=== PATIENT | female | born 1990 | race Caucasian/White ===

== ENCOUNTER 2016-04-15 06:48 | Inpatient (IN) | payer OTHER ==
[2016-03-05 14:06] VITALS: Ht 170.2 cm; Wt 65.4 kg
[~2016-04-15] VITALS: Ht 170.2 cm; Wt 65.4 kg
[2016-04-15] VITALS (16 sets, daily range): BP systolic 130–211; BP diastolic 64–142; PULSE 83–118; RESP 11–22; TEMP 97.8–98.6; O2SAT 91–100
[~2016-04-15 06:48] MED LIST: BUME1TAB4 PO; CAT1PAT TD; DOCU250C PO; ERYT500T74 PO; FURO-150 PO; HYDR-4039 PO; HYDR-4100 PO; HYDR100T25 PO; HYDR2TAB34 PO; LON10 PO; LORA-259 PO; NIFE-2 PO; NIFE10CA2 PO; OXYC10TA71 PO; SSNOVOLOG SUBCUT; TOPXL100 PO
[2016-04-15] MEDS ORDERED: hydrALAZINE HCL 20 MG/ML VIAL IVP ONE ×2 (07:30→10:15)
[2016-04-15 07:43] LABS: BASOPHILS # (AUTO) 0.1 K/uL (0.0-0.2); BASOPHILS % (AUTO) 1.1 % (0.0-2.0); EOSINOPHILS % (AUTO) 0.4 % (0.0-4.0); HEMATOCRIT 34.5 % (36-48); HEMOGLOBIN 11.5 g/dL (12.0-16.0); LYMPHOCYTES # (AUTO) 1.4 K/uL (1.0-5.5); LYMPHOCYTES % (AUTO) 11.4 % (20.5-51.5); MEAN CORPUSCULAR HEMOGLOBIN 31 pg (27-31); MEAN CORPUSCULAR HGB CONC 33 % (32-36); MEAN CORPUSCULAR VOLUME 92 fL (79.0-98.0); MONOCYTES # (AUTO) 0.4 K/uL (0.0-1.0); MONOCYTES % (AUTO) 3.3 % (1.7-9.3); NEUTROPHILS # (AUTO) 10.3 K/uL (1.8-7.7); PLATELET COUNT (AUTO) 324 K/uL (130-430); RED BLOOD CELL COUNT(AUTO) 3.75 MIL/uL (4.2-6.2); RED CELL DISTRIBUTION WIDTH 14.4 % (9.0-15.0); WHITE BLOOD COUNT (AUTO) 12.2 K/uL (4.8-10.8)
[2016-04-15] MEDS ORDERED: HYDROmorphone 1 MG INJ. 1 MG/ML AMPUL IVP ONE (07:45)
[2016-04-15] MEDS ORDERED: ONDANSETRON HCL 4 MG/2 ML VIAL IVP ONE (07:45)
[2016-04-15 07:56] LABS: CALCIUM 9.5 mg/dL (8.4-11.0); POTASSIUM 4.2 mmol/L (3.5-5.1)
[2016-04-15 07:57] LABS: CREATININE 3.62 mg/dL (0.55-1.30)
[2016-04-15] MEDS ORDERED: NACL 0.9% 500 ML IV ONE (08:00)
[2016-04-15 08:05] LABS: ALBUMIN 3.2 g/dL (3.4-4.8); TOTAL BILIRUBIN 0.9 mg/dL (0.0-1.0); TOTAL PROTEIN, SERUM 7.3 g/dL (6.4-8.3)
[2016-04-15 08:08] LABS: NEUTROPHILS % (AUTO) 83.8 % (40.0-70.0)
[2016-04-15 08:24] LABS: INR 1.1 (0.8-1.2); PROTHROMBIN TIME 11.5 SECS (9.5-12.5)
[2016-04-15] MEDS ORDERED: INSULIN REGULAR, HUMAN 10 UNITS/0.1 ML INJ IVP ONE (08:45)
[2016-04-15] MEDS ORDERED: INSULIN REGULAR, HUMAN 10 UNITS/0.1 ML INJ ONE (09:05)
[2016-04-15] MEDS ORDERED: cloNIDine HCL 0.1 MG TABLET PO PRN (09:45)
[2016-04-15] MEDS ORDERED: METOCLOPRAMIDE HCL 10 MG/2 ML VIAL IVP PRN (10:15)
[2016-04-15] MEDS ORDERED: hydrALAZINE HCL 20 MG/ML VIAL ONE (10:26)
[2016-04-15] MEDS ORDERED: cloNIDine HCL 0.1 MG/24 HR PATCH.TDWK TD ONE (11:00)
[2016-04-15] MEDS ORDERED: PANTOPRAZOLE SODIUM 40 MG/VIAL (PROTONIX) IVP ONE (11:00)
[2016-04-15] MEDS: METOPROLOL SUCCINATE 50 MG TAB.SR.24H (TOPROL XL) PO SCH (12:30)
[2016-04-15] MEDS ORDERED: NIFEDIPINE 60 MG TABLET.SA (PROCARDIA XL 60 MG) PO ONE (13:30)
[2016-04-15] MEDS: ONDANSETRON HCL 4 MG/2 ML VIAL IVP PRN ×2 (13:42→20:58)
[2016-04-15] MEDS ORDERED: HYDROmorphone 2 MG/ML VIAL ONE (13:50)
[2016-04-15] MEDS: hydrALAZINE HCL 25 MG TABLET PO SCH ×2 (13:56→21:02)
[2016-04-15] MEDS: LABETALOL 100 MG/ 20ML VIAL IVP PRN ×2 (14:57→20:48)
[2016-04-15] MEDS ORDERED: INSULIN ASPART 100 UNITS/ML, 10 ML VIAL (NovoLOG) SUBCUT PRN (16:15)
[2016-04-15] MEDS ORDERED: HEPARIN SODIUM,PORCINE 5000 UNITS/ML VIAL MC ONE (16:30)
[2016-04-15] MEDS ORDERED: HEPARIN SODIUM,PORCINE 5000 UNITS/ML VIAL ONE (16:33)
[2016-04-15] MEDS: HYDROmorphone 2 MG/ML VIAL IVP PRN (17:49)
[2016-04-15] MEDS: HYDROcodone/ACETAMIN 10-325 MG TAB PO PRN (20:59)
[2016-04-15] MEDS: DOCUSATE SODIUM 250 MG CAPSULE PO SCH (20:59)
[2016-04-15] MEDS ORDERED: NIFEdipine 10 MG CAPSULE PO SCH (21:00)
[2016-04-15] MEDS: INSULIN ASPART 100 UNITS/ML, 10 ML VIAL (NovoLOG) SUBCUT PRN (21:14)
[2016-04-16] VITALS (16 sets, daily range): BP systolic 125–176; BP diastolic 73–110; PULSE 78–95; RESP 12–18; TEMP 96–98.9; O2SAT 88–100
[2016-04-16] MEDS: HYDROmorphone 2 MG/ML VIAL IVP PRN ×6 (02:19→21:33)
[2016-04-16] MEDS: LABETALOL 100 MG/ 20ML VIAL IVP PRN ×2 (03:19→07:00)
[2016-04-16] MEDS: ONDANSETRON HCL 4 MG/2 ML VIAL IVP PRN (05:25)
[2016-04-16] MEDS: hydrALAZINE HCL 25 MG TABLET PO SCH ×3 (06:23→21:28)
[2016-04-16] MEDS: INSULIN ASPART 100 UNITS/ML, 10 ML VIAL (NovoLOG) SUBCUT PRN ×4 (06:31→21:38)
[2016-04-16 06:37] LABS: BASOPHILS % (AUTO) 0.6 % (0.0-2.0); EOSINOPHILS # (AUTO) 0.2 K/uL (0.0-0.4); HEMATOCRIT 29.8 % (36-48); HEMOGLOBIN 9.6 g/dL (12.0-16.0); LYMPHOCYTES % (AUTO) 25.9 % (20.5-51.5); MEAN CORPUSCULAR HEMOGLOBIN 30 pg (27-31); MEAN CORPUSCULAR HGB CONC 32 % (32-36); MEAN CORPUSCULAR VOLUME 93 fL (79.0-98.0); MONOCYTES # (AUTO) 0.4 K/uL (0.0-1.0); MONOCYTES % (AUTO) 5.5 % (1.7-9.3); NEUTROPHILS # (AUTO) 5.1 K/uL (1.8-7.7); PLATELET COUNT (AUTO) 242 K/uL (130-430); RED CELL DISTRIBUTION WIDTH 14.8 % (9.0-15.0); WHITE BLOOD COUNT (AUTO) 7.7 K/uL (4.8-10.8)
[2016-04-16 06:58] LABS: ALBUMIN 2.7 g/dL (3.4-4.8); CREATININE 2.91 mg/dL (0.55-1.30); POTASSIUM 3.4 mmol/L (3.5-5.1); TOTAL BILIRUBIN 0.5 mg/dL (0.0-1.0); TOTAL PROTEIN, SERUM 6.2 g/dL (6.4-8.3)
[2016-04-16] MEDS: PANTOPRAZOLE SODIUM 40 MG/VIAL (PROTONIX) IVP SCH (08:45)
[2016-04-16] MEDS: METOPROLOL SUCCINATE 50 MG TAB.SR.24H (TOPROL XL) PO SCH (08:45)
[2016-04-16] MEDS: DOCUSATE SODIUM 250 MG CAPSULE PO SCH ×2 (08:46→21:31)
[2016-04-16] MEDS: NIFEDIPINE 60 MG TABLET.SA (PROCARDIA XL 60 MG) PO SCH ×2 (08:48→21:31)
[2016-04-16] MEDS ORDERED: NIFEDIPINE 60 MG TABLET.SA (PROCARDIA XL 60 MG) PO SCH (09:00)
[2016-04-17 01:20] VITALS: BP 110/62; PULSE 75; RESP 18; TEMP 97.6; O2SAT 96
[2016-04-17] MEDS: HYDROmorphone 2 MG/ML VIAL IVP PRN ×6 (01:34→22:05)
[2016-04-17 04:00] VITALS: BP 126/77; PULSE 74; RESP 16; TEMP 98.2; O2SAT 96
[2016-04-17] MEDS: hydrALAZINE HCL 25 MG TABLET PO SCH ×3 (05:46→22:00)
[2016-04-17 08:10] VITALS: BP 152/95; PULSE 84; RESP 20; TEMP 98.8; O2SAT 98
[2016-04-17 08:14] LABS: BASOPHILS % (AUTO) 0.6 % (0.0-2.0); EOSINOPHILS # (AUTO) 0.2 K/uL (0.0-0.4); HEMATOCRIT 32.9 % (36-48); HEMOGLOBIN 10.5 g/dL (12.0-16.0); LYMPHOCYTES # (AUTO) 1.4 K/uL (1.0-5.5); LYMPHOCYTES % (AUTO) 20.6 % (20.5-51.5); MEAN CORPUSCULAR HEMOGLOBIN 30 pg (27-31); MEAN CORPUSCULAR HGB CONC 32 % (32-36); MEAN CORPUSCULAR VOLUME 93 fL (79.0-98.0); MONOCYTES # (AUTO) 0.4 K/uL (0.0-1.0); MONOCYTES % (AUTO) 5.2 % (1.7-9.3); NEUTROPHILS # (AUTO) 4.8 K/uL (1.8-7.7); NEUTROPHILS % (AUTO) 70.6 % (40.0-70.0); PLATELET COUNT (AUTO) 260 K/uL (130-430); RED BLOOD CELL COUNT(AUTO) 3.55 MIL/uL (4.2-6.2); RED CELL DISTRIBUTION WIDTH 14.7 % (9.0-15.0); WHITE BLOOD COUNT (AUTO) 6.8 K/uL (4.8-10.8)
[2016-04-17] MEDS: DOCUSATE SODIUM 250 MG CAPSULE PO SCH ×2 (08:17→22:00)
[2016-04-17] MEDS: PANTOPRAZOLE SODIUM 40 MG/VIAL (PROTONIX) IVP SCH (08:17)
[2016-04-17] MEDS: INSULIN ASPART 100 UNITS/ML, 10 ML VIAL (NovoLOG) SUBCUT PRN ×2 (08:18→17:15)
[2016-04-17 08:27] LABS: ALBUMIN 2.8 g/dL (3.4-4.8); CALCIUM 8.6 mg/dL (8.4-11.0); CREATININE 4.17 mg/dL (0.55-1.30); POTASSIUM 4.3 mmol/L (3.5-5.1); TOTAL BILIRUBIN 0.4 mg/dL (0.0-1.0); TOTAL PROTEIN, SERUM 6.7 g/dL (6.4-8.3)
[2016-04-17] MEDS: NIFEDIPINE 60 MG TABLET.SA (PROCARDIA XL 60 MG) PO SCH ×2 (09:00→22:00)
[2016-04-17] MEDS: METOPROLOL SUCCINATE 50 MG TAB.SR.24H (TOPROL XL) PO SCH (09:00)
[2016-04-17] MEDS ORDERED: busPIRone HCL 5 MG TABLET PO ONE (11:30)
[2016-04-17 12:31] VITALS: BP 136/84; PULSE 81; RESP 16; TEMP 97.6; O2SAT 91
[2016-04-17] MEDS ORDERED: HEPARIN SODIUM,PORCINE 5000 UNITS/ML VIAL ONE (13:11)
[2016-04-17 16:00] VITALS: BP_SYST 146; BP_SYST 92; BP_DIAS 57; BP_DIAS 91; PULSE 75; PULSE 83; RESP 20; RESP 21; TEMP 98.6; TEMP 99; O2SAT 98; O2SAT 99
[2016-04-17 20:00] VITALS: BP 159/109; PULSE 81; RESP 16; TEMP 98.9; O2SAT 99
[2016-04-17] MEDS: busPIRone HCL 5 MG TABLET PO SCH (22:00)
[2016-04-18 00:55] VITALS: BP 157/100; PULSE 82; RESP 18; TEMP 96.7; O2SAT 100
[2016-04-18] MEDS: HYDROmorphone 2 MG/ML VIAL IVP PRN ×4 (02:37→14:21)
[2016-04-18 03:42] VITALS: BP 159/104; PULSE 86; RESP 18; TEMP 96.7; O2SAT 99
[2016-04-18] MEDS: hydrALAZINE HCL 25 MG TABLET PO SCH ×2 (06:20→14:22)
[2016-04-18] MEDS: INSULIN ASPART 100 UNITS/ML, 10 ML VIAL (NovoLOG) SUBCUT PRN (06:42)
[2016-04-18 07:26] LABS: CALCIUM 8.7 mg/dL (8.4-11.0); CREATININE 3.3 mg/dL (0.55-1.30); POTASSIUM 4.1 mmol/L (3.5-5.1)
[2016-04-18 07:56] VITALS: BP 168/115; PULSE 95; RESP 20; TEMP 97.4; O2SAT 95
[2016-04-18] MEDS: busPIRone HCL 5 MG TABLET PO SCH (08:08)
[2016-04-18] MEDS: PANTOPRAZOLE SODIUM 40 MG/VIAL (PROTONIX) IVP SCH (08:08)
[2016-04-18] MEDS: DOCUSATE SODIUM 250 MG CAPSULE PO SCH (08:08)
[2016-04-18] MEDS: METOPROLOL SUCCINATE 50 MG TAB.SR.24H (TOPROL XL) PO SCH (08:09)
[2016-04-18] MEDS: NIFEDIPINE 60 MG TABLET.SA (PROCARDIA XL 60 MG) PO SCH (08:10)
[2016-04-18] MEDS: HYDROcodone/ACETAMIN 10-325 MG TAB PO PRN (08:10)
[2016-04-18 11:48] VITALS: BP 134/86; PULSE 82; RESP 21; TEMP 98.6; O2SAT 98
[2016-04-18 12:00] VITALS: BP 134/86; PULSE 82; RESP 21; TEMP 98.6; O2SAT 98
[2016-04-18] MEDS ORDERED: INSU100V11 SQ ×2 (12:55→12:57)
[2016-04-18] MEDS ORDERED: TOPXL100 PO (12:59)
[2016-04-18] MEDS ORDERED: NIFE60TA7 PO (13:01)
[2016-04-18] MEDS ORDERED: METO-290 PO (13:04)
[2016-04-18] MEDS ORDERED: BUSP10TA3 PO (13:05)
[2016-04-18 14:48] VITALS: BP 136/85; PULSE 93; RESP 19; TEMP 97; O2SAT 98
[2016-04-22] MEDS ORDERED: cloNIDine HCL 0.1 MG/24 HR PATCH.TDWK TD SCH (09:00)
== END 2016-04-18 14:41 | disposition home or self-care (01) | DRG 291 ==
LOC: SED 06:48 → SMU 08:36 → SIC 09:55 → STU 04-16 16:23 → SMU 04-17 17:38
PROVIDERS: ADMIT Internal Medicine; ATTEND Internal Medicine
PROC: 5A1D60Z (ICD-10-PCS; principal; 2016-04-15)
DX: I13.2 Hypertensive heart and chronic kidney disease with heart failure and with stage 5 chronic kidney disease, or end stage renal disease (principal); I50.43 Acute on chronic combined systolic (congestive) and diastolic (congestive) heart failure; N18.6 End stage renal disease; F11.20 Opioid dependence, uncomplicated; I42.9 Cardiomyopathy, unspecified; I16.0 Hypertensive urgency; E10.22 Type 1 diabetes mellitus with diabetic chronic kidney disease; E10.65 Type 1 diabetes mellitus with hyperglycemia; G89.4 Chronic pain syndrome; K31.9 Disease of stomach and duodenum, unspecified; E86.0 Dehydration; E10.319 Type 1 diabetes mellitus with unspecified diabetic retinopathy without macular edema; E10.69 Type 1 diabetes mellitus with other specified complication; E10.43 Type 1 diabetes mellitus with diabetic autonomic (poly)neuropathy; H54.7 Unspecified visual loss; K31.84 Gastroparesis; M54.9 Dorsalgia, unspecified; Z79.4 Long term (current) use of insulin; Z91.14 Patient's other noncompliance with medication regimen; Z99.2 Dependence on renal dialysis; Z87.891 Personal history of nicotine dependence; Z93.0 Tracheostomy status; Z93.1 Gastrostomy status; Z88.8 Allergy status to other drugs, medicaments and biological substances; Z88.6 Allergy status to analgesic agent; Z91.040 Latex allergy status; Z79.899 Other long term (current) drug therapy
CPT/HCPCS: 36415; 71010; 80048; 80053; 82962; 83036; 83605; 83690-TC; 83880; 84100-TC; 84484; 84703; 85025; 85610-TC; 85730-TC; 87040-TC; 87081; 90935; 90937; 93005; 96361; 96374; 96375; 99285; C9113; J0360; J1170; J1644; J1815; J2405; J2765; J3490; J7030; J7040

== ENCOUNTER 2016-05-11 11:00 | Inpatient (IN) | payer OTHER ==
[2016-03-05 14:06] VITALS: Ht 170.2 cm; Wt 68.0 kg
[~2016-05-11] VITALS: Ht 170.2 cm; Wt 68.0 kg
[~2016-05-11 11:00] MED LIST changes: +BUSP10TA3 PO; +INSU100V11 SQ; +METO-290 PO; +NIFE60TA7 PO
[2016-05-11 11:14] VITALS: BP 157/101; PULSE 79; RESP 20; TEMP 97.9; O2SAT 98
--- NOTE | 2016-05-11 11:18 | NUR ---
Pt placed to ER bed 02 and to gown. Pt report given to AMANDA Richard.
--- NOTE | 2016-05-11 11:20 | NUR ---
ER at bedside examining patient.
--- NOTE | 2016-05-11 11:25 | NUR ---
Pt presents to ED c/o elevated BP from dialysis. Pt reports receiving full dialysis. BP 177/95 upon assessment. Pt h/o HTN,ESRD,IDDM
[2016-05-11 11:53] LABS: BILIRUBIN,URINE NEGATIVE (NEGATIVE); CLARITY/URINE CLEAR (CLEAR); COLOR,URINE YELLOW (YELLOW); GLUCOSE,URINE 3+ (NEGATIVE); KETONES,URINE NEGATIVE (NEGATIVE); LEUKOCYTE ESTERASE ,URINE NEGATIVE (NEGATIVE); NITRITE, URINE NEGATIVE (NEGATIVE); PH,URINE 7.5 (5.0-8.0); PROTEIN URINE 3+ (NEGATIVE); UROBILINOGEN,URINE 0.2 (0.2-1.0)
[2016-05-11 12:12] LABS: BASOPHILS % (AUTO) 0.3 % (0.0-2.0); EOSINOPHILS # (AUTO) 0.2 K/uL (0.0-0.4); EOSINOPHILS % (AUTO) 2.7 % (0.0-4.0); HEMATOCRIT 35.6 % (36-48); LYMPHOCYTES # (AUTO) 1.6 K/uL (1.0-5.5); LYMPHOCYTES % (AUTO) 20.9 % (20.5-51.5); MEAN CORPUSCULAR HEMOGLOBIN 31 pg (27-31); MEAN CORPUSCULAR HGB CONC 34 % (32-36); MEAN CORPUSCULAR VOLUME 92 fL (79.0-98.0); MONOCYTES # (AUTO) 0.4 K/uL (0.0-1.0); MONOCYTES % (AUTO) 5.5 % (1.7-9.3); NEUTROPHILS # (AUTO) 5.4 K/uL (1.8-7.7); NEUTROPHILS % (AUTO) 70.6 % (40.0-70.0); PLATELET COUNT (AUTO) 226 K/uL (130-430); RED BLOOD CELL COUNT(AUTO) 3.85 MIL/uL (4.2-6.2); RED CELL DISTRIBUTION WIDTH 14.3 % (9.0-15.0); WHITE BLOOD COUNT (AUTO) 7.6 K/uL (4.8-10.8)
[2016-05-11 12:16] LABS: BLOOD, URINE TRACE (NEGATIVE)
[2016-05-11 12:18] LABS: RBC,URINE 0-3 /HPF (0-3)
[2016-05-11 12:19] LABS: CALCIUM 8.9 mg/dL (8.4-11.0); CREATININE 2.53 mg/dL (0.55-1.30); POTASSIUM 3.6 mmol/L (3.5-5.1)
[2016-05-11 12:19] LABS: BACTERIA,URINE FEW /HPF (None Seen); MUCUS,URINE None Seen /LPF (None Seen)
[2016-05-11 12:22] LABS: PROTHROMBIN TIME 10.8 SECS (9.5-12.5)
[2016-05-11 12:24] LABS: ALBUMIN 3.1 g/dL (3.4-4.8); TOTAL BILIRUBIN 0.7 mg/dL (0.0-1.0); TOTAL PROTEIN, SERUM 7.2 g/dL (6.4-8.3)
--- NOTE | 2016-05-11 12:30 | NUR ---
# 20 gauge angiocath placed to LH. Use of asceptic technique. Opsite placed over site. Blood return noted. Flushed with 10 cc of normal saline. No evidence of infiltration noted. Patient tolerated well.
[2016-05-11] MEDS ORDERED: INSULIN REGULAR, HUMAN 100 UNITS/ML, 10 ML VIAL (novoLIN R) SUBCUT PRN (13:30)
[2016-05-11] MEDS ORDERED: MAGNESIUM CITRATE 300 ML ORAL SOLUTION PO ONE (13:30)
[2016-05-11] MEDS ORDERED: cloNIDine HCL 0.1 MG TABLET PO ONE (13:30)
--- NOTE | 2016-05-11 13:40 | NUR ---
Pt medicated tolerated well.
[2016-05-11] MEDS ORDERED: ONDANSETRON HCL 4 MG/2 ML VIAL IVP ONE (14:00)
[2016-05-11] MEDS ORDERED: DEXTROSE 50%-WATER 50 ML DISP.SYRIN IVP PRN ×2 (14:00)
[2016-05-11] MEDS ORDERED: GLUCOSE 15 GM GEL (in 37.5 GM TUBE) PO PRN ×2 (14:00)
--- NOTE | 2016-05-11 14:10 | NUR ---
Patient will be admitted to care of . Admitted to Telemetry unit. Will go to room 110B. Summary report printed. Report given to Admission RN.
--- NOTE | 2016-05-11 14:10 | NUR ---
ADMIT NOTE Received pt from ER to the floor with a diagnosis of Hypertensive Urgency. Admission process initiated. patient oriented to pain management, safety and call light-teach back done.
[2016-05-11] MEDS ORDERED: MORPHINE 2 MG/ML INJ. SYRINGE IVP PRN (14:45)
[2016-05-11] MEDS ORDERED: POTASSIUM CHLORIDE 10 MEQ TAB.PRT.SR PO PRN (14:45)
[2016-05-11] MEDS ORDERED: ONDANSETRON HCL 4 MG/2 ML VIAL IVP PRN (14:45)
[2016-05-11] MEDS ORDERED: MAGNESIUM SULFATE 50 ML IV PRN (14:45)
[2016-05-11] MEDS ORDERED: LORazepam 2 MG/ML VIAL IVP PRN (14:45)
[2016-05-11] MEDS ORDERED: ACETAMINOPHEN 325 MG TABLET PO PRN (14:45)
[2016-05-11] MEDS ORDERED: ZOLPIDEM TARTRATE 5 MG TABLET PO PRN (14:45)
[2016-05-11] MEDS ORDERED: METOCLOPRAMIDE HCL 10 MG TABLET PO PRN (14:45)
[2016-05-11] MEDS ORDERED: HYDROcodone/ACETAMIN 10-325 MG TAB PO SCH (14:45)
[2016-05-11] MEDS ORDERED: DOCUSATE SODIUM 100 MG CAPSULE PO PRN (14:45)
--- NOTE | 2016-05-11 15:00 | NUR ---
ADMISSION ASSESSMENT 26YO FEMALE ADMITTED FOR HYPERTENSIVE URGENCY; PATIENT HAD ELEVATED BP DURING HD UNRESOLVED WITH PO MEDICATIONS AT CLINIC (200/110 [place] PATIENT). A/OX4, PATIENT HAS DIFFICULTY AMBULATING DUE TO BLE SWELLING AND WEAKNESS, USES FWW FROM HOME. LUNGS CTAB ON RA. CARDIAC RRR, NO MURMURS OR RUBS ON AUSCULTATION, NSR ON TELE. BOWEL SOUNDS ACTIVE X 4, SOFT BUT TENDER, PER PATIENT SEVERE SHARP ABDOMINAL PAIN TO EPIGASTRIC AND RIGHT UPPER QUADRANT, KUB SHOWED STOOL FILLED BOWEL. CONTINENT OF BOWEL AND BLADDER, PATIENT HAS REDUCED URINE OUTPUT DUE TO ESRD AND HD. SKIN INTACT. PATIENT STATES SHE HAS ABDOMINAL PAIN WORSE WITH EATING; WILL PAGE MD FOR PAIN MEDICATION ORDERS. BED IN LOW AND LOCKED POSITION WITH BED ALARM ON AND CALL LIGHT IN REACH, PATIENT VERBALIZED UNDERSTANDING FOR USE. WILL CONTINUE TO MONITOR.
[2016-05-11 15:22] VITALS: BP 159/103; PULSE 77; RESP 18; TEMP 98.4; O2SAT 100
[2016-05-11] MEDS ORDERED: HYDROcodone/ACETAMIN 10-325 MG TAB PO PRN (15:45)
--- NOTE | 2016-05-11 15:57 | NUR ---
Consult Order received for a consult with Dr Quevedo, spoke with Melissa at his office. Will follow up as needed.
[2016-05-11 16:00] VITALS: BP 119/69; PULSE 75; RESP 16; TEMP 99.1; O2SAT 95
--- NOTE | 2016-05-11 16:00 | NUR ---
ROUNDS PATIENT DECLINED CT ABDOMEN AND PELVIS BECAUSE SHE SAID, "THEY HAVE DONE THAT TEST BEFORE AND NEVER FOUND THE CAUSE OF HER ABDOMINAL PAIN AND DOESN'T WANT TO BE EXPOSED TO EXTRA RADIATION." PATIENT PROVIDED WITH PAIN MEDICATION AND REGLAN FOR 7/10 PAIN IN UPPER ABDOMEN. KITCHEN TO PROVIDE PATIENT WITH SANDWICH PRIOR TO DINNER; ACCU-CHECK TO BE PERFORMED WHEN MEAL ARRIVES. ALL SAFETY MEASURES REMAIN IN PLACE. WILL CONTINUE TO MONITOR.
--- NOTE | 2016-05-11 17:05 | NUR ---
AMA: Patient does not wish to proceed with medical care recommended by Dr. Girard. Patient given information related to possible complications, up to and including , which could occur as a result of leaving hospital at this time. Patient verbalizes understanding of risks involved leaving against medical advice. Patient has signed AMA form. IV catheter and telemetry box removed from patient prior to departure without incident or continued bleeding.
[2016-05-11] MEDS ORDERED: NIFEDIPINE 60 MG TABLET.SA (PROCARDIA XL 60 MG) PO SCH (21:00)
[2016-05-11] MEDS ORDERED: DOCUSATE SODIUM 250 MG CAPSULE PO SCH (21:00)
[2016-05-11] MEDS ORDERED: busPIRone HCL 5 MG TABLET PO SCH (21:00)
[2016-05-11] MEDS ORDERED: HEPARIN SODIUM,PORCINE 5000 UNITS/ML VIAL SUBCUT SCH (21:00)
[2016-05-11] MEDS ORDERED: hydrALAZINE HCL 25 MG TABLET PO SCH (22:00)
[2016-05-12] MEDS ORDERED: METOPROLOL SUCCINATE 50 MG TAB.SR.24H (TOPROL XL) PO SCH (09:00)
[2016-05-13] MEDS ORDERED: cloNIDine HCL 0.1 MG/24 HR PATCH.TDWK TD SCH (09:00)
== END 2016-05-11 17:00 | disposition left against medical advice (07) | DRG 304 ==
LOC: SED 11:00 → SMU 13:28 → STU 14:10
PROVIDERS: ADMIT General Practice; ATTEND General Practice
DX: I16.0 Hypertensive urgency (principal); N18.6 End stage renal disease; I13.2 Hypertensive heart and chronic kidney disease with heart failure and with stage 5 chronic kidney disease, or end stage renal disease; I50.9 Heart failure, unspecified; G89.29 Other chronic pain; E10.22 Type 1 diabetes mellitus with diabetic chronic kidney disease; M54.9 Dorsalgia, unspecified; Z53.21 Procedure and treatment not carried out due to patient leaving prior to being seen by health care provider; Z99.2 Dependence on renal dialysis; Z88.8 Allergy status to other drugs, medicaments and biological substances; Z88.6 Allergy status to analgesic agent; Z91.040 Latex allergy status; Z79.899 Other long term (current) drug therapy
CPT/HCPCS: 36415; 71010; 74000-TC; 80053; 81000-TC; 82962; 83880; 84484; 85025; 85610-TC; 93005; 96374; 99285; J1815; J2405; J8597

== ENCOUNTER 2016-06-29 11:45 | Inpatient (IN) | payer OTHER ==
[~2016-06-29] VITALS: Ht 170.2 cm; Wt 62.6 kg
--- NOTE | 2016-06-29 11:48 | NUR ---
Philomena as a walkin from Dr. Fragoso's office with compliant of abd pain, back pain, left lateral rib pain, vomting x 1 day. Placed in room 8 . Placed on spray mixer, blood pressure machine and pulse oximeter. To gown for exam. Side rails up. Report given to Jose Manuel PATEL.
[2016-06-29 11:50] VITALS: BP 201/132; PULSE 102; RESP 18; TEMP 98; O2SAT 98
--- NOTE | 2016-06-29 11:55 | NUR ---
ER Dr. Paz at bedside examining patient.
[2016-06-29] MEDS ORDERED: ONDANSETRON HCL 4 MG/2 ML VIAL IVP ONE (12:00)
[2016-06-29] MEDS ORDERED: METOPROLOL TARTRATE 5 MG/5 ML VIAL IVP ONE ×2 (12:00→14:45)
[2016-06-29] MEDS ORDERED: HYDROmorphone 1 MG INJ. 1 MG/ML AMPUL IVP ONE ×2 (12:00→13:45)
--- NOTE | 2016-06-29 12:00 | NUR ---
Pt sent from Dialysis after completion for c/o pain and htn. Pt AAOx4, h/o htn,ERSD w hemodialysis (,,). Pt denies being anuric, Pt will attempt to give specimen soon.
--- NOTE | 2016-06-29 12:20 | NUR ---
# 20 gauge angiocath placed to RFA. Use of asceptic technique. Opsite placed over site. Blood return noted. Flushed with 10 cc of normal saline. No evidence of infiltration noted. Patient tolerated well.
[2016-06-29 12:34] LABS: BASOPHILS % (AUTO) 0.3 % (0.0-2.0); EOSINOPHILS # (AUTO) 0.2 K/uL (0.0-0.4); EOSINOPHILS % (AUTO) 2.3 % (0.0-4.0); HEMATOCRIT 31.9 % (36-48); LYMPHOCYTES # (AUTO) 1.3 K/uL (1.0-5.5); LYMPHOCYTES % (AUTO) 16.3 % (20.5-51.5); MEAN CORPUSCULAR HEMOGLOBIN 31 pg (27-31); MEAN CORPUSCULAR HGB CONC 34 % (32-36); MEAN CORPUSCULAR VOLUME 90 fL (79.0-98.0); MONOCYTES # (AUTO) 0.5 K/uL (0.0-1.0); MONOCYTES % (AUTO) 5.7 % (1.7-9.3); NEUTROPHILS # (AUTO) 5.9 K/uL (1.8-7.7); NEUTROPHILS % (AUTO) 75.4 % (40.0-70.0); PLATELET COUNT (AUTO) 201 K/uL (130-430); RED BLOOD CELL COUNT(AUTO) 3.56 MIL/uL (4.2-6.2); RED CELL DISTRIBUTION WIDTH 12.9 % (9.0-15.0); WHITE BLOOD COUNT (AUTO) 7.9 K/uL (4.8-10.8)
[2016-06-29 12:39] LABS: CALCIUM 8.6 mg/dL (8.4-11.0); CREATININE 2.85 mg/dL (0.55-1.30)
[2016-06-29 12:43] LABS: PROTHROMBIN TIME 11.3 SECS (9.5-12.5)
[2016-06-29 12:46] LABS: ALBUMIN 3.1 g/dL (3.4-4.8); TOTAL BILIRUBIN 0.5 mg/dL (0.0-1.0); TOTAL PROTEIN, SERUM 6.9 g/dL (6.4-8.3)
--- NOTE | 2016-06-29 13:00 | NUR ---
Pt tolerated medication well.Conyinuing to monitor. BP 171/113
[2016-06-29 13:32] LABS: BILIRUBIN,URINE NEGATIVE (NEGATIVE); BLOOD, URINE 1+ (NEGATIVE); CLARITY/URINE CLEAR (CLEAR); COLOR,URINE YELLOW (YELLOW); GLUCOSE,URINE 2+ (NEGATIVE); KETONES,URINE NEGATIVE (NEGATIVE); LEUKOCYTE ESTERASE ,URINE NEGATIVE (NEGATIVE); NITRITE, URINE NEGATIVE (NEGATIVE); PH,URINE 7.5 (5.0-8.0); PROTEIN URINE 3+ (NEGATIVE); UROBILINOGEN,URINE 0.2 (0.2-1.0)
[2016-06-29 13:57] LABS: WBC,URINE 0-3 /HPF (0-3)
[2016-06-29 13:58] LABS: BACTERIA,URINE FEW /HPF (None Seen); MUCUS,URINE 1+ /LPF (None Seen)
--- NOTE | 2016-06-29 14:23 | NUR ---
Pt reports pain resolving
--- NOTE | 2016-06-29 15:15 | NUR ---
Endorsed pt from AMANDA Richard
[2016-06-29] MEDS ORDERED: hydrALAZINE HCL 20 MG/ML VIAL IVP ONE (15:30)
[2016-06-29] MEDS ORDERED: BUME1TAB4 PO (15:39)
[2016-06-29] MEDS ORDERED: PRO40 PO (15:39)
[2016-06-29] MEDS ORDERED: CYM30 PO (15:39)
[2016-06-29] MEDS ORDERED: ONDANSETRON HCL 4 MG/2 ML VIAL IVP PRN (16:00)
[2016-06-29] MEDS ORDERED: LABETALOL 100 MG/ 20ML VIAL IVP ONE (16:00)
[2016-06-29] MEDS ORDERED: DEXTROSE 50% JECT 50 ML DISP.SYRIN IVP PRN (16:00)
[2016-06-29] MEDS ORDERED: ACETAMINOPHEN 325 MG TABLET PO PRN (16:00)
--- NOTE | 2016-06-29 16:58 | NUR ---
ADMIT NOTE Received pt from ER to the floor with a diagnosis of hypertensive crisis. Admission process initiated. Patient oriented to pain management, safety and call light-teach back done.
--- NOTE | 2016-06-29 17:00 | NUR ---
Patient will be admitted to care of Dr. Irizarry. Admitted to tele unit. Will go to room 101-a. Belongings list completed. Report given to AMANDA Leong.
[2016-06-29 17:12] VITALS: BP 171/121; PULSE 90; RESP 18; TEMP 96.5; O2SAT 94
--- NOTE | 2016-06-29 17:15 | NUR ---
ADMISSION Pt A/Ox4..HL to RFA inserted by ER...Pt with willis cath to Right chest wall for dialysis access..Will review and carry out orders...Call light/phone w/inr each....Will cont to monitor
--- NOTE | 2016-06-29 17:45 | NUR ---
Dr Palmer Consult rec'd with Dr Palmer. aware that the pt has been admitted. Pt came from his office. Will follow up as needed.
--- NOTE | 2016-06-29 17:49 | NUR ---
CONSULT SURGICAL ABDOMINAL PAIN DR DIAZ [phone] S/W SHEY SUMMERS @[id number]
--- NOTE | 2016-06-29 18:00 | NUR ---
ABDOMINAL AND LOWER BACK PAIN No IV meds ordered...Dr. Edie ng
--- NOTE | 2016-06-29 18:38 | NUR ---
IV PAIN MEDICATION ORDERED BY DR HYLTON COVERING NURSE WILL MEDICATE
[2016-06-29] MEDS: INSULIN REGULAR, HUMAN 100 UNITS/ML, 10 ML VIAL (novoLIN R) SUBCUT PRN (18:48)
[2016-06-29] MEDS: HYDROmorphone 1 MG INJ. 1 MG/ML AMPUL IVP PRN ×2 (19:27→23:42)
--- NOTE | 2016-06-29 20:00 | NUR ---
Initial note Received awake, alert & oriented x 4. Stated pain level down to 4/10 after pain medication administered by prior shift RN. Denies shortness of breath. Right wrist saline lock intact & patent. Able to ambulate to bathroom without assist. Instructed to notify staff if in need of assistance. Verbalized understanding. Call light within reach, bed alarm on.
[2016-06-29 20:30] VITALS: BP 165/111; PULSE 89; RESP 18; TEMP 98.5; O2SAT 95
[2016-06-29] MEDS: BUMETANIDE 1 MG TABLET PO SCH (20:57)
[2016-06-29] MEDS: METOPROLOL SUCCINATE 50 MG TAB.SR.24H (TOPROL XL) PO SCH (20:57)
[2016-06-29] MEDS: DOCUSATE SODIUM 250 MG CAPSULE PO SCH (20:57)
--- NOTE | 2016-06-29 20:59 | NUR ---
Blood pressure BP 165/111. Due Toprol po given.
[2016-06-29] MEDS: hydrALAZINE HCL 25 MG TABLET PO SCH (22:15)
--- NOTE | 2016-06-29 22:15 | NUR ---
Blood pressure BP 186/115, hr 90. Scheduled dose of Apresoline given as ordered. Will notify
--- NOTE | 2016-06-29 22:45 | NUR ---
Blood pressure Dr. Irizarry paged and notified regarding BP 186/115 with new order given.
--- NOTE | 2016-06-29 23:42 | NUR ---
Pain c/o lower abdominal pain rated 8/10 described as aching/throbbing pain. Dilaudid IV given as ordered.
[2016-06-29] MEDS: cloNIDine HCL 0.1 MG TABLET PO PRN (23:43)
--- NOTE | 2016-06-29 23:43 | NUR ---
Blood pressure Clonidine 0.1 mg po given for blood pressure of 189/128. Will continue to monitor.
--- NOTE | 2016-06-29 23:43 | NUR ---
Blood sugar Fingerstick checked = 162 mg/dL. No s/s of hypo/hyperglycemia. Refused sliding scale coverage. Stated "I'm on a clear liquid diet, I don't want to bottom out."
[2016-06-30] VITALS (7 sets, daily range): BP systolic 144–179; BP diastolic 88–114; PULSE 76–89; RESP 12–19; TEMP 97.5–98.8; O2SAT 93–97; Ht 170.2 cm; Wt 62.6 kg
[2016-06-30] MEDS: HYDROmorphone 1 MG INJ. 1 MG/ML AMPUL IVP PRN ×4 (03:59→20:17)
--- NOTE | 2016-06-30 03:59 | NUR ---
Pain c/o abdominal pain rated 7/10 described as throbbing/aching pain. Dilaudid IV administered as ordered.
--- NOTE | 2016-06-30 04:00 | NUR ---
PATIENT RESTING: Patient resting quietly. No acute distress noted. Vital signs within normal range. Addendum: 07/01/16 at 0617 by Kati Molina RN WRONG ENTRY
--- NOTE | 2016-06-30 06:45 | NUR ---
Blood sugar Fingerstick checked = 173 mg/dL. No s/s of hypo/hyperglycemia. Refused sliding scale coverage, stated "I don't want to bottom out, I'm on a clear liquid diet."
[2016-06-30] MEDS: hydrALAZINE HCL 25 MG TABLET PO SCH ×3 (06:46→21:59)
[2016-06-30] MEDS: cloNIDine HCL 0.1 MG TABLET PO PRN (06:46)
--- NOTE | 2016-06-30 06:46 | NUR ---
Blood pressure BP 169/112, hr 79. Scheduled Apresoline and Clonidine 0.1 mg po given as ordered.
--- NOTE | 2016-06-30 07:00 | NUR ---
Closing note Resting quietly, easily aroused. No c/o pain or discomfort. All needs attended to. Call light within reach. Will give report via SBAR to LESLIE Heredia.
--- NOTE | 2016-06-30 07:15 | NUR ---
AM ROUNDS Pt A/O x4, c/o abdominal and back pain..Informed pt that pain medication not due for another 45 minutes...HL to RFA flushes well...Pt tolerating clear liquids..Ambulates w/stand by assistance or FWW...Call light/phone w/in reach...Will cont to monitor
[2016-06-30] MEDS: DULoxetine HCL 30 MG CAPSULE.DR (CYMBALTA) PO SCH (08:21)
[2016-06-30] MEDS: PANTOPRAZOLE SODIUM 40 MG TAB PO SCH (08:21)
[2016-06-30] MEDS: METOPROLOL SUCCINATE 50 MG TAB.SR.24H (TOPROL XL) PO SCH ×2 (08:22→20:18)
[2016-06-30] MEDS: NIFEDIPINE 60 MG TABLET.SA (PROCARDIA XL 60 MG) PO SCH (08:22)
[2016-06-30] MEDS: DOCUSATE SODIUM 250 MG CAPSULE PO SCH ×2 (08:23→20:18)
[2016-06-30] MEDS: BUMETANIDE 1 MG TABLET PO SCH ×2 (08:23→21:58)
--- NOTE | 2016-06-30 08:25 | NUR ---
PT WITH BAG OF [employer] FOOD ON BEDSIDE TABLE INFORMED PT THAT SHE IS ON CLEAR LIQUIDS FOR HER C/O ABDOMINAL PAIN..PT STATES THAT SHE IS WAITING FOR MD TO ASK IF SHE CAN EAT IT
--- NOTE | 2016-06-30 09:00 | NUR ---
DR HYLTON AT BEDSIDE
--- NOTE | 2016-06-30 11:43 | NUR ---
PT STABLE NO CHANGES...PT NPO FOR HIDA SCAN TODAY
--- NOTE | 2016-06-30 13:51 | NUR ---
TRANSPORTED TO [facility] VIA
--- NOTE | 2016-06-30 17:21 | NUR ---
ROUNDS PT STABLE..NO CHANGES..WILL CONT TO MONITOR
--- NOTE | 2016-06-30 17:33 | NUR ---
PT REFUSING 2 UNITS OF NOVOLIN FOR BS: 193
--- NOTE | 2016-06-30 20:00 | NUR ---
ROUNDS PATIENT RESTING COMFORTABLY IN BED, VITALS STABLE, NO PAIN AND DISCOMFORT AT THIS TIME. ASSESSMENT DONE AND DOCUMENTED. SEE FLOWSHEET.NEEDS ATTENDED TO. SAFETY AND FALL PRECAUTION MEASURES IN PLACED. BED IN LOW AND LOCKED POSITION. CALL LIGHT PLACED WITHIN REACH.
--- NOTE | 2016-06-30 21:00 | NUR ---
MEDICATION DUE MEDICATIONS GIVEN SCHEDULED, TOLERATED WELL. WILL CONTINUE TO MONITOR.
--- NOTE | 2016-07-01 00:08 | NUR ---
NOTES PATIENT REFUSING BLOOD SUGAR CHECK AT THIS TIME SAYING HER BLOOD SUGAR WAS GOOD EARLIER AT SHE ALSO DID NOT EAT MUCH. WILL CONTINUE TO MONITOR.
[2016-07-01 00:25] VITALS: BP 156/99; PULSE 75; RESP 18; TEMP 97.1; O2SAT 95
[2016-07-01] MEDS: HYDROmorphone 1 MG INJ. 1 MG/ML AMPUL IVP PRN ×6 (00:41→23:22)
--- NOTE | 2016-07-01 02:00 | NUR ---
ROUNDS PATIENT ASLEEP, NOT IN DISTRESS, WILL CONTINUE TO MONITOR.
[2016-07-01 04:00] VITALS: BP 162/115; PULSE 77; RESP 17; TEMP 97.9; O2SAT 93
--- NOTE | 2016-07-01 04:10 | NUR ---
ROUNDS PATIENT ASLEEP, NO SOB NOR PAIN AND DISCOMFORT NOTED. WILL CONTINUE TO MONITOR.
[2016-07-01] MEDS: hydrALAZINE HCL 25 MG TABLET PO SCH ×3 (05:16→21:12)
--- NOTE | 2016-07-01 06:43 | NUR ---
CLOSING NOTES PATIENT AWAKE, VITALS STABLE, NO MORE PAIN AT THIS TIME. ACCU CHECK DONE WITH BLOOD SUGAR OF 136 MG/DL, NO INSULIN COVERAGE PER SLIDING SCALE. ALL NEEDS ATTENDED TO. CALL LIGHT PLACED WITHIN REACH.
[2016-07-01 07:12] LABS: EOSINOPHILS # (AUTO) 0.3 K/uL (0.0-0.4); LYMPHOCYTES # (AUTO) 1.9 K/uL (1.0-5.5); MEAN CORPUSCULAR HEMOGLOBIN 30 pg (27-31); MEAN CORPUSCULAR HGB CONC 34 % (32-36); RED CELL DISTRIBUTION WIDTH 13.3 % (9.0-15.0)
[2016-07-01 07:18] LABS: BASOPHILS % (AUTO) 0.4 % (0.0-2.0); HEMATOCRIT 32.6 % (36-48); HEMOGLOBIN 10.9 g/dL (12.0-16.0); LYMPHOCYTES % (AUTO) 26.5 % (20.5-51.5); MEAN CORPUSCULAR VOLUME 90 fL (79.0-98.0); MONOCYTES # (AUTO) 0.4 K/uL (0.0-1.0); MONOCYTES % (AUTO) 6.1 % (1.7-9.3); NEUTROPHILS # (AUTO) 4.6 K/uL (1.8-7.7); PLATELET COUNT (AUTO) 206 K/uL (130-430); RED BLOOD CELL COUNT(AUTO) 3.65 MIL/uL (4.2-6.2); WHITE BLOOD COUNT (AUTO) 7.2 K/uL (4.8-10.8)
--- NOTE | 2016-07-01 07:30 | NUR ---
rn notes. patient is aaox 4. lungs bilaterally clear. abdomen soft and non distended. has rt willis catheter in placed on rt chest dry/intact. has iv access on the rt forearm #22. saline lock patent/dry. call lights within reach. safety measures maintained. informed patient to call for assistance. bed in low position. patient is aware of hemodialysis today.
[2016-07-01 07:37] LABS: ALBUMIN 2.8 g/dL (3.4-4.8); CALCIUM 8.9 mg/dL (8.4-11.0); CREATININE 4.14 mg/dL (0.55-1.30); PHOSPHORUS 4.8 mg/dL (2.7-4.5); POTASSIUM 4.7 mmol/L (3.5-5.1); TOTAL BILIRUBIN 0.5 mg/dL (0.0-1.0); TOTAL PROTEIN, SERUM 6.3 g/dL (6.4-8.3)
[2016-07-01 08:04] VITALS: BP 190/117; PULSE 78; RESP 18; TEMP 97.5; O2SAT 94
[2016-07-01] MEDS: DULoxetine HCL 30 MG CAPSULE.DR (CYMBALTA) PO SCH (08:35)
[2016-07-01] MEDS: NIFEDIPINE 60 MG TABLET.SA (PROCARDIA XL 60 MG) PO SCH (08:35)
[2016-07-01] MEDS: DOCUSATE SODIUM 250 MG CAPSULE PO SCH ×2 (08:35→21:10)
[2016-07-01] MEDS: PANTOPRAZOLE SODIUM 40 MG TAB PO SCH (08:35)
[2016-07-01] MEDS: METOPROLOL SUCCINATE 50 MG TAB.SR.24H (TOPROL XL) PO SCH ×2 (08:35→21:11)
--- NOTE | 2016-07-01 08:40 | NUR ---
due medication given at this time made comfortable
[2016-07-01] MEDS ORDERED: cloNIDine HCL 0.1 MG/24 HR PATCH.TDWK TD SCH (09:00)
[2016-07-01] MEDS: BUMETANIDE 1 MG TABLET PO SCH ×2 (09:48→21:12)
--- NOTE | 2016-07-01 09:51 | NUR ---
bumex 1 mg po given made comfortable.
--- NOTE | 2016-07-01 10:33 | NUR ---
Pulmo Consult: for Dr. Polanco, regarding SOB, ordered by Dr. Irizarry, spoke with Manisha.
--- NOTE | 2016-07-01 10:36 | NUR ---
GI consult: for Dr. Machado, regarding abdominal pain, ordered by Dr. Irizarry, spoke with Aurora.
--- NOTE | 2016-07-01 11:32 | NUR ---
latest bs is 160 mg/dl. assists on adls.
[2016-07-01 11:44] VITALS: BP 186/121; PULSE 74; RESP 16; TEMP 98.1; O2SAT 98
--- NOTE | 2016-07-01 11:50 | NUR ---
started dialysis at this time.
--- NOTE | 2016-07-01 12:00 | NUR ---
refused to have insulin coverage
[2016-07-01] MEDS: INSULIN REGULAR, HUMAN 100 UNITS/ML, 10 ML VIAL (novoLIN R) SUBCUT PRN ×2 (12:59→18:08)
[2016-07-01] MEDS ORDERED: HEPARIN SODIUM,PORCINE 5000 UNITS/ML VIAL IV ONE (13:00)
--- NOTE | 2016-07-01 13:03 | NUR ---
still on dialysis procedure. tolerating well.
[2016-07-01] MEDS: cloNIDine HCL 0.1 MG TABLET PO PRN (13:11)
--- NOTE | 2016-07-01 13:29 | NUR ---
dr vegas called and will see the patient in am
--- NOTE | 2016-07-01 14:55 | NUR ---
dialysis done at this time. 2.3 liters out on dialysis. bp is 135/91
--- NOTE | 2016-07-01 14:56 | NUR ---
Dr Polanco came and evaluate the patient.
--- NOTE | 2016-07-01 15:26 | NUR ---
called [facility] for Abg on room air.
[2016-07-01 15:55] LABS: ABG TOTAL HEMOGLOBIN 11.9 G/dL (12.0-18.0); BLOOD GAS BASE EXCESS 2.9 mmol/L (-3.0-3.0); BLOOD GAS HHB 7.4 % (0.0-6.0); BLOOD O2Hb% 91.6 % (94.0-97.0)
--- NOTE | 2016-07-01 16:30 | NUR ---
abg done on room air.
[2016-07-01 16:51] VITALS: BP 154/101; PULSE 74; RESP 17; TEMP 98; O2SAT 98
--- NOTE | 2016-07-01 18:09 | NUR ---
latest bs is 169mg/dl. refused to have coverage. stable.
--- NOTE | 2016-07-01 18:39 | NUR ---
DILAUDID 1 MG IV GIVEN. ASSISTS ON ADLS.
--- NOTE | 2016-07-01 19:26 | NUR ---
sbar report given to incoming nurse Selam PATEL
--- NOTE | 2016-07-01 19:50 | NUR ---
ROUNDS PATIENT RESTING COMFORTABLY IN BED, NOT IN DISTRESS, VITALS STABLE, NO PAIN AND DISCOMFORT AT THIS TIME. ASSESSMENT DONE AND DOCUMENTED. SEE FLOWSHEET. NEEDS ATTENDED TO. SAFETY AND FALL PRECAUTION MEASURES IN PLACED. BED IN LOW AND LOCKED POSITION. CALL LIGHT PLACED WITHIN REACH.
--- NOTE | 2016-07-01 21:10 | NUR ---
MEDICATION DUE MEDICATIONS GIVEN SCHEDULED, TOLERATED WELL. WILL CONTINUE TO MONITOR.
[2016-07-02] VITALS (8 sets, daily range): BP systolic 112–181; BP diastolic 70–110; PULSE 67–74; RESP 16–19; TEMP 97.4–98.8; O2SAT 94–99
--- NOTE | 2016-07-02 | NUR ---
NOTES PATIENT AWAKE, STABLE VITAL SIGNS, REFUSED BLOOD SUGAR CHECK AT THIS TIME SAYING SHE IS OK AND SHE DID NOT EAT MUCH. EDUCATED ON THE RISKS AND BENEFITS OF BLOOD SUGAR CHECK. WILL CONTINUE TO MONITOR.
--- NOTE | 2016-07-02 02:08 | NUR ---
ROUNDS PATIENT AWAKE, ASKING FOR JELLO AND HOT WATER FOR HER TEA. NEEDS ATTENDED TO. WILL CONTINUE TO MONITOR.
[2016-07-02] MEDS: HYDROmorphone 1 MG INJ. 1 MG/ML AMPUL IVP PRN ×5 (03:16→20:10)
[2016-07-02] MEDS: hydrALAZINE HCL 25 MG TABLET PO SCH ×3 (05:25→22:34)
--- NOTE | 2016-07-02 05:46 | NUR ---
CLOSING NOTES PATIENT AWAKE, NO MORE PAIN AT THIS TIME, ACCU CHECK DONE WITH BLOOD SUGAR OF 165 MG/DL. REFUSED INSULIN COVERAGE AT THIS TIME. EDUCATED ON THE RISKS AND BENEFITS OF THE MEDICATION BUT STILL PATIENT REFUSED. ALL NEEDS ATTENDED TO. CALL LIGHT PLACED WITH PATIENT.
--- NOTE | 2016-07-02 07:30 | NUR ---
rn notes: patient is aaox 4. afebrile vss stable. bp is 165/106. no distress noted. has iv access on the rt hand #22. saline lock dry/patent. lungs bilaterally clear. abdomen soft and non distended. call lights within reach. safety measures maintained. has rt chest willis catheter in placed dry/intact. bed in low position. informed patient to call for assistance.
[2016-07-02] MEDS: cloNIDine HCL 0.1 MG TABLET PO PRN ×2 (07:50→16:00)
--- NOTE | 2016-07-02 07:56 | NUR ---
dilaudid 1 mg iv given at this time. made comfortable at this time
--- NOTE | 2016-07-02 07:57 | NUR ---
dR Knight CAME and evalaute the patient.
[2016-07-02] MEDS: PANTOPRAZOLE SODIUM 40 MG TAB PO SCH (08:48)
[2016-07-02] MEDS: DOCUSATE SODIUM 250 MG CAPSULE PO SCH ×2 (08:48→20:09)
[2016-07-02] MEDS: NIFEDIPINE 60 MG TABLET.SA (PROCARDIA XL 60 MG) PO SCH (08:48)
[2016-07-02] MEDS: DULoxetine HCL 30 MG CAPSULE.DR (CYMBALTA) PO SCH (08:48)
[2016-07-02] MEDS: METOPROLOL SUCCINATE 50 MG TAB.SR.24H (TOPROL XL) PO SCH ×2 (08:49→20:09)
[2016-07-02] MEDS: BUMETANIDE 1 MG TABLET PO SCH ×2 (08:51→21:00)
--- NOTE | 2016-07-02 09:00 | NUR ---
due medication given as ordered. assists on adls.
--- NOTE | 2016-07-02 11:55 | NUR ---
dilaudid 1 mg iv given at this time. assists on adls.
[2016-07-02] MEDS: INSULIN REGULAR, HUMAN 100 UNITS/ML, 10 ML VIAL (novoLIN R) SUBCUT PRN ×3 (12:03→23:55)
--- NOTE | 2016-07-02 12:04 | NUR ---
latest bs is 202mg/dl. refused to have coverage at this time.
--- NOTE | 2016-07-02 12:22 | NUR ---
Nutrition F/U Admitting Diagnosis Hypertensive crisis Reviewed Pertinent Medical/Surgical Hx Patient Medical Record Medical History Comment: ESRD, HTN, CHF, type 1 DM, heart failure, cholelithiasis per MD notes Sx Hx: Fistulas Subjective Information Pt seen resting in bed at time of RD visit. Pt reports that she hasn't had much to eat while on clear liquid diet as pt stated that she tries to maintain 1.2 L fluid restriction/day as prescribed by her PCP. Per surgical progress note 07/02/16: HIDA was negative, gallbladder US sludge. Pt denied any recent BM; last one was couple of days ago per pt report. Pt denied any N/V/C/D. Per MD orders, pending colonoscopy tomorrow. Per EMR, PO Intakes: 50% x2 meals. I/O: 1800/0 (+1800 ml) per 12 hours. Current Diet Order/Nutrition Support Clear Liquid x1 day Patient/Significant Other Able To Verbalize Education Provided Not Indicated Pertinent Medications protonix, colace, bumex Pertinent Labs 07/01/16: BG 151 H, POC BG 169 H Height (Feet) 5 feet Height (Inches) 7.00 inches Weight (Pounds) 138 pounds (admission) BEDSCALE WT: 137.9 lb, 62.3 kg (07/02/16) --likely inaccurate d/t multiple linens on bed Weight (Calculated Kilograms) 62.349833 kilograms Patient Weight 62.596 kg Body Mass Index 21.61 kg/m2 Usual Weight 155 lbs %UBW 89 %IBW 102 [place]/Adjusted Body Weight IBW: 135 lb (61 kg) Recent Weight Change No - Per wt records from previous 4 visits from 01/2016-05/2016 Weight Status Appropriate Gastrointestinal Symptoms None Food Allergies No - Per records from previous visits from 01/2016-05/2016 Usual Diet At Home Renal diet Skin Integrity Comment: Per EMR, Davey scale: 19; no skin issues noted Current % PO Poor Estimated Energy Expenditure (kcals/day) 9605-1156 kcal/day (25-30 kcal/kg CBW for maintenance) Estimated Protein Required (g/day) 76-82 gm/day (1.2-1.3 gm/kg CBW for renal disease on HD) Estimated Fluid Required (l/day) Per MD for ESRD Problem/Etiology/Signs/Symptoms Inadequate nutritional intakes related to clear liquid diet as evidenced by 75% average PO intakes, pt report of poor appetite, and inadequate nutrient content of clear liquid diet per diet manual. Expected Outcomes/Goals 1. Monitor advancement of diet with goal of meeting at least 75% of estimated needs with acceptable tolerance 2. Labs trending within normal limits 3. Weight maintenance 4. Maintain skin integrity 5. Normal GI function Dietitian Recommendations * Recommend continuing clear liquid diet * Consider advance to CCHO, renal standard diet if/when medically appropriate Follow Up High Risk: F/U in 2-3 days
--- NOTE | 2016-07-02 16:00 | NUR ---
dilaudid 1 mg iv given. clonidine 0.1 mg po given bp is 161/103. other due meds. given
--- NOTE | 2016-07-02 16:13 | NUR ---
dulcolax tabs 10 mg po given with water
[2016-07-02] MEDS ORDERED: BISACODYL 5 MG TABLET.DR (DULCOLAX) PO ONE (17:00)
--- NOTE | 2016-07-02 17:30 | NUR ---
Golytely po given to the patient. instructed how to drink the medication for a procedure in am.
[2016-07-02] MEDS ORDERED: GOLYTELY / COLYTE SOLUTION 4 LITERS PO ONE (18:00)
--- NOTE | 2016-07-02 18:00 | NUR ---
latest bs is 106mg/dl. no coverage given. made comfortable.
--- NOTE | 2016-07-02 19:35 | NUR ---
sbar report given to Jack PATEL at the bedside.
--- NOTE | 2016-07-02 20:00 | NUR ---
Initial note A/O x 3, no SOB, no chest pain, c/o back pain 8/10, will give Dilaudid. Skin warm to touch, IV at R wrist, patent, free of infection or infiltration. HD catheter at R upper chest, dressing clean and dry. Clear lung sounds and active bowel sounds. No BM yet, continue drinking Golytely. Informed patient that she can drink and eat until midnight and will become NPO. Patient ate about 50% dinner and drank some Golytely. Also informed patient that the urine needed to be collected. BSC and hat at bedside. Call light within reach, will continue to monitor patient.
--- NOTE | 2016-07-02 20:20 | NUR ---
Dilaudid IVP given for back pain 11/11.
--- NOTE | 2016-07-02 22:00 | NUR ---
Rounds Resting/sleeping in bed. no SOB, no chest pain, no grimacing. Woke up patient and informed her to finish Golytely. She drank only one cup and stopped. Encouraged patient to drink more, she said she will drink little by little. No BM yet, no urine output. Patient is aware of NPO after midnight. BSC and hat at bedside. Call light within reach, will continue to monitor patient.
[2016-07-03] VITALS: BP 131/83; PULSE 68; RESP 17; TEMP 97.9; O2SAT 97
[2016-07-03] MEDS: HYDROmorphone 1 MG INJ. 1 MG/ML AMPUL IVP PRN ×5 (00:12→21:28)
--- NOTE | 2016-07-03 00:20 | NUR ---
Rounds Resting in bed, no SOB, no chest pain, c/o pain 11/11. Dilaudid 1 mg IVP given. Patient drank 6 cups (1440 ml) of Golytely and stated she can't drink more. No BM yet, no urine output. Patient is aware of NPO after midnight. BSC and hat at bedside. Call light within reach, will continue to monitor patient.
--- NOTE | 2016-07-03 02:15 | NUR ---
Rounds Resting/sleeping in bed, no SOB, no chest pain, c/o back pain 06/11. Instructed patient to urinate, but no urine output. Patient stated she will try again in one hour. No BM yet, patient is aware of tap water enema around 5 am. Patient is aware of NPO after midnight. BSC and hat at bedside. Call light within reach, will continue to monitor patient.
--- NOTE | 2016-07-03 06:20 | NUR ---
Paged Dr. Evans call manager (Dr. Sheppard) answered the call. SN informed Dr. Sheppard that patient did not have any urine output for test and did not finish Golytely, only drank about 6 cups. Tap water enema performed, some brown liquid BM, patient refused to repeat and stated it's so uncomfortable. Explained the importance of enema, patient still refused. Dr. Sheppard ordered to resume clear liquid diet and cancel colonoscopy. Cancel urine test and change to blood test.
[2016-07-03] MEDS ORDERED: MEPERIDINE HCL/PF 50 MG/ML AMP ONE ×2 (06:23→06:24)
[2016-07-03] MEDS ORDERED: MIDAZOLAM HCL 5 MG/5 ML VIAL ONE ×2 (06:24→06:25)
--- NOTE | 2016-07-03 06:33 | NUR ---
Informed GI group and dietary about the colonoscopy cancelled and resumed clear liquid diet.
[2016-07-03] MEDS: hydrALAZINE HCL 25 MG TABLET PO SCH ×3 (06:39→21:27)
[2016-07-03] MEDS: INSULIN REGULAR, HUMAN 100 UNITS/ML, 10 ML VIAL (novoLIN R) SUBCUT PRN ×2 (06:44→11:23)
--- NOTE | 2016-07-03 06:48 | NUR ---
Closing note A/O x 3, no SOB, no chest pain, still had mild pain at ABD. Patient is aware that colonoscopy was cancelled. Resumed all PO med and diet. Hydralazine was given for BP 168/104. Blood sugar was 134, no coverage. No s/s of hyper or hypoglycemia. Call light within reach, will give report to incoming nurse.
[2016-07-03] MEDS ORDERED: GOLYTELY / COLYTE SOLUTION 4 LITERS PO ONE (07:15)
[2016-07-03] MEDS ORDERED: SORBITOL 70% SOLUTION, 30 ML UDBTL PO ONE (07:15)
--- NOTE | 2016-07-03 07:48 | NUR ---
AM Rounds: Received pt sitting semi-fowlers in bed and tolerating CLD. Pt denies nausea at this time. IV intact to RUE. Call light in reach. Bed alarm on. Pt verbalizes understanding of need to call prior to ambulating. Continue to monitor.
[2016-07-03] MEDS: DULoxetine HCL 30 MG CAPSULE.DR (CYMBALTA) PO SCH (08:18)
[2016-07-03] MEDS: PANTOPRAZOLE SODIUM 40 MG TAB PO SCH (08:18)
[2016-07-03] MEDS: DOCUSATE SODIUM 250 MG CAPSULE PO SCH ×2 (08:18→21:26)
[2016-07-03 08:40] VITALS: BP 137/79; PULSE 74; RESP 16; TEMP 97.2; O2SAT 99
[2016-07-03] MEDS: NIFEDIPINE 60 MG TABLET.SA (PROCARDIA XL 60 MG) PO SCH (09:00)
[2016-07-03] MEDS: METOPROLOL SUCCINATE 50 MG TAB.SR.24H (TOPROL XL) PO SCH ×2 (09:00→21:26)
[2016-07-03] MEDS: BUMETANIDE 1 MG TABLET PO SCH ×2 (09:00→21:27)
--- NOTE | 2016-07-03 09:34 | NUR ---
RN Rounds: AM meds given per MD order. Pt also medicated for c/o pain. Pt is sleeping in bed at this time. No acute signs of distress noted at this time. IV intact to RUE with no redness or swelling noted to site. Call light in reach. Continue to monitor. Addendum: 07/03/16 at 0938 by Dang Edwards RN BP meds held pending dialysis today
--- NOTE | 2016-07-03 11:34 | NUR ---
Rounds: Blood sugar checked and no coverage given. Pt refuses sliding scale insulin coverage at this time. No acute signs of distress noted. Pt verbalizes understanding of need to finish bowel prep by 1600 this evening. Continue to monitor.
[2016-07-03 12:17] VITALS: BP 149/90; PULSE 72; RESP 17; TEMP 97.8; O2SAT 99
--- NOTE | 2016-07-03 13:39 | NUR ---
Rounds: Pt sitting semi-fowlers in bed. Pt c/o abdominal pain, medicated per MD order. Reinforced to patient the need to finish golytely by 1600. Pt verbalizes understanding and states "not right now, my stomach hurts". Will continue to monitor pt closely.
--- NOTE | 2016-07-03 15:18 | NUR ---
Rounds: Pt sitting semi-fowlers in bed with dialysis in progress. Dialysis nurse at bedside. Call light in reach. Continue to monitor.
[2016-07-03 15:59] VITALS: BP 183/99; PULSE 71; RESP 16; TEMP 97.9; O2SAT 98
[2016-07-03] MEDS ORDERED: HEPARIN SODIUM,PORCINE 5000 UNITS/ML VIAL IVP ONE ×2 (16:45)
[2016-07-03] MEDS: BISACODYL 5 MG TABLET.DR (DULCOLAX) PO ONE ×2 (16:50→16:53)
--- NOTE | 2016-07-03 16:54 | NUR ---
Page Dr. Iasacs: Page Dr. Isaacs to inform him that patient is refusing colonoscopy tomorrow. Awaiting page back at this time.
--- NOTE | 2016-07-03 16:55 | NUR ---
CALLED GI MD DR EPSTEIN, RE: TO INFORM HIM THAT PT REFUSES TO HAVE COLONOSCOPY TOMORROW. SPOKE TO SHEY
--- NOTE | 2016-07-03 17:52 | NUR ---
PUT ANOTHER F/U CALL TO DR EPSTEIN. SPOKE TO SHAYNA, 2ND CALL
--- NOTE | 2016-07-03 18:06 | NUR ---
Dr. Isaacs Page Back: Dr. Isaacs paged back, he is aware that patient is refusing colonoscopy for tomorrow, continue clear liquid diet. [employer] Heidi also made aware that colonoscopy will be cancelled tomorrow.
--- NOTE | 2016-07-03 18:23 | NUR ---
Closing Note: Pt sitting semi-fowlers in bed. No acute signs of distress noted. IV intact to RUE with no redness or swelling noted to site. Call light in reach. Pt is able to make needs known. No other needs noted. Endorse plan of care to NOC RN.
[2016-07-03] MEDS: cloNIDine HCL 0.1 MG TABLET PO PRN (18:58)
[2016-07-03 20:25] VITALS: BP 188/118; PULSE 94; RESP 18; TEMP 98.9
--- NOTE | 2016-07-03 21:33 | NUR ---
Pain c/o abdominal pain rated 7/10 describded as aching/throbbing pain. Dilaudid IV given as ordered.
--- NOTE | 2016-07-03 21:33 | NUR ---
Medications Due medications given as ordered. BP 188/118. Due bp meds given as ordered.
--- NOTE | 2016-07-04 | NUR ---
blood sugar fingerstick checked = 201 mg/dL. no s/s of hypo/hyperglycemia. refused insulin coverage citing clear liquid diet.
--- NOTE | 2016-07-04 | NUR ---
blood pressure bp 175/107, hr 72. denies headache. clonidine 0.1 mg po administered.
[2016-07-04] MEDS: cloNIDine HCL 0.1 MG TABLET PO PRN ×2 (00:01→06:11)
[2016-07-04 00:39] VITALS: BP 175/107; PULSE 72; RESP 18; TEMP 99.2; O2SAT 99
[2016-07-04] MEDS: HYDROmorphone 1 MG INJ. 1 MG/ML AMPUL IVP PRN ×4 (01:55→14:12)
--- NOTE | 2016-07-04 02:00 | NUR ---
Blood pressure BP rechecked = 165/102, hr 72. No c/o headache. exhibit designer aware.
--- NOTE | 2016-07-04 02:00 | NUR ---
Pain c/o abdominal pain rated 8/10 described as aching/throbbing pain. Dilaudid IV given as ordered.
--- NOTE | 2016-07-04 03:11 | NUR ---
Rounds Sleeping quietly, no apparent distress. No c/o pain or discomfort. Call light within reach. Bed alarm on.
[2016-07-04 05:45] VITALS: BP 104/71; PULSE 60; RESP 20; TEMP 98.6; O2SAT 93
--- NOTE | 2016-07-04 06:07 | NUR ---
pain c/o abdominal pain rated 8/10 described as aching/throbbing pain. Dilaudid iv given as ordered.
[2016-07-04] MEDS: hydrALAZINE HCL 25 MG TABLET PO SCH ×2 (06:09→14:08)
--- NOTE | 2016-07-04 06:10 | NUR ---
blood sugar fingerstick checked = 169 mg/dL. No s/s of hypo/hyperglycemia. Refused coverage citing clear liquid diet.
--- NOTE | 2016-07-04 06:10 | NUR ---
blood pressure bp ucbfzkk=905/116, hr 74. no c/o headache. scheduled apresoline po and clonidine 0.1 mg po prn administered.
[2016-07-04 07:07] LABS: BASOPHILS % (AUTO) 0.4 % (0.0-2.0); EOSINOPHILS # (AUTO) 0.2 K/uL (0.0-0.4); EOSINOPHILS % (AUTO) 3.9 % (0.0-4.0); HEMATOCRIT 32.3 % (36-48); HEMOGLOBIN 11.2 g/dL (12.0-16.0); LYMPHOCYTES # (AUTO) 1.9 K/uL (1.0-5.5); LYMPHOCYTES % (AUTO) 34.4 % (20.5-51.5); MEAN CORPUSCULAR HEMOGLOBIN 30 pg (27-31); MEAN CORPUSCULAR HGB CONC 35 % (32-36); MEAN CORPUSCULAR VOLUME 85 fL (79.0-98.0); MONOCYTES # (AUTO) 0.4 K/uL (0.0-1.0); MONOCYTES % (AUTO) 7.3 % (1.7-9.3); PLATELET COUNT (AUTO) 208 K/uL (130-430); RED BLOOD CELL COUNT(AUTO) 3.79 MIL/uL (4.2-6.2); RED CELL DISTRIBUTION WIDTH 13.2 % (9.0-15.0); WHITE BLOOD COUNT (AUTO) 5.5 K/uL (4.8-10.8)
--- NOTE | 2016-07-04 07:15 | NUR ---
Closing note Resting in bed, no c/o pain or discomfort. BP rechecked = 163/104, hr 70. No c/o headache. Endorsed care to AMANDA Zurita via SBAR method.
[2016-07-04 07:21] LABS: CALCIUM 8.6 mg/dL (8.4-11.0); CREATININE 2.91 mg/dL (0.55-1.30); POTASSIUM 3.8 mmol/L (3.5-5.1)
[2016-07-04 07:51] VITALS: BP 163/104; PULSE 70; RESP 20; TEMP 97.4; O2SAT 97
--- NOTE | 2016-07-04 08:00 | NUR ---
NOTE PT RESTING IN BED. NO SOB/RESP DISTRESS OR PAIN/DISCOMFORT WAS NOTED. IV IN RIGHT HAND INTACT AND PATENT AT THIS TIME. CALL LIGHT WITHIN REACH.
[2016-07-04] MEDS: BUMETANIDE 1 MG TABLET PO SCH (08:37)
[2016-07-04] MEDS: DULoxetine HCL 30 MG CAPSULE.DR (CYMBALTA) PO SCH (08:38)
[2016-07-04] MEDS: PANTOPRAZOLE SODIUM 40 MG TAB PO SCH (08:38)
[2016-07-04] MEDS: DOCUSATE SODIUM 250 MG CAPSULE PO SCH (08:38)
[2016-07-04] MEDS: METOPROLOL SUCCINATE 50 MG TAB.SR.24H (TOPROL XL) PO SCH (08:38)
[2016-07-04] MEDS: NIFEDIPINE 60 MG TABLET.SA (PROCARDIA XL 60 MG) PO SCH (08:39)
--- NOTE | 2016-07-04 11:00 | NUR ---
NOTE DR LOWE ON THE FLOOR AND ASSESSMENT WAS COMPLETED AT THIS TIME. QUESTIONS/CONCERNS WERE ANSWERED AT THIS TIME. PT GIVEN VERBAL DISCHARGE INSTRUCTIONS BY DR LOWE. NO NEEDS NOTED. PAIN TOLERABLE AT THIS TIME. CALL LIGHT WITHIN REACH.
[2016-07-04] MEDS: INSULIN REGULAR, HUMAN 100 UNITS/ML, 10 ML VIAL (novoLIN R) SUBCUT PRN (11:51)
[2016-07-04 12:09] VITALS: BP 187/113; PULSE 70; RESP 16; TEMP 98.4; O2SAT 98
[2016-07-04 12:37] VITALS: O2SAT 97
--- NOTE | 2016-07-04 15:00 | NUR ---
NOTE PT'S RIGHT HAND IV WAS DC'D, CATH INTACT. NO SWELLING/REDNESS/BLEEDING/DRAINAGE OR TENDERNESS NOTED AT THIS TIME. PT WAS GIVEN DISCHARGE INSTRUCTIONS, QUESTIONS/CONCERNS WERE ANSWERED AT THIS TIME. PT DRESSED IN STREET CLOTHES AND PT PACKED ALL HER BELONGINGS. PT CHECKED SIDE TABLE AND DRAWERS FOR BELONGINGS. PT OFF THE FLOOR VIA WHEELCHAIR TO CAR. PT STABLE. NO SOB/RESP DISTRESS OR PAIN/DISCOMFORT NOTED AT THIS TIME.
== END 2016-07-04 15:00 | disposition home or self-care (01) | DRG 391 ==
LOC: SED 11:45 → STU 15:40 → SMU 06-30 13:16
PROVIDERS: ADMIT Internal Medicine Hospice and Palliative Medicine; ATTEND Internal Medicine Hospice and Palliative Medicine
PROC: 5A1D60Z (ICD-10-PCS; principal; 2016-07-01)
DX: K52.89 Other specified noninfective gastroenteritis and colitis (principal); N18.6 End stage renal disease; I13.2 Hypertensive heart and chronic kidney disease with heart failure and with stage 5 chronic kidney disease, or end stage renal disease; E44.1 Mild protein-calorie malnutrition; I16.9 Hypertensive crisis, unspecified; K80.20 Calculus of gallbladder without cholecystitis without obstruction; I50.9 Heart failure, unspecified; N25.0 Renal osteodystrophy; K59.00 Constipation, unspecified; D63.1 Anemia in chronic kidney disease; G89.29 Other chronic pain; E10.22 Type 1 diabetes mellitus with diabetic chronic kidney disease; E10.319 Type 1 diabetes mellitus with unspecified diabetic retinopathy without macular edema; Z99.2 Dependence on renal dialysis; Z79.4 Long term (current) use of insulin; Z93.0 Tracheostomy status; Z93.1 Gastrostomy status; Z88.8 Allergy status to other drugs, medicaments and biological substances; Z88.6 Allergy status to analgesic agent; Z91.040 Latex allergy status; Z68.21 Body mass index [BMI] 21.0-21.9, adult; Z79.899 Other long term (current) drug therapy
CPT/HCPCS: 36415; 36600; 71010; 76700-TC; 78226; 80048; 80053; 81000-TC; 82803-TC; 82962; 83690-TC; 83880; 84100-TC; 84484; 84703; 85025; 85610-TC; 85730-TC; 87081; 90935; 90937; 93005; 96374; 96375; 96376; 99285; A9537; J0360; J1170; J1644; J1815; J2175; J2250; J2405; J3490; J7030

== ENCOUNTER 2016-07-29 06:40 | Inpatient (IN) | payer OTHER ==
[~2016-07-29] VITALS: Ht 170.2 cm; Wt 59.9 kg
--- NOTE | 2016-07-29 05:17 | NUR ---
initial nursing notes: Patient awake in bed. Patient has a left hand IV access. Patient has a right chest wall Charli cath for dialysis. Patient denies of having pain. Addendum: 07/30/16 at 520 by Marvel Rey RN Wrong time. Should be for: 1914 on 07/30/16 Addendum: 07/30/16 at 521 by Marvel Rey RN Wrong time. Should be for: 1914 on 07/29/16
[~2016-07-29 06:40] MED LIST changes: +CYM30 PO; +PRO40 PO
[2016-07-29 06:56] VITALS: BP 213/137; PULSE 107; PULSE 117; RESP 24; TEMP 99.4; O2SAT 100
--- NOTE | 2016-07-29 06:56 | NUR ---
Patient to ER bed 6 for evaluation. Side rails up.
--- NOTE | 2016-07-29 07:00 | NUR ---
ER at bedside examining patient.
[2016-07-29] MEDS ORDERED: ONDANSETRON HCL 4 MG/2 ML VIAL IVP ONE (07:15)
[2016-07-29] MEDS ORDERED: HYDROmorphone 1 MG INJ. 1 MG/ML AMPUL IVP ONE ×2 (07:15→08:45)
[2016-07-29] MEDS ORDERED: DIPHENHYDRAMINE INJ 50 MG/ML VIAL IVP ONE (07:15)
[2016-07-29] MEDS ORDERED: hydrALAZINE HCL 20 MG/ML VIAL IVP ONE ×2 (07:30→08:45)
--- NOTE | 2016-07-29 07:35 | NUR ---
C/O RLQ RADIATES TO RIGHT FLANK SHARP 10/10 WITH PAIN WITH URINATION/N/V SINCE LAST NIGHT AT 9PM. PT HYPERTENSIVE ON ARRIVAL STATING SHE IS SUPPOSE TO BE AT DIALYSIS THIS AM BUT DUE TO PAIN/N/V SHE WAS UNABLE TO GO. MELIZA CATH TO CHEST LAST DIALYSIS TUESDAY. STATES DIAGNOSED WITH DM AT AGE 8 AND WENT ON DIALYSIS SHORTLY AFTER HER 5 YEARS AGO. PT LIVES WITH /DAUGHTER/AUNT. STATES SHE IS UNABLE TO GET A HOLD OF PMD WHO IS NOT RETURNING HER CALLS SO SHE HAS HAD NO F/U SINCE LAST ADMISSION IN JUNE.
[2016-07-29 07:53] LABS: BASOPHILS # (AUTO) 0.1 K/uL (0.0-0.2); BASOPHILS % (AUTO) 0.8 % (0.0-2.0); EOSINOPHILS # (AUTO) 0.1 K/uL (0.0-0.4); EOSINOPHILS % (AUTO) 1.2 % (0.0-4.0); HEMATOCRIT 30.1 % (36-48); LYMPHOCYTES # (AUTO) 1.5 K/uL (1.0-5.5); LYMPHOCYTES % (AUTO) 13.2 % (20.5-51.5); MEAN CORPUSCULAR HEMOGLOBIN 30 pg (27-31); MEAN CORPUSCULAR HGB CONC 33 % (32-36); MEAN CORPUSCULAR VOLUME 92 fL (79.0-98.0); MONOCYTES # (AUTO) 0.4 K/uL (0.0-1.0); MONOCYTES % (AUTO) 3.9 % (1.7-9.3); NEUTROPHILS % (AUTO) 80.9 % (40.0-70.0); PLATELET COUNT (AUTO) 222 K/uL (130-430); RED CELL DISTRIBUTION WIDTH 15.4 % (9.0-15.0); WHITE BLOOD COUNT (AUTO) 11.1 K/uL (4.8-10.8)
[2016-07-29 08:04] LABS: CREATININE 4.51 mg/dL (0.55-1.30); POTASSIUM 4.7 mmol/L (3.5-5.1)
[2016-07-29 08:09] LABS: ALBUMIN 3.3 g/dL (3.4-4.8); TOTAL BILIRUBIN 0.5 mg/dL (0.0-1.0); TOTAL PROTEIN, SERUM 6.9 g/dL (6.4-8.3)
[2016-07-29 08:10] LABS: BILIRUBIN,URINE NEGATIVE (NEGATIVE); BLOOD, URINE 2+ (NEGATIVE); CLARITY/URINE CLOUDY (CLEAR); COLOR,URINE YELLOW (YELLOW); GLUCOSE,URINE 2+ (NEGATIVE); KETONES,URINE NEGATIVE (NEGATIVE); LEUKOCYTE ESTERASE ,URINE 1+ (NEGATIVE); NITRITE, URINE NEGATIVE (NEGATIVE); PROTEIN URINE 3+ (NEGATIVE); UROBILINOGEN,URINE 0.2 (0.2-1.0)
[2016-07-29 08:22] LABS: BACTERIA,URINE FEW /HPF (None Seen); WBC,URINE >100 /HPF (0-3)
--- NOTE | 2016-07-29 08:25 | NUR ---
Ultrasound at bedside
--- NOTE | 2016-07-29 08:38 | NUR ---
VS updated Dr. Paz informed of BP and pain 08/11 and request for additional pain management.
[2016-07-29] MEDS: cloNIDine HCL 0.1 MG/24 HR PATCH.TDWK TD SCH (09:00)
[2016-07-29] MEDS: cefTRIAXone 1 GM in D5W 50 ML IV SCH (09:00)
[2016-07-29] MEDS ORDERED: CIPROFLOXACIN LACT 400 MG/D5W 200 ML IV SCH (09:00)
--- NOTE | 2016-07-29 09:14 | NUR ---
Patient will be admitted to care of Dr. Alejandro. Admitted to Tele unit. Will go to room 120A. Belongings list completed. Summary report printed.
--- NOTE | 2016-07-29 09:18 | NUR ---
DR. CHAMORRO AT BEDSIDE
[2016-07-29] MEDS ORDERED: MORPHINE 2 MG/ML INJ. SYRINGE IVP PRN (09:30)
[2016-07-29] MEDS ORDERED: ACETAMINOPHEN 325 MG TABLET PO PRN (09:30)
[2016-07-29] MEDS ORDERED: POTASSIUM CHLORIDE 10 MEQ TAB.PRT.SR PO PRN (09:30)
[2016-07-29] MEDS ORDERED: ZOLPIDEM TARTRATE 5 MG TABLET PO PRN (09:30)
[2016-07-29] MEDS ORDERED: MAGNESIUM SULFATE 50 ML IV PRN (09:30)
[2016-07-29] MEDS ORDERED: DOCUSATE SODIUM 100 MG CAPSULE PO PRN (09:30)
[2016-07-29] MEDS ORDERED: DEXTROSE 50% JECT 50 ML DISP.SYRIN IVP PRN (09:30)
--- NOTE | 2016-07-29 09:45 | NUR ---
Transfer to 120A via ACLS protocol. Licensed nurse present. IV present no signs or symptoms of infiltration. walker and all belonings taken to room 102A and patient verbilized understanding and agreed all belonging were accounted for. Delay in transport to 102A due to patient throwing up and Dr. Girard at bedside
--- NOTE | 2016-07-29 09:57 | NUR ---
ADMISSION NOTE Received patient from ER via gurney. Patient admitted with diagnosis of Right Pyelonephritis. Patient is awake, alert, oriented X 3. Patient oriented to hospital room, call light, toileting, pain management and safety-teach back done. Patient informed that Eleazar will be her nurse and that their room number is 120 A. Personal belongings checked and Belongings List documented. Call light within reach.
[2016-07-29 09:59] VITALS: BP 170/105; PULSE 118; RESP 18; TEMP 98.4; O2SAT 96
--- NOTE | 2016-07-29 10:23 | NUR ---
CONSULT NEPHROLOGY RIGHT PYELONEPHRITIS DR JACKELINE GUERRERO [phone] DR FULLER PURCHASING ADMINISTRATOR S/W [facility] OFFICE @ [id number]
[2016-07-29 11:57] VITALS: BP 176/110; PULSE 102; RESP 17; TEMP 97.9; O2SAT 97
[2016-07-29] MEDS: INSULIN ASPART 100 UNITS/ML, 10 ML VIAL (NovoLOG) SUBCUT PRN (12:41)
--- NOTE | 2016-07-29 12:45 | NUR ---
RN INITIAL ASSESSMENT PATIENT WAS ASSESSED, SHE IS ALERT ORIENTED X 4. PATIENT COMPLAINED OF PAIN IN THE RIGHT FLANK OF 8 ON 0/10 SCALE, PATIENT WAS GIVEN HER PAIN MED I.M AND THE PAIN WAS RELIEVED. WILL CONTINUE TO FOLLOW UP . HER BLOOD SUGAR WAS 240 AND WAS COVERED FOR THAT WITH THE PRESCRIBED INSULIN. WILL CONTINUE TO FOLLOW UP
[2016-07-29] MEDS: HYDROmorphone 1 MG INJ. 1 MG/ML AMPUL IM PRN ×2 (12:52→18:02)
[2016-07-29] MEDS: METOCLOPRAMIDE HCL 10 MG/2 ML VIAL IVP PRN (12:53)
[2016-07-29 14:18] VITALS: BP 145/104; PULSE 102
[2016-07-29] MEDS: hydrALAZINE HCL 25 MG TABLET PO SCH ×3 (14:22→23:17)
[2016-07-29 14:35] LABS: BARBITURATE, URINE NEGATIVE (NEG <=200); BENZODIAZEPINE, URINE NEGATIVE (NEG <=150); CANNABINOID, URINE NEGATIVE (NEG <=50); COCAINE, URINE NEGATIVE (NEG <=150); METHAMPHETAMINES SCREEN,URINE NEGATIVE (NEG <=500); OPIATE, URINE POSITIVE (NEG <=100); PHENCYCLIDINE SCREEN,URINE NEGATIVE (NEG <=25); UR TRICYCLIC ANTIDEPRESSANTS NEGATIVE (NEG <=300); URINE AMPHETAMINE NEGATIVE (NEG <=500); URINE METHADONE NEGATIVE (NEG <=200); URINE OXYCODONE SCREEN NEGATIVE (NEG <=100); URINE PROPOXYPHENE SCREEN NEGATIVE (NEG <=300)
--- NOTE | 2016-07-29 15:00 | NUR ---
RN ROUNDS PATIENT LYING ON BED, HAS NO APPETITE. HER NAUSEA IS GONE AWAY AFTER GIVEN REGLAN IV., BUT SHE STILL DOESN'T LIKE TO EAT HER MEAL. . NO FEVER, AND HER BLOOD PRESSURE IS NORMALIZING WILL CONTINUE TO FOLLOW UP
[2016-07-29 16:45] VITALS: BP 169/99; PULSE 109; RESP 17; TEMP 98; O2SAT 97
--- NOTE | 2016-07-29 18:00 | NUR ---
RN ROUNDS PATIENT HAS A RIGHT FLANK PAIN, OF 8/10 MAGNITUDE ON 0/10 SCALE, PATIENT WAS GIVEN HER DILAUDID I.M AND WHEN WAS ASSESSED, SHE IS PAIN FREE. SHE ALSO DIDN'T FEEL APPETITE TO EAT HER DINNER, HER BLOOD SUGAR WAS 104, SHE WAS NOT COVERED WITH INSULIN, BUT SHE IS ALERT, HAS NO COMPLAINTS AT THIS TIME WILL FOLLOW UP
--- NOTE | 2016-07-29 19:15 | NUR ---
initial nursing notes: Patient awake in bed. Patient has a left hand IV access. Patient has a right chest wall Charli cath for dialysis. Patient denies of having pain.
[2016-07-29 19:55] VITALS: BP 153/109; PULSE 98; RESP 18; TEMP 98.9; O2SAT 93
[2016-07-29] MEDS: BUMETANIDE 1 MG TABLET PO SCH (21:00)
[2016-07-29] MEDS: METOPROLOL SUCCINATE 50 MG TAB.SR.24H (TOPROL XL) PO SCH ×2 (21:00→23:18)
[2016-07-29] MEDS: HEPARIN SODIUM,PORCINE 5000 UNITS/ML VIAL SUBCUT SCH (21:00)
[2016-07-29] MEDS: DOCUSATE SODIUM 250 MG CAPSULE PO SCH (21:00)
--- NOTE | 2016-07-29 21:15 | NUR ---
nursing rounds: Patient is currently having dialysis. Medications are being held. Will check patient's blood sugar.
[2016-07-29] MEDS ORDERED: HEPARIN SODIUM, PORCINE 10,000 UNITS/ 10 ML VIAL ONE (21:33)
--- NOTE | 2016-07-29 23:15 | NUR ---
nursing rounds: Patient will be receiving medications for elevated blood pressure, as well as medication for abdominal pain.
[2016-07-29] MEDS: cloNIDine HCL 0.1 MG TABLET PO PRN (23:18)
[2016-07-29] MEDS: HYDROmorphone 1 MG INJ. 1 MG/ML AMPUL IVP PRN (23:22)
[2016-07-30 00:32] VITALS: BP 189/118; PULSE 89; RESP 20; TEMP 98.9; O2SAT 97
--- NOTE | 2016-07-30 01:15 | NUR ---
nursing rounds: Patient's blood pressure is slowly stabilizing BP= 149/86 mmHg. Patient also stated that the pain medication was effective.
--- NOTE | 2016-07-30 03:15 | NUR ---
nursing rounds: Patient asleep in bed. Patient has no shortness of breath.
[2016-07-30] MEDS: HYDROmorphone 1 MG INJ. 1 MG/ML AMPUL IVP PRN ×6 (03:56→21:18)
[2016-07-30 04:00] VITALS: BP 121/78; PULSE 83; RESP 18; TEMP 98.5; O2SAT 95
--- NOTE | 2016-07-30 05:15 | NUR ---
nursing rounds: Patient calmly resting in bed. Call light within patient's reach. Patient's vital signs are stable. BP= 121/78 mmHg, P= 83 bpm.
[2016-07-30] MEDS: INSULIN ASPART 100 UNITS/ML, 10 ML VIAL (NovoLOG) SUBCUT PRN ×3 (06:22→21:34)
[2016-07-30 07:08] LABS: BASOPHILS % (AUTO) 0.4 % (0.0-2.0); EOSINOPHILS # (AUTO) 0.2 K/uL (0.0-0.4); EOSINOPHILS % (AUTO) 1.9 % (0.0-4.0); HEMATOCRIT 28.9 % (36-48); HEMOGLOBIN 9.5 g/dL (12.0-16.0); LYMPHOCYTES # (AUTO) 1.6 K/uL (1.0-5.5); LYMPHOCYTES % (AUTO) 17.6 % (20.5-51.5); MEAN CORPUSCULAR HEMOGLOBIN 31 pg (27-31); MEAN CORPUSCULAR HGB CONC 33 % (32-36); MEAN CORPUSCULAR VOLUME 92 fL (79.0-98.0); MONOCYTES # (AUTO) 0.6 K/uL (0.0-1.0); MONOCYTES % (AUTO) 6.2 % (1.7-9.3); NEUTROPHILS # (AUTO) 6.7 K/uL (1.8-7.7); NEUTROPHILS % (AUTO) 73.9 % (40.0-70.0); PLATELET COUNT (AUTO) 237 K/uL (130-430); RED BLOOD CELL COUNT(AUTO) 3.12 MIL/uL (4.2-6.2); RED CELL DISTRIBUTION WIDTH 15.4 % (9.0-15.0); WHITE BLOOD COUNT (AUTO) 9.1 K/uL (4.8-10.8)
--- NOTE | 2016-07-30 07:29 | NUR ---
ROUNDS TO PATIENT WITH NOC NURSE. PATIENT REQUEST FOR PAIN MED. DIALYSIS EARLY AM, 1.3 L OUTPUT.
--- NOTE | 2016-07-30 07:35 | NUR ---
closing nursing notes: Patient is awake, alert and oriented X 4. Patient is in no acute respiratory distress. No episodes of fall and no injuries throughout the assistant casino shift manager. Provided nursing report to incoming morning shift nurse, AMANDA Lynch, at patient's bedside.
[2016-07-30 07:38] LABS: CALCIUM 8.6 mg/dL (8.4-11.0); CREATININE 3.08 mg/dL (0.55-1.30); POTASSIUM 4.3 mmol/L (3.5-5.1)
[2016-07-30 07:40] VITALS: BP 136/78; PULSE 78; RESP 22; TEMP 98.4; O2SAT 96
[2016-07-30] MEDS: BUMETANIDE 1 MG TABLET PO SCH (09:00)
[2016-07-30] MEDS: HEPARIN SODIUM,PORCINE 5000 UNITS/ML VIAL SUBCUT SCH ×3 (09:00→21:19)
[2016-07-30] MEDS: DOCUSATE SODIUM 250 MG CAPSULE PO SCH ×2 (09:27→21:17)
[2016-07-30] MEDS: NIFEDIPINE 60 MG TABLET.SA (PROCARDIA XL 60 MG) PO SCH (09:27)
[2016-07-30] MEDS: cefTRIAXone 1 GM in D5W 50 ML IV SCH (09:27)
--- NOTE | 2016-07-30 10:45 | NUR ---
Rounds to patient. Frequent reposition noted. Pain 5/10. IV antibiotic check. Insfusion in progress.
[2016-07-30 11:22] VITALS: BP 136/85; PULSE 117; RESP 16; TEMP 99.4; O2SAT 96
--- NOTE | 2016-07-30 12:25 | NUR ---
PAIN IN RIGHT LOWER ABDOMEN AT THIS TIME. SAYS 10/11. GIVEN PRN PAIN MED REQUESTED.
--- NOTE | 2016-07-30 14:43 | NUR ---
Rounds to patient. Sleeping at this time.
[2016-07-30] MEDS: hydrALAZINE HCL 25 MG TABLET PO SCH ×2 (15:32→21:17)
--- NOTE | 2016-07-30 15:40 | NUR ---
Call for sandwich. Given student instruction to get sandwich for patient. Admin of apresoline and bp 115/75.
[2016-07-30 16:12] VITALS: BP 115/75; PULSE 75; RESP 20; TEMP 98.1; O2SAT 95
--- NOTE | 2016-07-30 16:48 | NUR ---
Patient refusal of accucheck at 11 am and also heparin 9 am. Will attempt accucheck this pm.
--- NOTE | 2016-07-30 17:20 | NUR ---
Accucheck 285mg/dL. Given novolog 6 units subcutaneous. Patient pain 7/10 in abdomen and given prn dilauded as requested. Will pass dinner tray this pm.
--- NOTE | 2016-07-30 18:26 | NUR ---
ROUNDS TO PLACE RED LEAD FOR DIETETICS TEACHER REQUESTED BY MONITOR LOAN DOCUMENTS CLOSER.
[2016-07-30 20:04] VITALS: BP 117/74; PULSE 74; RESP 20; TEMP 98.2; O2SAT 96
[2016-07-30] MEDS: METOPROLOL SUCCINATE 50 MG TAB.SR.24H (TOPROL XL) PO SCH (21:17)
--- NOTE | 2016-07-30 21:25 | NUR ---
DILAUDID 1 MG IVP administer for General pain 7/10 comfort measures helpful .
--- NOTE | 2016-07-30 22:05 | NUR ---
New orders , spoke with DR RAPP ORDERS for HDX this AM 07/31/16 , telemarketing supervisor updated .
[2016-07-31] VITALS: BP 101/63; PULSE 81; RESP 18; TEMP 97.8; O2SAT 95
--- NOTE | 2016-07-31 | NUR ---
Phoned paged DR CHAMORRO regarding aches & Pains patient wanting to increase medication dose .
--- NOTE | 2016-07-31 00:20 | NUR ---
PAGED: PT STATED THAT DILAUDID 1 MG IS NOT HELPING HER AND SHE IS IN SEVERE PAIN , PAGED AND TALKED WITH HIM , MD ORDERED TO GIVE DILAUDID 2 MG IVP Q4 HRS PRN FOR SEVERE PAIN .RECEIVED REPORT FROM AMANDA .
--- NOTE | 2016-07-31 00:26 | NUR ---
Patient awake this hour assist with ADL , encourage position change patient is ambulatory call alexander with patient .
[2016-07-31] MEDS ORDERED: HYDROmorphone 1 MG INJ. 1 MG/ML AMPUL IVP PRN (00:30)
[2016-07-31] MEDS: BUMETANIDE 1 MG TABLET PO SCH ×3 (00:38→21:09)
[2016-07-31] MEDS: HYDROmorphone 2 MG/ML VIAL IVP PRN ×6 (01:05→21:09)
--- NOTE | 2016-07-31 01:05 | NUR ---
PAIN: PT C/O 9/10 PAIN ON HER R LOWER ABDOMEN AND RADIATING TO HER BACK . MEDICATED WITH DILAUDID 2 MG PER ORDER .
--- NOTE | 2016-07-31 01:57 | NUR ---
RN NOTES: PT IS SLEEPING , NOT IN ANY ACUTE DISTRESS;WILL CONTINUE TO MONITOR.
--- NOTE | 2016-07-31 03:59 | NUR ---
RN ROUNDS: PT IS SLEEPING , NOT IN ANY ACUTE DISTRESS; WILL CONTINUE TO MONITOR
[2016-07-31 04:00] VITALS: BP 108/66; PULSE 77; RESP 18; TEMP 97.8; O2SAT 95
[2016-07-31] MEDS: hydrALAZINE HCL 25 MG TABLET PO SCH ×3 (05:13→21:02)
--- NOTE | 2016-07-31 05:15 | NUR ---
PAIN: PT C/O 12/12 PAIN ON HER R LOWER ABDOMEN AND RADIATING TO HER BACK . MEDICATED WITH DILAUDID 2 MG PER ORDER . Addendum: 07/31/16 at 0640 by Michelle Estevez RN PAIN LEVEL IS 8/ 10
[2016-07-31] MEDS: INSULIN ASPART 100 UNITS/ML, 10 ML VIAL (NovoLOG) SUBCUT PRN ×3 (06:08→21:55)
[2016-07-31 06:30] LABS: BASOPHILS % (AUTO) 0.2 % (0.0-2.0); EOSINOPHILS # (AUTO) 0.2 K/uL (0.0-0.4); EOSINOPHILS % (AUTO) 3.1 % (0.0-4.0); HEMATOCRIT 30.6 % (36-48); HEMOGLOBIN 9.9 g/dL (12.0-16.0); LYMPHOCYTES # (AUTO) 1.8 K/uL (1.0-5.5); LYMPHOCYTES % (AUTO) 22.2 % (20.5-51.5); MEAN CORPUSCULAR HEMOGLOBIN 30 pg (27-31); MEAN CORPUSCULAR HGB CONC 32 % (32-36); MEAN CORPUSCULAR VOLUME 93 fL (79.0-98.0); MONOCYTES # (AUTO) 0.5 K/uL (0.0-1.0); MONOCYTES % (AUTO) 6.8 % (1.7-9.3); NEUTROPHILS # (AUTO) 5.5 K/uL (1.8-7.7); NEUTROPHILS % (AUTO) 67.7 % (40.0-70.0); PLATELET COUNT (AUTO) 239 K/uL (130-430); RED BLOOD CELL COUNT(AUTO) 3.29 MIL/uL (4.2-6.2); RED CELL DISTRIBUTION WIDTH 15.2 % (9.0-15.0)
[2016-07-31 06:41] LABS: CALCIUM 8.4 mg/dL (8.4-11.0); CREATININE 4.88 mg/dL (0.55-1.30); POTASSIUM 4.9 mmol/L (3.5-5.1)
--- NOTE | 2016-07-31 06:46 | NUR ---
CLOSING NOTES: PT IS SLEEPING , NOT IN ANY ACUTE DISTRESS ; VITALS ARE STABLE ;PAIN IS TOLERABLE PER PT ; NO SIGNIFICANT CHANGES IN THE CONDITION .BS 265 , 6 UNITS OF NOVOLOG GIVEN PER ORDER . WILL CONTINUE TO MONITOR AND WILL ENDORSE TO NEXT SHIFT NURSE .
[2016-07-31 07:55] VITALS: BP 143/86; PULSE 79; RESP 16; TEMP 97.2; O2SAT 100
--- NOTE | 2016-07-31 07:55 | NUR ---
INITIAL ROUNDS Received pt AAOx4, no s/s resp distress, c/o right flank pain 08/11-will check on pain medications. Pt sitting up in bed feeding herself breakfast. Plan of care for the day reviewed with pt-pt verbalized her understanding. Noted Perma-cath to right upper chest with dressing clean, dry & intact. Pain management, disease process, skin and safety discussed-teach back done. Contact phone number explained, call light within reach.
[2016-07-31] MEDS: NIFEDIPINE 60 MG TABLET.SA (PROCARDIA XL 60 MG) PO SCH (09:00)
[2016-07-31] MEDS: HEPARIN SODIUM,PORCINE 5000 UNITS/ML VIAL SUBCUT SCH ×2 (09:00→21:00)
[2016-07-31] MEDS: METOPROLOL SUCCINATE 50 MG TAB.SR.24H (TOPROL XL) PO SCH ×2 (09:00→21:03)
[2016-07-31] MEDS: cefTRIAXone 1 GM in D5W 50 ML IV SCH (09:35)
[2016-07-31] MEDS: DOCUSATE SODIUM 250 MG CAPSULE PO SCH ×2 (09:35→21:00)
--- NOTE | 2016-07-31 10:25 | NUR ---
ROUNDS Pt sitting up in bed receiving dialysis. No c/o pain or discomfort. Needs met, call light within reach.
[2016-07-31 12:00] VITALS: BP 133/83; PULSE 77; RESP 17; TEMP 97.8; O2SAT 98
--- NOTE | 2016-07-31 12:08 | NUR ---
ROUNDS Pt resting quietly in bed with no s/s resp distress, no s/s pain or discomfort. Pt receiving dialysis. No changes. Call light within reach.
--- NOTE | 2016-07-31 13:30 | NUR ---
HD COMPLETED Received report from HD nurse, pt had 3L out. Pt c/o right flank pain-given pain medication as ordered. Pt made comfortable. Call light within reach.
[2016-07-31 14:08] LABS: HEPATITIS A AB, IgM Negative (Negative); HEPATITIS B CORE AB, IgM Negative (Negative); HEPATITIS B SURFACE AG Negative (Negative)
--- NOTE | 2016-07-31 15:29 | NUR ---
BP Pt just woke up from a nap-BP checked Elevated 143/102-pt given Apresoline as ordered. Pt made comfortable. Call light within reach.
[2016-07-31 15:45] VITALS: BP 146/102; PULSE 76; RESP 18; TEMP 99; O2SAT 97
--- NOTE | 2016-07-31 18:31 | NUR ---
CLOSING NOTE Pt resting quietly in bed with no s/s resp distress, no further c/o pain or discomfort. Needs met, call light within reach.
--- NOTE | 2016-07-31 19:55 | NUR ---
Initial Notes Patient alert and oriented, able to make needs known. Patient denies pain at this time. No SOB noted, on room air. No s/s of nausea/vomiting at this time. IV site patent, flushes well. No s/s of hypo/hyperglycemia. Goal of pain management, /GI stability and safety this shift. Call light within reach. Will continue to monitor.
[2016-07-31 21:25] VITALS: BP 141/93; PULSE 79; RESP 18; TEMP 98.5; O2SAT 96
--- NOTE | 2016-07-31 22:00 | NUR ---
Notes Patient resting in bed, recently medicated with pain medicine. NO SOB noted. IV site patent, flushes well. Call light within reach. Will continue to monitor.
--- NOTE | 2016-08-01 00:15 | NUR ---
Notes Patient sleeping at this time. No s/s of pain or discomfort noted. IV site patent, flushes well. Afebrile. Call light within reach. Will continue to monitor.
[2016-08-01 00:57] VITALS: BP 142/92; PULSE 80; RESP 13; TEMP 98.8; O2SAT 99
[2016-08-01] MEDS: HYDROmorphone 2 MG/ML VIAL IVP PRN ×6 (01:00→21:14)
--- NOTE | 2016-08-01 02:00 | NUR ---
Notes Patient resting in bed, recently medicated with pain medicine. NO SOB noted. IV site patent, flushes well. Call light within reach. Will continue to monitor.
[2016-08-01 04:26] VITALS: BP 149/101; PULSE 87; RESP 16; TEMP 99; O2SAT 95
[2016-08-01] MEDS: hydrALAZINE HCL 25 MG TABLET PO SCH ×3 (06:06→21:14)
[2016-08-01] MEDS: INSULIN ASPART 100 UNITS/ML, 10 ML VIAL (NovoLOG) SUBCUT PRN ×3 (06:10→21:19)
[2016-08-01 06:32] LABS: BASOPHILS # (AUTO) 0.1 K/uL (0.0-0.2); BASOPHILS % (AUTO) 0.6 % (0.0-2.0); EOSINOPHILS # (AUTO) 0.2 K/uL (0.0-0.4); EOSINOPHILS % (AUTO) 2.8 % (0.0-4.0); HEMATOCRIT 33.1 % (36-48); HEMOGLOBIN 10.6 g/dL (12.0-16.0); LYMPHOCYTES # (AUTO) 1.8 K/uL (1.0-5.5); LYMPHOCYTES % (AUTO) 20.2 % (20.5-51.5); MEAN CORPUSCULAR HEMOGLOBIN 30 pg (27-31); MEAN CORPUSCULAR HGB CONC 32 % (32-36); MEAN CORPUSCULAR VOLUME 93 fL (79.0-98.0); MONOCYTES # (AUTO) 0.6 K/uL (0.0-1.0); MONOCYTES % (AUTO) 6.7 % (1.7-9.3); NEUTROPHILS % (AUTO) 69.7 % (40.0-70.0); PLATELET COUNT (AUTO) 277 K/uL (130-430); RED BLOOD CELL COUNT(AUTO) 3.56 MIL/uL (4.2-6.2); RED CELL DISTRIBUTION WIDTH 14.9 % (9.0-15.0); WHITE BLOOD COUNT (AUTO) 8.7 K/uL (4.8-10.8)
--- NOTE | 2016-08-01 06:40 | NUR ---
Closing Notes Patient denies pain at this time. No SOB noted, on room air. No s/s of nausea/vomiting at this time. IV site patent, flushes well. No s/s of hypo/hyperglycemia. Goal of pain management, /GI stability and safety met. Call light within reach. Will continue to monitor.
[2016-08-01 06:47] LABS: CALCIUM 8.9 mg/dL (8.4-11.0); CREATININE 3.73 mg/dL (0.55-1.30); POTASSIUM 4.1 mmol/L (3.5-5.1)
[2016-08-01 07:35] VITALS: BP 155/103; PULSE 79; RESP 20; TEMP 99; O2SAT 95
--- NOTE | 2016-08-01 07:35 | NUR ---
INITIAL ROUNDS Received pt AAOx4, no s/s resp distress, c/o right flank pain 08/11-will check on pain medications. Pt sitting up in bed feeding herself breakfast. Plan of care for the day reviewed with pt-pt verbalized her understanding. Noted Perma-cath to right upper chest with dressing clean, dry & intact. Pain management, disease process, skin and safety discussed-teach back done. Contact phone number explained, call light within reach. Addendum: 08/01/16 at 0903 by Ashley Richardson RN NOTE PT C/O PAIN 10/11-DOCUMENTED THE WRONG NUMBER.
[2016-08-01] MEDS: ONDANSETRON HCL 4 MG/2 ML VIAL IVP PRN (08:01)
[2016-08-01] MEDS: METOCLOPRAMIDE HCL 10 MG/2 ML VIAL IVP PRN ×2 (08:36→10:25)
[2016-08-01] MEDS: HEPARIN SODIUM,PORCINE 5000 UNITS/ML VIAL SUBCUT SCH ×2 (09:00→21:00)
[2016-08-01] MEDS: DOCUSATE SODIUM 250 MG CAPSULE PO SCH ×2 (10:27→21:13)
[2016-08-01] MEDS: cefTRIAXone 1 GM in D5W 50 ML IV SCH (10:27)
[2016-08-01] MEDS: NIFEDIPINE 60 MG TABLET.SA (PROCARDIA XL 60 MG) PO SCH (10:27)
[2016-08-01] MEDS: METOPROLOL SUCCINATE 50 MG TAB.SR.24H (TOPROL XL) PO SCH ×2 (10:27→21:13)
[2016-08-01] MEDS: BUMETANIDE 1 MG TABLET PO SCH ×2 (10:28→21:12)
--- NOTE | 2016-08-01 10:30 | NUR ---
NAUSEA & VOMITING Pt continue to have N/V, Dr. Girard informed and stated okay to give 1 time dose of 5mg Reglan and that he will order a GI consult. Pt given Reglan as ordered. Light turned down low and curtain pulled to promote rest. Call light within reach.
--- NOTE | 2016-08-01 11:29 | NUR ---
CALLED GI CONSULT TO DR FERNANDEZ, DR HAMPTON CANDY ROLLING MACHINE OPERATOR, RE; INTRACTABLE N/V. SPOKE TO ADDISON
[2016-08-01 12:38] VITALS: BP 142/90; PULSE 82; RESP 17; TEMP 98.4; O2SAT 98
--- NOTE | 2016-08-01 14:00 | NUR ---
ROUNDS Pt sleeping soundly, rise and fall of chest even & unlabored, no s/s pain or discomfort. Call light within reach.
[2016-08-01 16:12] VITALS: BP 133/94; PULSE 89; RESP 17; TEMP 97.9; O2SAT 98
--- NOTE | 2016-08-01 16:15 | NUR ---
ROUNDS Pt resting quietly in bed with no s/s resp distress, no c/o pain or discomfort. No further c/o GI distress. Needs met, call light within reach.
--- NOTE | 2016-08-01 18:20 | NUR ---
CLOSING NOTE Pt resting quietly in bed with no c/o pain or discomfort, no c/o nausea or vomiting. Pt informed earlier that Dr. Girard ordered a consult with Dr. Machado the GI specialist. Needs met, call light within reach.
[2016-08-01 20:28] VITALS: BP 135/89; PULSE 85; RESP 18; TEMP 97.8; O2SAT 95
--- NOTE | 2016-08-01 21:15 | NUR ---
Patient awake verbally responsive , assist out of bed to rest room on room air 02 sat 96 % skin dry warm .
--- NOTE | 2016-08-02 | NUR ---
DILAUDID 2 MG IVP ADMINISTER as ordered general pain 10/11 comfort measures helpful .
[2016-08-02 00:09] VITALS: BP 143/91; PULSE 76; RESP 18; TEMP 98.3; O2SAT 98
[2016-08-02] MEDS: HYDROmorphone 2 MG/ML VIAL IVP PRN ×6 (01:32→22:59)
[2016-08-02 03:47] VITALS: BP 134/74; PULSE 78; RESP 18; TEMP 98.1; O2SAT 94
--- NOTE | 2016-08-02 04:18 | NUR ---
Hourly Rounding patient awake assist for position change call alexander with patient .
--- NOTE | 2016-08-02 04:21 | NUR ---
Pain control comfort measures implemented off loading with pillows helpful , no complaints made .
--- NOTE | 2016-08-02 04:23 | NUR ---
DILAUDID 2 MG IVP administer again for general pain 10/11 & helpful .
[2016-08-02] MEDS: hydrALAZINE HCL 25 MG TABLET PO SCH ×3 (05:49→23:06)
--- NOTE | 2016-08-02 06:40 | NUR ---
Patient awake alert medicated for pain 10/11 comfort measures implemented & helpful .
[2016-08-02 07:06] LABS: BASOPHILS % (AUTO) 0.3 % (0.0-2.0); EOSINOPHILS # (AUTO) 0.2 K/uL (0.0-0.4); EOSINOPHILS % (AUTO) 2.4 % (0.0-4.0); HEMATOCRIT 34.2 % (36-48); HEMOGLOBIN 11.2 g/dL (12.0-16.0); LYMPHOCYTES # (AUTO) 1.7 K/uL (1.0-5.5); LYMPHOCYTES % (AUTO) 21.2 % (20.5-51.5); MEAN CORPUSCULAR HEMOGLOBIN 30 pg (27-31); MEAN CORPUSCULAR HGB CONC 33 % (32-36); MEAN CORPUSCULAR VOLUME 93 fL (79.0-98.0); MONOCYTES # (AUTO) 0.6 K/uL (0.0-1.0); MONOCYTES % (AUTO) 6.8 % (1.7-9.3); NEUTROPHILS # (AUTO) 5.7 K/uL (1.8-7.7); NEUTROPHILS % (AUTO) 69.3 % (40.0-70.0); PLATELET COUNT (AUTO) 267 K/uL (130-430); RED BLOOD CELL COUNT(AUTO) 3.69 MIL/uL (4.2-6.2); WHITE BLOOD COUNT (AUTO) 8.2 K/uL (4.8-10.8)
[2016-08-02 07:19] LABS: CALCIUM 9.1 mg/dL (8.4-11.0); CREATININE 5.51 mg/dL (0.55-1.30); POTASSIUM 4.6 mmol/L (3.5-5.1)
--- NOTE | 2016-08-02 07:20 | NUR ---
AM ROUNDS Pt sleeping. Easily wakes with verbal stimuli...Denies pain at this time. IV pain medication just given by night nurse...HL to LH flushes well...Charli to right chest wall...Awaiting GI consult...Denies N/V/D...Call light/phone w/in reach...Will cont to monitor
--- NOTE | 2016-08-02 07:51 | NUR ---
DR BOWEN AT BEDSIDE Dr. Bowen recommends surgical consult for gallbladder sludge...Will inform Dr. Girard
[2016-08-02] MEDS: HEPARIN SODIUM,PORCINE 5000 UNITS/ML VIAL SUBCUT SCH ×3 (09:00→21:00)
[2016-08-02 09:12] VITALS: BP 144/94; PULSE 82; RESP 20; TEMP 98.2; O2SAT 97
[2016-08-02] MEDS: NIFEDIPINE 60 MG TABLET.SA (PROCARDIA XL 60 MG) PO SCH (09:14)
[2016-08-02] MEDS: DOCUSATE SODIUM 250 MG CAPSULE PO SCH ×2 (09:14→23:05)
[2016-08-02] MEDS: METOPROLOL SUCCINATE 50 MG TAB.SR.24H (TOPROL XL) PO SCH ×2 (09:14→23:07)
[2016-08-02] MEDS: BUMETANIDE 1 MG TABLET PO SCH ×2 (09:14→23:08)
--- NOTE | 2016-08-02 09:17 | NUR ---
Surgery Consult: for Dr. Wilhelm. He is aware of consult. He spoke on phone with nurse, Giovanna.
[2016-08-02] MEDS: cefTRIAXone 1 GM in D5W 50 ML IV SCH (09:20)
--- NOTE | 2016-08-02 09:55 | NUR ---
PAIN PAIN MEDICATION ADMINISTERED FOR PAIN 11/11. PATIENT EDUCATED ON MED. SIDE EFFECTS AND TO USE CALL LIGHT FOR ASSISTANCE WITH NEEDS AND GETTING UP. PATIENT VERBALIZED UNDERSTANDING.
--- NOTE | 2016-08-02 10:33 | NUR ---
DR JOHNSON AT BEDSIDE
[2016-08-02 11:34] VITALS: BP 149/81; PULSE 70; RESP 19; TEMP 97; O2SAT 96
[2016-08-02] MEDS: INSULIN ASPART 100 UNITS/ML, 10 ML VIAL (NovoLOG) SUBCUT PRN (12:28)
--- NOTE | 2016-08-02 14:14 | NUR ---
ROUNDS PT APPEARS COMFORTABLE...SITTING UP WATCHING TV...WILL CONT TO MONITOR
--- NOTE | 2016-08-02 14:32 | NUR ---
DR DIAZ AT BEDSIDE
[2016-08-02 15:37] VITALS: BP 127/79; PULSE 78; RESP 19; TEMP 98; O2SAT 97
--- NOTE | 2016-08-02 17:02 | NUR ---
ROUNDS PT STABLE..NO CHANGES...LYING IN BED..WILL CONT TO MONITOR
--- NOTE | 2016-08-02 19:08 | NUR ---
ROUNDS PT STABLE...NO CHANGES..ALL NEEDS MET...WILL CONT TO MONITOR
--- NOTE | 2016-08-02 19:43 | NUR ---
Initial PM Note Pt is fully AAO x4 and resting comfortably in bed. Speech is clear and pt is able to make her needs known. No c/o pain or discomfort at this time. No acute distress noted. Skin is warm and dry to touch. No signs or symptoms of hypoglycemia or hyperglycemia noted. Saline lock is patent in Lt Hand. Rt chest Charli Cath for Hemodialysis is intact with the dressing clean, dry and intact. Fall precautions are in place. Call light is with pt. Pt was instructed to call for assistance as needed and pt verbalized understanding. Bed is in the lowest and locked positions. Pt was instructed on nothing by mouth after midnight for HIDA scan in AM and pt verbalized understanding. Will continue to monitor pt.
[2016-08-02 19:45] VITALS: BP 155/89; PULSE 76; RESP 18; TEMP 97.3; O2SAT 99
--- NOTE | 2016-08-02 22:59 | NUR ---
Pain Medication Dilaudid 2mg was given IV for c/o Rt flank pain with relief.
--- NOTE | 2016-08-02 23:05 | NUR ---
Blood Sugar Accucheck 227 and pt refused sliding scale Insulin coverage. Pt stated she does not want to be "poked with a needle for just 4 units." Skin remains warm and dry to touch. Pt also stated her blood sugar may drop in the middle of the night. HS snacks of 1/2 [place] and 1 cup cranberry juice given to pt per her request and pt consumed 100%. Will continue to monitor pt.
[2016-08-03 00:29] VITALS: BP 147/97; PULSE 78; RESP 19; TEMP 97.6; O2SAT 97
--- NOTE | 2016-08-03 02:00 | NUR ---
Rounds Pt is sleeping quietly in bed. No acute distress noted. Call light is with pt.
[2016-08-03] MEDS: HYDROmorphone 2 MG/ML VIAL IVP PRN ×4 (03:30→19:21)
--- NOTE | 2016-08-03 03:30 | NUR ---
Pain Medication Dilaudid 2mg was given IV for c/o Rt flank pain with relief.
[2016-08-03 04:05] VITALS: BP 142/89; PULSE 80; RESP 20; TEMP 98; O2SAT 97
--- NOTE | 2016-08-03 05:00 | NUR ---
Rounds Pt is sleeping without any distress noted.
[2016-08-03] MEDS: hydrALAZINE HCL 25 MG TABLET PO SCH ×3 (06:00→22:21)
--- NOTE | 2016-08-03 06:29 | NUR ---
Closing Note Pt is resting comfortably in bed at this time. All pt's needs were attended to. No fall or injury noted this shift. Accucheck 163 this AM and sliding scale Insulin held due to NPO status. 0600 Apresoline also held because pt is scheduled for hemodialysis today. Will endorse to day shift nurse.
[2016-08-03 06:41] LABS: CREATININE 6.45 mg/dL (0.55-1.30); POTASSIUM 4.6 mmol/L (3.5-5.1)
[2016-08-03 07:00] LABS: BASOPHILS % (AUTO) 0.3 % (0.0-2.0); EOSINOPHILS # (AUTO) 0.2 K/uL (0.0-0.4); EOSINOPHILS % (AUTO) 2.4 % (0.0-4.0); HEMATOCRIT 31.6 % (36-48); HEMOGLOBIN 10.3 g/dL (12.0-16.0); LYMPHOCYTES # (AUTO) 1.6 K/uL (1.0-5.5); LYMPHOCYTES % (AUTO) 19.6 % (20.5-51.5); MEAN CORPUSCULAR HEMOGLOBIN 30 pg (27-31); MEAN CORPUSCULAR HGB CONC 33 % (32-36); MEAN CORPUSCULAR VOLUME 91 fL (79.0-98.0); MONOCYTES # (AUTO) 0.6 K/uL (0.0-1.0); MONOCYTES % (AUTO) 6.8 % (1.7-9.3); NEUTROPHILS # (AUTO) 5.8 K/uL (1.8-7.7); NEUTROPHILS % (AUTO) 70.9 % (40.0-70.0); PLATELET COUNT (AUTO) 269 K/uL (130-430); RED BLOOD CELL COUNT(AUTO) 3.47 MIL/uL (4.2-6.2); RED CELL DISTRIBUTION WIDTH 14.5 % (9.0-15.0); WHITE BLOOD COUNT (AUTO) 8.2 K/uL (4.8-10.8)
--- NOTE | 2016-08-03 07:20 | NUR ---
Report/HIDA Scan Refusal While giving bedside report to Nurses Shilpa and Rozina, pt stated she does not want HIDA scan done anymore. Pt stated it should be cancelled because she had one done a month ago and it showed sludge. Pt stated she wants her pain medication that is due at 0730. Ruchi in Radiology Dept was informed pt has refused HIDA scan. Dr. Wilhelm was paged.
--- NOTE | 2016-08-03 07:22 | NUR ---
NOTE DR. DIAZ WAS PAGED BY RETAIL MERCHANDISING COORDINATOR NURSE. SPOKE WITH HIM REGARDING REFUSAL OF HIDA SCAN, BECAUSE SHE WOULD LIKE PAIN MEDICATION. I WAS TOLD TO CHECK WITH RADIOLOGY REGARDING WHAT PAIN MEDICATION SHE COULD BE GIVEN AND GIVEN AN ORDER FOR 4MG ATIVAN IV.
--- NOTE | 2016-08-03 07:32 | NUR ---
NOTE SPOKE WITH MENDOZA FROM RADIOLOGY REGARDING PAIN MEDICATION. SHE SAID NO OPIOIDS CAN BE GIVEN BECAUSE IT AFFECTS THE SCAN. DR. DIAZ WAS REPAGED REGARDING THE MEDICATION ORDER. ATIVAN ORDER CHANGED TO 2MG IV. NO NEW PAIN MEDICATION ORDERS WERE GIVEN.
--- NOTE | 2016-08-03 07:41 | NUR ---
NOTE SPOKE WITH MENDOZA IN RADIOLOGY. PATIENT AGREES TO HAVE HIDA SCAN, ATIVAN TO BE GIVEN PRIOR TO. PATIENT SIGNED CONSENT FOR HEMODIALYSIS.
[2016-08-03] MEDS: LORazepam 2 MG/ML VIAL IVP PRN (07:50)
[2016-08-03 08:01] VITALS: BP 149/98; PULSE 77; RESP 12; TEMP 98.1; O2SAT 99
--- NOTE | 2016-08-03 08:30 | NUR ---
OPENING NOTE PATIENT RESTING COMFORTABLY, NO NOTABLE SIGNS OF DISTRESS AT THIS TIME. PATIENT IS HAVING PAIN AT 8/10 LEVEL AT THIS TIME. NO PAIN MEDICATIONS GIVEN RELATED TO PATIENT HAVING HIDA SCAN. PATIENTS BED IN LOWEST POSITION, CALL LIGHT WITHIN REACH, AND SIDE RAILS ARE UP FOR SAFETY. WILL CONTINUE TO MONITOR FOR CHANGES IN STATUS. Addendum: 08/03/16 at 1542 by Shilpa Pringle RN medication reassessment patient no longer feels anxious but in pain due to no pain medications administered due to HIDA scan, pt stated she will tolerate until she comes back from test.
[2016-08-03] MEDS: METOPROLOL SUCCINATE 50 MG TAB.SR.24H (TOPROL XL) PO SCH ×2 (09:00→22:23)
[2016-08-03] MEDS: NIFEDIPINE 60 MG TABLET.SA (PROCARDIA XL 60 MG) PO SCH (09:00)
[2016-08-03] MEDS: HEPARIN SODIUM,PORCINE 5000 UNITS/ML VIAL SUBCUT SCH ×2 (09:00→21:00)
[2016-08-03] MEDS: cefTRIAXone 1 GM in D5W 50 ML IV SCH (10:17)
[2016-08-03] MEDS: BUMETANIDE 1 MG TABLET PO SCH ×2 (10:17→22:22)
[2016-08-03] MEDS: DOCUSATE SODIUM 250 MG CAPSULE PO SCH ×2 (10:18→22:21)
--- NOTE | 2016-08-03 11:05 | NUR ---
1000 NOTE PATIENT RESTING COMFORTABLY AT THIS TIME. COMPLAINTS OF PAIN AT 2/10 AFTER PAIN MEDICATION ADMINISTRATION. NO NOTABLE SIGNS OF DISTRESS AT THIS TIME. PATIENTS BED IN LOWEST POSITION, CALL LIGHT WITHIN REACH, AND 2 SIDE RAILS ARE UP FOR SAFETY. PATIENT IS ENCOURAGED TO CALL WHEN GETTING OUT OF BED DUE TO INCREASED RISK OF FALL AFTER PAIN MEDICATION. WILL CONTINUE TO MONITOR PATIENT FOR CHANGES IN STATUS.
--- NOTE | 2016-08-03 11:33 | NUR ---
NOTE PATIENTS BLOOD SUGAR WAS 153, PATIENT REFUSED COVERAGE OF 2 UNITS OF INSULIN.
[2016-08-03 11:45] VITALS: BP 131/84; PULSE 84; RESP 19; TEMP 98; O2SAT 98
--- NOTE | 2016-08-03 12:49 | NUR ---
1200 NOTE PATIENT RESTING COMFORTABLY AT THIS TIME. COMPLAINTS OF PAIN AT 3/10, TOLERABLE PER PATIENT AT THIS TIME. NO NOTABLE SIGNS OF DISTRESS AT THIS TIME. PATIENTS BED IN LOWEST POSITION, CALL LIGHT WITHIN REACH, AND 2 SIDE RAILS ARE UP FOR SAFETY. PATIENT IS ENCOURAGED TO CALL WHEN GETTING OUT OF BED DUE TO INCREASED RISK OF FALL AFTER PAIN MEDICATION. WILL CONTINUE TO MONITOR PATIENT FOR CHANGES IN STATUS.
[2016-08-03 13:52] VITALS: Ht 170.2 cm; Wt 59.9 kg
--- NOTE | 2016-08-03 16:05 | NUR ---
Social Service Note: CLAMPER has consult to see pt due to "pain management". CLAMPER spoke with pt's nurse; pt's nurse states that the doctor ordered the consult due to pt asking for pain medication often. CLAMPER attempted to speak with pt 3 times throughout the day; pt sleeping in bed and does not answer when name called. CLAMPER will follow up with pt when she is awake to complete social service assessment.
[2016-08-03 16:23] VITALS: BP 175/108; PULSE 74; RESP 19; TEMP 98.8; O2SAT 98
--- NOTE | 2016-08-03 16:59 | NUR ---
1600 NOTE PATIENT RESTING COMFORTABLY AT THIS TIME. COMPLAINTS OF PAIN AT 2/10, TOLERABLE PER PATIENT AT THIS TIME. NO NOTABLE SIGNS OF DISTRESS AT THIS TIME. PATIENTS BED IN LOWEST POSITION, CALL LIGHT WITHIN REACH, AND 2 SIDE RAILS ARE UP FOR SAFETY. PATIENT IS ENCOURAGED TO CALL WHEN GETTING OUT OF BED DUE TO INCREASED RISK OF FALL AFTER PAIN MEDICATION. WILL CONTINUE TO MONITOR PATIENT FOR CHANGES IN STATUS.
--- NOTE | 2016-08-03 17:49 | NUR ---
NOTE PATIENT BLOOD SUGAR WAS 169, 2 UNITS OF INSULIN REFUSED BY PATIENT.
[2016-08-03] MEDS: cloNIDine HCL 0.1 MG TABLET PO PRN (18:01)
--- NOTE | 2016-08-03 18:05 | NUR ---
NOTE PATIENT BLOOD PRESSURE 192/119, CATAPRES GIVEN. WILL MONITOR FOR CHANGES IN STATUS.
--- NOTE | 2016-08-03 18:26 | NUR ---
CLOSING NOTE WAITING TO GIVE REPORT TO ROOMING HOUSE KEEPER NURSE. PATIENT RESTING COMFORTABLY AT THIS TIME. COMPLAINTS OF PAIN AT 5/10, TOLERABLE PER PATIENT AT THIS TIME, WILL WAIT FOR DILAUDID. PATIENT IS FINISHING DIALYSIS. BLOOD PRESSURE HAS WENT TO 160/104, AFTER MEDICATION GIVEN. NO NOTABLE SIGNS OF DISTRESS AT THIS TIME. PATIENTS BED IN LOWEST POSITION, CALL LIGHT WITHIN REACH, AND 2 SIDE RAILS ARE UP FOR SAFETY. PATIENT IS ENCOURAGED TO CALL WHEN GETTING OUT OF BED DUE TO INCREASED RISK OF FALL AFTER PAIN MEDICATION. WILL CONTINUE TO MONITOR PATIENT FOR CHANGES IN STATUS.
[2016-08-03 20:00] VITALS: BP 151/110; PULSE 75; RESP 18; TEMP 97.1; O2SAT 96
--- NOTE | 2016-08-03 20:00 | NUR ---
Initial PM Note Pt was received lying in bed fully AAO x4. Speech is clear and pt is able to make her needs known. No c/o pain or discomfort at this time. No acute distress noted. Skin is warm and dry to touch. No signs or symptoms of hypoglycemia or hyperglycemia noted. Saline lock is patent in Lt Hand. Rt chest Charli Cath for Hemodialysis is intact with the dressing clean, dry and intact. Fall precautions are in place. Call light is with pt. Pt was instructed to call for assistance as needed and pt verbalized understanding. Bed is in the lowest and locked positions. Will continue to monitor pt.
--- NOTE | 2016-08-03 21:30 | NUR ---
Emesis Pt vomited moderate amount of partially digested food. Pt was offered medication for nausea and vomiting, but pt declined.
[2016-08-04] VITALS (7 sets, daily range): BP systolic 148–165; BP diastolic 91–105; PULSE 72–77; RESP 15–19; TEMP 97.3–98.9; O2SAT 95–98
[2016-08-04] MEDS: HYDROmorphone 2 MG/ML VIAL IVP PRN ×5 (00:07→20:01)
--- NOTE | 2016-08-04 00:07 | NUR ---
Pain Medication Dilaudid 2mg was given IV for c/o Rt flank pain with relief.
--- NOTE | 2016-08-04 03:00 | NUR ---
Rounds Pt is resting comfortably n bed.
--- NOTE | 2016-08-04 04:18 | NUR ---
Pain Medication Dilaudid 2mg was given IV for c/o Rt flank pain with relief.
[2016-08-04] MEDS: cloNIDine HCL 0.1 MG TABLET PO PRN (04:25)
--- NOTE | 2016-08-04 04:25 | NUR ---
Elevated Blood Pressure Clonidine 0.1mg given po for BP of 170/110. Pt is moving all her extremities freely and speech is clear.
[2016-08-04] MEDS: hydrALAZINE HCL 25 MG TABLET PO SCH ×3 (05:58→21:46)
--- NOTE | 2016-08-04 05:58 | NUR ---
Blood Pressure Recheck BP 150/97 and scheduled Apresoline 50mg given po. Pt is moving all her extremities freely and speech is clear.
--- NOTE | 2016-08-04 06:44 | NUR ---
Closing Note Pt is resting comfortably in bed at this time. All pt's needs were attended to. No fall or injury noted this shift. Accucheck 127 this AM and no sliding scale Insulin coverage needed. Will endorse to day shift nurse.
--- NOTE | 2016-08-04 07:00 | NUR ---
OPENING NOTE RECEIVED REPORT FROM NET SORTER NURSE. PATIENT RESTING COMFORTABLY AT THIS TIME. COMPLAINTS OF PAIN AT 6/10, TOLERABLE PER PATIENT AT THIS TIME, BUT WOULD LIKE TO HAVE PAIN MEDICATIONS SOON THEY WERE AVAILABLE. PATIENT HAS MILD NAUSEA AND SAYS SHE HAD EPISODES OF VOMITING DURING THE NIGHT. NO NOTABLE SIGNS OF DISTRESS AT THIS TIME. PATIENTS BED IN LOWEST POSITION, CALL LIGHT WITHIN REACH, AND 2 SIDE RAILS ARE UP FOR SAFETY. PATIENT IS ENCOURAGED TO CALL WHEN GETTING OUT OF BED DUE TO INCREASED RISK OF FALL AFTER PAIN MEDICATION. WILL CONTINUE TO MONITOR PATIENT FOR CHANGES IN STATUS.
[2016-08-04 07:13] LABS: BASOPHILS % (AUTO) 0.3 % (0.0-2.0); EOSINOPHILS # (AUTO) 0.2 K/uL (0.0-0.4); EOSINOPHILS % (AUTO) 2.3 % (0.0-4.0); HEMATOCRIT 32.5 % (36-48); HEMOGLOBIN 10.9 g/dL (12.0-16.0); LYMPHOCYTES # (AUTO) 1.3 K/uL (1.0-5.5); LYMPHOCYTES % (AUTO) 19.1 % (20.5-51.5); MEAN CORPUSCULAR HEMOGLOBIN 30 pg (27-31); MEAN CORPUSCULAR HGB CONC 34 % (32-36); MEAN CORPUSCULAR VOLUME 91 fL (79.0-98.0); MONOCYTES # (AUTO) 0.5 K/uL (0.0-1.0); MONOCYTES % (AUTO) 7.7 % (1.7-9.3); NEUTROPHILS # (AUTO) 4.8 K/uL (1.8-7.7); NEUTROPHILS % (AUTO) 70.6 % (40.0-70.0); PLATELET COUNT (AUTO) 242 K/uL (130-430); RED BLOOD CELL COUNT(AUTO) 3.59 MIL/uL (4.2-6.2); RED CELL DISTRIBUTION WIDTH 14.6 % (9.0-15.0); WHITE BLOOD COUNT (AUTO) 6.8 K/uL (4.8-10.8)
[2016-08-04 07:25] LABS: ALBUMIN 3.3 g/dL (3.4-4.8); CREATININE 4.74 mg/dL (0.55-1.30); POTASSIUM 4.4 mmol/L (3.5-5.1); TOTAL BILIRUBIN 0.5 mg/dL (0.0-1.0); TOTAL PROTEIN, SERUM 6.7 g/dL (6.4-8.3)
[2016-08-04] MEDS: DOCUSATE SODIUM 250 MG CAPSULE PO SCH ×2 (08:57→21:46)
[2016-08-04] MEDS: NIFEDIPINE 60 MG TABLET.SA (PROCARDIA XL 60 MG) PO SCH (08:57)
[2016-08-04] MEDS: METOPROLOL SUCCINATE 50 MG TAB.SR.24H (TOPROL XL) PO SCH ×2 (09:00→21:46)
[2016-08-04] MEDS: HEPARIN SODIUM,PORCINE 5000 UNITS/ML VIAL SUBCUT SCH ×2 (09:00→20:55)
[2016-08-04] MEDS: cefTRIAXone 1 GM in D5W 50 ML IV SCH (09:01)
[2016-08-04] MEDS: BUMETANIDE 1 MG TABLET PO SCH ×2 (09:01→21:45)
--- NOTE | 2016-08-04 09:25 | NUR ---
CONS FOR DR STEW DIMAS FROM OFFICE FOR OPIOD DEP
--- NOTE | 2016-08-04 09:54 | NUR ---
Social Service Note: POTTERY DECORATOR met with pt at bedside; pt tearful. Pt states that she spoke to her on the phone to alert him she would be having surgery; pt states that her does not want her to have surgery because he is missing work to take care of their 4 year old daughter. Pt states that she takes care of their 4 year old daughter. Pt, pt's , and their daughter live with pt's aunt and uncle who work multimedia specialist. Pt states that her daughter goes to preschool on Tuesday and when pt has dialysis. Pt states that she wants the surgery to have her gallbladder removed because it is causing pain. Pt states that she has chronic pain and has a pain management doctor she sees outpatient. POTTERY DECORATOR was unable to continue assessment due to pt being prepped for surgery. POTTERY DECORATOR will remain available for support and will continue to follow up with pt to conduct full assessment.
--- NOTE | 2016-08-04 09:58 | NUR ---
NOTE DR ROBERT WAS IN AND ORDERED A STAT EKG AND UA HCG, WHICH WAS NOTED AND CARRIED OUT. DR ROBERT STATED THAT IF THE PATIENT CANNOT URINATE TO STRAIGHT CATH HER, ORDER WAS NOTED AND CARDIO WAS CALLED FOR THE STAT EKG. PATIENT IS AWARE.
--- NOTE | 2016-08-04 10:00 | NUR ---
1000 NOTE PATIENT RESTING COMFORTABLY AT THIS TIME. COMPLAINTS OF PAIN AT 4/10, TOLERABLE PER PATIENT AT THIS TIME, PATIENT STATES THE PAIN MEDICATION HAS WORKED. PATIENT HAS MILD NAUSEA AND HAS HAD 2 EPISODES OF VOMITING THIS MORNING. DR. DIAZ SPOKE WITH THE PATIENT. PATIENT AGREES TO HAVING CHOLECYSTECTOMY LAPAROSCOPY VS. OPEN. CONSENT SIGNED FOR BLOOD, SURGERY, AND ANESTHESIA. PATIENT STATES SHE IS FEELING MORE ANXIOUS AT THIS TIME. NO NOTABLE SIGNS OF DISTRESS AT THIS TIME. PATIENTS BED IN LOWEST POSITION, CALL LIGHT WITHIN REACH, AND 2 SIDE RAILS ARE UP FOR SAFETY. PATIENT IS ENCOURAGED TO CALL WHEN GETTING OUT OF BED DUE TO INCREASED RISK OF FALL AFTER PAIN MEDICATION. WILL CONTINUE TO MONITOR PATIENT FOR CHANGES IN STATUS.
[2016-08-04 10:40] LABS: HCG,QUAL RESULT NEGATIVE (NEGATIVE)
--- NOTE | 2016-08-04 12:15 | NUR ---
1200 NOTE PATIENT RESTING COMFORTABLY AT THIS TIME. COMPLAINTS OF PAIN AT 4/10, TOLERABLE PER PATIENT AT THIS TIME, PATIENT STATES THE PAIN MEDICATION IS STILL WORKING. PATIENT HAS MILD NAUSEA AND HAS HAD 2 EPISODES OF VOMITING THIS MORNING. DR. DIAZ SPOKE WITH THE PATIENT, AND HAS POSTPONED SURGERY UNTIL 1500 TODAY. PATIENT IS STILL NPO AT THIS TIME. NO NOTABLE SIGNS OF DISTRESS AT THIS TIME. PATIENTS BED IN LOWEST POSITION, CALL LIGHT WITHIN REACH, AND 2 SIDE RAILS ARE UP FOR SAFETY. PATIENT IS ENCOURAGED TO CALL WHEN GETTING OUT OF BED DUE TO INCREASED RISK OF FALL AFTER PAIN MEDICATION. WILL CONTINUE TO MONITOR PATIENT FOR CHANGES IN STATUS.
--- NOTE | 2016-08-04 15:07 | NUR ---
1400 NOTE PATIENT RESTING COMFORTABLY AT THIS TIME. COMPLAINTS OF PAIN AT 4/10, TOLERABLE PER PATIENT AT THIS TIME, PATIENT STATES THE PAIN MEDICATION IS STILL WORKING. PATIENT IS STILL NPO AT THIS TIME. WAITING FOR SURGERY AT 1500. PATIENT HAS HAD HCG BATH BY SENIOR DIRECTOR INSIGHT NO NOTABLE SIGNS OF DISTRESS AT THIS TIME. PATIENTS BED IN LOWEST POSITION, CALL LIGHT WITHIN REACH, AND 2 SIDE RAILS ARE UP FOR SAFETY. PATIENT IS ENCOURAGED TO CALL WHEN GETTING OUT OF BED DUE TO INCREASED RISK OF FALL AFTER PAIN MEDICATION. WILL CONTINUE TO MONITOR PATIENT FOR CHANGES IN STATUS.
[2016-08-04] MEDS ORDERED: MIDAZOLAM HCL 5 MG/5 ML VIAL IVP ONE (15:46)
[2016-08-04] MEDS ORDERED: KETOROLAC TROMETHAMINE 30 MG VIAL IVP ONE (15:46)
[2016-08-04] MEDS ORDERED: CEFAZOLIN 1 GM IVPB PREMIX 50 ML IV ONE (15:46)
[2016-08-04] MEDS ORDERED: BUPIVACAINE /EPINEPHRINE/PF 0.25% 30 ML VIAL INJ ONE (15:46)
[2016-08-04] MEDS ORDERED: ONDANSETRON HCL 4 MG/2 ML VIAL IVP ONE (15:46)
[2016-08-04] MEDS ORDERED: SEVOFLURANE 15 MIN GAS INH ONE (15:46)
[2016-08-04] MEDS ORDERED: fentaNYL CITRATE/PF 100 MCG/2 ML AMP IVP ONE (15:46)
[2016-08-04] MEDS ORDERED: PROPOFOL 200MG/ 20ML VIAL (DIPRIVAN) IV ONE (15:46)
[2016-08-04] MEDS ORDERED: ATRACURIUM BESYLATE 100 MG/10 ML VIAL (ATRACURIUM) IV ONE (15:46)
[2016-08-04] MEDS ORDERED: NS 1000 ML BAG IV ONE (15:46)
[2016-08-04] MEDS ORDERED: NS IRRIG SOLN 1000 ML IR ONE (15:46)
--- NOTE | 2016-08-04 16:00 | NUR ---
1600 NOTE PATIENT IN OR.
[2016-08-04] MEDS ORDERED: NACL 0.9% 1,000 ML IV SCH (16:26)
[2016-08-04] MEDS ORDERED: ONDANSETRON HCL 4 MG/2 ML VIAL IVP PRN (16:30)
[2016-08-04] MEDS ORDERED: LABETALOL 100 MG/ 20ML VIAL IVP PRN (17:30)
[2016-08-04] MEDS ORDERED: MIDAZOLAM HCL 2 MG/2 ML VIAL (VERSED) IVP ONE (17:45)
[2016-08-04] MEDS ORDERED: MIDAZOLAM HCL 2 MG/2 ML VIAL (VERSED) ONE (17:47)
[2016-08-04] MEDS: KETOROLAC TROMETHAMINE 30 MG VIAL IVP ONE ×2 (18:01→18:05)
[2016-08-04] MEDS ORDERED: KETOROLAC TROMETHAMINE 30 MG VIAL ONE (18:12)
--- NOTE | 2016-08-04 18:55 | NUR ---
NOTE PATIENT CAME FROM O.R. REPORT GIVEN FROM OR NURSE. PATIENT IS IN PAIN, REFUSING VITAL SIGNS. WE EXPLAINED THAT MEDICATIONS FOR PAIN CANNOT BE GIVEN WITHOUT VITAL SIGNS. PATIENT STILL REFUSED. WILL GIVE REPORT TO GRAVEL WHEELER NURSE. PATIENT BED IN LOWEST POSITION, CALL LIGHT WITHIN REACH, AND ENCOURAGED TO CALL IF NEEDING UP OUT OF BED.
--- NOTE | 2016-08-04 19:50 | NUR ---
Initial PM Note Pt was received lying in bed fully AAO x4. Speech is clear and pt is able to make her needs known. Two mid abdominal Lap sites dressings are dry and intact. Rt abdominal GIANCARLO dressing noted to be moderately saturated with pinkish fluid. GIANCARLO bulb to suction has small amount of bloody drainage. Pt c/o abdominal incisional pain. Will medicate pt per her request. VSS. Skin is warm and dry to touch. No signs or symptoms of hypoglycemia or hyperglycemia noted. IVF of NS is infusing well at TKO rate in LFA without any signs of infiltration. Rt chest Charli Cath for Hemodialysis is intact with the dressing clean, dry and intact. Fall precautions are in place. Call light is with pt and bed alarm is on. Pt was instructed to call for assistance as needed and pt verbalized understanding. Bed is in the lowest and locked positions. Will continue to monitor pt.
--- NOTE | 2016-08-04 20:01 | NUR ---
Pain Medication Dilaudid 2mg given IV for c/o abdominal incisional pain with relief.
--- NOTE | 2016-08-04 20:55 | NUR ---
Blood Sugar Accucheck 174 and pt refused sliding scale Insulin coverage. Skin remains warm and dry to touch.
[2016-08-05] VITALS (8 sets, daily range): BP systolic 90–135; BP diastolic 51–80; PULSE 75–91; RESP 16–23; TEMP 97.8–99.5; O2SAT 95–98
[2016-08-05] MEDS: HYDROmorphone 2 MG/ML VIAL IVP PRN ×6 (00:04→23:39)
--- NOTE | 2016-08-05 00:04 | NUR ---
Pain Medication Dilaudid 2mg given IV for c/o abdominal incisional pain with relief.
[2016-08-05] MEDS: LORazepam 2 MG/ML VIAL IVP PRN ×3 (01:46→17:46)
--- NOTE | 2016-08-05 01:46 | NUR ---
Anxiety Medication Ativan 1mg was given IV for c/o anxiety with relief.
--- NOTE | 2016-08-05 03:15 | NUR ---
Rounds Pt is sleeping comfortably in bed.
--- NOTE | 2016-08-05 05:00 | NUR ---
Rounds Pt is sleeping without any distress noted. Fall and safety precautions are in place.
--- NOTE | 2016-08-05 05:29 | NUR ---
Pain Medication Dilaudid 2mg given IV for c/o abdominal incisional pain with relief.
[2016-08-05] MEDS: hydrALAZINE HCL 25 MG TABLET PO SCH ×3 (05:30→22:00)
[2016-08-05 06:30] LABS: BASOPHILS % (AUTO) 0.1 % (0.0-2.0); EOSINOPHILS % (AUTO) 0.1 % (0.0-4.0); HEMOGLOBIN 9.4 g/dL (12.0-16.0); LYMPHOCYTES # (AUTO) 0.7 K/uL (1.0-5.5); LYMPHOCYTES % (AUTO) 5.4 % (20.5-51.5); MEAN CORPUSCULAR HEMOGLOBIN 29 pg (27-31); MEAN CORPUSCULAR HGB CONC 32 % (32-36); MEAN CORPUSCULAR VOLUME 91 fL (79.0-98.0); MONOCYTES # (AUTO) 0.6 K/uL (0.0-1.0); MONOCYTES % (AUTO) 4.9 % (1.7-9.3); NEUTROPHILS # (AUTO) 11.3 K/uL (1.8-7.7); NEUTROPHILS % (AUTO) 89.5 % (40.0-70.0); PLATELET COUNT (AUTO) 255 K/uL (130-430); RED BLOOD CELL COUNT(AUTO) 3.19 MIL/uL (4.2-6.2); RED CELL DISTRIBUTION WIDTH 14.7 % (9.0-15.0); WHITE BLOOD COUNT (AUTO) 12.6 K/uL (4.8-10.8)
[2016-08-05 06:57] LABS: ALBUMIN 2.9 g/dL (3.4-4.8); CREATININE 6.28 mg/dL (0.55-1.30); TOTAL BILIRUBIN 0.6 mg/dL (0.0-1.0); TOTAL PROTEIN, SERUM 6.4 g/dL (6.4-8.3)
--- NOTE | 2016-08-05 07:00 | NUR ---
Closing Note Pt is resting comfortably in bed at this time. All pt's needs were attended to. No fall or injury noted this shift. Will endorse to day shift nurse.
[2016-08-05 07:22] LABS: POTASSIUM 5.8 mmol/L (3.5-5.1)
--- NOTE | 2016-08-05 08:07 | NUR ---
OPENING NOTE RECEIVED REPORT FROM SHORT GOODS DRIER RITA. PATIENT RESTING COMFORTABLY AT THIS TIME. COMPLAINTS OF PAIN AT 8/10, PATIENT WOULD LIKE MEDICATION SOON DILAUDID IS AVAILABLE. PATIENT HAD SURGERY YESTERDAY, AND DRESSING IS CHANGED BY DR. DIAZ. 4X4 WITH OP SITE DRESSING. GIANCARLO DRAIN IN PLACE TOTAL OUTPUT OF 150 DURING PM SHIFT, 10ML DRAINED AT 0630. NO NOTABLE SIGNS OF DISTRESS AT THIS TIME. PATIENTS BED IN LOWEST POSITION, CALL LIGHT WITHIN REACH, AND 2 SIDE RAILS ARE UP FOR SAFETY. PATIENT IS ENCOURAGED TO CALL WHEN GETTING OUT OF BED DUE TO INCREASED RISK OF FALL AFTER PAIN MEDICATION. WILL CONTINUE TO MONITOR PATIENT FOR CHANGES IN STATUS.
[2016-08-05] MEDS: METOPROLOL SUCCINATE 50 MG TAB.SR.24H (TOPROL XL) PO SCH ×2 (09:00→21:00)
[2016-08-05] MEDS: HEPARIN SODIUM,PORCINE 5000 UNITS/ML VIAL SUBCUT SCH ×2 (09:00→21:00)
[2016-08-05] MEDS: NIFEDIPINE 60 MG TABLET.SA (PROCARDIA XL 60 MG) PO SCH (09:00)
[2016-08-05] MEDS: BUMETANIDE 1 MG TABLET PO SCH ×2 (09:31→22:00)
[2016-08-05] MEDS: DOCUSATE SODIUM 250 MG CAPSULE PO SCH ×2 (09:31→22:00)
[2016-08-05] MEDS: cefTRIAXone 1 GM in D5W 50 ML IV SCH (09:31)
[2016-08-05] MEDS: cloNIDine HCL 0.1 MG/24 HR PATCH.TDWK TD SCH (09:32)
--- NOTE | 2016-08-05 10:35 | NUR ---
1000 NOTE PATIENT RESTING COMFORTABLY AT THIS TIME. COMPLAINTS OF PAIN AT 06/11,PATIENT HAD DILAUDID ADMINISTERED TO CONTROL PAIN. PATIENT REFUSED HEPARIN INJECTION WITH MORNING MEDICATIONS. PATIENT HAD SURGERY YESTERDAY. GIANCARLO DRAIN IN PLACE. NO NOTABLE SIGNS OF DISTRESS AT THIS TIME. PATIENTS BED IN LOWEST POSITION, CALL LIGHT WITHIN REACH, AND 2 SIDE RAILS ARE UP FOR SAFETY. PATIENT IS ENCOURAGED TO CALL WHEN GETTING OUT OF BED DUE TO INCREASED RISK OF FALL AFTER PAIN MEDICATION. WILL CONTINUE TO MONITOR PATIENT FOR CHANGES IN STATUS.
--- NOTE | 2016-08-05 14:59 | NUR ---
Nutrition F/U Nutritional Screening High Risk Screening Admitting Diagnosis Right-sided pyelonephritis, moderate malnutrition, diabetic nephropathy Reviewed Pertinent Medical/Surgical Hx Patient Medical Record Medical History Comment: ESRD, HTN, type 1 DM, possible CHF Sx Hx: Fistula placement, , laparoscopic cholecystectomy for calculous cholecystitis (08/04/16) per MD notes Subjective Information Physical: Pt seen resting in bed, lethargic, at time of visit. Pt was receiving HD treatment with 2 dialysis RNs at bedside. Pt continues to appear adequately nourished for height with no physical signs of malnutrition. GI Integrity: Per petroleum supply specialist, abdomen is soft and non-distended with active bowel sounds. No BMs recorded. Last BM per pt was yesterday. PO Intakes: Pt reports she continues to have a poor appetite with very low PO intakes. Pt was NPO 08/03/16 prior to surgical procedure and states she hardly ate in the past few days. Plans/Procedures: Pt is s/p 2 days laparoscopic cholecystectomy for calculous cholecystitis. TIMERS INSPECTOR met with pt yesterday, but was unable to conduct full assessment; will follow up. Per MD notes, continue insulin, abx, HD, and pain control. Current diet is adequate and appropriate, but pt is not receiving optimum nutrition d/t poor appetite. Pt declined nutrition education at this time. Current Diet Order/Nutrition Support Renal standard (x2 days) (pt was NPO on 08/03) Patient/Significant Other Unable To Verbalize Education Provided Not Indicated Pertinent Medications Reglan, colace, ativan, dilaudid, zofran, insulin aspart, MgSO4, K-dur, ceftriaxone IV Pertinent Labs 08/05/16: WBC 12.6 H, Hgb 9.4 L, Hct 29 L, K 5.8 H, CRE 6.28 H, BG 213 H, ALB 2.9 L Height (Feet) 5 feet Height (Inches) 7.00 inches Weight (Pounds) 129 pounds Weight (Calculated Kilograms) 58.473396 kilograms Patient Weight 58.513 kg Body Mass Index 20.20 kg/m2 %IBW 96 [place]/Adjusted Body Weight IBW: 135 lb/61 kg Recent Weight Change Unknown Weight Status Appropriate Gastrointestinal Symptoms Nausea Food Allergies No - Per past admission records Usual Diet At Home Unknown Skin Integrity Comment: Per skin assessment 08/05/16 - Davey scale: 21; medial abdomen incision and right abdominal GIANCARLO drain. Current % PO Negligible (<25%) Estimated Energy Expenditure (kcals/day) 3352-2096 kcal/day (BEE x 1-1.2 for maintenance) Estimated Protein Required (g/day) 73-79 gm/day (1.2-1.3 gm/kg IBW for ESRD on HD) Estimated Fluid Required (l/day) Per MD for ESRD Problem/Etiology/Signs/Symptoms Inadequate PO intakes related to recent decline in appetite, abdominal pain, and intractable nausea and vomiting as evidenced by PO records average 63% x12 meals, x1 meal refusal, and recent NPO status. *ongoing Increased protein needs related to maintenance hemodialysis as evidenced by increased estimated protein needs for ESRD on hemodialysis. *ongoing Expected Outcomes/Goals 1. Monitor advancement of diet with goal of meeting at least 50% of estimated needs with acceptable tolerance 2. Labs trending within normal limits 3. Maintain weight status 4. Maintain skin integrity 5. Maintain normal GI function 6. Controlled abdominal pain and nausea Dietitian Recommendations * Continue renal standard diet per MD order * Encourage PO intakes during meal times Monitor/Evaluation Comment RD reviewed/approved internet marketing specialist's note. MYLENE PETERSON. Follow Up High Risk: F/U in 2-3 days Follow Up By August 08, 2016 Alert Not Indicated Addendum: 08/05/16 at [address] MYLENE reviewed/approved internet marketing specialist's note. MYLENE PETERSON
--- NOTE | 2016-08-05 17:30 | NUR ---
NOTE PATIENT REFUSED INSULIN AND HYDRALAZINE, EDUCATED THE PATIENT THAT THESE MEDICATIONS ARE IMPORTANT FOR THE PATIENT AND SHE STILL REFUSED.
--- NOTE | 2016-08-05 18:48 | NUR ---
1200 NOTE PATIENT RESTING COMFORTABLY AT THIS TIME. COMPLAINTS OF PAIN AT 8, PATIENT HAD DILAUDID ADMINISTERED TO CONTROL PAIN. PATIENT HAD SURGERY YESTERDAY. GIANCARLO DRAIN IN PLACE. NO NOTABLE SIGNS OF DISTRESS AT THIS TIME. PATIENTS BED IN LOWEST POSITION, CALL LIGHT WITHIN REACH, AND 2 SIDE RAILS ARE UP FOR SAFETY. PATIENT IS ENCOURAGED TO CALL WHEN GETTING OUT OF BED DUE TO INCREASED RISK OF FALL AFTER PAIN MEDICATION. WILL CONTINUE TO MONITOR PATIENT FOR CHANGES IN STATUS.
--- NOTE | 2016-08-05 18:49 | NUR ---
1400 NOTE PATIENT RESTING COMFORTABLY AT THIS TIME. COMPLAINTS OF PAIN AT 8/10, PATIENT CANNOT HAVE DILAUDID ADMINISTERED TO CONTROL PAIN, PATIENTS BLOOD PRESSURE LOW, AND PATIENT IS HAVING DIALYSIS. PATIENT HAD SURGERY YESTERDAY. GIANCARLO DRAIN IN PLACE. NO NOTABLE SIGNS OF DISTRESS AT THIS TIME. PATIENTS BED IN LOWEST POSITION, CALL LIGHT WITHIN REACH, AND 2 SIDE RAILS ARE UP FOR SAFETY. PATIENT IS ENCOURAGED TO CALL WHEN GETTING OUT OF BED DUE TO INCREASED RISK OF FALL AFTER PAIN MEDICATION. WILL CONTINUE TO MONITOR PATIENT FOR CHANGES IN STATUS.
--- NOTE | 2016-08-05 18:52 | NUR ---
1600 NOTE PATIENT RESTING COMFORTABLY AT THIS TIME. COMPLAINTS OF PAIN AT 8/10. PATIENT HAD SURGERY YESTERDAY. GIANCARLO DRAIN IN PLACE. NO NOTABLE SIGNS OF DISTRESS AT THIS TIME. PATIENTS BED IN LOWEST POSITION, CALL LIGHT WITHIN REACH, AND 2 SIDE RAILS ARE UP FOR SAFETY. PATIENT IS ENCOURAGED TO CALL WHEN GETTING OUT OF BED DUE TO INCREASED RISK OF FALL AFTER PAIN MEDICATION. WILL CONTINUE TO MONITOR PATIENT FOR CHANGES IN STATUS.
--- NOTE | 2016-08-05 18:53 | NUR ---
1800/CLOSING NOTE WAITING TO GIVE REPORT TO ERGONOMICS TECHNICIAN NURSE. PATIENT RESTING COMFORTABLY AT THIS TIME. COMPLAINTS OF PAIN AT 8/10, PATIENT WOULD LIKE MEDICATION SOON DILAUDID IS AVAILABLE. PATIENT HAD SURGERY YESTERDAY, AND DRESSING IS CHANGED BY DR. DIAZ. 4X4 WITH OP SITE DRESSING. NO NOTABLE SIGNS OF DISTRESS AT THIS TIME. PATIENTS BED IN LOWEST POSITION, CALL LIGHT WITHIN REACH, AND 2 SIDE RAILS ARE UP FOR SAFETY. PATIENT IS ENCOURAGED TO CALL WHEN GETTING OUT OF BED DUE TO INCREASED RISK OF FALL AFTER PAIN MEDICATION. WILL CONTINUE TO MONITOR PATIENT FOR CHANGES IN STATUS.
--- NOTE | 2016-08-05 19:55 | NUR ---
PAIN: PATIENT WOKE UP ,CALLED FOR DILAUDID IV. 2MG IV GIVEN BY AMANDA GREGG . BP STABLE.
--- NOTE | 2016-08-05 21:45 | NUR ---
PAIN/COMFORT: PATIENT CALLED FOR PAIN MEDS. TOLD PATIENT ITS DUE AT 2355HR. TOLD HER CAN HAVE AT LEAST 1/2HR EARLY. OFFERED NORCO 10MG PO BUT SAID IT DOES NOT WORK WHEN USING AT HOME. EXPLAIN IT WORKS HERE SINCE TAKING IN BETWEEN DILAUDID. INSIST SAYING IN A ANGRY WORD IT DOES NOT WORK.ASKED FOR OPERATING ROOM ORDERLY ,HALLIE RN SPOKE TO PATIENT.RE EXPLAIN TO HER ITS TOO EARLY FOR IV DILAUDID ,OFFERED NORCO WELL. PATIENT SAID IT DOES NOT WORK. TOLD HER HAS TO WAIT FOR IV DUE.NO RESPONSE FROM PATIENT.
--- NOTE | 2016-08-05 22:00 | NUR ---
REFUSE HEPARIN SUBCUT,TOPROL,HYDRALAZINE THIS TIME.
[2016-08-05] MEDS: HYDROcodone/ACETAMIN 10-325 MG TAB PO PRN ×2 (22:05→22:09)
[2016-08-05] MEDS: INSULIN ASPART 100 UNITS/ML, 10 ML VIAL (NovoLOG) SUBCUT PRN (22:17)
--- NOTE | 2016-08-05 23:00 | NUR ---
BP 128/81 TEMP 99.4 PULSE 98 SAT 97%.
--- NOTE | 2016-08-05 23:38 | NUR ---
PAIN: PATIENT CRYING DUE TO POST OP PAIN ,LEVEL 8/10. HYDROMORPHONE 2MG IV GIVEN SLOWLY. IV SITE CLEAR. REINSTRUCTED IMPORTANCE OF TAKING PO PAIN MEDS IN BETWEEN IV MED.
--- NOTE | 2016-08-06 01:40 | NUR ---
BOWEL/PAIN: PATIENT CALLED HAS LOOSE MODERATE FOWL SMELL STOOL. HYGIENE DONE BY RN AND BLOWER AND COMPRESSOR ASSEMBLER. PATIENT ASKED FOR DILAUDID IV. TOLD HER ITS 2 HRS EARLY .AGREED TO TAKE NORCO 10MG PO.AT 0144HR.PATIENT REQUESTING TO CALL MD FOR MORE DILAUDID, INFORMED SENIOR EXAMINER.
[2016-08-06] MEDS: HYDROcodone/ACETAMIN 10-325 MG TAB PO PRN ×2 (01:44→06:09)
[2016-08-06] MEDS: LORazepam 2 MG/ML VIAL IVP PRN ×3 (02:16→16:57)
--- NOTE | 2016-08-06 02:16 | NUR ---
ANXIETY: PATIENT TEARFUL. ATIVAN 2MH IV GIVEN BY AMANDA GREGG.
[2016-08-06] MEDS: HYDROmorphone 2 MG/ML VIAL IVP PRN ×5 (03:39→22:40)
--- NOTE | 2016-08-06 03:40 | NUR ---
PAIN: PATIENT CALLED ASKING FOR HER DILAUDID IV. 2MG IV GIVEN SLOWLY BY RN CRISTINO. BP STABLE.
[2016-08-06 04:19] VITALS: BP 104/53; PULSE 100; RESP 16; TEMP 99; O2SAT 90
[2016-08-06] MEDS: hydrALAZINE HCL 25 MG TABLET PO SCH ×3 (06:00→22:39)
--- NOTE | 2016-08-06 06:10 | NUR ---
PAIN: KEEP CALLING FOR IV DILAUDID, DROWSY. TOLD HER IV DILAUDID IS DUE IN 2 HRS. TOLD HER 3 TIMES. HYDROMORPHONE 10MG PO GIVEN. AFTER MULTIPLE EXPLANATION.
--- NOTE | 2016-08-06 06:40 | NUR ---
closing: patient sleeping this time after norco 10mg po.discussed need use of incentive spirometer and scd,had been refusing it. had been asking for iv dilaudid 2 hrs early. did explain time frame needed, has anxiety ,sleepy and forgets informations being told. call light within reach,bed in low position bed alarm on. all needs were attended. no acute distress. bp meds refused ,said does not want bp to go down then unable to have pain med iv.
[2016-08-06 07:38] LABS: BASOPHILS # (AUTO) 0.1 K/uL (0.0-0.2); BASOPHILS % (AUTO) 0.4 % (0.0-2.0); EOSINOPHILS # (AUTO) 0.1 K/uL (0.0-0.4); HEMOGLOBIN 8.4 g/dL (12.0-16.0); LYMPHOCYTES # (AUTO) 1.5 K/uL (1.0-5.5); LYMPHOCYTES % (AUTO) 11.3 % (20.5-51.5); MEAN CORPUSCULAR HEMOGLOBIN 30 pg (27-31); MEAN CORPUSCULAR HGB CONC 32 % (32-36); MEAN CORPUSCULAR VOLUME 93 fL (79.0-98.0); MONOCYTES # (AUTO) 1.2 K/uL (0.0-1.0); MONOCYTES % (AUTO) 9.2 % (1.7-9.3); NEUTROPHILS # (AUTO) 10.7 K/uL (1.8-7.7); NEUTROPHILS % (AUTO) 78.1 % (40.0-70.0); PLATELET COUNT (AUTO) 204 K/uL (130-430); RED CELL DISTRIBUTION WIDTH 14.6 % (9.0-15.0); WHITE BLOOD COUNT (AUTO) 13.6 K/uL (4.8-10.8)
[2016-08-06 07:52] LABS: ALBUMIN 2.6 g/dL (3.4-4.8); POTASSIUM 4.3 mmol/L (3.5-5.1); TOTAL BILIRUBIN 0.9 mg/dL (0.0-1.0)
[2016-08-06 08:00] VITALS: BP 127/52; PULSE 95; RESP 18; TEMP 99.7; O2SAT 95
--- NOTE | 2016-08-06 08:11 | NUR ---
INSTRUCTION ON USE OF INCENTIVE SPIROMETER. REFUSED. PATIENT THOUGHT SHE WAS IN [facility] AND COULD NOT RECALL DAY. DID NOT WANT MOTOR POOL CLERK TO VIEW SURGICAL SITES. SITES APPEAR DRY AND INTACT. NOTED CONFUSION LIKELY TO DILAUDED MEDICATION. PATIENT DENIES.
[2016-08-06 08:44] LABS: CALCIUM 7.9 mg/dL (8.4-11.0)
[2016-08-06 08:54] LABS: CREATININE 7.73 mg/dL (0.55-1.30)
[2016-08-06] MEDS: BUMETANIDE 1 MG TABLET PO SCH ×2 (09:00→22:39)
[2016-08-06] MEDS: cefTRIAXone 1 GM in D5W 50 ML IV SCH (09:29)
[2016-08-06 09:30] LABS: TOTAL PROTEIN, SERUM 5.6 g/dL (6.4-8.3)
[2016-08-06] MEDS: HEPARIN SODIUM,PORCINE 5000 UNITS/ML VIAL SUBCUT SCH ×2 (09:33→09:44)
[2016-08-06] MEDS: NIFEDIPINE 60 MG TABLET.SA (PROCARDIA XL 60 MG) PO SCH (09:34)
[2016-08-06] MEDS: METOPROLOL SUCCINATE 50 MG TAB.SR.24H (TOPROL XL) PO SCH ×2 (09:34→22:38)
[2016-08-06] MEDS: DOCUSATE SODIUM 250 MG CAPSULE PO SCH ×2 (09:35→22:39)
--- NOTE | 2016-08-06 09:50 | NUR ---
ROUNDS TO PATIENT BY SURGEON. ASKS UPKEEP MECHANIC TO CHANGE DRESSING. PATIENT REFUSES AT THIS TIME. GIVEN INSTRUCTION ON HEPARIN FOR BLOOD CLOTS. REFUSES. ASKING FOR PAIN MEDICATION. NOTIFIED OF NEXT TIME PATIENT MAY HAVE PAIN MED. OFFERED ATIVAN FOR ANXIETY. REFUSED BY PATIENT. WILL CONTINUE TO MONITOR.
--- NOTE | 2016-08-06 11:18 | NUR ---
Patient request for pain meds again. Patient education about anxiety, offered ativan. Patient agrees with med.
--- NOTE | 2016-08-06 11:30 | NUR ---
CONSULTATION WAS CALLED FOR DR valentin [phone]
--- NOTE | 2016-08-06 11:33 | NUR ---
and spoke to Claude [phone]
[2016-08-06 11:36] VITALS: BP 101/59; PULSE 96; RESP 19; TEMP 99; O2SAT 96
--- NOTE | 2016-08-06 13:21 | NUR ---
ASSIST OF PATIENT BACK TO BED. PATIENT SAYS SHE WAS CALLING FOR A LONG TIME. THIS WAS FIRST CALL AUTOMATION QA LEAD RECEIVED AFTER CALL AT 1027 FOR PAIN MED EARLY ADMINISTRATION. AT THIS TIME ATIVAN WAS AGREED UPON AND DURING LAST ROUND PATIENT WAS SIDE LYING IN BED. STILL SAYS "LATER" FOR DRESSING CHANGE. EDUCATION THAT DRAINAGE COMING FROM SITE OF DSG. PATIENT STATES SHE IS IN PAIN AND CANNOT FEEL MEDICINE. RESTING IN BACK IN BED AFTER AUTOMATION QA LEAD ASSIST WITH BUSINESS CONTINUITY DIRECTOR TO CHANGE LINENS OF BED AND UNDERPAD. NO DRAINAGE OTHER THAN A FEW SPOTS ON GOWN AND SATURATION OF 50% OF DRESSING. WILL CONTINUE TO MONITOR. PATIENT ASKING FOR MORE ATIVAN AT THIS TIME. EDUCATION ON MEDICATION ALREADY GIVEN AND TOO EARLY TO TAKE NEXT DOSE.
--- NOTE | 2016-08-06 14:01 | NUR ---
DAVEY SCALE EVALUATION: Patient evaluated for a low Davey score of 16. Patient was awake, alert, confused, and received in a [place] bed with an Atmos-Air 9000 mattress. Patient is able to turn in bed independently. Skin is Good (-); Incision present form open Cholecystectomy. Recommend encourage and assist patient as needed with repositioning every 2 hours with pillow support, and off-load pressure areas with pillows for pressure re-distribution. Perform skin care and monitor skin integrity Q shift.
--- NOTE | 2016-08-06 15:06 | NUR ---
Patient sleeping. Not rousable to light touch and voice. Will continue to monitor for pain.
[2016-08-06 15:30] VITALS: BP 120/71; PULSE 97; RESP 19; TEMP 98.7; O2SAT 93
--- NOTE | 2016-08-06 16:59 | NUR ---
Rounds to patient. Allows personal lines underwriter to give ativan for anxiety. Wants pain medication at this time. Allowed personal lines underwriter to change dressing on abdomen. GIANCARLO drain output 22ml. Needs met at this time.
[2016-08-06] MEDS ORDERED: GENTAMICIN 120 MG/ ISO-OSM 100 ML PREMIX IV ONE (18:00)
--- NOTE | 2016-08-06 18:26 | NUR ---
Patient notes pain 11/11. Patient aunt called at this time. Doctor Maribell rounds last hour. Request admin of dilauded for severe pain. Medication given.
[2016-08-06 20:13] VITALS: BP 132/68; PULSE 96; RESP 18; TEMP 97.8; O2SAT 94
--- NOTE | 2016-08-06 20:48 | NUR ---
Patient awake assist out of bed to rest room c/o general pain fall measures implemented , GIANCARLO drain intact to right lower abdomen Right chest HDX catheter intact .
--- NOTE | 2016-08-06 20:50 | NUR ---
HEMODIALYSIS orders given to road gang supervisor , HDX for this AM .
[2016-08-07] VITALS (7 sets, daily range): BP systolic 119–148; BP diastolic 70–87; PULSE 91–99; RESP 18–21; TEMP 97.5–100.4; O2SAT 93–97
[2016-08-07] MEDS: HYDROmorphone 2 MG/ML VIAL IVP PRN ×6 (02:36→22:07)
[2016-08-07] MEDS: ONDANSETRON HCL 4 MG/2 ML VIAL IVP PRN (02:36)
--- NOTE | 2016-08-07 02:43 | NUR ---
ZOFRAN 4 MG IVP GIVEN FOR GI UP SET CONTINUE TO MONITOR .
--- NOTE | 2016-08-07 02:44 | NUR ---
DILAUDID 2 MG IVP given for general pain 10/11 & helpful .
--- NOTE | 2016-08-07 05:21 | NUR ---
Hourly Rounding patient resting HOB elevated respirations regular also unlabored fall measures implemented & effective / .
[2016-08-07] MEDS: hydrALAZINE HCL 25 MG TABLET PO SCH ×4 (06:07→21:53)
[2016-08-07 06:57] LABS: BASOPHILS % (AUTO) 0.2 % (0.0-2.0); EOSINOPHILS # (AUTO) 0.1 K/uL (0.0-0.4); EOSINOPHILS % (AUTO) 0.7 % (0.0-4.0); HEMATOCRIT 25.3 % (36-48); HEMOGLOBIN 8.5 g/dL (12.0-16.0); LYMPHOCYTES # (AUTO) 1.4 K/uL (1.0-5.5); LYMPHOCYTES % (AUTO) 9.2 % (20.5-51.5); MEAN CORPUSCULAR HEMOGLOBIN 31 pg (27-31); MEAN CORPUSCULAR HGB CONC 34 % (32-36); MEAN CORPUSCULAR VOLUME 93 fL (79.0-98.0); MONOCYTES % (AUTO) 6.5 % (1.7-9.3); NEUTROPHILS # (AUTO) 13.2 K/uL (1.8-7.7); NEUTROPHILS % (AUTO) 83.4 % (40.0-70.0); PLATELET COUNT (AUTO) 208 K/uL (130-430); RED BLOOD CELL COUNT(AUTO) 2.71 MIL/uL (4.2-6.2); RED CELL DISTRIBUTION WIDTH 14.4 % (9.0-15.0); WHITE BLOOD COUNT (AUTO) 15.7 K/uL (4.8-10.8)
[2016-08-07 07:19] LABS: CALCIUM 8.9 mg/dL (8.4-11.0); CREATININE 6.07 mg/dL (0.55-1.30); POTASSIUM 4.2 mmol/L (3.5-5.1)
--- NOTE | 2016-08-07 08:05 | NUR ---
Nutrition Update Davey Scale 18 noted.(08/06/162055) Pt admitted for: Right sided Pylonephritis Diet: Renal Standard 2gm Na 3 gm K 1 gm Phosphorus BMI: 20.7 kg/m2 RD to follow per nutrition care standards.
[2016-08-07] MEDS: HEPARIN SODIUM,PORCINE 5000 UNITS/ML VIAL SUBCUT SCH ×3 (09:00→21:00)
[2016-08-07] MEDS: NIFEDIPINE 60 MG TABLET.SA (PROCARDIA XL 60 MG) PO SCH (10:39)
[2016-08-07] MEDS: METOPROLOL SUCCINATE 50 MG TAB.SR.24H (TOPROL XL) PO SCH ×2 (10:39→21:53)
[2016-08-07] MEDS: cefTRIAXone 1 GM in D5W 50 ML IV SCH (10:42)
[2016-08-07] MEDS: DOCUSATE SODIUM 250 MG CAPSULE PO SCH ×2 (10:43→21:52)
[2016-08-07] MEDS: BUMETANIDE 1 MG TABLET PO SCH ×2 (10:43→21:52)
--- NOTE | 2016-08-07 11:07 | NUR ---
Patient request for pain medication 15 minutes early. Requests to talk to charge nurse. V Belt Skiver notified pt charge nurse will be notified but likely the interval of time between pain med administation will not change. Participated in incentive spirometer today. Call from patient family re: going to see pain specialist and getting on an outpatient dialysis schedule. Patient aware of plan for dialysis today. Alert and oriented to person, place, time (thought it was 5/5) and event.
[2016-08-07] MEDS: LORazepam 2 MG/ML VIAL IVP PRN ×2 (12:44→17:16)
--- NOTE | 2016-08-07 14:00 | NUR ---
Patient up to commode with assist at this time. Says she wants more pain meds. Also notes she wants to d/c tommorow. Dialysis nurse call to arrive in pm, 1630.
--- NOTE | 2016-08-07 14:58 | NUR ---
Rounds to patient. Needs met at this time. Given prn as requested. Patient resting on side. Used incentive spirometer as directed. Refused to change underpad and bed linens which were soiled. Agreed to gown change.
--- NOTE | 2016-08-07 15:25 | NUR ---
Rounds to patient. Given juice for complaint of thirst. Offered to feed the patient. She refused. Says she feels nausea.
--- NOTE | 2016-08-07 16:09 | NUR ---
Rounds to patient. Refused incentive spirometry use at this time. Drowsy during teaching.
--- NOTE | 2016-08-07 17:24 | NUR ---
Admin of ativan at request of patient for anxiety. Says she wants more pain medication. Offered norco. Refused. Patient dialysis nurse directs administration of apresoline, 50mg. Given.
[2016-08-07] MEDS: INSULIN ASPART 100 UNITS/ML, 10 ML VIAL (NovoLOG) SUBCUT PRN ×2 (18:04→22:11)
--- NOTE | 2016-08-07 18:08 | NUR ---
Paged Dr Funez, [facility]
[2016-08-07] MEDS ORDERED: HEPARIN SODIUM, PORCINE 10,000 UNITS/ 10 ML VIAL IV ONE (18:30)
--- NOTE | 2016-08-07 19:23 | NUR ---
HANDOFF REPORT TO NIGHT NURSE. INFORMATION ABOUT LAST DOSE OF DILAUDED AND NEXT DOSE AVAILABLE ANYTIME. ALSO UPDATED ABOUT FAMILY MEMBER PHONE CALL RE: [facility] MANAGEMENT AND PATIENT ADMISSION TO [place]. ON DIALYSIS AT THIS TIME.
--- NOTE | 2016-08-07 20:12 | NUR ---
HEMODIALYSIS @ the bedside complete , patient resting this hour skin dry warm chest movement symmetrical assist as needed .
--- NOTE | 2016-08-08 | NUR ---
DILAUDID 2 MG IVP administer for general pain 10/11 and helpful .
[2016-08-08 00:09] VITALS: BP 126/78; PULSE 93; RESP 21; TEMP 98.7; O2SAT 94
--- NOTE | 2016-08-08 01:19 | NUR ---
GIANCARLO drain out via MD CDI dressing lower right abdomen area no active bleeding noted .
--- NOTE | 2016-08-08 01:22 | NUR ---
HOURLY Rounding patient resting this hour assist encourage position change skin dry warm tolerated / .
[2016-08-08] MEDS: HYDROmorphone 2 MG/ML VIAL IVP PRN ×3 (01:58→09:57)
[2016-08-08 04:03] VITALS: BP 116/64; PULSE 92; RESP 19; TEMP 98.6; O2SAT 90
--- NOTE | 2016-08-08 04:28 | NUR ---
New IV 22 Gauge left F/A re start procedure tolerated .
--- NOTE | 2016-08-08 05:53 | NUR ---
DILAUDID 2 MG IVP given for pain 10/11 & helpful .
[2016-08-08] MEDS: hydrALAZINE HCL 25 MG TABLET PO SCH (06:36)
[2016-08-08] MEDS: INSULIN ASPART 100 UNITS/ML, 10 ML VIAL (NovoLOG) SUBCUT PRN (06:39)
[2016-08-08 07:36] VITALS: BP 153/82; PULSE 92; RESP 18; TEMP 98.2; O2SAT 97
--- NOTE | 2016-08-08 07:43 | NUR ---
Rounds to patient. appliance service technician present for blood draw. Patient notes pain on left leg during blood pressure cuff inflation. Given prn for pain prior to change of shift and new IV last shift.
[2016-08-08 08:12] LABS: BASOPHILS % (AUTO) 0.1 % (0.0-2.0); EOSINOPHILS # (AUTO) 0.4 K/uL (0.0-0.4); EOSINOPHILS % (AUTO) 2.8 % (0.0-4.0); HEMATOCRIT 23.8 % (36-48); HEMOGLOBIN 7.9 g/dL (12.0-16.0); LYMPHOCYTES # (AUTO) 1.1 K/uL (1.0-5.5); LYMPHOCYTES % (AUTO) 8.5 % (20.5-51.5); MEAN CORPUSCULAR HEMOGLOBIN 31 pg (27-31); MEAN CORPUSCULAR HGB CONC 33 % (32-36); MEAN CORPUSCULAR VOLUME 93 fL (79.0-98.0); MONOCYTES # (AUTO) 0.9 K/uL (0.0-1.0); MONOCYTES % (AUTO) 6.5 % (1.7-9.3); NEUTROPHILS # (AUTO) 10.9 K/uL (1.8-7.7); NEUTROPHILS % (AUTO) 82.1 % (40.0-70.0); PLATELET COUNT (AUTO) 213 K/uL (130-430); RED BLOOD CELL COUNT(AUTO) 2.57 MIL/uL (4.2-6.2); RED CELL DISTRIBUTION WIDTH 14.3 % (9.0-15.0); WHITE BLOOD COUNT (AUTO) 13.3 K/uL (4.8-10.8)
[2016-08-08 08:13] LABS: CALCIUM 8.7 mg/dL (8.4-11.0); CREATININE 3.74 mg/dL (0.55-1.30); POTASSIUM 3.9 mmol/L (3.5-5.1)
[2016-08-08 08:29] LABS: IRON (SERUM) 22 mcg/dL (37-145); TOTAL IRON BIND. CAPACITY 127 ug/dL (250-450)
[2016-08-08] MEDS: HEPARIN SODIUM,PORCINE 5000 UNITS/ML VIAL SUBCUT SCH (09:00)
[2016-08-08] MEDS: DOCUSATE SODIUM 250 MG CAPSULE PO SCH (09:57)
[2016-08-08] MEDS: METOPROLOL SUCCINATE 50 MG TAB.SR.24H (TOPROL XL) PO SCH (09:57)
[2016-08-08] MEDS: cefTRIAXone 1 GM in D5W 50 ML IV SCH (09:58)
[2016-08-08] MEDS: NIFEDIPINE 60 MG TABLET.SA (PROCARDIA XL 60 MG) PO SCH (09:58)
[2016-08-08] MEDS: BUMETANIDE 1 MG TABLET PO SCH (09:58)
[2016-08-08] MEDS ORDERED: DOCU250C PO (10:21)
[2016-08-08] MEDS ORDERED: ONDA4TAB22 PO (10:21)
[2016-08-08] MEDS ORDERED: TRAM50TA92 PO (10:27)
--- NOTE | 2016-08-08 10:30 | NUR ---
Rounds from surgeon. Discussion for keeping dialysis catheter vs. permanent placement for dialysis. Says she will go and follow up with surgeon. Also notes she is going to keep site of surgery clean and dry. May shower. Place clean bandaids when finished.
--- NOTE | 2016-08-08 11:00 | NUR ---
Rounds with Doctor Christ Yusuf DO. Discussed seeing pain management and transition of care instruction. Also notified patient to follow up with surgeon. Patient verbalized understanding.
[2016-08-08 11:34] VITALS: BP 133/77; PULSE 90; RESP 20; TEMP 99.3; O2SAT 94
[2016-08-08 11:47] VITALS: BP 117/75; PULSE 91; RESP 18; TEMP 99.5; O2SAT 97
--- NOTE | 2016-08-08 12:10 | NUR ---
D/C Patient Patient given medication reconciliation form and D/C instructions. Exit Care provided. Patient verbalized understanding. MD discussed with patient the results and treatment provided. Ambulatory with steady gait for discharge to home. Patient in stable condition, ID band removed. IV catheter removed, intact and dressing applied, no active bleeding. Rx given. Patient educated on pain management. All belongings sent with patient. Given phone number for Doctor Atil follow up. Already knows to call her pain management physician for follow up.
[2016-08-08] MEDS ORDERED: EPOETIN ALFA 3,000 UNITS/ML VIAL SUBCUT SCH (17:00)
--- NOTE | 2016-08-16 13:29 | NUR ---
Discharge Follow Up Phone Call: Quality Control Engineering Technician called and spoke with pt ([phone]) on 08/10/16, but pt requested for Quality Control Engineering Technician to call back at a later time. Quality Control Engineering Technician called and left a voice mail for pt and pt's ([phone]) on 08/13/16. FLIGHT TEST MECHANIC called and spoke with pt today. Pt states that she is doing well; pt's prescriptions have been filled; there are no questions regarding discharge or medication instructions; pt followed up with her PCP on 08/10/16 and her pain management Doctor on 08/12/16; pt is going to contact Dr. Wilhelm regarding scheduling a follow up appointment with him. FLIGHT TEST MECHANIC offered to assist pt with scheduling a follow up appointment with Dr. Wilhelm, but pt states that she will schedule the follow up appointment. Pt did not express any other needs or concerns and denied the need for additional follow up at this time. No further follow up phone calls required at this time.
== END 2016-08-08 12:10 | disposition home or self-care (01) | DRG 853 ==
LOC: SED 06:40 → STU 09:05 → SMU 07-31 18:32
PROVIDERS: ADMIT General Practice; ATTEND General Practice
PROC: 5A1D60Z (ICD-10-PCS; 2016-07-29)
PROC: 0FT44ZZ Resection of Gallbladder, Percutaneous Endoscopic Approach (ICD-10-PCS; principal; 2016-08-04 15:00)
DX: A41.9 Sepsis, unspecified organism (principal); N17.0 Acute kidney failure with tubular necrosis; N18.6 End stage renal disease; E43 Unspecified severe protein-calorie malnutrition; K80.10 Calculus of gallbladder with chronic cholecystitis without obstruction; I13.2 Hypertensive heart and chronic kidney disease with heart failure and with stage 5 chronic kidney disease, or end stage renal disease; E87.1 Hypo-osmolality and hyponatremia; N12 Tubulo-interstitial nephritis, not specified as acute or chronic; M54.5 Low back pain; I50.9 Heart failure, unspecified; E10.65 Type 1 diabetes mellitus with hyperglycemia; E10.22 Type 1 diabetes mellitus with diabetic chronic kidney disease; E10.21 Type 1 diabetes mellitus with diabetic nephropathy; D63.1 Anemia in chronic kidney disease; B96.20 Unspecified Escherichia coli [E. coli] as the cause of diseases classified elsewhere; F32.9 Major depressive disorder, single episode, unspecified; G89.4 Chronic pain syndrome; K29.70 Gastritis, unspecified, without bleeding; K59.00 Constipation, unspecified; Z99.2 Dependence on renal dialysis; Z87.442 Personal history of urinary calculi; Z87.440 Personal history of urinary (tract) infections; Z79.4 Long term (current) use of insulin; Z88.8 Allergy status to other drugs, medicaments and biological substances; Z88.6 Allergy status to analgesic agent; Z91.040 Latex allergy status; Z68.20 Body mass index [BMI] 20.0-20.9, adult
CPT/HCPCS: 36415; 71010; 76700-TC; 78226; 80048; 80053; 80074; 80307; 81000-TC; 81025; 82150-TC; 82962; 83540-TC; 83550-TC; 83605; 83690-TC; 83735-TC; 84703; 85025; 87040-TC; 87081; 87086; 87186-TC; 88304; 90935; 90937; 93005; 96365; 96375; 96376; 99285; A9537; C1727; J0360; J0690; J0696; J0744; J0885; J1170; J1200; J1580; J1644; J1815; J1885; J2060; J2250; J2405; J2704; J2765; J3010; J3465; J3490; J7030; J7050; J7060

== ENCOUNTER 2016-10-09 08:47 | Emergency (ER) | payer OTHER ==
[~2016-10-09] VITALS: Ht 170.2 cm; Wt 61.2 kg
[~2016-10-09 08:47] MED LIST changes: -BUSP10TA3 PO; -CYM30 PO; -ERYT500T74 PO; -FURO-150 PO; -HYDR-4039 PO; -HYDR2TAB34 PO; -INSU100V11 SQ; -LON10 PO; -LORA-259 PO; -METO-290 PO; -NIFE-2 PO; -NIFE10CA2 PO; +ONDA4TAB22 PO; -OXYC10TA71 PO; -PRO40 PO; +TRAM50TA92 PO
[2016-10-09 08:53] VITALS: BP_SYST 211
[2016-10-09] MEDS ORDERED: NITROGLYCERIN 0.4 MG TAB.SUBL SL ONE (09:15)
[2016-10-09] MEDS ORDERED: NIFEdipine 10 MG CAPSULE PO ONE (09:15)
[2016-10-09 09:27] LABS: BASOPHILS % (AUTO) 0.1 % (0.0-2.0); EOSINOPHILS # (AUTO) 0.1 K/uL (0.0-0.4); EOSINOPHILS % (AUTO) 0.8 % (0.0-4.0); HEMATOCRIT 34.9 % (36-48); HEMOGLOBIN 11.2 g/dL (12.0-16.0); LYMPHOCYTES # (AUTO) 1.3 K/uL (1.0-5.5); LYMPHOCYTES % (AUTO) 18.3 % (20.5-51.5); MEAN CORPUSCULAR HEMOGLOBIN 30 pg (27-31); MEAN CORPUSCULAR HGB CONC 32 % (32-36); MEAN CORPUSCULAR VOLUME 95 fL (79.0-98.0); MONOCYTES # (AUTO) 0.3 K/uL (0.0-1.0); NEUTROPHILS # (AUTO) 5.5 K/uL (1.8-7.7); NEUTROPHILS % (AUTO) 76.8 % (40.0-70.0); PLATELET COUNT (AUTO) 206 K/uL (130-430); RED BLOOD CELL COUNT(AUTO) 3.69 MIL/uL (4.2-6.2); RED CELL DISTRIBUTION WIDTH 13.6 % (9.0-15.0); WHITE BLOOD COUNT (AUTO) 7.2 K/uL (4.8-10.8)
[2016-10-09 09:37] LABS: CALCIUM 8.9 mg/dL (8.4-11.0); CREATININE 4.88 mg/dL (0.55-1.30); POTASSIUM 3.8 mmol/L (3.5-5.1)
[2016-10-09 09:42] LABS: ALBUMIN 3.5 g/dL (3.4-4.8); INR 1.1 (0.8-1.2); PROTHROMBIN TIME 12.2 SECS (9.5-12.5); TOTAL BILIRUBIN 0.9 mg/dL (0.0-1.0); TOTAL PROTEIN, SERUM 7.1 g/dL (6.4-8.3)
[2016-10-09] MEDS ORDERED: HYDROcodone/ACETAMIN 10-325 MG TAB PO ONE (10:00)
[2016-10-09] MEDS ORDERED: ONDANSETRON 4 MG ODT TAB PO ONE (10:00)
[2016-10-09 15:52] VITALS: BP_SYST 130
== END 2016-10-09 15:52 | disposition home or self-care (01) ==
LOC: SED 08:48
DX: I16.0 Hypertensive urgency (principal); R10.9 Unspecified abdominal pain; R11.2 Nausea with vomiting, unspecified; I13.2 Hypertensive heart and chronic kidney disease with heart failure and with stage 5 chronic kidney disease, or end stage renal disease; E10.22 Type 1 diabetes mellitus with diabetic chronic kidney disease; N18.6 End stage renal disease; I50.9 Heart failure, unspecified; Z99.2 Dependence on renal dialysis; Z91.040 Latex allergy status; Z88.5 Allergy status to narcotic agent; Z88.8 Allergy status to other drugs, medicaments and biological substances; Z79.4 Long term (current) use of insulin; Z79.899 Other long term (current) drug therapy
CPT/HCPCS: 36415; 71010; 74176; 80053; 82150; 82550; 82962; 83690; 83880; 84484; 84703; 85025; 85610; 85730; 93005; 99285; Q0162

== ENCOUNTER 2016-10-26 06:48 | Emergency (ER) | payer OTHER ==
[~2016-10-26] VITALS: Ht 170.2 cm; Wt 24.9 kg
[2016-10-26 06:53] VITALS: BP_SYST 194
[2016-10-26 07:55] LABS: BASOPHILS % (AUTO) 0.5 % (0.0-2.0); EOSINOPHILS # (AUTO) 0.1 K/uL (0.0-0.4); EOSINOPHILS % (AUTO) 2.4 % (0.0-4.0); HEMATOCRIT 35.8 % (36-48); HEMOGLOBIN 11.7 g/dL (12.0-16.0); LYMPHOCYTES # (AUTO) 1.2 K/uL (1.0-5.5); LYMPHOCYTES % (AUTO) 21.1 % (20.5-51.5); MEAN CORPUSCULAR HEMOGLOBIN 31 pg (27-31); MEAN CORPUSCULAR HGB CONC 33 % (32-36); MEAN CORPUSCULAR VOLUME 94 fL (79.0-98.0); MONOCYTES # (AUTO) 0.4 K/uL (0.0-1.0); MONOCYTES % (AUTO) 6.3 % (1.7-9.3); NEUTROPHILS % (AUTO) 69.7 % (40.0-70.0); PLATELET COUNT (AUTO) 177 K/uL (130-430); RED BLOOD CELL COUNT(AUTO) 3.84 MIL/uL (4.2-6.2); RED CELL DISTRIBUTION WIDTH 13.6 % (9.0-15.0); WHITE BLOOD COUNT (AUTO) 5.7 K/uL (4.8-10.8)
[2016-10-26] MEDS ORDERED: ONDANSETRON HCL 4 MG/2 ML VIAL IVP ONE (08:15)
[2016-10-26] MEDS ORDERED: HYDROmorphone 1 MG INJ. 1 MG/ML AMPUL IVP ONE ×2 (08:15→09:15)
[2016-10-26 08:27] LABS: CALCIUM 9.1 mg/dL (8.4-11.0); CREATININE 6.04 mg/dL (0.55-1.30); POTASSIUM 5.1 mmol/L (3.5-5.1)
[2016-10-26] MEDS ORDERED: METOCLOPRAMIDE HCL 10 MG/2 ML VIAL IVP ONE (08:30)
[2016-10-26 08:32] LABS: ALBUMIN 3.4 g/dL (3.4-4.8); TOTAL BILIRUBIN 0.6 mg/dL (0.0-1.0)
[2016-10-26 12:05] VITALS: BP_SYST 179
== END 2016-10-26 12:05 | disposition home or self-care (01) ==
LOC: SED 06:48
DX: E87.79 Other fluid overload (principal); I13.2 Hypertensive heart and chronic kidney disease with heart failure and with stage 5 chronic kidney disease, or end stage renal disease; E10.22 Type 1 diabetes mellitus with diabetic chronic kidney disease; N18.6 End stage renal disease; I50.9 Heart failure, unspecified; Z99.2 Dependence on renal dialysis; Z79.4 Long term (current) use of insulin; Z88.5 Allergy status to narcotic agent; Z88.8 Allergy status to other drugs, medicaments and biological substances; Z91.040 Latex allergy status
CPT/HCPCS: 36415; 71020; 74176; 80053; 82962; 83690; 83880; 85025; 96374; 96375; 96376; 99285; J1170; J2405; J2765

== ENCOUNTER 2017-01-12 19:06 | Emergency (ER) | payer OTHER ==
[~2017-01-12] VITALS: Ht 170.2 cm; Wt 59.0 kg
[2017-01-12 19:21] VITALS: BP_SYST 184
[2017-01-12] MEDS ORDERED: KETOROLAC TROMETHAMINE 30 MG VIAL IVP ONE (20:00)
[2017-01-12] MEDS ORDERED: ONDANSETRON HCL 4 MG/2 ML VIAL IVP ONE (20:00)
[2017-01-12 20:19] LABS: EOSINOPHILS # (AUTO) 0.2 K/uL (0.0-0.4); MEAN CORPUSCULAR HEMOGLOBIN 30 pg (27-31); MEAN CORPUSCULAR HGB CONC 33 % (32-36); NEUTROPHILS # (AUTO) 7.8 K/uL (1.8-7.7)
[2017-01-12 20:21] LABS: BASOPHILS # (AUTO) 0.1 K/uL (0.0-0.2); BASOPHILS % (AUTO) 1.3 % (0.0-2.0); EOSINOPHILS % (AUTO) 1.8 % (0.0-4.0); HEMATOCRIT 39.1 % (36-48); HEMOGLOBIN 12.8 g/dL (12.0-16.0); LYMPHOCYTES # (AUTO) 1.4 K/uL (1.0-5.5); LYMPHOCYTES % (AUTO) 14.3 % (20.5-51.5); MEAN CORPUSCULAR VOLUME 91 fL (79.0-98.0); MONOCYTES # (AUTO) 0.4 K/uL (0.0-1.0); MONOCYTES % (AUTO) 4.1 % (1.7-9.3); NEUTROPHILS % (AUTO) 78.5 % (40.0-70.0); PLATELET COUNT (AUTO) 240 K/uL (130-430); RED BLOOD CELL COUNT(AUTO) 4.28 MIL/uL (4.2-6.2); RED CELL DISTRIBUTION WIDTH 15.9 % (9.0-15.0); WHITE BLOOD COUNT (AUTO) 9.9 K/uL (4.8-10.8)
[2017-01-12] MEDS ORDERED: HYDROmorphone 1 MG INJ. 1 MG/ML AMPUL IVP ONE ×2 (21:15→22:45)
[2017-01-12 21:37] LABS: CREATININE 5.38 mg/dL (0.55-1.30)
[2017-01-12 21:42] LABS: POTASSIUM 5.8 mmol/L (3.5-5.1)
[2017-01-12 21:48] LABS: ALBUMIN 3.5 g/dL (3.4-4.8); TOTAL BILIRUBIN 0.8 mg/dL (0.0-1.0)
[2017-01-12] MEDS ORDERED: INSULIN REGULAR, HUMAN 10 UNITS/0.1 ML INJ IVP ONE (22:00)
[2017-01-12] MEDS ORDERED: DEXTROSE 50% JECT 50 ML DISP.SYRIN IVP ONE (22:00)
[2017-01-12] MEDS ORDERED: ALBUTEROL SULFATE 0.083% 2.5 MG/3 ML VIAL.NEB INH ONE (22:00)
[2017-01-12] MEDS ORDERED: CALCIUM CHLORIDE 1 GM in NS 100 ML IV ONE (22:00)
[2017-01-12] MEDS ORDERED: SODIUM POLYSTYRENE SULFONATE 15 GM/60 ML UDBTL PO ONE (22:15)
[2017-01-12] MEDS ORDERED: CALCIUM CHLORIDE 1 GM/10 ML DISP.SYRIN (14 mEq Ca++/SYR) ONE (22:48)
[2017-01-12] MEDS ORDERED: hydrALAZINE HCL 20 MG/ML VIAL IVP ONE (23:15)
[2017-01-12 23:58] LABS: CREATININE 5.35 mg/dL (0.55-1.30); POTASSIUM 5.2 mmol/L (3.5-5.1)
[2017-01-13 00:06] LABS: CALCIUM 13.7 mg/dL (8.4-11.0)
[2017-01-13 01:00] VITALS: BP_SYST 156
== END 2017-01-13 01:00 | disposition home or self-care (01) ==
LOC: SED 19:06
DX: K59.00 Constipation, unspecified (principal); I13.11 Hypertensive heart and chronic kidney disease without heart failure, with stage 5 chronic kidney disease, or end stage renal disease; E10.22 Type 1 diabetes mellitus with diabetic chronic kidney disease; N18.6 End stage renal disease; I50.9 Heart failure, unspecified; E87.5 Hyperkalemia; Z99.2 Dependence on renal dialysis; Z79.4 Long term (current) use of insulin; Z90.49 Acquired absence of other specified parts of digestive tract; Z88.5 Allergy status to narcotic agent; Z91.040 Latex allergy status
CPT/HCPCS: 36415; 74176; 80048; 80053; 82962; 83690; 84702; 85025; 93005; 94640; 96365; 96374; 96375; 99285; J0360; J1170; J1815; J1885; J2405

== ENCOUNTER 2017-01-28 06:11 | Inpatient (IN) | payer OTHER ==
[~2017-01-28] VITALS: Ht 170.2 cm; Wt 54.0 kg
[2017-01-28] VITALS (8 sets, daily range): BP systolic 159–210
[2017-01-28] MEDS ORDERED: ONDANSETRON HCL 4 MG/2 ML VIAL IVP ONE ×2 (06:30→08:30)
[2017-01-28] MEDS ORDERED: NACL 0.9% 1,000 ML IV ONE (06:30)
[2017-01-28] MEDS ORDERED: fentaNYL CITRATE/PF 100 MCG/2 ML AMP IVP ONE (06:45)
[2017-01-28] MEDS ORDERED: hydrALAZINE HCL 20 MG/ML VIAL IVP ONE ×2 (07:00→11:00)
[2017-01-28 07:25] LABS: BASOPHILS # (AUTO) 0.1 K/uL (0.0-0.2); BASOPHILS % (AUTO) 0.9 % (0.0-2.0); EOSINOPHILS # (AUTO) 0.1 K/uL (0.0-0.4); EOSINOPHILS % (AUTO) 0.6 % (0.0-4.0); HEMATOCRIT 41.6 % (36-48); HEMOGLOBIN 13.4 g/dL (12.0-16.0); LYMPHOCYTES # (AUTO) 1.4 K/uL (1.0-5.5); LYMPHOCYTES % (AUTO) 11.9 % (20.5-51.5); MEAN CORPUSCULAR HEMOGLOBIN 30 pg (27-31); MEAN CORPUSCULAR HGB CONC 32 % (32-36); MEAN CORPUSCULAR VOLUME 94 fL (79.0-98.0); MONOCYTES # (AUTO) 0.4 K/uL (0.0-1.0); MONOCYTES % (AUTO) 3.3 % (1.7-9.3); NEUTROPHILS # (AUTO) 9.4 K/uL (1.8-7.7); NEUTROPHILS % (AUTO) 83.3 % (40.0-70.0); PLATELET COUNT (AUTO) 189 K/uL (130-430); RED BLOOD CELL COUNT(AUTO) 4.44 MIL/uL (4.2-6.2); WHITE BLOOD COUNT (AUTO) 11.4 K/uL (4.8-10.8)
[2017-01-28 07:37] LABS: INR 1.2 (0.8-1.2); PROTHROMBIN TIME 12.3 SECS (9.5-12.5)
[2017-01-28 07:42] LABS: ACETONE, SERUM NEGATIVE (NEGATIVE)
[2017-01-28 07:48] LABS: ANION GAP 18 (5-15); CALCIUM 11.3 mg/dL (8.4-11.0); CHLORIDE 92 mmol/L (98-107); CREATININE 5.75 mg/dL (0.55-1.30); GLUCOSE 248 mg/dL (70-99); SODIUM SERUM 134 mmol/L (136-145); UREA NITROGEN, BLOOD 37 mg/dL (8-21)
[2017-01-28 07:53] LABS: ALANINE AMINOTRANSFERASE 83 U/L (12-78); ALBUMIN 4.8 g/dL (3.4-4.8); ASPARTATE AMINOTRANSFERASE 62 U/L (10-37); LIPASE 75 U/L (73-393); POTASSIUM 5.3 mmol/L (3.5-5.1); TOTAL BILIRUBIN 1.4 mg/dL (0.0-1.0)
[2017-01-28] MEDS ORDERED: HYDROmorphone 1 MG INJ. 1 MG/ML AMPUL IVP ONE (08:15)
[2017-01-28] MEDS ORDERED: PROMETHAZINE HCL 50 MG/ML AMP IM ONE (08:30)
[2017-01-28] MEDS ORDERED: MORPHINE 2 MG/ML INJ. SYRINGE IVP PRN (11:45)
[2017-01-28] MEDS ORDERED: ONDANSETRON HCL 4 MG/2 ML VIAL IVP PRN (11:45)
[2017-01-28] MEDS ORDERED: ACETAMINOPHEN 325 MG TABLET PO PRN (11:45)
[2017-01-28] MEDS ORDERED: ONDANSETRON 4 MG ODT TAB PO PRN (12:00)
[2017-01-28] MEDS ORDERED: ENALAPRILAT DIHYDRATE 1.25 MG/ML VIAL IVP ONE (12:00)
[2017-01-28] MEDS ORDERED: DOCUSATE SODIUM 250 MG CAPSULE PO PRN (12:00)
[2017-01-28] MEDS ORDERED: cloNIDine HCL 0.1 MG/24 HR PATCH.TDWK TD ONE (12:30)
[2017-01-28] MEDS: HYDROmorphone 1 MG INJ. 1 MG/ML AMPUL IVP PRN ×3 (12:33→22:28)
[2017-01-28] MEDS ORDERED: PROMETHAZINE HCL 25 MG/ML AMP IVP PRN (12:45)
[2017-01-28] MEDS: NACL 0.9% 1,000 ML IV SCH (12:50)
[2017-01-28 13:20] LABS: FREE T4 (FREE THYROXINE) 1.4 ng/dl (0.8-1.5); PHOSPHORUS 4.8 mg/dL (2.7-4.5); THYROID STIMULATING HORMONE 2.04 uIu/mL (0.36-3.74)
[2017-01-28] MEDS: hydrALAZINE HCL 25 MG TABLET PO SCH ×2 (15:00→21:45)
[2017-01-28] MEDS: INSULIN REGULAR, HUMAN 100 UNITS/ML, 10 ML VIAL (novoLIN R) SUBCUT PRN (17:24)
[2017-01-28] MEDS: BUMETANIDE 1 MG TABLET PO SCH (21:43)
[2017-01-28] MEDS: DOCUSATE SODIUM 100 MG CAPSULE PO SCH (21:44)
[2017-01-29 00:39] VITALS: BP_SYST 155
[2017-01-29] MEDS: HYDROmorphone 1 MG INJ. 1 MG/ML AMPUL IVP PRN ×6 (03:20→21:38)
[2017-01-29 04:34] VITALS: BP_SYST 167
[2017-01-29] MEDS: NACL 0.9% 1,000 ML IV SCH (05:40)
[2017-01-29] MEDS: hydrALAZINE HCL 25 MG TABLET PO SCH ×3 (06:56→21:56)
[2017-01-29 07:58] VITALS: BP_SYST 165
[2017-01-29 08:03] LABS: CHOLESTEROL 96 mg/dL (<200); HDL CHOLESTEROL 25 mg/dL (>55); LDL CHOLESTEROL 56 mg/dL (<100); TRIGLYCERIDES 92 mg/dL (30-150)
[2017-01-29 08:28] LABS: HEMOGLOBIN A1C 8.3 % (4.8-5.6)
[2017-01-29] MEDS: DOCUSATE SODIUM 100 MG CAPSULE PO SCH ×2 (08:55→21:55)
[2017-01-29] MEDS: NIFEDIPINE 60 MG TABLET.SA (PROCARDIA XL 60 MG) PO SCH (08:56)
[2017-01-29] MEDS: BUMETANIDE 1 MG TABLET PO SCH ×2 (08:57→21:56)
[2017-01-29 09:20] LABS: T4 (THYROXINE) 9.8 ug/dL (4.5-12.0)
[2017-01-29] MEDS: INSULIN REGULAR, HUMAN 100 UNITS/ML, 10 ML VIAL (novoLIN R) SUBCUT PRN ×2 (11:51→17:27)
[2017-01-29 12:00] VITALS: BP_SYST 162
[2017-01-29] MEDS ORDERED: PANTOPRAZOLE SODIUM 40 MG/VIAL (PROTONIX) IVP ONE (14:30)
[2017-01-29 16:35] VITALS: BP_SYST 165
[2017-01-29 19:45] VITALS: BP_SYST 161
[2017-01-29 20:13] LABS: CREATININE 3.75 mg/dL (0.55-1.30); POTASSIUM 3.7 mmol/L (3.5-5.1)
[2017-01-29] MEDS ORDERED: hydrALAZINE HCL 20 MG/ML VIAL IVP PRN (21:00)
[2017-01-29] MEDS ORDERED: HYDROcodone/ACETAMIN 10-325 MG TAB PO PRN (21:15)
[2017-01-29] MEDS: LACTULOSE 20 GM/30 ML UDC PO SCH (21:56)
[2017-01-30] MEDS: HYDROmorphone 1 MG INJ. 1 MG/ML AMPUL IVP PRN ×5 (01:56→20:47)
[2017-01-30] MEDS: hydrALAZINE HCL 25 MG TABLET PO SCH ×2 (06:28→14:53)
[2017-01-30 06:47] VITALS: BP_SYST 169
[2017-01-30 06:48] LABS: BASOPHILS % (AUTO) 0.3 % (0.0-2.0); EOSINOPHILS # (AUTO) 0.2 K/uL (0.0-0.4); EOSINOPHILS % (AUTO) 2.4 % (0.0-4.0); HEMATOCRIT 32.4 % (36-48); HEMOGLOBIN 10.6 g/dL (12.0-16.0); LYMPHOCYTES # (AUTO) 1.6 K/uL (1.0-5.5); LYMPHOCYTES % (AUTO) 20.8 % (20.5-51.5); MEAN CORPUSCULAR HEMOGLOBIN 31 pg (27-31); MEAN CORPUSCULAR HGB CONC 33 % (32-36); MEAN CORPUSCULAR VOLUME 95 fL (79.0-98.0); MONOCYTES # (AUTO) 0.4 K/uL (0.0-1.0); MONOCYTES % (AUTO) 4.7 % (1.7-9.3); NEUTROPHILS # (AUTO) 5.3 K/uL (1.8-7.7); NEUTROPHILS % (AUTO) 71.8 % (40.0-70.0); PLATELET COUNT (AUTO) 152 K/uL (130-430); RED BLOOD CELL COUNT(AUTO) 3.42 MIL/uL (4.2-6.2); RED CELL DISTRIBUTION WIDTH 15.3 % (9.0-15.0); WHITE BLOOD COUNT (AUTO) 7.5 K/uL (4.8-10.8)
[2017-01-30 06:49] LABS: CALCIUM 8.1 mg/dL (8.4-11.0); CREATININE 4.63 mg/dL (0.55-1.30); POTASSIUM 4.8 mmol/L (3.5-5.1)
[2017-01-30 08:00] VITALS: BP_SYST 156
[2017-01-30] MEDS: PANTOPRAZOLE SODIUM 40 MG/VIAL (PROTONIX) IVP SCH (09:25)
[2017-01-30] MEDS: NIFEDIPINE 60 MG TABLET.SA (PROCARDIA XL 60 MG) PO SCH (09:26)
[2017-01-30] MEDS: BUMETANIDE 1 MG TABLET PO SCH (09:26)
[2017-01-30] MEDS: LACTULOSE 20 GM/30 ML UDC PO SCH (09:26)
[2017-01-30] MEDS: DOCUSATE SODIUM 100 MG CAPSULE PO SCH (09:27)
[2017-01-30] MEDS ORDERED: NA PHOS,M-B/NA PHOS,DI-BA 118 ML (FLEET ENEMA) RC ONE (10:15)
[2017-01-30] MEDS ORDERED: BISACODYL 10 MG/SUPPOSITORY RC ONE (10:15)
[2017-01-30] MEDS: INSULIN REGULAR, HUMAN 100 UNITS/ML, 10 ML VIAL (novoLIN R) SUBCUT PRN (11:36)
[2017-01-30 12:30] VITALS: BP_SYST 138
[2017-01-30] MEDS: METOCLOPRAMIDE HCL 10 MG/2 ML VIAL IVP SCH ×2 (12:32→14:00)
[2017-01-30 16:32] VITALS: BP_SYST 139
[2017-01-30 20:00] VITALS: BP_SYST 138
[2017-01-31] MEDS: BUMETANIDE 1 MG TABLET PO SCH ×2 (00:43→08:44)
[2017-01-31] MEDS: METOCLOPRAMIDE HCL 10 MG/2 ML VIAL IVP SCH ×2 (00:44→05:03)
[2017-01-31] MEDS: DOCUSATE SODIUM 100 MG CAPSULE PO SCH ×2 (00:44→08:38)
[2017-01-31] MEDS: LACTULOSE 20 GM/30 ML UDC PO SCH ×2 (00:44→08:41)
[2017-01-31] MEDS: hydrALAZINE HCL 25 MG TABLET PO SCH ×2 (00:45→05:04)
[2017-01-31] MEDS: HYDROmorphone 1 MG INJ. 1 MG/ML AMPUL IVP PRN ×4 (00:46→11:45)
[2017-01-31 00:55] VITALS: BP_SYST 149
[2017-01-31 04:16] VITALS: BP_SYST 128
[2017-01-31] MEDS: INSULIN REGULAR, HUMAN 100 UNITS/ML, 10 ML VIAL (novoLIN R) SUBCUT PRN (06:30)
[2017-01-31] MEDS: NIFEDIPINE 60 MG TABLET.SA (PROCARDIA XL 60 MG) PO SCH (08:37)
[2017-01-31] MEDS: PANTOPRAZOLE SODIUM 40 MG/VIAL (PROTONIX) IVP SCH (08:37)
[2017-01-31 09:06] VITALS: BP_SYST 160
[2017-01-31] MEDS ORDERED: METO-290 PO (10:20)
[2017-01-31] MEDS ORDERED: LACT10SO66 PO (10:20)
[2017-01-31] MEDS ORDERED: IBUP-1480 PO (10:21)
[2017-01-31] MEDS ORDERED: ONDA4TAB5 PO (10:22)
[2017-01-31 11:29] VITALS: BP_SYST 150
[2017-01-31 12:44] VITALS: BP_SYST 147
[2017-02-03] MEDS ORDERED: cloNIDine HCL 0.1 MG/24 HR PATCH.TDWK TD SCH (09:00)
== END 2017-01-31 13:13 | disposition home or self-care (01) | DRG 388 ==
LOC: SED 06:11 → STU 08:37 → SMU 01-29 17:40
PROVIDERS: ADMIT Family Medicine; ATTEND Family Medicine
PROC: 5A1D70Z Performance of Urinary Filtration, Intermittent, Less than 6 Hours Per Day (ICD-10-PCS; principal; 2017-01-30)
DX: K56.41 Fecal impaction (principal); N18.6 End stage renal disease; E11.22 Type 2 diabetes mellitus with diabetic chronic kidney disease; K31.84 Gastroparesis; E11.43 Type 2 diabetes mellitus with diabetic autonomic (poly)neuropathy; I12.0 Hypertensive chronic kidney disease with stage 5 chronic kidney disease or end stage renal disease; E87.1 Hypo-osmolality and hyponatremia; E11.65 Type 2 diabetes mellitus with hyperglycemia; E87.5 Hyperkalemia; D63.1 Anemia in chronic kidney disease; K21.9 Gastro-esophageal reflux disease without esophagitis; Z79.4 Long term (current) use of insulin; Z79.1 Long term (current) use of non-steroidal anti-inflammatories (NSAID); Z79.899 Other long term (current) drug therapy; Z88.5 Allergy status to narcotic agent; Z88.8 Allergy status to other drugs, medicaments and biological substances; Z91.040 Latex allergy status
CPT/HCPCS: 36415; 74000-TC; 80048; 80053; 80061; 82009-TC; 82150-TC; 82962; 83036; 83605; 83690-TC; 83735-TC; 83880; 84100-TC; 84436; 84439; 84443-TC; 84479; 84484; 85025; 85610-TC; 85730-TC; 87040-TC; 87081; 90935; 93005; 96374; 96375; 96376; 99285; C9113; J0360; J1170; J1815; J2405; J2550; J2765; J3010; J7030

== ENCOUNTER 2017-04-19 00:16 | Emergency (ER) | payer OTHER ==
[~2017-04-19] VITALS: Ht 170.2 cm; Wt 68.0 kg
[2017-04-19 00:16] VITALS: BP_SYST 187
[~2017-04-19 00:16] MED LIST changes: +IBUP-1480 PO; +LACT10SO66 PO; +METO-290 PO; -ONDA4TAB22 PO; +ONDA4TAB5 PO
--- NOTE | 2017-04-19 01:51 | NUR ---
Patient to ER bed 4 to gown for evaluation. Side rails up. Report given to AMANDA CURRY.
--- NOTE | 2017-04-19 01:51 | NUR ---
Pt eloped at [facility] for a syncopal episode. Since 1000, Pt has been reporting body aches with SOB. Pt is in no distress, but states she is 10/10 pain. Will continue to monitor via classroom monitor. AAOx4.
--- NOTE | 2017-04-19 01:51 | NUR ---
Note alex in EDM - 04/19/17 at 0621 by ARPIT Pt eloped at [facility] for a syncopal episode. Since 1000, Pt has been reporting body aches with SOB. Pt is in no distress, but states she is 10/10 pain. WIll continue to monitor via bus monitor. AAOx4.
--- NOTE | 2017-04-19 02:12 | NUR ---
ER Dr. Daniel at bedside examining patient.
[2017-04-19] MEDS: HYDROmorphone 1 MG INJ. 1 MG/ML AMPUL IM ONE (02:56)
--- NOTE | 2017-04-19 07:20 | NUR ---
Pt sleeping easily arouseable.Pt awaiting spouse for transport home.
[2017-04-19 08:10] VITALS: BP_SYST 148
--- NOTE | 2017-04-19 08:10 | NUR ---
Patient given written and verbal discharge instructions and verbalizes understanding. ER MD discussed with patient the results and treatment provided. Patient in stable condition. ID arm band removed. no Rx given. Patient educated on pain management and to follow up with PMD. Pain Scale 2. Opportunity for questions provided and answered.
== END 2017-04-19 08:10 | disposition home or self-care (01) ==
LOC: SED 00:16
DX: R07.89 Other chest pain (principal); R06.02 Shortness of breath; I13.2 Hypertensive heart and chronic kidney disease with heart failure and with stage 5 chronic kidney disease, or end stage renal disease; E10.22 Type 1 diabetes mellitus with diabetic chronic kidney disease; N18.6 End stage renal disease; I50.9 Heart failure, unspecified; Z99.2 Dependence on renal dialysis; Z79.4 Long term (current) use of insulin; Z79.899 Other long term (current) drug therapy; Z91.040 Latex allergy status; Z88.5 Allergy status to narcotic agent; Z53.20 Procedure and treatment not carried out because of patient's decision for unspecified reasons
CPT/HCPCS: 93005; 96372; 99283; J1170

== ENCOUNTER 2017-04-26 08:49 | Inpatient (IN) | payer OTHER ==
[~2017-04-26] VITALS: Ht 170.2 cm; Wt 61.4 kg
[~2017-04-26 08:49] MED LIST changes: -BUME1TAB4 PO; -IBUP-1480 PO; -LACT10SO66 PO; -METO-290 PO; -NIFE60TA7 PO; -TRAM50TA92 PO
[2017-04-26 08:57] VITALS: BP_SYST 190
[2017-04-26] MEDS ORDERED: ONDANSETRON HCL 4 MG/2 ML VIAL IVP ONE (09:30)
[2017-04-26] MEDS ORDERED: DIPHENHYDRAMINE INJ 50 MG/ML VIAL IVP ONE (09:30)
[2017-04-26] MEDS ORDERED: HYDROmorphone 1 MG INJ. 1 MG/ML AMPUL IVP ONE (09:30)
[2017-04-26 09:47] LABS: BASOPHILS # (AUTO) 0.2 K/uL (0.0-0.2); BASOPHILS % (AUTO) 2.4 % (0.0-2.0); EOSINOPHILS # (AUTO) 0.2 K/uL (0.0-0.4); EOSINOPHILS % (AUTO) 3.4 % (0.0-4.0); HEMATOCRIT 36.2 % (36-48); HEMOGLOBIN 11.6 g/dL (12.0-16.0); LYMPHOCYTES # (AUTO) 1.4 K/uL (1.0-5.5); MEAN CORPUSCULAR HEMOGLOBIN 31 pg (27-31); MEAN CORPUSCULAR HGB CONC 32 % (32-36); MEAN CORPUSCULAR VOLUME 97 fL (79.0-98.0); MONOCYTES # (AUTO) 0.3 K/uL (0.0-1.0); MONOCYTES % (AUTO) 4.2 % (1.7-9.3); NEUTROPHILS # (AUTO) 5.1 K/uL (1.8-7.7); PLATELET COUNT (AUTO) 200 K/uL (130-430); RED BLOOD CELL COUNT(AUTO) 3.75 MIL/uL (4.2-6.2); RED CELL DISTRIBUTION WIDTH 16.3 % (9.0-15.0); WHITE BLOOD COUNT (AUTO) 7.2 K/uL (4.8-10.8)
[2017-04-26 10:35] LABS: ANION GAP 15 (5-15); CALCIUM 9.1 mg/dL (8.4-11.0); CHLORIDE 94 mmol/L (98-107); GLUCOSE 393 mg/dL (70-99); SODIUM SERUM 132 mmol/L (136-145); UREA NITROGEN, BLOOD 82 mg/dL (8-21)
[2017-04-26 10:38] LABS: GFR AFRICAN AMERICAN 8 mL/min (>90); INR 1.2 (0.8-1.2); PROTHROMBIN TIME 12.1 SECS (9.5-12.5)
[2017-04-26 10:40] LABS: CREATININE 7.93 mg/dL (0.55-1.30); POTASSIUM 6.5 mmol/L (3.5-5.1)
[2017-04-26 10:43] LABS: ALANINE AMINOTRANSFERASE 30 U/L (12-78); ALBUMIN 3.3 g/dL (3.4-4.8); ASPARTATE AMINOTRANSFERASE 19 U/L (10-37); TOTAL BILIRUBIN 0.6 mg/dL (0.0-1.0)
[2017-04-26] MEDS ORDERED: SODIUM POLYSTYRENE SULFONATE 15 GM/60 ML UDBTL PO ONE (11:00)
[2017-04-26] MEDS ORDERED: SODIUM BICARBONATE 8.4% JECT 50 MEQ/50 ML SYRINGE IVP ONE (11:00)
[2017-04-26] MEDS ORDERED: DEXTROSE 50% JECT 50 ML DISP.SYRIN IVP ONE (11:00)
[2017-04-26] MEDS ORDERED: LABETALOL 100 MG/ 20ML VIAL IVP ONE (11:00)
[2017-04-26] MEDS ORDERED: CALCIUM CHLORIDE 1 GM/10ML VIAL (13.6 mEq Ca++/VIAL) IVP ONE (11:00)
[2017-04-26] MEDS: ALBUTEROL SULFATE 0.083% 2.5 MG/3 ML VIAL.NEB INH SCH ×4 (11:00→23:00)
[2017-04-26] MEDS ORDERED: INSULIN REGULAR, HUMAN 10 UNITS/0.1 ML INJ IVP ONE (11:00)
[2017-04-26] MEDS: HYDROcodone/ACETAMIN 5-325 MG TAB (NORCO/ VICODIN) PO PRN ×2 (11:09→15:43)
[2017-04-26] MEDS ORDERED: hydrALAZINE HCL 20 MG/ML VIAL ONE (11:52)
[2017-04-26 12:55] VITALS: BP_SYST 143
[2017-04-26 15:39] VITALS: BP_SYST 143
[2017-04-26] MEDS: NORMAL SALINE 5 ML DISP.SYRIN IVF SCH ×2 (15:54→22:35)
[2017-04-26] MEDS: HYDROmorphone 2 MG/ML VIAL IVP PRN ×2 (17:24→21:52)
[2017-04-26 20:00] VITALS: BP_SYST 141
[2017-04-26] MEDS: INSULIN REGULAR, HUMAN 100 UNITS/ML, 10 ML VIAL (novoLIN R) SUBCUT PRN (22:23)
[2017-04-26] MEDS: hydrALAZINE HCL 20 MG/ML VIAL IVP PRN (22:35)
[2017-04-27 00:46] VITALS: BP_SYST 130
[2017-04-27] MEDS: HYDROmorphone 2 MG/ML VIAL IVP PRN ×6 (01:53→22:38)
[2017-04-27] MEDS: ALBUTEROL SULFATE 0.083% 2.5 MG/3 ML VIAL.NEB INH SCH ×6 (03:30→23:30)
[2017-04-27] MEDS: NORMAL SALINE 5 ML DISP.SYRIN IVF SCH ×3 (05:59→22:39)
[2017-04-27 07:44] LABS: ALBUMIN 3.2 g/dL (3.4-4.8); CALCIUM 9.2 mg/dL (8.4-11.0); CREATININE 5.6 mg/dL (0.55-1.30); POTASSIUM 4.6 mmol/L (3.5-5.1); TOTAL BILIRUBIN 0.7 mg/dL (0.0-1.0)
[2017-04-27 07:48] LABS: BASOPHILS % (AUTO) 0.4 % (0.0-2.0); EOSINOPHILS # (AUTO) 0.2 K/uL (0.0-0.4); EOSINOPHILS % (AUTO) 3.6 % (0.0-4.0); HEMOGLOBIN 11.1 g/dL (12.0-16.0); LYMPHOCYTES # (AUTO) 1.5 K/uL (1.0-5.5); MEAN CORPUSCULAR HEMOGLOBIN 31 pg (27-31); MEAN CORPUSCULAR HGB CONC 32 % (32-36); MEAN CORPUSCULAR VOLUME 98 fL (79.0-98.0); MONOCYTES # (AUTO) 0.4 K/uL (0.0-1.0); NEUTROPHILS # (AUTO) 3.8 K/uL (1.8-7.7); PLATELET COUNT (AUTO) 193 K/uL (130-430); RED BLOOD CELL COUNT(AUTO) 3.59 MIL/uL (4.2-6.2); RED CELL DISTRIBUTION WIDTH 16.2 % (9.0-15.0); WHITE BLOOD COUNT (AUTO) 5.9 K/uL (4.8-10.8)
[2017-04-27 08:00] VITALS: BP_SYST 148
[2017-04-27] MEDS: INSULIN REGULAR, HUMAN 100 UNITS/ML, 10 ML VIAL (novoLIN R) SUBCUT PRN (11:52)
[2017-04-27 12:00] VITALS: BP_SYST 145
[2017-04-27 15:16] VITALS: BP_SYST 117
[2017-04-27 20:00] VITALS: BP_SYST 175
[2017-04-27] MEDS: DOCUSATE SODIUM 100 MG CAPSULE PO SCH (20:02)
[2017-04-27] MEDS: hydrALAZINE HCL 20 MG/ML VIAL IVP PRN (20:03)
[2017-04-27] MEDS: hydrALAZINE HCL 25 MG TABLET PO SCH (22:37)
[2017-04-28] VITALS (7 sets, daily range): BP systolic 147–185
[2017-04-28] MEDS: HYDROmorphone 2 MG/ML VIAL IVP PRN ×5 (03:03→18:53)
[2017-04-28] MEDS: ALBUTEROL SULFATE 0.083% 2.5 MG/3 ML VIAL.NEB INH SCH (03:30)
[2017-04-28] MEDS: NORMAL SALINE 5 ML DISP.SYRIN IVF SCH ×2 (05:35→14:35)
[2017-04-28] MEDS: hydrALAZINE HCL 25 MG TABLET PO SCH ×2 (05:35→13:48)
[2017-04-28] MEDS: INSULIN REGULAR, HUMAN 100 UNITS/ML, 10 ML VIAL (novoLIN R) SUBCUT PRN ×2 (06:22→11:51)
[2017-04-28] MEDS: DOCUSATE SODIUM 100 MG CAPSULE PO SCH ×2 (08:34→20:26)
[2017-04-28] MEDS ORDERED: METOPROLOL SUCCINATE 50 MG TAB.SR.24H (TOPROL XL) PO SCH (09:00)
[2017-04-28] MEDS ORDERED: HYDR-1189 PO (17:04)
[2017-04-28] MEDS ORDERED: BUME2TAB3 PO (17:05)
[2017-04-28] MEDS ORDERED: cloNIDine HCL 0.1 MG TABLET PO ONE (19:45)
== END 2017-04-28 20:37 | disposition left against medical advice (07) | DRG 640 ==
LOC: SED 08:49 → STU 10:56
PROVIDERS: ADMIT Internal Medicine Nephrology; ATTEND Internal Medicine Nephrology
PROC: 5A1D70Z Performance of Urinary Filtration, Intermittent, Less than 6 Hours Per Day (ICD-10-PCS; principal; 2017-04-26)
PROC: 5A1D70Z Performance of Urinary Filtration, Intermittent, Less than 6 Hours Per Day (ICD-10-PCS; 2017-04-28)
DX: E87.5 Hyperkalemia (principal); N18.6 End stage renal disease; I13.2 Hypertensive heart and chronic kidney disease with heart failure and with stage 5 chronic kidney disease, or end stage renal disease; E10.22 Type 1 diabetes mellitus with diabetic chronic kidney disease; I12.0 Hypertensive chronic kidney disease with stage 5 chronic kidney disease or end stage renal disease; I42.8 Other cardiomyopathies; I50.9 Heart failure, unspecified; M25.572 Pain in left ankle and joints of left foot; G89.29 Other chronic pain; M54.9 Dorsalgia, unspecified; E87.70 Fluid overload, unspecified; Z53.21 Procedure and treatment not carried out due to patient leaving prior to being seen by health care provider; Z88.8 Allergy status to other drugs, medicaments and biological substances; Z88.6 Allergy status to analgesic agent; Z91.040 Latex allergy status; Z79.899 Other long term (current) drug therapy
CPT/HCPCS: 36415; 71045; 72192-TC; 80048; 80053; 82962; 83880; 84484; 85025; 85610-TC; 85730-TC; 87081; 90935; 90937; 93005; 96374; 96375; 99285; J0360; J1170; J1200; J1815; J2405; J3490; J7030

== ENCOUNTER 2017-05-24 01:34 | Inpatient (IN) | payer OTHER ==
[~2017-05-24] VITALS: Ht 170.2 cm; Wt 66.8 kg
[~2017-05-24 01:34] MED LIST changes: +BUME2TAB3 PO; +HYDR-1189 PO; -HYDR-4100 PO
[2017-05-24 01:37] VITALS: BP_SYST 80
[2017-05-24] MEDS ORDERED: ONDANSETRON HCL 4 MG/2 ML VIAL IVP ONE (04:00)
[2017-05-24] MEDS ORDERED: PANTOPRAZOLE SODIUM 40 MG/VIAL (PROTONIX) IVP ONE (04:00)
[2017-05-24] MEDS ORDERED: KETOROLAC TROMETHAMINE 30 MG VIAL IVP ONE ×2 (04:00→06:00)
[2017-05-24 04:37] LABS: BASOPHILS # (AUTO) 0.2 K/uL (0.0-0.2); BASOPHILS % (AUTO) 2.9 % (0.0-2.0); EOSINOPHILS # (AUTO) 0.2 K/uL (0.0-0.4); EOSINOPHILS % (AUTO) 1.9 % (0.0-4.0); HEMATOCRIT 32.7 % (36-48); LYMPHOCYTES # (AUTO) 1.2 K/uL (1.0-5.5); LYMPHOCYTES % (AUTO) 13.8 % (20.5-51.5); MEAN CORPUSCULAR HEMOGLOBIN 33 pg (27-31); MEAN CORPUSCULAR HGB CONC 34 % (32-36); MEAN CORPUSCULAR VOLUME 97 fL (79.0-98.0); MONOCYTES # (AUTO) 0.6 K/uL (0.0-1.0); MONOCYTES % (AUTO) 6.5 % (1.7-9.3); NEUTROPHILS # (AUTO) 6.3 K/uL (1.8-7.7); NEUTROPHILS % (AUTO) 74.9 % (40.0-70.0); PLATELET COUNT (AUTO) 172 K/uL (130-430); RED BLOOD CELL COUNT(AUTO) 3.37 MIL/uL (4.2-6.2); RED CELL DISTRIBUTION WIDTH 15.2 % (9.0-15.0); WHITE BLOOD COUNT (AUTO) 8.5 K/uL (4.8-10.8)
[2017-05-24 04:48] LABS: CALCIUM 8.8 mg/dL (8.4-11.0); CREATININE 7.56 mg/dL (0.55-1.30)
[2017-05-24 05:15] LABS: POTASSIUM 7.7 mmol/L (3.5-5.1); TOTAL BILIRUBIN 0.7 mg/dL (0.0-1.0)
[2017-05-24] MEDS ORDERED: DEXTROSE 50% JECT 50 ML DISP.SYRIN IVP ONE (05:30)
[2017-05-24] MEDS ORDERED: CALCIUM GLUCONATE 1 GM/10 ML VIAL IVP ONE (05:30)
[2017-05-24] MEDS ORDERED: INSULIN NPH/REGULAR 70-30, 100 UNITS/ML, 10 ML VIAL SUBCUT ONE (05:30)
[2017-05-24] MEDS ORDERED: METOCLOPRAMIDE HCL 10 MG/2 ML VIAL IVP ONE (05:45)
[2017-05-24] MEDS ORDERED: HYDROcodone/ACETAMIN 5-325 MG TAB (NORCO/ VICODIN) PO ONE ×2 (05:45→10:30)
[2017-05-24] MEDS ORDERED: INSULIN REGULAR, HUMAN 10 UNITS/0.1 ML INJ IVP ONE (05:45)
[2017-05-24 06:50] VITALS: BP_SYST 98
[2017-05-24 08:56] VITALS: BP_SYST 104
[2017-05-24] MEDS ORDERED: INSULIN REGULAR, HUMAN 100 UNITS/ML, 10 ML VIAL (novoLIN R) SUBCUT PRN (09:30)
[2017-05-24] MEDS ORDERED: DEXTROSE 50% JECT 50 ML DISP.SYRIN IVP PRN (09:30)
[2017-05-24] MEDS ORDERED: ONDANSETRON 4 MG ODT TAB PO PRN (09:30)
[2017-05-24] MEDS ORDERED: DOCUSATE SODIUM 250 MG CAPSULE PO PRN (09:30)
[2017-05-24] MEDS: BUMETANIDE 1 MG TABLET PO SCH (09:30)
[2017-05-24] MEDS ORDERED: METOPROLOL SUCCINATE 50 MG TAB.SR.24H (TOPROL XL) PO ONE (10:00)
[2017-05-24] MEDS ORDERED: BUMETANIDE 1 MG TABLET PO ONE (10:00)
[2017-05-24] MEDS ORDERED: hydrALAZINE HCL 25 MG TABLET PO ONE (10:00)
[2017-05-24] MEDS: HYDROcodone/ACETAMIN 5-325 MG TAB (NORCO/ VICODIN) PO PRN ×3 (10:18→19:43)
[2017-05-24] MEDS ORDERED: ONDANSETRON HCL 4 MG/2 ML VIAL IM PRN (10:30)
[2017-05-24 15:26] VITALS: BP_SYST 157
[2017-05-24] MEDS: hydrALAZINE HCL 25 MG TABLET PO SCH ×2 (15:31→21:36)
[2017-05-24 18:56] VITALS: BP_SYST 178
[2017-05-24] MEDS ORDERED: DIPHENHYDRAMINE INJ 50 MG/ML VIAL IVP PRN (19:15)
[2017-05-24] MEDS: cloNIDine HCL 0.2 MG TABLET PO PRN (19:43)
[2017-05-24 20:00] VITALS: BP_SYST 152
[2017-05-24] MEDS: PANTOPRAZOLE SODIUM 40 MG/VIAL (PROTONIX) IVP SCH (21:37)
[2017-05-24] MEDS: METOPROLOL SUCCINATE 50 MG TAB.SR.24H (TOPROL XL) PO SCH (21:37)
[2017-05-25 00:01] VITALS: BP_SYST 159
[2017-05-25] MEDS: HYDROcodone/ACETAMIN 5-325 MG TAB (NORCO/ VICODIN) PO PRN ×3 (03:18→16:01)
[2017-05-25] MEDS: METOCLOPRAMIDE HCL 10 MG/2 ML VIAL IVP SCH ×3 (06:08→16:52)
[2017-05-25] MEDS: hydrALAZINE HCL 25 MG TABLET PO SCH ×2 (06:12→14:19)
[2017-05-25 07:08] LABS: BASOPHILS % (AUTO) 0.2 % (0.0-2.0); EOSINOPHILS # (AUTO) 0.1 K/uL (0.0-0.4); HEMOGLOBIN 10.1 g/dL (12.0-16.0); LYMPHOCYTES # (AUTO) 1.5 K/uL (1.0-5.5); LYMPHOCYTES % (AUTO) 24.7 % (20.5-51.5); MEAN CORPUSCULAR HEMOGLOBIN 32 pg (27-31); MEAN CORPUSCULAR HGB CONC 32 % (32-36); MEAN CORPUSCULAR VOLUME 98 fL (79.0-98.0); MONOCYTES # (AUTO) 0.4 K/uL (0.0-1.0); MONOCYTES % (AUTO) 6.3 % (1.7-9.3); NEUTROPHILS % (AUTO) 66.8 % (40.0-70.0); PLATELET COUNT (AUTO) 137 K/uL (130-430); RED BLOOD CELL COUNT(AUTO) 3.18 MIL/uL (4.2-6.2); RED CELL DISTRIBUTION WIDTH 14.9 % (9.0-15.0)
[2017-05-25 07:31] LABS: CALCIUM 8.7 mg/dL (8.4-11.0); CREATININE 5.34 mg/dL (0.55-1.30); FREE T4 (FREE THYROXINE) 0.8 ng/dL (0.6-1.6); POTASSIUM 5.2 mmol/L (3.5-5.1); THYROID STIMULATING HORMONE 0.83 uIu/mL (0.34-4.82)
[2017-05-25 08:06] VITALS: BP_SYST 151
[2017-05-25] MEDS: BUMETANIDE 1 MG TABLET PO SCH (08:56)
[2017-05-25] MEDS: PANTOPRAZOLE SODIUM 40 MG/VIAL (PROTONIX) IVP SCH (08:56)
[2017-05-25] MEDS: METOPROLOL SUCCINATE 50 MG TAB.SR.24H (TOPROL XL) PO SCH (08:57)
[2017-05-25] MEDS ORDERED: SODIUM POLYSTYRENE SULFONATE 15 GM/60 ML UDBTL PO ONE (10:45)
[2017-05-25 12:34] VITALS: BP_SYST 173
[2017-05-25] MEDS: cloNIDine HCL 0.2 MG TABLET PO PRN ×2 (12:37→16:51)
[2017-05-25 13:45] VITALS: BP_SYST 153
[2017-05-25 16:38] VITALS: BP_SYST 163
[2017-05-25 17:29] VITALS: BP_SYST 158
[2017-05-25] MEDS ORDERED: CAT.2 PO ×2 (18:15→18:19)
[2017-05-26] MEDS ORDERED: cloNIDine HCL 0.1 MG/24 HR PATCH.TDWK TD SCH (09:00)
== END 2017-05-25 18:38 | disposition home or self-care (01) | DRG 73 ==
LOC: SED 01:34 → STU 06:31
PROVIDERS: ADMIT Internal Medicine; ATTEND Internal Medicine
PROC: 5A1D70Z Performance of Urinary Filtration, Intermittent, Less than 6 Hours Per Day (ICD-10-PCS; principal; 2017-05-24)
DX: E10.43 Type 1 diabetes mellitus with diabetic autonomic (poly)neuropathy (principal); N18.6 End stage renal disease; I13.2 Hypertensive heart and chronic kidney disease with heart failure and with stage 5 chronic kidney disease, or end stage renal disease; E10.22 Type 1 diabetes mellitus with diabetic chronic kidney disease; I42.0 Dilated cardiomyopathy; E87.5 Hyperkalemia; K21.9 Gastro-esophageal reflux disease without esophagitis; K31.84 Gastroparesis; E10.319 Type 1 diabetes mellitus with unspecified diabetic retinopathy without macular edema; G89.4 Chronic pain syndrome; E87.70 Fluid overload, unspecified; I50.9 Heart failure, unspecified; D63.8 Anemia in other chronic diseases classified elsewhere; F32.9 Major depressive disorder, single episode, unspecified; H54.7 Unspecified visual loss; F19.10 Other psychoactive substance abuse, uncomplicated; K29.70 Gastritis, unspecified, without bleeding; K27.9 Peptic ulcer, site unspecified, unspecified as acute or chronic, without hemorrhage or perforation; Z79.4 Long term (current) use of insulin; Z99.2 Dependence on renal dialysis; Z87.891 Personal history of nicotine dependence; Z88.5 Allergy status to narcotic agent; Z88.8 Allergy status to other drugs, medicaments and biological substances; Z91.040 Latex allergy status
CPT/HCPCS: 36415; 71045; 80048; 80053; 80061; 82150-TC; 82962; 83036; 83605; 83690-TC; 83880; 84439; 84443-TC; 84484; 85025; 87040-TC; 87081; 90935; 93005; 93306; 96374; 96375; 96376; 99285; C9113; J0610; J1200; J1815; J1885; J2405; J2765; J7030

== ENCOUNTER 2017-06-03 21:28 | Emergency (ER) | payer OTHER ==
[~2017-06-03] VITALS: Ht 170.2 cm; Wt 63.5 kg
[~2017-06-03 21:28] MED LIST changes: +CAT.2 PO
[2017-06-03 21:34] VITALS: BP_SYST 185
[2017-06-03] MEDS ORDERED: ONDANSETRON HCL 4 MG/2 ML VIAL IVP ONE ×2 (21:45→23:00)
[2017-06-03] MEDS ORDERED: KETOROLAC TROMETHAMINE 30 MG VIAL IVP ONE (21:45)
[2017-06-03 22:05] LABS: BASOPHILS % (AUTO) 0.2 % (0.0-2.0); EOSINOPHILS % (AUTO) 1.2 % (0.0-4.0); HEMATOCRIT 34.7 % (36-48); HEMOGLOBIN 11.2 g/dL (12.0-16.0); LYMPHOCYTES # (AUTO) 1.7 K/uL (1.0-5.5); LYMPHOCYTES % (AUTO) 43.4 % (20.5-51.5); MEAN CORPUSCULAR HEMOGLOBIN 31 pg (27-31); MEAN CORPUSCULAR HGB CONC 32 % (32-36); MEAN CORPUSCULAR VOLUME 97 fL (79.0-98.0); MONOCYTES # (AUTO) 0.3 K/uL (0.0-1.0); MONOCYTES % (AUTO) 7.5 % (1.7-9.3); NEUTROPHILS # (AUTO) 1.9 K/uL (1.8-7.7); NEUTROPHILS % (AUTO) 47.7 % (40.0-70.0); PLATELET COUNT (AUTO) 114 K/uL (130-430); RED BLOOD CELL COUNT(AUTO) 3.58 MIL/uL (4.2-6.2); WHITE BLOOD COUNT (AUTO) 3.9 K/uL (4.8-10.8)
[2017-06-03 22:16] LABS: CALCIUM 9.2 mg/dL (8.4-11.0); CREATININE 5.86 mg/dL (0.55-1.30); POTASSIUM 4.6 mmol/L (3.5-5.1)
[2017-06-03 22:22] LABS: ALBUMIN 3.7 g/dL (3.4-4.8); TOTAL BILIRUBIN 0.7 mg/dL (0.0-1.0)
[2017-06-03] MEDS ORDERED: fentaNYL CITRATE/PF 100 MCG/2 ML AMP IVP ONE (23:00)
[2017-06-04] MEDS ORDERED: PROMETHAZINE HCL 25 MG/ML AMP IVP ONE
[2017-06-04] MEDS ORDERED: fentaNYL CITRATE/PF 100 MCG/2 ML AMP IVP ONE (00:45)
[2017-06-04] MEDS ORDERED: DIPHENHYDRAMINE INJ 50 MG/ML VIAL IVP ONE (00:45)
[2017-06-04] MEDS ORDERED: METOCLOPRAMIDE HCL 10 MG/2 ML VIAL IVP ONE (00:45)
[2017-06-04] MEDS ORDERED: CARV3.1246 PO (00:55)
[2017-06-04] MEDS ORDERED: NIFE10CA19 PO (00:55)
[2017-06-04 01:10] VITALS: BP_SYST 175
== END 2017-06-04 01:10 | disposition home or self-care (01) ==
LOC: SED 21:28
DX: E10.43 Type 1 diabetes mellitus with diabetic autonomic (poly)neuropathy (principal); K31.84 Gastroparesis; I13.2 Hypertensive heart and chronic kidney disease with heart failure and with stage 5 chronic kidney disease, or end stage renal disease; E10.22 Type 1 diabetes mellitus with diabetic chronic kidney disease; N18.6 End stage renal disease; I50.9 Heart failure, unspecified; Z99.2 Dependence on renal dialysis; Z79.4 Long term (current) use of insulin; Z91.040 Latex allergy status; Z88.5 Allergy status to narcotic agent; Z88.8 Allergy status to other drugs, medicaments and biological substances; Z79.899 Other long term (current) drug therapy; Z90.49 Acquired absence of other specified parts of digestive tract
CPT/HCPCS: 36415; 80053; 83690; 85025; 96374; 96375; 96376; 99284; J1200; J1885; J2405; J2550; J2765; J3010 ×2

== ENCOUNTER 2017-06-05 15:27 | Emergency (ER) | payer OTHER ==
[~2017-06-05] VITALS: Ht 170.2 cm; Wt 63.5 kg
[~2017-06-05 15:27] MED LIST changes: -BUME2TAB3 PO; +CARV3.1246 PO; -CAT1PAT TD; -DOCU250C PO; +NIFE10CA19 PO; -TOPXL100 PO
[2017-06-05 15:30] VITALS: BP_SYST 166
[2017-06-05] MEDS ORDERED: IPRATROPIUM BROM 0.5 MG/2.5 ML VIAL.NEB (ATROVENT) IH ONE (16:00)
[2017-06-05] MEDS ORDERED: ALBUTEROL SULFATE 0.083% 2.5 MG/3 ML VIAL.NEB IH ONE (16:00)
[2017-06-05] MEDS ORDERED: ASPIRIN 325 MG TABLET PO ONE (16:00)
[2017-06-05] MEDS ORDERED: methylPREDNISolone SOD SUCC/PF 62.5 MG/ML VIAL IVP ONE (16:00)
[2017-06-05 16:16] LABS: BASOPHILS % (AUTO) 0.1 % (0.0-2.0); EOSINOPHILS # (AUTO) 0.1 K/uL (0.0-0.4); EOSINOPHILS % (AUTO) 1.2 % (0.0-4.0); HEMOGLOBIN 12.7 g/dL (12.0-16.0); LYMPHOCYTES # (AUTO) 1.8 K/uL (1.0-5.5); LYMPHOCYTES % (AUTO) 19.5 % (20.5-51.5); MEAN CORPUSCULAR HEMOGLOBIN 32 pg (27-31); MEAN CORPUSCULAR HGB CONC 34 % (32-36); MEAN CORPUSCULAR VOLUME 96 fL (79.0-98.0); MONOCYTES # (AUTO) 0.4 K/uL (0.0-1.0); MONOCYTES % (AUTO) 4.8 % (1.7-9.3); NEUTROPHILS % (AUTO) 74.4 % (40.0-70.0); PLATELET COUNT (AUTO) 163 K/uL (130-430); RED BLOOD CELL COUNT(AUTO) 3.97 MIL/uL (4.2-6.2); RED CELL DISTRIBUTION WIDTH 14.2 % (9.0-15.0); WHITE BLOOD COUNT (AUTO) 9.3 K/uL (4.8-10.8)
[2017-06-05 16:21] LABS: CALCIUM 9.4 mg/dL (8.4-11.0); CREATININE 5.64 mg/dL (0.55-1.30); POTASSIUM 5.1 mmol/L (3.5-5.1)
[2017-06-05 16:26] LABS: ALBUMIN 3.9 g/dL (3.4-4.8); TOTAL BILIRUBIN 0.9 mg/dL (0.0-1.0)
[2017-06-05 16:33] LABS: INR 1.1 (0.8-1.2); PROTHROMBIN TIME 11.1 SECS (9.5-12.5)
[2017-06-05] MEDS ORDERED: MEPERIDINE HCL/PF 25 MG/ML DISP.SYRIN IVP ONE (17:45)
[2017-06-05] MEDS ORDERED: ONDANSETRON HCL 4 MG/2 ML VIAL IVP ONE (17:45)
[2017-06-05] MEDS ORDERED: DIPHENHYDRAMINE INJ 50 MG/ML VIAL IVP ONE (17:45)
[2017-06-05] MEDS ORDERED: D5/0.45 NS 1,000 ML IV SCH (19:00)
[2017-06-05] MEDS ORDERED: cloNIDine HCL 0.1 MG TABLET PO PRN (19:00)
[2017-06-05] MEDS ORDERED: ONDANSETRON 4 MG ODT TAB PO PRN (19:00)
[2017-06-05] MEDS ORDERED: HYDROcodone/ACETAMIN 5-325 MG TAB (NORCO/ VICODIN) PO PRN (19:00)
[2017-06-05] MEDS ORDERED: INSULIN ASPART 100 UNITS/ML, 10 ML VIAL (NovoLOG) SUBCUT PRN (19:00)
[2017-06-05] MEDS ORDERED: NIFEDIPINE 30 MG TAB.ER.24 PO SCH (21:00)
[2017-06-05] MEDS ORDERED: hydrALAZINE HCL 25 MG TABLET PO SCH (22:00)
== END 2017-06-05 19:40 | disposition left against medical advice (07) ==
LOC: SED 15:27 → UNDOADMIN 18:56 → SMU 18:56 → UNDODISIN 19:40 → SMU 19:40
DX: R10.13 Epigastric pain (principal); R06.02 Shortness of breath; I13.2 Hypertensive heart and chronic kidney disease with heart failure and with stage 5 chronic kidney disease, or end stage renal disease; E10.22 Type 1 diabetes mellitus with diabetic chronic kidney disease; N18.6 End stage renal disease; I50.9 Heart failure, unspecified; Z99.2 Dependence on renal dialysis; Z79.4 Long term (current) use of insulin; Z76.5 Malingerer [conscious simulation]; Z88.5 Allergy status to narcotic agent; Z88.8 Allergy status to other drugs, medicaments and biological substances; Z91.040 Latex allergy status; Z79.899 Other long term (current) drug therapy
CPT/HCPCS: 36415; 71045; 80053; 82550; 83880; 84484; 85025; 85379; 85610; 85730; 87081; 93005; 94640; 96374; 96375; 99285; J1200; J2175; J2405; J2930

== ENCOUNTER 2017-07-02 06:20 | Inpatient (IN) | payer OTHER ==
[~2017-07-02] VITALS: Ht 170.2 cm; Wt 65.8 kg
[2017-07-02 06:32] VITALS: BP_SYST 199
[2017-07-02] MEDS ORDERED: PANTOPRAZOLE SODIUM 40 MG/VIAL (PROTONIX) IVP ONE (06:45)
[2017-07-02] MEDS ORDERED: MILK OF MAGNESIA 30 ML UDC PO ONE (06:45)
[2017-07-02] MEDS ORDERED: INSULIN REGULAR, HUMAN 10 UNITS/0.1 ML INJ IVP ONE (06:45)
[2017-07-02] MEDS ORDERED: LIDOCAINE VISCOUS 2%, 15 ML UDC MM ONE (06:45)
[2017-07-02 07:19] LABS: BASOPHILS # (AUTO) 0.1 K/uL (0.0-0.2); BASOPHILS % (AUTO) 0.7 % (0.0-2.0); EOSINOPHILS # (AUTO) 0.3 K/uL (0.0-0.4); EOSINOPHILS % (AUTO) 2.9 % (0.0-4.0); HEMATOCRIT 38.8 % (36-48); HEMOGLOBIN 12.7 g/dL (12.0-16.0); LYMPHOCYTES # (AUTO) 2.1 K/uL (1.0-5.5); LYMPHOCYTES % (AUTO) 23.4 % (20.5-51.5); MEAN CORPUSCULAR HEMOGLOBIN 33 pg (27-31); MEAN CORPUSCULAR HGB CONC 33 % (32-36); MEAN CORPUSCULAR VOLUME 101 fL (79.0-98.0); MONOCYTES # (AUTO) 0.6 K/uL (0.0-1.0); MONOCYTES % (AUTO) 6.6 % (1.7-9.3); NEUTROPHILS # (AUTO) 5.8 K/uL (1.8-7.7); NEUTROPHILS % (AUTO) 66.4 % (40.0-70.0); PLATELET COUNT (AUTO) 207 K/uL (130-430); RED BLOOD CELL COUNT(AUTO) 3.86 MIL/uL (4.2-6.2); WHITE BLOOD COUNT (AUTO) 8.9 K/uL (4.8-10.8)
[2017-07-02] MEDS ORDERED: MORPHINE 4 MG/ML INJ. SYRINGE IVP ONE (08:00)
[2017-07-02 08:28] LABS: CALCIUM 9.9 mg/dL (8.4-11.0); CREATININE 6.37 mg/dL (0.55-1.30); POTASSIUM 4.8 mmol/L (3.5-5.1)
[2017-07-02 08:34] LABS: ALBUMIN 3.9 g/dL (3.4-4.8)
[2017-07-02] MEDS ORDERED: MAG-AL HYDROX/SIMETH 30 ML UDC PO ONE (09:15)
[2017-07-02] MEDS ORDERED: ONDANSETRON 4 MG ODT TAB PO ONE (09:15)
[2017-07-02 09:58] VITALS: BP_SYST 161
[2017-07-02] MEDS: MORPHINE 4 MG/ML INJ. SYRINGE IVP PRN ×5 (10:24→22:00)
[2017-07-02 12:10] VITALS: BP_SYST 176
[2017-07-02] MEDS ORDERED: cloNIDine HCL 0.2 MG TABLET PO SCH (12:30)
[2017-07-02] MEDS: hydrALAZINE HCL 25 MG TABLET PO SCH ×2 (13:06→21:56)
[2017-07-02] MEDS: LACTULOSE 20 GM/30 ML UDC PO SCH ×3 (15:00→21:56)
[2017-07-02 18:14] VITALS: BP_SYST 148
[2017-07-02] MEDS ORDERED: METOCLOPRAMIDE HCL 10 MG/2 ML VIAL IVP PRN (18:30)
[2017-07-02 20:39] VITALS: BP_SYST 145
[2017-07-02] MEDS: INSULIN REGULAR, HUMAN 100 UNITS/ML, 10 ML VIAL (novoLIN R) SUBCUT PRN (21:59)
[2017-07-03 00:06] VITALS: BP_SYST 182
[2017-07-03] MEDS: MORPHINE 4 MG/ML INJ. SYRINGE IVP PRN ×9 (00:28→22:19)
[2017-07-03] MEDS: hydrALAZINE HCL 25 MG TABLET PO SCH ×3 (06:19→22:09)
[2017-07-03] MEDS ORDERED: MINERAL OIL 133 ML ENEMA RC ONE (07:45)
[2017-07-03] MEDS: LACTULOSE 20 GM/30 ML UDC PO SCH ×3 (08:44→20:11)
[2017-07-03] MEDS: POLYETHYLENE GLYCOL 3350, 17 GM/ POWD.PACK PO SCH (08:44)
[2017-07-03 09:44] VITALS: BP_SYST 166
[2017-07-03] MEDS: INSULIN REGULAR, HUMAN 100 UNITS/ML, 10 ML VIAL (novoLIN R) SUBCUT PRN ×2 (11:08→17:19)
[2017-07-03 11:58] VITALS: BP_SYST 183
[2017-07-03] MEDS: METOCLOPRAMIDE HCL 10 MG TABLET PO SCH ×2 (13:21→22:10)
[2017-07-03 16:00] VITALS: BP_SYST 183
[2017-07-03] MEDS: CIPROFLOXACIN HCL 0.3% EYE DRP 2.5 ML DROPS OP SCH ×2 (18:49→22:13)
[2017-07-03] MEDS ORDERED: CIPROFLOXACIN HCL 0.3% EYE DRP 2.5 ML DROPS OP SCH (19:00)
[2017-07-03 19:43] VITALS: BP_SYST 170
[2017-07-03] MEDS: ERYTHROMYCIN LACTOBIONATE 500 MG in NS 50 ML IV SCH (22:10)
[2017-07-04] VITALS: BP_SYST 166
[2017-07-04] MEDS: MORPHINE 4 MG/ML INJ. SYRINGE IVP PRN ×8 (00:26→23:39)
[2017-07-04] MEDS: CIPROFLOXACIN HCL 0.3% EYE DRP 2.5 ML DROPS OP SCH ×6 (03:46→22:52)
[2017-07-04] MEDS: hydrALAZINE HCL 20 MG/ML VIAL IVP PRN ×3 (05:10→21:07)
[2017-07-04] MEDS: ERYTHROMYCIN LACTOBIONATE 500 MG in NS 50 ML IV SCH ×3 (05:35→22:52)
[2017-07-04] MEDS: hydrALAZINE HCL 25 MG TABLET PO SCH ×3 (05:35→22:52)
[2017-07-04] MEDS: METOCLOPRAMIDE HCL 10 MG TABLET PO SCH ×3 (06:00→22:00)
[2017-07-04 08:00] VITALS: BP_SYST 172
[2017-07-04] MEDS: POLYETHYLENE GLYCOL 3350, 17 GM/ POWD.PACK PO SCH (09:00)
[2017-07-04] MEDS: LACTULOSE 20 GM/30 ML UDC PO SCH ×3 (09:22→20:56)
[2017-07-04] MEDS: INSULIN REGULAR, HUMAN 100 UNITS/ML, 10 ML VIAL (novoLIN R) SUBCUT PRN ×2 (11:34→17:23)
[2017-07-04 12:33] VITALS: BP_SYST 199
[2017-07-04 16:36] VITALS: BP_SYST 178
[2017-07-04 20:55] VITALS: BP_SYST 171
[2017-07-05 00:35] VITALS: BP_SYST 186
[2017-07-05] MEDS: MORPHINE 4 MG/ML INJ. SYRINGE IVP PRN ×8 (01:51→23:11)
[2017-07-05] MEDS: CIPROFLOXACIN HCL 0.3% EYE DRP 2.5 ML DROPS OP SCH ×6 (02:31→23:18)
[2017-07-05] MEDS: ERYTHROMYCIN LACTOBIONATE 500 MG in NS 50 ML IV SCH ×3 (05:21→23:18)
[2017-07-05] MEDS: hydrALAZINE HCL 25 MG TABLET PO SCH ×3 (05:26→23:11)
[2017-07-05] MEDS: METOCLOPRAMIDE HCL 10 MG TABLET PO SCH ×3 (05:26→23:11)
[2017-07-05] MEDS: INSULIN REGULAR, HUMAN 100 UNITS/ML, 10 ML VIAL (novoLIN R) SUBCUT PRN ×3 (06:07→21:00)
[2017-07-05 06:28] LABS: EOSINOPHILS # (AUTO) 0.4 K/uL (0.0-0.4); HEMOGLOBIN 11.9 g/dL (12.0-16.0); MONOCYTES # (AUTO) 0.5 K/uL (0.0-1.0); NEUTROPHILS # (AUTO) 4.6 K/uL (1.8-7.7)
[2017-07-05 06:52] LABS: BASOPHILS % (AUTO) 0.1 % (0.0-2.0); EOSINOPHILS % (AUTO) 5.8 % (0.0-4.0); HEMATOCRIT 36.1 % (36-48); LYMPHOCYTES # (AUTO) 1.2 K/uL (1.0-5.5); LYMPHOCYTES % (AUTO) 17.8 % (20.5-51.5); MEAN CORPUSCULAR HEMOGLOBIN 34 pg (27-31); MEAN CORPUSCULAR HGB CONC 33 % (32-36); MEAN CORPUSCULAR VOLUME 102 fL (79.0-98.0); NEUTROPHILS % (AUTO) 68.3 % (40.0-70.0); PLATELET COUNT (AUTO) 171 K/uL (130-430); RED BLOOD CELL COUNT(AUTO) 3.54 MIL/uL (4.2-6.2); RED CELL DISTRIBUTION WIDTH 17.7 % (9.0-15.0); WHITE BLOOD COUNT (AUTO) 6.7 K/uL (4.8-10.8)
[2017-07-05 06:58] LABS: ALBUMIN 3.6 g/dL (3.4-4.8); CALCIUM 9.2 mg/dL (8.4-11.0); CREATININE 7.13 mg/dL (0.55-1.30); PHOSPHORUS 5.8 mg/dL (2.7-4.5); POTASSIUM 5.3 mmol/L (3.5-5.1)
[2017-07-05 08:00] VITALS: BP_SYST 179
[2017-07-05] MEDS: hydrALAZINE HCL 20 MG/ML VIAL IVP PRN ×2 (08:22→10:56)
[2017-07-05] MEDS: LACTULOSE 20 GM/30 ML UDC PO SCH ×3 (08:23→20:51)
[2017-07-05] MEDS: POLYETHYLENE GLYCOL 3350, 17 GM/ POWD.PACK PO SCH (08:23)
[2017-07-05 13:16] VITALS: BP_SYST 188
[2017-07-05] MEDS: DIPHENHYDRAMINE HCL 25 MG CAPSULE PO PRN (14:23)
[2017-07-05] MEDS ORDERED: ENALAPRILAT DIHYDRATE 1.25 MG/ML VIAL IVP PRN (15:00)
[2017-07-05 16:25] VITALS: BP_SYST 154
[2017-07-05 19:45] VITALS: BP_SYST 163
[2017-07-05] MEDS: CARVEDILOL 3.125 MG TABLET (COREG) PO SCH (20:51)
[2017-07-05 23:56] VITALS: BP_SYST 170
[2017-07-06] MEDS: CIPROFLOXACIN HCL 0.3% EYE DRP 2.5 ML DROPS OP SCH ×4 (03:57→15:08)
[2017-07-06] MEDS: MORPHINE 4 MG/ML INJ. SYRINGE IVP PRN ×3 (04:02→12:03)
[2017-07-06] MEDS: DIPHENHYDRAMINE HCL 25 MG CAPSULE PO PRN ×2 (04:05→07:49)
[2017-07-06] MEDS: METOCLOPRAMIDE HCL 10 MG TABLET PO SCH ×2 (06:47→15:12)
[2017-07-06] MEDS: hydrALAZINE HCL 25 MG TABLET PO SCH ×2 (06:48→15:12)
[2017-07-06] MEDS: ERYTHROMYCIN LACTOBIONATE 500 MG in NS 50 ML IV SCH ×2 (06:50→14:00)
[2017-07-06] MEDS: INSULIN REGULAR, HUMAN 100 UNITS/ML, 10 ML VIAL (novoLIN R) SUBCUT PRN (08:12)
[2017-07-06 08:34] VITALS: BP_SYST 141
[2017-07-06] MEDS: LACTULOSE 20 GM/30 ML UDC PO SCH ×2 (09:00→15:00)
[2017-07-06] MEDS: POLYETHYLENE GLYCOL 3350, 17 GM/ POWD.PACK PO SCH (09:00)
[2017-07-06] MEDS ORDERED: NIFEDIPINE 30 MG TAB.ER.24 PO SCH (09:00)
[2017-07-06] MEDS: CARVEDILOL 3.125 MG TABLET (COREG) PO SCH (10:02)
[2017-07-06 12:00] VITALS: BP_SYST 154
[2017-07-06] MEDS ORDERED: METO-290 PO (14:51)
[2017-07-06 15:26] VITALS: BP_SYST 143
[2017-07-06 16:24] VITALS: BP_SYST 175
== END 2017-07-06 16:10 | disposition home or self-care (01) | DRG 73 ==
LOC: SED 06:20 → SMU 09:41
PROVIDERS: ADMIT Internal Medicine; ATTEND Internal Medicine
PROC: 5A1D70Z Performance of Urinary Filtration, Intermittent, Less than 6 Hours Per Day (ICD-10-PCS; principal; 2017-07-02)
PROC: 5A1D70Z Performance of Urinary Filtration, Intermittent, Less than 6 Hours Per Day (ICD-10-PCS; 2017-07-05)
DX: E10.43 Type 1 diabetes mellitus with diabetic autonomic (poly)neuropathy (principal); N18.6 End stage renal disease; I13.2 Hypertensive heart and chronic kidney disease with heart failure and with stage 5 chronic kidney disease, or end stage renal disease; E10.22 Type 1 diabetes mellitus with diabetic chronic kidney disease; R18.8 Other ascites; I42.9 Cardiomyopathy, unspecified; E87.70 Fluid overload, unspecified; M54.9 Dorsalgia, unspecified; G89.4 Chronic pain syndrome; I50.9 Heart failure, unspecified; K59.00 Constipation, unspecified; K31.84 Gastroparesis; Z99.2 Dependence on renal dialysis; Z88.8 Allergy status to other drugs, medicaments and biological substances; Z91.040 Latex allergy status
CPT/HCPCS: 36415; 71045; 80053; 82962; 83690-TC; 84100-TC; 84703; 85025; 87040-TC; 87081; 90935; 90937; 96374; 96375; 99285; C9113; J0360; J1364; J1815; J2001; J2270; J7030; J8597; Q0162; Q0163

== ENCOUNTER 2017-11-01 08:54 | Inpatient (IN) | payer OTHER ==
[~2017-11-01] VITALS: Ht 170.2 cm; Wt 67.1 kg
[~2017-11-01 08:54] MED LIST changes: +LEVO250T2 PO; +METO-290 PO; +NIFE10CA PO; -NIFE10CA19 PO; +VIS25 PO
[2017-11-01 09:00] VITALS: BP_SYST 163
[2017-11-01] MEDS ORDERED: ACETAMINOPHEN 325 MG TABLET PO ONE (09:15)
[2017-11-01] MEDS ORDERED: MORPHINE 4 MG/ML INJ. SYRINGE IVP ONE (09:15)
[2017-11-01] MEDS ORDERED: PIPERACILLIN/TAZO 3.38 GM in NS 50 ML IV ONE (09:15)
[2017-11-01] MEDS ORDERED: DIPHENHYDRAMINE INJ 50 MG/ML VIAL IVP ONE (09:15)
[2017-11-01 09:49] LABS: BASOPHILS # (AUTO) 0.1 K/uL (0.0-0.2); BASOPHILS % (AUTO) 0.6 % (0.0-2.0); EOSINOPHILS # (AUTO) 0.2 K/uL (0.0-0.4); EOSINOPHILS % (AUTO) 1.2 % (0.0-4.0); HEMOGLOBIN 10.9 g/dL (12.0-16.0); LYMPHOCYTES # (AUTO) 1.8 K/uL (1.0-5.5); LYMPHOCYTES % (AUTO) 12.3 % (20.5-51.5); MEAN CORPUSCULAR HEMOGLOBIN 29 pg (27-31); MEAN CORPUSCULAR HGB CONC 31 % (32-36); MEAN CORPUSCULAR VOLUME 92 fL (79.0-98.0); MONOCYTES # (AUTO) 0.8 K/uL (0.0-1.0); MONOCYTES % (AUTO) 5.1 % (1.7-9.3); NEUTROPHILS % (AUTO) 80.8 % (40.0-70.0); PLATELET COUNT (AUTO) 346 K/uL (130-430); RED BLOOD CELL COUNT(AUTO) 3.79 MIL/uL (4.2-6.2); RED CELL DISTRIBUTION WIDTH 16.3 % (9.0-15.0); WHITE BLOOD COUNT (AUTO) 14.9 K/uL (4.8-10.8)
[2017-11-01] MEDS ORDERED: PIPERACILLIN/TAZOBACTAM 3.375 GM/VIAL (ZOSYN) IV ONE (09:52)
[2017-11-01 10:06] LABS: INR 1.3 (0.8-1.2); PROTHROMBIN TIME 13.4 SECS (9.5-12.5)
[2017-11-01 11:36] LABS: ACETONE, SERUM NEGATIVE (NEGATIVE)
[2017-11-01] MEDS ORDERED: VANCOMYCIN HCL 1,000 MG in NS 250 ML IV ONE (11:45)
[2017-11-01 11:50] LABS: SODIUM SERUM 138 mmol/L (136-145)
[2017-11-01 11:54] LABS: ANION GAP 10 (5-15); CHLORIDE 103 mmol/L (98-107); CREATININE 4.82 mg/dL (0.55-1.30); GFR AFRICAN AMERICAN 14 mL/min (>90); GLUCOSE 181 mg/dL (70-99); POTASSIUM 6.2 mmol/L (3.5-5.1); UREA NITROGEN, BLOOD 24 mg/dL (8-21)
[2017-11-01 11:55] LABS: TOTAL BILIRUBIN 0.8 mg/dL (0.0-1.0)
[2017-11-01 11:56] LABS: ALANINE AMINOTRANSFERASE 13 U/L (12-78); ALBUMIN 2.3 g/dL (3.4-4.8); ASPARTATE AMINOTRANSFERASE 15 U/L (10-37); LIPASE 32 U/L (73-393)
[2017-11-01] MEDS ORDERED: VANCOMYCIN HCL 1000 MG/VIAL IV ONE (12:30)
[2017-11-01 12:39] VITALS: BP_SYST 157
[2017-11-01 12:44] VITALS: BP_SYST 157
[2017-11-01] MEDS ORDERED: DEXTROSE 50% JECT 50 ML DISP.SYRIN IVP PRN (12:45)
[2017-11-01] MEDS ORDERED: cloNIDine HCL 0.2 MG TABLET PO SCH (13:00)
[2017-11-01] MEDS ORDERED: HYDROcodone/ACETAMIN 5-325 MG TAB (NORCO/ VICODIN) PO PRN (13:00)
[2017-11-01] MEDS ORDERED: CARVEDILOL 3.125 MG TABLET (COREG) PO ONE (13:30)
[2017-11-01] MEDS ORDERED: NIFEDIPINE 90 MG TABLET.SA (PROCARDIA XL 90 MG) PO ONE (14:30)
[2017-11-01 15:08] VITALS: BP_SYST 135
[2017-11-01] MEDS: hydrALAZINE HCL 25 MG TABLET PO SCH ×2 (15:26→21:58)
[2017-11-01] MEDS: METOCLOPRAMIDE HCL 10 MG TABLET PO SCH ×2 (15:26→21:58)
[2017-11-01] MEDS ORDERED: ACETAMINOPHEN 325 MG TABLET PO PRN (16:45)
[2017-11-01] MEDS ORDERED: ONDANSETRON HCL 4 MG/2 ML VIAL IVP PRN (16:45)
[2017-11-01] MEDS ORDERED: cefTRIAXone 1 GM in D5W 50 ML IV SCH (17:00)
[2017-11-01] MEDS: SODIUM POLYSTYRENE SULFONATE 15 GM/60 ML UDBTL PO ONE ×2 (17:28→17:35)
[2017-11-01] MEDS: MORPHINE 4 MG/ML INJ. SYRINGE IVP PRN ×2 (17:29→22:03)
[2017-11-01 20:00] VITALS: BP_SYST 111
[2017-11-01] MEDS ORDERED: CARVEDILOL 3.125 MG TABLET (COREG) PO SCH (21:00)
[2017-11-01] MEDS: cefTRIAXone 1 GM in D5W 50 ML IV SCH (21:55)
[2017-11-02] VITALS (11 sets, daily range): BP systolic 63–140
[2017-11-02] MEDS: MORPHINE 4 MG/ML INJ. SYRINGE IVP PRN ×4 (02:01→12:48)
[2017-11-02] MEDS: METOCLOPRAMIDE HCL 10 MG TABLET PO SCH ×4 (06:27→22:50)
[2017-11-02] MEDS: hydrALAZINE HCL 25 MG TABLET PO SCH ×2 (06:27→14:00)
[2017-11-02 06:49] LABS: BASOPHILS % (AUTO) 0.4 % (0.0-2.0); EOSINOPHILS # (AUTO) 0.1 K/uL (0.0-0.4); EOSINOPHILS % (AUTO) 1.1 % (0.0-4.0); HEMATOCRIT 33.8 % (36-48); HEMOGLOBIN 10.6 g/dL (12.0-16.0); LYMPHOCYTES # (AUTO) 0.8 K/uL (1.0-5.5); LYMPHOCYTES % (AUTO) 8.7 % (20.5-51.5); MEAN CORPUSCULAR HEMOGLOBIN 29 pg (27-31); MEAN CORPUSCULAR HGB CONC 31 % (32-36); MEAN CORPUSCULAR VOLUME 92 fL (79.0-98.0); MONOCYTES # (AUTO) 0.7 K/uL (0.0-1.0); MONOCYTES % (AUTO) 6.9 % (1.7-9.3); NEUTROPHILS % (AUTO) 82.9 % (40.0-70.0); PLATELET COUNT (AUTO) 254 K/uL (130-430); RED BLOOD CELL COUNT(AUTO) 3.68 MIL/uL (4.2-6.2); RED CELL DISTRIBUTION WIDTH 16.1 % (9.0-15.0); WHITE BLOOD COUNT (AUTO) 9.6 K/uL (4.8-10.8)
[2017-11-02 07:24] LABS: CALCIUM 8.6 mg/dL (8.4-11.0); CREATININE 5.44 mg/dL (0.55-1.30); PHOSPHORUS 3.4 mg/dL (2.7-4.5)
[2017-11-02 07:39] LABS: POTASSIUM 6.7 mmol/L (3.5-5.1)
[2017-11-02] MEDS ORDERED: NIFEDIPINE 90 MG TABLET.SA (PROCARDIA XL 90 MG) PO SCH (09:00)
[2017-11-02] MEDS ORDERED: CARVEDILOL 25 MG TABLET (COREG) PO SCH ×2 (09:54→21:00)
[2017-11-02] MEDS ORDERED: SODIUM POLYSTYRENE SULFONATE 15 GM/60 ML UDBTL PO ONE (10:15)
[2017-11-02] MEDS: INSULIN REGULAR, HUMAN 100 UNITS/ML, 10 ML VIAL (novoLIN R) SUBCUT PRN (17:22)
[2017-11-02] MEDS: cefTRIAXone 1 GM in D5W 50 ML IV SCH (18:24)
[2017-11-02] MEDS ORDERED: PIPERACILLIN/TAZO 3.375/DEX-IS 50 ML IV SCH (19:00)
[2017-11-02 19:17] LABS: INR 1.8 (0.8-1.2); PROTHROMBIN TIME 18.4 SECS (9.5-12.5)
[2017-11-02] MEDS ORDERED: VANCOMYCIN HCL 1 GM/NS PREMIX 250 ML IV ONE (20:00)
[2017-11-02] MEDS ORDERED: ALPRAZolam 0.25 MG TABLET ONE (20:08)
[2017-11-02] MEDS: NOREPINEPHRINE BITARTRATE 4 MG in NS 246 ML IV PRN (20:44)
[2017-11-02] MEDS ORDERED: VANCOMYCIN HCL 1000 MG/VIAL IV ONE (23:27)
[2017-11-03] VITALS (24 sets, daily range): BP systolic 84–137
[2017-11-03] MEDS: NOREPINEPHRINE BITARTRATE 4 MG in NS 246 ML IV PRN ×5 (01:04→20:06)
[2017-11-03] MEDS: MORPHINE 2 MG/ML INJ. SYRINGE IVP PRN ×6 (01:21→22:18)
[2017-11-03 06:01] LABS: CALCIUM 8.7 mg/dL (8.4-11.0); CREATININE 4.12 mg/dL (0.55-1.30)
[2017-11-03] MEDS: METOCLOPRAMIDE HCL 10 MG TABLET PO SCH ×5 (06:13→22:14)
[2017-11-03 06:25] LABS: EOSINOPHILS # (AUTO) 0.2 K/uL (0.0-0.4)
[2017-11-03 06:28] LABS: BASOPHILS # (AUTO) 0.1 K/uL (0.0-0.2); EOSINOPHILS % (AUTO) 1.9 % (0.0-4.0); HEMATOCRIT 40.5 % (36-48); LYMPHOCYTES # (AUTO) 2.6 K/uL (1.0-5.5); LYMPHOCYTES % (AUTO) 20.4 % (20.5-51.5); MEAN CORPUSCULAR HEMOGLOBIN 30 pg (27-31); MEAN CORPUSCULAR HGB CONC 32 % (32-36); MEAN CORPUSCULAR VOLUME 93 fL (79.0-98.0); MONOCYTES # (AUTO) 0.9 K/uL (0.0-1.0); MONOCYTES % (AUTO) 6.8 % (1.7-9.3); NEUTROPHILS # (AUTO) 8.7 K/uL (1.8-7.7); NEUTROPHILS % (AUTO) 69.9 % (40.0-70.0); PLATELET COUNT (AUTO) 275 K/uL (130-430); RED BLOOD CELL COUNT(AUTO) 4.37 MIL/uL (4.2-6.2); WHITE BLOOD COUNT (AUTO) 12.5 K/uL (4.8-10.8)
[2017-11-03] MEDS: INSULIN REGULAR, HUMAN 100 UNITS/ML, 10 ML VIAL (novoLIN R) SUBCUT PRN ×2 (06:28→20:37)
[2017-11-03] MEDS: DIPHENHYDRAMINE INJ 50 MG/ML VIAL IVP PRN ×2 (10:18→16:45)
[2017-11-03] MEDS ORDERED: NS 500 ML IV ONE (11:00)
[2017-11-03] MEDS ORDERED: HYDROCORTISONE SOD SUCC 100 MG/2 ML VIAL IVP ONE (13:15)
[2017-11-03] MEDS: cefTRIAXone 1 GM in D5W 50 ML IV SCH (17:48)
[2017-11-03] MEDS ORDERED: ALBUMIN HUMAN 5% 500 ML IV ONE (18:15)
[2017-11-04] VITALS (20 sets, daily range): BP systolic 102–129
[2017-11-04] MEDS: DIPHENHYDRAMINE INJ 50 MG/ML VIAL IVP PRN ×2 (02:08→07:25)
[2017-11-04] MEDS: MORPHINE 2 MG/ML INJ. SYRINGE IVP PRN ×5 (03:07→23:31)
[2017-11-04] MEDS: ALPRAZolam 0.25 MG TABLET PO PRN (03:42)
[2017-11-04] MEDS: METOCLOPRAMIDE HCL 10 MG TABLET PO SCH ×5 (06:00→22:00)
[2017-11-04] MEDS: INSULIN REGULAR, HUMAN 100 UNITS/ML, 10 ML VIAL (novoLIN R) SUBCUT PRN ×3 (06:49→16:33)
[2017-11-04 08:59] LABS: BASOPHILS % (AUTO) 0.3 % (0.0-2.0); EOSINOPHILS % (AUTO) 0.1 % (0.0-4.0); HEMATOCRIT 36.2 % (36-48); HEMOGLOBIN 11.4 g/dL (12.0-16.0); LYMPHOCYTES # (AUTO) 1.1 K/uL (1.0-5.5); LYMPHOCYTES % (AUTO) 7.6 % (20.5-51.5); MEAN CORPUSCULAR HEMOGLOBIN 29 pg (27-31); MEAN CORPUSCULAR HGB CONC 32 % (32-36); MEAN CORPUSCULAR VOLUME 91 fL (79.0-98.0); MONOCYTES # (AUTO) 0.4 K/uL (0.0-1.0); MONOCYTES % (AUTO) 2.7 % (1.7-9.3); NEUTROPHILS # (AUTO) 13.2 K/uL (1.8-7.7); NEUTROPHILS % (AUTO) 89.3 % (40.0-70.0); PLATELET COUNT (AUTO) 252 K/uL (130-430); RED CELL DISTRIBUTION WIDTH 17.2 % (9.0-15.0); WHITE BLOOD COUNT (AUTO) 14.7 K/uL (4.8-10.8)
[2017-11-04 09:15] LABS: POTASSIUM 4.9 mmol/L (3.5-5.1)
[2017-11-04 09:16] LABS: CALCIUM 8.7 mg/dL (8.4-11.0)
[2017-11-04 09:17] LABS: CREATININE 4.89 mg/dL (0.55-1.30)
[2017-11-04] MEDS ORDERED: HYDROCORTISONE 0.5%, 28.35 GM TOPICAL CREAM TP PRN (10:15)
[2017-11-04] MEDS ORDERED: HYDROcodone/ACETAMIN 5-325 MG TAB (NORCO/ VICODIN) PO PRN (14:30)
[2017-11-04] MEDS ORDERED: PREDNISONE 5 MG TABLET PO ONE (16:00)
[2017-11-04] MEDS ORDERED: DEXTROSE 50% JECT 50 ML DISP.SYRIN IVP PRN (17:14)
[2017-11-04] MEDS: cefTRIAXone 1 GM in D5W 50 ML IV SCH (18:01)
[2017-11-04] MEDS: MORPHINE 4 MG/ML INJ. SYRINGE IVP PRN (19:49)
[2017-11-04 21:45] LABS: VANCOMYCIN,RANDOM 25.3 ug/mL
[2017-11-04] MEDS: INSULIN ASPART 100 UNITS/ML, 10 ML VIAL (NovoLOG) SUBCUT PRN (22:03)
[2017-11-05] MEDS: ALPRAZolam 0.25 MG TABLET PO PRN ×4 (00:30→22:33)
[2017-11-05] MEDS: DIPHENHYDRAMINE INJ 50 MG/ML VIAL IVP PRN ×2 (00:30→16:41)
[2017-11-05 01:00] VITALS: BP_SYST 139
[2017-11-05] MEDS: MORPHINE 2 MG/ML INJ. SYRINGE IVP PRN ×2 (03:25→12:34)
[2017-11-05] MEDS: METOCLOPRAMIDE HCL 10 MG TABLET PO SCH ×3 (06:00→20:30)
[2017-11-05] MEDS: INSULIN ASPART 100 UNITS/ML, 10 ML VIAL (NovoLOG) SUBCUT PRN ×4 (06:10→20:30)
[2017-11-05 06:28] LABS: BASOPHILS % (AUTO) 0.2 % (0.0-2.0); EOSINOPHILS # (AUTO) 0.1 K/uL (0.0-0.4); EOSINOPHILS % (AUTO) 0.6 % (0.0-4.0); HEMATOCRIT 30.5 % (36-48); HEMOGLOBIN 9.8 g/dL (12.0-16.0); LYMPHOCYTES # (AUTO) 1.4 K/uL (1.0-5.5); LYMPHOCYTES % (AUTO) 14.1 % (20.5-51.5); MEAN CORPUSCULAR HEMOGLOBIN 30 pg (27-31); MEAN CORPUSCULAR HGB CONC 32 % (32-36); MEAN CORPUSCULAR VOLUME 91 fL (79.0-98.0); MONOCYTES # (AUTO) 0.5 K/uL (0.0-1.0); MONOCYTES % (AUTO) 4.8 % (1.7-9.3); NEUTROPHILS # (AUTO) 7.9 K/uL (1.8-7.7); NEUTROPHILS % (AUTO) 80.3 % (40.0-70.0); PLATELET COUNT (AUTO) 181 K/uL (130-430); RED BLOOD CELL COUNT(AUTO) 3.34 MIL/uL (4.2-6.2); RED CELL DISTRIBUTION WIDTH 16.9 % (9.0-15.0); WHITE BLOOD COUNT (AUTO) 9.9 K/uL (4.8-10.8)
[2017-11-05 06:41] LABS: CALCIUM 8.3 mg/dL (8.4-11.0); CREATININE 3.43 mg/dL (0.55-1.30); POTASSIUM 3.9 mmol/L (3.5-5.1); THYROID STIMULATING HORMONE 1.56 uIu/mL (0.34-4.82)
[2017-11-05 08:00] VITALS: BP_SYST 145
[2017-11-05] MEDS: MORPHINE 4 MG/ML INJ. SYRINGE IVP PRN ×3 (08:21→20:24)
[2017-11-05] MEDS ORDERED: PREDNISONE 5 MG TABLET PO SCH (09:00)
[2017-11-05 11:08] VITALS: BP_SYST 147
[2017-11-05] MEDS ORDERED: CARVEDILOL 3.125 MG TABLET (COREG) PO ONE (13:15)
[2017-11-05 15:58] VITALS: BP_SYST 146
[2017-11-05] MEDS: cefTRIAXone 1 GM in D5W 50 ML IV SCH (17:15)
[2017-11-05 20:00] VITALS: BP_SYST 152
[2017-11-05] MEDS: CARVEDILOL 3.125 MG TABLET (COREG) PO SCH (20:25)
[2017-11-05] MEDS ORDERED: CARVEDILOL 3.125 MG TABLET (COREG) PO SCH (21:00)
[2017-11-05 23:36] VITALS: BP_SYST 148
[2017-11-06] MEDS: DIPHENHYDRAMINE INJ 50 MG/ML VIAL IVP PRN ×2 (00:30→08:34)
[2017-11-06] MEDS: MORPHINE 4 MG/ML INJ. SYRINGE IVP PRN ×3 (00:31→08:35)
[2017-11-06] MEDS: METOCLOPRAMIDE HCL 10 MG TABLET PO SCH (06:00)
[2017-11-06] MEDS: INSULIN ASPART 100 UNITS/ML, 10 ML VIAL (NovoLOG) SUBCUT PRN (06:06)
[2017-11-06 06:09] LABS: CALCIUM 8.6 mg/dL (8.4-11.0); CREATININE 4.29 mg/dL (0.55-1.30); POTASSIUM 4.9 mmol/L (3.5-5.1)
[2017-11-06 07:15] LABS: VANCOMYCIN,RANDOM 20.3 ug/mL
[2017-11-06 07:44] VITALS: BP_SYST 171
[2017-11-06 08:34] VITALS: BP_SYST 171
[2017-11-06] MEDS: CARVEDILOL 3.125 MG TABLET (COREG) PO SCH (08:36)
[2017-11-06 09:41] VITALS: BP_SYST 166
== END 2017-11-06 11:00 | disposition left against medical advice (07) | DRG 871 ==
LOC: SED 08:54 → STU 11:35 → SIC 11-02 16:05 → STU 11-04 17:00
PROVIDERS: ADMIT Internal Medicine; ATTEND Internal Medicine
PROC: 5A1D70Z Performance of Urinary Filtration, Intermittent, Less than 6 Hours Per Day (ICD-10-PCS; principal; 2017-11-02)
PROC: 5A1D70Z Performance of Urinary Filtration, Intermittent, Less than 6 Hours Per Day (ICD-10-PCS; 2017-11-04)
DX: A41.9 Sepsis, unspecified organism (principal); N18.6 End stage renal disease; R65.21 Severe sepsis with septic shock; I13.2 Hypertensive heart and chronic kidney disease with heart failure and with stage 5 chronic kidney disease, or end stage renal disease; E10.43 Type 1 diabetes mellitus with diabetic autonomic (poly)neuropathy; E10.22 Type 1 diabetes mellitus with diabetic chronic kidney disease; D63.8 Anemia in other chronic diseases classified elsewhere; G89.4 Chronic pain syndrome; Z53.21 Procedure and treatment not carried out due to patient leaving prior to being seen by health care provider; E87.5 Hyperkalemia; F32.9 Major depressive disorder, single episode, unspecified; H54.8 Legal blindness, as defined in USA; I50.9 Heart failure, unspecified; I87.2 Venous insufficiency (chronic) (peripheral); K31.84 Gastroparesis; L29.9 Pruritus, unspecified; Z76.5 Malingerer [conscious simulation]; Z79.4 Long term (current) use of insulin; Z99.2 Dependence on renal dialysis; Z91.19 Patient's noncompliance with other medical treatment and regimen; Z79.899 Other long term (current) drug therapy; Z88.8 Allergy status to other drugs, medicaments and biological substances; Z91.040 Latex allergy status
CPT/HCPCS: 36415; 71045; 80048; 80053; 80202-TC; 82009-TC; 82533; 82962; 83036; 83605; 83690-TC; 84100-TC; 84443-TC; 84703; 85025; 85610-TC; 85730-TC; 87040-TC; 87081; 90935; 90937; 93005; 96365; 96367; 96375; 99285; J0696; J1200; J1720; J1815; J2270; J2543; J3370; J7030; J7040; J7050; J7060; J7512; J8597; P9041

== ENCOUNTER 2017-11-08 07:35 | Inpatient (IN) | payer OTHER ==
[~2017-11-08] VITALS: Ht 162.6 cm; Wt 68.3 kg
[2017-11-08 07:35] VITALS: BP_SYST 209
[~2017-11-08 07:35] MED LIST changes: -LEVO250T2 PO
[2017-11-08] MEDS ORDERED: KETAMINE HCL 50 MG/ML SYR IVP ONE ×2 (08:15)
[2017-11-08] MEDS ORDERED: hydrALAZINE HCL 20 MG/ML VIAL IVP ONE (08:15)
[2017-11-08] MEDS ORDERED: fentaNYL CITRATE/PF 100 MCG/2 ML AMP IVP ONE ×2 (08:15→10:30)
[2017-11-08] MEDS ORDERED: COMMUNICATION ORDER XX ONE ×2 (08:30→18:30)
[2017-11-08 08:38] LABS: BASOPHILS # (AUTO) 0.1 K/uL (0.0-0.2); BASOPHILS % (AUTO) 1.1 % (0.0-2.0); EOSINOPHILS # (AUTO) 0.3 K/uL (0.0-0.4); EOSINOPHILS % (AUTO) 2.6 % (0.0-4.0); HEMATOCRIT 33.8 % (36-48); HEMOGLOBIN 10.8 g/dL (12.0-16.0); LYMPHOCYTES # (AUTO) 2.1 K/uL (1.0-5.5); LYMPHOCYTES % (AUTO) 18.1 % (20.5-51.5); MEAN CORPUSCULAR HEMOGLOBIN 30 pg (27-31); MEAN CORPUSCULAR HGB CONC 32 % (32-36); MEAN CORPUSCULAR VOLUME 93 fL (79.0-98.0); MONOCYTES # (AUTO) 0.7 K/uL (0.0-1.0); MONOCYTES % (AUTO) 6.3 % (1.7-9.3); NEUTROPHILS # (AUTO) 8.2 K/uL (1.8-7.7); NEUTROPHILS % (AUTO) 71.9 % (40.0-70.0); PLATELET COUNT (AUTO) 215 K/uL (130-430); RED BLOOD CELL COUNT(AUTO) 3.65 MIL/uL (4.2-6.2); WHITE BLOOD COUNT (AUTO) 11.4 K/uL (4.8-10.8)
[2017-11-08] MEDS ORDERED: ENALAPRILAT DIHYDRATE 1.25 MG/ML VIAL IVP ONE ×2 (08:45→11:15)
[2017-11-08 08:50] LABS: CALCIUM 9.7 mg/dL (8.4-11.0); CREATININE 5.75 mg/dL (0.55-1.30)
[2017-11-08 08:56] LABS: TOTAL BILIRUBIN 0.8 mg/dL (0.0-1.0)
[2017-11-08 09:01] LABS: POTASSIUM 6.8 mmol/L (3.5-5.1)
[2017-11-08 09:06] LABS: PROTHROMBIN TIME 12.9 SECS (9.5-12.5)
[2017-11-08 09:07] LABS: INR 1.3 (0.8-1.2)
[2017-11-08] MEDS ORDERED: INSULIN REGULAR, HUMAN 10 UNITS/0.1 ML INJ IVP ONE (10:00)
[2017-11-08] MEDS ORDERED: cloNIDine HCL 0.1 MG TABLET PO ONE ×2 (10:00→12:15)
[2017-11-08] MEDS ORDERED: SODIUM BICARBONATE 8.4% JECT 50 MEQ/50 ML SYRINGE IVP ONE (10:00)
[2017-11-08] MEDS ORDERED: DEXTROSE 50% JECT 50 ML DISP.SYRIN IVP ONE (10:00)
[2017-11-08] MEDS ORDERED: PROCHLORPERAZINE EDISYLATE 10 MG/2 ML VIAL IVP ONE (10:30)
[2017-11-08] MEDS ORDERED: CALCIUM GLUCONATE 1 GM/10 ML VIAL IVP ONE (11:15)
[2017-11-08 13:10] VITALS: BP_SYST 189
[2017-11-08 16:08] VITALS: BP_SYST 141
[2017-11-08] MEDS ORDERED: cloNIDine HCL 0.2 MG TABLET PO PRN (18:00)
[2017-11-08] MEDS ORDERED: ONDANSETRON 4 MG ODT TAB PO PRN (18:00)
[2017-11-08] MEDS ORDERED: INSULIN ASPART 100 UNITS/ML, 10 ML VIAL (NovoLOG) SUBCUT PRN (18:00)
[2017-11-08 19:46] VITALS: BP_SYST 190
[2017-11-08] MEDS: CARVEDILOL 3.125 MG TABLET (COREG) PO SCH (20:47)
[2017-11-08] MEDS ORDERED: SIMETHICONE 80 MG TAB.CHEW PO PRN (23:15)
[2017-11-08] MEDS ORDERED: traMADol HCL HCL 50 MG TABLET (ULTRAM) PO PRN (23:15)
[2017-11-08] MEDS: hydrALAZINE HCL 25 MG TABLET PO SCH (23:38)
[2017-11-08] MEDS: traMADol HCL HCL 50 MG TABLET (ULTRAM) PO PRN (23:40)
[2017-11-09 01:07] VITALS: BP_SYST 161
[2017-11-09] MEDS: hydrALAZINE HCL 25 MG TABLET PO SCH ×3 (06:16→23:29)
[2017-11-09] MEDS: INSULIN ASPART 100 UNITS/ML, 10 ML VIAL (NovoLOG) SUBCUT PRN (06:20)
[2017-11-09 07:08] LABS: BASOPHILS % (AUTO) 0.4 % (0.0-2.0); EOSINOPHILS # (AUTO) 0.2 K/uL (0.0-0.4); EOSINOPHILS % (AUTO) 2.9 % (0.0-4.0); HEMATOCRIT 31.7 % (36-48); HEMOGLOBIN 9.9 g/dL (12.0-16.0); LYMPHOCYTES # (AUTO) 1.7 K/uL (1.0-5.5); MEAN CORPUSCULAR HEMOGLOBIN 29 pg (27-31); MEAN CORPUSCULAR HGB CONC 31 % (32-36); MEAN CORPUSCULAR VOLUME 92 fL (79.0-98.0); MONOCYTES # (AUTO) 0.7 K/uL (0.0-1.0); NEUTROPHILS # (AUTO) 5.4 K/uL (1.8-7.7); NEUTROPHILS % (AUTO) 66.7 % (40.0-70.0); PLATELET COUNT (AUTO) 176 K/uL (130-430); RED BLOOD CELL COUNT(AUTO) 3.42 MIL/uL (4.2-6.2); RED CELL DISTRIBUTION WIDTH 18.1 % (9.0-15.0); WHITE BLOOD COUNT (AUTO) 8.1 K/uL (4.8-10.8)
[2017-11-09 08:00] VITALS: BP_SYST 147
[2017-11-09] MEDS ORDERED: DIATR MEGLU/DIATRIZ SOD 30 ML SOLUTION PO ONE (08:08)
[2017-11-09] MEDS: traMADol HCL HCL 50 MG TABLET (ULTRAM) PO PRN (08:52)
[2017-11-09] MEDS: CARVEDILOL 3.125 MG TABLET (COREG) PO SCH ×2 (09:00→21:35)
[2017-11-09] MEDS ORDERED: IOHEXOL 100 ML IV ONE (12:30)
[2017-11-09 12:36] VITALS: BP_SYST 153
[2017-11-09 16:19] VITALS: BP_SYST 169
[2017-11-09 16:36] LABS: CALCIUM 8.7 mg/dL (8.4-11.0); CREATININE 4.86 mg/dL (0.55-1.30)
[2017-11-09 16:41] LABS: POTASSIUM 6.1 mmol/L (3.5-5.1)
[2017-11-09] MEDS: HYDROmorphone 1 MG INJ. 1 MG/ML AMPUL IVP PRN ×2 (17:18→21:24)
[2017-11-09 17:54] LABS: INR 1.3 (0.8-1.2); PROTHROMBIN TIME 13.7 SECS (9.5-12.5)
[2017-11-09 23:00] VITALS: BP_SYST 148
[2017-11-10 00:10] VITALS: BP_SYST 148
[2017-11-10] MEDS: HYDROmorphone 1 MG INJ. 1 MG/ML AMPUL IVP PRN ×4 (03:28→20:35)
[2017-11-10] MEDS ORDERED: HYDROmorphone 1 MG INJ. 1 MG/ML AMPUL IM PRN (05:45)
[2017-11-10] MEDS: INSULIN ASPART 100 UNITS/ML, 10 ML VIAL (NovoLOG) SUBCUT PRN ×3 (06:12→21:17)
[2017-11-10] MEDS: hydrALAZINE HCL 25 MG TABLET PO SCH ×3 (06:15→21:12)
[2017-11-10 07:17] VITALS: BP_SYST 141
[2017-11-10 08:08] VITALS: BP_SYST 164
[2017-11-10] MEDS: CARVEDILOL 3.125 MG TABLET (COREG) PO SCH ×2 (09:00→21:13)
[2017-11-10] MEDS ORDERED: LORazepam 2 MG/ML VIAL IVP ONE (09:30)
[2017-11-10] MEDS ORDERED: LORazepam 2 MG/ML VIAL ONE (09:40)
[2017-11-10] MEDS: traMADol HCL HCL 50 MG TABLET (ULTRAM) PO PRN ×2 (09:40→17:42)
[2017-11-10 09:57] LABS: CALCIUM 8.3 mg/dL (8.4-11.0); CREATININE 3.96 mg/dL (0.55-1.30); POTASSIUM 5.2 mmol/L (3.5-5.1)
[2017-11-10 12:52] VITALS: BP_SYST 194
[2017-11-10] MEDS: ALPRAZolam 0.25 MG TABLET PO PRN ×2 (15:41→22:18)
[2017-11-10 16:40] VITALS: BP_SYST 156
[2017-11-10 20:30] VITALS: BP_SYST 149
[2017-11-11 00:35] VITALS: BP_SYST 145
[2017-11-11] MEDS: traMADol HCL HCL 50 MG TABLET (ULTRAM) PO PRN ×2 (01:33→15:48)
[2017-11-11] MEDS: HYDROmorphone 1 MG INJ. 1 MG/ML AMPUL IVP PRN ×3 (02:33→13:43)
[2017-11-11] MEDS: ALPRAZolam 0.25 MG TABLET PO PRN ×3 (06:32→21:03)
[2017-11-11] MEDS: hydrALAZINE HCL 25 MG TABLET PO SCH ×3 (06:32→21:04)
[2017-11-11] MEDS: INSULIN ASPART 100 UNITS/ML, 10 ML VIAL (NovoLOG) SUBCUT PRN ×3 (06:35→17:42)
[2017-11-11 07:17] VITALS: BP_SYST 157
[2017-11-11] MEDS: CARVEDILOL 3.125 MG TABLET (COREG) PO SCH ×2 (08:12→20:21)
[2017-11-11 08:19] VITALS: BP_SYST 185
[2017-11-11 08:29] LABS: AFP, TUMOR MARKER 1.6 ng/mL (0.0-8.3); HEPATITIS A AB, IgM Negative (Negative); HEPATITIS B CORE AB, IgM Negative (Negative); HEPATITIS B SURFACE AG Negative (Negative)
[2017-11-11 12:30] VITALS: BP_SYST 145
[2017-11-11] MEDS: SODIUM POLYSTYRENE SULFONATE 15 GM/60 ML UDBTL PO ONE ×2 (13:30→13:45)
[2017-11-11 16:25] VITALS: BP_SYST 143
[2017-11-11] MEDS ORDERED: traMADol HCL HCL 50 MG TABLET (ULTRAM) PO PRN (17:30)
[2017-11-11] MEDS ORDERED: HYDROmorphone 1 MG INJ. 1 MG/ML AMPUL IVP ONE (20:15)
[2017-11-11 20:44] VITALS: BP_SYST 165
== END 2017-11-11 23:45 | DRG 871 ==
LOC: SED 07:35 → STU 12:31
PROVIDERS: ADMIT Specialist; ATTEND Specialist
PROC: 5A1D70Z Performance of Urinary Filtration, Intermittent, Less than 6 Hours Per Day (ICD-10-PCS; principal; 2017-11-08)
PROC: 5A1D70Z Performance of Urinary Filtration, Intermittent, Less than 6 Hours Per Day (ICD-10-PCS; 2017-11-09)
PROC: 5A1D70Z Performance of Urinary Filtration, Intermittent, Less than 6 Hours Per Day (ICD-10-PCS; 2017-11-10)
DX: A41.9 Sepsis, unspecified organism (principal); N18.6 End stage renal disease; I16.9 Hypertensive crisis, unspecified; R18.8 Other ascites; I13.2 Hypertensive heart and chronic kidney disease with heart failure and with stage 5 chronic kidney disease, or end stage renal disease; K74.60 Unspecified cirrhosis of liver; E10.43 Type 1 diabetes mellitus with diabetic autonomic (poly)neuropathy; E10.22 Type 1 diabetes mellitus with diabetic chronic kidney disease; K31.84 Gastroparesis; I50.9 Heart failure, unspecified; D63.8 Anemia in other chronic diseases classified elsewhere; Z53.29 Procedure and treatment not carried out because of patient's decision for other reasons; D50.9 Iron deficiency anemia, unspecified; K76.89 Other specified diseases of liver; E10.319 Type 1 diabetes mellitus with unspecified diabetic retinopathy without macular edema; E10.69 Type 1 diabetes mellitus with other specified complication; G89.29 Other chronic pain; E87.5 Hyperkalemia; M54.9 Dorsalgia, unspecified; K75.9 Inflammatory liver disease, unspecified; Z99.2 Dependence on renal dialysis; Z88.8 Allergy status to other drugs, medicaments and biological substances; Z91.040 Latex allergy status; Z91.19 Patient's noncompliance with other medical treatment and regimen
CPT/HCPCS: 36415; 71045; 76700-TC; 80048; 80053; 80074; 82105; 82140-TC; 82550-TC; 82962; 83880; 84484; 85025; 85610-TC; 85730-TC; 87081; 90935; 90937; 93005; 96374; 96375; 96376; 99285; J0610; J0780; J1170; J1815; J2060; J3010; J7030; Q9964; Q9967

== ENCOUNTER 2017-12-07 01:29 | Inpatient (IN) | payer OTHER ==
[~2017-12-07] VITALS: Ht 170.2 cm; Wt 66.4 kg
[~2017-12-07 01:29] MED LIST changes: -HYDR-1189 PO; -METO-290 PO; -NIFE10CA PO; -VIS25 PO
[2017-12-07 01:44] VITALS: BP_SYST 170
[2017-12-07] MEDS ORDERED: ONDANSETRON HCL 4 MG/2 ML VIAL IVP ONE (03:30)
[2017-12-07] MEDS ORDERED: ASPIRIN 81 MG TAB.CHEW PO ONE (03:30)
[2017-12-07 04:04] LABS: BASOPHILS % (AUTO) 0.4 % (0.0-2.0); EOSINOPHILS # (AUTO) 0.1 K/uL (0.0-0.4); EOSINOPHILS % (AUTO) 1.3 % (0.0-4.0); HEMATOCRIT 30.4 % (36-48); HEMOGLOBIN 9.8 g/dL (12.0-16.0); LYMPHOCYTES # (AUTO) 1.2 K/uL (1.0-5.5); LYMPHOCYTES % (AUTO) 11.8 % (20.5-51.5); MEAN CORPUSCULAR HEMOGLOBIN 30 pg (27-31); MEAN CORPUSCULAR HGB CONC 32 % (32-36); MEAN CORPUSCULAR VOLUME 91 fL (79.0-98.0); MONOCYTES # (AUTO) 0.9 K/uL (0.0-1.0); NEUTROPHILS # (AUTO) 8.3 K/uL (1.8-7.7); NEUTROPHILS % (AUTO) 77.5 % (40.0-70.0); PLATELET COUNT (AUTO) 233 K/uL (130-430); RED BLOOD CELL COUNT(AUTO) 3.32 MIL/uL (4.2-6.2); WHITE BLOOD COUNT (AUTO) 10.5 K/uL (4.8-10.8)
[2017-12-07] MEDS ORDERED: HYDROmorphone 1 MG INJ. 1 MG/ML AMPUL IVP ONE (04:15)
[2017-12-07 04:26] LABS: ALBUMIN 3.2 g/dL (3.4-4.8); CALCIUM 8.9 mg/dL (8.4-11.0); POTASSIUM 5.5 mmol/L (3.5-5.1); TOTAL BILIRUBIN 0.9 mg/dL (0.0-1.0)
[2017-12-07 04:27] LABS: INR 1.2 (0.8-1.2); PROTHROMBIN TIME 12.2 SECS (9.5-12.5)
[2017-12-07] MEDS ORDERED: INSULIN REGULAR, HUMAN 10 UNITS/0.1 ML INJ IVP ONE (04:45)
[2017-12-07 04:47] LABS: CREATININE 4.42 mg/dL (0.55-1.30)
[2017-12-07] MEDS ORDERED: ONDANSETRON 4 MG ODT TAB PO PRN (06:00)
[2017-12-07] MEDS: hydrALAZINE HCL 25 MG TABLET PO SCH ×4 (06:00→21:17)
[2017-12-07] MEDS ORDERED: INSULIN ASPART 100 UNITS/ML, 10 ML VIAL (NovoLOG) SUBCUT PRN (06:00)
[2017-12-07 06:35] VITALS: BP_SYST 147
[2017-12-07] MEDS ORDERED: cloNIDine HCL 0.2 MG TABLET ONE (06:54)
[2017-12-07] MEDS ORDERED: hydrALAZINE HCL 25 MG TABLET ONE (06:54)
[2017-12-07 07:51] LABS: CALCIUM 8.7 mg/dL (8.4-11.0); CREATININE 4.48 mg/dL (0.55-1.30); POTASSIUM 5.7 mmol/L (3.5-5.1)
[2017-12-07 07:54] LABS: BASOPHILS % (AUTO) 0.4 % (0.0-2.0); EOSINOPHILS # (AUTO) 0.2 K/uL (0.0-0.4); EOSINOPHILS % (AUTO) 1.9 % (0.0-4.0); HEMATOCRIT 27.2 % (36-48); HEMOGLOBIN 8.4 g/dL (12.0-16.0); LYMPHOCYTES # (AUTO) 1.5 K/uL (1.0-5.5); MEAN CORPUSCULAR HEMOGLOBIN 28 pg (27-31); MEAN CORPUSCULAR HGB CONC 31 % (32-36); MEAN CORPUSCULAR VOLUME 91 fL (79.0-98.0); MONOCYTES # (AUTO) 1.1 K/uL (0.0-1.0); MONOCYTES % (AUTO) 10.9 % (1.7-9.3); NEUTROPHILS # (AUTO) 7.1 K/uL (1.8-7.7); NEUTROPHILS % (AUTO) 71.8 % (40.0-70.0); PLATELET COUNT (AUTO) 192 K/uL (130-430); RED BLOOD CELL COUNT(AUTO) 2.98 MIL/uL (4.2-6.2); RED CELL DISTRIBUTION WIDTH 17.3 % (9.0-15.0); WHITE BLOOD COUNT (AUTO) 9.9 K/uL (4.8-10.8)
[2017-12-07 07:57] LABS: ALBUMIN 2.8 g/dL (3.4-4.8); TOTAL BILIRUBIN 0.8 mg/dL (0.0-1.0)
[2017-12-07 08:21] VITALS: BP_SYST 148
[2017-12-07] MEDS: HYDROmorphone 2 MG/ML VIAL IVP PRN ×4 (08:25→20:17)
[2017-12-07] MEDS: CARVEDILOL 25 MG TABLET (COREG) PO SCH ×2 (08:27→20:23)
[2017-12-07] MEDS: INSULIN ASPART 100 UNITS/ML, 10 ML VIAL (NovoLOG) SUBCUT PRN (11:31)
[2017-12-07 12:30] VITALS: BP_SYST 144
[2017-12-07 16:42] VITALS: BP_SYST 143
[2017-12-07] MEDS ORDERED: DIPHENHYDRAMINE INJ 50 MG/ML VIAL IVP PRN (16:45)
[2017-12-07 18:56] LABS: BASOPHILS # (AUTO) 0.1 K/uL (0.0-0.2); BASOPHILS % (AUTO) 0.9 % (0.0-2.0); EOSINOPHILS # (AUTO) 0.2 K/uL (0.0-0.4); EOSINOPHILS % (AUTO) 3.2 % (0.0-4.0); LYMPHOCYTES # (AUTO) 1.3 K/uL (1.0-5.5); LYMPHOCYTES % (AUTO) 21.6 % (20.5-51.5); MEAN CORPUSCULAR HEMOGLOBIN 28 pg (27-31); MEAN CORPUSCULAR HGB CONC 31 % (32-36); MEAN CORPUSCULAR VOLUME 90 fL (79.0-98.0); MONOCYTES # (AUTO) 0.5 K/uL (0.0-1.0); MONOCYTES % (AUTO) 9.1 % (1.7-9.3); NEUTROPHILS # (AUTO) 3.7 K/uL (1.8-7.7); NEUTROPHILS % (AUTO) 65.2 % (40.0-70.0); PLATELET COUNT (AUTO) 195 K/uL (130-430); RED BLOOD CELL COUNT(AUTO) 3.56 MIL/uL (4.2-6.2); RED CELL DISTRIBUTION WIDTH 16.8 % (9.0-15.0); WHITE BLOOD COUNT (AUTO) 5.8 K/uL (4.8-10.8)
[2017-12-07 19:14] LABS: CALCIUM 8.9 mg/dL (8.4-11.0); CREATININE 2.86 mg/dL (0.55-1.30); POTASSIUM 4.1 mmol/L (3.5-5.1)
[2017-12-07 20:00] VITALS: BP_SYST 165
[2017-12-07] MEDS: cloNIDine HCL 0.2 MG TABLET PO PRN (20:22)
[2017-12-07] MEDS: LORazepam 2 MG/ML VIAL IVP PRN (21:23)
[2017-12-08 00:10] VITALS: BP_SYST 129
[2017-12-08] MEDS: HYDROmorphone 2 MG/ML VIAL IVP PRN ×7 (02:21→20:52)
[2017-12-08] MEDS: hydrALAZINE HCL 25 MG TABLET PO SCH ×3 (06:20→20:59)
[2017-12-08] MEDS: INSULIN ASPART 100 UNITS/ML, 10 ML VIAL (NovoLOG) SUBCUT PRN ×3 (06:23→20:55)
[2017-12-08] MEDS: LORazepam 2 MG/ML VIAL IVP PRN ×2 (06:43→22:40)
[2017-12-08 08:14] VITALS: BP_SYST 150
[2017-12-08] MEDS: CARVEDILOL 25 MG TABLET (COREG) PO SCH ×2 (08:43→20:53)
[2017-12-08] MEDS ORDERED: EPOETIN ALFA 3,000 UNITS/ML VIAL SUBCUT SCH (09:00)
[2017-12-08 12:23] VITALS: BP_SYST 144
[2017-12-08 16:34] VITALS: BP_SYST 140
[2017-12-08] MEDS: EPOETIN ALFA 3,000 UNITS/ML VIAL SUBCUT SCH (17:48)
[2017-12-08 20:00] VITALS: BP_SYST 149
[2017-12-09 00:21] VITALS: BP_SYST 146
[2017-12-09] MEDS: HYDROmorphone 2 MG/ML VIAL IVP PRN ×6 (01:54→19:45)
[2017-12-09] MEDS: LORazepam 2 MG/ML VIAL IVP PRN ×3 (03:13→21:26)
[2017-12-09] MEDS: hydrALAZINE HCL 25 MG TABLET PO SCH ×3 (06:15→21:24)
[2017-12-09] MEDS: INSULIN ASPART 100 UNITS/ML, 10 ML VIAL (NovoLOG) SUBCUT PRN ×3 (06:18→21:31)
[2017-12-09 08:00] VITALS: BP_SYST 140
[2017-12-09] MEDS: CARVEDILOL 25 MG TABLET (COREG) PO SCH ×2 (09:57→21:24)
[2017-12-09 12:09] VITALS: BP_SYST 130
[2017-12-09] MEDS: cloNIDine HCL 0.2 MG TABLET PO PRN (16:05)
[2017-12-09 16:30] VITALS: BP_SYST 168
[2017-12-09 20:52] VITALS: BP_SYST 153
[2017-12-10 00:09] VITALS: BP_SYST 155
[2017-12-10] MEDS: HYDROmorphone 2 MG/ML VIAL IVP PRN ×7 (00:45→19:56)
[2017-12-10] MEDS: LORazepam 2 MG/ML VIAL IVP PRN ×4 (01:31→21:03)
[2017-12-10] MEDS: hydrALAZINE HCL 25 MG TABLET PO SCH ×3 (06:14→21:07)
[2017-12-10] MEDS: INSULIN ASPART 100 UNITS/ML, 10 ML VIAL (NovoLOG) SUBCUT PRN ×2 (06:17→17:01)
[2017-12-10] MEDS: cloNIDine HCL 0.2 MG TABLET PO PRN (06:27)
[2017-12-10 06:56] LABS: BASOPHILS % (AUTO) 0.4 % (0.0-2.0); EOSINOPHILS # (AUTO) 0.2 K/uL (0.0-0.4); EOSINOPHILS % (AUTO) 3.7 % (0.0-4.0); HEMOGLOBIN 9.9 g/dL (12.0-16.0); LYMPHOCYTES # (AUTO) 1.6 K/uL (1.0-5.5); LYMPHOCYTES % (AUTO) 23.3 % (20.5-51.5); MEAN CORPUSCULAR HEMOGLOBIN 30 pg (27-31); MEAN CORPUSCULAR HGB CONC 32 % (32-36); MEAN CORPUSCULAR VOLUME 92 fL (79.0-98.0); MONOCYTES # (AUTO) 0.5 K/uL (0.0-1.0); MONOCYTES % (AUTO) 8.1 % (1.7-9.3); NEUTROPHILS # (AUTO) 4.4 K/uL (1.8-7.7); NEUTROPHILS % (AUTO) 64.5 % (40.0-70.0); PLATELET COUNT (AUTO) 212 K/uL (130-430); RED BLOOD CELL COUNT(AUTO) 3.35 MIL/uL (4.2-6.2); RED CELL DISTRIBUTION WIDTH 17.3 % (9.0-15.0); WHITE BLOOD COUNT (AUTO) 6.7 K/uL (4.8-10.8)
[2017-12-10 07:11] VITALS: BP_SYST 155
[2017-12-10 07:33] LABS: CALCIUM 8.7 mg/dL (8.4-11.0); CREATININE 3.99 mg/dL (0.55-1.30); POTASSIUM 5.6 mmol/L (3.5-5.1)
[2017-12-10] MEDS: CARVEDILOL 25 MG TABLET (COREG) PO SCH ×2 (09:57→21:02)
[2017-12-10 10:05] VITALS: BP_SYST 157
[2017-12-10 12:43] VITALS: BP_SYST 144
[2017-12-10] MEDS: EPOETIN ALFA 3,000 UNITS/ML VIAL SUBCUT SCH (16:52)
[2017-12-11] VITALS: BP_SYST 128
[2017-12-11] MEDS: HYDROmorphone 2 MG/ML VIAL IVP PRN ×7 (01:06→21:00)
[2017-12-11] MEDS: LORazepam 2 MG/ML VIAL IVP PRN ×3 (02:52→16:35)
[2017-12-11] MEDS: hydrALAZINE HCL 25 MG TABLET PO SCH ×3 (05:18→21:02)
[2017-12-11] MEDS: INSULIN ASPART 100 UNITS/ML, 10 ML VIAL (NovoLOG) SUBCUT PRN ×3 (06:05→18:00)
[2017-12-11 08:33] VITALS: BP_SYST 147
[2017-12-11] MEDS: CARVEDILOL 25 MG TABLET (COREG) PO SCH ×2 (11:28→21:01)
[2017-12-11] MEDS: cloNIDine HCL 0.2 MG TABLET PO PRN (12:29)
[2017-12-11 12:40] VITALS: BP_SYST 175
[2017-12-11 16:25] VITALS: BP_SYST 154
[2017-12-11] MEDS: DOCUSATE SODIUM 100 MG CAPSULE PO SCH (21:01)
[2017-12-12] MEDS: HYDROmorphone 2 MG/ML VIAL IVP PRN ×8 (00:20→21:22)
[2017-12-12] MEDS: LORazepam 2 MG/ML VIAL IVP PRN (01:20)
[2017-12-12 02:56] VITALS: BP_SYST 122
[2017-12-12] MEDS: hydrALAZINE HCL 25 MG TABLET PO SCH ×3 (06:19→21:21)
[2017-12-12] MEDS: INSULIN ASPART 100 UNITS/ML, 10 ML VIAL (NovoLOG) SUBCUT PRN ×3 (06:22→17:30)
[2017-12-12 08:50] VITALS: BP_SYST 133
[2017-12-12] MEDS ORDERED: EPOETIN ALFA 4,000 UNITS/ML VIAL SUBCUT SCH (09:00)
[2017-12-12] MEDS: DOCUSATE SODIUM 100 MG CAPSULE PO SCH ×2 (09:16→20:12)
[2017-12-12] MEDS: CARVEDILOL 25 MG TABLET (COREG) PO SCH ×2 (09:16→20:12)
[2017-12-12 12:02] VITALS: BP_SYST 152
[2017-12-12] MEDS: cloNIDine HCL 0.2 MG TABLET PO PRN (15:52)
[2017-12-12 16:14] VITALS: BP_SYST 172
[2017-12-12] MEDS ORDERED: METOCLOPRAMIDE HCL 10 MG/2 ML VIAL IVP PRN (17:45)
[2017-12-12 20:00] VITALS: BP_SYST 154
[2017-12-13] MEDS: HYDROmorphone 2 MG/ML VIAL IVP PRN ×7 (00:23→22:16)
[2017-12-13 00:48] VITALS: BP_SYST 149
[2017-12-13] MEDS: hydrALAZINE HCL 25 MG TABLET PO SCH ×3 (05:06→22:15)
[2017-12-13] MEDS: LORazepam 2 MG/ML VIAL IVP PRN ×3 (05:07→17:35)
[2017-12-13 07:19] LABS: CALCIUM 9.1 mg/dL (8.4-11.0); CREATININE 5.98 mg/dL (0.55-1.30)
[2017-12-13 07:29] LABS: POTASSIUM 7.2 mmol/L (3.5-5.1)
[2017-12-13 08:00] VITALS: BP_SYST 117
[2017-12-13] MEDS: DOCUSATE SODIUM 100 MG CAPSULE PO SCH ×2 (08:49→22:16)
[2017-12-13] MEDS: CARVEDILOL 25 MG TABLET (COREG) PO SCH ×2 (08:50→22:15)
[2017-12-13 13:00] VITALS: BP_SYST 190
[2017-12-13] MEDS: cloNIDine HCL 0.2 MG TABLET PO PRN (15:28)
[2017-12-13 17:03] VITALS: BP_SYST 172
[2017-12-13] MEDS: EPOETIN ALFA 3,000 UNITS/ML VIAL SUBCUT SCH (17:24)
[2017-12-13] MEDS: INSULIN ASPART 100 UNITS/ML, 10 ML VIAL (NovoLOG) SUBCUT PRN ×2 (17:38→22:21)
[2017-12-13 20:30] VITALS: BP_SYST 137
[2017-12-14 00:47] VITALS: BP_SYST 135
[2017-12-14] MEDS: HYDROmorphone 2 MG/ML VIAL IVP PRN ×5 (01:36→16:55)
[2017-12-14] MEDS: LORazepam 2 MG/ML VIAL IVP PRN ×2 (02:31→14:42)
[2017-12-14] MEDS: hydrALAZINE HCL 25 MG TABLET PO SCH ×2 (05:45→14:09)
[2017-12-14] MEDS: INSULIN ASPART 100 UNITS/ML, 10 ML VIAL (NovoLOG) SUBCUT PRN ×2 (06:15→17:02)
[2017-12-14 06:57] LABS: CALCIUM 9.3 mg/dL (8.4-11.0); CREATININE 5.07 mg/dL (0.55-1.30); POTASSIUM 5.1 mmol/L (3.5-5.1)
[2017-12-14 07:19] LABS: BASOPHILS % (AUTO) 0.5 % (0.0-2.0); EOSINOPHILS # (AUTO) 0.3 K/uL (0.0-0.4); EOSINOPHILS % (AUTO) 3.8 % (0.0-4.0); LYMPHOCYTES # (AUTO) 1.3 K/uL (1.0-5.5); LYMPHOCYTES % (AUTO) 20.1 % (20.5-51.5); MEAN CORPUSCULAR HEMOGLOBIN 30 pg (27-31); MEAN CORPUSCULAR HGB CONC 32 % (32-36); MEAN CORPUSCULAR VOLUME 92 fL (79.0-98.0); MONOCYTES # (AUTO) 0.5 K/uL (0.0-1.0); MONOCYTES % (AUTO) 6.9 % (1.7-9.3); NEUTROPHILS # (AUTO) 4.5 K/uL (1.8-7.7); NEUTROPHILS % (AUTO) 68.7 % (40.0-70.0); PLATELET COUNT (AUTO) 186 K/uL (130-430); RED BLOOD CELL COUNT(AUTO) 3.38 MIL/uL (4.2-6.2); RED CELL DISTRIBUTION WIDTH 18.2 % (9.0-15.0); WHITE BLOOD COUNT (AUTO) 6.6 K/uL (4.8-10.8)
[2017-12-14 07:48] VITALS: BP_SYST 114
[2017-12-14 08:00] VITALS: BP_SYST 140
[2017-12-14] MEDS: DOCUSATE SODIUM 100 MG CAPSULE PO SCH (09:14)
[2017-12-14] MEDS: CARVEDILOL 25 MG TABLET (COREG) PO SCH (09:15)
[2017-12-14 12:00] VITALS: BP_SYST 144
[2017-12-14 16:56] VITALS: BP_SYST 163
[2017-12-14 17:53] VITALS: BP_SYST 120
== END 2017-12-14 18:15 | disposition home or self-care (01) | DRG 291 ==
LOC: SED 01:29 → STU 05:55
PROVIDERS: ADMIT Internal Medicine; ATTEND Internal Medicine
PROC: 5A1D70Z Performance of Urinary Filtration, Intermittent, Less than 6 Hours Per Day (ICD-10-PCS; principal; 2017-12-07)
PROC: 5A1D70Z Performance of Urinary Filtration, Intermittent, Less than 6 Hours Per Day (ICD-10-PCS; 2017-12-09)
PROC: 5A1D70Z Performance of Urinary Filtration, Intermittent, Less than 6 Hours Per Day (ICD-10-PCS; 2017-12-11)
PROC: 5A1D70Z Performance of Urinary Filtration, Intermittent, Less than 6 Hours Per Day (ICD-10-PCS; 2017-12-13)
DX: I13.2 Hypertensive heart and chronic kidney disease with heart failure and with stage 5 chronic kidney disease, or end stage renal disease (principal); N18.6 End stage renal disease; I50.43 Acute on chronic combined systolic (congestive) and diastolic (congestive) heart failure; R18.8 Other ascites; F11.20 Opioid dependence, uncomplicated; I50.82 Biventricular heart failure; E87.5 Hyperkalemia; L29.9 Pruritus, unspecified; R10.9 Unspecified abdominal pain; F41.9 Anxiety disorder, unspecified; M25.551 Pain in right hip; M54.9 Dorsalgia, unspecified; G89.29 Other chronic pain; E10.22 Type 1 diabetes mellitus with diabetic chronic kidney disease; E10.21 Type 1 diabetes mellitus with diabetic nephropathy; R16.2 Hepatomegaly with splenomegaly, not elsewhere classified; D63.1 Anemia in chronic kidney disease; E10.42 Type 1 diabetes mellitus with diabetic polyneuropathy; S89.91XA Unspecified injury of right lower leg, initial encounter; W18.39XA Other fall on same level, initial encounter; Y93.89 Activity, other specified; Y92.89 Other specified places as the place of occurrence of the external cause; Y99.8 Other external cause status; Z83.3 Family history of diabetes mellitus; Z99.2 Dependence on renal dialysis; Z88.5 Allergy status to narcotic agent; Z88.8 Allergy status to other drugs, medicaments and biological substances; Z91.040 Latex allergy status; Z82.49 Family history of ischemic heart disease and other diseases of the circulatory system; Z84.1 Family history of disorders of kidney and ureter; Z90.49 Acquired absence of other specified parts of digestive tract; Z91.15 Patient's noncompliance with renal dialysis
CPT/HCPCS: 36415; 71045; 73502; 73560-TC; 80048; 80053; 82150-TC; 82550-TC; 82962; 83690-TC; 83880; 84100-TC; 84484; 85025; 85610-TC; 85730-TC; 87081; 90935; 90937; 93005; 93306; 96361; 96365; 96375; 96376; 97110-GP; 97116-GP; 97530-GP; 99285; J0885; J1170; J1200; J1815; J2060; J2405; J7030

== ENCOUNTER 2017-12-25 13:06 | Inpatient (IN) | payer OTHER ==
[~2017-12-25] VITALS: Ht 170.2 cm; Wt 65.3 kg
[2017-12-25] VITALS (9 sets, daily range): BP systolic 151–208
[2017-12-25] MEDS ORDERED: ONDANSETRON HCL 4 MG/2 ML VIAL IVP ONE (14:30)
[2017-12-25] MEDS ORDERED: fentaNYL CITRATE/PF 100 MCG/2 ML AMP IVP ONE ×2 (14:30→15:45)
[2017-12-25 14:43] LABS: BASOPHILS # (AUTO) 0.1 K/uL (0.0-0.2); BASOPHILS % (AUTO) 0.7 % (0.0-2.0); EOSINOPHILS # (AUTO) 0.2 K/uL (0.0-0.4); EOSINOPHILS % (AUTO) 2.5 % (0.0-4.0); HEMATOCRIT 36.4 % (36-48); HEMOGLOBIN 11.3 g/dL (12.0-16.0); LYMPHOCYTES # (AUTO) 1.4 K/uL (1.0-5.5); LYMPHOCYTES % (AUTO) 18.2 % (20.5-51.5); MEAN CORPUSCULAR HEMOGLOBIN 29 pg (27-31); MEAN CORPUSCULAR HGB CONC 31 % (32-36); MEAN CORPUSCULAR VOLUME 95 fL (79.0-98.0); MONOCYTES # (AUTO) 0.5 K/uL (0.0-1.0); MONOCYTES % (AUTO) 6.5 % (1.7-9.3); NEUTROPHILS # (AUTO) 5.7 K/uL (1.8-7.7); NEUTROPHILS % (AUTO) 72.1 % (40.0-70.0); PLATELET COUNT (AUTO) 186 K/uL (130-430); RED BLOOD CELL COUNT(AUTO) 3.84 MIL/uL (4.2-6.2); RED CELL DISTRIBUTION WIDTH 18.8 % (9.0-15.0); WHITE BLOOD COUNT (AUTO) 7.9 K/uL (4.8-10.8)
[2017-12-25 14:50] LABS: INR 1.3 (0.8-1.2); PROTHROMBIN TIME 12.7 SECS (9.5-12.5)
[2017-12-25 14:57] LABS: CALCIUM 9.5 mg/dL (8.4-11.0); CREATININE 7.44 mg/dL (0.55-1.30)
[2017-12-25 15:02] LABS: ALBUMIN 3.4 g/dL (3.4-4.8); TOTAL BILIRUBIN 0.8 mg/dL (0.0-1.0)
[2017-12-25 15:08] LABS: POTASSIUM 7.1 mmol/L (3.5-5.1)
[2017-12-25] MEDS ORDERED: INSULIN REGULAR, HUMAN 10 UNITS/0.1 ML INJ IVP ONE (15:15)
[2017-12-25] MEDS ORDERED: SODIUM BICARBONATE 8.4% JECT 50 MEQ/50 ML SYRINGE IVP ONE (15:15)
[2017-12-25] MEDS ORDERED: DEXTROSE 50% JECT 50 ML DISP.SYRIN IVP ONE (15:15)
[2017-12-25] MEDS ORDERED: CLINDAMYCIN 900 mg/50mL D5W 50 ML IV ONE (15:30)
[2017-12-25] MEDS ORDERED: PROCHLORPERAZINE EDISYLATE 10 MG/2 ML VIAL IVP PRN (15:45)
[2017-12-25] MEDS ORDERED: METOCLOPRAMIDE HCL 10 MG/2 ML VIAL IVP ONE (15:45)
[2017-12-25] MEDS ORDERED: HEPARIN SODIUM,PORCINE 5000 UNITS/ML VIAL ONE (17:27)
[2017-12-25] MEDS: HYDROmorphone 1 MG INJ. 1 MG/ML AMPUL IVP PRN ×2 (18:25→22:38)
[2017-12-25] MEDS: NORMAL SALINE 5 ML DISP.SYRIN IVF SCH (22:39)
[2017-12-25] MEDS ORDERED: LABETALOL 100 MG/ 20ML VIAL ONE (22:40)
[2017-12-25] MEDS ORDERED: cloNIDine HCL 0.2 MG TABLET PO SCH (22:45)
[2017-12-25] MEDS ORDERED: hydrALAZINE HCL 25 MG TABLET ONE (23:19)
[2017-12-25] MEDS ORDERED: CARVEDILOL 3.125 MG TABLET (COREG) ONE (23:19)
[2017-12-25] MEDS: CARVEDILOL 3.125 MG TABLET (COREG) PO SCH (23:21)
[2017-12-25] MEDS: hydrALAZINE HCL 25 MG TABLET PO SCH (23:22)
[2017-12-25] MEDS ORDERED: LABETALOL 100 MG/ 20ML VIAL IVP PRN (23:45)
[2017-12-26] VITALS (21 sets, daily range): BP systolic 124–208
[2017-12-26] MEDS: HYDROmorphone 1 MG INJ. 1 MG/ML AMPUL IVP PRN ×5 (02:37→19:51)
[2017-12-26] MEDS: NORMAL SALINE 5 ML DISP.SYRIN IVF SCH ×3 (05:07→22:30)
[2017-12-26] MEDS: HYDROcodone/ACETAMIN 5-325 MG TAB (NORCO/ VICODIN) PO PRN ×3 (05:24→14:11)
[2017-12-26] MEDS: hydrALAZINE HCL 25 MG TABLET PO SCH ×3 (06:46→22:29)
[2017-12-26 06:47] LABS: ALBUMIN 2.9 g/dL (3.4-4.8); CALCIUM 9.1 mg/dL (8.4-11.0); CREATININE 5.28 mg/dL (0.55-1.30); POTASSIUM 4.4 mmol/L (3.5-5.1); TOTAL BILIRUBIN 0.8 mg/dL (0.0-1.0)
[2017-12-26] MEDS: INSULIN ASPART 100 UNITS/ML, 10 ML VIAL (NovoLOG) SUBCUT PRN ×3 (06:48→22:34)
[2017-12-26 06:57] LABS: BASOPHILS % (AUTO) 0.7 % (0.0-2.0); EOSINOPHILS # (AUTO) 0.2 K/uL (0.0-0.4); HEMATOCRIT 34.5 % (36-48); HEMOGLOBIN 10.9 g/dL (12.0-16.0); LYMPHOCYTES # (AUTO) 1.4 K/uL (1.0-5.5); LYMPHOCYTES % (AUTO) 22.7 % (20.5-51.5); MEAN CORPUSCULAR HEMOGLOBIN 30 pg (27-31); MEAN CORPUSCULAR HGB CONC 32 % (32-36); MEAN CORPUSCULAR VOLUME 94 fL (79.0-98.0); MONOCYTES # (AUTO) 0.5 K/uL (0.0-1.0); MONOCYTES % (AUTO) 7.9 % (1.7-9.3); NEUTROPHILS # (AUTO) 3.9 K/uL (1.8-7.7); NEUTROPHILS % (AUTO) 65.7 % (40.0-70.0); PLATELET COUNT (AUTO) 169 K/uL (130-430); RED BLOOD CELL COUNT(AUTO) 3.66 MIL/uL (4.2-6.2); RED CELL DISTRIBUTION WIDTH 17.8 % (9.0-15.0)
[2017-12-26] MEDS: CARVEDILOL 3.125 MG TABLET (COREG) PO SCH ×2 (08:14→21:19)
[2017-12-26] MEDS: LABETALOL 100 MG/ 20ML VIAL IVP PRN ×2 (10:50→14:59)
[2017-12-26] MEDS: ceFAZolin SODIUM 1 GM in D5W 50 ML IV SCH ×2 (12:00→21:20)
[2017-12-26] MEDS: cloNIDine HCL 0.2 MG TABLET PO PRN (16:31)
[2017-12-26] MEDS: HYDROmorphone 2 MG/ML VIAL IVP PRN ×2 (17:21→21:19)
[2017-12-27] MEDS: HYDROmorphone 1 MG INJ. 1 MG/ML AMPUL IVP PRN ×3 (00:14→08:47)
[2017-12-27] MEDS: HYDROmorphone 2 MG/ML VIAL IVP PRN ×5 (01:36→20:52)
[2017-12-27] MEDS: NORMAL SALINE 5 ML DISP.SYRIN IVF SCH ×2 (05:36→22:02)
[2017-12-27] MEDS: cloNIDine HCL 0.2 MG TABLET PO PRN ×2 (05:37→20:58)
[2017-12-27] MEDS: hydrALAZINE HCL 25 MG TABLET PO SCH ×3 (05:37→22:00)
[2017-12-27 06:43] LABS: CALCIUM 9.1 mg/dL (8.4-11.0); CREATININE 6.24 mg/dL (0.55-1.30)
[2017-12-27 06:46] LABS: BASOPHILS % (AUTO) 0.3 % (0.0-2.0); EOSINOPHILS # (AUTO) 0.2 K/uL (0.0-0.4); EOSINOPHILS % (AUTO) 2.9 % (0.0-4.0); HEMATOCRIT 35.2 % (36-48); HEMOGLOBIN 10.8 g/dL (12.0-16.0); LYMPHOCYTES # (AUTO) 1.2 K/uL (1.0-5.5); MEAN CORPUSCULAR HEMOGLOBIN 29 pg (27-31); MEAN CORPUSCULAR HGB CONC 31 % (32-36); MEAN CORPUSCULAR VOLUME 96 fL (79.0-98.0); MONOCYTES # (AUTO) 0.5 K/uL (0.0-1.0); MONOCYTES % (AUTO) 7.6 % (1.7-9.3); NEUTROPHILS # (AUTO) 4.6 K/uL (1.8-7.7); NEUTROPHILS % (AUTO) 70.2 % (40.0-70.0); PLATELET COUNT (AUTO) 180 K/uL (130-430); RED BLOOD CELL COUNT(AUTO) 3.68 MIL/uL (4.2-6.2); RED CELL DISTRIBUTION WIDTH 18.9 % (9.0-15.0); WHITE BLOOD COUNT (AUTO) 6.5 K/uL (4.8-10.8)
[2017-12-27 06:50] LABS: TOTAL BILIRUBIN 0.6 mg/dL (0.0-1.0)
[2017-12-27 06:51] LABS: ALBUMIN 3.2 g/dL (3.4-4.8)
[2017-12-27 08:00] VITALS: BP_SYST 179
[2017-12-27] MEDS: ceFAZolin SODIUM 1 GM in D5W 50 ML IV SCH ×2 (08:51→21:03)
[2017-12-27] MEDS: CARVEDILOL 3.125 MG TABLET (COREG) PO SCH ×2 (08:51→20:57)
[2017-12-27] MEDS: HYDROcodone/ACETAMIN 5-325 MG TAB (NORCO/ VICODIN) PO PRN (10:31)
[2017-12-27 12:00] VITALS: BP_SYST 189
[2017-12-27] MEDS: INSULIN ASPART 100 UNITS/ML, 10 ML VIAL (NovoLOG) SUBCUT PRN ×2 (12:10→17:45)
[2017-12-27 16:05] VITALS: BP_SYST 153
[2017-12-27 20:30] VITALS: BP_SYST 169
[2017-12-28] VITALS (7 sets, daily range): BP systolic 149–180
[2017-12-28] MEDS: HYDROmorphone 2 MG/ML VIAL IVP PRN ×7 (00:58→23:17)
[2017-12-28] MEDS: hydrALAZINE HCL 25 MG TABLET PO SCH ×3 (05:05→21:17)
[2017-12-28] MEDS: NORMAL SALINE 5 ML DISP.SYRIN IVF SCH ×3 (05:06→21:16)
[2017-12-28] MEDS: INSULIN ASPART 100 UNITS/ML, 10 ML VIAL (NovoLOG) SUBCUT PRN ×3 (06:14→20:19)
[2017-12-28] MEDS: cloNIDine HCL 0.2 MG TABLET PO PRN (09:00)
[2017-12-28] MEDS: CARVEDILOL 3.125 MG TABLET (COREG) PO SCH ×2 (09:00→20:17)
[2017-12-28] MEDS: ceFAZolin SODIUM 1 GM in D5W 50 ML IV SCH ×2 (09:09→20:13)
[2017-12-28] MEDS ORDERED: LACTULOSE 20 GM/30 ML UDC PO PRN (19:15)
[2017-12-29] MEDS: HYDROmorphone 2 MG/ML VIAL IVP PRN ×7 (02:17→21:26)
[2017-12-29] MEDS: cloNIDine HCL 0.2 MG TABLET PO PRN ×3 (04:06→22:15)
[2017-12-29 04:15] VITALS: BP_SYST 172
[2017-12-29] MEDS: hydrALAZINE HCL 25 MG TABLET PO SCH ×3 (05:21→20:56)
[2017-12-29] MEDS: NORMAL SALINE 5 ML DISP.SYRIN IVF SCH ×3 (05:22→20:58)
[2017-12-29 05:28] VITALS: BP_SYST 148
[2017-12-29] MEDS: ceFAZolin SODIUM 1 GM in D5W 50 ML IV SCH ×2 (08:42→21:00)
[2017-12-29] MEDS: CARVEDILOL 3.125 MG TABLET (COREG) PO SCH ×2 (08:56→20:55)
[2017-12-29 11:46] VITALS: BP_SYST 185
[2017-12-29 16:58] VITALS: BP_SYST 178
[2017-12-29] MEDS: INSULIN ASPART 100 UNITS/ML, 10 ML VIAL (NovoLOG) SUBCUT PRN (18:25)
[2017-12-29 19:00] VITALS: BP_SYST 188
[2017-12-29 20:00] VITALS: BP_SYST 188
[2017-12-30] VITALS (8 sets, daily range): BP systolic 132–190
[2017-12-30] MEDS: HYDROmorphone 2 MG/ML VIAL IVP PRN ×8 (00:36→21:52)
[2017-12-30] MEDS: LABETALOL 100 MG/ 20ML VIAL IVP PRN (00:44)
[2017-12-30] MEDS: cloNIDine HCL 0.2 MG TABLET PO PRN (03:43)
[2017-12-30 06:12] LABS: BASOPHILS % (AUTO) 0.4 % (0.0-2.0); EOSINOPHILS # (AUTO) 0.1 K/uL (0.0-0.4); EOSINOPHILS % (AUTO) 2.5 % (0.0-4.0); HEMATOCRIT 36.8 % (36-48); HEMOGLOBIN 11.7 g/dL (12.0-16.0); LYMPHOCYTES # (AUTO) 1.1 K/uL (1.0-5.5); LYMPHOCYTES % (AUTO) 18.5 % (20.5-51.5); MEAN CORPUSCULAR HEMOGLOBIN 30 pg (27-31); MEAN CORPUSCULAR HGB CONC 32 % (32-36); MEAN CORPUSCULAR VOLUME 95 fL (79.0-98.0); MONOCYTES # (AUTO) 0.5 K/uL (0.0-1.0); MONOCYTES % (AUTO) 7.7 % (1.7-9.3); NEUTROPHILS # (AUTO) 4.2 K/uL (1.8-7.7); NEUTROPHILS % (AUTO) 70.9 % (40.0-70.0); PLATELET COUNT (AUTO) 139 K/uL (130-430); RED BLOOD CELL COUNT(AUTO) 3.86 MIL/uL (4.2-6.2); RED CELL DISTRIBUTION WIDTH 17.8 % (9.0-15.0); WHITE BLOOD COUNT (AUTO) 5.9 K/uL (4.8-10.8)
[2017-12-30] MEDS: hydrALAZINE HCL 25 MG TABLET PO SCH ×3 (06:28→20:26)
[2017-12-30] MEDS: NORMAL SALINE 5 ML DISP.SYRIN IVF SCH ×3 (06:30→20:28)
[2017-12-30] MEDS: INSULIN ASPART 100 UNITS/ML, 10 ML VIAL (NovoLOG) SUBCUT PRN ×2 (06:35→17:00)
[2017-12-30 06:53] LABS: ALBUMIN 3.4 g/dL (3.4-4.8); CALCIUM 9.3 mg/dL (8.4-11.0); CREATININE 5.17 mg/dL (0.55-1.30); TOTAL BILIRUBIN 0.7 mg/dL (0.0-1.0)
[2017-12-30 07:12] LABS: POTASSIUM 6.2 mmol/L (3.5-5.1)
[2017-12-30] MEDS ORDERED: LIDOCAINE 1%, 20 ML MDV 0 ML ONE (08:42)
[2017-12-30] MEDS: POLYETHYLENE GLYCOL 3350, 17 GM/ POWD.PACK PO SCH ×2 (09:00→20:28)
[2017-12-30] MEDS: BISACODYL 5 MG TABLET.DR (DULCOLAX) PO SCH (09:00)
[2017-12-30] MEDS: CARVEDILOL 3.125 MG TABLET (COREG) PO SCH ×2 (09:04→20:25)
[2017-12-30] MEDS: ceFAZolin SODIUM 1 GM in D5W 50 ML IV SCH ×2 (09:05→20:25)
[2017-12-31 00:30] VITALS: BP_SYST 189
[2017-12-31] MEDS: HYDROmorphone 2 MG/ML VIAL IVP PRN ×8 (01:17→22:31)
[2017-12-31] MEDS: cloNIDine HCL 0.2 MG TABLET PO PRN (01:47)
[2017-12-31 06:00] VITALS: BP_SYST 177
[2017-12-31] MEDS: hydrALAZINE HCL 25 MG TABLET PO SCH ×3 (06:10→21:49)
[2017-12-31] MEDS: NORMAL SALINE 5 ML DISP.SYRIN IVF SCH ×3 (06:15→21:50)
[2017-12-31] MEDS: INSULIN ASPART 100 UNITS/ML, 10 ML VIAL (NovoLOG) SUBCUT PRN ×2 (06:21→16:38)
[2017-12-31 07:47] VITALS: BP_SYST 162
[2017-12-31 08:03] LABS: CALCIUM 9.5 mg/dL (8.4-11.0); CREATININE 4.95 mg/dL (0.55-1.30); PHOSPHORUS 5.9 mg/dL (2.7-4.5)
[2017-12-31 08:06] LABS: BASOPHILS % (AUTO) 0.5 % (0.0-2.0); EOSINOPHILS # (AUTO) 0.2 K/uL (0.0-0.4); EOSINOPHILS % (AUTO) 3.3 % (0.0-4.0); HEMATOCRIT 36.5 % (36-48); HEMOGLOBIN 11.6 g/dL (12.0-16.0); LYMPHOCYTES # (AUTO) 1.2 K/uL (1.0-5.5); MEAN CORPUSCULAR HEMOGLOBIN 30 pg (27-31); MEAN CORPUSCULAR HGB CONC 32 % (32-36); MEAN CORPUSCULAR VOLUME 95 fL (79.0-98.0); MONOCYTES # (AUTO) 0.5 K/uL (0.0-1.0); MONOCYTES % (AUTO) 8.2 % (1.7-9.3); PLATELET COUNT (AUTO) 122 K/uL (130-430); RED BLOOD CELL COUNT(AUTO) 3.86 MIL/uL (4.2-6.2); RED CELL DISTRIBUTION WIDTH 17.7 % (9.0-15.0); WHITE BLOOD COUNT (AUTO) 5.9 K/uL (4.8-10.8)
[2017-12-31] MEDS: CARVEDILOL 3.125 MG TABLET (COREG) PO SCH ×2 (08:10→21:49)
[2017-12-31] MEDS: BISACODYL 5 MG TABLET.DR (DULCOLAX) PO SCH (08:10)
[2017-12-31] MEDS: ceFAZolin SODIUM 1 GM in D5W 50 ML IV SCH ×2 (08:11→21:48)
[2017-12-31 08:16] LABS: POTASSIUM 6.2 mmol/L (3.5-5.1)
[2017-12-31] MEDS: POLYETHYLENE GLYCOL 3350, 17 GM/ POWD.PACK PO SCH ×2 (09:00→21:00)
[2017-12-31 12:00] VITALS: BP_SYST 152
[2017-12-31 16:00] VITALS: BP_SYST 147; BP_SYST 174
[2017-12-31 20:00] VITALS: BP_SYST 142
[2018-01-01] MEDS: HYDROmorphone 2 MG/ML VIAL IVP PRN ×8 (01:31→23:33)
[2018-01-01] MEDS: NORMAL SALINE 5 ML DISP.SYRIN IVF SCH ×3 (06:31→21:09)
[2018-01-01] MEDS: INSULIN ASPART 100 UNITS/ML, 10 ML VIAL (NovoLOG) SUBCUT PRN ×3 (06:33→21:15)
[2018-01-01] MEDS: hydrALAZINE HCL 25 MG TABLET PO SCH ×3 (06:38→21:09)
[2018-01-01 08:01] VITALS: BP_SYST 169
[2018-01-01] MEDS: ceFAZolin SODIUM 1 GM in D5W 50 ML IV SCH ×2 (08:06→21:08)
[2018-01-01] MEDS: BISACODYL 5 MG TABLET.DR (DULCOLAX) PO SCH (08:06)
[2018-01-01] MEDS: CARVEDILOL 3.125 MG TABLET (COREG) PO SCH ×2 (08:07→21:08)
[2018-01-01] MEDS: POLYETHYLENE GLYCOL 3350, 17 GM/ POWD.PACK PO SCH ×2 (08:07→21:00)
[2018-01-01 09:43] LABS: CALCIUM 9.7 mg/dL (8.4-11.0); CREATININE 4.52 mg/dL (0.55-1.30)
[2018-01-01 13:11] VITALS: BP_SYST 179
[2018-01-01 17:13] VITALS: BP_SYST 174
[2018-01-01] MEDS: LABETALOL 100 MG/ 20ML VIAL IVP PRN (17:19)
[2018-01-01 20:00] VITALS: BP_SYST 166
[2018-01-02 00:10] VITALS: BP_SYST 161
[2018-01-02] MEDS: HYDROmorphone 2 MG/ML VIAL IVP PRN ×6 (02:31→18:30)
[2018-01-02] MEDS: hydrALAZINE HCL 25 MG TABLET PO SCH ×2 (06:17→14:22)
[2018-01-02] MEDS: NORMAL SALINE 5 ML DISP.SYRIN IVF SCH ×2 (06:18→13:14)
[2018-01-02 08:30] VITALS: BP_SYST 166
[2018-01-02] MEDS: INSULIN ASPART 100 UNITS/ML, 10 ML VIAL (NovoLOG) SUBCUT PRN ×2 (11:20→16:37)
[2018-01-02] MEDS: BISACODYL 5 MG TABLET.DR (DULCOLAX) PO SCH (11:23)
[2018-01-02] MEDS: CARVEDILOL 3.125 MG TABLET (COREG) PO SCH (11:23)
[2018-01-02] MEDS: POLYETHYLENE GLYCOL 3350, 17 GM/ POWD.PACK PO SCH (11:30)
[2018-01-02 11:37] VITALS: BP_SYST 162
[2018-01-02] MEDS: cloNIDine HCL 0.2 MG TABLET PO PRN (13:12)
[2018-01-02 15:04] VITALS: BP_SYST 151
[2018-01-02 18:51] VITALS: BP_SYST 170
[2018-01-02 19:43] VITALS: BP_SYST 158
== END 2018-01-02 20:40 | disposition home or self-care (01) | DRG 314 ==
LOC: SED 13:06 → SMU 15:30 → SIC 17:04 → STU 12-26 18:14
PROVIDERS: ADMIT Internal Medicine Nephrology; ATTEND Internal Medicine Nephrology
PROC: 5A1D70Z Performance of Urinary Filtration, Intermittent, Less than 6 Hours Per Day (ICD-10-PCS; principal; 2017-12-25)
PROC: 5A1D70Z Performance of Urinary Filtration, Intermittent, Less than 6 Hours Per Day (ICD-10-PCS; 2017-12-27)
PROC: 5A1D70Z Performance of Urinary Filtration, Intermittent, Less than 6 Hours Per Day (ICD-10-PCS; 2017-12-29)
PROC: 5A1D70Z Performance of Urinary Filtration, Intermittent, Less than 6 Hours Per Day (ICD-10-PCS; 2017-12-30)
PROC: 5A1D70Z Performance of Urinary Filtration, Intermittent, Less than 6 Hours Per Day (ICD-10-PCS; 2017-12-31)
PROC: 5A1D70Z Performance of Urinary Filtration, Intermittent, Less than 6 Hours Per Day (ICD-10-PCS; 2018-01-01)
PROC: 5A1D70Z Performance of Urinary Filtration, Intermittent, Less than 6 Hours Per Day (ICD-10-PCS; 2018-01-02)
DX: T82.7XXA Infection and inflammatory reaction due to other cardiac and vascular devices, implants and grafts, initial encounter (principal); A41.9 Sepsis, unspecified organism; N18.6 End stage renal disease; R65.21 Severe sepsis with septic shock; N39.0 Urinary tract infection, site not specified; L03.113 Cellulitis of right upper limb; I13.2 Hypertensive heart and chronic kidney disease with heart failure and with stage 5 chronic kidney disease, or end stage renal disease; R18.8 Other ascites; T82.898A Other specified complication of vascular prosthetic devices, implants and grafts, initial encounter; E10.22 Type 1 diabetes mellitus with diabetic chronic kidney disease; I50.9 Heart failure, unspecified; E87.5 Hyperkalemia; K31.84 Gastroparesis; Z53.29 Procedure and treatment not carried out because of patient's decision for other reasons; K76.1 Chronic passive congestion of liver; R21 Rash and other nonspecific skin eruption; M54.9 Dorsalgia, unspecified; G89.29 Other chronic pain; K52.9 Noninfective gastroenteritis and colitis, unspecified; R10.13 Epigastric pain; K59.00 Constipation, unspecified; E10.43 Type 1 diabetes mellitus with diabetic autonomic (poly)neuropathy; D63.1 Anemia in chronic kidney disease; Y83.2 Surgical operation with anastomosis, bypass or graft as the cause of abnormal reaction of the patient, or of later complication, without mention of misadventure at the time of the procedure; Z86.74 Personal history of sudden cardiac arrest; Y92.89 Other specified places as the place of occurrence of the external cause; Z99.2 Dependence on renal dialysis; Z88.5 Allergy status to narcotic agent; Z88.8 Allergy status to other drugs, medicaments and biological substances; Z91.040 Latex allergy status
CPT/HCPCS: 36415; 71045; 76700-TC; 80048; 80053; 82962; 83605; 83880; 84100-TC; 84484; 85025; 85610-TC; 85730-TC; 87040-TC; 87081; 90935; 90937; 93005; 96365; 96375; 99291; J0690; J0780; J1170; J1644; J1815; J2001; J2405; J2765; J3010; J3490; J7030; J7060

== ENCOUNTER 2018-01-05 21:30 | Inpatient (IN) | payer OTHER ==
[~2018-01-05] VITALS: Ht 170.2 cm; Wt 71.9 kg
[2018-01-05 22:00] VITALS: BP_SYST 186
--- NOTE | 2018-01-05 22:15 | NUR ---
# 20 gauge angiocath placed to LAC. Use of asceptic technique. Opsite placed over site. Blood return noted. Flushed with 10 cc of normal saline. No evidence of infiltration noted. Patient tolerated well.
--- NOTE | 2018-01-05 22:34 | NUR ---
Pt c/o Abdominal pain sharp & pressure 10/10, and nauseated with SOB @ rest. Abdomin firm, BM's are normal and frequency is normal. Last BM was today.
[2018-01-05 23:34] LABS: CALCIUM 9.4 mg/dL (8.4-11.0); CREATININE 7.09 mg/dL (0.55-1.30)
[2018-01-05 23:39] LABS: BASOPHILS % (AUTO) 0.6 % (0.0-2.0); EOSINOPHILS # (AUTO) 0.2 K/uL (0.0-0.4); EOSINOPHILS % (AUTO) 3.1 % (0.0-4.0); HEMATOCRIT 37.8 % (36-48); HEMOGLOBIN 11.9 g/dL (12.0-16.0); LYMPHOCYTES # (AUTO) 0.9 K/uL (1.0-5.5); LYMPHOCYTES % (AUTO) 11.9 % (20.5-51.5); MEAN CORPUSCULAR HEMOGLOBIN 30 pg (27-31); MEAN CORPUSCULAR HGB CONC 31 % (32-36); MEAN CORPUSCULAR VOLUME 95 fL (79.0-98.0); MONOCYTES # (AUTO) 0.6 K/uL (0.0-1.0); MONOCYTES % (AUTO) 8.2 % (1.7-9.3); NEUTROPHILS # (AUTO) 5.9 K/uL (1.8-7.7); NEUTROPHILS % (AUTO) 76.2 % (40.0-70.0); PLATELET COUNT (AUTO) 169 K/uL (130-430); RED CELL DISTRIBUTION WIDTH 17.1 % (9.0-15.0); WHITE BLOOD COUNT (AUTO) 7.6 K/uL (4.8-10.8)
[2018-01-05 23:40] LABS: ALBUMIN 3.6 g/dL (3.4-4.8); TOTAL BILIRUBIN 0.8 mg/dL (0.0-1.0)
[2018-01-05 23:45] LABS: POTASSIUM 6.8 mmol/L (3.5-5.1)
[2018-01-06] VITALS (8 sets, daily range): BP systolic 160–200
[2018-01-06] MEDS ORDERED: DEXTROSE 50% JECT 50 ML DISP.SYRIN IVP ONE
[2018-01-06] MEDS ORDERED: ALBUTEROL SULFATE 0.083% 2.5 MG/3 ML VIAL.NEB INH ONE
[2018-01-06] MEDS ORDERED: INSULIN REGULAR, HUMAN 10 UNITS/0.1 ML INJ IVP ONE
[2018-01-06] MEDS ORDERED: CALCIUM GLUCONATE 1 GM/10 ML VIAL IVP ONE
[2018-01-06] MEDS ORDERED: SODIUM BICARBONATE 8.4% JECT 150 MEQ in 0.45% NACL 1,000 ML IV SCH ×2
[2018-01-06] MEDS ORDERED: NACL 0.9% 1,000 ML IV ONE
--- NOTE | 2018-01-06 00:15 | NUR ---
ER at bedside examining patient.
[2018-01-06] MEDS ORDERED: SODIUM BICARBONATE 8.4% JECT 50 MEQ/50 ML SYRINGE ONE (00:36)
[2018-01-06] MEDS ORDERED: CALCIUM CHLORIDE 1 GM/10 ML DISP.SYRIN (14 mEq Ca++/SYR) ONE (00:42)
[2018-01-06] MEDS ORDERED: SODIUM BICARBONATE 8.4% JECT 50 MEQ/50 ML SYRINGE IVP ONE ×2 (01:00)
--- NOTE | 2018-01-06 01:00 | NUR ---
Pt refused abdominal Xray, and HHN tx. Pt's attending MD ordered pain medication to be given once she arrives to telemetry unit. Pt is restless, and is not cooperating until she is in Telemetry.
--- NOTE | 2018-01-06 01:20 | NUR ---
Patient will be admitted to care of Dr Isrrael Funez. Admitted to Telemetry unit. Will go to room 100A. Belongings list completed. Summary report printed. Report will be given at bedside to Norma PATEL.
--- NOTE | 2018-01-06 01:37 | NUR ---
ADMISSION NOTE Received patient from ER via jana, received report from AMANDA HERNANDEZ. Patient admitted with diagnosis of HYPERKALEMIA. Patient oriented to hospital routine, call light, toileting and safety-patient verbalized understanding.
[2018-01-06] MEDS ORDERED: HYDROmorphone 1 MG INJ. 1 MG/ML AMPUL IVP ONE (01:45)
[2018-01-06] MEDS: DIPHENHYDRAMINE INJ 50 MG/ML VIAL IVP PRN ×2 (01:48→20:47)
--- NOTE | 2018-01-06 02:13 | NUR ---
Spoke to Dr. Funez regarding patient's pain level and refusing to start dialysis until she has pain medication. Md ordered one time dose of Dilaudid 1mg IVP. Will carry out.
--- NOTE | 2018-01-06 02:15 | NUR ---
ADMISSION PHYSICAL ASSESSMENT NOTES; pt. sleeping when received, but arousable, was just given pain medication. Hemodialysis in progress, dialysis nurse at bedside, right AV shunt access. IV lock on left antecubital. awake, alert and oriented, pt. was just discharge this tuesday with the same problem, c/o abdominal pain. cardiac pattern on sinus rhythm. On room air, no shortness of breath noted. call light within reach. communication board updated. moves all extremities. Addendum: 01/06/18 at 0225 by Tatyana Dudley RN report given by nurse Green
--- NOTE | 2018-01-06 03:14 | NUR ---
NOTES: hemodialysis still in progress. pt. asleep. in no acute distress.
--- NOTE | 2018-01-06 04:39 | NUR ---
NOTES: hemodialysis almost done, pt. remain asleep and resting. continue to monitor.
--- NOTE | 2018-01-06 05:19 | NUR ---
NOTES: pt. still sleeping, hemodialysis nurse took 3 liters out. remains sinus rhythm. BP 169/74 HR 80.
--- NOTE | 2018-01-06 05:45 | NUR ---
NOTES: pt. still pretty drowsy but c/o abdominal pain and wants her Morphine,but she said she had reaction to the medication before as endorsed to me by nurse Green but it was cleared to give by Dr. Funez instead of Dilaudid IV, offered pain pill but does not want it. Nurse Norma talked to her but she said this time she is ok to have it, informed Benadryl IV is not due till 0800 and if she starts to get itchy, she has to wait and she agreed. noted skin very dry on her lower extremities and some discoloration and slightly swollen. some scratches noted also on upper extremities. call light within reach, bed alarm on, side rails up. pt. noted weakness and said she could barely walk, BSC at bedside.
[2018-01-06] MEDS: MORPHINE 2 MG/ML INJ. SYRINGE IVP PRN ×3 (06:03→17:31)
--- NOTE | 2018-01-06 06:05 | NUR ---
NOTES: pt. moaning, medicated with Morphine IV as ordered via left antecubital, IV site patent and flushing good.
--- NOTE | 2018-01-06 06:35 | NUR ---
CLOSING NOTES; pt. called and wants something for pain. went to her room and told her that she just had her pain shot. pt. seems to forget and reminded it is every 6 hours,dozing on and off. for further care and assistance.
--- NOTE | 2018-01-06 07:16 | NUR ---
endorsed pt. to incoming shift with nurse Rebecca, pt. sleeping when checked.
[2018-01-06] MEDS: HYDROcodone/ACETAMIN 5-325 MG TAB (NORCO/ VICODIN) PO PRN ×2 (07:45→13:36)
--- NOTE | 2018-01-06 08:17 | NUR ---
OPENING NOTE: RECEIVED REPORT FROM NIGHT NURSE. PATIENT IS UNCOMFORTABLE IN BED. PAIN COMPLAINING OF PAIN. PAIN MEDICATION GIVEN. BLOOD PRESSURE ELEVATED. OTHER VITAL SIGNS WNL. DR. GUERRERO PAGED TO INFORM OF BP AND ASK FOR MEDICATION RECONCILIATION. PATIENT EDUCATED ON PAIN MEDICATION AND SIDE EFFECTS AND INSTRUCTED TO CALL FOR ASSISTANCE. PATIENT VERBALIZED UNDERSTANDING. CALL LIGHT IN REACH, BED IN LOWEST POSITION, AND WILL CONTINUE TO MONITOR.
[2018-01-06] MEDS ORDERED: ONDANSETRON 4 MG ODT TAB PO PRN (08:45)
--- NOTE | 2018-01-06 10:07 | NUR ---
RN ROUNDS PATIENT IS RESTING IN BED. NO S/S OF DISTRESS OR SOB. PATIENT AWAKE AND ALERT. NO NEEDS AT THIS TIME. CALL LIGHT IN REACH, BED IN LOWEST POSITION, AND WILL CONTINUE TO MONITOR.
--- NOTE | 2018-01-06 10:25 | NUR ---
Nutrition Update Davey Scale 16 noted. Pt admitted for hyperkalemia and abd pain. Diet: renal standard BMI: 22.6 kg/m2 RD to follow per nutrition care standards.
[2018-01-06] MEDS ORDERED: DEXTROSE 50%-WATER 50 ML DISP.SYRIN IVP PRN ×2 (11:30)
[2018-01-06] MEDS ORDERED: GLUCOSE 15 GM GEL (in 37.5 GM TUBE) PO PRN ×2 (11:30)
[2018-01-06] MEDS: cloNIDine HCL 0.2 MG TABLET PO PRN ×2 (11:48→20:44)
[2018-01-06] MEDS: CARVEDILOL 3.125 MG TABLET (COREG) PO SCH ×2 (11:49→20:45)
--- NOTE | 2018-01-06 12:00 | NUR ---
RN ROUNDS PATIENT IS RESTING IN BED. PATIENT COMPLAINING OF PAIN AND WANTING DILAUDID INSTEAD OF MORPHINE. EXPLAINED THAT DR. JOYNER DID NOT AGREE. PATIENT EXPRESSED FEELING SHORT OF BREATH, SO 2 LITERS OXYGEN VIA NASAL CANULA PLACED. PATIENT STATED RELIEF. PAIN MEDICATION TO BE GIVEN WHEN TIME IS AVAILABLE. COMFORT MEASURES BEING APPLIED. CALL LIGHT IN REACH, BED IN LOWEST POSITION, AND WILL CONTINUE TO MONITOR.
[2018-01-06 13:35] LABS: CREATININE 4.88 mg/dL (0.55-1.30)
--- NOTE | 2018-01-06 14:27 | NUR ---
RN ROUNDS PATIENT IS RESTING IN BED. NO S/S OF DISTRESS OR SOB. PATIENT IS WAKE AND ALERT. DR. GUERRERO SAW THE PATIENT, NO CHANGES TO PAIN MEDICATION. CALL LIGHT IN REACH, BED IN LOWEST POSITION, AND WILL CONTINUE TO MONITOR.
[2018-01-06] MEDS: hydrALAZINE HCL 25 MG TABLET PO SCH ×2 (14:55→20:46)
--- NOTE | 2018-01-06 16:16 | NUR ---
RN ROUNDS PATIENT IS SLEEPING IN BED. NO S/S OF DISTRESS OR SOB. PATIENT ASKING FOR PAIN MEDICATION BUT MADE AWARE THAT THEY ARE NOT DUE JUST YET. WILL CONTINUE TO MONITOR. CALL LIGHT IN REACH, BED IN LOWEST POSITION, SAFETY PRECAUTIONS IN PLACE.
[2018-01-06] MEDS: INSULIN ASPART 100 UNITS/ML, 10 ML VIAL (NovoLOG) SUBCUT PRN (17:31)
--- NOTE | 2018-01-06 18:12 | NUR ---
CLOSING NOTE: PATIENT IS SLEEPING IN BED. NO S/S OF DISTRESS OR SOB. PATIENT IS ALERT AND ORIENTED. ALL NEEDS MET DURING SHIFT. CALL LIGHT IN REACH, BED IN LOWEST POSITION, AND WILL GIVE REPORT TO NIGHT NURSE.
--- NOTE | 2018-01-06 19:10 | NUR ---
change of shift.pt.presents quiescent affect;calm,somnolent.pt.submitted to hemo -dialysis:01/06/18. general status stable.respiratory status stable.call light/telephone w/in the pt's reach. Addendum: 01/07/18 at 0819 by Ford Boyd RN i was apprised the pt.was to submit to 2nd hemo-dialysis session post the initial hemo-dialysis: the hemo-dialysis msg conveyed to the tobacco conditioner the 2nd hemo dialysis was to close in succession in time frame;period.the pt.is to be submit to hemo dialysis:in am:01/07/18.is apprised.
--- NOTE | 2018-01-06 20:05 | NUR ---
pt.assessed.v/s assessed;b/p values elevated.pt.had requested medication pain;;linda was paged . returned the page.i apprised of the pt.requests for a change in pain medication frequency:from 6hrs. ordered:morphine:4mg q-4hrs/ prn;severs pain.pt.presents no c./o nausea.general status stable.respiratory status stable.call light/telephone w/in the pt's reach.
[2018-01-06] MEDS: MORPHINE 4 MG/ML INJ. SYRINGE IVP PRN (20:30)
--- NOTE | 2018-01-06 20:30 | NUR ---
i have administered the initial dose:morphine;4mg ivp q-4hrs.f/u re;pain medication efficacy and pain mgx per pain mgx protocol. Addendum: 01/06/18 at 2244 by Ford Boyd RN pt.capable to reposition self.
--- NOTE | 2018-01-06 20:45 | NUR ---
i have administered the 2100p medications.coreg,apresoline,catapres/prn for b/p elevation. f/u b/p assessment.pt requested a cup of coffee i have provide the coffee.no additional requests@this hour.
--- NOTE | 2018-01-06 21:55 | NUR ---
pt.assessed.pt.presents quiescent affect;calm,somnolent.general status stable.respiratory status stable. pt.capable to reposition self.call light/telephone w/i the pt's reach.
--- NOTE | 2018-01-07 00:15 | NUR ---
pt.assessed.v/s assessed;b/p values elevated;f/u;re;b/p medications.pt.requested medication;pain.i have administered morphine;4mg ivp.no c/o nausea.no additional requests;snacks blankets.general status stable.respiratory status stable.o2sat%=98% o2 therapy administered @2l/min via nasal cannulae.pt.capable to reposition self.call light/telephone placed w/in the pt's reach.
[2018-01-07] MEDS: MORPHINE 4 MG/ML INJ. SYRINGE IVP PRN ×6 (00:17→21:31)
[2018-01-07] MEDS: DIPHENHYDRAMINE INJ 50 MG/ML VIAL IVP PRN ×4 (02:15→21:30)
[2018-01-07] MEDS: cloNIDine HCL 0.2 MG TABLET PO PRN ×2 (02:20→11:12)
--- NOTE | 2018-01-07 02:23 | NUR ---
pt.assessed.pt.presents quiescent affect;calm.pt.had requested benadryl.i have administered the benadryl:25mg ivp. io have asses the b/p;elevated.i have administered clonidine;0.1mg po.pt.has requested coffee.i have provided the coffee.no additional requests.pt.capable to reposition self.general; status stable./respiratory status stable.call light/ telephone w/in the pt's reach.
--- NOTE | 2018-01-07 04:30 | NUR ---
pt.assessed.pt.had requested medication;pain.i have administered morphine;4mg ivp.pt.requested assessment of the b/p;i have assessed the b/p;values elevated.no c/o nausea.general status stable.respiratory status stable.pt.capable to reposition self.no additional requests@this hour.call light/telephone w/in the pt's reach.
[2018-01-07] MEDS: hydrALAZINE HCL 25 MG TABLET PO SCH ×3 (06:00→21:36)
--- NOTE | 2018-01-07 06:15 | NUR ---
pt.assessed.b/p assessed.values;elevated.i have held the apresoline:0600a pt.to submit to hemo dialysis this am. i have weighed the pt.:2/t chf,hemo-dialysis hx.no requests@this hour.blood glucose value;148mg/dl.call light/ telephone w/in the pt's reach.
--- NOTE | 2018-01-07 07:25 | NUR ---
PATIENT IS SLEEPING BUT AROUSABLE, A/OX4. SR ON MONITOR. IV SITE AT LEFT AC, #20, SL. PATIENT VERBALIZED UNDERSTANDING. CALL LIGHT WITH REACH, BED LOCKED AT THE LOWEST POSITION, AND WILL CONTINUE TO MONITOR.
[2018-01-07 07:30] LABS: ALBUMIN 3.1 g/dL (3.4-4.8); CALCIUM 9.1 mg/dL (8.4-11.0); CREATININE 5.66 mg/dL (0.55-1.30); TOTAL BILIRUBIN 0.8 mg/dL (0.0-1.0)
[2018-01-07 07:40] LABS: POTASSIUM 5.9 mmol/L (3.5-5.1)
[2018-01-07 08:00] VITALS: BP_SYST 163
[2018-01-07] MEDS: CARVEDILOL 3.125 MG TABLET (COREG) PO SCH ×2 (08:07→20:16)
--- NOTE | 2018-01-07 08:30 | NUR ---
HD started. V/S stable. No signs of acute distress noted.
[2018-01-07] MEDS: INSULIN ASPART 100 UNITS/ML, 10 ML VIAL (NovoLOG) SUBCUT PRN ×2 (11:10→18:20)
[2018-01-07] MEDS: HYDROcodone/ACETAMIN 5-325 MG TAB (NORCO/ VICODIN) PO PRN (11:11)
--- NOTE | 2018-01-07 11:22 | NUR ---
HD COMPLETED. 4LITER IS REMOVED.
[2018-01-07 11:27] VITALS: BP_SYST 186
--- NOTE | 2018-01-07 11:30 | NUR ---
BLOOD SUGAR 178. PATIENT REFUSED COVERAGE DESPITE EXPLANATION OF BENEFITS.
--- NOTE | 2018-01-07 13:52 | NUR ---
PATIENT IS C/O ITCHINESS; BENADRYL IVP WILL BE GIVEN.
[2018-01-07 15:07] VITALS: BP_SYST 177
--- NOTE | 2018-01-07 15:56 | NUR ---
PATIENT IS RESTING, NO SIGNS OF DISTRESS NOTED
--- NOTE | 2018-01-07 18:05 | NUR ---
PATIENT'S BLOOD SUGAR AT 200. RI IS GIVEN PER SLIDING SCALE.
[2018-01-07 19:05] VITALS: BP_SYST 142
--- NOTE | 2018-01-07 19:05 | NUR ---
Initial Notes Received patient in bed awake alert oriented x4. Mild weakness noted to LE needs assistance to ambulate. IV noted R hand G 22 no infiltrate and with good blood return. R AV shunt noted as dialysis access bruit and thrill present. Discuss plan of care with patient and verbalize understanding, will cont to monitor.
--- NOTE | 2018-01-07 20:20 | NUR ---
Refused Insulin Patient refused insulin. Blood Glucose @ 178. Explain risk and benefits but still refuse. Respected patient's decision. Will monitor.
--- NOTE | 2018-01-07 21:05 | NUR ---
Rounds Patient is resting at this time. No c/o pain and no s/s of any distress noted. Call light in reach, will cont to monitor.
--- NOTE | 2018-01-07 23:05 | NUR ---
Rounds Patient is resting comfortably at this time. No s/s of any distress and no c/o pain noted. Call light in reach, will cont to monitor.
[2018-01-08 00:07] VITALS: BP_SYST 161
[2018-01-08] MEDS: MORPHINE 4 MG/ML INJ. SYRINGE IVP PRN ×6 (01:02→21:46)
--- NOTE | 2018-01-08 01:05 | NUR ---
Rounds Patient is resting comfortably at this time. Refuse any assistance at this time. No c/o pain and no s/s of any distress noted. Call light in reach, will cont to monitor.
--- NOTE | 2018-01-08 03:05 | NUR ---
Rounds Snacks provided as requested by patient. No c/o pain and no s/s of any distress noted. Call light in reach, will cont to monitor.
[2018-01-08] MEDS: DIPHENHYDRAMINE INJ 50 MG/ML VIAL IVP PRN ×3 (05:05→19:53)
[2018-01-08] MEDS: hydrALAZINE HCL 25 MG TABLET PO SCH ×3 (05:13→21:45)
--- NOTE | 2018-01-08 06:35 | NUR ---
End of shift notes Patient is resting in bed at this time. No s/s of any distress noted. All needs met and anticipated by noc nurse. Bed alarm on, side rails up x2 and bed in low position. Will endorse to AM shift.
[2018-01-08 06:56] LABS: ALBUMIN 3.3 g/dL (3.4-4.8); CALCIUM 9.4 mg/dL (8.4-11.0); CREATININE 5.11 mg/dL (0.55-1.30); TOTAL BILIRUBIN 0.9 mg/dL (0.0-1.0)
--- NOTE | 2018-01-08 07:44 | NUR ---
Opening Note received report from night filler RN, pt resting in bed, A&Ox4, respirations even and unlabored on room air, denies any SOB, pain is controlled at this time, no acute distress noted, IV site clean, dry, and intact, pt educated on use of call light and asked to call for assistance, pt verbalized understanding, call light in reach, bed in low position, bed alarm on, fall and aspiration precautions in place.
[2018-01-08 08:00] VITALS: BP_SYST 173
[2018-01-08] MEDS: CARVEDILOL 3.125 MG TABLET (COREG) PO SCH ×2 (08:02→21:45)
--- NOTE | 2018-01-08 08:03 | NUR ---
Medication/Refuse bed alarm pt educated on use and side effects of medication, pt verbalized understanding, tolerated medication administration well, pt educated on use of bed alarm for pt safety, pt refusing bed alarm, pt up in bed eating breakfast, fall and aspiration precautions in place.
--- NOTE | 2018-01-08 09:15 | NUR ---
Pain Management/Medication pt complaint of pain 11/11 to upper abdomen, pt educated on use and side effects of PRN pain medication, pt verbalized understanding, pt tolerated medication administration well, no acute distress noted, fall and aspiration precautions in place. Addendum: 01/08/18 at 1647 by Marilin Mortensen RN add: verified pts medications allergies with pt before administration, pt denies allergies to morphine
--- NOTE | 2018-01-08 09:35 | NUR ---
Spoke with Spoke with Dr. Wright, informed MD that pt does not want US paracentesis today, she would like it tomorrow, okay per MD to have US paracentesis tomorrow.
[2018-01-08] MEDS: HYDROcodone/ACETAMIN 5-325 MG TAB (NORCO/ VICODIN) PO PRN ×2 (10:42→19:53)
--- NOTE | 2018-01-08 10:42 | NUR ---
Pain Management/Medication pt complaint of pain 6/10 to upper abdomen, pt educated on use and side effects of PRN pain medications, pt verbalized understanding, tolerated medication administration well, no acute distress noted, fall and aspiration precautions in place.
[2018-01-08] MEDS: cloNIDine HCL 0.2 MG TABLET PO PRN ×2 (10:49→23:29)
--- NOTE | 2018-01-08 10:50 | NUR ---
Blood Pressure/Medication pt BP 173/101, PRN catapres indicated per orders, pt educated on use and side effects of medication, pt verbalized understanding, tolerated medication administration well, no acute distress noted, fall and aspiration precautions in place.
[2018-01-08] MEDS: INSULIN ASPART 100 UNITS/ML, 10 ML VIAL (NovoLOG) SUBCUT PRN ×2 (11:14→21:47)
--- NOTE | 2018-01-08 11:15 | NUR ---
Blood glucose pt blood glucose 255, pt educated on use and side effects of insulin per sliding scale, pt verbalized understanding, tolerated medication administration well, no acute distress noted, fall and aspiration precautions in place.
[2018-01-08 12:00] VITALS: BP_SYST 150
--- NOTE | 2018-01-08 13:30 | NUR ---
Pain Management/Itching/Medication pt complaint of pain 8/10 to upper abdomen, pt complaint of itching, PRN pain medication and PRN benadryl indicated per orders, pt educated on use and side effects of medications, pt verbalized understanding, pt tolerated medication administration well, no acute distress noted, fall and aspiration precautions in place.
--- NOTE | 2018-01-08 14:55 | NUR ---
Medication pt educated on medication use and side effects, pt verbalized understanding, tolerated medication administration well, no acute distress noted, fall and aspiration precautions in place.
[2018-01-08 16:00] VITALS: BP_SYST 152
--- NOTE | 2018-01-08 17:13 | NUR ---
Blood Glucose blood glucose 129, no insulin indicated per sliding scale, no acute distress noted, fall and aspiration precautions in place.
--- NOTE | 2018-01-08 17:36 | NUR ---
Pain Management/Medication pt complaint of pain 11/11 to upper abdomen, pt educated on use and side effects of PRN pain medication, pt verbalized understanding, tolerated medication administration well, no acute distress noted, fall and aspiration precautions in place. Addendum: 01/08/18 at 1842 by Marilin Mortensen RN add: BP 143/95, HR 69.
--- NOTE | 2018-01-08 18:40 | NUR ---
Closing Note/Refuse bed alarm pt resting in bed, A&Ox4, respirations even and unlabored, pt reports pain controlled at this time, denies any SOB, no acute distress noted, IV site clean, dry, and intact, pt educated on use of call light and asked to call for assistance, pt verbalized understanding, pt educated on use of bed alarm for pt safety, pt refusing bed alarm, bed in low position, fall and aspiration precautions in place, will endorse care to mini shifter RN.
--- NOTE | 2018-01-08 19:10 | NUR ---
OPENING NOTES Late entry due to patient care. Bedside report received from day shift nurse. Patient received AOx4, resting in bed, patient denies any pain or discomfort at this time. Breathing is even and unlabored. Call light is with patient, instructed to call for any assistance if needed, patient verbalized understanding. Skin is warm and dry to touch, no signs of hypoglycemia. Offered snacks to patient but she refused. Patient refuses to have bed alarm on despite being educated on its purpose and benefits, will continue to encourage throughout shift. Bed is locked and at lowest position. Will continue to monitor.
[2018-01-08 20:00] VITALS: BP_SYST 148
--- NOTE | 2018-01-08 21:46 | NUR ---
PAIN Patient complains of 8/10 abdominal pain at this time. Morphine administered per PRN order. Call light with patient. Will continue to monitor and reassess.
[2018-01-08 23:22] VITALS: BP_SYST 164
--- NOTE | 2018-01-08 23:29 | NUR ---
HIGH BP Patient's blood pressure is 162/96. Will administer Catapres per PRN orders. Patient is resting in bed, no s/s of acute distress noted. Patient denies pain at this time. Breathing even and unlabored. Call light with patient. Will continue to monitor and reassess.
--- NOTE | 2018-01-09 00:30 | NUR ---
BP REASSESSED BP at 150/91 at this time. Patient resting in bed. No signs of discomfort noted. Chest rise and fall even bilaterally. Call light with patient. Will continue to monitor.
[2018-01-09] MEDS: MORPHINE 4 MG/ML INJ. SYRINGE IVP PRN ×6 (01:43→22:40)
[2018-01-09] MEDS: DIPHENHYDRAMINE INJ 50 MG/ML VIAL IVP PRN ×3 (01:43→18:39)
--- NOTE | 2018-01-09 01:43 | NUR ---
PAIN Patient complained of 8/10 abdominal pain at this time. Morphine administered per PRN order. Will continue to monitor and reassess. Call light with patient.
--- NOTE | 2018-01-09 03:30 | NUR ---
ROUNDS Patient in bed sleeping comfortably. No signs of discomfort noted. Chest rise and fall even bilaterally. Call light with patient. Will continue to monitor.
--- NOTE | 2018-01-09 05:30 | NUR ---
PAIN Patient complained of 8/10 abdominal pain. Will administer Morphine per PRN order. Call light with patient. Will continue to monitor and reassess.
[2018-01-09] MEDS: hydrALAZINE HCL 25 MG TABLET PO SCH ×3 (05:50→22:07)
[2018-01-09] MEDS: INSULIN ASPART 100 UNITS/ML, 10 ML VIAL (NovoLOG) SUBCUT PRN ×3 (06:08→17:43)
--- NOTE | 2018-01-09 06:33 | NUR ---
CLOSING NOTES Patient in bed resting, eyes closed, appears to be sleeping. No s/s of acute distress noted. Breathing is even and unlabored. HOB raised. IV site is patent, no signs of infiltration or infection noted. All of patient's needs met throughout shift. Fall and safety precautions maintained throughout shift. Skin is warm and dry, no signs of hypoglycemia noted. Will continue to monitor until patient care is endorsed to oncoming day shift nurse.
--- NOTE | 2018-01-09 07:20 | NUR ---
Opening Note patient resting in bed, alert and oriented x 4, assessment complete, educated the patient on plan of care and call light system and to call for any assistance, patient verbalized understanding, bed in lowest position, two side rails up, call light within reach, fall and aspiration precautions in place.
--- NOTE | 2018-01-09 07:45 | NUR ---
Called radiology inquired about time for paracentesis and if patient needs to be NPO; patient does not need to be NPO, radiologist available between 0900 - 1000 today, patient informed.
[2018-01-09 08:01] VITALS: BP_SYST 150
[2018-01-09] MEDS: CARVEDILOL 3.125 MG TABLET (COREG) PO SCH ×2 (08:20→20:54)
--- NOTE | 2018-01-09 08:20 | NUR ---
Medication patient resting in bed, educated on morning medication uses and potential side effects, patient verbalized understanding and tolerated well, patient requesting anti anxiety medication prior to paracentesis today, will follow up with MD, patient bed in lowest position, two side rails up, call light within reach, fall and aspiration cautions in place.
--- NOTE | 2018-01-09 08:45 | NUR ---
MD FUNG CALLED [facility] AT [phone]YUE LORD ANDREW CERTIFIED DRUG COUNSELOR.
[2018-01-09] MEDS ORDERED: LIDOCAINE 1%, 20 ML MDV 20 ML ONE (09:34)
--- NOTE | 2018-01-09 09:36 | NUR ---
2ND PAGE OUT TO MD CALLED [place] [facility] AT [phone] SPOKE WITH EXCHANGE, FATOU ALLEN FORMWORK CARPENTER.
--- NOTE | 2018-01-09 09:50 | NUR ---
MD call back spoke with Dr. Funez, explained to her that patient is agreeable to undergo paracentesis however is requesting anti-anxiety medication, orders received, will follow up and also informed the patient that orders were received, patient verbalized understanding.
[2018-01-09] MEDS ORDERED: LORazepam 2 MG/ML VIAL IVP ONE (10:00)
--- NOTE | 2018-01-09 10:15 | NUR ---
Pain Medication patient resting in bed, patient stated pain is an 8/10, educated patient on medication usage and side effects, patient verbalized understanding well, patient tolerated well, IV line patent and infusing well, and no other complaints at the moment, bed in lowest position, call light within reach, fall and aspiration precautions in place.
--- NOTE | 2018-01-09 10:45 | NUR ---
US Paracentesis patient resting in bed, US tech and Radiologist at bedside, determined that there is not enough fluid to remove from abdomen and patient is to undergo hemodialysis today, Dr. Funez at nursing station, also informed. Ativanx1 IVP not given and returned. Addendum: 01/09/18 at 1121 by Felix Koenig RN Dr. Funez spoke with Dr. Britton and requesting US paracentesis to be done today, Ativan IVP x1 given per orders and patient tolerating US Paracentesis well at this time. Blood glucose checked and patient refusing insulin at this time, will try again later.
--- NOTE | 2018-01-09 11:30 | NUR ---
Patient refused patient refused insulin coverage per MD orders, patient states, " I'm not hungry and I'm not going to eat lunch."
[2018-01-09 11:33] VITALS: BP_SYST 158
--- NOTE | 2018-01-09 14:25 | NUR ---
Pain Medication patient resting in bed, patient stated pain is an 9/10, educated patient on medication usage and side effects, patient verbalized understanding well, patient tolerated well, IV line patent and infusing well, and no other complaints at the moment, bed in lowest position, call light within reach, fall and aspiration precautions in place.
[2018-01-09 15:09] VITALS: BP_SYST 154
--- NOTE | 2018-01-09 15:30 | NUR ---
Hemodialysis at this time, patient tolerating well, in stable condition. Addendum: 01/09/18 at 1900 by Felix Koenig RN 4L out.
--- NOTE | 2018-01-09 17:15 | NUR ---
RN rounds/Blood glucose check patient resting in bed, undergoing HD at this time, tolerating well, blood glucose checked and insulin coverage provided per MD orders, no other needs at this time, bed in lowest position, two side rails up, call light within reach, fall and aspiration precautions in place.
--- NOTE | 2018-01-09 18:30 | NUR ---
Pain Medication patient resting in bed, patient stated pain is an 8/10, also requesting Benadryl, educated patient on medication usage and side effects, patient verbalized understanding well, patient tolerated well, IV line patent and infusing well, and no other complaints at the moment, bed in lowest position, call light within reach, fall and aspiration precautions in place.
[2018-01-09] MEDS: cloNIDine HCL 0.2 MG TABLET PO PRN (18:49)
--- NOTE | 2018-01-09 18:50 | NUR ---
High blood pressure post Hemodialysis, 190/88, clonidine PRN administered per MD orders.
--- NOTE | 2018-01-09 19:02 | NUR ---
Closing note patient resting in bed, post Hemodialysis, stable condition, bed in lowest position, two side rails up, call light within reach, fall and aspiration precautions in place, will endorse report to NOC shift nurse.
--- NOTE | 2018-01-09 19:36 | NUR ---
Initial note: Received handoff report from dayshift RN. Patient is awake in bed, no signs or symptoms of acute distress noted. Denies pain or shortness of breath. Alert and oriented x4. 2L NC in place. IV noted to patient's left hand, site is patent, benign, and saline locked. Right AV shunt for hemodialysis noted. Safety and fall precautions in place. Call light is with patient, encouraged patient to use call light for any needs. Will continue with plan of care.
[2018-01-09 20:37] VITALS: BP_SYST 165
--- NOTE | 2018-01-09 22:16 | NUR ---
Rounds: Patient is in bed awake, no signs or symptoms of acute distress noted. 2L NC in place. Call light is with patient, safety and fall precautions in place. Will continue monitoring.
[2018-01-09 22:58] LABS: BODY FLUID GLUCOSE 158 mg/dL
[2018-01-09 22:59] LABS: BODY FLUID TOTAL PROTEIN 3.7 g/dL
--- NOTE | 2018-01-10 00:12 | NUR ---
Rounds: Patient is sleeping, no acute distress exhibited. Respirations unlabored with even chest rise and fall while on 2L NC. Call light is with patient. Will continue monitoring.
[2018-01-10] MEDS: HYDROcodone/ACETAMIN 5-325 MG TAB (NORCO/ VICODIN) PO PRN ×3 (01:47→21:21)
[2018-01-10 02:01] VITALS: BP_SYST 167
[2018-01-10] MEDS: cloNIDine HCL 0.2 MG TABLET PO PRN (02:27)
[2018-01-10] MEDS: DIPHENHYDRAMINE INJ 50 MG/ML VIAL IVP PRN ×3 (02:42→17:06)
[2018-01-10] MEDS: MORPHINE 4 MG/ML INJ. SYRINGE IVP PRN ×6 (02:43→22:27)
--- NOTE | 2018-01-10 02:43 | NUR ---
Pain management: Patient complained of severe abdominal pain, PRN Morphine indicated. Education provided regarding side effects and use, patient verbalized understanding. Administered medication per MD order. Call light is with patient. Safety and fall precautions in place. Will continue monitoring.
[2018-01-10 02:48] LABS: BODY FLUID SOURCE/ TYPE ASCITES; SOURCE/TYPE ,BODY FLUID ASCITES
[2018-01-10 02:49] LABS: APPEARANCE,SPUN,BODY FLUID CLEAR (CLEAR); BF APPEARANCE UNSPUN CLOUDY (CLEAR); BODY FLUID COLOR RED (LT YELLOW); BODY FLUID TOTAL VOLUME 975 mL; RBC, BODY FLUID 12883 /uL
[2018-01-10 02:50] LABS: EOSINOPHIL, BODY FLUID 3 %; LYMPHOCYTES, BODY FLUID 30 %; MONOCYTES,BODY FLUID 52 %; NEUTROPHIL, BODY FLUID 15 %
--- NOTE | 2018-01-10 04:05 | NUR ---
Rounds: Patient is asleep, no signs or symptoms of acute distress noted. 2L NC remains in place, patient's breathing is even and unlabored. Safety and fall precautions in place, will continue to monitor.
[2018-01-10] MEDS: hydrALAZINE HCL 25 MG TABLET PO SCH ×3 (06:07→21:14)
[2018-01-10] MEDS: INSULIN ASPART 100 UNITS/ML, 10 ML VIAL (NovoLOG) SUBCUT PRN ×3 (06:11→21:25)
[2018-01-10 06:51] LABS: BASOPHILS % (AUTO) 0.5 % (0.0-2.0); EOSINOPHILS # (AUTO) 0.2 K/uL (0.0-0.4); EOSINOPHILS % (AUTO) 3.8 % (0.0-4.0); HEMATOCRIT 36.8 % (36-48); LYMPHOCYTES # (AUTO) 1.1 K/uL (1.0-5.5); LYMPHOCYTES % (AUTO) 21.8 % (20.5-51.5); MEAN CORPUSCULAR HEMOGLOBIN 31 pg (27-31); MEAN CORPUSCULAR HGB CONC 33 % (32-36); MEAN CORPUSCULAR VOLUME 96 fL (79.0-98.0); MONOCYTES # (AUTO) 0.4 K/uL (0.0-1.0); MONOCYTES % (AUTO) 7.4 % (1.7-9.3); NEUTROPHILS # (AUTO) 3.4 K/uL (1.8-7.7); NEUTROPHILS % (AUTO) 66.5 % (40.0-70.0); PLATELET COUNT (AUTO) 171 K/uL (130-430); RED BLOOD CELL COUNT(AUTO) 3.86 MIL/uL (4.2-6.2); RED CELL DISTRIBUTION WIDTH 16.4 % (9.0-15.0); WHITE BLOOD COUNT (AUTO) 5.1 K/uL (4.8-10.8)
[2018-01-10 06:53] LABS: CALCIUM 8.8 mg/dL (8.4-11.0); CREATININE 5.5 mg/dL (0.55-1.30)
--- NOTE | 2018-01-10 06:57 | NUR ---
Closing note: Patient is awake, no acute distress noted. 2L NC remains in place. Complained of abdominal pain 8/, administered indicated PRN morphine per MD order. Education regarding medication indications and side effects provided prior to administration, patient verbalized understanding. All needs met and attended to. Will endorse care to dayshift RN.
--- NOTE | 2018-01-10 07:20 | NUR ---
Opening Note patient resting in bed, on her phone, no signs of distress, no complaints of pain at this time, breathing unlabored on room air, educated patient on use of call light for assistance, verbalized understanding, call light and bedside table left within reach, will be back to check on patient
[2018-01-10] MEDS: CARVEDILOL 3.125 MG TABLET (COREG) PO SCH ×2 (08:22→21:13)
--- NOTE | 2018-01-10 08:28 | NUR ---
Medication Administration patient educated on medication, verbalized understanding, tolerated well by mouth, abdomen notably distended, breathing unlabored on room air, no other needs at this time, educated patient on use of call light for assistance, verbalized understanding, call light and bedside table left within reach, will continue to monitor and reassess pain
[2018-01-10 08:31] VITALS: BP_SYST 149
--- NOTE | 2018-01-10 11:05 | NUR ---
Pain meds administered at this time along with benedryl, educated patient about meds, verbalized understanding, IV site remains patent, no other needs at this time, educated patient on use of call light for assistance, verbalized understanding, call light and bedside table left within reach, will continue to monitor
[2018-01-10 11:21] VITALS: BP_SYST 149
--- NOTE | 2018-01-10 11:39 | NUR ---
Blood Sugar Assessed was 153, patient refused insulin coverage, educated her on importance of blood sugar management, verbalized understanding, still does not want insulin, patient stated pain has decreased but still present, no other needs at this time, educated patient on use of call light for assistance, verbalized understanding, call light and bedside table left within reach, will continue to monitor
[2018-01-10 11:44] LABS: WBC, BODY FLUID 10 /uL
--- NOTE | 2018-01-10 12:15 | NUR ---
Spoke with Dr. Funez over phone, asked about patient's condition and results from paracentesis, stated patient may be discharged today when she makes rounds and to inform patient, also requested stool softener for patient because she is complaining of constipation x5 days
[2018-01-10] MEDS ORDERED: BISACODYL 10 MG/SUPPOSITORY RC ONE (12:30)
--- NOTE | 2018-01-10 14:36 | NUR ---
BP Med/Morphine/Pt Refused Suppository BP assessed and med was administered as scheduled, educated her regarding med, verbalized understanding, also requested morphine for pain, educated her regarding med, verbalized understanding, IV site remains patent, patient refused suppository because she just had a large bowel movement, breathing remains unlabored on room air, she is sitting on side of bed with legs dangling, educated patient on use of call light for assistance, verbalized understanding, call light and bedside table left within reach, will continue to monitor
--- NOTE | 2018-01-10 16:55 | NUR ---
Dr. Funez Rounds at this time, stated patient is feeling nauseous and stated will order PRN Zofran IV instead and reglan, also stated will probably schedule dialysis for tomorrow AM and try to discharge patient after that, will implement orders
[2018-01-10] MEDS ORDERED: ONDANSETRON HCL 4 MG/2 ML VIAL IM PRN (17:00)
[2018-01-10] MEDS ORDERED: METOCLOPRAMIDE HCL 10 MG/2 ML VIAL IVP ONE (17:00)
--- NOTE | 2018-01-10 17:10 | NUR ---
Blood Sugar/Benedryl blood sugar assessed and insulin administered per protocol, patient educated regarding med, verbalized understanding, tolerated well on left upper arm, also requested benedryl for itchiness, educated her regarding med, verbalized understanding, IV remains patent, educated patient on use of call light for assistance, verbalized understanding, call light and bedside table left within reach, will continue to monitor
--- NOTE | 2018-01-10 18:40 | NUR ---
Closing Note patient resting in bed, awake and alert, no signs of distress, breathing unlabored on room air, IV site saline locked, safety precautions in place, bedside table and call light left within reach, will endorse to rn document improvement nurse
--- NOTE | 2018-01-10 19:42 | NUR ---
PM assessment pt. a/ox4, vital signs stable, no distress noted, denies pain, updated pt. with plan of care, encouraged pt. to use call light for assistance, pt. verbalized understanding, bed in lowest position, bed alarm on.
[2018-01-10 20:00] VITALS: BP_SYST 152
--- NOTE | 2018-01-10 22:00 | NUR ---
RN ROUNDS PT. SITTING UP IN BED EATING DINNER, NO DISTRESS NOTED, DENIES PAIN AT THIS TIME, CALL LIGHT WITHIN REACH, BED IN LOWEST POSITION.
--- NOTE | 2018-01-11 | NUR ---
RN ROUNDS PT. RESTING QUIETLY, VITAL SIGNS STABLE, NO DISTRESS NOTED, DENIES PAIN, CALL LIGHT WITHIN REACH, BED IN LOWEST POSITION.
--- NOTE | 2018-01-11 01:07 | NUR ---
ENDORSED CARE ENDORSED CARE TO LEON RN.
--- NOTE | 2018-01-11 01:15 | NUR ---
Endorsement of care received from offgoing nurse. Patient is sleeping, resting comfortably in bed. No SOB, no acute distress, no signs of pain or discomfort at this time. Bed is locked, in the lowest position, 2x side rails up, bed alarm is on. Call light is within reach. Will continue with plan of care.
[2018-01-11] MEDS: MORPHINE 4 MG/ML INJ. SYRINGE IVP PRN ×3 (02:29→12:08)
--- NOTE | 2018-01-11 02:30 | NUR ---
Patient is complaining of severe pain in her abdomen. Provided morphine pain medication PRN per MD order, see eMAR for details.
--- NOTE | 2018-01-11 03:58 | NUR ---
Patient is sleeping, resting comfortably in bed. No SOB, no acute distress, no sgins of pain or discomfort at this time. Call light is within reach.
[2018-01-11] MEDS: hydrALAZINE HCL 25 MG TABLET PO SCH (05:51)
--- NOTE | 2018-01-11 05:59 | NUR ---
Patient's bedside blood glucose is 151. Patient refuses 2 units insulin coverage at this time.
[2018-01-11 06:47] LABS: CALCIUM 9.3 mg/dL (8.4-11.0); CREATININE 6.92 mg/dL (0.55-1.30); POTASSIUM 5.6 mmol/L (3.5-5.1)
--- NOTE | 2018-01-11 07:25 | NUR ---
CLOSING NOTES Handoff report given to oncoming dayshift nurse at the bedside. Patient is awake and alert, resting comfortably in bed talking on the phone. Patient is complaining of severe pain at this time. Dayshift nurse aware and will medicate. Bed is locked, in the lowest position, 2x side rails up. Call light is within reach. Fall and safety precautions maintained. All needs have been met during this shift.
[2018-01-11] MEDS: DIPHENHYDRAMINE INJ 50 MG/ML VIAL IVP PRN (07:46)
--- NOTE | 2018-01-11 08:00 | NUR ---
OPENING NOTE: RECEIVED REPORT FROM NIGHT NURSE AT BEDSIDE. PATIENT IS AWAKE AND ALERT, ABLE TO EXPRESS NEEDS, AND ASK FOR ASSISTANCE. VITAL SIGNS WNL, ASSESSMENT COMPLETE. PATIENT COMPLAINED OF PAIN 8/. PAIN MEDICATION WAS ADMINISTERED. PATIENT EDUCATED ON PAIN MEDICATION SIDE EFFECTS AND INSTRUCTED TO CALL FOR ASSISTANCE BEFORE GETTING UP. PATIENT VERBALIZED UNDERSTANDING. CALL LIGHT IN REACH, BED IN LOWEST POSITION, AND WILL CONTINUE TO MONITOR.
[2018-01-11 08:24] VITALS: BP_SYST 144
[2018-01-11] MEDS ORDERED: METOCLOPRAMIDE HCL 10 MG/2 ML VIAL IVP SCH (09:00)
[2018-01-11] MEDS: CARVEDILOL 3.125 MG TABLET (COREG) PO SCH (09:00)
--- NOTE | 2018-01-11 10:00 | NUR ---
RN ROUNDS PATIENT CURRENTLY IN DIALYSIS
[2018-01-11] MEDS ORDERED: METO-290 PO (10:29)
[2018-01-11] MEDS: cloNIDine HCL 0.2 MG TABLET PO PRN (11:38)
[2018-01-11] MEDS: INSULIN ASPART 100 UNITS/ML, 10 ML VIAL (NovoLOG) SUBCUT PRN (12:10)
[2018-01-11 12:22] VITALS: BP_SYST 192
--- NOTE | 2018-01-11 12:33 | NUR ---
RN ROUNDS PATIENT IS STILL WITH DIALYSIS. NO S/S OF DISTRESS OR SOB. PATIENT PAIN MEDICATION WAS GIVEN. EDUCATED ON SIDE EFFECTS AND ASKING FOR HELP. PATIENT EATING LUNCH. NO OTHER NEEDS AT THIS TIME. CALL LIGHT IN REACH, BED IN LOWEST POSITION, AND WILL CONTINUE TO MONITOR.
[2018-01-11 13:13] VITALS: BP_SYST 176
--- NOTE | 2018-01-11 14:50 | NUR ---
D/C Patient Patient given medication reconciliation form and D/C instructions. Exit Care provided. Patient verbalized understanding. MD discussed with patient the results and treatment provided. Ambulatory with steady gait for discharge to home. Patient in stable condition, ID band removed. IV catheter removed, intact and dressing applied, no active bleeding. Rx of Reglan waiting at pharmacy. Patient educated on pain management. All belongings sent with patient.
== END 2018-01-11 14:50 | disposition home or self-care (01) | DRG 432 ==
LOC: SED 21:30 → STU 01-06 00:57 → SMU 01-08 08:59
PROVIDERS: ADMIT Internal Medicine Nephrology; ATTEND Internal Medicine Nephrology
PROC: 5A1D70Z Performance of Urinary Filtration, Intermittent, Less than 6 Hours Per Day (ICD-10-PCS; 2018-01-06)
PROC: 5A1D70Z Performance of Urinary Filtration, Intermittent, Less than 6 Hours Per Day (ICD-10-PCS; 2018-01-07)
PROC: 0W9G3ZZ Drainage of Peritoneal Cavity, Percutaneous Approach (ICD-10-PCS; principal; 2018-01-09)
PROC: 5A1D70Z Performance of Urinary Filtration, Intermittent, Less than 6 Hours Per Day (ICD-10-PCS; 2018-01-09)
PROC: 5A1D70Z Performance of Urinary Filtration, Intermittent, Less than 6 Hours Per Day (ICD-10-PCS; 2018-01-11)
DX: K74.60 Unspecified cirrhosis of liver (principal); N18.6 End stage renal disease; I13.2 Hypertensive heart and chronic kidney disease with heart failure and with stage 5 chronic kidney disease, or end stage renal disease; R18.8 Other ascites; E87.1 Hypo-osmolality and hyponatremia; Q87.81 Alport syndrome; E87.5 Hyperkalemia; M54.9 Dorsalgia, unspecified; G89.29 Other chronic pain; I50.9 Heart failure, unspecified; E10.49 Type 1 diabetes mellitus with other diabetic neurological complication; E10.39 Type 1 diabetes mellitus with other diabetic ophthalmic complication; E10.43 Type 1 diabetes mellitus with diabetic autonomic (poly)neuropathy; D63.1 Anemia in chronic kidney disease; E10.22 Type 1 diabetes mellitus with diabetic chronic kidney disease; K31.84 Gastroparesis; Z88.5 Allergy status to narcotic agent; Z88.8 Allergy status to other drugs, medicaments and biological substances; Z90.49 Acquired absence of other specified parts of digestive tract; Z91.040 Latex allergy status; Z99.2 Dependence on renal dialysis
CPT/HCPCS: 36415; 49083; 71045; 80048; 80053; 82947-TC; 82962; 83690-TC; 83880; 84157-TC; 84484; 84703; 85025; 87081; 89051-TC; 89060-TC; 90935; 90937; 93005; 96374; 96375; 99291; J0610; J1170; J1200; J1815; J2001; J2060; J2270; J2765; J7030

== ENCOUNTER 2018-02-04 07:23 | Inpatient (IN) | payer OTHER ==
[~2018-02-04] VITALS: Ht 170.2 cm; Wt 71.7 kg
[2018-02-04 07:23] VITALS: BP_SYST 193
[~2018-02-04 07:23] MED LIST changes: +METO-290 PO
[2018-02-04] MEDS ORDERED: methylPREDNISolone SOD SUCC/PF 62.5 MG/ML VIAL IVP ONE (07:45)
[2018-02-04] MEDS ORDERED: ALBUTEROL SULFATE 0.083% 2.5 MG/3 ML VIAL.NEB IH ONE (07:45)
[2018-02-04] MEDS ORDERED: MORPHINE 4 MG/ML INJ. SYRINGE IVP ONE ×2 (07:45→08:30)
[2018-02-04] MEDS ORDERED: IPRATROPIUM BROM 0.5 MG/2.5 ML VIAL.NEB (ATROVENT) IH ONE (07:45)
[2018-02-04] MEDS ORDERED: ONDANSETRON HCL 4 MG/2 ML VIAL IVP ONE (07:45)
[2018-02-04 08:21] LABS: BASOPHILS % (AUTO) 0.3 % (0.0-2.0); EOSINOPHILS # (AUTO) 0.2 K/uL (0.0-0.4); EOSINOPHILS % (AUTO) 2.9 % (0.0-4.0); HEMATOCRIT 37.1 % (36-48); HEMOGLOBIN 11.6 g/dL (12.0-16.0); LYMPHOCYTES # (AUTO) 1.2 K/uL (1.0-5.5); LYMPHOCYTES % (AUTO) 14.6 % (20.5-51.5); MEAN CORPUSCULAR HEMOGLOBIN 31 pg (27-31); MEAN CORPUSCULAR HGB CONC 31 % (32-36); MEAN CORPUSCULAR VOLUME 98 fL (79.0-98.0); MONOCYTES # (AUTO) 0.5 K/uL (0.0-1.0); MONOCYTES % (AUTO) 5.9 % (1.7-9.3); NEUTROPHILS # (AUTO) 6.3 K/uL (1.8-7.7); NEUTROPHILS % (AUTO) 76.3 % (40.0-70.0); PLATELET COUNT (AUTO) 184 K/uL (130-430); RED BLOOD CELL COUNT(AUTO) 3.79 MIL/uL (4.2-6.2); RED CELL DISTRIBUTION WIDTH 18.5 % (9.0-15.0); WHITE BLOOD COUNT (AUTO) 8.2 K/uL (4.8-10.8)
[2018-02-04 08:22] LABS: CALCIUM 9.1 mg/dL (8.4-11.0); CREATININE 4.57 mg/dL (0.55-1.30); POTASSIUM 5.1 mmol/L (3.5-5.1)
[2018-02-04 08:24] LABS: INR 1.2 (0.8-1.2); PROTHROMBIN TIME 12.3 SECS (9.5-12.5)
[2018-02-04 08:27] LABS: ALBUMIN 3.7 g/dL (3.4-4.8); TOTAL BILIRUBIN 0.8 mg/dL (0.0-1.0)
[2018-02-04] MEDS ORDERED: DIPHENHYDRAMINE INJ 50 MG/ML VIAL IVP ONE (08:30)
[2018-02-04] MEDS ORDERED: PHE25 PO (09:00)
[2018-02-04] MEDS ORDERED: ONDANSETRON HCL 4 MG/2 ML VIAL IVP PRN (10:00)
[2018-02-04] MEDS ORDERED: INSULIN REGULAR, HUMAN 10 UNITS/0.1 ML INJ IVP ONE (10:00)
[2018-02-04 10:29] VITALS: BP_SYST 170
[2018-02-04] MEDS ORDERED: hydrALAZINE HCL 20 MG/ML VIAL IVP PRN (10:45)
[2018-02-04] MEDS ORDERED: NIFEDIPINE 60 MG TABLET.SA (PROCARDIA XL 60 MG) PO ONE (11:00)
[2018-02-04] MEDS: HYDROmorphone 1 MG INJ. 1 MG/ML AMPUL IVP PRN ×3 (11:25→20:20)
[2018-02-04] MEDS: INSULIN REGULAR, HUMAN 100 UNITS/ML, 10 ML VIAL (novoLIN R) SUBCUT PRN ×3 (11:35→20:25)
[2018-02-04] MEDS: NORMAL SALINE 5 ML DISP.SYRIN IVF SCH ×2 (13:29→22:30)
[2018-02-04 15:17] VITALS: BP_SYST 134; BP_SYST 146
[2018-02-04 16:10] VITALS: BP_SYST 126
[2018-02-04 19:48] VITALS: BP_SYST 130
[2018-02-04] MEDS ORDERED: INSULIN REGULAR, HUMAN 100 UNITS/ML, 10 ML VIAL SUBCUT ONE (21:00)
[2018-02-04] MEDS: DIPHENHYDRAMINE INJ 50 MG/ML VIAL IVP PRN (22:30)
[2018-02-05] VITALS: BP_SYST 133
[2018-02-05] MEDS: HYDROmorphone 1 MG INJ. 1 MG/ML AMPUL IVP PRN ×6 (00:23→21:27)
[2018-02-05] MEDS: LORazepam 2 MG/ML VIAL IVP PRN ×3 (02:44→23:13)
[2018-02-05] MEDS: DIPHENHYDRAMINE INJ 50 MG/ML VIAL IVP PRN ×4 (04:57→17:08)
[2018-02-05 06:18] LABS: BASOPHILS # (AUTO) 0.1 K/uL (0.0-0.2); BASOPHILS % (AUTO) 0.5 % (0.0-2.0); HEMATOCRIT 38.4 % (36-48); HEMOGLOBIN 12.2 g/dL (12.0-16.0); LYMPHOCYTES # (AUTO) 0.6 K/uL (1.0-5.5); LYMPHOCYTES % (AUTO) 5.3 % (20.5-51.5); MEAN CORPUSCULAR HEMOGLOBIN 31 pg (27-31); MEAN CORPUSCULAR HGB CONC 32 % (32-36); MEAN CORPUSCULAR VOLUME 98 fL (79.0-98.0); MONOCYTES # (AUTO) 0.3 K/uL (0.0-1.0); MONOCYTES % (AUTO) 3.1 % (1.7-9.3); NEUTROPHILS # (AUTO) 9.5 K/uL (1.8-7.7); NEUTROPHILS % (AUTO) 91.1 % (40.0-70.0); PLATELET COUNT (AUTO) 169 K/uL (130-430); RED BLOOD CELL COUNT(AUTO) 3.91 MIL/uL (4.2-6.2); RED CELL DISTRIBUTION WIDTH 18.4 % (9.0-15.0); WHITE BLOOD COUNT (AUTO) 10.5 K/uL (4.8-10.8)
[2018-02-05 06:28] LABS: ALBUMIN 3.4 g/dL (3.4-4.8); TOTAL BILIRUBIN 0.7 mg/dL (0.0-1.0)
[2018-02-05] MEDS: NORMAL SALINE 5 ML DISP.SYRIN IVF SCH ×3 (06:32→21:33)
[2018-02-05] MEDS: INSULIN REGULAR, HUMAN 100 UNITS/ML, 10 ML VIAL (novoLIN R) SUBCUT PRN ×3 (06:39→21:39)
[2018-02-05 06:47] LABS: CALCIUM 9.7 mg/dL (8.4-11.0); CREATININE 4.53 mg/dL (0.55-1.30)
[2018-02-05 07:07] LABS: POTASSIUM 6.2 mmol/L (3.5-5.1)
[2018-02-05 08:00] VITALS: BP_SYST 147
[2018-02-05] MEDS: NIFEDIPINE 60 MG TABLET.SA (PROCARDIA XL 60 MG) PO SCH (09:08)
[2018-02-05 11:21] VITALS: BP_SYST 126
[2018-02-05 17:05] VITALS: BP_SYST 96
[2018-02-05 21:25] VITALS: BP_SYST 111
[2018-02-05 23:56] VITALS: BP_SYST 120
[2018-02-06] MEDS: HYDROmorphone 1 MG INJ. 1 MG/ML AMPUL IVP PRN ×6 (01:54→23:28)
[2018-02-06] MEDS: LORazepam 2 MG/ML VIAL IVP PRN ×2 (04:18→20:34)
[2018-02-06] MEDS: INSULIN REGULAR, HUMAN 100 UNITS/ML, 10 ML VIAL (novoLIN R) SUBCUT PRN ×4 (06:08→20:42)
[2018-02-06] MEDS: NORMAL SALINE 5 ML DISP.SYRIN IVF SCH ×3 (06:17→21:00)
[2018-02-06 08:00] VITALS: BP_SYST 131
[2018-02-06] MEDS ORDERED: COMMUNICATION ORDER XX ONE (08:00)
[2018-02-06] MEDS: NIFEDIPINE 60 MG TABLET.SA (PROCARDIA XL 60 MG) PO SCH (11:15)
[2018-02-06 12:02] VITALS: BP_SYST 131
[2018-02-06 16:02] VITALS: BP_SYST 137
[2018-02-06 19:15] VITALS: BP_SYST 132
[2018-02-06 23:02] VITALS: BP_SYST 139
[2018-02-06] MEDS: DIPHENHYDRAMINE INJ 50 MG/ML VIAL IVP PRN (23:27)
[2018-02-07] MEDS: LORazepam 2 MG/ML VIAL IVP PRN ×3 (01:10→14:51)
[2018-02-07] MEDS: DIPHENHYDRAMINE INJ 50 MG/ML VIAL IVP PRN ×4 (05:06→17:09)
[2018-02-07] MEDS: HYDROmorphone 1 MG INJ. 1 MG/ML AMPUL IVP PRN ×5 (05:12→21:42)
[2018-02-07] MEDS: NORMAL SALINE 5 ML DISP.SYRIN IVF SCH ×3 (05:16→21:41)
[2018-02-07 08:00] VITALS: BP_SYST 147
[2018-02-07] MEDS: NIFEDIPINE 60 MG TABLET.SA (PROCARDIA XL 60 MG) PO SCH (09:00)
[2018-02-07] MEDS: INSULIN REGULAR, HUMAN 100 UNITS/ML, 10 ML VIAL (novoLIN R) SUBCUT PRN (12:08)
[2018-02-07 12:54] VITALS: BP_SYST 152
[2018-02-07] MEDS ORDERED: ALBUMIN HUMAN 25% 50 ML IV ONE (13:45)
[2018-02-07 16:53] VITALS: BP_SYST 145
[2018-02-07 21:46] VITALS: BP_SYST 170
[2018-02-08] MEDS: HYDROmorphone 1 MG INJ. 1 MG/ML AMPUL IVP PRN ×6 (05:26→22:19)
[2018-02-08] MEDS: DIPHENHYDRAMINE INJ 50 MG/ML VIAL IVP PRN ×5 (06:22→22:15)
[2018-02-08] MEDS: NORMAL SALINE 5 ML DISP.SYRIN IVF SCH ×3 (06:23→22:22)
[2018-02-08 07:12] LABS: BASOPHILS % (AUTO) 0.5 % (0.0-2.0); EOSINOPHILS # (AUTO) 0.2 K/uL (0.0-0.4); EOSINOPHILS % (AUTO) 3.3 % (0.0-4.0); HEMATOCRIT 39.1 % (36-48); HEMOGLOBIN 12.7 g/dL (12.0-16.0); LYMPHOCYTES # (AUTO) 1.5 K/uL (1.0-5.5); LYMPHOCYTES % (AUTO) 21.6 % (20.5-51.5); MEAN CORPUSCULAR HEMOGLOBIN 31 pg (27-31); MEAN CORPUSCULAR HGB CONC 32 % (32-36); MEAN CORPUSCULAR VOLUME 96 fL (79.0-98.0); MONOCYTES # (AUTO) 0.6 K/uL (0.0-1.0); MONOCYTES % (AUTO) 8.1 % (1.7-9.3); NEUTROPHILS # (AUTO) 4.8 K/uL (1.8-7.7); NEUTROPHILS % (AUTO) 66.5 % (40.0-70.0); PLATELET COUNT (AUTO) 176 K/uL (130-430); RED BLOOD CELL COUNT(AUTO) 4.06 MIL/uL (4.2-6.2); RED CELL DISTRIBUTION WIDTH 18.4 % (9.0-15.0); WHITE BLOOD COUNT (AUTO) 7.1 K/uL (4.8-10.8)
[2018-02-08 07:13] LABS: ALBUMIN 3.2 g/dL (3.4-4.8); CALCIUM 9.2 mg/dL (8.4-11.0); CREATININE 4.71 mg/dL (0.55-1.30); POTASSIUM 5.1 mmol/L (3.5-5.1); TOTAL BILIRUBIN 0.7 mg/dL (0.0-1.0)
[2018-02-08] MEDS: NIFEDIPINE 60 MG TABLET.SA (PROCARDIA XL 60 MG) PO SCH (08:51)
[2018-02-08] MEDS: LORazepam 2 MG/ML VIAL IVP PRN ×2 (09:15→17:28)
[2018-02-08 09:18] VITALS: BP_SYST 183
[2018-02-08 10:42] VITALS: BP_SYST 164
[2018-02-08] MEDS: INSULIN REGULAR, HUMAN 100 UNITS/ML, 10 ML VIAL (novoLIN R) SUBCUT PRN ×3 (11:21→20:50)
[2018-02-08 12:22] VITALS: BP_SYST 154
[2018-02-08 16:00] VITALS: BP_SYST 182
[2018-02-08 18:43] VITALS: BP_SYST 115
[2018-02-08 20:00] VITALS: BP_SYST 128
[2018-02-09 00:52] VITALS: BP_SYST 137
[2018-02-09] MEDS: HYDROmorphone 1 MG INJ. 1 MG/ML AMPUL IVP PRN ×6 (02:44→23:53)
[2018-02-09] MEDS: LORazepam 2 MG/ML VIAL IVP PRN ×3 (04:24→21:30)
[2018-02-09] MEDS: DIPHENHYDRAMINE INJ 50 MG/ML VIAL IVP PRN ×5 (06:36→23:51)
[2018-02-09] MEDS: INSULIN REGULAR, HUMAN 100 UNITS/ML, 10 ML VIAL (novoLIN R) SUBCUT PRN ×3 (06:42→21:22)
[2018-02-09] MEDS: NORMAL SALINE 5 ML DISP.SYRIN IVF SCH ×3 (06:42→21:34)
[2018-02-09 08:00] VITALS: BP_SYST 150
[2018-02-09] MEDS: NIFEDIPINE 60 MG TABLET.SA (PROCARDIA XL 60 MG) PO SCH (11:21)
[2018-02-09 11:28] VITALS: BP_SYST 154
[2018-02-09 12:34] VITALS: BP_SYST 153
[2018-02-09 16:40] VITALS: BP_SYST 134
[2018-02-09 20:00] VITALS: BP_SYST 133
[2018-02-10 00:17] VITALS: BP_SYST 143
[2018-02-10] MEDS: LORazepam 2 MG/ML VIAL IVP PRN (02:38)
[2018-02-10] MEDS: DIPHENHYDRAMINE INJ 50 MG/ML VIAL IVP PRN (04:09)
[2018-02-10] MEDS: HYDROmorphone 1 MG INJ. 1 MG/ML AMPUL IVP PRN ×5 (04:10→17:42)
[2018-02-10] MEDS: NORMAL SALINE 5 ML DISP.SYRIN IVF SCH ×2 (06:45→14:46)
[2018-02-10] MEDS: INSULIN REGULAR, HUMAN 100 UNITS/ML, 10 ML VIAL (novoLIN R) SUBCUT PRN ×2 (06:46→11:36)
[2018-02-10 08:07] VITALS: BP_SYST 133
[2018-02-10] MEDS: NIFEDIPINE 60 MG TABLET.SA (PROCARDIA XL 60 MG) PO SCH (08:15)
[2018-02-10 12:14] VITALS: BP_SYST 149
[2018-02-10 16:13] VITALS: BP_SYST 132
[2018-02-10 18:06] VITALS: BP_SYST 128
[2018-02-13] MEDS ORDERED: NIFE20CA PO (01:14)
[2018-02-13] MEDS ORDERED: CARV12.548 PO (01:14)
[2018-02-13] MEDS ORDERED: HYDR100T25 PO (01:14)
[2018-02-13] MEDS ORDERED: PATI8.4P PO (01:14)
[2018-02-13] MEDS ORDERED: INSU100V11 SQ (01:14)
== END 2018-02-10 18:44 | disposition home health service (06) | DRG 291 ==
LOC: SED 07:23 → SMU 09:55
PROVIDERS: ADMIT Internal Medicine Nephrology; ATTEND Internal Medicine Nephrology
PROC: 5A1D70Z Performance of Urinary Filtration, Intermittent, Less than 6 Hours Per Day (ICD-10-PCS; principal; 2018-02-04)
PROC: 5A1D70Z Performance of Urinary Filtration, Intermittent, Less than 6 Hours Per Day (ICD-10-PCS; 2018-02-05)
PROC: 5A1D70Z Performance of Urinary Filtration, Intermittent, Less than 6 Hours Per Day (ICD-10-PCS; 2018-02-07)
PROC: 0W9G3ZZ Drainage of Peritoneal Cavity, Percutaneous Approach (ICD-10-PCS; 2018-02-07)
PROC: 5A1D70Z Performance of Urinary Filtration, Intermittent, Less than 6 Hours Per Day (ICD-10-PCS; 2018-02-09)
DX: I13.2 Hypertensive heart and chronic kidney disease with heart failure and with stage 5 chronic kidney disease, or end stage renal disease (principal); N18.6 End stage renal disease; Q87.81 Alport syndrome; R18.8 Other ascites; E10.22 Type 1 diabetes mellitus with diabetic chronic kidney disease; D63.1 Anemia in chronic kidney disease; K74.60 Unspecified cirrhosis of liver; L29.9 Pruritus, unspecified; G89.4 Chronic pain syndrome; I50.9 Heart failure, unspecified; Z88.8 Allergy status to other drugs, medicaments and biological substances; Z99.2 Dependence on renal dialysis; Z79.4 Long term (current) use of insulin; Z90.49 Acquired absence of other specified parts of digestive tract; Z91.040 Latex allergy status; Z79.899 Other long term (current) drug therapy
CPT/HCPCS: 36415; 49083; 71045; 76700-TC; 80053; 82042; 82150-TC; 82550-TC; 82962; 83605; 83690-TC; 83880; 84157-TC; 84484; 85025; 85610-TC; 85730-TC; 87040-TC; 87081; 90935; 90937; 93005; 94640; 96374; 96375; 99285; C1729; J0360; J1170; J1200; J1815; J2060; J2270; J2405; J2930; J7030; J7613; P9046

== ENCOUNTER 2018-02-19 13:21 | Inpatient (IN) | payer OTHER ==
[~2018-02-19] VITALS: Ht 170.2 cm; Wt 72.1 kg
[~2018-02-19 13:21] MED LIST changes: +CARV12.548 PO; -CARV3.1246 PO; -CAT.2 PO; +INSU100V11 SQ; -METO-290 PO; +NIFE20CA PO; -ONDA4TAB5 PO; +PATI8.4P PO
[2018-02-19 13:31] VITALS: BP_SYST 201
--- NOTE | 2018-02-19 13:50 | NUR ---
placed in bed 2, dr gary at bedside to see patient
[2018-02-19] MEDS ORDERED: FUROSEMIDE 40 MG/4 ML VIAL IVP ONE (14:00)
[2018-02-19] MEDS ORDERED: ALBUTEROL SULFATE 0.083% 2.5 MG/3 ML VIAL.NEB IH ONE (14:00)
[2018-02-19] MEDS ORDERED: IPRATROPIUM BROM 0.5 MG/2.5 ML VIAL.NEB (ATROVENT) IH ONE (14:00)
[2018-02-19] MEDS ORDERED: cloNIDine HCL 0.1 MG TABLET PO ONE (14:00)
[2018-02-19] MEDS ORDERED: methylPREDNISolone SOD SUCC/PF 62.5 MG/ML VIAL IVP ONE (14:00)
--- NOTE | 2018-02-19 14:05 | NUR ---
Arcadio johnson in EDM - 02/19/18 at 1417 by [email or web address] placed in hallway 1. pt states he is here for finger suture removals. giuliano florez, at bedside to see patient.
--- NOTE | 2018-02-19 14:17 | NUR ---
chio presents to ed stating home health rn had her come in for hypertension instead of taking her home clonidine.
--- NOTE | 2018-02-19 14:20 | NUR ---
bedside portable xray performed
[2018-02-19] MEDS ORDERED: MORPHINE 4 MG/ML INJ. SYRINGE IVP ONE ×2 (14:45→18:15)
--- NOTE | 2018-02-19 14:50 | NUR ---
iv placed to left ac, 20 g. patient tolerated well.
[2018-02-19 15:51] LABS: BASOPHILS # (AUTO) 0.1 K/uL (0.0-0.2); BASOPHILS % (AUTO) 0.6 % (0.0-2.0); EOSINOPHILS # (AUTO) 0.2 K/uL (0.0-0.4); EOSINOPHILS % (AUTO) 2.3 % (0.0-4.0); HEMATOCRIT 36.2 % (36-48); HEMOGLOBIN 11.6 g/dL (12.0-16.0); LYMPHOCYTES % (AUTO) 10.5 % (20.5-51.5); MEAN CORPUSCULAR HEMOGLOBIN 31 pg (27-31); MEAN CORPUSCULAR HGB CONC 32 % (32-36); MEAN CORPUSCULAR VOLUME 97 fL (79.0-98.0); MONOCYTES # (AUTO) 0.4 K/uL (0.0-1.0); MONOCYTES % (AUTO) 4.5 % (1.7-9.3); NEUTROPHILS # (AUTO) 7.4 K/uL (1.8-7.7); NEUTROPHILS % (AUTO) 82.1 % (40.0-70.0); PLATELET COUNT (AUTO) 167 K/uL (130-430); RED BLOOD CELL COUNT(AUTO) 3.72 MIL/uL (4.2-6.2); RED CELL DISTRIBUTION WIDTH 17.2 % (9.0-15.0); WHITE BLOOD COUNT (AUTO) 9.1 K/uL (4.8-10.8)
[2018-02-19 15:56] LABS: CALCIUM 9.2 mg/dL (8.4-11.0); CREATININE 6.19 mg/dL (0.55-1.30)
[2018-02-19 15:59] LABS: POTASSIUM 6.3 mmol/L (3.5-5.1)
[2018-02-19 16:02] LABS: ALBUMIN 3.3 g/dL (3.4-4.8); INR 1.3 (0.8-1.2); PROTHROMBIN TIME 12.6 SECS (9.5-12.5); TOTAL BILIRUBIN 0.8 mg/dL (0.0-1.0)
[2018-02-19] MEDS ORDERED: CALCIUM GLUCONATE 1 GM/10 ML VIAL IVP ONE (16:30)
[2018-02-19] MEDS ORDERED: SODIUM POLYSTYRENE SULFONATE 15 GM/60 ML UDBTL PO ONE (16:30)
[2018-02-19] MEDS ORDERED: SODIUM BICARBONATE 8.4% JECT 50 MEQ/50 ML SYRINGE IVP ONE (16:30)
[2018-02-19] MEDS ORDERED: INSULIN REGULAR, HUMAN 10 UNITS/0.1 ML INJ IVP ONE (16:30)
[2018-02-19] MEDS ORDERED: DEXTROSE 50% JECT 50 ML DISP.SYRIN IVP ONE (16:30)
[2018-02-19] MEDS ORDERED: SODIUM POLYSTYRENE SULFONATE 15 GM/60 ML UDBTL RC ONE (16:30)
--- NOTE | 2018-02-19 16:50 | NUR ---
hyperkalemia IV protocol administered. tolerated well.
--- NOTE | 2018-02-19 17:15 | NUR ---
Medication reconciliation completed with information provided by patient. Any prior medication reconciliation on file was reviewed and corrected.
[2018-02-19] MEDS ORDERED: ONDANSETRON HCL 4 MG/2 ML VIAL IVP ONE (17:30)
--- NOTE | 2018-02-19 17:38 | NUR ---
requesting more pain medication
[2018-02-19] MEDS ORDERED: hydrALAZINE HCL 20 MG/ML VIAL IVP PRN (17:45)
[2018-02-19] MEDS ORDERED: ONDANSETRON HCL 4 MG/2 ML VIAL IVP PRN ×2 (17:45→18:30)
[2018-02-19] MEDS ORDERED: HYDROcodone/ACETAMIN 5-325 MG TAB (NORCO/ VICODIN) PO PRN (17:45)
[2018-02-19] MEDS ORDERED: INSULIN ASPART 100 UNITS/ML, 10 ML VIAL (NovoLOG) SUBCUT PRN (17:45)
--- NOTE | 2018-02-19 18:02 | NUR ---
Patient will be admitted to care of Dr Meaghan Funez. Admitted to tele unit, to room 119. Belongings list completed. Summary report printed. Report given at bedside.
--- NOTE | 2018-02-19 18:38 | NUR ---
ADMIT NOTE Received pt from ER to the floor with a diagnosis of HYPERTENSION. Admission process initiated. patient oriented to pain management, safety and call light-teach back done.
[2018-02-19 18:44] VITALS: BP_SYST 175
[2018-02-19 19:00] VITALS: BP_SYST 185
[2018-02-19 20:00] VITALS: BP_SYST 185
[2018-02-19] MEDS: HYDROcodone/ACETAMIN 5-325 MG TAB (NORCO/ VICODIN) PO PRN (20:19)
[2018-02-19] MEDS: HEPARIN SODIUM,PORCINE 5000 UNITS/ML VIAL SUBCUT SCH ×2 (20:28→20:35)
[2018-02-19] MEDS: INSULIN ASPART 100 UNITS/ML, 10 ML VIAL (NovoLOG) SUBCUT PRN (20:30)
[2018-02-19] MEDS ORDERED: HEPARIN SODIUM,PORCINE 5000 UNITS/ML VIAL SUBCUT SCH (21:00)
[2018-02-20] MEDS: HYDROcodone/ACETAMIN 5-325 MG TAB (NORCO/ VICODIN) PO PRN ×3 (00:09→08:37)
[2018-02-20] MEDS: hydrALAZINE HCL 20 MG/ML VIAL IVP PRN ×2 (00:39→08:39)
[2018-02-20 01:22] VITALS: BP_SYST 140
[2018-02-20] MEDS: INSULIN ASPART 100 UNITS/ML, 10 ML VIAL (NovoLOG) SUBCUT PRN (05:53)
--- NOTE | 2018-02-20 06:27 | NUR ---
PAGING PREPARED FOODS ASSOCIATE Paging Dr. Meaghan Funez (commercial pest control representative for Dr. Palmer) for orders as requested by primary nurse, AMANDA Youngblood. Spoke to Lynne from exchange. Will wait for MD to call back.
--- NOTE | 2018-02-20 06:55 | NUR ---
pt.wqs received via the er-dept.pt.presented elevated b/p:htn crisis.pt.presents k+6.3.pt.was ordered to receive the adminstration of kayexalate:50-60 gms;2 orders:pt.consumed 15gms;pt.refuse to drink additional doses.pt.was ordered dialysis:pt.submitted to dialysis session:4litres removed.b/p was elevated upon admission to unit.b/p remained elevated w/in the hemo dialysis session. hemo dialysis consent printed;i witnessed the pt.sign the hemo dialysis consent.i collected the mrsa;nares sample.pt.had c/o pain upon admission.;emerald was paged. apprised of the pt's requests for pain medication:in addtion to norco:5/325mg po 1tab ordered di not provided additional order:pain medication.i apprised the pt.the pt.reacted in an aggressive;dramatic manner. pt.began to scrtch self;cutting skin. was paged additional time;later w/in the shift. did not provide an additional order:pain medication: stated the pt.is to receive norco:5/325mg po 1 tab solely.w/in the shift.i have administered norco;x2:upo assessment:pt.stated the norco:is somewhat effective.w/in the shift.pt,.was very emotional;crying re;pain: has stated earlir not to call her again re;pain medciation.i had apprised the pt.of the dr's order.i apprised efrain;chg/nsg.efrain spoke w/the pt.re;nsg options.i apprised leonard;night housekeeping laundry worker of the pt's status.the pt.presents diabetic hx;i have aassesd the blood glucose;upon admission:205mg/dl;i administered 4-units novolog.this am the blood glucose:glucometer:>600mg/dl. paged;i administered 12-units novolog insulin per sliding scale protocol. has not returned the page.pt.had requested to take a shower.i conferred w/efrain;natasha/burt.efrain stated the pt is a telemetry pt.and cannot shower unless provided the order.pt.was absent from room and was located in the shower room shower;nsg was alerted to pt's absence from the room:pt.had removed the telemetry unit.
--- NOTE | 2018-02-20 07:20 | NUR ---
Opening Note patient ambulating around unit at this time, stated legs hurt but it helps her to walk, educated her on safety precautions, verbalized understanding, safety precautions remain in place, will continue to monitor
--- NOTE | 2018-02-20 07:30 | NUR ---
returned the page.i apprised of the elevated blood glucose value:>600mg/dl. ordered 10 units levemir sq x1. and levemir;25-units sq qhs.
[2018-02-20] MEDS: HEPARIN SODIUM,PORCINE 5000 UNITS/ML VIAL SUBCUT SCH (08:38)
--- NOTE | 2018-02-20 08:39 | NUR ---
Medication Administration patient educated regarding meds, verbalized understanding, refused heparin because she stated she ambulates, educated her on potential side effects of not taking meds, verbalized understanding, still refused, also administered apresoline per protocol, IV site remains patent, educated her on pain management and administered meds per protocol, safety precautions remain in place, bedside table and call light left within reach, will continue to monitor
[2018-02-20 08:45] VITALS: BP_SYST 172
--- NOTE | 2018-02-20 09:10 | NUR ---
Called Dr. Palmer's Office Per Patient Request office stated Dr. Funez is on the case today, informed patient, patient stated she does not want Dr. Funez to be her MD and stated may leave AMA
--- NOTE | 2018-02-20 10:40 | NUR ---
AMA: Patient does not wish to proceed with medical care recommended by Dr. Funez who is covering for Dr. Palmer. Patient given information related to possible complications, up to and including , which could occur as a result of leaving hospital at this time. Patient verbalizes understanding of risks involved leaving against medical advice. Patient has signed AMA form.
--- NOTE | 2018-02-20 10:51 | NUR ---
Dr. Funez Made aware of NICKI [place] at station and verbalized understanding
== END 2018-02-20 10:40 | disposition left against medical advice (07) | DRG 640 ==
LOC: SED 13:21 → STU 18:00
PROVIDERS: ADMIT Internal Medicine; ATTEND Internal Medicine
PROC: 5A1D70Z Performance of Urinary Filtration, Intermittent, Less than 6 Hours Per Day (ICD-10-PCS; principal; 2018-02-19)
DX: E87.5 Hyperkalemia (principal); N18.6 End stage renal disease; I13.2 Hypertensive heart and chronic kidney disease with heart failure and with stage 5 chronic kidney disease, or end stage renal disease; R18.8 Other ascites; E10.22 Type 1 diabetes mellitus with diabetic chronic kidney disease; Z53.21 Procedure and treatment not carried out due to patient leaving prior to being seen by health care provider; G89.4 Chronic pain syndrome; E10.40 Type 1 diabetes mellitus with diabetic neuropathy, unspecified; I50.9 Heart failure, unspecified; M54.9 Dorsalgia, unspecified; R10.9 Unspecified abdominal pain; Z88.8 Allergy status to other drugs, medicaments and biological substances; Z91.040 Latex allergy status; Z79.899 Other long term (current) drug therapy; Z91.19 Patient's noncompliance with other medical treatment and regimen; Z90.49 Acquired absence of other specified parts of digestive tract; D63.1 Anemia in chronic kidney disease
CPT/HCPCS: 36415; 71045; 80053; 82150-TC; 82550-TC; 82962; 83690-TC; 84484; 85025; 85610-TC; 85730-TC; 87081; 90935; 93005; 94640; 96374; 96375; 99285; G0378; J0360; J0610; J1644; J1815; J1940; J2270; J2405; J2930; J7030; J7613

== ENCOUNTER 2018-03-05 21:03 | Emergency (ER) | payer OTHER ==
[~2018-03-05] VITALS: Ht 170.2 cm; Wt 65.8 kg
[2018-03-05 21:16] VITALS: BP_SYST 169
[2018-03-05] MEDS ORDERED: ONDANSETRON HCL 4 MG/2 ML VIAL IVP ONE (21:45)
[2018-03-05] MEDS ORDERED: ACETAMINOPHEN 500 MG TABLET PO ONE (21:45)
[2018-03-05] MEDS ORDERED: MORPHINE 4 MG/ML INJ. SYRINGE IVP ONE (21:45)
[2018-03-05 22:06] LABS: BASOPHILS % (AUTO) 0.3 % (0.0-2.0); EOSINOPHILS # (AUTO) 0.2 K/uL (0.0-0.4); EOSINOPHILS % (AUTO) 2.5 % (0.0-4.0); HEMOGLOBIN 12.4 g/dL (12.0-16.0); LYMPHOCYTES # (AUTO) 1.2 K/uL (1.0-5.5); LYMPHOCYTES % (AUTO) 13.6 % (20.5-51.5); MEAN CORPUSCULAR HEMOGLOBIN 31 pg (27-31); MEAN CORPUSCULAR HGB CONC 32 % (32-36); MEAN CORPUSCULAR VOLUME 98 fL (79.0-98.0); MONOCYTES # (AUTO) 0.7 K/uL (0.0-1.0); MONOCYTES % (AUTO) 8.5 % (1.7-9.3); NEUTROPHILS # (AUTO) 6.6 K/uL (1.8-7.7); NEUTROPHILS % (AUTO) 75.1 % (40.0-70.0); PLATELET COUNT (AUTO) 116 K/uL (130-430); RED BLOOD CELL COUNT(AUTO) 3.97 MIL/uL (4.2-6.2); RED CELL DISTRIBUTION WIDTH 18.8 % (9.0-15.0); WHITE BLOOD COUNT (AUTO) 8.7 K/uL (4.8-10.8)
[2018-03-05 22:17] LABS: CALCIUM 10.2 mg/dL (8.4-11.0); CREATININE 4.78 mg/dL (0.55-1.30)
[2018-03-05 22:19] LABS: POTASSIUM 5.9 mmol/L (3.5-5.1)
[2018-03-05 22:22] LABS: ALBUMIN 3.9 g/dL (3.4-4.8); TOTAL BILIRUBIN 1.1 mg/dL (0.0-1.0)
[2018-03-05] MEDS ORDERED: ALBUTEROL SULFATE 0.083% 2.5 MG/3 ML VIAL.NEB INH ONE (22:30)
[2018-03-05] MEDS ORDERED: SODIUM POLYSTYRENE SULFONATE 15 GM/60 ML UDBTL PO ONE (22:30)
[2018-03-05] MEDS ORDERED: DEXTROSE 50% JECT 50 ML DISP.SYRIN IVP ONE (22:30)
[2018-03-05] MEDS ORDERED: INSULIN REGULAR, HUMAN 10 UNITS/0.1 ML INJ IVP ONE (22:30)
[2018-03-05] MEDS ORDERED: hydrALAZINE HCL 20 MG/ML VIAL ONE (23:11)
[2018-03-05] MEDS ORDERED: hydrALAZINE HCL 20 MG/ML VIAL IVP ONE (23:15)
[2018-03-05 23:28] LABS: CALCIUM 9.7 mg/dL (8.4-11.0); CREATININE 5.03 mg/dL (0.55-1.30); POTASSIUM 5.1 mmol/L (3.5-5.1)
[2018-03-05 23:51] LABS: INR 1.2 (0.8-1.2); PROTHROMBIN TIME 11.9 SECS (9.5-12.5)
[2018-03-06 01:50] VITALS: BP_SYST 165
== END 2018-03-06 01:50 | disposition home or self-care (01) ==
LOC: SED 21:03
DX: E11.43 Type 2 diabetes mellitus with diabetic autonomic (poly)neuropathy (principal); K31.84 Gastroparesis; R11.2 Nausea with vomiting, unspecified; E87.5 Hyperkalemia; E11.22 Type 2 diabetes mellitus with diabetic chronic kidney disease; I13.2 Hypertensive heart and chronic kidney disease with heart failure and with stage 5 chronic kidney disease, or end stage renal disease; I50.20 Unspecified systolic (congestive) heart failure; N18.6 End stage renal disease; Z99.2 Dependence on renal dialysis; Z86.2 Personal history of diseases of the blood and blood-forming organs and certain disorders involving the immune mechanism; Z90.49 Acquired absence of other specified parts of digestive tract; Z91.040 Latex allergy status; Z88.8 Allergy status to other drugs, medicaments and biological substances; Z79.899 Other long term (current) drug therapy
CPT/HCPCS: 36415; 71045; 80048; 80053; 83605; 84484; 85025; 85610; 85730; 86710; 87040; 93005; 94640; 96374; 96375; 99284; J0360; J1815; J2270; J2405; J7613

== ENCOUNTER 2018-03-16 07:10 | Emergency (ER) | payer OTHER ==
[~2018-03-16] VITALS: Ht 170.2 cm; Wt 63.5 kg
[2018-03-16 07:19] VITALS: BP_SYST 191
[2018-03-16] MEDS ORDERED: fentaNYL CITRATE/PF 100 MCG/2 ML AMP IVP ONE (08:00)
[2018-03-16] MEDS ORDERED: PROCHLORPERAZINE EDISYLATE 10 MG/2 ML VIAL IVP ONE (08:00)
[2018-03-16 08:13] LABS: BASOPHILS % (AUTO) 0.4 % (0.0-2.0); EOSINOPHILS # (AUTO) 0.4 K/uL (0.0-0.4); EOSINOPHILS % (AUTO) 5.1 % (0.0-4.0); HEMATOCRIT 39.2 % (36-48); HEMOGLOBIN 12.6 g/dL (12.0-16.0); LYMPHOCYTES # (AUTO) 1.5 K/uL (1.0-5.5); LYMPHOCYTES % (AUTO) 19.2 % (20.5-51.5); MEAN CORPUSCULAR HEMOGLOBIN 32 pg (27-31); MEAN CORPUSCULAR HGB CONC 32 % (32-36); MEAN CORPUSCULAR VOLUME 98 fL (79.0-98.0); MONOCYTES # (AUTO) 0.5 K/uL (0.0-1.0); MONOCYTES % (AUTO) 6.7 % (1.7-9.3); NEUTROPHILS # (AUTO) 5.5 K/uL (1.8-7.7); NEUTROPHILS % (AUTO) 68.6 % (40.0-70.0); PLATELET COUNT (AUTO) 229 K/uL (130-430); RED BLOOD CELL COUNT(AUTO) 4.02 MIL/uL (4.2-6.2); RED CELL DISTRIBUTION WIDTH 18.7 % (9.0-15.0); WHITE BLOOD COUNT (AUTO) 7.9 K/uL (4.8-10.8)
[2018-03-16] MEDS ORDERED: hydrALAZINE HCL 20 MG/ML VIAL IVP ONE (08:15)
[2018-03-16 08:27] LABS: CALCIUM 9.6 mg/dL (8.4-11.0); CREATININE 5.62 mg/dL (0.55-1.30); POTASSIUM 4.1 mmol/L (3.5-5.1)
[2018-03-16 08:31] LABS: TOTAL BILIRUBIN 0.8 mg/dL (0.0-1.0)
[2018-03-16 09:33] VITALS: BP_SYST 144
== END 2018-03-16 09:29 | disposition home or self-care (01) ==
LOC: SED 07:10
DX: J06.9 Acute upper respiratory infection, unspecified (principal); B97.89 Other viral agents as the cause of diseases classified elsewhere; G89.29 Other chronic pain; I13.0 Hypertensive heart and chronic kidney disease with heart failure and stage 1 through stage 4 chronic kidney disease, or unspecified chronic kidney disease; E11.22 Type 2 diabetes mellitus with diabetic chronic kidney disease; N18.9 Chronic kidney disease, unspecified; I50.9 Heart failure, unspecified; Z86.2 Personal history of diseases of the blood and blood-forming organs and certain disorders involving the immune mechanism; Z91.040 Latex allergy status; Z88.8 Allergy status to other drugs, medicaments and biological substances; Z79.899 Other long term (current) drug therapy
CPT/HCPCS: 36415; 71045; 80053; 83605; 84484; 85025; 93005; 96374; 96375; 99284; J0360; J0780; J3010

== ENCOUNTER 2018-04-04 04:17 | Emergency (ER) | payer OTHER ==
[~2018-04-04] VITALS: Ht 170.2 cm; Wt 63.5 kg
[2018-04-04 04:30] VITALS: BP_SYST 167
[2018-04-04] MEDS ORDERED: KETOROLAC TROMETHAMINE 60 MG/2 ML VIAL IM ONE (04:30)
[2018-04-04] MEDS ORDERED: ONDANSETRON 4 MG ODT TAB PO ONE (04:30)
--- NOTE | 2018-04-04 04:30 | NUR ---
Patient to ER bed 7 to gown for evaluation. Side rails up.
--- NOTE | 2018-04-04 04:32 | NUR ---
Patient A/O x 4, presented to ED c/o epigastric ABD pain 10/, x 2 days. Pt also c/o nausea and had no relied after taking Reglan. Pt VSS. Pt denies fever. Pt denies chest pain. No SOB or distress noted. Will continue to monitor.
--- NOTE | 2018-04-04 04:50 | NUR ---
ER Dr. Verduzco at bedside examining patient.
--- NOTE | 2018-04-04 04:52 | NUR ---
#20 gauge angiocath placed to LAC. Use of asceptic technique. Opsite placed over site. Blood return noted. Flushed with 10 cc of normal saline. No evidence of infiltration noted. Patient tolerated well.
[2018-04-04] MEDS ORDERED: METOCLOPRAMIDE HCL 10 MG/2 ML VIAL IVP ONE (05:00)
[2018-04-04] MEDS ORDERED: DIPHENHYDRAMINE INJ 50 MG/ML VIAL IVP ONE (05:00)
[2018-04-04] MEDS ORDERED: MORPHINE 4 MG/ML INJ. SYRINGE IVP ONE ×2 (05:00→06:30)
[2018-04-04] MEDS ORDERED: NACL 0.9% 1,000 ML IV ONE (05:15)
--- NOTE | 2018-04-04 05:20 | NUR ---
Patient resting quietly in bed, pt VSS. IVF infusing well. No SOB or distress noted. Will continue to monitor.
[2018-04-04 05:54] LABS: BASOPHILS % (AUTO) 0.4 % (0.0-2.0); EOSINOPHILS # (AUTO) 0.3 K/uL (0.0-0.4); EOSINOPHILS % (AUTO) 4.2 % (0.0-4.0); HEMATOCRIT 34.8 % (36-48); HEMOGLOBIN 11.6 g/dL (12.0-16.0); LYMPHOCYTES # (AUTO) 1.1 K/uL (1.0-5.5); LYMPHOCYTES % (AUTO) 18.2 % (20.5-51.5); MEAN CORPUSCULAR HEMOGLOBIN 32 pg (27-31); MEAN CORPUSCULAR HGB CONC 33 % (32-36); MEAN CORPUSCULAR VOLUME 97 fL (79.0-98.0); MONOCYTES # (AUTO) 0.5 K/uL (0.0-1.0); NEUTROPHILS # (AUTO) 4.1 K/uL (1.8-7.7); NEUTROPHILS % (AUTO) 69.2 % (40.0-70.0); PLATELET COUNT (AUTO) 146 K/uL (130-430); RED BLOOD CELL COUNT(AUTO) 3.59 MIL/uL (4.2-6.2); RED CELL DISTRIBUTION WIDTH 17.6 % (9.0-15.0)
[2018-04-04 06:09] LABS: CALCIUM 8.9 mg/dL (8.4-11.0); CREATININE 5.04 mg/dL (0.55-1.30); POTASSIUM 4.3 mmol/L (3.5-5.1)
[2018-04-04 06:13] LABS: ALBUMIN 3.5 g/dL (3.4-4.8); TOTAL BILIRUBIN 0.7 mg/dL (0.0-1.0)
[2018-04-04 06:57] VITALS: BP_SYST 130
--- NOTE | 2018-04-04 06:57 | NUR ---
Patient given written and verbal discharge instructions and verbalizes understanding. ER MD discussed with patient the results and treatment provided. Patient in stable condition. ID arm band removed. IV catheter removed intact and dressing applied, no active bleeding. Patient educated on pain management and to follow up with PMD. Pain Scale 2/10. Opportunity for questions provided and answered. Medication side effect fact sheet provided.
== END 2018-04-04 06:57 | disposition home or self-care (01) ==
LOC: SED 04:17
DX: R10.13 Epigastric pain (principal); R11.10 Vomiting, unspecified; I13.0 Hypertensive heart and chronic kidney disease with heart failure and stage 1 through stage 4 chronic kidney disease, or unspecified chronic kidney disease; E11.22 Type 2 diabetes mellitus with diabetic chronic kidney disease; N18.9 Chronic kidney disease, unspecified; I50.9 Heart failure, unspecified; Z99.2 Dependence on renal dialysis; Z86.2 Personal history of diseases of the blood and blood-forming organs and certain disorders involving the immune mechanism; Z90.49 Acquired absence of other specified parts of digestive tract; Z91.040 Latex allergy status; Z88.8 Allergy status to other drugs, medicaments and biological substances; Z79.899 Other long term (current) drug therapy
CPT/HCPCS: 36415; 80053; 83690; 85025; 96361; 96374; 96375; 96376; 99283; J1200; J2270; J2765; J7030; Q0162; J1885

== ENCOUNTER 2018-04-09 22:09 | Inpatient (IN) | payer OTHER ==
[~2018-04-09] VITALS: Ht 170.2 cm; Wt 69.9 kg
[2018-04-09 22:18] VITALS: BP_SYST 194
[2018-04-09] MEDS ORDERED: NACL 0.9% 1,000 ML IV ONE (22:54)
[2018-04-09] MEDS ORDERED: ONDANSETRON HCL 4 MG/2 ML VIAL IVP ONE (23:00)
[2018-04-09] MEDS ORDERED: KETOROLAC TROMETHAMINE 30 MG VIAL IVP ONE (23:00)
[2018-04-09 23:56] LABS: HEMATOCRIT 37.4 % (36-48); HEMOGLOBIN 11.9 g/dL (12.0-16.0); MEAN CORPUSCULAR HEMOGLOBIN 32 pg (27-31); MEAN CORPUSCULAR HGB CONC 32 % (32-36); MEAN CORPUSCULAR VOLUME 100 fL (79.0-98.0); PLATELET COUNT (AUTO) 178 K/uL (130-430); RED BLOOD CELL COUNT(AUTO) 3.75 MIL/uL (4.2-6.2); RED CELL DISTRIBUTION WIDTH 17.4 % (9.0-15.0); WHITE BLOOD COUNT (AUTO) 7.6 K/uL (4.8-10.8)
[2018-04-09 23:57] LABS: BASOPHILS % (AUTO) 0.4 % (0.0-2.0); EOSINOPHILS # (AUTO) 0.3 K/uL (0.0-0.4); EOSINOPHILS % (AUTO) 4.3 % (0.0-4.0); LYMPHOCYTES # (AUTO) 1.3 K/uL (1.0-5.5); LYMPHOCYTES % (AUTO) 16.7 % (20.5-51.5); MONOCYTES # (AUTO) 0.4 K/uL (0.0-1.0); MONOCYTES % (AUTO) 5.6 % (1.7-9.3); NEUTROPHILS # (AUTO) 5.6 K/uL (1.8-7.7)
[2018-04-10 00:27] LABS: ALBUMIN 3.5 g/dL (3.4-4.8); CALCIUM 9.2 mg/dL (8.4-11.0); CREATININE 5.58 mg/dL (0.55-1.30); TOTAL BILIRUBIN 0.8 mg/dL (0.0-1.0)
[2018-04-10 00:30] LABS: POTASSIUM 6.4 mmol/L (3.5-5.1)
[2018-04-10 00:42] LABS: INR 1.1 (0.8-1.2); PROTHROMBIN TIME 11.4 SECS (9.5-12.5)
[2018-04-10] MEDS ORDERED: SODIUM POLYSTYRENE SULFONATE 15 GM/60 ML UDBTL PO ONE (00:45)
[2018-04-10] MEDS ORDERED: METHOCARBAMOL 1000 MG/10 ML VIAL IVP ONE (01:00)
[2018-04-10] MEDS ORDERED: INSULIN REGULAR, HUMAN 10 UNITS/0.1 ML INJ IVP ONE (01:00)
[2018-04-10] MEDS ORDERED: METOCLOPRAMIDE HCL 10 MG TABLET PO ONE ×2 (01:00→16:15)
[2018-04-10] MEDS ORDERED: ONDANSETRON HCL 4 MG/2 ML VIAL IVP PRN (02:00)
[2018-04-10 02:29] VITALS: BP_SYST 151
[2018-04-10] MEDS ORDERED: METOCLOPRAMIDE HCL 10 MG/2 ML VIAL IVP ONE (02:45)
[2018-04-10 07:55] VITALS: BP_SYST 135
[2018-04-10] MEDS: METOCLOPRAMIDE HCL 10 MG/2 ML VIAL IVP SCH ×2 (10:27→14:46)
[2018-04-10] MEDS: PANTOPRAZOLE SODIUM 40 MG/VIAL (PROTONIX) IVP SCH ×2 (10:27→20:10)
[2018-04-10] MEDS ORDERED: HYDROcodone/ACETAMIN 5-325 MG TAB (NORCO/ VICODIN) PO PRN (12:00)
[2018-04-10] MEDS ORDERED: BISACODYL 5 MG TABLET.DR (DULCOLAX) PO PRN (12:00)
[2018-04-10] MEDS ORDERED: DEXTROSE 50% JECT 50 ML DISP.SYRIN IVP PRN (12:45)
[2018-04-10] MEDS ORDERED: INSULIN REGULAR, HUMAN 100 UNITS/ML, 10 ML VIAL (novoLIN R) SUBCUT PRN (12:45)
[2018-04-10] MEDS ORDERED: PANTOPRAZOLE SODIUM 40 MG/VIAL (PROTONIX) IVP ONE (14:00)
[2018-04-10] MEDS: MORPHINE 4 MG/ML INJ. SYRINGE IVP PRN ×2 (14:51→20:11)
[2018-04-10 17:00] VITALS: BP_SYST 150
[2018-04-10] MEDS: hydrALAZINE HCL 25 MG TABLET PO SCH ×2 (17:00→21:28)
[2018-04-10 20:00] VITALS: BP_SYST 136
[2018-04-10] MEDS: METOCLOPRAMIDE HCL 10 MG TABLET PO SCH (20:10)
[2018-04-10] MEDS: DOCUSATE SODIUM 250 MG CAPSULE PO SCH (20:10)
[2018-04-10] MEDS ORDERED: NON-FORMULARY MEDICATION (Insulin Detemir (Levemir) 25 UNIT) SQ SCH (21:00)
[2018-04-10] MEDS ORDERED: PANTOPRAZOLE SODIUM 40 MG/VIAL (PROTONIX) IVP SCH (21:00)
[2018-04-11] MEDS: MORPHINE 4 MG/ML INJ. SYRINGE IVP PRN ×6 (02:12→21:13)
[2018-04-11 02:44] VITALS: BP_SYST 125
[2018-04-11] MEDS: hydrALAZINE HCL 25 MG TABLET PO SCH ×3 (06:20→21:30)
[2018-04-11 07:28] LABS: POTASSIUM 5.6 mmol/L (3.5-5.1)
[2018-04-11 07:29] LABS: CREATININE 5.34 mg/dL (0.55-1.30)
[2018-04-11 08:00] VITALS: BP_SYST 124
[2018-04-11] MEDS ORDERED: PATIROMER CALCIUM SORBITEX 8.4 GM PO SCH (09:00)
[2018-04-11] MEDS: PANTOPRAZOLE SODIUM 40 MG/VIAL (PROTONIX) IVP SCH ×2 (09:09→21:12)
[2018-04-11] MEDS: DOCUSATE SODIUM 250 MG CAPSULE PO SCH ×2 (09:10→21:00)
[2018-04-11] MEDS: METOCLOPRAMIDE HCL 10 MG TABLET PO SCH ×2 (09:10→21:12)
[2018-04-11] MEDS: CARVEDILOL 12.5 MG TABLET (COREG) PO SCH (09:10)
[2018-04-11 09:45] LABS: WHITE BLOOD COUNT (AUTO) 5.9 K/uL (4.8-10.8)
[2018-04-11 09:46] LABS: HEMATOCRIT 36.8 % (36-48); MEAN CORPUSCULAR HEMOGLOBIN 32 pg (27-31); MEAN CORPUSCULAR HGB CONC 33 % (32-36); MEAN CORPUSCULAR VOLUME 97 fL (79.0-98.0); RED BLOOD CELL COUNT(AUTO) 3.79 MIL/uL (4.2-6.2)
[2018-04-11 09:47] LABS: BASOPHILS % (AUTO) 0.7 % (0.0-2.0); LYMPHOCYTES % (AUTO) 26.9 % (20.5-51.5); MONOCYTES % (AUTO) 7.6 % (1.7-9.3); NEUTROPHILS % (AUTO) 59.8 % (40.0-70.0); PLATELET COUNT (AUTO) 214 K/uL (130-430); RED CELL DISTRIBUTION WIDTH 17.2 % (9.0-15.0)
[2018-04-11 09:48] LABS: EOSINOPHILS # (AUTO) 0.3 K/uL (0.0-0.4); LYMPHOCYTES # (AUTO) 1.6 K/uL (1.0-5.5); MONOCYTES # (AUTO) 0.4 K/uL (0.0-1.0); NEUTROPHILS # (AUTO) 3.6 K/uL (1.8-7.7)
[2018-04-11 11:30] VITALS: BP_SYST 123
[2018-04-11] MEDS ORDERED: SODIUM POLYSTYRENE SULFONATE 15 GM/60 ML UDBTL PO ONE (13:30)
[2018-04-11 20:00] VITALS: BP_SYST 125
[2018-04-11 23:22] VITALS: BP_SYST 126
[2018-04-12] MEDS: MORPHINE 4 MG/ML INJ. SYRINGE IVP PRN ×7 (00:31→20:21)
[2018-04-12] MEDS: hydrALAZINE HCL 25 MG TABLET PO SCH ×3 (06:00→21:17)
[2018-04-12 07:30] VITALS: BP_SYST 182
[2018-04-12 07:48] LABS: CALCIUM 8.7 mg/dL (8.4-11.0); CREATININE 6.26 mg/dL (0.55-1.30)
[2018-04-12 07:49] LABS: POTASSIUM 5.9 mmol/L (3.5-5.1)
[2018-04-12] MEDS: DOCUSATE SODIUM 250 MG CAPSULE PO SCH ×3 (08:04→20:32)
[2018-04-12] MEDS: PANTOPRAZOLE SODIUM 40 MG/VIAL (PROTONIX) IVP SCH ×2 (08:04→20:12)
[2018-04-12] MEDS: METOCLOPRAMIDE HCL 10 MG TABLET PO SCH ×2 (08:04→20:12)
[2018-04-12 11:32] VITALS: BP_SYST 155
[2018-04-12] MEDS ORDERED: HEPARIN SODIUM,PORCINE 5000 UNITS/ML VIAL MC ONE (12:15)
[2018-04-12] MEDS ORDERED: SODIUM POLYSTYRENE SULFONATE 15 GM/60 ML UDBTL PO ONE (13:45)
[2018-04-12 15:41] VITALS: BP_SYST 177
[2018-04-12] MEDS: CARVEDILOL 12.5 MG TABLET (COREG) PO SCH (16:26)
[2018-04-12] MEDS: DIPHENHYDRAMINE INJ 50 MG/ML VIAL IVP PRN ×2 (16:27→20:22)
[2018-04-12 20:15] VITALS: BP_SYST 148
[2018-04-13 00:30] VITALS: BP_SYST 163
[2018-04-13] MEDS: DIPHENHYDRAMINE INJ 50 MG/ML VIAL IVP PRN ×6 (00:32→21:37)
[2018-04-13] MEDS: MORPHINE 4 MG/ML INJ. SYRINGE IVP PRN ×6 (00:33→21:43)
[2018-04-13] MEDS: hydrALAZINE HCL 25 MG TABLET PO SCH ×3 (06:40→21:44)
[2018-04-13 07:28] LABS: HEMATOCRIT 35.2 % (36-48); HEMOGLOBIN 11.5 g/dL (12.0-16.0); MEAN CORPUSCULAR HEMOGLOBIN 32 pg (27-31); MEAN CORPUSCULAR HGB CONC 33 % (32-36); MEAN CORPUSCULAR VOLUME 99 fL (79.0-98.0); RED BLOOD CELL COUNT(AUTO) 3.57 MIL/uL (4.2-6.2); RED CELL DISTRIBUTION WIDTH 17.3 % (9.0-15.0); WHITE BLOOD COUNT (AUTO) 5.5 K/uL (4.8-10.8)
[2018-04-13 07:29] LABS: BASOPHILS % (AUTO) 0.2 % (0.0-2.0); EOSINOPHILS # (AUTO) 0.1 K/uL (0.0-0.4); EOSINOPHILS % (AUTO) 2.1 % (0.0-4.0); LYMPHOCYTES # (AUTO) 0.9 K/uL (1.0-5.5); LYMPHOCYTES % (AUTO) 17.2 % (20.5-51.5); MONOCYTES # (AUTO) 0.5 K/uL (0.0-1.0); MONOCYTES % (AUTO) 9.6 % (1.7-9.3); NEUTROPHILS % (AUTO) 70.9 % (40.0-70.0); PLATELET COUNT (AUTO) 170 K/uL (130-430)
[2018-04-13 07:30] VITALS: BP_SYST 152
[2018-04-13 08:00] LABS: POTASSIUM 5.1 mmol/L (3.5-5.1)
[2018-04-13 08:01] LABS: CALCIUM 9.1 mg/dL (8.4-11.0); CREATININE 5.35 mg/dL (0.55-1.30)
[2018-04-13] MEDS: METOCLOPRAMIDE HCL 10 MG TABLET PO SCH ×2 (08:40→21:28)
[2018-04-13] MEDS: PANTOPRAZOLE SODIUM 40 MG/VIAL (PROTONIX) IVP SCH ×2 (08:40→21:28)
[2018-04-13] MEDS: CARVEDILOL 12.5 MG TABLET (COREG) PO SCH (08:40)
[2018-04-13] MEDS: DOCUSATE SODIUM 250 MG CAPSULE PO SCH ×3 (08:41→21:28)
[2018-04-13] MEDS ORDERED: SODIUM POLYSTYRENE SULFONATE 15 GM/60 ML UDBTL PO ONE (10:45)
[2018-04-13 10:51] VITALS: BP_SYST 147
[2018-04-13] MEDS ORDERED: DOXYCYCLINE HYCLATE 100 MG CAPSULE PO ONE (11:15)
[2018-04-13 12:06] VITALS: BP_SYST 151
[2018-04-13] MEDS ORDERED: DOXY100T2 PO (15:17)
[2018-04-13 16:23] VITALS: BP_SYST 165
[2018-04-13] MEDS ORDERED: PROMETHAZINE-DM 6.25 MG-15 MG/5 ML UDC PO PRN (17:30)
[2018-04-13] MEDS ORDERED: IPRATROPIUM/ALBUTEROL SULFATE 3 ML AMPUL.NEB (DUONEB) INH PRN (17:30)
[2018-04-13] MEDS: cefTRIAXone 1 GM in D5W 50 ML IV SCH (17:56)
[2018-04-13 21:15] VITALS: BP_SYST 195
[2018-04-13] MEDS: DOXYCYCLINE HYCLATE 100 MG CAPSULE PO SCH (21:28)
[2018-04-14 00:38] VITALS: BP_SYST 197
[2018-04-14] MEDS: DIPHENHYDRAMINE INJ 50 MG/ML VIAL IVP PRN ×4 (03:27→23:10)
[2018-04-14] MEDS: MORPHINE 4 MG/ML INJ. SYRINGE IVP PRN ×4 (03:30→20:10)
[2018-04-14] MEDS: hydrALAZINE HCL 25 MG TABLET PO SCH ×3 (06:04→22:00)
[2018-04-14 08:20] VITALS: BP_SYST 176
[2018-04-14] MEDS: DOXYCYCLINE HYCLATE 100 MG CAPSULE PO SCH (08:32)
[2018-04-14] MEDS: METOCLOPRAMIDE HCL 10 MG TABLET PO SCH ×2 (08:32→20:11)
[2018-04-14] MEDS: DOCUSATE SODIUM 250 MG CAPSULE PO SCH ×2 (08:32→20:12)
[2018-04-14] MEDS: PANTOPRAZOLE SODIUM 40 MG/VIAL (PROTONIX) IVP SCH ×3 (08:33→20:16)
[2018-04-14] MEDS: CARVEDILOL 12.5 MG TABLET (COREG) PO SCH (08:45)
[2018-04-14] MEDS ORDERED: CARVEDILOL 25 MG TABLET (COREG) PO ONE (09:45)
[2018-04-14] MEDS ORDERED: CARVEDILOL 12.5 MG TABLET (COREG) PO ONE (09:45)
[2018-04-14 11:23] VITALS: BP_SYST 142
[2018-04-14 15:42] VITALS: BP_SYST 141
[2018-04-14] MEDS ORDERED: DIPHENHYDRAMINE INJ 50 MG/ML VIAL IVP ONE (16:30)
[2018-04-14] MEDS ORDERED: PROMETHAZINE HCL 25 MG/SUPP.RECT RC ONE (16:30)
[2018-04-14] MEDS ORDERED: TRIMETHOBENZAMIDE HCL 200 MG/2 ML VIAL IM PRN (16:30)
[2018-04-14] MEDS ORDERED: METOCLOPRAMIDE HCL 10 MG/2 ML VIAL IVP PRN (17:00)
[2018-04-14] MEDS ORDERED: METOCLOPRAMIDE HCL 10 MG/2 ML VIAL IVP ONE (17:00)
[2018-04-14] MEDS: cefTRIAXone 1 GM in D5W 50 ML IV SCH (17:07)
[2018-04-14 20:00] VITALS: BP_SYST 150
[2018-04-14] MEDS: CARVEDILOL 25 MG TABLET (COREG) PO SCH (20:11)
[2018-04-14] MEDS ORDERED: AZITHROMYCIN 500 MG/VIAL (ZITHROMAX) IV ONE (20:50)
[2018-04-14] MEDS: AZITHROMYCIN 500 MG in NS 250 ML IV SCH (21:12)
[2018-04-14 22:16] VITALS: BP_SYST 111
[2018-04-15] VITALS (9 sets, daily range): BP systolic 88–133
[2018-04-15] MEDS: MORPHINE 4 MG/ML INJ. SYRINGE IVP PRN ×4 (00:20→14:29)
[2018-04-15] MEDS: DIPHENHYDRAMINE INJ 50 MG/ML VIAL IVP PRN ×3 (03:42→14:29)
[2018-04-15] MEDS: hydrALAZINE HCL 25 MG TABLET PO SCH ×2 (06:00→12:49)
[2018-04-15] MEDS: PANTOPRAZOLE SODIUM 40 MG/VIAL (PROTONIX) IVP SCH (08:15)
[2018-04-15] MEDS: CARVEDILOL 25 MG TABLET (COREG) PO SCH (08:16)
[2018-04-15] MEDS: METOCLOPRAMIDE HCL 10 MG TABLET PO SCH (08:16)
[2018-04-15] MEDS: DOCUSATE SODIUM 250 MG CAPSULE PO SCH (09:00)
[2018-04-15] MEDS: AZITHROMYCIN 500 MG in NS 250 ML IV SCH (15:04)
[2018-04-15] MEDS: cefTRIAXone 1 GM in D5W 50 ML IV SCH (16:50)
== END 2018-04-15 18:00 | disposition home or self-care (01) | DRG 291 ==
LOC: SED 22:09 → STU 04-10 01:50
PROVIDERS: ADMIT Internal Medicine; ATTEND Internal Medicine
PROC: 5A1D70Z Performance of Urinary Filtration, Intermittent, Less than 6 Hours Per Day (ICD-10-PCS; principal; 2018-04-10)
PROC: 5A1D70Z Performance of Urinary Filtration, Intermittent, Less than 6 Hours Per Day (ICD-10-PCS; 2018-04-12)
PROC: 5A1D70Z Performance of Urinary Filtration, Intermittent, Less than 6 Hours Per Day (ICD-10-PCS; 2018-04-14)
DX: I13.2 Hypertensive heart and chronic kidney disease with heart failure and with stage 5 chronic kidney disease, or end stage renal disease (principal); N18.6 End stage renal disease; I50.43 Acute on chronic combined systolic (congestive) and diastolic (congestive) heart failure; R18.8 Other ascites; E87.5 Hyperkalemia; I42.9 Cardiomyopathy, unspecified; K31.84 Gastroparesis; D63.8 Anemia in other chronic diseases classified elsewhere; E10.21 Type 1 diabetes mellitus with diabetic nephropathy; E10.22 Type 1 diabetes mellitus with diabetic chronic kidney disease; E10.40 Type 1 diabetes mellitus with diabetic neuropathy, unspecified; E10.69 Type 1 diabetes mellitus with other specified complication; G89.4 Chronic pain syndrome; K31.9 Disease of stomach and duodenum, unspecified; E10.43 Type 1 diabetes mellitus with diabetic autonomic (poly)neuropathy; F41.9 Anxiety disorder, unspecified; L30.9 Dermatitis, unspecified; J20.9 Acute bronchitis, unspecified; Z53.29 Procedure and treatment not carried out because of patient's decision for other reasons; Z79.4 Long term (current) use of insulin; Z83.3 Family history of diabetes mellitus; Z93.1 Gastrostomy status; Z99.2 Dependence on renal dialysis; Z88.8 Allergy status to other drugs, medicaments and biological substances; Z91.040 Latex allergy status; Z91.15 Patient's noncompliance with renal dialysis
CPT/HCPCS: 36415; 71045; 76705; 80048; 80053; 82140-TC; 82962; 83690-TC; 85025; 85610-TC; 87081; 90935; 90937; 93306; 96374; 96375; 99285; C9113; G0378; J0456; J0696; J1200; J1644; J1815; J1885; J2270; J2405; J2765; J2800; J7030; J7050; J7060; J8597

== ENCOUNTER 2018-05-09 09:53 | Inpatient (IN) | payer OTHER ==
[~2018-05-09] VITALS: Ht 170.2 cm; Wt 59.2 kg
[~2018-05-09 09:53] MED LIST changes: +DOXY100T2 PO
[2018-05-09 10:01] VITALS: BP_SYST 165
[2018-05-09] MEDS ORDERED: ONDANSETRON HCL 4 MG/2 ML VIAL IVP ONE (10:15)
[2018-05-09] MEDS ORDERED: MORPHINE 2 MG/ML INJ. SYRINGE IVP ONE (10:15)
[2018-05-09 10:31] LABS: BASOPHILS % (AUTO) 0.6 % (0.0-2.0); EOSINOPHILS # (AUTO) 0.2 K/uL (0.0-0.4); EOSINOPHILS % (AUTO) 2.6 % (0.0-4.0); HEMATOCRIT 36.8 % (36-48); HEMOGLOBIN 11.7 g/dL (12.0-16.0); LYMPHOCYTES # (AUTO) 1.1 K/uL (1.0-5.5); LYMPHOCYTES % (AUTO) 18.1 % (20.5-51.5); MEAN CORPUSCULAR HEMOGLOBIN 31 pg (27-31); MEAN CORPUSCULAR HGB CONC 32 % (32-36); MEAN CORPUSCULAR VOLUME 99 fL (79.0-98.0); MONOCYTES # (AUTO) 0.5 K/uL (0.0-1.0); MONOCYTES % (AUTO) 8.6 % (1.7-9.3); NEUTROPHILS # (AUTO) 4.4 K/uL (1.8-7.7); NEUTROPHILS % (AUTO) 70.1 % (40.0-70.0); PLATELET COUNT (AUTO) 151 K/uL (130-430); RED BLOOD CELL COUNT(AUTO) 3.71 MIL/uL (4.2-6.2); RED CELL DISTRIBUTION WIDTH 17.3 % (9.0-15.0); WHITE BLOOD COUNT (AUTO) 6.2 K/uL (4.8-10.8)
[2018-05-09] MEDS ORDERED: MORPHINE 4 MG/ML INJ. SYRINGE ONE (10:40)
[2018-05-09] MEDS ORDERED: DIPHENHYDRAMINE INJ 50 MG/ML VIAL IVP ONE (10:45)
[2018-05-09 11:05] LABS: CALCIUM 9.3 mg/dL (8.4-11.0); CREATININE 7.44 mg/dL (0.55-1.30)
[2018-05-09 11:14] LABS: ALBUMIN 3.3 g/dL (3.4-4.8); TOTAL BILIRUBIN 0.9 mg/dL (0.0-1.0)
[2018-05-09] MEDS ORDERED: INSULIN REGULAR, HUMAN 10 UNITS/0.1 ML INJ IVP ONE (11:15)
[2018-05-09] MEDS ORDERED: SODIUM BICARBONATE 8.4% JECT 50 MEQ/50 ML SYRINGE IVP ONE (11:15)
[2018-05-09] MEDS ORDERED: DEXTROSE 50% JECT 50 ML DISP.SYRIN IVP ONE (11:15)
[2018-05-09 11:16] LABS: POTASSIUM 6.4 mmol/L (3.5-5.1)
[2018-05-09] MEDS ORDERED: ONDANSETRON HCL 4 MG/2 ML VIAL IVP PRN (14:00)
[2018-05-09 15:16] VITALS: BP_SYST 164
[2018-05-09] MEDS: HYDROmorphone 2 MG/ML VIAL IVP PRN ×3 (16:00→23:57)
[2018-05-09 16:30] VITALS: BP_SYST 146
[2018-05-09 19:44] VITALS: BP_SYST 175
[2018-05-09] MEDS ORDERED: hydrALAZINE HCL 20 MG/ML VIAL IVP PRN (22:45)
[2018-05-10 00:10] VITALS: BP_SYST 114
[2018-05-10] MEDS: HYDROmorphone 2 MG/ML VIAL IVP PRN ×5 (03:54→21:40)
[2018-05-10 03:59] VITALS: BP_SYST 165
[2018-05-10 07:41] LABS: BASOPHILS % (AUTO) 0.4 % (0.0-2.0); EOSINOPHILS # (AUTO) 0.1 K/uL (0.0-0.4); EOSINOPHILS % (AUTO) 2.1 % (0.0-4.0); HEMATOCRIT 32.5 % (36-48); HEMOGLOBIN 10.7 g/dL (12.0-16.0); LYMPHOCYTES # (AUTO) 1.3 K/uL (1.0-5.5); MEAN CORPUSCULAR HEMOGLOBIN 33 pg (27-31); MEAN CORPUSCULAR HGB CONC 33 % (32-36); MEAN CORPUSCULAR VOLUME 99 fL (79.0-98.0); MONOCYTES # (AUTO) 0.8 K/uL (0.0-1.0); MONOCYTES % (AUTO) 11.9 % (1.7-9.3); NEUTROPHILS # (AUTO) 4.1 K/uL (1.8-7.7); NEUTROPHILS % (AUTO) 64.6 % (40.0-70.0); PLATELET COUNT (AUTO) 167 K/uL (130-430); RED BLOOD CELL COUNT(AUTO) 3.27 MIL/uL (4.2-6.2); WHITE BLOOD COUNT (AUTO) 6.3 K/uL (4.8-10.8)
[2018-05-10 07:51] VITALS: BP_SYST 153
[2018-05-10 08:04] LABS: ALBUMIN 3.1 g/dL (3.4-4.8); CALCIUM 8.7 mg/dL (8.4-11.0); CREATININE 5.97 mg/dL (0.55-1.30); PHOSPHORUS 4.8 mg/dL (2.7-4.5); POTASSIUM 5.7 mmol/L (3.5-5.1); TOTAL BILIRUBIN 0.9 mg/dL (0.0-1.0)
[2018-05-10] MEDS ORDERED: BISACODYL 10 MG/SUPPOSITORY RC ONE (08:15)
[2018-05-10 08:45] LABS: RED CELL DISTRIBUTION WIDTH 16.9 % (9.0-15.0)
[2018-05-10] MEDS: PANTOPRAZOLE SODIUM 40 MG/VIAL (PROTONIX) IVP SCH (09:17)
[2018-05-10] MEDS: POLYETHYLENE GLYCOL 3350, 17 GM/ POWD.PACK PO SCH ×2 (09:18→21:32)
[2018-05-10 11:34] VITALS: BP_SYST 123
[2018-05-10 15:31] VITALS: BP_SYST 159
[2018-05-10] MEDS: METOCLOPRAMIDE HCL 10 MG/2 ML VIAL IVP SCH ×2 (16:17→21:32)
[2018-05-10] MEDS: LORazepam 2 MG/ML VIAL IVP PRN (18:09)
[2018-05-10 19:10] VITALS: BP_SYST 163
[2018-05-10] MEDS: INSULIN REGULAR, HUMAN 100 UNITS/ML, 10 ML VIAL (novoLIN R) SUBCUT PRN (21:44)
[2018-05-11] MEDS: HYDROmorphone 2 MG/ML VIAL IVP PRN ×7 (00:58→22:16)
[2018-05-11 01:19] VITALS: BP_SYST 135
[2018-05-11] MEDS: METOCLOPRAMIDE HCL 10 MG/2 ML VIAL IVP SCH ×3 (05:59→21:14)
[2018-05-11] MEDS: DIPHENHYDRAMINE INJ 50 MG/ML VIAL IVP PRN ×2 (06:19→23:21)
[2018-05-11 08:09] VITALS: BP_SYST 162
[2018-05-11] MEDS: PANTOPRAZOLE SODIUM 40 MG/VIAL (PROTONIX) IVP SCH (10:12)
[2018-05-11] MEDS: POLYETHYLENE GLYCOL 3350, 17 GM/ POWD.PACK PO SCH ×2 (10:12→21:14)
[2018-05-11] MEDS: LORazepam 2 MG/ML VIAL IVP PRN ×2 (10:13→17:45)
[2018-05-11 12:02] VITALS: BP_SYST 137
[2018-05-11 16:02] VITALS: BP_SYST 135
[2018-05-11] MEDS: INSULIN REGULAR, HUMAN 100 UNITS/ML, 10 ML VIAL (novoLIN R) SUBCUT PRN (17:48)
[2018-05-11 19:10] VITALS: BP_SYST 135
[2018-05-12 01:09] VITALS: BP_SYST 143
[2018-05-12] MEDS: HYDROmorphone 2 MG/ML VIAL IVP PRN ×5 (02:14→22:08)
[2018-05-12] MEDS: LORazepam 2 MG/ML VIAL IVP PRN ×4 (02:52→21:00)
[2018-05-12] MEDS: METOCLOPRAMIDE HCL 10 MG/2 ML VIAL IVP SCH ×3 (05:54→23:00)
[2018-05-12] MEDS: PANTOPRAZOLE SODIUM 40 MG/VIAL (PROTONIX) IVP SCH (08:57)
[2018-05-12] MEDS: POLYETHYLENE GLYCOL 3350, 17 GM/ POWD.PACK PO SCH ×2 (08:57→21:00)
[2018-05-12 15:35] VITALS: BP_SYST 152
[2018-05-12 15:36] LABS: APPEARANCE,SPUN,BODY FLUID CLEAR (CLEAR); BF APPEARANCE UNSPUN BLOODY (CLEAR); BODY FLUID COLOR YELLOW (LT YELLOW); BODY FLUID TOTAL VOLUME 3300 mL; NEUTROPHIL, BODY FLUID 18 %; RBC, BODY FLUID 2948 /uL; SOURCE/TYPE ,BODY FLUID ASCITES; WBC, BODY FLUID 86 /uL
[2018-05-12 15:37] LABS: LYMPHOCYTES, BODY FLUID 82 %
[2018-05-12] MEDS: INSULIN REGULAR, HUMAN 100 UNITS/ML, 10 ML VIAL (novoLIN R) SUBCUT PRN ×2 (17:32→21:08)
[2018-05-12 20:30] LABS: BODY FLUID GLUCOSE 163 mg/dL
[2018-05-12 20:31] LABS: BODY FLUID TOTAL PROTEIN 4.5 g/dL
[2018-05-12 20:49] VITALS: BP_SYST 156
[2018-05-13] MEDS: HYDROmorphone 2 MG/ML VIAL IVP PRN ×7 (01:09→19:53)
[2018-05-13 01:15] VITALS: BP_SYST 132
[2018-05-13] MEDS: DIPHENHYDRAMINE INJ 50 MG/ML VIAL IVP PRN (02:09)
[2018-05-13] MEDS: LORazepam 2 MG/ML VIAL IVP PRN ×2 (03:14→09:01)
[2018-05-13] MEDS: METOCLOPRAMIDE HCL 10 MG/2 ML VIAL IVP SCH ×2 (06:00→14:00)
[2018-05-13] MEDS: INSULIN REGULAR, HUMAN 100 UNITS/ML, 10 ML VIAL (novoLIN R) SUBCUT PRN (06:46)
[2018-05-13 07:30] VITALS: BP_SYST 146
[2018-05-13] MEDS: PANTOPRAZOLE SODIUM 40 MG/VIAL (PROTONIX) IVP SCH (08:00)
[2018-05-13] MEDS: POLYETHYLENE GLYCOL 3350, 17 GM/ POWD.PACK PO SCH (08:00)
[2018-05-13 11:34] VITALS: BP_SYST 136
[2018-05-13 15:35] VITALS: BP_SYST 130
[2018-05-13 19:37] VITALS: BP_SYST 144
[2018-05-13 20:00] VITALS: BP_SYST 144
[2018-05-22] MEDS ORDERED: NEU400 PO (16:24)
[2018-07-28] MEDS ORDERED: LORA-259 PO (18:59)
== END 2018-05-13 21:30 | disposition home health service (06) | DRG 73 ==
LOC: SED 09:53 → STU 13:50
PROVIDERS: ADMIT Internal Medicine; ATTEND Internal Medicine
PROC: 5A1D70Z Performance of Urinary Filtration, Intermittent, Less than 6 Hours Per Day (ICD-10-PCS; principal; 2018-05-09)
PROC: 5A1D70Z Performance of Urinary Filtration, Intermittent, Less than 6 Hours Per Day (ICD-10-PCS; 2018-05-10)
PROC: 5A1D70Z Performance of Urinary Filtration, Intermittent, Less than 6 Hours Per Day (ICD-10-PCS; 2018-05-12)
PROC: 0W9G3ZZ Drainage of Peritoneal Cavity, Percutaneous Approach (ICD-10-PCS; 2018-05-12)
DX: E10.43 Type 1 diabetes mellitus with diabetic autonomic (poly)neuropathy (principal); N18.6 End stage renal disease; I13.2 Hypertensive heart and chronic kidney disease with heart failure and with stage 5 chronic kidney disease, or end stage renal disease; N25.81 Secondary hyperparathyroidism of renal origin; R18.8 Other ascites; F11.20 Opioid dependence, uncomplicated; E87.5 Hyperkalemia; E10.22 Type 1 diabetes mellitus with diabetic chronic kidney disease; D63.1 Anemia in chronic kidney disease; G89.29 Other chronic pain; I50.9 Heart failure, unspecified; K31.84 Gastroparesis; E10.65 Type 1 diabetes mellitus with hyperglycemia; K59.9 Functional intestinal disorder, unspecified; K59.00 Constipation, unspecified; K76.1 Chronic passive congestion of liver; L29.9 Pruritus, unspecified; N26.9 Renal sclerosis, unspecified; T40.605A Adverse effect of unspecified narcotics, initial encounter; Z99.2 Dependence on renal dialysis
CPT/HCPCS: 36415; 49083; 71045; 74021; 76700-TC; 80053; 82042; 82947-TC; 82962; 83036; 83690-TC; 83735-TC; 83880; 84100-TC; 84157-TC; 84484; 85025; 87070-TC; 87081; 88108; 89051-TC; 89060-TC; 90935; 90937; 93005; 96374; 96375; 99285; C1729; C9113; G0378; J0360; J1170; J1200; J1815; J2060; J2270; J2405; J2765; J7030

== ENCOUNTER 2018-05-23 07:37 | Emergency (ER) | payer OTHER ==
[~2018-05-23] VITALS: Ht 170.2 cm; Wt 63.5 kg
[~2018-05-23 07:37] MED LIST changes: -CARV12.548 PO; -DOXY100T2 PO; +NEU400 PO; -PATI8.4P PO; -SSNOVOLOG SUBCUT
[2018-05-23 07:50] VITALS: BP_SYST 194
--- NOTE | 2018-05-23 07:55 | NUR ---
Patient to ER bed 7 to gown for evaluation. Side rails up. Report given to Antonio PATEL.
--- NOTE | 2018-05-23 08:00 | NUR ---
ER Dr. Perez at bedside examining patient.
--- NOTE | 2018-05-23 08:00 | NUR ---
Pt is alert and oriented x4, c/o mid abd pain intermittent for a few days, c/o nausea, and vomiting. Pt has dialysis today, but missed it due to being in ER for abd pain. VSS, will continue to monitor.
[2018-05-23] MEDS ORDERED: DIPHENHYDRAMINE INJ 50 MG/ML VIAL IVP ONE (08:15)
[2018-05-23] MEDS ORDERED: fentaNYL CITRATE/PF 100 MCG/2 ML AMP IVP ONE (08:15)
[2018-05-23] MEDS ORDERED: METOCLOPRAMIDE HCL 10 MG/2 ML VIAL IVP ONE (08:15)
[2018-05-23] MEDS ORDERED: hydrALAZINE HCL 20 MG/ML VIAL IVP ONE (08:30)
[2018-05-23] MEDS ORDERED: KETAMINE 30 MG/3 ML SYRINGE 20 MG in NS 100 ML IV ONE (09:15)
[2018-05-23] MEDS ORDERED: PROCHLORPERAZINE EDISYLATE 10 MG/2 ML VIAL IVP ONE (09:15)
[2018-05-23 09:31] LABS: BASOPHILS % (AUTO) 0.2 % (0.0-2.0); EOSINOPHILS # (AUTO) 0.1 K/uL (0.0-0.4); EOSINOPHILS % (AUTO) 1.2 % (0.0-4.0); HEMATOCRIT 32.7 % (36-48); HEMOGLOBIN 10.5 g/dL (12.0-16.0); LYMPHOCYTES # (AUTO) 0.8 K/uL (1.0-5.5); LYMPHOCYTES % (AUTO) 10.8 % (20.5-51.5); MEAN CORPUSCULAR HEMOGLOBIN 31 pg (27-31); MEAN CORPUSCULAR HGB CONC 32 % (32-36); MEAN CORPUSCULAR VOLUME 97 fL (79.0-98.0); MONOCYTES # (AUTO) 0.6 K/uL (0.0-1.0); MONOCYTES % (AUTO) 9.2 % (1.7-9.3); NEUTROPHILS # (AUTO) 5.5 K/uL (1.8-7.7); NEUTROPHILS % (AUTO) 78.6 % (40.0-70.0); PLATELET COUNT (AUTO) 185 K/uL (130-430); RED BLOOD CELL COUNT(AUTO) 3.36 MIL/uL (4.2-6.2); RED CELL DISTRIBUTION WIDTH 15.9 % (9.0-15.0)
[2018-05-23] MEDS ORDERED: KETAMINE 30 MG/3 ML SYRINGE ONE (09:33)
[2018-05-23 09:48] LABS: CALCIUM 8.5 mg/dL (8.4-11.0); CREATININE 6.01 mg/dL (0.55-1.30); POTASSIUM 4.8 mmol/L (3.5-5.1)
[2018-05-23 09:54] LABS: TOTAL BILIRUBIN 0.7 mg/dL (0.0-1.0)
[2018-05-23 09:55] LABS: ALBUMIN 3.2 g/dL (3.4-4.8)
[2018-05-23] MEDS ORDERED: INSULIN REGULAR, HUMAN 10 UNITS/0.1 ML INJ IVP ONE (10:00)
[2018-05-23] MEDS ORDERED: NS 500 ML IV ONE (10:00)
--- NOTE | 2018-05-23 10:16 | NUR ---
Patient states that her pain is not improved at all. Requests additional medication. Discussed with Dr. Perez who states that no additiatonl analgesics are indicated at this time.
--- NOTE | 2018-05-23 10:25 | NUR ---
Dr. Perez at bedside discussing pain management and plan of care with patient.
--- NOTE | 2018-05-23 10:55 | NUR ---
Dr. Perez at bedside to discuss with pt about pain management. Pt wants to go home at this time. Pt's BS 276, MD aware.
[2018-05-23 11:23] VITALS: BP_SYST 160
--- NOTE | 2018-05-23 11:23 | NUR ---
Patient given written and verbal discharge instructions and verbalizes understanding. ER MD discussed with patient the results and treatment provided. Patient in stable condition. ID arm band removed. IV catheter removed intact and dressing applied, no active bleeding. Patient educated on pain management and to follow up with PMD. Pain Scale 4/10.Opportunity for questions provided and answered. Medication side effect fact sheet provided.
== END 2018-05-23 11:23 | disposition home or self-care (01) ==
LOC: SED 07:37
DX: E10.43 Type 1 diabetes mellitus with diabetic autonomic (poly)neuropathy (principal); E10.65 Type 1 diabetes mellitus with hyperglycemia; K31.84 Gastroparesis; I13.2 Hypertensive heart and chronic kidney disease with heart failure and with stage 5 chronic kidney disease, or end stage renal disease; E10.22 Type 1 diabetes mellitus with diabetic chronic kidney disease; I50.9 Heart failure, unspecified; N18.6 End stage renal disease; F11.20 Opioid dependence, uncomplicated; Z99.2 Dependence on renal dialysis; Z86.2 Personal history of diseases of the blood and blood-forming organs and certain disorders involving the immune mechanism; Z91.040 Latex allergy status; Z88.8 Allergy status to other drugs, medicaments and biological substances; Z79.899 Other long term (current) drug therapy
CPT/HCPCS: 36415; 80053; 82962; 83690; 85025; 96374; 96375; 99283; J0360; J0780; J1200; J1815; J2765; J3010; J7040

== ENCOUNTER 2018-07-04 07:39 | Inpatient (IN) | payer OTHER ==
[~2018-07-04] VITALS: Ht 170.2 cm; Wt 59.0 kg
[2018-07-04 07:45] VITALS: BP_SYST 159
[2018-07-04] MEDS ORDERED: fentaNYL CITRATE/PF 100 MCG/2 ML AMP IVP ONE ×2 (08:15→09:15)
[2018-07-04] MEDS ORDERED: VANCOMYCIN HCL 1,000 MG in NS 250 ML IV ONE (08:15)
[2018-07-04] MEDS ORDERED: PIPERACILLIN/TAZO 3.375 GM in NS 50 ML IV ONE (08:15)
[2018-07-04] MEDS ORDERED: NACL 0.9% 1,000 ML IV ONE (08:15)
[2018-07-04] MEDS ORDERED: ONDANSETRON HCL 4 MG/2 ML VIAL IVP ONE (08:30)
[2018-07-04] MEDS ORDERED: PIPERACILLIN/TAZOBACTAM 3.375 GM/VIAL (ZOSYN) IV ONE (08:33)
[2018-07-04] MEDS ORDERED: VANCOMYCIN HCL 1000 MG/VIAL IV ONE (08:41)
[2018-07-04 08:50] LABS: HEMATOCRIT 36.3 % (36-48); HEMOGLOBIN 11.5 g/dL (12.0-16.0); RED BLOOD CELL COUNT(AUTO) 3.69 MIL/uL (4.2-6.2); WHITE BLOOD COUNT (AUTO) 23.9 K/uL (4.8-10.8)
[2018-07-04 08:51] LABS: BASOPHILS # (AUTO) 0.1 K/uL (0.0-0.2); BASOPHILS % (AUTO) 0.3 % (0.0-2.0); EOSINOPHILS # (AUTO) 0.2 K/uL (0.0-0.4); EOSINOPHILS % (AUTO) 0.8 % (0.0-4.0); LYMPHOCYTES # (AUTO) 1.4 K/uL (1.0-5.5); LYMPHOCYTES % (AUTO) 5.9 % (20.5-51.5); MEAN CORPUSCULAR HEMOGLOBIN 31 pg (27-31); MEAN CORPUSCULAR HGB CONC 32 % (32-36); MEAN CORPUSCULAR VOLUME 99 fL (79.0-98.0); MONOCYTES % (AUTO) 4.2 % (1.7-9.3); NEUTROPHILS # (AUTO) 21.2 K/uL (1.8-7.7); PLATELET COUNT (AUTO) 200 K/uL (130-430); RED CELL DISTRIBUTION WIDTH 17.4 % (9.0-15.0)
[2018-07-04 08:55] LABS: CALCIUM 9.7 mg/dL (8.4-11.0); POTASSIUM 5.3 mmol/L (3.5-5.1)
[2018-07-04 09:01] LABS: INR 1.3 (0.8-1.2); PROTHROMBIN TIME 13.2 SECS (9.5-12.5)
[2018-07-04 09:02] LABS: CREATININE 10.36 mg/dL (0.55-1.30)
[2018-07-04 09:05] LABS: ALBUMIN 2.8 g/dL (3.4-4.8); TOTAL BILIRUBIN 1.7 mg/dL (0.0-1.0)
[2018-07-04] MEDS ORDERED: KETAMINE 30 MG/3 ML SYRINGE 20 MG in NS 100 ML IV ONE (09:15)
[2018-07-04] MEDS ORDERED: KETAMINE 30 MG/3 ML SYRINGE ONE (09:34)
[2018-07-04] MEDS ORDERED: DIPHENHYDRAMINE INJ 50 MG/ML VIAL IVP ONE (10:00)
[2018-07-04] MEDS ORDERED: PROCHLORPERAZINE EDISYLATE 10 MG/2 ML VIAL IVP ONE (10:00)
[2018-07-04 10:38] VITALS: BP_SYST 162
[2018-07-04 10:42] LABS: NEUTROPHILS % (AUTO) 88.8 % (40.0-70.0)
[2018-07-04] MEDS ORDERED: traMADol HCL HCL 50 MG TABLET (ULTRAM) PO PRN (16:00)
[2018-07-04 16:10] LABS: CALCIUM 9.6 mg/dL (8.4-11.0); POTASSIUM 5.6 mmol/L (3.5-5.1)
[2018-07-04 16:13] LABS: CREATININE 10.25 mg/dL (0.55-1.30)
[2018-07-04 16:37] VITALS: BP_SYST 165
[2018-07-04] MEDS ORDERED: NON-FORMULARY MEDICATION (Insulin Detemir (Levemir) 25 UNIT) SQ SCH (21:00)
[2018-07-04 21:15] VITALS: BP_SYST 161
[2018-07-04] MEDS: hydrALAZINE HCL 25 MG TABLET PO SCH (21:33)
[2018-07-04] MEDS: HYDROmorphone 1 MG INJ. 1 MG/ML AMPUL IVP PRN (23:44)
[2018-07-05 00:42] VITALS: BP_SYST 162
[2018-07-05] MEDS: HYDROmorphone 1 MG INJ. 1 MG/ML AMPUL IVP PRN ×4 (05:17→21:52)
[2018-07-05] MEDS: hydrALAZINE HCL 25 MG TABLET PO SCH ×3 (06:00→21:22)
[2018-07-05 08:00] VITALS: BP_SYST 155
[2018-07-05] MEDS: GABAPENTIN 300 MG CAPSULE PO SCH (08:43)
[2018-07-05 12:07] VITALS: BP_SYST 166
[2018-07-05] MEDS ORDERED: BALSAM PERU/CASTOR OIL 60 GM OINT...G. TP ONE (13:00)
[2018-07-05] MEDS ORDERED: MINERAL OIL/PETROLATUM,WHITE 113 GM CREAM.GM. TP ONE (13:00)
[2018-07-05 16:52] VITALS: BP_SYST 183
[2018-07-05 20:00] VITALS: BP_SYST 132
[2018-07-05] MEDS ORDERED: VANCOMYCIN HCL 1 GM/NS PREMIX 250 ML IV ONE (21:00)
[2018-07-06 01:01] VITALS: BP_SYST 140
[2018-07-06] MEDS: HYDROmorphone 1 MG INJ. 1 MG/ML AMPUL IVP PRN ×6 (02:18→21:25)
[2018-07-06] MEDS: hydrALAZINE HCL 25 MG TABLET PO SCH ×3 (06:08→21:29)
[2018-07-06] MEDS ORDERED: D5W 1,000 ML IV PRN (06:11)
[2018-07-06] MEDS ORDERED: GLUCOSE 15 GM GEL (in 37.5 GM TUBE) PO PRN (06:15)
[2018-07-06] MEDS ORDERED: LABETALOL HCL 100 MG TABLET PO ONE (06:30)
[2018-07-06] MEDS: DEXTROSE 50% JECT 50 ML DISP.SYRIN IVP PRN (07:06)
[2018-07-06] MEDS: LABETALOL HCL 100 MG TABLET PO SCH ×3 (07:17→23:00)
[2018-07-06] MEDS: GABAPENTIN 300 MG CAPSULE PO SCH (08:07)
[2018-07-06] MEDS: MINERAL OIL/PETROLATUM,WHITE 113 GM CREAM.GM. TP SCH (08:09)
[2018-07-06 08:23] LABS: ALBUMIN 2.6 g/dL (3.4-4.8); CALCIUM 9.3 mg/dL (8.4-11.0); PHOSPHORUS 4.5 mg/dL (2.7-4.5); POTASSIUM 4.2 mmol/L (3.5-5.1); TOTAL BILIRUBIN 1.6 mg/dL (0.0-1.0)
[2018-07-06 08:29] VITALS: BP_SYST 163
[2018-07-06 08:33] LABS: CREATININE 7.7 mg/dL (0.55-1.30)
[2018-07-06 08:44] LABS: HEMOGLOBIN 11.6 g/dL (12.0-16.0); RED BLOOD CELL COUNT(AUTO) 3.71 MIL/uL (4.2-6.2); WHITE BLOOD COUNT (AUTO) 15.7 K/uL (4.8-10.8)
[2018-07-06 08:45] LABS: BASOPHILS % (AUTO) 0.2 % (0.0-2.0); EOSINOPHILS % (AUTO) 0.3 % (0.0-4.0); LYMPHOCYTES # (AUTO) 1.4 K/uL (1.0-5.5); LYMPHOCYTES % (AUTO) 8.6 % (20.5-51.5); MEAN CORPUSCULAR HEMOGLOBIN 31 pg (27-31); MEAN CORPUSCULAR HGB CONC 31 % (32-36); MEAN CORPUSCULAR VOLUME 100 fL (79.0-98.0); MONOCYTES % (AUTO) 6.4 % (1.7-9.3); NEUTROPHILS # (AUTO) 13.3 K/uL (1.8-7.7); NEUTROPHILS % (AUTO) 84.5 % (40.0-70.0); PLATELET COUNT (AUTO) 206 K/uL (130-430)
[2018-07-06] MEDS ORDERED: SODIUM POLYSTYRENE SULFONATE 15 GM/60 ML UDBTL PO ONE (09:45)
[2018-07-06] MEDS: BALSAM PERU/CASTOR OIL 60 GM OINT...G. TP SCH (10:45)
[2018-07-06 12:19] VITALS: BP_SYST 159
[2018-07-06 16:07] VITALS: BP_SYST 96
[2018-07-06 17:26] VITALS: BP_SYST 103
[2018-07-06 20:00] VITALS: BP_SYST 125
[2018-07-06] MEDS: DIPHENHYDRAMINE INJ 50 MG/ML VIAL IVP PRN (21:33)
[2018-07-06] MEDS: INSULIN REGULAR, HUMAN 100 UNITS/ML, 10 ML VIAL (novoLIN R) SUBCUT PRN ×2 (21:33→21:37)
[2018-07-07] MEDS: HYDROmorphone 1 MG INJ. 1 MG/ML AMPUL IVP PRN ×8 (00:33→23:58)
[2018-07-07] MEDS: DIPHENHYDRAMINE INJ 50 MG/ML VIAL IVP PRN ×4 (03:44→20:46)
[2018-07-07 05:19] VITALS: BP_SYST 108
[2018-07-07] MEDS: LABETALOL HCL 100 MG TABLET PO SCH ×3 (05:57→23:00)
[2018-07-07] MEDS: hydrALAZINE HCL 25 MG TABLET PO SCH ×3 (05:57→22:00)
[2018-07-07 05:58] VITALS: BP_SYST 110
[2018-07-07] MEDS ORDERED: HYDROmorphone 1 MG INJ. 1 MG/ML AMPUL IVP ONE (06:30)
[2018-07-07 07:01] LABS: ALBUMIN 2.4 g/dL (3.4-4.8); CALCIUM 8.7 mg/dL (8.4-11.0); PHOSPHORUS 5.3 mg/dL (2.7-4.5); POTASSIUM 5.2 mmol/L (3.5-5.1); TOTAL BILIRUBIN 1.4 mg/dL (0.0-1.0); VANCOMYCIN,RANDOM 25.1 ug/mL
[2018-07-07 07:22] LABS: CREATININE 8.65 mg/dL (0.55-1.30)
[2018-07-07 07:45] LABS: HEMOGLOBIN 10.2 g/dL (12.0-16.0); RED BLOOD CELL COUNT(AUTO) 3.26 MIL/uL (4.2-6.2); WHITE BLOOD COUNT (AUTO) 11.9 K/uL (4.8-10.8)
[2018-07-07 07:46] LABS: HEMATOCRIT 32.1 % (36-48); MEAN CORPUSCULAR HEMOGLOBIN 31 pg (27-31); MEAN CORPUSCULAR HGB CONC 32 % (32-36); MEAN CORPUSCULAR VOLUME 99 fL (79.0-98.0); PLATELET COUNT (AUTO) 174 K/uL (130-430); RED CELL DISTRIBUTION WIDTH 17.6 % (9.0-15.0)
[2018-07-07] MEDS: MINERAL OIL/PETROLATUM,WHITE 113 GM CREAM.GM. TP SCH (08:19)
[2018-07-07] MEDS: GABAPENTIN 300 MG CAPSULE PO SCH (08:19)
[2018-07-07] MEDS: BALSAM PERU/CASTOR OIL 60 GM OINT...G. TP SCH (08:22)
[2018-07-07 08:28] VITALS: BP_SYST 122
[2018-07-07] MEDS ORDERED: VANCOMYCIN HCL 750 MG in NS 250 ML IV SCH (09:00)
[2018-07-07 10:22] LABS: BASOPHILS % (MANUAL) 0 % (0-2); EOSINOPHILS % (MANUAL) 0 % (0-7); LYMPHOCYTES % (MANUAL) 19 % (20-46); MONOCYTES % (MANUAL) 3 % (0-11)
[2018-07-07] MEDS: INSULIN REGULAR, HUMAN 100 UNITS/ML, 10 ML VIAL (novoLIN R) SUBCUT PRN ×2 (11:30→17:20)
[2018-07-07 12:02] VITALS: BP_SYST 150
[2018-07-07 16:02] VITALS: BP_SYST 133
[2018-07-07 19:57] VITALS: BP_SYST 145
[2018-07-08] MEDS: DIPHENHYDRAMINE INJ 50 MG/ML VIAL IVP PRN ×6 (04:18→23:25)
[2018-07-08] MEDS: HYDROmorphone 1 MG INJ. 1 MG/ML AMPUL IVP PRN ×6 (04:19→23:26)
[2018-07-08] MEDS: BALSAM PERU/CASTOR OIL 60 GM OINT...G. TP SCH (04:24)
[2018-07-08] MEDS: MINERAL OIL/PETROLATUM,WHITE 113 GM CREAM.GM. TP SCH (04:25)
[2018-07-08 05:33] VITALS: BP_SYST 95
[2018-07-08] MEDS: hydrALAZINE HCL 25 MG TABLET PO SCH ×3 (05:34→21:40)
[2018-07-08] MEDS: LABETALOL HCL 100 MG TABLET PO SCH ×3 (06:07→22:59)
[2018-07-08 07:40] LABS: CALCIUM 8.7 mg/dL (8.4-11.0); POTASSIUM 4.1 mmol/L (3.5-5.1)
[2018-07-08 07:45] LABS: PHOSPHORUS 4.7 mg/dL (2.7-4.5)
[2018-07-08 07:48] LABS: LYMPHOCYTES % (AUTO) 6.1 % (20.5-51.5); MEAN CORPUSCULAR HEMOGLOBIN 31 pg (27-31); MEAN CORPUSCULAR HGB CONC 31 % (32-36); MEAN CORPUSCULAR VOLUME 99 fL (79.0-98.0); MONOCYTES % (AUTO) 6.1 % (1.7-9.3); NEUTROPHILS % (AUTO) 86.9 % (40.0-70.0); PLATELET COUNT (AUTO) 202 K/uL (130-430); RED BLOOD CELL COUNT(AUTO) 3.23 MIL/uL (4.2-6.2); RED CELL DISTRIBUTION WIDTH 17.5 % (9.0-15.0); WHITE BLOOD COUNT (AUTO) 16.6 K/uL (4.8-10.8)
[2018-07-08 07:49] LABS: BASOPHILS # (AUTO) 0.1 K/uL (0.0-0.2); BASOPHILS % (AUTO) 0.4 % (0.0-2.0); EOSINOPHILS # (AUTO) 0.1 K/uL (0.0-0.4); EOSINOPHILS % (AUTO) 0.5 % (0.0-4.0); NEUTROPHILS # (AUTO) 14.4 K/uL (1.8-7.7)
[2018-07-08 08:00] VITALS: BP_SYST 148
[2018-07-08] MEDS: GABAPENTIN 300 MG CAPSULE PO SCH (08:44)
[2018-07-08 12:04] VITALS: BP_SYST 125
[2018-07-08 16:46] VITALS: BP_SYST 126
[2018-07-08 20:00] VITALS: BP_SYST 125
[2018-07-09 00:01] VITALS: BP_SYST 148
[2018-07-09 03:18] VITALS: BP_SYST 135
[2018-07-09] MEDS: DEXTROSE 50% JECT 50 ML DISP.SYRIN IVP PRN ×3 (03:22→17:12)
[2018-07-09] MEDS: HYDROmorphone 1 MG INJ. 1 MG/ML AMPUL IVP PRN ×4 (04:21→18:29)
[2018-07-09] MEDS: DIPHENHYDRAMINE INJ 50 MG/ML VIAL IVP PRN (04:22)
[2018-07-09] MEDS: BALSAM PERU/CASTOR OIL 60 GM OINT...G. TP SCH (04:30)
[2018-07-09] MEDS: MINERAL OIL/PETROLATUM,WHITE 113 GM CREAM.GM. TP SCH (04:31)
[2018-07-09] MEDS: hydrALAZINE HCL 25 MG TABLET PO SCH ×3 (05:25→22:00)
[2018-07-09] MEDS: LABETALOL HCL 100 MG TABLET PO SCH ×3 (06:20→23:00)
[2018-07-09 08:00] VITALS: BP_SYST 106
[2018-07-09] MEDS: GABAPENTIN 300 MG CAPSULE PO SCH (09:00)
[2018-07-09 12:19] VITALS: BP_SYST 114
[2018-07-09 16:28] VITALS: BP_SYST 121
[2018-07-09 19:48] VITALS: BP_SYST 113
[2018-07-09] MEDS: INSULIN GLARGINE 100 UNITS/ML 10 ML VIAL SUBCUT SCH (20:54)
[2018-07-10] MEDS: DIPHENHYDRAMINE INJ 50 MG/ML VIAL IVP PRN ×2 (00:23→22:37)
[2018-07-10] MEDS: HYDROmorphone 1 MG INJ. 1 MG/ML AMPUL IVP PRN ×6 (00:28→22:36)
[2018-07-10 00:45] VITALS: BP_SYST 121
[2018-07-10] MEDS: LABETALOL HCL 100 MG TABLET PO SCH ×3 (06:38→23:00)
[2018-07-10] MEDS: hydrALAZINE HCL 25 MG TABLET PO SCH ×3 (06:40→22:00)
[2018-07-10 08:00] VITALS: BP_SYST 126
[2018-07-10] MEDS: GABAPENTIN 300 MG CAPSULE PO SCH (08:53)
[2018-07-10] MEDS: BALSAM PERU/CASTOR OIL 60 GM OINT...G. TP SCH (08:58)
[2018-07-10] MEDS: MINERAL OIL/PETROLATUM,WHITE 113 GM CREAM.GM. TP SCH (08:58)
[2018-07-10 12:40] VITALS: BP_SYST 115
[2018-07-10 16:12] VITALS: BP_SYST 106
[2018-07-10 20:00] VITALS: BP_SYST 120
[2018-07-10] MEDS: INSULIN GLARGINE 100 UNITS/ML 10 ML VIAL SUBCUT SCH (21:00)
[2018-07-11 01:12] VITALS: BP_SYST 121
[2018-07-11] MEDS: HYDROmorphone 1 MG INJ. 1 MG/ML AMPUL IVP PRN ×6 (01:33→20:30)
[2018-07-11] MEDS: hydrALAZINE HCL 25 MG TABLET PO SCH ×3 (06:13→22:00)
[2018-07-11] MEDS: LABETALOL HCL 100 MG TABLET PO SCH ×3 (07:00→22:14)
[2018-07-11 07:50] VITALS: BP_SYST 121
[2018-07-11 08:00] VITALS: BP_SYST 121
[2018-07-11] MEDS: GABAPENTIN 300 MG CAPSULE PO SCH (08:06)
[2018-07-11] MEDS: DIPHENHYDRAMINE INJ 50 MG/ML VIAL IVP PRN ×3 (08:06→20:29)
[2018-07-11] MEDS: BALSAM PERU/CASTOR OIL 60 GM OINT...G. TP SCH (09:00)
[2018-07-11] MEDS: MINERAL OIL/PETROLATUM,WHITE 113 GM CREAM.GM. TP SCH (09:00)
[2018-07-11] MEDS: INSULIN REGULAR, HUMAN 100 UNITS/ML, 10 ML VIAL (novoLIN R) SUBCUT PRN ×2 (11:17→17:29)
[2018-07-11 11:45] VITALS: BP_SYST 140
[2018-07-11 16:08] VITALS: BP_SYST 130
[2018-07-11 20:00] VITALS: BP_SYST 121
[2018-07-11] MEDS: CLINDAMYCIN 600 MG in D5W 50 ML IV SCH (20:30)
[2018-07-11] MEDS: INSULIN GLARGINE 100 UNITS/ML 10 ML VIAL SUBCUT SCH (20:46)
[2018-07-11] MEDS ORDERED: VANCOMYCIN HCL 750 MG/NS 250 ML IV ONE (21:00)
[2018-07-12 00:13] VITALS: BP_SYST 111
[2018-07-12] MEDS: DIPHENHYDRAMINE INJ 50 MG/ML VIAL IVP PRN ×4 (02:13→19:58)
[2018-07-12] MEDS: HYDROmorphone 1 MG INJ. 1 MG/ML AMPUL IVP PRN ×6 (02:14→20:05)
[2018-07-12] MEDS: hydrALAZINE HCL 25 MG TABLET PO SCH ×3 (06:00→21:39)
[2018-07-12] MEDS: LABETALOL HCL 100 MG TABLET PO SCH ×3 (07:00→23:00)
[2018-07-12 07:06] LABS: BASOPHILS % (AUTO) 0.3 % (0.0-2.0); EOSINOPHILS # (AUTO) 0.1 K/uL (0.0-0.4); EOSINOPHILS % (AUTO) 0.8 % (0.0-4.0); HEMATOCRIT 27.7 % (36-48); HEMOGLOBIN 8.7 g/dL (12.0-16.0); LYMPHOCYTES # (AUTO) 1.4 K/uL (1.0-5.5); LYMPHOCYTES % (AUTO) 12.2 % (20.5-51.5); MEAN CORPUSCULAR HEMOGLOBIN 31 pg (27-31); MEAN CORPUSCULAR HGB CONC 32 % (32-36); MEAN CORPUSCULAR VOLUME 99 fL (79.0-98.0); MONOCYTES # (AUTO) 0.9 K/uL (0.0-1.0); MONOCYTES % (AUTO) 7.8 % (1.7-9.3); NEUTROPHILS % (AUTO) 78.9 % (40.0-70.0); PLATELET COUNT (AUTO) 218 K/uL (130-430); RED CELL DISTRIBUTION WIDTH 17.5 % (9.0-15.0); WHITE BLOOD COUNT (AUTO) 11.3 K/uL (4.8-10.8)
[2018-07-12 07:25] LABS: ALBUMIN 2.3 g/dL (3.4-4.8); CALCIUM 8.8 mg/dL (8.4-11.0); CREATININE 4.86 mg/dL (0.55-1.30); POTASSIUM 5.5 mmol/L (3.5-5.1); TOTAL BILIRUBIN 1.7 mg/dL (0.0-1.0)
[2018-07-12] MEDS: GABAPENTIN 300 MG CAPSULE PO SCH (08:07)
[2018-07-12] MEDS: CLINDAMYCIN 600 MG in D5W 50 ML IV SCH ×2 (08:08→20:05)
[2018-07-12 08:14] VITALS: BP_SYST 107
[2018-07-12 12:16] VITALS: BP_SYST 103
[2018-07-12 16:12] VITALS: BP_SYST 112
[2018-07-12] MEDS: BALSAM PERU/CASTOR OIL 60 GM OINT...G. TP SCH (16:14)
[2018-07-12] MEDS: MINERAL OIL/PETROLATUM,WHITE 113 GM CREAM.GM. TP SCH (16:14)
[2018-07-12 19:45] VITALS: BP_SYST 129
[2018-07-12] MEDS: INSULIN GLARGINE 100 UNITS/ML 10 ML VIAL SUBCUT SCH (21:00)
[2018-07-13] MEDS: BALSAM PERU/CASTOR OIL 60 GM OINT...G. TP SCH (00:15)
[2018-07-13] MEDS: DIPHENHYDRAMINE INJ 50 MG/ML VIAL IVP PRN ×5 (00:15→19:44)
[2018-07-13] MEDS: HYDROmorphone 1 MG INJ. 1 MG/ML AMPUL IVP PRN ×7 (00:16→19:49)
[2018-07-13 00:21] VITALS: BP_SYST 130
[2018-07-13] MEDS: MINERAL OIL/PETROLATUM,WHITE 113 GM CREAM.GM. TP SCH (00:30)
[2018-07-13] MEDS: hydrALAZINE HCL 25 MG TABLET PO SCH ×2 (06:00→13:37)
[2018-07-13] MEDS: LABETALOL HCL 100 MG TABLET PO SCH ×2 (06:18→14:51)
[2018-07-13 08:30] VITALS: BP_SYST 126
[2018-07-13] MEDS: GABAPENTIN 300 MG CAPSULE PO SCH (08:47)
[2018-07-13] MEDS: CLINDAMYCIN 600 MG in D5W 50 ML IV SCH (08:47)
[2018-07-13] MEDS: INSULIN REGULAR, HUMAN 100 UNITS/ML, 10 ML VIAL (novoLIN R) SUBCUT PRN ×2 (11:18→16:52)
[2018-07-13 12:13] VITALS: BP_SYST 115
[2018-07-13 16:00] VITALS: BP_SYST 112
[2018-07-13 20:00] VITALS: BP_SYST 134
[2018-07-28] MEDS ORDERED: LORA-259 PO (18:59)
== END 2018-07-13 19:57 | DRG 871 ==
LOC: SED 07:39 → SMU 09:56
PROVIDERS: ADMIT Specialist; ATTEND Specialist
PROC: 5A1D70Z Performance of Urinary Filtration, Intermittent, Less than 6 Hours Per Day (ICD-10-PCS; principal; 2018-07-05)
PROC: 5A1D70Z Performance of Urinary Filtration, Intermittent, Less than 6 Hours Per Day (ICD-10-PCS; 2018-07-07)
PROC: 5A1D70Z Performance of Urinary Filtration, Intermittent, Less than 6 Hours Per Day (ICD-10-PCS; 2018-07-08)
PROC: 5A1D70Z Performance of Urinary Filtration, Intermittent, Less than 6 Hours Per Day (ICD-10-PCS; 2018-07-11)
PROC: 5A1D70Z Performance of Urinary Filtration, Intermittent, Less than 6 Hours Per Day (ICD-10-PCS; 2018-07-13)
DX: A41.02 Sepsis due to Methicillin resistant Staphylococcus aureus (principal); N18.6 End stage renal disease; L03.116 Cellulitis of left lower limb; I13.2 Hypertensive heart and chronic kidney disease with heart failure and with stage 5 chronic kidney disease, or end stage renal disease; L02.416 Cutaneous abscess of left lower limb; L29.9 Pruritus, unspecified; E10.22 Type 1 diabetes mellitus with diabetic chronic kidney disease; E10.40 Type 1 diabetes mellitus with diabetic neuropathy, unspecified; G89.4 Chronic pain syndrome; K74.60 Unspecified cirrhosis of liver; I50.9 Heart failure, unspecified; D63.1 Anemia in chronic kidney disease; E10.21 Type 1 diabetes mellitus with diabetic nephropathy; E10.43 Type 1 diabetes mellitus with diabetic autonomic (poly)neuropathy; K31.84 Gastroparesis; Z79.4 Long term (current) use of insulin; Z99.2 Dependence on renal dialysis; Z88.8 Allergy status to other drugs, medicaments and biological substances; Z91.040 Latex allergy status; Z79.899 Other long term (current) drug therapy
CPT/HCPCS: 36415; 71045; 73590-TC; 73700-TC; 80048; 80053; 80202-TC; 82248-TC; 82962; 83605; 84100-TC; 84484; 85007; 85025; 85027; 85610-TC; 85730-TC; 87040-TC; 87070-TC; 87081; 87186-TC; 90935; 90937; 93005; 93971; 96365; 96367; 96368; 96375; 96376; 99291; J0780; J1170; J1200; J1815; J2543; J3010; J3370; J3490; J7030; J7050; J7060

== ENCOUNTER 2018-07-30 14:18 | Inpatient (IN) | payer OTHER ==
[~2018-07-30] VITALS: Ht 170.2 cm; Wt 75.5 kg
[2018-07-30 14:18] VITALS: BP_SYST 126
[~2018-07-30 14:18] MED LIST changes: +LORA-259 PO; -NIFE20CA PO
--- NOTE | 2018-07-30 14:18 | NUR ---
BROUGHT BACK BY WHEELCHAIR AND PLACED IN BED #6, TRIAGED. REPORT GIVEN TO NEVIN
--- NOTE | 2018-07-30 14:25 | NUR ---
Patient with a history of DM, Hepatic disease and Renal disease presented to the ED with Left leg pain. Patient has a history of cellulitis and was just discharged from [facility] on after a 3 week stay for cellulitis. Patient reported that Dr. Franklin informed her that she has a toe fracture on her left foot. She did not know which toe. She states that the pain radiates from her inner thigh to her feet. Patient has bilateral edematious swelling/cellulitis. She has a shunt in her right arm. Patient stated she was SOB, O2 read 100. Patient denies n/v/d. Patient states leg pain is 9/10. Patient is in lowest position in bed. A&Ox4.
--- NOTE | 2018-07-30 14:30 | NUR ---
Dr. Verduzco is at bedside assessing patient
[2018-07-30] MEDS ORDERED: VANCOMYCIN HCL 1,000 MG in D5W 250 ML IV ONE (15:15)
[2018-07-30] MEDS ORDERED: fentaNYL CITRATE/PF 100 MCG/2 ML AMP IVP ONE ×2 (15:15→16:15)
[2018-07-30] MEDS ORDERED: NACL 0.9% 1,000 ML IV ONE (15:15)
[2018-07-30] MEDS ORDERED: CLINDAMYCIN 300 MG in D5W 50 ML IV ONE (15:15)
[2018-07-30 15:28] LABS: CALCIUM 8.7 mg/dL (8.4-11.0); CREATININE 4.5 mg/dL (0.55-1.30); POTASSIUM 5.3 mmol/L (3.5-5.1)
[2018-07-30 15:30] LABS: BASOPHILS % (AUTO) 0.6 % (0.0-2.0); EOSINOPHILS # (AUTO) 0.2 K/uL (0.0-0.4); EOSINOPHILS % (AUTO) 3.3 % (0.0-4.0); HEMATOCRIT 28.6 % (36-48); HEMOGLOBIN 9.3 g/dL (12.0-16.0); LYMPHOCYTES # (AUTO) 1.4 K/uL (1.0-5.5); MEAN CORPUSCULAR HEMOGLOBIN 32 pg (27-31); MEAN CORPUSCULAR HGB CONC 32 % (32-36); MEAN CORPUSCULAR VOLUME 100 fL (79.0-98.0); MONOCYTES # (AUTO) 0.6 K/uL (0.0-1.0); MONOCYTES % (AUTO) 8.3 % (1.7-9.3); NEUTROPHILS # (AUTO) 4.7 K/uL (1.8-7.7); NEUTROPHILS % (AUTO) 67.8 % (40.0-70.0); PLATELET COUNT (AUTO) 217 K/uL (130-430); RED BLOOD CELL COUNT(AUTO) 2.86 MIL/uL (4.2-6.2)
[2018-07-30 15:33] LABS: ALBUMIN 3.2 g/dL (3.4-4.8)
[2018-07-30] MEDS ORDERED: LABETALOL 100 MG/ 20ML VIAL IVP PRN (16:00)
[2018-07-30] MEDS ORDERED: NS 500 ML IV ONE (16:00)
[2018-07-30] MEDS ORDERED: HYDROcodone/ACETAMIN 5-325 MG TAB (NORCO/ VICODIN) PO PRN (16:00)
--- NOTE | 2018-07-30 16:00 | NUR ---
Pt medicated for pain and abx givebn
[2018-07-30] MEDS ORDERED: VANCOMYCIN HCL 1000 MG/VIAL IV ONE (16:16)
[2018-07-30] MEDS ORDERED: CLINDAMYCIN PHOSPHATE 300 MG/2 ML VIAL ONE (16:16)
--- NOTE | 2018-07-30 17:29 | NUR ---
[facility] IV present no sign or symptom of infiltration.
--- NOTE | 2018-07-30 17:29 | NUR ---
ADMISSION NOTE Received patient from ER via jana, received report from YARED PATEL. Patient admitted with diagnosis of CELLULITIS. Patient oriented to hospital routine, call light, toileting and safety-patient verbalized understanding.
--- NOTE | 2018-07-30 17:29 | NUR ---
Patient will be admitted to care of admitting RN. Admitted to Medsurg unit. Will go to room 117. Belongings list completed. Summary report printed. Report will be given at bedside.
--- NOTE | 2018-07-30 17:30 | NUR ---
ID consult called: for Dr. Stearns (Dr. Arroyo occasional caregiver), regarding cellulitis, ordered by Dr. Wright, spoke with Karen.
[2018-07-30 17:40] VITALS: BP_SYST 147
--- NOTE | 2018-07-30 17:45 | NUR ---
Opening notes,' received pt from meg , pt is aaox4, c/o of 11/11 pain, will medicate, no sob, no distress. safety precaution in place, call light in reach, bed in low position. encouraged to call for assist and any concerns. will cont to monitor.
[2018-07-30] MEDS: HYDROmorphone 1 MG INJ. 1 MG/ML AMPUL IVP PRN (17:51)
--- NOTE | 2018-07-30 18:47 | NUR ---
place page for dr azul/flores for c/o itching.
--- NOTE | 2018-07-30 18:48 | NUR ---
PAGED I PAGED DR. FULLER @ [phone] I SPOKE WITH TONIA ALVAREZ RABBIT BREEDER AT THIS MOMENT DR. ALVAREZ CALLED BACK @ [phone]
[2018-07-30 19:00] VITALS: BP_SYST 148
--- NOTE | 2018-07-30 19:01 | NUR ---
Arcadio johnson in ED - 07/30/18 at 1903 by AMANDAVS Transfer to Med-surg IV present no signs or symptoms of infiltration.
--- NOTE | 2018-07-30 19:20 | NUR ---
closing notes, pt has been stable, had pain relief from pain medication. endorsed to night rn.
[2018-07-30 20:00] VITALS: BP_SYST 148
[2018-07-30] MEDS: NORMAL SALINE 5 ML DISP.SYRIN IVF SCH (22:20)
[2018-07-30] MEDS: HYDROmorphone 2 MG/ML VIAL IVP PRN (22:31)
[2018-07-30] MEDS: DIPHENHYDRAMINE INJ 50 MG/ML VIAL IVP PRN (22:50)
[2018-07-30] MEDS ORDERED: NIFEDIPINE 60 MG TABLET.SA (PROCARDIA XL 60 MG) PO SCH (23:30)
[2018-07-31] MEDS: LORazepam 2 MG/ML VIAL IVP PRN ×2 (00:05→15:45)
[2018-07-31] MEDS: NIFEDIPINE 30 MG TAB.ER.24 PO SCH ×2 (00:12→09:30)
[2018-07-31] MEDS ORDERED: NIFEDIPINE 90 MG TABLET.SA (PROCARDIA XL 90 MG) PO ONE (00:21)
[2018-07-31] MEDS: HYDROmorphone 2 MG/ML VIAL IVP PRN ×5 (04:53→23:45)
[2018-07-31] MEDS: DIPHENHYDRAMINE INJ 50 MG/ML VIAL IVP PRN ×4 (04:55→23:12)
[2018-07-31] MEDS: NORMAL SALINE 5 ML DISP.SYRIN IVF SCH ×3 (05:44→20:49)
[2018-07-31 06:44] LABS: ALBUMIN 2.9 g/dL (3.4-4.8); CALCIUM 8.7 mg/dL (8.4-11.0); CREATININE 4.94 mg/dL (0.55-1.30); POTASSIUM 5.7 mmol/L (3.5-5.1)
--- NOTE | 2018-07-31 06:45 | NUR ---
pt.presents to [facility] c/o pain:lower extremities;lt>rt.pt's admit dx;cellulits;lower extremities.pt.presents scabs;x2:location lt.foot.i have attended top the wound care.i have placed the order;wcn.pt.presents hx;hemo-dialysis.pt.presents av-shunt; rt.forearm.pt.presents hx;diabetic.i paged ;anderew i apprioded tatianna the pt.is diabetic no blood glucose schedule had been ordered,the med-reconciliation had not been atedn to. stated will med-reconciliation:in am;07/31/18. re;htn hx.lamonte ordered procardia:xl 90mg po daily:initial dose 07/30/18.blood glucose;ac/hs w/sliding scale coverage parameters;novolog.insulin.i have assessed the blood glucose x2.w/in the shift.pt.has requested medication pain.i have administered dilaudid;2mg ivp x2 doses.pt.had requested ativan.i have administer ativan:1mg ivp i have administer procardia:xl;90mg po initial dose @0000a.pt.presetsfx;lt.foot;toe.pt/prestyn w/ ortho-boot.lt.leg.pt.ambulatory.pt.had requested bsc;to accommodate and facilitate bathroom necessities;pt.presents hemo-dialysis:hx:pt's schedule;.pt.is to be dialized this am;07/31/18: to write the order.i have proved snacks/beverages to the opt.i have weighed the pt.this am.mrsa screen;jose attended to.no consent hemo-dialysis available:2/t to write the order for hemo-dialysis.call light/telephone placed w/in the reach of the pt.
[2018-07-31 06:52] LABS: BASOPHILS % (AUTO) 0.7 % (0.0-2.0); EOSINOPHILS # (AUTO) 0.3 K/uL (0.0-0.4); EOSINOPHILS % (AUTO) 4.7 % (0.0-4.0); HEMATOCRIT 27.8 % (36-48); LYMPHOCYTES # (AUTO) 1.9 K/uL (1.0-5.5); MEAN CORPUSCULAR HEMOGLOBIN 32 pg (27-31); MEAN CORPUSCULAR HGB CONC 32 % (32-36); MEAN CORPUSCULAR VOLUME 99 fL (79.0-98.0); MONOCYTES # (AUTO) 0.7 K/uL (0.0-1.0); MONOCYTES % (AUTO) 10.1 % (1.7-9.3); NEUTROPHILS # (AUTO) 3.6 K/uL (1.8-7.7); NEUTROPHILS % (AUTO) 55.5 % (40.0-70.0); PLATELET COUNT (AUTO) 198 K/uL (130-430); RED CELL DISTRIBUTION WIDTH 17.7 % (9.0-15.0); WHITE BLOOD COUNT (AUTO) 6.5 K/uL (4.8-10.8)
--- NOTE | 2018-07-31 07:00 | NUR ---
Nutrition Update Davey Scale 18 noted. Pt admitted for Cellulitis Diet: 2gm Na BMI: 23.4 kg/m2 RD to follow per nutrition care standards.
--- NOTE | 2018-07-31 07:30 | NUR ---
AM ROUNDS: PATIENT SLEEPING DURING ROUNDS. CALL LIGHT WITH IN REACH. BED LOCKED AT LOWEST POSITION. BED ALARM ON. CONTINUE TO MONITOR.
[2018-07-31 08:21] VITALS: BP_SYST 121
--- NOTE | 2018-07-31 09:46 | NUR ---
CONSULTATION PAGED/CALLED Reason for Consultation: CELLULITIS Person Who was Notified: SPOKE WITH NICOLE FROM OFFICE Consulting Physician: [employer]or Center Technician Specialty: ID Ordering Physician: DAGOBERTO SIMONS
[2018-07-31] MEDS ORDERED: VANCOMYCIN HCL 1,500 MG in NS 250 ML IV ONE (10:00)
--- NOTE | 2018-07-31 10:44 | NUR ---
HD: HD STARTED BY PERAZA. NO DISTRESS.
--- NOTE | 2018-07-31 11:30 | NUR ---
ACCU CHECK: BLOOD SUGAR TAKEN,NO INSULIN NEEDED PER SLIDING SCALE.
[2018-07-31 12:16] VITALS: BP_SYST 100
--- NOTE | 2018-07-31 13:44 | NUR ---
HD FINISHED: HD DONE. NO PROBLEM. HD OUT=2 LITERS.
[2018-07-31] MEDS ORDERED: NIFEDIPINE 90 MG TABLET.SA (PROCARDIA XL 90 MG) PO SCH (14:01)
[2018-07-31 16:32] VITALS: BP_SYST 101
--- NOTE | 2018-07-31 16:52 | NUR ---
WOUND EVALUATION: Wound Consult received from Dr. Wright. Thank you, Dr. Wright, for the consult. Patient received in a Mani Bed with an IsoFlex STACY mattress, asleep, easily awoken, alert, and oriented. Patient is able to turn independently. Davey Score is an 18. Past Medical History: Diabetes mellitus, End-Stage Renal Disease on Hemodialysis, Ascites, Hypertension, Chronic Pain/chronic pain medication dependency, Cirrhosis, Appendectomy, Cholecystectomy lower extremity cellulitis, Anemia of Chronic Disease. Recent Labs: WBC 6.5, RBC 2.80, hemoglobin 9.0, hematocrit 27.8, sodium 130, potassium 5.7, chloride 97, BUN 46, creatinine 4.94, GFR 11, glucose 112, albumin 2.9. Microbiology: Blood culture results 2 in progress. MRSA screen results in progress. Intrinsic factors that delay wound healing: Diabetes mellitus, End-Stage Renal Disease, Cirrhosis. Extrinsic factors that delay wound healing: Decreased mobility. Wound Assessment: 1. Left distal anterior byrnes: Wound (prior bulla that opened), present on admission. Wound bed has 100% pink tissue. No odor, small serous drainage. Periwound intact. Wound measures 0.9 cm x 1.8 cm. 2. Left dorsal foot: Wound (prior bulla that opened), present on admission. Wound bed has 95% red tissue, 5% yellow tissue. No odor, scant serous drainage. Periwound intact. Wound measures 0.9 cm x 0.6 cm. 3. Left distal lateral posterior calf: Wound (prior bulla that opened), present on admission. Wound bed has 100% pink tissue. No odor, scant serous drainage. Periwound intact. Wound measures 2.5 cm x 3.0 cm. Recommend: Cleanse wounds with normal saline. Apply moisture barrier cream to adore-wounds. Apply Hydrogel to wound beds. Cover with foam dressings. Perform wound care daily, and as needed for dressing soiling or dislodgement. 4. Left medial ankle: Chronic wound, present on admission. Wound bed has 100% next scab. No odor, no drainage. Periwound intact. Recommend: Cover site with foam dressing for protection. Change dressing daily. 5. Left Second Toe (Nail Bed): Area of scant sanguineous drainage, no wound bed visible, present on admission. No odor, scant sanguineous drainage. Periwound intact. Recommend: Cleanse site with normal saline. Apply moisture barrier cream to site. Cover with foam dressing. Wrap with Kota wrap. Perform wound care daily, and as needed for dressing soiling or dislodgement. Also recommend: Encourage and assist patient as needed with repositioning every 2 hours with pillow support, and off-load pressure areas with pillows for pressure re-distribution. Offload, elevate and float left lower extremity with pillows. Perform skin care and monitor skin integrity Q shift. Use moisture barrier cream on buttocks and other moisture susceptible areas QID and as needed for soiling.
[2018-07-31] MEDS: INSULIN ASPART 100 UNITS/ML, 10 ML VIAL (NovoLOG) SUBCUT PRN (17:37)
--- NOTE | 2018-07-31 17:44 | NUR ---
ACCU CHECK: BLOOD BKCQC=301AA/DL,PATIENT REFUSED INSULIN SHOT. NOTIFIED.
[2018-07-31] MEDS ORDERED: *CUBICIN 4 MG/KG Q48H/PHARMACY XX PRN (18:15)
--- NOTE | 2018-07-31 18:28 | NUR ---
END OF SHIFT: PATIENT COMFORTABLE THIS TIME. CALL LIGHT WITH IN REACH. BED LOCKED AT LOWEST POSITION. BED ALARM ON. STABLE.
[2018-07-31 19:38] VITALS: BP_SYST 87
--- NOTE | 2018-07-31 19:38 | NUR ---
Opening notes Received report. Patient laying in bed. No signs of distress noted. Patient's blood pressure is 87/80. Patient is alert and orient. No dizziness noted. Will continue to monitor. Call light with the patient. Safety precautions in place.
[2018-07-31 20:48] VITALS: BP_SYST 82
[2018-07-31] MEDS: NS IV SCH (20:48)
[2018-07-31] MEDS: MUPIROCIN 2% TOPICAL OINTMENT 22 GM NS SCH (20:48)
[2018-07-31] MEDS: DAPTOMYCIN IV SCH (20:48)
--- NOTE | 2018-07-31 20:48 | NUR ---
Blood pressure check BP 82/49. Patient is alert and orient. No dizziness noted. Blood sugar 181. Patient refused insulin coverage. Will inform .
--- NOTE | 2018-07-31 21:15 | NUR ---
PAGED PAGED DOCTOR RYLAN HENDRIX IS MATRIX INSPECTOR
--- NOTE | 2018-07-31 21:20 | NUR ---
Dr. Alas called back Informed doctor patients recent blood pressure of 87/50 and 82/49. No new orders inputted, and to monitor the patient. Informed charge nurse.
--- NOTE | 2018-07-31 22:30 | NUR ---
BP/Pain Patient complains of severe pain. Patient's BP 94/50. Offered patient Vicodin PO. Patient refused. Will continue to monitor patient's BP. Provided patient with orange juice per patient request. Call light with the patient. Safety precautions in place.
--- NOTE | 2018-07-31 23:45 | NUR ---
Pain medication prn pain medication given. Educated the action and side effects of medication. Patient verbalized understanding and tolerated well. No signs of allergic reaction noted. BP at this time is 123/72. Will continue to monitor.
[2018-08-01] VITALS: BP_SYST 104
[2018-08-01] MEDS: LORazepam 2 MG/ML VIAL IVP PRN ×2 (02:24→19:31)
--- NOTE | 2018-08-01 02:28 | NUR ---
Anxious Patient anxious and keeps scratching back. PRN anxiety medication given. Educated the action and side effects of medication. Patient verbalized understanding and tolerated well. No signs of allergic reaction noted. No other needs at this time. Call light with the patient. Safety precautions in place.
[2018-08-01] MEDS: HYDROmorphone 2 MG/ML VIAL IVP PRN ×5 (03:45→21:14)
--- NOTE | 2018-08-01 04:02 | NUR ---
PRN pain medication given, patient refuses wound care at this time and to come back in one hour. No other needs. Call light with the patient. Safety precautions in place.
[2018-08-01] MEDS: NORMAL SALINE 5 ML DISP.SYRIN IVF SCH ×3 (05:24→21:18)
[2018-08-01] MEDS: DIPHENHYDRAMINE INJ 50 MG/ML VIAL IVP PRN ×4 (05:25→23:00)
--- NOTE | 2018-08-01 06:31 | NUR ---
Closing notes Patient resting in bed. Wound care done. Aerobic culture of wound on left leg collected and sent to lab. No signs of distress noted. Breathing even and unlabored. All needs met throughout the shift. Call light with the patient. Safety precautions in place. Will endorse care to day shift RN.
--- NOTE | 2018-08-01 07:20 | NUR ---
AM ROUNDS: PATIENT SLEEPING DURING ROUNDS. REPORT GIVEN BY NIGHT NURSE AUREA. CALL LIGHT WITH IN REACH. BED LOCKED AT LOWEST POSITION. BED ALARM ON. NO DISTRESS.
[2018-08-01 08:03] VITALS: BP_SYST 102
--- NOTE | 2018-08-01 08:21 | NUR ---
pain meds: c/o left leg pain and due iv dilaudid given per request. no adverse reactions noted.
[2018-08-01] MEDS: MUPIROCIN 2% TOPICAL OINTMENT 22 GM NS SCH ×2 (09:00→21:00)
--- NOTE | 2018-08-01 11:12 | NUR ---
ACCU CHECK: BLOOD SUGAR TAKEN,NO INSULIN NEEDED PER SLIDING SCALE.
--- NOTE | 2018-08-01 11:12 | NUR ---
BENADRYL IV: C/O ITCHING,DUE IV BENADRYL GIVEN PER REQUEST. NO PROBLEM.
[2018-08-01 11:39] VITALS: BP_SYST 112
--- NOTE | 2018-08-01 13:03 | NUR ---
PAIN MEDS: C/O LEFT LEG PAIN AND DUE IV PAIN MEDS GIVEN PER REQUEST. NO PROBLEM.
--- NOTE | 2018-08-01 14:28 | NUR ---
Dietitian Recommendations * Recommend renal, CCHO diet w/ Nepro BID (ONS provides an additional 850 kcal/day and 38 gm protein/day) LP, RD Please refer to Nutrition Assessment for details.
[2018-08-01 15:10] VITALS: BP_SYST 113
--- NOTE | 2018-08-01 17:11 | NUR ---
ACCU CHECK : BLOOD SUGAR TAKEN,NO INSULIN NEEDED PER SLIDING SCALE.
--- NOTE | 2018-08-01 17:11 | NUR ---
PAIN MEDS: C/O LEFT LEG PAIN AND DUE IV PAIN MEDS GIVEN PER REQUEST. NO PROBLEM.
--- NOTE | 2018-08-01 17:12 | NUR ---
ITCHING: DUE IV BENADRYL GIVEN PER REQUEST FOR ITCHING. STABLE.
--- NOTE | 2018-08-01 18:57 | NUR ---
END OF SHIFT: PATIENT COMFORTABLE. CALL LIGHT WITH IN REACH. BED LOCKED AT LOWEST POSITION. BED ALARM ON. CONDITION GUARDED.
[2018-08-01 19:35] VITALS: BP_SYST 114
--- NOTE | 2018-08-01 19:45 | NUR ---
Opening notes Received report. Patient resting in bed and is anxious. VSS. PRN anxiety medication given. Educated the action and side effects of medication. Patient verbalized understanding and tolerated well. No signs of allergic reaction noted. No other needs at this time. Call light with the patient. Safety precautions in place.
--- NOTE | 2018-08-01 21:15 | NUR ---
Pain PRN pain medication given. Educated the action and side effects of medication. Patient verbalized understanding and tolerated well. No signs of allergic reaction. Provided patient with blanket. No other needs at this time. Call light with the patient. Safety precautions in place.
--- NOTE | 2018-08-01 23:00 | NUR ---
Itching Patient complains of itchiness throughout body. PRN benadryl given. Educated the action and side effects of medications. Patient verbalized understanding and tolerated well. No signs of allergic reaction noted. Call light with the patient. Safety precautions in place.
[2018-08-01 23:15] VITALS: BP_SYST 126
--- NOTE | 2018-08-02 01:15 | NUR ---
Pain Patient complain of pain. PRN pain medication. Educated action and side effects of medication. Patient verbalized understanding. Offered patient to do wound care at this time. Patient states to come back in one hour.
[2018-08-02] MEDS: HYDROmorphone 2 MG/ML VIAL IVP PRN ×6 (01:19→22:06)
--- NOTE | 2018-08-02 02:30 | NUR ---
Patient refuses wound care at this time.
[2018-08-02] MEDS: DIPHENHYDRAMINE INJ 50 MG/ML VIAL IVP PRN ×2 (05:16→19:31)
[2018-08-02] MEDS: NORMAL SALINE 5 ML DISP.SYRIN IVF SCH ×3 (05:16→20:57)
--- NOTE | 2018-08-02 05:30 | NUR ---
Pain meds/Wound care PRN pain medications given. Patient tolerated well. No signs of allergic reaction noted. Wound care done and photographs taken.
--- NOTE | 2018-08-02 06:34 | NUR ---
Closing notes Patient sitting at the edge of bed eating jello. Accucheck 118. No insulin coverage necessary. Provided patient with blanket. No other needs at this time. Call light with the patient. Safety precautions in place. Will endorse care to day shift RN.
[2018-08-02 07:55] VITALS: BP_SYST 145
--- NOTE | 2018-08-02 08:00 | NUR ---
initial notes rec patient asleep but arousable to stimuli. ivl intact and no infiltration noted. resp easy and unlabored. no sob noted. bed to the lowest position and side rails up and locked. call light within reached and knows when to call for assistance.
[2018-08-02] MEDS: MUPIROCIN 2% TOPICAL OINTMENT 22 GM NS SCH ×2 (09:37→20:57)
--- NOTE | 2018-08-02 10:00 | NUR ---
rounds due meds given as ordered. sleeps at intervals. call light within reached.
[2018-08-02] MEDS: DAPTOMYCIN IV SCH ×2 (11:00→20:56)
[2018-08-02] MEDS: NS IV SCH ×2 (11:00→20:56)
--- NOTE | 2018-08-02 12:00 | NUR ---
rounds no hypo hyperglycemic reaction noted. bed to the lowest position. call light within reached.
[2018-08-02 12:34] VITALS: BP_SYST 122
--- NOTE | 2018-08-02 14:00 | NUR ---
rounds woke and requesting pain med and was given. no sob noted. call light within reached.
[2018-08-02 16:18] VITALS: BP_SYST 147
--- NOTE | 2018-08-02 17:30 | NUR ---
rounds no hypo hyperglycemic noted. sleeps at intervals. no sob noted. call light within reached.
[2018-08-02 19:30] VITALS: BP_SYST 145
--- NOTE | 2018-08-02 19:37 | NUR ---
NURSE PERAZA AT BEDSIDE
[2018-08-02] MEDS: LORazepam 2 MG/ML VIAL IVP PRN (20:58)
--- NOTE | 2018-08-02 22:11 | NUR ---
MED PASS PT REPORTS 9/10 SHOOTING LEFT FOOT PAIN, PRN DILAUDID 2MG IVP ADMINISTERED ORDERED FOR SEVERE PAIN. PT TOLERATED WELL. WILL MONITOR MEDICATION EFFECTIVENESS. NO OTHER NEEDS AT THIS TIME. NURSE PERAZA AT BEDSIDE. SAFETY MEASURES IN PLACE. WILL CONTINUE PT'S POC.
--- NOTE | 2018-08-03 00:25 | NUR ---
HEMODIALYSIS COMPLETE 2.6L REMOVED
[2018-08-03] MEDS: LORazepam 2 MG/ML VIAL IVP PRN ×4 (01:08→13:35)
[2018-08-03 01:54] VITALS: BP_SYST 152
[2018-08-03] MEDS: HYDROmorphone 2 MG/ML VIAL IVP PRN ×6 (02:08→22:34)
[2018-08-03] MEDS: DIPHENHYDRAMINE INJ 50 MG/ML VIAL IVP PRN ×4 (02:11→21:09)
--- NOTE | 2018-08-03 02:32 | NUR ---
RN ROUNDS PT RESTING IN BED WITH EYES CLOSED. NO SOB NOTED. NO DISTRESS NOTED. CHEST RISE EVEN AND UNLABORED. NO S/S OF PAIN NOTED. NO NEEDS AT THIS TIME. SAFETY MEASURES IN PLACE. WILL CONTINUE TO MONITOR PT AND CONTINUE PT'S POC.
[2018-08-03] MEDS: HYDROmorphone 1 MG INJ. 1 MG/ML AMPUL IVP PRN (04:20)
--- NOTE | 2018-08-03 04:27 | NUR ---
MED PASS PT REPORTS 6/10 PAIN TO LEFT FOOT, PRN DILAUDID 1 MG IVP ADMINISTERED ORDERED FOR PAIN. PT TOLERATED WELL. WILL MONITOR MEDICATION EFFECTIVENESS. SAFETY MEASURES IN PLACE. WILL CONTINUE TO MONITOR PT.
[2018-08-03] MEDS: NORMAL SALINE 5 ML DISP.SYRIN IVF SCH ×3 (06:27→21:20)
--- NOTE | 2018-08-03 06:32 | NUR ---
BS 113, NO COVERAGE NEEDED PER SLIDING SCALE
--- NOTE | 2018-08-03 06:56 | NUR ---
CLOSING NOTE PT RESTING IN BED. NO SOB NOTED. NO DISTRESS NOTED. CHEST RISE EVEN AND UNLABORED. NO S/S OF PAIN NOTED. PT DENIES PAIN AT THIS TIME. PAIN MANAGED THROUGHOUT NIGHT. ALL NEEDS MET THROUGHOUT SHIFT. SAFETY MEASURES IN PLACE THROUGHOUT SHIFT. NO NEEDS AT THIS TIME. WILL ENDORSE PT CARE TO DAY NURSE AT BEDSIDE.
--- NOTE | 2018-08-03 07:25 | NUR ---
Opening Note: Patient in bed asleep/ No signs of pain or discomfort. Breathing is even and unlabored with no distress noted. IV patent and intact, no sign of infiltration noted. Isolation precautions in place. Safety precautions in place; bed in lowest position, wheels locked, side rails x3, bed alarm activated and call light within reach. No needs at this time. Will continue to monitor.
[2018-08-03 08:09] VITALS: BP_SYST 156
[2018-08-03] MEDS: MUPIROCIN 2% TOPICAL OINTMENT 22 GM NS SCH ×2 (08:12→21:00)
--- NOTE | 2018-08-03 09:35 | NUR ---
Wound Care: Wound care done to left lower extremity, per wound care orders. Patient tolerated well.
--- NOTE | 2018-08-03 12:02 | NUR ---
Rounds: Patient in bed asleep. No signs of pain or discomfort noted. No signs of SOB or respiratory distress. Morning medications tolerated well. Isolation precautions in place. Safety precautions in place and call light within reach. Will continue to monitor.
[2018-08-03 12:41] VITALS: BP_SYST 117
--- NOTE | 2018-08-03 14:35 | NUR ---
Rounds: Lotion applied to bilateral lower extremities. Patient encouraged to stop itching. Will continue to monitor.
--- NOTE | 2018-08-03 16:22 | NUR ---
Rounds: Patient in bed asleep. NO distress noted. Isolation precautions in place. Safety precautions in place and call light within reach. No needs at this time. Will continue to monitor.
[2018-08-03 16:44] VITALS: BP_SYST 153
--- NOTE | 2018-08-03 18:55 | NUR ---
Closing Note: Patient in bed resting. Patient medicated for pain, will reassess. Breathing is even and unlabored with no distress noted. IV patent and intact and saline locked. Isolation precautions in place. Safety precautions in place; bed in lowest position, wheels locked, side rails x3, bed alarm activated and call light within reach. All needs met. Will endorse plan of care to NOC, nurse.
--- NOTE | 2018-08-03 19:20 | NUR ---
Opening notes Received report. Patient resting comfortably in bed. No signs of distress noted. Breathing is even and unlabored. IV patent and intact, no signs of infiltration noted. No needs at this time. Call light with the patient. Safety precautions in place.
[2018-08-03 20:00] VITALS: BP_SYST 116
--- NOTE | 2018-08-03 21:30 | NUR ---
ITCHY Patient scratching herself. PRN benadryl given. Educated the action and side effects of medication. Patient verbalized understanding. Accucheck done. No insulin per sliding scale. Provided patient with jello. No other needs at this time. Call light with the patient. Safety precautions in place.
--- NOTE | 2018-08-03 22:45 | NUR ---
Pain Patient complains of 10/10 pain. PRN pain medication given. Educated the action and side effects of medication. Patient verbalized understanding. No allergic reaction noted. Lights turned off per patient request. No other needs. Call light with the patient. Safety precautions in place.
--- NOTE | 2018-08-03 23:59 | NUR ---
Patient called for pain med Informed patient she had received pain medications one hour ago. Patient verbalized understanding and states she will wait until it is due. No other needs. Patient went back to sleep. Call light with the patient. Safety precautions in place.
[2018-08-04 00:21] VITALS: BP_SYST 153
[2018-08-04] MEDS: LORazepam 2 MG/ML VIAL IVP PRN ×4 (01:03→21:27)
--- NOTE | 2018-08-04 01:43 | NUR ---
Crying Patient heard crying. PRN ativan given. Educated the action and side effect of medication. Patient verbalized understanding. No signs of allergic reaction. No other needs at this time. Call light with the patient. Safety precautions in place.
--- NOTE | 2018-08-04 02:30 | NUR ---
Pain PRN pain medication given. Patient tolerated well. No signs of allergic reaction noted. Safety precautions in place.
[2018-08-04] MEDS: HYDROmorphone 2 MG/ML VIAL IVP PRN ×6 (02:31→22:33)
[2018-08-04] MEDS: DIPHENHYDRAMINE INJ 50 MG/ML VIAL IVP PRN ×4 (04:50→22:34)
--- NOTE | 2018-08-04 05:23 | NUR ---
IV RE-INSERTION: IV on LFA difficult to flush. Restarted on left antecubital 22 g. Successful after 1 attempts. Will observe for any signs of infiltration.
[2018-08-04] MEDS: NORMAL SALINE 5 ML DISP.SYRIN IVF SCH ×3 (06:00→21:24)
--- NOTE | 2018-08-04 06:40 | NUR ---
Closing notes Patient sitting at edge of bed. Encouraged patient to stop scratching. Gave prn pain medication. Patient tolerated well. No signs of allergic reaction. IV patent and intact, saline locked. All needs met throughout the shift. Call light with the patient. Safety precautions in place. Will endorse care to day shift RN.
[2018-08-04 06:56] LABS: CALCIUM 8.6 mg/dL (8.4-11.0); CREATININE 5.09 mg/dL (0.55-1.30)
--- NOTE | 2018-08-04 07:37 | NUR ---
Opening Note: Patient in bed resting. No signs of pain or discomfort. Breathing is even and unlabored with no distress noted. Patient restless and agitated, patient states shes uncomfortable, will administer PRN Ativan per MD orders and reassess. IV patent and intact, no sign of infiltration noted. Isolation precautions in place. Safety precautions in place; bed in lowest position, wheels locked, side rails x3, bed alarm activated and call light within reach. No needs at this time. Will continue to monitor.
[2018-08-04] MEDS: MUPIROCIN 2% TOPICAL OINTMENT 22 GM NS SCH ×2 (07:58→21:00)
[2018-08-04 08:05] VITALS: BP_SYST 156
[2018-08-04] MEDS: INSULIN ASPART 100 UNITS/ML, 10 ML VIAL (NovoLOG) SUBCUT PRN ×3 (11:45→21:28)
--- NOTE | 2018-08-04 11:46 | NUR ---
Accucheck: Blood sugar 156, patient refused 2 units of coverage per sliding scale. Education given.
--- NOTE | 2018-08-04 11:55 | NUR ---
Rounds: Patient in bed resting, barber or beauty shop manager at bedside. No signs of pain or discomfort noted. No signs of SOB or respiratory distress. Morning medications tolerated well. Isolation precautions in place. Safety precautions in place and call light within reach. Will continue to monitor.
[2018-08-04 12:37] VITALS: BP_SYST 141
--- NOTE | 2018-08-04 13:56 | NUR ---
CONSULTATION PAGED REASON FOR CONSULTATION:RT FOOT FRACTURE WAS CONSULT CALLED?Y PERSON WHO WAS NOTIFIED:JUS CONSULTING PHYSICIAN:JOSE GUADALUPE MORA (ZAKIYA JENKINS CYBER SYSTEMS ADMINISTRATOR) THEATER USHER SPECIALTY:ORTHO THEATER USHER PHONE NUMBER:[phone] ([phone]) ORDERING PHYSICIAN:SANIA CMPHERSON
[2018-08-04] MEDS ORDERED: PRAMOXINE HCL/CALAMINE 180 ML LOTION TP PRN (14:00)
[2018-08-04] MEDS: HYDROCORTISONE SOD SUCC 100 MG/2 ML VIAL IVP SCH ×2 (14:40→21:24)
--- NOTE | 2018-08-04 14:59 | NUR ---
Patient refusing Wound Care: Patient offered wound care to left lower extremity x2, per patient "No thanks, I don't want it now, I'll let you know when to change them." Will endorse to next shift if patient continues to refuse on my shift.
--- NOTE | 2018-08-04 16:12 | NUR ---
Rounds: Patient in bed resting. No distress noted. Isolation precautions in place. Safety precautions in place and call light within reach. No needs at this time. Will continue to monitor.
[2018-08-04 16:40] VITALS: BP_SYST 134
--- NOTE | 2018-08-04 17:01 | NUR ---
Accucheck: Blood sugar 182, patient refused coverage per sliding scale. Stated "I don't take insulin if it's less than 200." Education given.
--- NOTE | 2018-08-04 17:04 | NUR ---
Itching: Patient itching lower legs and bilateral arms. PRN Benadryl given, will reassess. Patient has multiple cute on left lower leg and a cut on right hand from itching. Lotion applied to dry skin area that are not open and patient encouraged to stop itching.
--- NOTE | 2018-08-04 18:47 | NUR ---
Closing Note: Patient in bed resting. Patient medicated for pain, will reassess. Breathing is even and unlabored with no distress noted. IV patent and intact and saline locked. Safety precautions in place; bed in lowest position, wheels locked, side rails x3, bed alarm activated and call light within reach. All needs met. Will endorse plan of care to NOC, nurse.
--- NOTE | 2018-08-04 19:07 | NUR ---
OPENING NOTES Late entry due to patient care. Bedside report received from dayshift nurse. Patient in bed, awake, alert, AOx4, no s/s of acute distress noted. Patient asked when her pain medication was due again, patient made aware that last dose given at 1835 and that next dose is for 2234, patient verbalized understanding. Breathing is even and unlabored. No signs of active bleeding noted. IV site patent, no signs of infection or infiltration noted. Call light with patient. Bed is locked and at lowest position. Will continue to monitor.
[2018-08-04 20:00] VITALS: BP_SYST 155
[2018-08-04] MEDS: DOXYCYCLINE HYCLATE 100 MG CAPSULE PO SCH (21:23)
--- NOTE | 2018-08-04 21:28 | NUR ---
REFUSED BACTROBAN/REFUSED DRESSING CHANGE/REFUSED INSULIN/HIGH SUGAR Patient refused Bactroban and Novolog. Patient's BS at 349. Patient encouraged and educated on purpose of insulin, patient verbalized understanding and still refused it, stating," My sugar usually goes down at night anyway". Patient was made aware that her dressing on her left leg will need to be changed within the shift, patient refused also. Patient stated that it hurts when you take off the dressing. Patient made aware that it can be timed a few minutes after Dilaudid is given to reduce pain. Patient stated that she just wants to rest tonight. Will continue to encourage throughout shift.
--- NOTE | 2018-08-04 22:33 | NUR ---
PAIN/REFUSED DRESSING CHANGE Patient complained of 8/10 bilateral lower extremity pain. Dilaudid administered per PRN order. Patient asked if dressing can be changed , patient still refuses at this time. Call light with patient. All needs met at this time. Will continue to monitor.
[2018-08-05] VITALS: BP_SYST 152
--- NOTE | 2018-08-05 00:30 | NUR ---
ROUNDS Patient in bed sleeping. No s/s of acute distress noted. Breathing even and unlabored. Call light with patient. Will continue to monitor.
[2018-08-05] MEDS: HYDROmorphone 2 MG/ML VIAL IVP PRN ×6 (02:30→22:54)
--- NOTE | 2018-08-05 02:30 | NUR ---
PAIN/REFUSES DRESSING CHANGE Patient complained of 9/10 left foot pain. Dilaudid administered per PRN order. Patient was encouraged to have dressings changed, but refused. Patient stated that she wants to wait until morning. Will continue to encourage. Call light with patient. All needs met at this time. Will continue to monitor.
[2018-08-05] MEDS: LORazepam 2 MG/ML VIAL IVP PRN ×4 (02:32→21:15)
[2018-08-05] MEDS: DIPHENHYDRAMINE INJ 50 MG/ML VIAL IVP PRN ×4 (04:25→20:27)
--- NOTE | 2018-08-05 04:30 | NUR ---
ROUNDS/ITCHING Patient complains of itchiness. Benadryl administered per PRN order. Patient in bed resting at this time. No sign of discomfort noted. Chest rise and fall even bilaterally. Call light with patient. Will continue to monitor.
--- NOTE | 2018-08-05 06:11 | NUR ---
PAIN/CLOSING NOTES Patient in bed complaining of 8/10 left foot pain. Dilaudid will be administered per PRN order. Breathing is even and unlabored. Dressings intact. No active bleeding noted. IV site patent, no signs of infiltration or infection noted. All needs met throughout shift. Fall and safety precautions maintained throughout shift. Will continue to monitor until patient care is endorsed to oncoming dayshift nurse.
[2018-08-05] MEDS: HYDROCORTISONE SOD SUCC 100 MG/2 ML VIAL IVP SCH ×3 (06:29→21:14)
[2018-08-05 06:30] LABS: CALCIUM 9.1 mg/dL (8.4-11.0); CREATININE 4.44 mg/dL (0.55-1.30)
[2018-08-05] MEDS: NORMAL SALINE 5 ML DISP.SYRIN IVF SCH ×3 (06:38→21:14)
--- NOTE | 2018-08-05 06:47 | NUR ---
PAGED PAGED AT [phone] SPOKE WITH SHEY SIMONS BEAM MACHINE OPERATOR.
[2018-08-05] MEDS: INSULIN Lispro 100 UNITS/ML VIAL (humaLOG) SUBCUT SCH ×4 (06:48→20:25)
[2018-08-05 07:08] LABS: POTASSIUM 6.7 mmol/L (3.5-5.1)
[2018-08-05 08:00] VITALS: BP_SYST 158
--- NOTE | 2018-08-05 08:00 | NUR ---
INITIAL ROUNDS/MD Received pt AAOx4, no s/s resp distress, pt c/o pain to right foot-will give due pain medication, noted pt bleeding from both big toes, noted BLE edema. Dr. Membreno here to see patient, dressings removed. Pt instructed to keep her feet elevated to help decrease the bleeding-pt stated she will try. Note RAC AV shunt, + bruit, + thrill. New dressings placed, fresh gown and linens placed, BLE elevated on pillow. Plan of care for the day reviewed with pt-pt verbalized her understanding. Pain management, disease process, skin and safety discussed-teach back done. Call light within reach.
[2018-08-05] MEDS: HYDROmorphone 1 MG INJ. 1 MG/ML AMPUL IVP PRN ×4 (08:38→21:15)
[2018-08-05] MEDS: MUPIROCIN 2% TOPICAL OINTMENT 22 GM NS SCH (08:40)
[2018-08-05] MEDS: DOXYCYCLINE HYCLATE 100 MG CAPSULE PO SCH ×2 (08:41→20:23)
--- NOTE | 2018-08-05 10:30 | NUR ---
ROUNDS/DRESSING/ Pt ambulated to the bathroom and now her big toe on her right foot and her 2nd toe on left foot are both bleeding [id number] blood drops all over the room. Wounds cleansed with normal saline, covered with gauze dressing and secured in place with paper tape. Spoke with Dr. Membreno regarding the order he placed and was checking up on the pt's pain. Needs met, call light within reach.
[2018-08-05 12:02] VITALS: BP_SYST 184
--- NOTE | 2018-08-05 15:38 | NUR ---
ROUNDS/DRESSING change Pt ambulated to the bathroom and now her big toe on her right foot and her 2nd toe on left foot are both bleeding profusely when her feet are down on the ground, with blood drops all over the room. Wounds cleansed with normal saline, covered with gauze dressing and secured in place with paper tape. Pt reminded to elevate her feet on a pillow to help with pain and to decrease the bleeding-pt stated she will try. Call light within reach.
--- NOTE | 2018-08-05 15:42 | NUR ---
CONSULTATION PAGED REASON FOR CONSULTATION:PAIN MANAGEMENT WAS CONSULT CALLED?Y PERSON WHO WAS NOTIFIED:VAN CONSULTING PHYSICIAN:MANJEET FRANKEL EXTRACTOR AND WRINGER OPERATOR SPECIALTY:PAIN [place] FOUNTAIN MANAGER PHONE NUMBER:[phone] REQUESTING PHYSICIAN:DAGOBERTO SIMONS
--- NOTE | 2018-08-05 19:10 | NUR ---
OPENING NOTES Patient in bed, resting at this time. No s/s of acute distress noted. Breathing is even and unlabored. No active bleeding noted. Wound dressings intact, clean, and dry. IV site patent, no signs of infiltration or infection noted. Call light with patient. Bed is locked and at lowest position. Will continue to monitor.
--- NOTE | 2018-08-05 19:22 | NUR ---
CLOSING NOTE/DRESSING CHANGE Pt now resting quietly in bed with no s/s resp distress, no further c/o pain or discomfort-given Dilaudid as ordered earlier. Pt ambulated to the bathroom earlier and right big toe bleeding again and medial left foot also bleeding. Right big toe cleansed with normal saline, gauze wrapped around toe and secured in place with paper tape. Left medial foot cleansed with normal saline, very small area with blood, non-adherent dressing placed to site, wrapped with kerlex and secured in place with paper tape. Pt tolerated well. Pt with BLE elevated on pillows-pt instructed to keep her feet elevated when in bed. Needs met, call light within reach.
[2018-08-05 20:00] VITALS: BP_SYST 158
--- NOTE | 2018-08-05 21:15 | NUR ---
PAIN Patient complained of 6/10 left foot pain. Dilaudid to be administered per PRN order. Call light with patient. Will continue to monitor.
--- NOTE | 2018-08-05 22:45 | NUR ---
DIALYSIS Dialysis nurse arrived and is setting up in the patient's room. Patient in bed, awake, alert, no signs of discomfort noted. Chest rise and fall even bilaterally. Call light with patient. Will continue to monitor.
[2018-08-06] VITALS: BP_SYST 152
[2018-08-06] MEDS: LORazepam 2 MG/ML VIAL IVP PRN ×3 (01:18→18:44)
[2018-08-06] MEDS: HYDROmorphone 1 MG INJ. 1 MG/ML AMPUL IVP PRN ×5 (01:18→18:55)
--- NOTE | 2018-08-06 01:30 | NUR ---
DIALYSIS DONE Dialysis nurse informed RNSantos, that dialysis is done, 2.6L output. Patient tolerated procedure well. No signs of discomfort, no SOB, chest rise and fall even bilaterally. Call light with patient. Will continue to monitor.
[2018-08-06] MEDS: HYDROmorphone 2 MG/ML VIAL IVP PRN ×5 (02:54→21:22)
[2018-08-06] MEDS: DIPHENHYDRAMINE INJ 50 MG/ML VIAL IVP PRN ×4 (02:54→23:09)
--- NOTE | 2018-08-06 03:30 | NUR ---
ROUNDS Patient in bed sleeping at this time. No s/s of acute distress noted. Breathing even and unlabored. Call light with patient. Will continue to monitor.
--- NOTE | 2018-08-06 05:30 | NUR ---
PAIN/ITCHING Patient complained of 6/10 left foot pain and itching. Dilaudid administered per PRN order. Calamine lotion offered per PRN order but patient refused at this time. Patient made aware that Benadryl is yet due, she stated that she is willing to wait. All needs met at this time. Call light with patient. Will continue to monitor.
[2018-08-06] MEDS: NORMAL SALINE 5 ML DISP.SYRIN IVF SCH ×3 (06:35→21:34)
[2018-08-06] MEDS: HYDROCORTISONE SOD SUCC 100 MG/2 ML VIAL IVP SCH (06:35)
[2018-08-06] MEDS: INSULIN Lispro 100 UNITS/ML VIAL (humaLOG) SUBCUT SCH ×4 (06:39→21:41)
--- NOTE | 2018-08-06 06:48 | NUR ---
CLOSING NOTE Patient in bed resting at this time. No s/s of acute distress noted. Breathing even and unlabored. Wound dressings intact, clean, and dry. No active bleeding noted. Skin warm and dry to touch. IV site patent, no signs of infiltration or infection noted. All needs met throughout shift. Fall and safety precautions maintained throughout shift. Will continue to monitor until patient care is endorsed to oncoming dayshift nurse.
[2018-08-06 07:30] VITALS: BP_SYST 186
--- NOTE | 2018-08-06 07:30 | NUR ---
INITIAL ROUNDS Received pt AAOx4, no s/s resp distress, c/o mild pain 2-06/11-had pain medication at 0700. Noted pt itching all over-will check on Benadryl. Plan of care for the day reviewed with pt-pt verbalized her understanding. Noted dressings to anterior foot/byrnes and lateral foot medial clean dry and intact. Pt with dressing to right big toe, left big toe clean, dry and intact. Some bleeding from let 2nd toe-new dressing placed-see skin assessment. Pain management, disease process, skin and safety discussed-teach back done. Pt reminded to keep her feet elevated on pillow for wound care-pt stated she will try. Call light within reach.
[2018-08-06] MEDS: DOXYCYCLINE HYCLATE 100 MG CAPSULE PO SCH ×2 (08:50→21:37)
--- NOTE | 2018-08-06 11:35 | NUR ---
ROUNDS Pt resting quietly in bed with no s/s resp distress, c/o pain now 05/14. Pt c/o feeling hungry-requesting early lunch tray-will check with dietary. Pt reminded to elevated her feet-pt assisted with putting her feet on pillows. Needs met, call light within reach.
[2018-08-06 12:02] VITALS: BP_SYST 171
[2018-08-06] MEDS ORDERED: NIFEDIPINE 30 MG TAB.ER.24 PO ONE (13:15)
[2018-08-06 13:26] LABS: BASOPHILS % (AUTO) 0.2 % (0.0-2.0); EOSINOPHILS % (AUTO) 0.2 % (0.0-4.0); HEMATOCRIT 32.1 % (36-48); LYMPHOCYTES # (AUTO) 0.6 K/uL (1.0-5.5); LYMPHOCYTES % (AUTO) 4.9 % (20.5-51.5); MEAN CORPUSCULAR HEMOGLOBIN 32 pg (27-31); MEAN CORPUSCULAR HGB CONC 31 % (32-36); MEAN CORPUSCULAR VOLUME 102 fL (79.0-98.0); MONOCYTES # (AUTO) 0.2 K/uL (0.0-1.0); MONOCYTES % (AUTO) 1.3 % (1.7-9.3); NEUTROPHILS # (AUTO) 11.1 K/uL (1.8-7.7); NEUTROPHILS % (AUTO) 93.4 % (40.0-70.0); PLATELET COUNT (AUTO) 160 K/uL (130-430); RED BLOOD CELL COUNT(AUTO) 3.15 MIL/uL (4.2-6.2); WHITE BLOOD COUNT (AUTO) 11.9 K/uL (4.8-10.8)
[2018-08-06 13:30] LABS: CALCIUM 8.9 mg/dL (8.4-11.0); CREATININE 3.82 mg/dL (0.55-1.30); POTASSIUM 5.3 mmol/L (3.5-5.1)
--- NOTE | 2018-08-06 15:08 | NUR ---
P.T. NOTES RECEIVED P.T. EVAL ORDER; Pt REFUSED TO PARTICIPATE W/ P.T., STATES "TODAY IS NOT A GOOD DAY FOR ME, I DON't WANT TO GET UP, I HAVE BEEN WALKING TO THE BATHROOM W/ NURSE, I USE A WALKER"; EXPLAINED BENEFITS OF THERAPY, Pt STILL DECLINED, APPRECIATIVE; STATES SHE LIVES IN 2-VIJAY HOUSE W/ AUNT, BEDOROOM UPSTAIRS, USES FWW AT HOME; CALL [facility]CHELL, PHONE, TABLE IN REACH, BED ALARM ON; WANTS DOOR CLOSED; FOLLOW UP WHEN PARTICIPATIVE.
[2018-08-06 16:02] VITALS: BP_SYST 184
--- NOTE | 2018-08-06 16:10 | NUR ---
Nutrition F/U RD reviewed current EMR record including diet Hx, physician notes, nursing notes, pertinent labs/meds, care trends, and care activity. Current Diet Order: renal, CCHO diet w/ Nepro BID -- remains adequate/appropriate; pt is tolerating diet well, 81% average intakes x10 meals since last RD visit. Wt has increased by 12 lb -- 147 lb (08/01/18) to 159 lb (08/06/18) -- possibly r/t fluid retention associated w/ Hx of ESRD. Nursing notes indicated 2+ non-pitting edema to L/R legs. Estimated Energy Expenditure (kcals/day) 0741-8872 kcal/day (30-35 kcal/kg CBW for wound healing) Estimated Protein Required (g/day) 84-101 gm/day (1.25-1.5 gm/kg CBW for wound healing, ESRD/HD) Estimated Fluid Required (l/day) Per MD (ESRD) Problem/Etiology/Signs/Symptoms Inadequate nutritional intakes related to lack of appetite as evidenced by fair PO intake records. *improving Altered nutrition-related labs related to endocrine dysfunction as evidenced by elevated BG and POC BG lab values. *BG levels increased since last RD visit Expected Outcomes/Goals - Monitor appetite and PO intakes w/ goal of pt meeting at least 75% of estimated nutritional needs, labs trending WNL, normal GI function, and skin integrity/wt maintenance Dietitian Recommendations * Recommend continuing renal, CCHO diet w/ Nepro BID (ONS provides an additional 850 kcal/day and 38 gm protein/day) Follow Up Mod Risk: F/U in 3-5 days
--- NOTE | 2018-08-06 16:15 | NUR ---
Dietitian Recommendations * Recommend continuing renal, CCHO diet w/ Nepro BID (ONS provides an additional 850 kcal/day and 38 gm protein/day) LP, RD Please refer to Nutrition F/U for details.
--- NOTE | 2018-08-06 17:10 | NUR ---
DRESSING CHANGE *Left anterior distal byrnes cleansed with normal saline, moisture barrier cream applied to periwound, Hydrogel applied to wound bed, covered with foam dressing. Wound bed 100% dark pink, minimal drainage, no necrotic tissue, no odor, periwound intact. Left anterior foot distal to above wound cleansed with normal saline, Hydrogel applied to wound bed, moisture barrier cream applied to periwound, covered with foam dressing. Wound bed 100% light pink, no drainage, no odor, no necrotic tissue noted. Pt tolerated well.
--- NOTE | 2018-08-06 19:00 | NUR ---
CLOSING NOTE Pt now resting quietly in bed with no s/s resp distress, just given 1mg Dilaudid as ordered for moderate pain. Pt with feet elevated on pillow. Pt c/o itchiness and given Ativan per pt request for itchiness. Pt reminded to wear her post-op shoes when out of bed. Needs met, call light within reach. Addendum: 08/06/18 at 1930 by Ashley Richardson RN BP rechecked 149/98.
[2018-08-06 20:00] VITALS: BP_SYST 147
--- NOTE | 2018-08-06 20:00 | NUR ---
Pt is fully awake, alert and oriented x3. No c/o pain or discomfort and no acute distress noted. Saline lock is intact in left thumb without any signs of infiltration. Skin is warm and dry to touch. No signs or symptoms of hypoglycemia or hyperglycemia noted. Rt arm shunt is with good bruit and thrill. Fall and safety precautions are in place. Pt was instructed to call for assistance as needed and pt verbalized understanding. Pt declined bed alarm.
--- NOTE | 2018-08-06 21:22 | NUR ---
Pt c/o 11/11 left foot pain and requested 2mg IV Dilaudid. Same given per pt's request with relief.
[2018-08-06] MEDS: NIFEDIPINE 30 MG TAB.ER.24 PO SCH (21:37)
[2018-08-06] MEDS: INSULIN GLARGINE 100 UNITS/ML 10 ML VIAL SUBCUT SCH (21:43)
--- NOTE | 2018-08-06 21:43 | NUR ---
Accucheck 359 and skin remains warm and dry to touch. Lantus Insulin 25 units and Humalog Insulin 10 units were given SQ. Pt was given 2 1/2 turkey sandwiches, 2 cups pudding and 1 cup chicken broth per her request for HS snacks. Addendum: 08/06/18 at 2324 by Silva Smith RN Pt ate all the snacks she requested and ate 2 additional cups of pudding.
--- NOTE | 2018-08-06 23:09 | NUR ---
Benadryl 25mg was given IV per pt's request for c/o generalized itching. Fall and safety precautions are in place. Call light is with pt and bed is in the lowest and locked positions. Pt declined bed alarm and stated she will not get out of bed.
--- NOTE | 2018-08-07 01:40 | NUR ---
Pt c/o pain at the IV site in left thumb. New IV line was restarted in LAC by charge nurse Art with Angiocath 24G. Old Angiocath in left thumb was removed intact and pressure dressing applied to the site.
[2018-08-07] MEDS: HYDROmorphone 2 MG/ML VIAL IVP PRN ×5 (01:47→21:41)
--- NOTE | 2018-08-07 01:47 | NUR ---
Pt c/o 12/12 left foot pain and requested 2mg IV Dilaudid. Same given per pt's request with relief.
[2018-08-07 01:58] VITALS: BP_SYST 141
[2018-08-07] MEDS: LORazepam 2 MG/ML VIAL IVP PRN ×3 (03:01→22:27)
--- NOTE | 2018-08-07 03:01 | NUR ---
Ativan 1mg was given IV per pt's request for c/o anxiety. Pt declined bed alarm and stated she will not get out of bed. Call light is with pt and bed is in the lowest and locked positions.
[2018-08-07] MEDS: HYDROmorphone 1 MG INJ. 1 MG/ML AMPUL IVP PRN (04:22)
--- NOTE | 2018-08-07 04:22 | NUR ---
Pt c/o 09/11 left leg pain and requested 1mg IV Dilaudid. Same given per pt's request with relief.
--- NOTE | 2018-08-07 06:24 | NUR ---
Pt c/o 12/12 left foot pain and requested 2mg IV Dilaudid. Same given per pt's request with relief.
[2018-08-07] MEDS: NORMAL SALINE 5 ML DISP.SYRIN IVF SCH ×3 (06:35→22:20)
[2018-08-07] MEDS: INSULIN Lispro 100 UNITS/ML VIAL (humaLOG) SUBCUT SCH ×4 (06:40→21:00)
--- NOTE | 2018-08-07 06:47 | NUR ---
Pt is resting quietly in bed. Accucheck 434 this AM and skin remains warm and dry to touch. 12 units Humalog Insulin given SQ. Dr. Alas was notified of 434 blood sugar and new order received for Lantus 10units SQ x1.
[2018-08-07] MEDS ORDERED: INSULIN GLARGINE 100 UNITS/ML 10 ML VIAL SUBCUT ONE (07:00)
[2018-08-07] MEDS: DIPHENHYDRAMINE INJ 50 MG/ML VIAL IVP PRN ×3 (07:34→19:12)
[2018-08-07 07:35] VITALS: BP_SYST 127
--- NOTE | 2018-08-07 08:00 | NUR ---
RN opening note Report was endorsed by night nurse. Patient is complaining of itching mediated per order. Patient is also requested regular surgeon educated patient that with blood sugars are high, we are trying to get them under better control. Patient verbalized understanding. Patient educated donation specialist light for assistance, call light is with her. Patient verbalized understanding. Patient has no other complaints at this time. Patient has no signs of any distress. Patient is eating her breakfast in bed. will continue to monitor. Vital signs are stable.
[2018-08-07] MEDS: NIFEDIPINE 30 MG TAB.ER.24 PO SCH ×2 (08:11→22:18)
[2018-08-07] MEDS: DOXYCYCLINE HYCLATE 100 MG CAPSULE PO SCH ×2 (08:11→21:00)
--- NOTE | 2018-08-07 08:43 | NUR ---
Medication Patient is complains of anxiety medicated per order. Educated patient on side effects. Patient educated absorption operator light for assistance. Patient has call light with her. Patient has all safety precautions in place. no other needs at this time will continue to monitor.
--- NOTE | 2018-08-07 09:15 | NUR ---
Pain medication Patient complains pain educated on pain medication, medicated per order. Patient has call light with her educated to use for assistance. Patient educated on extra food, due to patients diet restriction, extra sugar can cause an increase in her blood sugar we are trying to get a better handle on her elevated blood sugar. patient verbalized understanding. will continue to monitor patient no other needs at this time. Addendum: 08/07/18 at 1159 by Zoey Saucedo RN weight loss centre manager informed and will go in to see patient to provide her with education on diet.
--- NOTE | 2018-08-07 11:57 | NUR ---
BS check Patients blood sugar is 172 refusing to have insulin educated patient on importance of insulin but is still refusing. Patient is still receiving Hemodialysis. Patient has no complaints at this time. Patient has all safety precautions in place. no other needs at this time. will continue to monitor.
--- NOTE | 2018-08-07 13:10 | NUR ---
PATIENT WAS HAVING HEMODIALYSIS, THEREFORE, NOT AVAILABLE FOR EVALUATION. PLAN: ATTEMPT THE EVALUATION TOMORROW MORNING. RN IS AWARE.
--- NOTE | 2018-08-07 13:35 | NUR ---
RN rounding Patient is still having hemodialysis done. Patient appears to be resting with both eyes closed no signs of any distress, breathing is equal and non labored. Patient has all safety precautions in place. Patient has no other needs at this time will continue to monitor.
--- NOTE | 2018-08-07 14:12 | NUR ---
medication Patient complains of itching medicated per order.Patient scheduled saline flush given. Patient has all safety precautions in place. Patient is finishing up her dialysis the dialysis nurse is present at bed side. Patient has no other needs at this time. will continue to monitor.
--- NOTE | 2018-08-07 15:57 | NUR ---
consult for Dr.Mahta gonzales
[2018-08-07 16:36] VITALS: BP_SYST 145
[2018-08-07] MEDS ORDERED: HYDROmorphone 2 MG/ML VIAL IVP ONE (17:30)
[2018-08-07] MEDS ORDERED: DIPHENHYDRAMINE INJ 50 MG/ML VIAL IM PRN (17:30)
[2018-08-07] MEDS ORDERED: DIPHENHYDRAMINE INJ 50 MG/ML VIAL IVP PRN ×2 (17:30→19:15)
--- NOTE | 2018-08-07 17:30 | NUR ---
DR. Claire hernandez at bedside. Patient is awake and alert. MD made aware of patients pain that is not being controlled, and uncontrolled itching orders were received. Called pharmacy to verify orders. Patient made aware of orders placed. Patient Blood sugar also checked is 116 with no coverage needed. Patient has all safety precautions in place. patient has no other needs at this time. will continue to monitor.
--- NOTE | 2018-08-07 17:44 | NUR ---
MEDICATION Patients pain medication given per order. Patient educated on safety precautions call light and phone are with patient. Patient has no other needs at this time. will continue to monitor.
--- NOTE | 2018-08-07 18:03 | NUR ---
dr. Vaz Spoke with Dr. Wei states he is currently out of town but would like to speak with Dr. Rangel for treatment plan. Dr. Rangel is at [facility] station. Paged to speak with waiting for call back. Addendum: 08/07/18 at 1819 by Zoey Saucedo RN had to leave but left his cell phone number for Dr. Vaz to call him back to discuss plan of care. Dr. Rangel phone number is [phone]
--- NOTE | 2018-08-07 18:19 | NUR ---
rn closing note Patient is awake and alert, sitting up in bed visiting with family. Patient states she is feeling a lot better. Patient made aware that DR. Vaz will be getting a hold of . when Dr. Vaz calls back please have him have him give Dr. Rangel a call back on cell phone at to discuss plan of care. will endorse to next shift to endorse phone number. Patient has no complaints at this time. All safety precautions in place. Call light is with in reach. no other needs at this time. Addendum: 08/07/18 at 1830 by Zoey Saucedo RN spoke with dr. Giron provided him with cell phone number of
--- NOTE | 2018-08-07 18:24 | NUR ---
PAGED.. PAGED DOCTOR SMOOTH FOR 2ND CALL
--- NOTE | 2018-08-07 19:39 | NUR ---
Pt was received sitting at the bedside fully awake, alert and oriented x3. No c/o pain or discomfort and no acute distress noted at this time. Saline lock is intact in LAC without any signs of infiltration. Skin is warm and dry to touch. No signs or symptoms of hypoglycemia or hyperglycemia noted. Rt arm AV shunt is with good bruit and thrill. Fall and safety precautions are in place. Pt was instructed to call for assistance as needed and pt verbalized understanding.
[2018-08-07 20:00] VITALS: BP_SYST 139
[2018-08-07] MEDS: INSULIN GLARGINE 100 UNITS/ML 10 ML VIAL SUBCUT SCH (21:00)
--- NOTE | 2018-08-07 21:41 | NUR ---
Pt c/o 12/12 right foot pain and requested 2mg IV Dilaudid. Same given per pt's request with relief.
--- NOTE | 2018-08-07 22:18 | NUR ---
Accucheck 143 and skin remains warm and dry to touch. Pt refused scheduled HS Lantus Insulin and she ate food brought from home.
--- NOTE | 2018-08-07 22:27 | NUR ---
Ativan 1mg was given IV per pt's request for c/o anxiety. Pt declined bed alarm. Call light is with pt and bed is in the lowest and locked positions.
[2018-08-07] MEDS: HYDROcodone/ACETAMIN 10-325 MG TAB PO SCH (23:43)
--- NOTE | 2018-08-08 | NUR ---
Pt is resting quietly in bed. VSS. No c/o pain or discomfort at this time. Fall and safety precautions are in place.
[2018-08-08 01:18] VITALS: BP_SYST 118
[2018-08-08] MEDS: HYDROmorphone 2 MG/ML VIAL IVP PRN ×5 (02:08→20:23)
--- NOTE | 2018-08-08 02:08 | NUR ---
Pt c/o 12/12 right foot pain and requested 2mg IV Dilaudid. Same given per pt's request with relief.
[2018-08-08] MEDS: DIPHENHYDRAMINE INJ 50 MG/ML VIAL IVP PRN ×5 (03:38→22:07)
--- NOTE | 2018-08-08 04:00 | NUR ---
Pt is resting in bed without any distress noted. Fall and safety precautions are in place.
[2018-08-08] MEDS: HYDROcodone/ACETAMIN 10-325 MG TAB PO SCH ×3 (06:00→16:52)
[2018-08-08] MEDS: NORMAL SALINE 5 ML DISP.SYRIN IVF SCH ×3 (06:11→22:10)
--- NOTE | 2018-08-08 06:11 | NUR ---
Pt c/o 12/12 right foot pain and requested 2mg IV Dilaudid. Same given per pt's request with relief.
[2018-08-08] MEDS: INSULIN Lispro 100 UNITS/ML VIAL (humaLOG) SUBCUT SCH ×4 (06:15→20:28)
--- NOTE | 2018-08-08 06:50 | NUR ---
Pt is awake and resting quietly in bed. All pt's needs were attended to. Accucheck 98 this AM and no Insulin coverage needed. Skin remains warm and dry to touch. Fall and safety precautions are in place. Will endorse to day shift nurse.
[2018-08-08 07:02] LABS: BASOPHILS # (AUTO) 0.1 K/uL (0.0-0.2); EOSINOPHILS # (AUTO) 1.6 K/uL (0.0-0.4); EOSINOPHILS % (AUTO) 13.8 % (0.0-4.0); HEMATOCRIT 30.5 % (36-48); HEMOGLOBIN 9.9 g/dL (12.0-16.0); LYMPHOCYTES # (AUTO) 1.8 K/uL (1.0-5.5); LYMPHOCYTES % (AUTO) 15.8 % (20.5-51.5); MEAN CORPUSCULAR HEMOGLOBIN 32 pg (27-31); MEAN CORPUSCULAR HGB CONC 32 % (32-36); MEAN CORPUSCULAR VOLUME 97 fL (79.0-98.0); MONOCYTES # (AUTO) 0.6 K/uL (0.0-1.0); MONOCYTES % (AUTO) 5.4 % (1.7-9.3); NEUTROPHILS # (AUTO) 7.2 K/uL (1.8-7.7); PLATELET COUNT (AUTO) 194 K/uL (130-430); RED BLOOD CELL COUNT(AUTO) 3.13 MIL/uL (4.2-6.2); RED CELL DISTRIBUTION WIDTH 17.5 % (9.0-15.0); WHITE BLOOD COUNT (AUTO) 11.3 K/uL (4.8-10.8)
[2018-08-08 07:16] LABS: CALCIUM 8.7 mg/dL (8.4-11.0); CREATININE 4.04 mg/dL (0.55-1.30); POTASSIUM 5.3 mmol/L (3.5-5.1)
[2018-08-08 07:20] LABS: PHOSPHORUS 4.4 mg/dL (2.7-4.5)
[2018-08-08 08:00] VITALS: BP_SYST 149
--- NOTE | 2018-08-08 08:00 | NUR ---
Note Pt sitting on side of bed eating her breakfast. No SOB/resp distress at this time. Pain tolerable at this time. IV in left forearm intact and patent. No needs noted at this time. Call light within reach. AV shunt on right upper arm intact at this time.
[2018-08-08] MEDS: LORazepam 2 MG/ML VIAL IVP PRN ×2 (08:46→18:30)
[2018-08-08] MEDS: NIFEDIPINE 30 MG TAB.ER.24 PO SCH ×2 (08:46→20:35)
[2018-08-08] MEDS: DOXYCYCLINE HYCLATE 100 MG CAPSULE PO SCH ×2 (08:47→20:35)
--- NOTE | 2018-08-08 11:15 | NUR ---
DC PLANNING Spoke w pt @ bedside regarding dc planning, states does not want to go to SNF wants to dc home w home health, no preference for [facility]. States her wheel chair is also not working & would like a new one, informed might not be covered/meet criteria would f/u. Attempted to discuss Hospital Medicare days, states someone already discussed w her & aware of her Medicare days. Called Dr Rangel's office to discuss dc plan, Dr Palmer is covering for [facility] today. Per office staff Dr Palmer's last pt is @ 1130 will return my call after finishes seeing pts. Addendum: 08/08/18 at 1217 by Mishel Rao RN Received call back from Dr Palmer, states will be in to eval pt later today. Gave phone order for dc planning for home health, aware pt requesting wc, order for wheel chair if pt qualifies.
--- NOTE | 2018-08-08 12:00 | NUR ---
Note Pt was given Dilaudid, Ativan, Benadryl as requested/scheduled all shift. Pain tolerable at this time. Pt received her Dilaudid IVP at 1140am, [place] PO on hold at this time. Pt states she will sit up on side of bed for her lunch - tray at bedside table. No SOB/resp distress noted at this time. Call light within reach.
[2018-08-08 14:03] VITALS: BP_SYST 129
--- NOTE | 2018-08-08 14:30 | NUR ---
ATTEMPTED TO PERFORM PHYSICAL THERAPY EVALUATION TWICE TODAY. PATIENT REQUESTED TO POSTPONE TO A LATER TIME DUE TO FEELING TOO TIRED/SLEEPY TO ATTEMPT. PLAN: WILL HAVE TO ATTEMPT TOMORROW.
--- NOTE | 2018-08-08 16:00 | NUR ---
Note Pt was seen and assessed by Dr Palmer at bedside, questions/concerns were answered at this time. Dressing on pt's toes bilaterally and left byrnes done at this time. Pt states pain tolerable at this time. Pt checked on q1' and PRN all shift for needs and care. No needs noted at this time. Left forearm IV intact and patent. Call light within reach.
[2018-08-08 16:23] VITALS: BP_SYST 103
--- NOTE | 2018-08-08 16:27 | NUR ---
Discharge Planning: DCP faxed pt order to [facility] (f [phone] p [phone]) DCP to follow up. CM will ask patient which home health is preference.
--- NOTE | 2018-08-08 18:15 | NUR ---
Note Pt sitting on side of bed eating her dinner. No SOB/resp distress noted at this time. Pain tolerable at this time. IV in left forearm intact and patent. Pt was checked on q1' and PRN all shift for needs and care. No needs noted at this time. Call light within reach. Dressings on left and right toes, left ankle area CDI at this time.
[2018-08-08 20:00] VITALS: BP_SYST 122
--- NOTE | 2018-08-08 20:00 | NUR ---
Pt was received in bed fully awake, alert and oriented x3. No c/o pain or discomfort and no acute distress noted at this time. Saline lock is intact in LFA without any signs of infiltration. Skin is warm and dry to touch. No signs or symptoms of hypoglycemia or hyperglycemia noted. Rt arm AV shunt is with good bruit and thrill. Fall and safety precautions are in place. Pt was instructed to call for assistance as needed and pt verbalized understanding.
--- NOTE | 2018-08-08 20:23 | NUR ---
Pt c/o 11/11 right foot pain and requested 2mg IV Dilaudid. Same given per pt's request with relief.
[2018-08-08] MEDS: INSULIN GLARGINE 100 UNITS/ML 10 ML VIAL SUBCUT SCH (20:29)
--- NOTE | 2018-08-08 22:07 | NUR ---
Benadryl 50mg was given IV per pt's request for c/o generalized itching. Fall and safety precautions are in place. Call light is with pt and bed is in the lowest and locked positions. Pt declined bed alarm.
--- NOTE | 2018-08-08 23:51 | NUR ---
Accucheck 125 and skin remains warm and dry to touch. Pt refused scheduled HS Lantus Insulin. Pt ate 100% HS snacks requested, consisting of 1 cup sugar free jello and 1 cup apple juice. Addendum: 08/08/18 at 5534 by Silva Smith RN Accucheck was performed at 2026.
[2018-08-08 23:57] VITALS: BP_SYST 140
[2018-08-09] MEDS: HYDROmorphone 2 MG/ML VIAL IVP PRN ×2 (00:23→04:46)
--- NOTE | 2018-08-09 00:23 | NUR ---
Dilaudid 2mg was given IV per pt's request for c/o 9/10 right foot pain with relief.
[2018-08-09] MEDS: DIPHENHYDRAMINE INJ 50 MG/ML VIAL IVP PRN ×3 (02:22→10:13)
--- NOTE | 2018-08-09 04:00 | NUR ---
Discharge photos of wounds on bilateral toes and left byrnes were taken, followed by wound care. Wounds on left byrnes are 100% pinkish and no drainage or odor noted. Wounds were cleansed with normal saline and pat dried. Hydrogel was applied to wound beds and barrier cream to adore wounds, followed by foam dressings. Per pt's request, Kota was wrapped around the foam dressings for additional securement. Rt great toe wound noted with 50% dry scab and 50% pinkish areas. No drainage or odor noted. Wounds on remainder of toes on both feet noted to have 100% pinkish areas with no drainage or odor noted. Wounds were cleansed with normal saline and pat dried. Barrier cream was applied to the wounds followed by foam dressings. Kota was wrapped around the foam dressings.
--- NOTE | 2018-08-09 04:46 | NUR ---
Dilaudid 2mg was given IV per pt's request for c/o 8/10 right foot pain.
--- NOTE | 2018-08-09 04:50 | NUR ---
Per pt, her hemodialysis schedule is , , Tue, not Mon, Weds, Fri. Pt stated she does not have hemodialysis scheduled at the center today and her cannot pick her up by 8am today. Pt stated her will pick her up between 12pm and 1pm during his lunch break at work. Charge nurse was notified.
[2018-08-09] MEDS: HYDROcodone/ACETAMIN 10-325 MG TAB PO SCH ×3 (06:00→09:17)
[2018-08-09] MEDS: INSULIN Lispro 100 UNITS/ML VIAL (humaLOG) SUBCUT SCH ×2 (06:18→11:30)
[2018-08-09] MEDS: NORMAL SALINE 5 ML DISP.SYRIN IVF SCH ×2 (06:19→15:05)
--- NOTE | 2018-08-09 07:01 | NUR ---
Pt is awake and resting quietly in bed. All pt's needs were attended to. Accucheck 77 this AM and no Insulin coverage needed. Skin remains warm and dry to touch. Pt was given jello, apple juice and half turkey sandwich per her request. Saline lock is intact in LFA. Fall and safety precautions are in place. Will endorse to day shift nurse.
--- NOTE | 2018-08-09 07:35 | NUR ---
OPENING NOTE Patient resting in the bed. No acute distress. AAO x 4. Skin warm and dry to touch. SL intact to LFA, no redness, no swelling, patent. AV shunt intact to right arm with thrill/bruit present, no bleeding, no swelling, noted. Dressing intact to bilateral feet. Discussed the safety issue, use call light when needs help, plan of care, and will discharge today, verbally understanding. Safety measure maintained. Bed locked in low position, side rails up. Refused bed alarm, risk and benefit explained, verbally understanding. Call light within reached. Will continue to monitor.
--- NOTE | 2018-08-09 08:56 | NUR ---
Discharge Planning: [facility] (f [phone] p [phone]) is providing wheelchair Addendum: 08/09/18 at 1008 by Alicia Melara DP DCP faxed referral for home health to [facility] p [phone]) per Aliyah patient is accepted. Addendum: 08/09/18 at 1015 by Alicia Melara DP [facility] (f [phone] p [phone]), [facility] (f [phone] p [phone]) is providing wheelchair. KARSON made charge nurse aware.
[2018-08-09 09:14] VITALS: BP_SYST 160
[2018-08-09] MEDS: DOXYCYCLINE HYCLATE 100 MG CAPSULE PO SCH (09:18)
[2018-08-09] MEDS: NIFEDIPINE 30 MG TAB.ER.24 PO SCH (09:18)
--- NOTE | 2018-08-09 09:35 | NUR ---
PAGED: CALLED DR CORTEZ SHROUDMAN FOR DR FULLER RE:ONE TIME DOSE IV PAIN MEDS PER PATIENT'S REQUEST.AMANDA DIAZ AWARE,AWAITS FOR CALL BACK.
[2018-08-09] MEDS ORDERED: ALPR1TAB2 PO (09:39)
[2018-08-09] MEDS ORDERED: DOXY100C PO (09:39)
[2018-08-09] MEDS ORDERED: DILAU PO (09:42)
[2018-08-09] MEDS ORDERED: HYDR2TAB4 PO (09:47)
--- NOTE | 2018-08-09 09:47 | NUR ---
DAGOBERTO SIMONS CALLED BACK Received the call back from Dr. Alas. told MD patient c/o pain, refused Normal and requested Dilaudid one time order. Dr. Alas stated "patient going home today, no Dilaudid, only Normal can be given." Patient informed.
--- NOTE | 2018-08-09 11:28 | NUR ---
WHE[facility]CHAIR [facility] Instructed patient how to use the wheelchair, verbally understanding.
[2018-08-09 13:05] VITALS: BP_SYST 147
[2018-08-09 13:23] VITALS: BP_SYST 155
--- NOTE | 2018-08-09 13:30 | NUR ---
WAITING THE [employer] TEACHER Per patient the will be coming late about another one or two hrs. Safety measure maintained. Call light within reached. Bed locked in low position, side rails up. Continue to monitor.
--- NOTE | 2018-08-09 15:50 | NUR ---
D/C Patient Patient given medication reconciliation form and D/C instructions. Exit Care provided. Patient verbalized understanding. MD discussed with patient the results and treatment provided. Ambulatory with steady gait for discharge to home. Patient in stable condition, ID band removed. IV catheter removed, intact and dressing applied, no active bleeding. Rx of Dilaudid, Xanax, and Doxycycline Hyclate given. Instructed patient to go to dialysis today, patient stated " I will go tomorrow that is my regular schedule". Patient educated on pain management. All belongings sent with patient. Patient left with the new wheelchair.
== END 2018-08-09 15:50 | disposition home health service (06) | DRG 602 ==
LOC: SED 14:18 → SMU 15:59
PROVIDERS: ADMIT Internal Medicine; ATTEND Internal Medicine
PROC: 5A1D70Z Performance of Urinary Filtration, Intermittent, Less than 6 Hours Per Day (ICD-10-PCS; principal; 2018-07-31)
PROC: 5A1D70Z Performance of Urinary Filtration, Intermittent, Less than 6 Hours Per Day (ICD-10-PCS; 2018-08-02)
PROC: 5A1D70Z Performance of Urinary Filtration, Intermittent, Less than 6 Hours Per Day (ICD-10-PCS; 2018-08-04)
PROC: 5A1D70Z Performance of Urinary Filtration, Intermittent, Less than 6 Hours Per Day (ICD-10-PCS; 2018-08-05)
PROC: 5A1D70Z Performance of Urinary Filtration, Intermittent, Less than 6 Hours Per Day (ICD-10-PCS; 2018-08-07)
DX: L03.116 Cellulitis of left lower limb (principal); N18.6 End stage renal disease; L97.929 Non-pressure chronic ulcer of unspecified part of left lower leg with unspecified severity; I13.2 Hypertensive heart and chronic kidney disease with heart failure and with stage 5 chronic kidney disease, or end stage renal disease; I50.9 Heart failure, unspecified; E10.622 Type 1 diabetes mellitus with other skin ulcer; B95.62 Methicillin resistant Staphylococcus aureus infection as the cause of diseases classified elsewhere; L03.115 Cellulitis of right lower limb; R21 Rash and other nonspecific skin eruption; E87.5 Hyperkalemia; E10.22 Type 1 diabetes mellitus with diabetic chronic kidney disease; S92.912A Unspecified fracture of left toe(s), initial encounter for closed fracture; G89.4 Chronic pain syndrome; L29.9 Pruritus, unspecified; M54.9 Dorsalgia, unspecified; S93.305A Unspecified dislocation of left foot, initial encounter; D63.1 Anemia in chronic kidney disease; X58.XXXA Exposure to other specified factors, initial encounter; Y99.8 Other external cause status; Y93.89 Activity, other specified; Y92.89 Other specified places as the place of occurrence of the external cause; Z88.8 Allergy status to other drugs, medicaments and biological substances; Z91.040 Latex allergy status; Z99.2 Dependence on renal dialysis; Z90.49 Acquired absence of other specified parts of digestive tract; Z79.899 Other long term (current) drug therapy
CPT/HCPCS: 36415; 71045; 80048; 80053; 80202-TC; 82962; 83605; 84100-TC; 85025; 87040-TC; 87070-TC; 87081; 90935; 90937; 93923; 96361; 96374; 96375; 99285; J0878; J1170; J1200; J1720; J1815; J2060; J3010; J3370; J3490; J7030; J7050

== ENCOUNTER 2018-08-10 01:42 | Emergency (ER) | payer OTHER ==
[~2018-08-10] VITALS: Ht 170.2 cm; Wt 72.6 kg
[~2018-08-10 01:42] MED LIST changes: +ALPR1TAB2 PO; +DILAU PO; +DOXY100C PO; +HYDR2TAB4 PO
[2018-08-10 01:45] VITALS: BP_SYST 168
--- NOTE | 2018-08-10 01:50 | NUR ---
Patient to ER bed 5 to gown for evaluation. Side rails up.
--- NOTE | 2018-08-10 01:55 | NUR ---
Pt complains of hives and itching after taking clindamycin. Pt was released from hospital today and was prescribed clindamycin. Pt took it and started to feel itcy and developed rash all over body. Pt states she feels nauseous but has not vomited yet. Pt also complains of abominal pain when arrived at the ED. No other injuries/complaints per patient or noted.
--- NOTE | 2018-08-10 02:01 | NUR ---
ER at bedside examining patient.
[2018-08-10] MEDS ORDERED: METOCLOPRAMIDE HCL 10 MG/2 ML VIAL IM ONE (02:15)
[2018-08-10] MEDS ORDERED: DIPHENHYDRAMINE INJ 50 MG/ML VIAL IM ONE (02:15)
[2018-08-10] MEDS ORDERED: fentaNYL CITRATE/PF 100 MCG/2 ML AMP IM ONE (02:15)
[2018-08-10 03:30] VITALS: BP_SYST 142
--- NOTE | 2018-08-10 03:40 | NUR ---
Patient given written and verbal discharge instructions and verbalizes understanding. ER MD discussed with patient the results and treatment provided. Patient in stable condition. ID arm band removed. Rx of Zyrtec and Keflex given. Patient educated on pain management and to follow up with PMD. Pain Scale 0. Opportunity for questions provided and answered. Medication side effect fact sheet provided.
== END 2018-08-10 03:30 | disposition home or self-care (01) ==
LOC: SED 01:42
DX: L27.0 Generalized skin eruption due to drugs and medicaments taken internally (principal); T36.8X5A Adverse effect of other systemic antibiotics, initial encounter; I13.2 Hypertensive heart and chronic kidney disease with heart failure and with stage 5 chronic kidney disease, or end stage renal disease; I50.9 Heart failure, unspecified; N18.6 End stage renal disease; E10.22 Type 1 diabetes mellitus with diabetic chronic kidney disease; Z99.2 Dependence on renal dialysis; Z91.040 Latex allergy status; Z88.8 Allergy status to other drugs, medicaments and biological substances; Z79.899 Other long term (current) drug therapy; Y92.89 Other specified places as the place of occurrence of the external cause
CPT/HCPCS: 96372; 99283; J1200; J2765; J3010

== ENCOUNTER 2018-08-12 05:33 | Inpatient (IN) | payer OTHER ==
[~2018-08-12] VITALS: Ht 170.2 cm; Wt 81.6 kg
[~2018-08-12 05:33] MED LIST changes: -DILAU PO
[2018-08-12 05:40] VITALS: BP_SYST 202
[2018-08-12] MEDS ORDERED: fentaNYL CITRATE/PF 100 MCG/2 ML AMP IVP ONE ×2 (06:15→08:00)
[2018-08-12 06:37] LABS: BASOPHILS # (AUTO) 0.1 K/uL (0.0-0.2); BASOPHILS % (AUTO) 0.8 % (0.0-2.0); HEMATOCRIT 28.2 % (36-48); HEMOGLOBIN 9.2 g/dL (12.0-16.0); LYMPHOCYTES # (AUTO) 1.1 K/uL (1.0-5.5); LYMPHOCYTES % (AUTO) 10.5 % (20.5-51.5); MEAN CORPUSCULAR HEMOGLOBIN 32 pg (27-31); MEAN CORPUSCULAR HGB CONC 33 % (32-36); MEAN CORPUSCULAR VOLUME 99 fL (79.0-98.0); MONOCYTES # (AUTO) 0.7 K/uL (0.0-1.0); NEUTROPHILS # (AUTO) 6.3 K/uL (1.8-7.7); NEUTROPHILS % (AUTO) 61.7 % (40.0-70.0); PLATELET COUNT (AUTO) 224 K/uL (130-430); RED BLOOD CELL COUNT(AUTO) 2.84 MIL/uL (4.2-6.2); RED CELL DISTRIBUTION WIDTH 18.4 % (9.0-15.0); WHITE BLOOD COUNT (AUTO) 10.2 K/uL (4.8-10.8)
[2018-08-12 06:57] LABS: ALBUMIN 3.2 g/dL (3.4-4.8); TOTAL BILIRUBIN 0.9 mg/dL (0.0-1.0)
[2018-08-12 07:01] LABS: POTASSIUM 6.8 mmol/L (3.5-5.1)
[2018-08-12 07:02] LABS: CREATININE 8.03 mg/dL (0.55-1.30)
[2018-08-12] MEDS ORDERED: INSULIN REGULAR, HUMAN 10 UNITS/0.1 ML INJ IVP ONE (07:15)
[2018-08-12] MEDS ORDERED: SODIUM POLYSTYRENE SULFONATE 15 GM/60 ML UDBTL PO ONE (07:15)
[2018-08-12] MEDS ORDERED: DEXTROSE 50% JECT 50 ML DISP.SYRIN IVP ONE (07:15)
[2018-08-12] MEDS ORDERED: SODIUM BICARBONATE 8.4% VIAL 50 MEQ/50 ML VIAL INJ ONE (09:00)
[2018-08-12] MEDS ORDERED: ACETAMINOPHEN 325 MG TABLET PO PRN (09:00)
[2018-08-12 10:48] VITALS: BP_SYST 184
[2018-08-12 12:30] VITALS: BP_SYST 152
[2018-08-12] MEDS ORDERED: HYDROmorphone 1 MG INJ. 1 MG/ML AMPUL IVP PRN (12:45)
[2018-08-12] MEDS: DIPHENHYDRAMINE INJ 50 MG/ML VIAL IVP PRN ×3 (13:22→21:46)
[2018-08-12 16:10] VITALS: BP_SYST 150
[2018-08-12] MEDS: HYDROmorphone 2 MG/ML VIAL IVP PRN ×2 (17:31→21:46)
[2018-08-12] MEDS: CEFEPIME 1 GM in D5W 50 ML IV SCH (18:08)
[2018-08-12] MEDS ORDERED: ALPR1TAB2 PO (18:30)
[2018-08-12] MEDS ORDERED: LORA-259 PO ×2 (18:39)
[2018-08-12] MEDS ORDERED: HYDR4TAB57 PO (18:39)
[2018-08-12] MEDS ORDERED: HYDR100T25 PO (18:39)
[2018-08-12] MEDS ORDERED: GABA-531 PO (18:39)
[2018-08-12 21:00] VITALS: BP_SYST 167
[2018-08-12] MEDS ORDERED: INSULIN GLARGINE 100 UNITS/ML 10 ML VIAL SUBCUT SCH (21:00)
[2018-08-12] MEDS: DOXYCYCLINE HYCLATE 100 MG CAPSULE PO SCH (21:40)
[2018-08-12] MEDS: NIFEDIPINE 30 MG TAB.ER.24 PO SCH (21:41)
[2018-08-13 00:33] VITALS: BP_SYST 143
[2018-08-13] MEDS: DIPHENHYDRAMINE INJ 50 MG/ML VIAL IVP PRN ×5 (02:51→22:28)
[2018-08-13] MEDS: HYDROmorphone 2 MG/ML VIAL IVP PRN ×6 (02:52→22:29)
[2018-08-13] MEDS: HYDROcodone/ACETAMIN 10-325 MG TAB PO PRN ×3 (04:52→17:14)
[2018-08-13 06:28] LABS: BASOPHILS # (AUTO) 0.1 K/uL (0.0-0.2); BASOPHILS % (AUTO) 1.2 % (0.0-2.0); EOSINOPHILS # (AUTO) 1.7 K/uL (0.0-0.4); EOSINOPHILS % (AUTO) 20.7 % (0.0-4.0); HEMATOCRIT 26.8 % (36-48); HEMOGLOBIN 8.7 g/dL (12.0-16.0); LYMPHOCYTES # (AUTO) 1.5 K/uL (1.0-5.5); LYMPHOCYTES % (AUTO) 17.9 % (20.5-51.5); MEAN CORPUSCULAR HEMOGLOBIN 32 pg (27-31); MEAN CORPUSCULAR HGB CONC 33 % (32-36); MEAN CORPUSCULAR VOLUME 98 fL (79.0-98.0); MONOCYTES # (AUTO) 0.7 K/uL (0.0-1.0); MONOCYTES % (AUTO) 7.9 % (1.7-9.3); NEUTROPHILS # (AUTO) 4.4 K/uL (1.8-7.7); NEUTROPHILS % (AUTO) 52.3 % (40.0-70.0); PLATELET COUNT (AUTO) 220 K/uL (130-430); RED BLOOD CELL COUNT(AUTO) 2.73 MIL/uL (4.2-6.2); WHITE BLOOD COUNT (AUTO) 8.3 K/uL (4.8-10.8)
[2018-08-13 07:43] LABS: POTASSIUM 5.1 mmol/L (3.5-5.1)
[2018-08-13 07:44] LABS: ALBUMIN 2.8 g/dL (3.4-4.8); CALCIUM 8.4 mg/dL (8.4-11.0); CREATININE 5.72 mg/dL (0.55-1.30)
[2018-08-13 07:45] LABS: PHOSPHORUS 6.4 mg/dL (2.7-4.5)
[2018-08-13 08:00] VITALS: BP_SYST 124
[2018-08-13] MEDS: NIFEDIPINE 30 MG TAB.ER.24 PO SCH ×2 (09:10→20:51)
[2018-08-13] MEDS: DOXYCYCLINE HYCLATE 100 MG CAPSULE PO SCH ×2 (09:11→20:50)
[2018-08-13] MEDS: LORazepam 2 MG/ML VIAL IVP PRN ×2 (10:12→14:17)
[2018-08-13 15:04] VITALS: BP_SYST 123
[2018-08-13] MEDS: CEFEPIME 1 GM in D5W 50 ML IV SCH (17:14)
[2018-08-13] MEDS: INSULIN LISPRO SLIDING SCALE 100 UNITS/ML VIAL (humaLOG) SUBCUT PRN (17:17)
[2018-08-13] MEDS: INSULIN GLARGINE 100 UNITS/ML 10 ML VIAL SUBCUT SCH (20:50)
[2018-08-13 21:00] VITALS: BP_SYST 124
[2018-08-14] MEDS: DIPHENHYDRAMINE INJ 50 MG/ML VIAL IVP PRN ×7 (01:29→20:43)
[2018-08-14] MEDS: HYDROmorphone 2 MG/ML VIAL IVP PRN ×7 (01:33→20:46)
[2018-08-14 03:35] VITALS: BP_SYST 109
[2018-08-14 06:39] LABS: BASOPHILS # (AUTO) 0.1 K/uL (0.0-0.2); EOSINOPHILS # (AUTO) 2.2 K/uL (0.0-0.4); EOSINOPHILS % (AUTO) 23.8 % (0.0-4.0); HEMOGLOBIN 9.4 g/dL (12.0-16.0); LYMPHOCYTES # (AUTO) 1.3 K/uL (1.0-5.5); LYMPHOCYTES % (AUTO) 14.4 % (20.5-51.5); MEAN CORPUSCULAR HEMOGLOBIN 32 pg (27-31); MEAN CORPUSCULAR HGB CONC 32 % (32-36); MEAN CORPUSCULAR VOLUME 98 fL (79.0-98.0); MONOCYTES # (AUTO) 0.7 K/uL (0.0-1.0); MONOCYTES % (AUTO) 7.5 % (1.7-9.3); NEUTROPHILS # (AUTO) 4.9 K/uL (1.8-7.7); PLATELET COUNT (AUTO) 244 K/uL (130-430); RED BLOOD CELL COUNT(AUTO) 2.96 MIL/uL (4.2-6.2); RED CELL DISTRIBUTION WIDTH 17.8 % (9.0-15.0); WHITE BLOOD COUNT (AUTO) 9.2 K/uL (4.8-10.8)
[2018-08-14 07:09] LABS: CALCIUM 8.8 mg/dL (8.4-11.0); CREATININE 6.89 mg/dL (0.55-1.30); PHOSPHORUS 7.9 mg/dL (2.7-4.5); THYROID STIMULATING HORMONE 3.95 uIu/mL (0.34-4.82)
[2018-08-14 07:40] LABS: POTASSIUM 6.3 mmol/L (3.5-5.1)
[2018-08-14 08:17] LABS: NEUTROPHILS % (AUTO) 53.3 % (40.0-70.0)
[2018-08-14] MEDS: NIFEDIPINE 30 MG TAB.ER.24 PO SCH ×3 (09:00→20:54)
[2018-08-14 09:03] VITALS: BP_SYST 119
[2018-08-14 09:44] LABS: CALCIUM 8.7 mg/dL (8.4-11.0); CREATININE 4.72 mg/dL (0.55-1.30); POTASSIUM 4.2 mmol/L (3.5-5.1)
[2018-08-14] MEDS: DOXYCYCLINE HYCLATE 100 MG CAPSULE PO SCH ×2 (11:16→20:42)
[2018-08-14 12:43] VITALS: BP_SYST 128
[2018-08-14] MEDS: LORazepam 2 MG/ML VIAL IVP PRN ×2 (13:52→19:40)
[2018-08-14 16:38] VITALS: BP_SYST 136
[2018-08-14] MEDS: CEFEPIME 1 GM in D5W 50 ML IV SCH (17:29)
[2018-08-14] MEDS: MINERAL OIL/PETROLATUM,WHITE 113 GM CREAM.GM. TP SCH (18:45)
[2018-08-14 19:40] VITALS: BP_SYST 130
[2018-08-14] MEDS: INSULIN GLARGINE 100 UNITS/ML 10 ML VIAL SUBCUT SCH (21:00)
[2018-08-15] VITALS: BP_SYST 140
[2018-08-15] MEDS: DIPHENHYDRAMINE INJ 50 MG/ML VIAL IVP PRN ×5 (00:06→18:53)
[2018-08-15] MEDS: HYDROmorphone 2 MG/ML VIAL IVP PRN ×5 (00:07→18:45)
[2018-08-15] MEDS: LORazepam 2 MG/ML VIAL IVP PRN ×3 (02:18→22:21)
[2018-08-15] MEDS: HYDROcodone/ACETAMIN 10-325 MG TAB PO SCH ×5 (06:00→23:27)
[2018-08-15] MEDS: DOXYCYCLINE HYCLATE 100 MG CAPSULE PO SCH ×2 (09:26→20:26)
[2018-08-15] MEDS: DOCUSATE SODIUM 250 MG CAPSULE PO SCH ×2 (09:27→20:26)
[2018-08-15] MEDS: PREGABALIN 25 MG CAPSULE (LYRICA) PO SCH ×2 (09:27→20:26)
[2018-08-15] MEDS: NIFEDIPINE 30 MG TAB.ER.24 PO SCH ×2 (11:34→20:27)
[2018-08-15] MEDS: MINERAL OIL/PETROLATUM,WHITE 113 GM CREAM.GM. TP SCH (11:35)
[2018-08-15 12:32] VITALS: BP_SYST 163
[2018-08-15 16:45] VITALS: BP_SYST 158
[2018-08-15] MEDS: CEFEPIME 1 GM in D5W 50 ML IV SCH (17:09)
[2018-08-15 20:00] VITALS: BP_SYST 144
[2018-08-15] MEDS: DULoxetine HCL 30 MG CAPSULE.DR (CYMBALTA) PO SCH (20:27)
[2018-08-15] MEDS: INSULIN GLARGINE 100 UNITS/ML 10 ML VIAL SUBCUT SCH (20:28)
[2018-08-16] VITALS (7 sets, daily range): BP systolic 125–156
[2018-08-16] MEDS: DIPHENHYDRAMINE INJ 50 MG/ML VIAL IVP PRN ×5 (00:43→23:22)
[2018-08-16] MEDS: HYDROmorphone 2 MG/ML VIAL IVP PRN ×4 (00:44→18:55)
[2018-08-16] MEDS: HYDROcodone/ACETAMIN 10-325 MG TAB PO SCH ×4 (05:48→23:22)
[2018-08-16] MEDS: LORazepam 2 MG/ML VIAL IVP PRN ×3 (05:55→23:22)
[2018-08-16] MEDS: DOCUSATE SODIUM 250 MG CAPSULE PO SCH ×2 (09:33→20:15)
[2018-08-16] MEDS: PREGABALIN 25 MG CAPSULE (LYRICA) PO SCH ×2 (09:33→20:15)
[2018-08-16] MEDS: NIFEDIPINE 30 MG TAB.ER.24 PO SCH ×2 (09:34→20:15)
[2018-08-16] MEDS: DOXYCYCLINE HYCLATE 100 MG CAPSULE PO SCH ×2 (09:35→20:15)
[2018-08-16] MEDS: MINERAL OIL/PETROLATUM,WHITE 113 GM CREAM.GM. TP SCH (09:36)
[2018-08-16] MEDS: CEFEPIME 1 GM in D5W 50 ML IV SCH (17:31)
[2018-08-16] MEDS: DULoxetine HCL 30 MG CAPSULE.DR (CYMBALTA) PO SCH (20:16)
[2018-08-16] MEDS: INSULIN GLARGINE 100 UNITS/ML 10 ML VIAL SUBCUT SCH (20:19)
[2018-08-17 00:33] VITALS: BP_SYST 121
[2018-08-17] MEDS: HYDROmorphone 2 MG/ML VIAL IVP PRN ×4 (01:28→20:54)
[2018-08-17] MEDS: HYDROcodone/ACETAMIN 10-325 MG TAB PO SCH ×3 (05:12→17:57)
[2018-08-17] MEDS: DIPHENHYDRAMINE INJ 50 MG/ML VIAL IVP PRN ×3 (05:12→15:35)
[2018-08-17] MEDS: LORazepam 2 MG/ML VIAL IVP PRN ×2 (05:13→18:04)
[2018-08-17 08:00] VITALS: BP_SYST 102
[2018-08-17] MEDS: DOCUSATE SODIUM 250 MG CAPSULE PO SCH ×2 (08:15→20:53)
[2018-08-17] MEDS: DOXYCYCLINE HYCLATE 100 MG CAPSULE PO SCH ×2 (08:15→20:52)
[2018-08-17] MEDS: PREGABALIN 25 MG CAPSULE (LYRICA) PO SCH ×2 (08:15→20:53)
[2018-08-17] MEDS: NIFEDIPINE 30 MG TAB.ER.24 PO SCH ×2 (08:19→20:53)
[2018-08-17 12:49] VITALS: BP_SYST 139
[2018-08-17 16:33] VITALS: BP_SYST 139
[2018-08-17] MEDS: MINERAL OIL/PETROLATUM,WHITE 113 GM CREAM.GM. TP SCH (17:01)
[2018-08-17] MEDS ORDERED: CEFEPIME 1 GM in D5W 50 ML IV SCH (17:30)
[2018-08-17] MEDS: INSULIN GLARGINE 100 UNITS/ML 10 ML VIAL SUBCUT SCH (20:47)
[2018-08-17] MEDS: DULoxetine HCL 30 MG CAPSULE.DR (CYMBALTA) PO SCH (20:52)
[2018-08-17 20:59] VITALS: BP_SYST 134
[2018-08-17 23:21] VITALS: BP_SYST 149
[2018-08-18] MEDS: HYDROcodone/ACETAMIN 10-325 MG TAB PO SCH ×3 (00:20→11:37)
[2018-08-18] MEDS: DIPHENHYDRAMINE INJ 50 MG/ML VIAL IVP PRN ×4 (00:21→12:48)
[2018-08-18] MEDS: HYDROmorphone 2 MG/ML VIAL IVP PRN ×2 (02:52→11:38)
[2018-08-18] MEDS: INSULIN LISPRO SLIDING SCALE 100 UNITS/ML VIAL (humaLOG) SUBCUT PRN (05:57)
[2018-08-18 08:00] VITALS: BP_SYST 120
[2018-08-18] MEDS: NIFEDIPINE 30 MG TAB.ER.24 PO SCH (08:29)
[2018-08-18 08:30] LABS: BASOPHILS # (AUTO) 0.1 K/uL (0.0-0.2); BASOPHILS % (AUTO) 1.2 % (0.0-2.0); EOSINOPHILS # (AUTO) 0.7 K/uL (0.0-0.4); EOSINOPHILS % (AUTO) 8.8 % (0.0-4.0); HEMATOCRIT 29.1 % (36-48); HEMOGLOBIN 9.5 g/dL (12.0-16.0); LYMPHOCYTES # (AUTO) 1.1 K/uL (1.0-5.5); LYMPHOCYTES % (AUTO) 13.4 % (20.5-51.5); MEAN CORPUSCULAR HEMOGLOBIN 32 pg (27-31); MEAN CORPUSCULAR HGB CONC 33 % (32-36); MEAN CORPUSCULAR VOLUME 98 fL (79.0-98.0); MONOCYTES # (AUTO) 0.2 K/uL (0.0-1.0); MONOCYTES % (AUTO) 2.4 % (1.7-9.3); NEUTROPHILS # (AUTO) 5.8 K/uL (1.8-7.7); NEUTROPHILS % (AUTO) 74.2 % (40.0-70.0); PLATELET COUNT (AUTO) 171 K/uL (130-430); RED BLOOD CELL COUNT(AUTO) 2.98 MIL/uL (4.2-6.2); RED CELL DISTRIBUTION WIDTH 17.3 % (9.0-15.0); WHITE BLOOD COUNT (AUTO) 7.9 K/uL (4.8-10.8)
[2018-08-18] MEDS: DOXYCYCLINE HYCLATE 100 MG CAPSULE PO SCH (08:37)
[2018-08-18] MEDS: PREGABALIN 25 MG CAPSULE (LYRICA) PO SCH (08:38)
[2018-08-18] MEDS: DOCUSATE SODIUM 250 MG CAPSULE PO SCH (08:38)
[2018-08-18] MEDS: LORazepam 2 MG/ML VIAL IVP PRN (08:38)
[2018-08-18] MEDS: MINERAL OIL/PETROLATUM,WHITE 113 GM CREAM.GM. TP SCH (08:38)
[2018-08-18 08:53] LABS: ALBUMIN 3.2 g/dL (3.4-4.8); CALCIUM 9.6 mg/dL (8.4-11.0); CREATININE 4.24 mg/dL (0.55-1.30); PHOSPHORUS 4.7 mg/dL (2.7-4.5); POTASSIUM 4.4 mmol/L (3.5-5.1); TOTAL BILIRUBIN 1.1 mg/dL (0.0-1.0)
[2018-08-18 12:52] VITALS: BP_SYST 134
[2018-08-18 14:32] VITALS: BP_SYST 120
[2018-08-18 15:21] VITALS: BP_SYST 147
[2018-08-18] MEDS ORDERED: CYM30 PO (16:04)
[2018-08-18] MEDS ORDERED: LYR25 PO (16:04)
[2018-08-18] MEDS ORDERED: AMOX-520 PO (16:05)
== END 2018-08-18 16:35 | disposition home health service (06) | DRG 682 ==
LOC: SED 05:33 → STU 09:00 → SMU 08-13 22:20
PROVIDERS: ADMIT Internal Medicine; ATTEND Internal Medicine
PROC: 5A1D70Z Performance of Urinary Filtration, Intermittent, Less than 6 Hours Per Day (ICD-10-PCS; principal; 2018-08-12)
PROC: 5A1D70Z Performance of Urinary Filtration, Intermittent, Less than 6 Hours Per Day (ICD-10-PCS; 2018-08-14)
PROC: 5A1D70Z Performance of Urinary Filtration, Intermittent, Less than 6 Hours Per Day (ICD-10-PCS; 2018-08-16)
PROC: 5A1D70Z Performance of Urinary Filtration, Intermittent, Less than 6 Hours Per Day (ICD-10-PCS; 2018-08-18)
DX: I12.0 Hypertensive chronic kidney disease with stage 5 chronic kidney disease or end stage renal disease (principal); N18.6 End stage renal disease; L97.919 Non-pressure chronic ulcer of unspecified part of right lower leg with unspecified severity; F11.20 Opioid dependence, uncomplicated; L03.115 Cellulitis of right lower limb; L03.116 Cellulitis of left lower limb; E87.5 Hyperkalemia; E10.621 Type 1 diabetes mellitus with foot ulcer; E10.51 Type 1 diabetes mellitus with diabetic peripheral angiopathy without gangrene; E10.622 Type 1 diabetes mellitus with other skin ulcer; E10.22 Type 1 diabetes mellitus with diabetic chronic kidney disease; Z66 Do not resuscitate; E10.42 Type 1 diabetes mellitus with diabetic polyneuropathy; D63.8 Anemia in other chronic diseases classified elsewhere; E21.3 Hyperparathyroidism, unspecified; G89.4 Chronic pain syndrome; E10.43 Type 1 diabetes mellitus with diabetic autonomic (poly)neuropathy; E10.649 Type 1 diabetes mellitus with hypoglycemia without coma; K31.84 Gastroparesis; T40.2X5A Adverse effect of other opioids, initial encounter; Y92.89 Other specified places as the place of occurrence of the external cause; Z79.4 Long term (current) use of insulin; Z86.14 Personal history of Methicillin resistant Staphylococcus aureus infection; Z91.14 Patient's other noncompliance with medication regimen; Z91.19 Patient's noncompliance with other medical treatment and regimen; Z99.2 Dependence on renal dialysis; Z88.8 Allergy status to other drugs, medicaments and biological substances; Z91.040 Latex allergy status; Z79.899 Other long term (current) drug therapy
CPT/HCPCS: 36415; 71045; 80048; 80053; 82962; 83036; 83690-TC; 83880; 84100-TC; 84132-TC; 84443-TC; 84484; 85025; 87081; 90935; 90937; 93005; 96374; 96375; 99291; G0378; J0692; J1170; J1200; J1815; J2060; J3010; J7030; J7050; J7060

== ENCOUNTER 2018-08-22 23:37 | Emergency (ER) | payer OTHER ==
[~2018-08-22] VITALS: Ht 165.1 cm; Wt 63.5 kg
[~2018-08-22 23:37] MED LIST changes: +AMOX-520 PO; +CYM30 PO; -DOXY100C PO; +GABA-531 PO; -HYDR2TAB4 PO; +HYDR4TAB57 PO; +LYR25 PO; -NEU400 PO
[2018-08-22 23:48] VITALS: BP_SYST 159
[2018-08-23] MEDS ORDERED: ONDANSETRON HCL 4 MG/2 ML VIAL IVP ONE (00:15)
[2018-08-23] MEDS ORDERED: fentaNYL CITRATE/PF 100 MCG/2 ML AMP IVP ONE (00:15)
[2018-08-23] MEDS ORDERED: DIPHENHYDRAMINE INJ 50 MG/ML VIAL IVP ONE ×3 (00:30→03:45)
[2018-08-23 00:32] LABS: BASOPHILS # (AUTO) 0.1 K/uL (0.0-0.2); BASOPHILS % (AUTO) 0.7 % (0.0-2.0); EOSINOPHILS # (AUTO) 0.8 K/uL (0.0-0.4); EOSINOPHILS % (AUTO) 9.9 % (0.0-4.0); HEMATOCRIT 32.5 % (36-48); HEMOGLOBIN 10.3 g/dL (12.0-16.0); LYMPHOCYTES # (AUTO) 1.7 K/uL (1.0-5.5); LYMPHOCYTES % (AUTO) 21.5 % (20.5-51.5); MEAN CORPUSCULAR HEMOGLOBIN 32 pg (27-31); MEAN CORPUSCULAR HGB CONC 32 % (32-36); MEAN CORPUSCULAR VOLUME 100 fL (79.0-98.0); MONOCYTES # (AUTO) 0.5 K/uL (0.0-1.0); MONOCYTES % (AUTO) 6.7 % (1.7-9.3); NEUTROPHILS # (AUTO) 4.9 K/uL (1.8-7.7); NEUTROPHILS % (AUTO) 61.2 % (40.0-70.0); PLATELET COUNT (AUTO) 160 K/uL (130-430); RED BLOOD CELL COUNT(AUTO) 3.26 MIL/uL (4.2-6.2); RED CELL DISTRIBUTION WIDTH 17.6 % (9.0-15.0)
[2018-08-23 00:35] LABS: ANION GAP 9 (5-15); CALCIUM 9.2 mg/dL (8.4-11.0); CHLORIDE 96 mmol/L (98-107); CREATININE 4.51 mg/dL (0.55-1.30); GLUCOSE 213 mg/dL (70-99); POTASSIUM 4.6 mmol/L (3.5-5.1); SODIUM SERUM 135 mmol/L (136-145); UREA NITROGEN, BLOOD 33 mg/dL (8-21)
[2018-08-23] MEDS ORDERED: DIPHENHYDRAMINE INJ 50 MG/ML VIAL ONE (00:39)
[2018-08-23 00:42] LABS: ALANINE AMINOTRANSFERASE 22 U/L (12-78); ALBUMIN 3.7 g/dL (3.4-4.8); ASPARTATE AMINOTRANSFERASE 19 U/L (10-37); GFR AFRICAN AMERICAN 15 mL/min (>90); LIPASE 51 U/L (73-393); TOTAL BILIRUBIN 0.9 mg/dL (0.0-1.0)
[2018-08-23 00:43] LABS: ALCOHOL, BLOOD < 3 mg/dL (<10)
[2018-08-23] MEDS ORDERED: MORPHINE 2 MG/ML INJ. SYRINGE IVP ONE (02:15)
[2018-08-23 06:00] VITALS: BP_SYST 152
[2018-11-08] MEDS ORDERED: DOCU-144 PO (14:39)
[2018-11-08] MEDS ORDERED: POLY17PO4 PO (14:39)
== END 2018-08-23 06:00 | disposition home or self-care (01) ==
LOC: SED 23:37
DX: E10.43 Type 1 diabetes mellitus with diabetic autonomic (poly)neuropathy (principal); K31.84 Gastroparesis; I13.2 Hypertensive heart and chronic kidney disease with heart failure and with stage 5 chronic kidney disease, or end stage renal disease; E10.22 Type 1 diabetes mellitus with diabetic chronic kidney disease; N18.6 End stage renal disease; I50.9 Heart failure, unspecified; Z86.2 Personal history of diseases of the blood and blood-forming organs and certain disorders involving the immune mechanism; Z90.49 Acquired absence of other specified parts of digestive tract; Z91.040 Latex allergy status; Z88.8 Allergy status to other drugs, medicaments and biological substances; Z79.899 Other long term (current) drug therapy
CPT/HCPCS: 36415; 71045; 74176; 80053; 82550; 83690; 84703; 85025; 93005; 96374; 96375; 96376; 99284; G0482; J1200; J2270; J2405; J3010; 82962

== ENCOUNTER 2018-09-07 22:10 | Inpatient (IN) | payer OTHER ==
[~2018-09-07] VITALS: Ht 170.2 cm; Wt 59.9 kg
[2018-09-07 22:18] VITALS: BP_SYST 164
[2018-09-07] MEDS ORDERED: ONDANSETRON HCL 4 MG/2 ML VIAL IVP ONE (23:15)
[2018-09-07] MEDS ORDERED: MORPHINE 4 MG/ML INJ. SYRINGE IVP ONE (23:15)
[2018-09-07 23:41] LABS: BASOPHILS # (AUTO) 0.2 K/uL (0.0-0.2); BASOPHILS % (AUTO) 3.3 % (0.0-2.0); EOSINOPHILS # (AUTO) 0.2 K/uL (0.0-0.4); EOSINOPHILS % (AUTO) 4.3 % (0.0-4.0); HEMATOCRIT 33.1 % (36-48); LYMPHOCYTES # (AUTO) 0.7 K/uL (1.0-5.5); MEAN CORPUSCULAR HEMOGLOBIN 33 pg (27-31); MEAN CORPUSCULAR HGB CONC 33 % (32-36); MEAN CORPUSCULAR VOLUME 100 fL (79.0-98.0); MONOCYTES # (AUTO) 0.4 K/uL (0.0-1.0); MONOCYTES % (AUTO) 6.5 % (1.7-9.3); NEUTROPHILS # (AUTO) 4.1 K/uL (1.8-7.7); NEUTROPHILS % (AUTO) 72.9 % (40.0-70.0); PLATELET COUNT (AUTO) 171 K/uL (130-430); RED BLOOD CELL COUNT(AUTO) 3.33 MIL/uL (4.2-6.2); RED CELL DISTRIBUTION WIDTH 17.1 % (9.0-15.0); WHITE BLOOD COUNT (AUTO) 5.6 K/uL (4.8-10.8)
[2018-09-07 23:54] LABS: CALCIUM 9.2 mg/dL (8.4-11.0); CREATININE 4.82 mg/dL (0.55-1.30); POTASSIUM 5.7 mmol/L (3.5-5.1)
[2018-09-07 23:58] LABS: INR 1.2 (0.8-1.2); PROTHROMBIN TIME 12.1 SECS (9.5-12.5)
[2018-09-08] LABS: ALBUMIN 3.6 g/dL (3.4-4.8)
[2018-09-08] MEDS ORDERED: PIPERACILLIN/TAZO 3.375 GM in NS 50 ML IV ONE (00:30)
[2018-09-08] MEDS ORDERED: PIPERACILLIN/TAZOBACTAM 3.375 GM/VIAL (ZOSYN) IV ONE ×2 (00:41)
[2018-09-08] MEDS ORDERED: INSULIN NOVALOG SUBCUT (00:48)
[2018-09-08] MEDS ORDERED: MORPHINE 4 MG/ML INJ. SYRINGE IVP ONE (01:00)
[2018-09-08] MEDS ORDERED: SODIUM POLYSTYRENE SULFONATE 15 GM/60 ML UDBTL PO ONE (01:00)
[2018-09-08] MEDS ORDERED: ONDANSETRON HCL 4 MG/2 ML VIAL IVP PRN (01:30)
[2018-09-08] MEDS ORDERED: METOCLOPRAMIDE HCL 10 MG/2 ML VIAL IVP PRN (01:30)
[2018-09-08 01:55] VITALS: BP_SYST 139
[2018-09-08 02:31] VITALS: BP_SYST 139
[2018-09-08] MEDS ORDERED: DIPHENHYDRAMINE INJ 50 MG/ML VIAL IVP PRN (06:45)
[2018-09-08] MEDS: INSULIN REGULAR, HUMAN 100 UNITS/ML, 10 ML VIAL (novoLIN R) SUBCUT PRN (07:01)
[2018-09-08 08:00] VITALS: BP_SYST 176
[2018-09-08] MEDS: HYDROmorphone 1 MG INJ. 1 MG/ML AMPUL IVP PRN ×3 (08:13→18:02)
[2018-09-08] MEDS: PANTOPRAZOLE SODIUM 40 MG/VIAL (PROTONIX) IVP SCH ×2 (08:17→21:16)
[2018-09-08 12:00] VITALS: BP_SYST 147
[2018-09-08] MEDS ORDERED: ALPRAZolam 0.25 MG TABLET PO ONE (13:15)
[2018-09-08] MEDS ORDERED: cloNIDine HCL 0.2 MG TABLET PO PRN (13:15)
[2018-09-08] MEDS: hydrALAZINE HCL 25 MG TABLET PO SCH ×2 (14:00→21:17)
[2018-09-08 18:12] VITALS: BP_SYST 108
[2018-09-08 20:00] VITALS: BP_SYST 109
[2018-09-08] MEDS ORDERED: INSULIN GLARGINE 100 UNITS/ML 10 ML VIAL SUBCUT SCH (21:00)
[2018-09-08] MEDS: PREGABALIN 25 MG CAPSULE (LYRICA) PO SCH (21:16)
[2018-09-08] MEDS: ALPRAZolam 0.25 MG TABLET PO PRN (21:18)
[2018-09-09] MEDS: HYDROmorphone 1 MG INJ. 1 MG/ML AMPUL IVP PRN ×5 (00:24→17:08)
[2018-09-09 00:41] VITALS: BP_SYST 134
[2018-09-09 06:44] LABS: CALCIUM 9.6 mg/dL (8.4-11.0); CREATININE 4.12 mg/dL (0.55-1.30); POTASSIUM 4.6 mmol/L (3.5-5.1)
[2018-09-09] MEDS: hydrALAZINE HCL 25 MG TABLET PO SCH ×2 (06:44→14:00)
[2018-09-09] MEDS: INSULIN REGULAR, HUMAN 100 UNITS/ML, 10 ML VIAL (novoLIN R) SUBCUT PRN (06:47)
[2018-09-09 08:56] VITALS: BP_SYST 126
[2018-09-09] MEDS: DIPHENHYDRAMINE INJ 50 MG/ML VIAL IVP PRN ×2 (09:05→13:07)
[2018-09-09] MEDS: PANTOPRAZOLE SODIUM 40 MG/VIAL (PROTONIX) IVP SCH (09:06)
[2018-09-09] MEDS: PREGABALIN 25 MG CAPSULE (LYRICA) PO SCH (09:06)
[2018-09-09 11:16] VITALS: BP_SYST 152
[2018-09-09] MEDS: ALPRAZolam 0.25 MG TABLET PO PRN (13:11)
[2018-09-09] MEDS ORDERED: DIPHENHYDRAMINE INJ 50 MG/ML VIAL IVP PRN (15:30)
[2018-09-09 15:33] VITALS: BP_SYST 94
[2018-09-09 18:00] VITALS: BP_SYST 123
[2018-09-09 19:13] VITALS: BP_SYST 110
== END 2018-09-09 19:36 | disposition home or self-care (01) | DRG 291 ==
LOC: SED 22:10 → STU 09-08 01:21 → SMU 09-08 18:17
PROVIDERS: ADMIT Internal Medicine; ATTEND Internal Medicine
PROC: 5A1D70Z Performance of Urinary Filtration, Intermittent, Less than 6 Hours Per Day (ICD-10-PCS; principal; 2018-09-08)
PROC: 5A1D70Z Performance of Urinary Filtration, Intermittent, Less than 6 Hours Per Day (ICD-10-PCS; 2018-09-09)
DX: I13.2 Hypertensive heart and chronic kidney disease with heart failure and with stage 5 chronic kidney disease, or end stage renal disease (principal); J18.9 Pneumonia, unspecified organism; N18.6 End stage renal disease; I50.43 Acute on chronic combined systolic (congestive) and diastolic (congestive) heart failure; F11.20 Opioid dependence, uncomplicated; R18.8 Other ascites; Q61.3 Polycystic kidney, unspecified; K31.84 Gastroparesis; E87.5 Hyperkalemia; D63.8 Anemia in other chronic diseases classified elsewhere; F41.9 Anxiety disorder, unspecified; L30.9 Dermatitis, unspecified; N05.9 Unspecified nephritic syndrome with unspecified morphologic changes; G89.29 Other chronic pain; E10.22 Type 1 diabetes mellitus with diabetic chronic kidney disease; E10.40 Type 1 diabetes mellitus with diabetic neuropathy, unspecified; E10.43 Type 1 diabetes mellitus with diabetic autonomic (poly)neuropathy; Z88.8 Allergy status to other drugs, medicaments and biological substances; Z91.040 Latex allergy status; Z79.4 Long term (current) use of insulin; Z79.899 Other long term (current) drug therapy; Z91.15 Patient's noncompliance with renal dialysis; Z91.14 Patient's other noncompliance with medication regimen
CPT/HCPCS: 36415; 71045; 80048; 80053; 82962; 83605; 83690-TC; 83880; 84484; 85025; 85610-TC; 85730-TC; 87040-TC; 87081; 93005; 96365; 96375; 96376; 99285; C9113; J1170; J1200; J1815; J2270; J2405; J2543; J7030

== ENCOUNTER 2018-09-10 15:12 | Emergency (ER) | payer OTHER ==
[~2018-09-10] VITALS: Ht 172.7 cm; Wt 70.3 kg
[2018-09-10 15:12] VITALS: BP_SYST 190
[~2018-09-10 15:12] MED LIST changes: -AMOX-520 PO; -CYM30 PO; -HYDR4TAB57 PO; +INSULIN NOVALOG SUBCUT; -LORA-259 PO
[2018-09-10 16:49] VITALS: BP_SYST 172
== END 2018-09-10 16:48 | disposition home or self-care (01) ==
LOC: SED 15:12
DX: S92.422A Displaced fracture of distal phalanx of left great toe, initial encounter for closed fracture (principal); S92.412A Displaced fracture of proximal phalanx of left great toe, initial encounter for closed fracture; I13.2 Hypertensive heart and chronic kidney disease with heart failure and with stage 5 chronic kidney disease, or end stage renal disease; E10.22 Type 1 diabetes mellitus with diabetic chronic kidney disease; N18.6 End stage renal disease; I50.9 Heart failure, unspecified; Z99.2 Dependence on renal dialysis; Z86.2 Personal history of diseases of the blood and blood-forming organs and certain disorders involving the immune mechanism; Z90.49 Acquired absence of other specified parts of digestive tract; Z88.8 Allergy status to other drugs, medicaments and biological substances; Z91.040 Latex allergy status; Z79.899 Other long term (current) drug therapy; Z79.4 Long term (current) use of insulin; X58.XXXA Exposure to other specified factors, initial encounter; Y93.89 Activity, other specified; Y92.89 Other specified places as the place of occurrence of the external cause; Y99.8 Other external cause status
CPT/HCPCS: 99283

== ENCOUNTER 2018-09-11 21:06 | Inpatient (IN) | payer OTHER ==
[~2018-09-11] VITALS: Ht 170.2 cm; Wt 69.9 kg
[2018-09-11 21:12] VITALS: BP_SYST 180
--- NOTE | 2018-09-11 21:25 | NUR ---
Patient to ER bed 06 to gown for evaluation. Side rails up. Report given to AMANDA Alonzo
[2018-09-11] MEDS ORDERED: MORPHINE 4 MG/ML INJ. SYRINGE IVP ONE (21:30)
[2018-09-11] MEDS ORDERED: ONDANSETRON HCL 4 MG/2 ML VIAL IVP ONE (21:30)
[2018-09-11] MEDS ORDERED: DICYCLOMINE HCL 20 MG/2 ML AMP IM ONE (21:30)
--- NOTE | 2018-09-11 21:33 | NUR ---
Dr. Sultana bedside for Pt eval
--- NOTE | 2018-09-11 21:35 | NUR ---
Pt C/O Left great toe pain and chronic abdominal pain. Pt has seen in the ED yesterday for toe fracture and has hx of gastroparesis. Denies any chest pain, shortness of breath or any other symptoms at this time. Will continue to monitor.
[2018-09-11] MEDS ORDERED: DIPHENHYDRAMINE INJ 50 MG/ML VIAL IVP ONE (21:45)
[2018-09-11 21:50] LABS: BASOPHILS % (AUTO) 0.6 % (0.0-2.0); EOSINOPHILS # (AUTO) 0.2 K/uL (0.0-0.4); EOSINOPHILS % (AUTO) 2.7 % (0.0-4.0); HEMATOCRIT 33.2 % (36-48); HEMOGLOBIN 10.5 g/dL (12.0-16.0); LYMPHOCYTES # (AUTO) 1.2 K/uL (1.0-5.5); MEAN CORPUSCULAR HEMOGLOBIN 32 pg (27-31); MEAN CORPUSCULAR HGB CONC 32 % (32-36); MEAN CORPUSCULAR VOLUME 100 fL (79.0-98.0); MONOCYTES # (AUTO) 0.5 K/uL (0.0-1.0); MONOCYTES % (AUTO) 6.9 % (1.7-9.3); NEUTROPHILS # (AUTO) 5.5 K/uL (1.8-7.7); NEUTROPHILS % (AUTO) 73.8 % (40.0-70.0); PLATELET COUNT (AUTO) 149 K/uL (130-430); RED BLOOD CELL COUNT(AUTO) 3.31 MIL/uL (4.2-6.2); RED CELL DISTRIBUTION WIDTH 16.2 % (9.0-15.0); WHITE BLOOD COUNT (AUTO) 7.5 K/uL (4.8-10.8)
[2018-09-11 22:06] LABS: CALCIUM 9.6 mg/dL (8.4-11.0); CREATININE 6.16 mg/dL (0.55-1.30)
[2018-09-11 22:08] LABS: ALBUMIN 3.6 g/dL (3.4-4.8); TOTAL BILIRUBIN 1.1 mg/dL (0.0-1.0)
[2018-09-11 22:12] LABS: POTASSIUM 6.1 mmol/L (3.5-5.1)
[2018-09-11] MEDS ORDERED: cloNIDine HCL 0.1 MG TABLET PO ONE (22:15)
[2018-09-11] MEDS ORDERED: INSULIN REGULAR, HUMAN 10 UNITS/0.1 ML INJ IVP ONE (22:30)
[2018-09-11] MEDS ORDERED: ALBUTEROL SULFATE 0.083% 2.5 MG/3 ML VIAL.NEB INH ONE (22:30)
[2018-09-11] MEDS ORDERED: SODIUM POLYSTYRENE SULFONATE 15 GM/60 ML UDBTL PO ONE (22:30)
--- NOTE | 2018-09-11 22:35 | NUR ---
Pt is resting in bed. Will continue to monitor.
[2018-09-11] MEDS ORDERED: SODIUM POLYSTYRENE SULFONATE 15 GM/60 ML UDBTL ONE ×2 (23:21→23:24)
--- NOTE | 2018-09-11 23:30 | NUR ---
Pt is sleeping in bed, no acute distress noted at this time.
[2018-09-11] MEDS ORDERED: cloNIDine HCL 0.1 MG TABLET PO PRN (23:45)
--- NOTE | 2018-09-12 | NUR ---
Patient will be admitted to care of Dr. Irizarry. Admitted to telemetry unit. Will go to room 106A. Belongings list completed. Summary report printed. Report will be given at bedside.
[2018-09-12] MEDS ORDERED: HYDR-4274 PO (00:04)
--- NOTE | 2018-09-12 00:05 | NUR ---
Medication reconciliation completed with information providede by patient
--- NOTE | 2018-09-12 00:13 | NUR ---
Updated sugar is 292 after insulin administration.
--- NOTE | 2018-09-12 01:00 | NUR ---
ADMISSION NOTE Received patient from ER via jana, received report from AMANDA Alonzo. Patient admitted with diagnosis of DIZZY AND END STAGE RENAL DISEASE. Patient oriented to hospital routine, call light, toileting and safety-patient verbalized understanding.
--- NOTE | 2018-09-12 01:03 | NUR ---
ADMISSION NOTE Received patient from ER via gurney. Patient admitted with diagnosis of Dizzy & End Stage Renal Failure. Patient is awake, alert, oriented X 4. Patient oriented to hospital room, call light, toileting, pain management and safety-teach back done. Patient informed that AMANDA Sheppard will be primary nurse and that their room number is 106A. Personal belongings checked and Belongings List documented. Call light within reach.
--- NOTE | 2018-09-12 01:10 | NUR ---
Transfer to 106A via ACLS protocol. Licensed nurse present. IV present no signs or symptoms of infiltration.
--- NOTE | 2018-09-12 01:18 | NUR ---
ADMISSION NOTE Received patient from ER via gurney. Patient admitted with diagnosis of Blood Sugar Out of Control. Patient is awake, alert, oriented X 4. Patient oriented to hospital room, call light, toileting, pain management and safety-teach back done. Patient informed that AMANDA Cabezas will be primary nurse and that their room number is 122B. Personal belongings checked and Belongings List documented. Call light within reach. Addendum: 09/12/18 at 0120 by Emery Vazquez RN Disregard above note. Not for this patient.
[2018-09-12] MEDS: HYDROmorphone 1 MG INJ. 1 MG/ML AMPUL IVP PRN ×2 (01:20→05:39)
[2018-09-12 01:25] VITALS: BP_SYST 168
--- NOTE | 2018-09-12 01:30 | NUR ---
CONSULTATION PAGED/CALLED Reason for Consultation: END STAGE RENAL Person Who was Notified: VICKI Consulting Physician: VANESSA DOCTOR FATOU GUERRERO IS POOLING OPERATOR Brass Sorter Specialty: Ordering Physician: WARNER
--- NOTE | 2018-09-12 04:13 | NUR ---
Rounds: Patient is asleep, no distress. Breathing is even and unlabored on room air. Call light is with patient. Will continue to monitor.
--- NOTE | 2018-09-12 06:09 | NUR ---
Closing note: Patient is asleep, no distress. Tolerating room air. Patient received PRN Dilaudid 1 MG for complaint of left foot pain 9/10 and abdominal pain 7/10, reassessment done at this time, pain medication is effective. All needs met. Safety and fall precautions observed. Will endorse to dayshift RN.
--- NOTE | 2018-09-12 07:30 | NUR ---
AM ROUNDS: PATIENT SLEEPING,IV PAIN MEDICATIONS GIVEN BY NIGHT NURSE. CALL LIGHT WITH IN REACH. BED LOCKED AT LOWEST POSITION.BED ALARM ON. CONDITION GUARDED.
[2018-09-12 08:50] VITALS: BP_SYST 127
--- NOTE | 2018-09-12 10:46 | NUR ---
HEMODIALYSIS: HEMODIALYSIS STARTED BY [facility]. STABLE.
[2018-09-12] MEDS ORDERED: INSULIN REGULAR, HUMAN 100 UNITS/ML, 10 ML VIAL (novoLIN R) SUBCUT PRN (11:00)
[2018-09-12] MEDS ORDERED: DIPHENHYDRAMINE INJ 50 MG/ML VIAL IVP ONE (11:00)
[2018-09-12] MEDS ORDERED: DEXTROSE 50% JECT 50 ML DISP.SYRIN IVP PRN (11:00)
--- NOTE | 2018-09-12 11:08 | NUR ---
BLOOD SUGAR: BLOOD SUGAR TAKEN,NO INSULIN COVERAGE PER SLIDING SCALE.
[2018-09-12 11:27] VITALS: BP_SYST 133
--- NOTE | 2018-09-12 11:58 | NUR ---
DC TELEMETRY: DOWNGRADED PATIENT TO MEDICAL SURGICAL UNIT ORDERED.
--- NOTE | 2018-09-12 13:45 | NUR ---
hd : Hd done. stable.
--- NOTE | 2018-09-12 14:30 | NUR ---
rn rounds: patient stable during hemodialysis. no needs this time. Addendum: 09/12/18 at 1840 by Aliyah Christianson RN corrected above notes: patient stable after hemodialysis.
[2018-09-12 15:50] VITALS: BP_SYST 122
[2018-09-12] MEDS: fentaNYL CITRATE/PF 100 MCG/2 ML AMP IVP PRN ×3 (16:41→23:25)
--- NOTE | 2018-09-12 16:41 | NUR ---
Fentanyl iv: C/o left toe pain and due iv pain meds given slowly as ordered per patient's request. No problem.
--- NOTE | 2018-09-12 17:00 | NUR ---
Blood Sugar: Blood gmxux=974mw/dl,patient refused insulin coverage. aware. Addendum: 09/12/18 at 1844 by Aliyah Christianson RN corrected above notes: blood xosac=520hh/dl.
[2018-09-12] MEDS: DIPHENHYDRAMINE INJ 50 MG/ML VIAL IVP SCH (17:51)
--- NOTE | 2018-09-12 18:40 | NUR ---
end of shift: resting. patient at dinner. call light with in reach. bed locked at lowest position. continue to monitor.
--- NOTE | 2018-09-12 19:43 | NUR ---
Initial note: Received report from dayshift RN. Patient is resting in bed with eyes closed, no distress. Tolerating room air, even and unlabored respirations. IV site to left forearm is patent and benign. Call light with patient. Safety and fall precautions in place. Will continue with plan of care.
--- NOTE | 2018-09-12 20:28 | NUR ---
Pain: Patient complained of pain to left foot. Administered Fentanyl 25 MCG IVP, education provided regarding indications and side effects, understanding verbalized. Call light with patient. Will continue monitoring.
--- NOTE | 2018-09-12 23:27 | NUR ---
Pain: Patient complained of severe pain to the left foot. Fentanyl 50 MCG IVP indicated. Medication administered slowly via left forearm IV site. Call light with patient, will continue to monitor.
--- NOTE | 2018-09-13 01:00 | NUR ---
Blood sugar: Patient's blood sugar is 242. Administered 4 units regular insulin subcutaneously per sliding scale. Call light with patient, will continue monitoring.
[2018-09-13] MEDS: DIPHENHYDRAMINE INJ 50 MG/ML VIAL IVP SCH ×3 (01:01→11:44)
[2018-09-13 01:13] VITALS: BP_SYST 150
[2018-09-13] MEDS: fentaNYL CITRATE/PF 100 MCG/2 ML AMP IVP PRN ×4 (02:26→12:34)
--- NOTE | 2018-09-13 02:29 | NUR ---
Pain: Patient complained of pain 10/10 to left foot. Administered 50 MCG Fentanyl IVP as indicated to left forearm IV. Call light with patient, will continue to monitor.
--- NOTE | 2018-09-13 05:32 | NUR ---
Pain: Patient is complaining of severe left foot pain. Administered 50 MCG Fentanyl IVP via left forearm IV site as ordered for severe pain. Call light with patient, will continue monitoring.
--- NOTE | 2018-09-13 06:07 | NUR ---
Closing note: Patient is resting in bed, no distress. No complaints of pain at this time. Blood sugar this AM is 71, provided patient with apple juice, Jello, and pudding per request. All needs met. Will endorse care to daysroyer RN.
--- NOTE | 2018-09-13 08:02 | NUR ---
OPENING NOTE patient received resting in bed A&O x4, breathing is even and unlabored on room air, patient states 8/10 pain in her leg and generalized body weakness, educated patient on plan of care and call light system, will continue to monitor, safety precautions in place, call light within reach.
[2018-09-13 08:07] VITALS: BP_SYST 147
--- NOTE | 2018-09-13 09:51 | NUR ---
Nutrition Update Davey Scale 18 noted. Pt admitted for dizzy and ESRD. Diet: renal BMI: 24.1 kg/m2 RD to follow per nutrition care standards.
--- NOTE | 2018-09-13 10:12 | NUR ---
NOTES patient is resting in bed with eyes closed, no acute distress or pain is noted at this time, breathing is even and unlabored on room air, will continue to monitor, safety precautions in place, call light within reach.
[2018-09-13 12:00] VITALS: BP_SYST 148
--- NOTE | 2018-09-13 12:01 | NUR ---
BLOOD SUGAR is 189 at this time, patient refused insulin, patient stated "I don't want to be poked if my blood sugar is less than 200," no acute distress noted, will continue to monitor, safety precautions in place, call light within reach.
--- NOTE | 2018-09-13 14:53 | NUR ---
AMA: Patient does not wish to proceed with medical care recommended by dr. david. Patient given information related to possible complications, up to and including , which could occur as a result of leaving hospital at this time. Patient verbalizes understanding of risks involved leaving against medical advice. Patient has signed AMA form.
--- NOTE | 2018-09-13 15:05 | NUR ---
CONSULT REASON FOR CONSULT: FOOT PAIN PERSON I SPOKE WITH: ANG CONSULTING PHYSICIAN: DR. CHARLES (DR. MORRISON STORE STANDARDS ASSOCIATE) SUPERVISOR TYPE BAR AND SEGMENT PHONE NUMBER: [phone] ORDERING PHYSICIAN: DR. HYLTON
== END 2018-09-13 14:50 | disposition left against medical advice (07) | DRG 562 ==
LOC: SED 21:06 → STU 23:33 → SMU 09-12 11:46
PROVIDERS: ADMIT Internal Medicine Hospice and Palliative Medicine; ATTEND Internal Medicine Hospice and Palliative Medicine
PROC: 5A1D70Z Performance of Urinary Filtration, Intermittent, Less than 6 Hours Per Day (ICD-10-PCS; principal; 2018-09-12)
DX: S92.412A Displaced fracture of proximal phalanx of left great toe, initial encounter for closed fracture (principal); N18.6 End stage renal disease; I13.2 Hypertensive heart and chronic kidney disease with heart failure and with stage 5 chronic kidney disease, or end stage renal disease; F11.20 Opioid dependence, uncomplicated; E87.1 Hypo-osmolality and hyponatremia; E87.5 Hyperkalemia; E10.40 Type 1 diabetes mellitus with diabetic neuropathy, unspecified; I50.9 Heart failure, unspecified; M54.9 Dorsalgia, unspecified; G89.4 Chronic pain syndrome; E10.65 Type 1 diabetes mellitus with hyperglycemia; D63.1 Anemia in chronic kidney disease; Z53.21 Procedure and treatment not carried out due to patient leaving prior to being seen by health care provider; E10.22 Type 1 diabetes mellitus with diabetic chronic kidney disease; Z76.5 Malingerer [conscious simulation]; Z79.4 Long term (current) use of insulin; Z99.2 Dependence on renal dialysis; Z88.8 Allergy status to other drugs, medicaments and biological substances; Z91.040 Latex allergy status; Z90.49 Acquired absence of other specified parts of digestive tract; Z98.891 History of uterine scar from previous surgery; Z93.0 Tracheostomy status; W18.39XA Other fall on same level, initial encounter; Y93.89 Activity, other specified; Y92.89 Other specified places as the place of occurrence of the external cause; Y99.8 Other external cause status
CPT/HCPCS: 36415; 80053; 82009-TC; 82962; 85025; 87081; 90935; 93005; 94640; 96372; 96374; 96375; 99285; G0378; J0500; J1170; J1200; J1815; J2270; J2405; J3010; J7030; J7613

== ENCOUNTER 2018-10-08 07:05 | Inpatient (IN) | payer OTHER ==
[~2018-10-08] VITALS: Ht 170.2 cm; Wt 66.9 kg
[2018-10-08 07:05] VITALS: BP_SYST 156
[~2018-10-08 07:05] MED LIST changes: -GABA-531 PO; +HYDR-4274 PO; -LYR25 PO
--- NOTE | 2018-10-08 07:05 | NUR ---
BROUGHT BACK TO BED #6 VIA WHEELCHAIR, PLACED IN BED #6 AND TRIAGED. REPORT GIVEN TO YARED
--- NOTE | 2018-10-08 07:15 | NUR ---
Pt presents to ED c/o abd pain ,nausea and vomiting since this AM.
--- NOTE | 2018-10-08 07:30 | NUR ---
ER at bedside examining patient.
--- NOTE | 2018-10-08 07:45 | NUR ---
# 22 gauge angiocath placed to LFA. Use of asceptic technique. Opsite placed over site. Blood return noted. Flushed with 10 cc of normal saline. No evidence of infiltration noted. Patient tolerated well.
[2018-10-08] MEDS ORDERED: NACL 0.9% 1,000 ML IV ONE (07:48)
[2018-10-08] MEDS ORDERED: ONDANSETRON HCL 4 MG/2 ML VIAL IVP ONE ×2 (08:00→09:15)
[2018-10-08] MEDS ORDERED: MORPHINE 4 MG/ML INJ. SYRINGE IVP ONE ×2 (08:00→09:15)
[2018-10-08] MEDS ORDERED: DIPHENHYDRAMINE INJ 50 MG/ML VIAL IVP ONE (08:00)
[2018-10-08 08:17] LABS: BASOPHILS # (AUTO) 0.1 K/uL (0.0-0.2); BASOPHILS % (AUTO) 0.8 % (0.0-2.0); EOSINOPHILS # (AUTO) 0.3 K/uL (0.0-0.4); EOSINOPHILS % (AUTO) 3.5 % (0.0-4.0); HEMATOCRIT 38.8 % (36-48); HEMOGLOBIN 12.3 g/dL (12.0-16.0); LYMPHOCYTES # (AUTO) 1.4 K/uL (1.0-5.5); LYMPHOCYTES % (AUTO) 17.5 % (20.5-51.5); MEAN CORPUSCULAR HEMOGLOBIN 32 pg (27-31); MEAN CORPUSCULAR HGB CONC 32 % (32-36); MEAN CORPUSCULAR VOLUME 101 fL (79.0-98.0); MONOCYTES # (AUTO) 0.5 K/uL (0.0-1.0); MONOCYTES % (AUTO) 6.2 % (1.7-9.3); NEUTROPHILS # (AUTO) 5.7 K/uL (1.8-7.7); PLATELET COUNT (AUTO) 143 K/uL (130-430); RED BLOOD CELL COUNT(AUTO) 3.84 MIL/uL (4.2-6.2); WHITE BLOOD COUNT (AUTO) 7.9 K/uL (4.8-10.8)
--- NOTE | 2018-10-08 08:50 | NUR ---
Pt report psn only mildly resolving.Dr. Palacios aware.
[2018-10-08 08:56] LABS: CREATININE 4.5 mg/dL (0.55-1.30); POTASSIUM 4.9 mmol/L (3.5-5.1)
[2018-10-08 08:58] LABS: INR 1.2 (0.8-1.2)
[2018-10-08 09:00] LABS: ALBUMIN 3.6 g/dL (3.4-4.8); TOTAL BILIRUBIN 0.7 mg/dL (0.0-1.0)
[2018-10-08 09:11] LABS: CLARITY/URINE CLOUDY (CLEAR); COLOR,URINE RED (YELLOW)
[2018-10-08 09:12] LABS: BILIRUBIN,URINE NEGATIVE (NEGATIVE); BLOOD, URINE 3+ (NEGATIVE); GLUCOSE,URINE 1+ (NEGATIVE); KETONES,URINE NEGATIVE (NEGATIVE); LEUKOCYTE ESTERASE ,URINE 1+ (NEGATIVE); NITRITE, URINE NEGATIVE (NEGATIVE); PROTEIN URINE 2+ (NEGATIVE); UROBILINOGEN,URINE 0.2 (0.2-1.0)
[2018-10-08 09:13] LABS: BACTERIA,URINE FEW /HPF (None Seen); MUCUS,URINE 1+ /LPF (None Seen); RBC,URINE >100 /HPF (0-3)
--- NOTE | 2018-10-08 09:37 | NUR ---
Pt medicated for continued pain.
[2018-10-08] MEDS ORDERED: NA PHOS,M-B/NA PHOS,DI-BA 118 ML (FLEET ENEMA) RC ONE (09:45)
[2018-10-08] MEDS ORDERED: cefTRIAXone 1 GM IVPB PREMIX 50 ML IV ONE (09:45)
[2018-10-08] MEDS ORDERED: INSULIN REGULAR, HUMAN 10 UNITS/0.1 ML INJ IVP ONE (10:15)
--- NOTE | 2018-10-08 10:20 | NUR ---
Pt refused enema at this time.
--- NOTE | 2018-10-08 10:22 | NUR ---
Patient will be admitted to care of . Admitted to Telemetry unit. Will go to room 100A. Belongings list completed. Summary report printed. Report will be given at bedside.
--- NOTE | 2018-10-08 10:55 | NUR ---
ADMISSION NOTE Received patient from ER via jana, received report from YARED PATEL. Patient admitted with diagnosis of ASCITES. Patient oriented to hospital routine, call light, toileting and safety-patient verbalized understanding.
[2018-10-08 11:05] VITALS: BP_SYST 148
[2018-10-08] MEDS ORDERED: cloNIDine HCL 0.2 MG TABLET PO PRN (11:15)
[2018-10-08] MEDS ORDERED: POTASSIUM CHLORIDE 20 MEQ TAB.PRT.SR PO PRN (11:15)
[2018-10-08] MEDS ORDERED: MUPIROCIN 2% TOPICAL OINTMENT 22 GM NS PRN (11:15)
[2018-10-08] MEDS ORDERED: BISACODYL 5 MG TABLET.DR (DULCOLAX) PO ONE (11:15)
[2018-10-08] MEDS ORDERED: DOCUSATE SODIUM 100 MG CAPSULE PO PRN (11:15)
[2018-10-08] MEDS ORDERED: MILK OF MAGNESIA 30 ML UDC PO ONE (11:15)
[2018-10-08] MEDS ORDERED: ACETAMINOPHEN 325 MG TABLET PO PRN (11:15)
[2018-10-08] MEDS ORDERED: MAGNESIUM SULFATE 50 ML IV PRN (11:15)
[2018-10-08] MEDS ORDERED: ONDANSETRON HCL 4 MG/2 ML VIAL IVP PRN (11:15)
[2018-10-08] MEDS ORDERED: ZOLPIDEM TARTRATE 5 MG TABLET PO PRN (11:15)
[2018-10-08] MEDS ORDERED: hydrALAZINE HCL 25 MG TABLET PO ONE (12:00)
--- NOTE | 2018-10-08 12:00 | NUR ---
RN OPENING NOTE PATIENT'S REPORT RECEIVED FROM POOL/ RN, PATIENT WAS ASSESSED, ALERT ORIENTED X4, DENIES PAIN OR DISCOMFORT. VITAL SIGNS ARE STABLE. , PATIENT WAS ASSESSED TALKED TO DR. GUERRERO ABOUT HEMODIALYSIS TODAY, GOT THE ORDERS FOR HD. CONSENT FOR HD WAS SIGNED. PATIENT REQUESTED TO HAVE BENADRYL INJECTION. DR. GUERRERO AGREED. BED AT LOW POSITION AND CALL LIGHT WITHIN REACH, WILL CONTINUE TO MONITOR.
--- NOTE | 2018-10-08 12:08 | NUR ---
CONSULTATION PAGED/CALLED Reason for Consultation: [] ESRD Person Who was Notified: [] MERY Consulting Physician: [] DR FATOU ERIC CALL FOR DR JOHNSON Riveter Portable Machine Specialty: [] NEPHROLOGY Ordering Physician: [] DR Diego CHAMORRO
[2018-10-08] MEDS ORDERED: DIPHENHYDRAMINE INJ 50 MG/ML VIAL IM ONE (13:30)
[2018-10-08] MEDS: MORPHINE 2 MG/ML INJ. SYRINGE IVP PRN ×3 (13:40→22:18)
[2018-10-08] MEDS: cefTRIAXone 1 GM in D5W 50 ML IV SCH (13:41)
--- NOTE | 2018-10-08 14:00 | NUR ---
RN NOTE PATIENT JUST STARTED ON HD, HD NURSE BY THE BEDSIDE, PATIENT WAS GIVEN HER PAIN MEDICATION WELL ZOFRAN PER THE PATIENT'S REQUEST AND CONDITION PER THE MAR. PATIENT NOW IS PAIN FREE , SATURATING AT 95% TO 975 ON ROOM AIR. WILL CONTINUE TO MONITOR.
[2018-10-08 15:34] VITALS: BP_SYST 144
--- NOTE | 2018-10-08 16:00 | NUR ---
RN NOTE PATIENT STILL UNDER THE HD. WILL CONTINUE TO MONITOR.
--- NOTE | 2018-10-08 17:36 | NUR ---
RN NOTE PATIENT IS DONE WITH HD. TOTAL OF 3000 ML WAS TAKEN OUT, PATIENT IS ALERT ORIENTED X4, VITALS ARE NORMAL, WILL CONTINUE TO MONITOR.
--- NOTE | 2018-10-08 18:48 | NUR ---
RN CLOSING NOTE PATIENT BLOOD PRESSURE GOT INTO 177/108 PATIENT GOT HER HYDRALAZINE THAT WAS NOT GIVEN TO HER DURING DIALYSIS THIS WAS APPROVED BY DR. GUERRERO. PATIENT BLOOD PRESSURE IS 158/94. AFTER ONLY 20 MIN, WILL CONTINUE TO MONITOR THE BLOOD PRESSURE, DR. GUERRERO WAS ATTENDING THIS AND APPROVE IT. MEANWHILE PATIENT GOT HER MORPHINE FOR ABDOMINAL PAIN, PATIENT AV SHUNT WAS OOZING. A REINFORCEMENT WRAP WAS DONNE ON THE PATIENT SITE OF OOZING, THE BLOOD OOZING STOPPED, WILL CONTINUE TO MONITOR AND WILL ENDORSE TO NEXT SHIFT.
[2018-10-08 20:00] VITALS: BP_SYST 147
--- NOTE | 2018-10-08 20:00 | NUR ---
ASLEEP, BUT EASILY AROUSABLE. ALERT WHEN AWAKE. RIGHT FA AV SHUNT WITH PRESSURE DRSG AND OLD BLOOD. MULTIPLE REQUESTS.
[2018-10-08] MEDS: HEPARIN SODIUM,PORCINE 5000 UNITS/ML VIAL SUBCUT SCH (21:00)
--- NOTE | 2018-10-08 21:00 | NUR ---
ACCU-CHEK 112, NO INSULIN DUE. REFUSED HEPARIN. ASKED FOR CHOCOLATE PUDDING.
[2018-10-08] MEDS: hydrALAZINE HCL 25 MG TABLET PO SCH (21:32)
--- NOTE | 2018-10-08 22:20 | NUR ---
MORPHINE 2 MG IVP GIVEN FOR C/O ABDOMINAL PAIN.
[2018-10-08 23:14] VITALS: BP_SYST 133
--- NOTE | 2018-10-09 00:15 | NUR ---
TRANSFER OF CARE Bedside report received from dayshift nurse. Patient received in bed, sleeping, no s/s of acute distress noted. Breathing even and unlabored. Call light with patient. Bed is locked and at lowest position. Will continue to monitor.
--- NOTE | 2018-10-09 02:10 | NUR ---
PAIN Patient complained of abdominal pain at this time. PRN medication to be administered. Will continue to monitor and reassess.
[2018-10-09] MEDS: MORPHINE 2 MG/ML INJ. SYRINGE IVP PRN ×4 (02:11→14:12)
[2018-10-09] MEDS: LORazepam 2 MG/ML VIAL IVP PRN ×3 (02:16→21:16)
--- NOTE | 2018-10-09 04:00 | NUR ---
ROUNDS Patient sleeping. No signs of discomfort noted. Chest rise and fall even bilaterally. Call light with patient.
[2018-10-09] MEDS: hydrALAZINE HCL 25 MG TABLET PO SCH ×3 (06:15→21:23)
[2018-10-09] MEDS ORDERED: BISACODYL 5 MG TABLET.DR (DULCOLAX) PO ONE (06:30)
[2018-10-09] MEDS ORDERED: LACTULOSE 20 GM/30 ML UDC PO ONE (06:30)
--- NOTE | 2018-10-09 06:32 | NUR ---
CLOSING NOTES Patient in bed eyes closed, appears to be asleep. no s/s of acute distress noted. Breathing even and unlabored. IV site patent, no signs of infiltration or infection noted. All needs met throughout shift. Fall and safety precautions maintained throughout shift. Will continue to monitor until patient care is endorsed to oncoming dayshift nurse.
[2018-10-09 07:20] LABS: BASOPHILS % (AUTO) 0.5 % (0.0-2.0); EOSINOPHILS # (AUTO) 0.3 K/uL (0.0-0.4); EOSINOPHILS % (AUTO) 4.5 % (0.0-4.0); HEMATOCRIT 39.4 % (36-48); HEMOGLOBIN 12.7 g/dL (12.0-16.0); LYMPHOCYTES # (AUTO) 1.7 K/uL (1.0-5.5); LYMPHOCYTES % (AUTO) 28.5 % (20.5-51.5); MEAN CORPUSCULAR HEMOGLOBIN 32 pg (27-31); MEAN CORPUSCULAR HGB CONC 32 % (32-36); MEAN CORPUSCULAR VOLUME 100 fL (79.0-98.0); MONOCYTES # (AUTO) 0.4 K/uL (0.0-1.0); MONOCYTES % (AUTO) 6.4 % (1.7-9.3); NEUTROPHILS # (AUTO) 3.6 K/uL (1.8-7.7); NEUTROPHILS % (AUTO) 60.1 % (40.0-70.0); PLATELET COUNT (AUTO) 149 K/uL (130-430); RED BLOOD CELL COUNT(AUTO) 3.96 MIL/uL (4.2-6.2); RED CELL DISTRIBUTION WIDTH 16.3 % (9.0-15.0)
[2018-10-09 07:33] LABS: CALCIUM 10.1 mg/dL (8.4-11.0); CREATININE 4.01 mg/dL (0.55-1.30); POTASSIUM 5.4 mmol/L (3.5-5.1)
[2018-10-09 08:15] VITALS: BP_SYST 138
--- NOTE | 2018-10-09 08:15 | NUR ---
am rounds: oriented x4. Asking for pain med, not due. educated patient on the frequency of pain medication. Verbalized understanding. call light within reach.
[2018-10-09] MEDS ORDERED: DEXTROSE 50% JECT 50 ML DISP.SYRIN IVP PRN (09:00)
[2018-10-09] MEDS: HEPARIN SODIUM,PORCINE 5000 UNITS/ML VIAL SUBCUT SCH ×3 (09:00→21:00)
[2018-10-09] MEDS: METOCLOPRAMIDE HCL 10 MG/2 ML VIAL IVP SCH ×2 (09:22→16:52)
--- NOTE | 2018-10-09 10:00 | NUR ---
Lab results: Paged Dr. Palmer to report today's lab results. Awaiting for call back.
[2018-10-09 11:25] VITALS: BP_SYST 145
[2018-10-09] MEDS: INSULIN LISPRO SLIDING SCALE 100 UNITS/ML VIAL (humaLOG) SUBCUT PRN ×3 (11:55→16:50)
--- NOTE | 2018-10-09 11:55 | NUR ---
Insulin coverage: patient refused insulin coverage for BS 184. States " i don't like insulin if my sugar is below 200 ." Educated on the importance of proper management of diabetes, patient does not listen.
[2018-10-09] MEDS: cefTRIAXone 1 GM in D5W 50 ML IV SCH (11:56)
--- NOTE | 2018-10-09 13:57 | NUR ---
CONSULTATION PAGED/CALLED Reason for Consultation: Diabetic Gastroparesis Person Who was Notified: Veda Consulting Physician: Dr. Sheppard Gold Leaf Layer Specialty: GI Ordering Physician: Shaji
--- NOTE | 2018-10-09 14:55 | NUR ---
Pain Med: Patient keeps on asking for pain medication even she was told when is the next schedule for med to be given. She sleeps most of the time and asks for pain med right away when she wakes up.
--- NOTE | 2018-10-09 15:05 | NUR ---
Patient refuse to speak with CM to discuss DC planning assessment. Patient want CM to come back later.
[2018-10-09 15:51] VITALS: BP_SYST 145
[2018-10-09] MEDS ORDERED: PANTOPRAZOLE SODIUM 40 MG/VIAL (PROTONIX) IVP ONE (16:15)
[2018-10-09] MEDS ORDERED: POLYETHYLENE GLYCOL 3350, 17 GM/ POWD.PACK PO ONE (16:15)
[2018-10-09] MEDS ORDERED: SORBITOL 70% SOLUTION, 30 ML UDBTL PO ONE (16:15)
[2018-10-09] MEDS: HYDROmorphone 1 MG INJ. 1 MG/ML AMPUL IVP PRN ×2 (17:02→21:16)
--- NOTE | 2018-10-09 17:15 | NUR ---
MEDS: Patient wants to take miralax later. Seen by Dr. Sheppard and Dr. Palmer. Dialysis order for tomorrow 10/10/18 given to hilario ivy. Pain med was switched to Dilaudid due to patient's complaints of itching.
--- NOTE | 2018-10-09 18:03 | NUR ---
End of shift: Needs attended No change in assessment. Patient is sitting on the edge of the bed for dinner.
--- NOTE | 2018-10-09 19:10 | NUR ---
Opening notes Received report. Patient resting in bed eating jello. No signs of distress noted. Breathing even and unlabored. IV patent and intact, no signs of infiltration noted. No needs at this time. Call light with the patient. Safety precautions in place.
[2018-10-09 20:00] VITALS: BP_SYST 183
--- NOTE | 2018-10-09 21:44 | NUR ---
Medications Scheduled and prn medications given. Educated the action and side effects of medications. Patient verbalized understanding and tolerated well. No signs of allergic reaction noted. Patient refused heparin and insulin coverage for BS 198. Educated the importance of blood sugar maintenance. Patient verbalized understanding. Patient is ambulatory. Provided bandages and bob wrap to patient per patient request. No other needs at this time. Call light with the patient. Safety precautions in place.
--- NOTE | 2018-10-09 23:00 | NUR ---
Resting Patient resting in bed. No signs of distress noted. Breathing even and unlabored. Call light with the patient. Safety precautions in place.
--- NOTE | 2018-10-10 01:00 | NUR ---
Pain medications given. Educated the action and side effects of medications. Patient verbalized understanding and tolerated well. No signs of allergic reaction noted. No other needs at this time. Call light with the patient. Safety precautions in place.
[2018-10-10] MEDS: LORazepam 2 MG/ML VIAL IVP PRN ×3 (01:02→10:46)
[2018-10-10] MEDS: METOCLOPRAMIDE HCL 10 MG/2 ML VIAL IVP SCH ×4 (01:02→23:54)
[2018-10-10] MEDS: HYDROmorphone 1 MG INJ. 1 MG/ML AMPUL IVP PRN ×6 (01:03→22:02)
[2018-10-10 01:30] VITALS: BP_SYST 140
--- NOTE | 2018-10-10 03:00 | NUR ---
Sleeping No signs of distress noted. Breathing even and unlabored. Safety precautions in place.
--- NOTE | 2018-10-10 05:00 | NUR ---
Pain medication given. Patient tolerated well. No signs of allergic reaction noted. Call light with the patient. Safety precautions in place.
[2018-10-10] MEDS: hydrALAZINE HCL 25 MG TABLET PO SCH ×3 (05:05→20:58)
[2018-10-10 06:11] LABS: CREATININE 5.34 mg/dL (0.55-1.30); POTASSIUM 5.5 mmol/L (3.5-5.1)
[2018-10-10] MEDS: INSULIN LISPRO SLIDING SCALE 100 UNITS/ML VIAL (humaLOG) SUBCUT PRN ×2 (06:11→17:17)
[2018-10-10 06:14] LABS: BASOPHILS % (AUTO) 0.5 % (0.0-2.0); EOSINOPHILS # (AUTO) 0.3 K/uL (0.0-0.4); EOSINOPHILS % (AUTO) 5.2 % (0.0-4.0); HEMATOCRIT 36.8 % (36-48); HEMOGLOBIN 11.8 g/dL (12.0-16.0); LYMPHOCYTES # (AUTO) 1.1 K/uL (1.0-5.5); LYMPHOCYTES % (AUTO) 21.2 % (20.5-51.5); MEAN CORPUSCULAR HEMOGLOBIN 32 pg (27-31); MEAN CORPUSCULAR HGB CONC 32 % (32-36); MEAN CORPUSCULAR VOLUME 100 fL (79.0-98.0); MONOCYTES # (AUTO) 0.4 K/uL (0.0-1.0); NEUTROPHILS # (AUTO) 3.5 K/uL (1.8-7.7); NEUTROPHILS % (AUTO) 65.1 % (40.0-70.0); PLATELET COUNT (AUTO) 137 K/uL (130-430); RED CELL DISTRIBUTION WIDTH 16.4 % (9.0-15.0); WHITE BLOOD COUNT (AUTO) 5.4 K/uL (4.8-10.8)
--- NOTE | 2018-10-10 06:26 | NUR ---
Closing notes Patient sitting upright in bed, no signs of distress noted. Breathing even and unlabored. IV patent and intact, saline locked. BS 177. Patient refused insulin coverage. Educated the importance of maintaining blood sugar. Patient verbalized understanding, but still refuses. All needs met throughout the shift. Call light with the patient. Safety precautions in place. Will endorse care to day shift RN.
--- NOTE | 2018-10-10 07:48 | NUR ---
AM note patient sitting up in bed, eating breakfast, a/ox4, asking for pain medication, informed her of pain medication schedule/frequency, she verbalized understanding, states,"I will wait," patient asking nurse to come back for vital signs and assessment, will follow up, educated her to use call light for assistance and informed her she is to have hemodialysis today, patient verbalized understanding, bed in lowest position, two side rails up, call light within reach, fall and aspiration precautions in place.
[2018-10-10] MEDS: PANTOPRAZOLE SODIUM 40 MG/VIAL (PROTONIX) IVP SCH (08:38)
[2018-10-10] MEDS: HEPARIN SODIUM,PORCINE 5000 UNITS/ML VIAL SUBCUT SCH ×2 (08:45→21:00)
[2018-10-10] MEDS: POLYETHYLENE GLYCOL 3350, 17 GM/ POWD.PACK PO SCH (08:45)
--- NOTE | 2018-10-10 08:48 | NUR ---
Medication patient resting in bed, allowed for assessment and vital signs at this time, educated on scheduled and PRN medication uses and potential side effects, patient verbalized understanding, patient refused Heparin and Miralax she states, "I have been walking around and having a lot of bowel movements," educated on medications uses and benefits, she verbalized understanding and still refused, IV line is patent and infusing well, patient tolerated well, continuing to monitor, bed in lowest position, two side rails up, call light within reach, fall and aspiration precautions in place.
[2018-10-10 08:59] VITALS: BP_SYST 165
--- NOTE | 2018-10-10 10:15 | NUR ---
Dr. Girard rounds informed of patient requests for Benadryl, informed that patient is refusing medications, will follow up with any new orders. Addendum: 10/10/18 at 1035 by Felix Koenig RN Also informed MD, unable to obtain urine screen at this time. No further orders.
--- NOTE | 2018-10-10 10:25 | NUR ---
Hemodialysis nurse at bedside, continuing to monitor patient.
[2018-10-10] MEDS: DIPHENHYDRAMINE HCL 25 MG CAPSULE PO PRN ×2 (10:46→23:49)
--- NOTE | 2018-10-10 10:54 | NUR ---
RN rounds/Medication patient resting in bed, awake, educated on PRN Benadryl and Ativan uses and potential side effects, she verbalized understanding and tolerated well, IV line is patent and infusing well. Blood glucose checked, patient requires insulin coverage but states," not right now, will follow up with patient. Hemodialysis continuing, patient is tolerating well, bed in lowest position, two side rails up, call light within reach, fall and aspiration precautions in place. Addendum: 10/10/18 at 1058 by Felix Koenig RN Hemodialysis nurse states to give IV Rocephin post Hemodialysis, will follow up.
[2018-10-10] MEDS: MORPHINE 2 MG/ML INJ. SYRINGE IVP PRN ×3 (12:19→20:57)
--- NOTE | 2018-10-10 12:19 | NUR ---
Pain medication patient resting in bed, complaining of abdominal pain, asking for Dilaudid, informed her that medication is not due yet, patient agreed to have Morphine, educated on uses and potential side effects, she verbalized understanding and tolerated well, IV line is patent and infusing well, Hemodialysis continuing, patient tolerating well, bed in lowest position, two side rails up, call light within reach, fall and aspiration precautions in place. continuing to monitor. Addendum: 10/10/18 at 1221 by Felix Koenig RN Barcode malfunction - Morphine did not scan, informed pharmacy.
--- NOTE | 2018-10-10 12:20 | NUR ---
Refused Insulin educated patient on uses of insulin and how it works in the body and why she is on an insulin sliding scale, patient verbalized understanding, patient still refuses insulin coverage at this time.
[2018-10-10 12:33] VITALS: BP_SYST 144
--- NOTE | 2018-10-10 13:04 | NUR ---
Pain medication patient resting in bed, complaining of severe abdominal pain, educated on uses and potential side effects, she verbalized understanding and tolerated well, IV line is patent and infusing well, Hemodialysis continuing, patient tolerating well, bed in lowest position, two side rails up, call light within reach, fall and aspiration precautions in place. continuing to monitor.
--- NOTE | 2018-10-10 14:16 | NUR ---
RN rounds patient resting in bed, eating lunch, Hemodialysis complete, 3.5L out, patient denies pain, in stable condition, continuing to monitor, bed in lowest position, two side rails up, call light within reach, fall and aspiration precautions in place.
[2018-10-10] MEDS: cefTRIAXone 1 GM in D5W 50 ML IV SCH (14:23)
--- NOTE | 2018-10-10 14:26 | NUR ---
Medication educated on scheduled medication uses and potential side effects, she verbalized understanding and tolerated well, IV antibiotic hung and infusing well, IV line is patent. Discussed pain medication schedule with patient, she had questions about medication frequencies, educated patient, she verbalized understanding, continuing to monitor, bed in lowest position, two side rails up, call light within reach, fall and aspiration precautions in place.
--- NOTE | 2018-10-10 15:02 | NUR ---
Transfer of Care to Eliezer AMANDA, patient is in stable condition.
--- NOTE | 2018-10-10 15:03 | NUR ---
Assumed care of pt. Pt made aware when her pain med is due by KERRIE Azul.
--- NOTE | 2018-10-10 15:25 | NUR ---
Explained to pt again when she can receive her pain medications. schedule written on the white board for pt's reference.
[2018-10-10 16:15] VITALS: BP_SYST 149
--- NOTE | 2018-10-10 17:38 | NUR ---
pt in bed quite, no c/o pain. no sob. will cont to monitor.
--- NOTE | 2018-10-10 18:17 | NUR ---
CLOSING NOTES, PT HAS BEEN STABLE, HAD GOOD PAIN RELIEF FROM DILAUDID. PT HAD HD TODAY WITH 3500 ML OUT. PHOTO OF R. ARM WOUND TAKEN. WILL ENDORSE TO NIGHT RN.
--- NOTE | 2018-10-10 20:57 | NUR ---
MORPHINE/PAIN PT REPORTING MODERATE PAIN. MORPHINE 1 MG IVP ADMINISTERED. MEDICATION ACTION AND POTENTIAL SIDE EFFECTS EXPLAINED TO PT. PT VERBALIZED UNDERSTANDING. PT ENCOURAGED TO CALL FOR FURTHER ASSISTANCE, CALL LIGHT IS WITH PT. SAFETY PRECAUTIONS ARE IN PLACE. WILL MONITOR.
--- NOTE | 2018-10-10 20:58 | NUR ---
MEDICATION PASS SCHEDULED AND PRN MEDICATIONS ADMINISTERED. MEDICATION ACTIONS AND POTENTIAL SIDE EFFECTS EXPLAINED. PT VERBALIZED UNDERSTANDING. PT REFUSED HEPARIN. HEPARIN INDICATION AND IMPORTANCE IN DVT PREVENTION EXPLAINED, PT CONTINUED TO REFUSE. ACCUCHECK SHOWED BLOOD SUGAR OF 111, NO INSULIN COVERAGE INDICATED PER SLIDING SCALE. SAFETY PRECAUTIONS IN PLACE. WILL MONITOR.
--- NOTE | 2018-10-10 22:02 | NUR ---
DILAUDID/PAIN PT REPORTING SEVERE PAIN. DILAUDID 1 MG IVP ADMINISTERED. MEDICATION ACTION AND POTENTIAL SIDE EFFECTS EXPLAINED TO PT. PT VERBALIZED UNDERSTANDING. PT ENCOURAGED TO CALL FOR FURTHER ASSISTANCE, CALL LIGHT IS WITH PT. SAFETY PRECAUTIONS ARE IN PLACE. WILL MONITOR.
--- NOTE | 2018-10-10 23:49 | NUR ---
ITCHING/BENADRYL PT IS ITCHING AND REQUESTING BENADRYL. BENADRYL 25 MG PO ADMINISTERED. MEDICATION EXPLAINED TO PT. PT DENIES FURTHER NEEDS. SAFETY PRECAUTIONS IN PLACE. WILL MONITOR.
[2018-10-11 00:32] VITALS: BP_SYST 141
[2018-10-11] MEDS: MORPHINE 2 MG/ML INJ. SYRINGE IVP PRN ×3 (01:01→10:02)
[2018-10-11] MEDS: HYDROmorphone 1 MG INJ. 1 MG/ML AMPUL IVP PRN ×2 (02:23→06:24)
[2018-10-11] MEDS: hydrALAZINE HCL 25 MG TABLET PO SCH (05:03)
--- NOTE | 2018-10-11 05:03 | NUR ---
MORPHINE/PAIN PT REPORTING MODERATE PAIN TO HER BACK. MORPHINE 1 MG IVP ADMINISTERED. MEDICATION ACTION AND POTENTIAL SIDE EFFECTS EXPLAINED TO PT. PT VERBALIZED UNDERSTANDING. PT ENCOURAGED TO CALL FOR ANY ASSISTANCE, CALL LIGHT IS WITH PT. SAFETY PRECAUTIONS ARE IN PLACE. WILL MONITOR.
[2018-10-11 06:00] LABS: BASOPHILS % (AUTO) 0.4 % (0.0-2.0); EOSINOPHILS # (AUTO) 0.3 K/uL (0.0-0.4); EOSINOPHILS % (AUTO) 5.2 % (0.0-4.0); HEMATOCRIT 36.3 % (36-48); HEMOGLOBIN 11.6 g/dL (12.0-16.0); LYMPHOCYTES # (AUTO) 1.2 K/uL (1.0-5.5); LYMPHOCYTES % (AUTO) 22.4 % (20.5-51.5); MEAN CORPUSCULAR HEMOGLOBIN 32 pg (27-31); MEAN CORPUSCULAR HGB CONC 32 % (32-36); MEAN CORPUSCULAR VOLUME 100 fL (79.0-98.0); MONOCYTES # (AUTO) 0.5 K/uL (0.0-1.0); MONOCYTES % (AUTO) 9.3 % (1.7-9.3); NEUTROPHILS # (AUTO) 3.4 K/uL (1.8-7.7); NEUTROPHILS % (AUTO) 62.7 % (40.0-70.0); PLATELET COUNT (AUTO) 120 K/uL (130-430); RED BLOOD CELL COUNT(AUTO) 3.64 MIL/uL (4.2-6.2); RED CELL DISTRIBUTION WIDTH 16.4 % (9.0-15.0); WHITE BLOOD COUNT (AUTO) 5.4 K/uL (4.8-10.8)
[2018-10-11] MEDS: INSULIN LISPRO SLIDING SCALE 100 UNITS/ML VIAL (humaLOG) SUBCUT PRN (06:27)
--- NOTE | 2018-10-11 06:35 | NUR ---
CLOSING NOTE PT RESTING IN BED, AAOX4, REPORTING SEVERE BACK PAIN. PT GIVEN DILAUDID 1 MG IVP AT 0624. ACCUCHECK SHOWED BLOOD SUGAR OF 200, PT REFUSED INSULIN COVERAGE STATING, "I ONLY WANT INSULIN IF MY BLOOD SUGAR IS OVER 200." HEALTH BENEFITS OF MAINTAINING BLOOD GLUCOSE CONTROL EXPLAINED TO PT, PT CONTINUED TO REFUSE. PT UNABLE TO URINATE THROUGHOUT SHIFT FOR URINE TEST. ALL NEEDS MET DURING SHIFT. SAFETY MAINTAINED. WILL CONTINUE TO MONITOR UNTIL PT CARE IS ENDORSED TO DAY SHIFT RN.
[2018-10-11 07:25] LABS: CALCIUM 9.5 mg/dL (8.4-11.0); CREATININE 4.63 mg/dL (0.55-1.30); POTASSIUM 4.7 mmol/L (3.5-5.1)
[2018-10-11 07:30] VITALS: BP_SYST 131
--- NOTE | 2018-10-11 07:55 | NUR ---
OPENING NOTES, PT IS AAOX4, DENIES PAIN, NO SOB, NO RESP DISTRESS. SAFETY PRECAUTION IN PLACE. CALL LIGHT IN REACH. BED IN LOW POSITION. CALL LIGHT IN REACH. ENCOURAGED PT TO CALL FOR ASSIST AND PAIN MEDS. WILL CONT TO MONITOR.
[2018-10-11] MEDS: LORazepam 2 MG/ML VIAL IVP PRN (07:57)
[2018-10-11] MEDS: PANTOPRAZOLE SODIUM 40 MG/VIAL (PROTONIX) IVP SCH (08:00)
[2018-10-11] MEDS: POLYETHYLENE GLYCOL 3350, 17 GM/ POWD.PACK PO SCH (08:00)
[2018-10-11] MEDS: METOCLOPRAMIDE HCL 10 MG/2 ML VIAL IVP SCH (08:01)
[2018-10-11] MEDS: HEPARIN SODIUM,PORCINE 5000 UNITS/ML VIAL SUBCUT SCH (08:01)
--- NOTE | 2018-10-11 10:09 | NUR ---
Patient refused prn catapres for bp of 164/98. Pt stated that she will take her home medications at home as soon as she get discharged.
[2018-10-11 10:13] VITALS: BP_SYST 164
[2018-10-11 10:20] VITALS: BP_SYST 164
--- NOTE | 2018-10-11 10:49 | NUR ---
CHF F/U appointment: Patient's PCP is Paramjit Cole, and the patient has already an appointment to see him tomorrow.
--- NOTE | 2018-10-11 11:14 | NUR ---
D/C Patient Patient given medication reconciliation form and D/C instructions. Exit Care provided. Patient verbalized understanding. MD discussed with patient the results and treatment provided. Ambulatory with steady gait for discharge to home. Patient in stable condition, ID band removed. IV catheter removed, intact and dressing applied, no active bleeding. NO Rx of given. Patient educated on pain management. All belongings sent with patient. Addendum: 10/11/18 at 1115 by Chilango Lange RN PT DISCHARGE ON STABLE CONDITION.
[2018-11-08] MEDS ORDERED: DOCU-144 PO (14:39)
[2018-11-08] MEDS ORDERED: POLY17PO4 PO (14:39)
== END 2018-10-11 11:05 | disposition home or self-care (01) | DRG 73 ==
LOC: SED 07:05 → STU 10:22 → SMU 10-09 15:40
PROVIDERS: ADMIT General Practice; ATTEND General Practice
PROC: 5A1D70Z Performance of Urinary Filtration, Intermittent, Less than 6 Hours Per Day (ICD-10-PCS; principal; 2018-10-08)
PROC: 5A1D70Z Performance of Urinary Filtration, Intermittent, Less than 6 Hours Per Day (ICD-10-PCS; 2018-10-10)
DX: E10.43 Type 1 diabetes mellitus with diabetic autonomic (poly)neuropathy (principal); N17.0 Acute kidney failure with tubular necrosis; I50.43 Acute on chronic combined systolic (congestive) and diastolic (congestive) heart failure; N18.6 End stage renal disease; I13.2 Hypertensive heart and chronic kidney disease with heart failure and with stage 5 chronic kidney disease, or end stage renal disease; N39.0 Urinary tract infection, site not specified; F11.20 Opioid dependence, uncomplicated; R18.8 Other ascites; K31.84 Gastroparesis; M54.9 Dorsalgia, unspecified; D63.1 Anemia in chronic kidney disease; G89.4 Chronic pain syndrome; E10.22 Type 1 diabetes mellitus with diabetic chronic kidney disease; Z90.49 Acquired absence of other specified parts of digestive tract; Z93.1 Gastrostomy status; Z88.8 Allergy status to other drugs, medicaments and biological substances; Z91.040 Latex allergy status; Z79.899 Other long term (current) drug therapy; Z99.2 Dependence on renal dialysis; Z83.3 Family history of diabetes mellitus; Z82.49 Family history of ischemic heart disease and other diseases of the circulatory system; Z79.84 Long term (current) use of oral hypoglycemic drugs; Z79.4 Long term (current) use of insulin
CPT/HCPCS: 36415; 71045; 74018; 80048; 80053; 81000-TC; 82150-TC; 82550-TC; 82962; 83036; 83605; 83690-TC; 83735-TC; 83880; 84484; 85025; 85610-TC; 85730-TC; 87040-TC; 87081; 87086; 90935; 90937; 93005; 96365; 96375; 96376; 99285; C9113; G0378; J0696; J1170; J1200; J1644; J1815; J2060; J2270; J2405; J2765; J7030; J7060; Q0163

== ENCOUNTER 2018-10-12 07:48 | Emergency (ER) | payer OTHER ==
[~2018-10-12] VITALS: Ht 170.2 cm; Wt 69.4 kg
[2018-10-12 07:53] VITALS: BP_SYST 161
[2018-10-12] MEDS ORDERED: HYDROcodone/ACETAMIN 10-325 MG TAB PO ONE (08:15)
[2018-10-12] MEDS ORDERED: IBUPROFEN 400 MG TABLET PO ONE (08:15)
[2018-10-12] MEDS ORDERED: METOCLOPRAMIDE HCL 10 MG TABLET PO ONE (08:30)
[2018-10-12 08:44] LABS: BASOPHILS % (AUTO) 0.5 % (0.0-2.0); EOSINOPHILS # (AUTO) 0.2 K/uL (0.0-0.4); HEMATOCRIT 35.5 % (36-48); HEMOGLOBIN 11.5 g/dL (12.0-16.0); LYMPHOCYTES % (AUTO) 15.7 % (20.5-51.5); MEAN CORPUSCULAR HEMOGLOBIN 32 pg (27-31); MEAN CORPUSCULAR HGB CONC 32 % (32-36); MEAN CORPUSCULAR VOLUME 99 fL (79.0-98.0); MONOCYTES # (AUTO) 0.4 K/uL (0.0-1.0); MONOCYTES % (AUTO) 6.8 % (1.7-9.3); NEUTROPHILS # (AUTO) 4.6 K/uL (1.8-7.7); PLATELET COUNT (AUTO) 118 K/uL (130-430); RED BLOOD CELL COUNT(AUTO) 3.61 MIL/uL (4.2-6.2); RED CELL DISTRIBUTION WIDTH 16.3 % (9.0-15.0); WHITE BLOOD COUNT (AUTO) 6.2 K/uL (4.8-10.8)
[2018-10-12 09:00] LABS: INR 1.2 (0.8-1.2); PROTHROMBIN TIME 11.9 SECS (9.5-12.5)
[2018-10-12 09:10] LABS: ALBUMIN 3.7 g/dL (3.4-4.8); CALCIUM 9.6 mg/dL (8.4-11.0); CREATININE 5.25 mg/dL (0.55-1.30); POTASSIUM 4.9 mmol/L (3.5-5.1); TOTAL BILIRUBIN 0.8 mg/dL (0.0-1.0)
[2018-10-12] MEDS ORDERED: MORPHINE SULFATE 10 MG/ML VIAL IM ONE (09:30)
[2018-10-12 09:39] VITALS: BP_SYST 163
== END 2018-10-12 09:45 | disposition home or self-care (01) ==
LOC: SED 07:48
DX: M54.5 Low back pain (principal); I13.10 Hypertensive heart and chronic kidney disease without heart failure, with stage 1 through stage 4 chronic kidney disease, or unspecified chronic kidney disease; E10.22 Type 1 diabetes mellitus with diabetic chronic kidney disease; N18.9 Chronic kidney disease, unspecified; I50.9 Heart failure, unspecified; Z86.2 Personal history of diseases of the blood and blood-forming organs and certain disorders involving the immune mechanism; Z99.2 Dependence on renal dialysis; Z91.040 Latex allergy status; Z88.8 Allergy status to other drugs, medicaments and biological substances; Z79.899 Other long term (current) drug therapy
CPT/HCPCS: 36415; 71045; 74018; 80053; 82150; 83605; 83690; 84703; 85025; 85730; 85610; 96372; 99284; J2270

== ENCOUNTER 2018-11-03 18:47 | Emergency (ER) | payer OTHER ==
[~2018-11-03] VITALS: Ht 170.2 cm; Wt 77.1 kg
[2018-11-03 19:15] VITALS: BP_SYST 174
[2018-11-03] MEDS ORDERED: ONDANSETRON HCL 4 MG/2 ML VIAL IVP ONE (20:30)
[2018-11-03] MEDS ORDERED: METOCLOPRAMIDE HCL 10 MG/2 ML VIAL IVP ONE (20:30)
[2018-11-03] MEDS ORDERED: MORPHINE 4 MG/ML INJ. SYRINGE IVP ONE ×2 (20:30→22:15)
[2018-11-03 21:14] LABS: BASOPHILS % (AUTO) 0.6 % (0.0-2.0); EOSINOPHILS # (AUTO) 0.1 K/uL (0.0-0.4); EOSINOPHILS % (AUTO) 2.1 % (0.0-4.0); HEMATOCRIT 39.4 % (36-48); HEMOGLOBIN 12.8 g/dL (12.0-16.0); LYMPHOCYTES # (AUTO) 0.9 K/uL (1.0-5.5); LYMPHOCYTES % (AUTO) 14.7 % (20.5-51.5); MEAN CORPUSCULAR HEMOGLOBIN 32 pg (27-31); MEAN CORPUSCULAR HGB CONC 33 % (32-36); MEAN CORPUSCULAR VOLUME 100 fL (79.0-98.0); MONOCYTES # (AUTO) 0.3 K/uL (0.0-1.0); MONOCYTES % (AUTO) 5.4 % (1.7-9.3); NEUTROPHILS # (AUTO) 4.7 K/uL (1.8-7.7); NEUTROPHILS % (AUTO) 77.2 % (40.0-70.0); PLATELET COUNT (AUTO) 110 K/uL (130-430); RED BLOOD CELL COUNT(AUTO) 3.96 MIL/uL (4.2-6.2); RED CELL DISTRIBUTION WIDTH 16.9 % (9.0-15.0); WHITE BLOOD COUNT (AUTO) 6.1 K/uL (4.8-10.8)
[2018-11-03 21:27] LABS: CALCIUM 10.1 mg/dL (8.4-11.0); CREATININE 6.64 mg/dL (0.55-1.30)
[2018-11-03] MEDS ORDERED: DIPHENHYDRAMINE INJ 50 MG/ML VIAL IVP ONE (21:30)
[2018-11-03 21:32] LABS: ALBUMIN 4.4 g/dL (3.4-4.8); TOTAL BILIRUBIN 0.8 mg/dL (0.0-1.0)
[2018-11-03 21:34] LABS: POTASSIUM 6.1 mmol/L (3.5-5.1)
[2018-11-03] MEDS ORDERED: INSULIN REGULAR, HUMAN 10 UNITS/0.1 ML INJ IVP ONE (21:45)
[2018-11-03] MEDS ORDERED: SODIUM POLYSTYRENE SULFONATE 15 GM/60 ML UDBTL PO ONE (21:45)
[2018-11-03] MEDS ORDERED: DEXTROSE 50% JECT 50 ML DISP.SYRIN IVP ONE (21:45)
[2018-11-04 00:35] VITALS: BP_SYST 174
[2018-11-08] MEDS ORDERED: POLY17PO4 PO (14:39)
[2018-11-08] MEDS ORDERED: DOCU-144 PO (14:39)
== END 2018-11-04 01:11 | disposition home or self-care (01) ==
LOC: SED 18:47
DX: E87.5 Hyperkalemia (principal); E11.43 Type 2 diabetes mellitus with diabetic autonomic (poly)neuropathy; K31.84 Gastroparesis; I13.2 Hypertensive heart and chronic kidney disease with heart failure and with stage 5 chronic kidney disease, or end stage renal disease; E11.22 Type 2 diabetes mellitus with diabetic chronic kidney disease; N18.6 End stage renal disease; I50.9 Heart failure, unspecified; Z99.2 Dependence on renal dialysis; Z91.040 Latex allergy status; Z88.8 Allergy status to other drugs, medicaments and biological substances; Z79.4 Long term (current) use of insulin; Z79.899 Other long term (current) drug therapy
CPT/HCPCS: 36415; 71045; 80053; 83605; 83880; 85025; 87040; 93005; 96374; 96375; 96376; 99284; J1200; J1815; J2270; J2405; J2765

== ENCOUNTER 2018-11-05 02:00 | Emergency (ER) | payer OTHER ==
[~2018-11-05] VITALS: Ht 170.2 cm; Wt 70.3 kg
[2018-11-05 02:14] VITALS: BP_SYST 167
[2018-11-05 02:35] LABS: BASOPHILS % (AUTO) 0.5 % (0.0-2.0); EOSINOPHILS # (AUTO) 0.1 K/uL (0.0-0.4); HEMATOCRIT 37.9 % (36-48); HEMOGLOBIN 11.9 g/dL (12.0-16.0); LYMPHOCYTES # (AUTO) 0.8 K/uL (1.0-5.5); LYMPHOCYTES % (AUTO) 13.4 % (20.5-51.5); MEAN CORPUSCULAR HEMOGLOBIN 33 pg (27-31); MEAN CORPUSCULAR HGB CONC 32 % (32-36); MEAN CORPUSCULAR VOLUME 104 fL (79.0-98.0); MONOCYTES # (AUTO) 0.4 K/uL (0.0-1.0); MONOCYTES % (AUTO) 6.7 % (1.7-9.3); NEUTROPHILS # (AUTO) 4.5 K/uL (1.8-7.7); NEUTROPHILS % (AUTO) 78.4 % (40.0-70.0); PLATELET COUNT (AUTO) 106 K/uL (130-430); RED BLOOD CELL COUNT(AUTO) 3.64 MIL/uL (4.2-6.2); RED CELL DISTRIBUTION WIDTH 17.6 % (9.0-15.0); WHITE BLOOD COUNT (AUTO) 5.8 K/uL (4.8-10.8)
[2018-11-05 03:21] LABS: CALCIUM 9.4 mg/dL (8.4-11.0); CREATININE 5.71 mg/dL (0.55-1.30)
[2018-11-05 03:23] LABS: ALBUMIN 4.1 g/dL (3.4-4.8); TOTAL BILIRUBIN 0.7 mg/dL (0.0-1.0)
[2018-11-05 03:43] LABS: POTASSIUM 5.9 mmol/L (3.5-5.1)
[2018-11-05] MEDS ORDERED: MORPHINE 4 MG/ML INJ. SYRINGE IVP ONE (04:00)
[2018-11-05] MEDS ORDERED: ONDANSETRON HCL 4 MG/2 ML VIAL IVP ONE (04:00)
[2018-11-05] MEDS ORDERED: SODIUM POLYSTYRENE SULFONATE 15 GM/60 ML UDBTL PO ONE (04:00)
[2018-11-05] MEDS ORDERED: NACL 0.9% 1,000 ML IV ONE (04:00)
[2018-11-05] MEDS ORDERED: INSULIN REGULAR, HUMAN 10 UNITS/0.1 ML INJ IVP ONE (04:00)
[2018-11-05] MEDS ORDERED: METOCLOPRAMIDE HCL 10 MG/2 ML VIAL IVP ONE (04:00)
[2018-11-05] MEDS ORDERED: DIPHENHYDRAMINE INJ 50 MG/ML VIAL IVP ONE (04:30)
[2018-11-05] MEDS ORDERED: DIPHENHYDRAMINE INJ 50 MG/ML VIAL ONE (04:35)
[2018-11-05 06:24] VITALS: BP_SYST 166
[2018-11-08] MEDS ORDERED: POLY17PO4 PO (14:39)
[2018-11-08] MEDS ORDERED: DOCU-144 PO (14:39)
== END 2018-11-05 06:24 | disposition home or self-care (01) ==
LOC: SED 02:00
DX: E10.43 Type 1 diabetes mellitus with diabetic autonomic (poly)neuropathy (principal); K31.84 Gastroparesis; I13.11 Hypertensive heart and chronic kidney disease without heart failure, with stage 5 chronic kidney disease, or end stage renal disease; E10.22 Type 1 diabetes mellitus with diabetic chronic kidney disease; I50.9 Heart failure, unspecified; N18.6 End stage renal disease; Z99.2 Dependence on renal dialysis; Z86.2 Personal history of diseases of the blood and blood-forming organs and certain disorders involving the immune mechanism; Z88.8 Allergy status to other drugs, medicaments and biological substances; Z91.040 Latex allergy status; Z79.899 Other long term (current) drug therapy; Z79.4 Long term (current) use of insulin
CPT/HCPCS: 36415; 73080; 73502; 80053; 82962; 85025; 96361; 96374; 96375; 99284; J1200; J1815; J2270; J2405; J2765; J7030

== ENCOUNTER 2018-12-27 08:03 | Inpatient (IN) | payer OTHER ==
[2018-12-27] VITALS (14 sets, daily range): BP systolic 126–213
[~2018-12-27] VITALS: Ht 167.6 cm; Wt 69.9 kg
[~2018-12-27 08:03] MED LIST changes: +DOCU-144 PO; +POLY17PO4 PO
--- NOTE | 2018-12-27 08:03 | NUR ---
ASSISTED OUT OF CAR TO WHEELCHAIR BY SPOUSE, PLACED IN BED #5 AND TRIAGED. REPORT GIVEN TO YARED
--- NOTE | 2018-12-27 08:15 | NUR ---
pt moved from room 5 to room 1.
--- NOTE | 2018-12-27 08:16 | NUR ---
SALLY Arndt at bedside examining patient.
[2018-12-27] MEDS ORDERED: hydrALAZINE HCL 20 MG/ML VIAL IVP ONE ×3 (08:30→17:30)
[2018-12-27] MEDS ORDERED: MIDAZOLAM HCL 5 MG/5 ML VIAL IVP ONE (08:30)
--- NOTE | 2018-12-27 08:30 | NUR ---
medicated the pt with Versed 5mg, Amiodarine 150mg, and NS, per MD order.
--- NOTE | 2018-12-27 08:30 | NUR ---
pt arrives from home with c/o CP, abd pain, and "unalbe to move her muscles".
[2018-12-27] MEDS ORDERED: MIDAZOLAM HCL 5 MG/5 ML VIAL ONE (08:40)
--- NOTE | 2018-12-27 08:40 | NUR ---
Cardiazem 10mg IVP given per MD order.
[2018-12-27] MEDS ORDERED: AMIODARONE HCL 150 MG/3ML VIAL ONE (08:41)
--- NOTE | 2018-12-27 08:41 | NUR ---
preformed sync cardioversion w/ 120J for V-tach with a pulse.
--- NOTE | 2018-12-27 08:43 | NUR ---
pt converrted to ST. Current HR is 118
--- NOTE | 2018-12-27 08:43 | NUR ---
one amp of Calcium chloride given per MD order.
[2018-12-27] MEDS ORDERED: NACL 0.9% 1,000 ML IV ONE (08:45)
[2018-12-27] MEDS ORDERED: AMIODARONE HCL 150 MG in D5W 97 ML IV ONE (08:45)
[2018-12-27] MEDS ORDERED: DILTIAZEM HCL 25 MG/5 ML VIAL IVP ONE (08:45)
[2018-12-27] MEDS ORDERED: INSULIN REGULAR, HUMAN 100 UNITS/ML, 10 ML VIAL SUBCUT ONE ×2 (08:45→09:15)
[2018-12-27] MEDS ORDERED: ALBUTEROL SULFATE 0.083% 2.5 MG/3 ML VIAL.NEB INH ONE (08:46)
[2018-12-27] MEDS ORDERED: INSULIN REGULAR, HUMAN 100 UNITS/ML, 10 ML VIAL (humuLIN R) ONE (08:47)
[2018-12-27 08:48] LABS: BASOPHILS # (AUTO) 0.1 K/uL (0.0-0.2); BASOPHILS % (AUTO) 0.7 % (0.0-2.0); EOSINOPHILS # (AUTO) 0.2 K/uL (0.0-0.4); EOSINOPHILS % (AUTO) 1.6 % (0.0-4.0); HEMATOCRIT 39.5 % (36-48); LYMPHOCYTES # (AUTO) 1.3 K/uL (1.0-5.5); LYMPHOCYTES % (AUTO) 12.4 % (20.5-51.5); MEAN CORPUSCULAR HEMOGLOBIN 33 pg (27-31); MEAN CORPUSCULAR HGB CONC 33 % (32-36); MEAN CORPUSCULAR VOLUME 99 fL (79.0-98.0); MONOCYTES # (AUTO) 0.9 K/uL (0.0-1.0); MONOCYTES % (AUTO) 8.5 % (1.7-9.3); NEUTROPHILS # (AUTO) 8.1 K/uL (1.8-7.7); NEUTROPHILS % (AUTO) 76.8 % (40.0-70.0); PLATELET COUNT (AUTO) 134 K/uL (130-430); WHITE BLOOD COUNT (AUTO) 10.5 K/uL (4.8-10.8)
[2018-12-27] MEDS ORDERED: DILTIAZEM HCL 25 MG/5 ML VIAL ONE (08:51)
[2018-12-27 09:09] LABS: CALCIUM 7.9 mg/dL (8.4-11.0)
[2018-12-27] MEDS ORDERED: SODIUM POLYSTYRENE SULFONATE 15 GM/60 ML UDBTL NG ONE (09:15)
[2018-12-27] MEDS ORDERED: DEXTROSE 50% JECT 50 ML DISP.SYRIN IVP ONE (09:15)
[2018-12-27] MEDS ORDERED: ONDANSETRON HCL 4 MG/2 ML VIAL IVP ONE (09:15)
[2018-12-27 09:20] LABS: ALBUMIN 3.3 g/dL (3.4-4.8); TOTAL BILIRUBIN 0.6 mg/dL (0.0-1.0)
--- NOTE | 2018-12-27 09:20 | NUR ---
Arcadio betheagisell in [facility] - 12/27/18 at 1120 by GRETCHEN pt was placed in room when she began having episodes of V-tach. Pt is now in room 1. n
--- NOTE | 2018-12-27 09:20 | NUR ---
60mg of Kayeylate give for K of 8.0.
[2018-12-27 09:23] LABS: CREATININE 8.56 mg/dL (0.55-1.30)
[2018-12-27] MEDS ORDERED: SODIUM POLYSTYRENE SULFONATE 15 GM/60 ML UDBTL ONE (09:43)
[2018-12-27] MEDS ORDERED: MORPHINE 4 MG/ML INJ. SYRINGE IVP ONE (09:45)
--- NOTE | 2018-12-27 10:30 | NUR ---
Pt will be admiotted under the care of Dr. Palmer. Waiting for MD to call back.
--- NOTE | 2018-12-27 10:50 | NUR ---
Admission orders received from Dr. Max. Pt jass be admitted to ICU bed 3.
--- NOTE | 2018-12-27 10:55 | NUR ---
ADMITTED FROM ER DUE TO ELEVATED POTASSIUM, BUN AND CREAT. PATIENT IS AWAKE AND ALERT, NOT IN DISTRESS. COMPLAINING OF GENERALIZED PAIN, PATIENT WAS JUST MEDICATED IN ER WITH MORPHINE 4MG IVP (15 MIN PRIOR TO TRANSFER) SCOPE SHOWS SINUS RHYTHM. PATIENT PLACED COMFORTABLY IN BED.
--- NOTE | 2018-12-27 11:00 | NUR ---
Patient will be admitted to care of Dr. Max. Admitted to ICU unit. Will go to room 3. Belongings list completed. Summary report printed. Report will be given at bedside.
--- NOTE | 2018-12-27 11:15 | NUR ---
CONSENT FOR HEMODIALYSIS SIGNED BY PATIENT. HI LIFT OPERATOR AT BEDSIDE. CALL PLACED TO DR. FULLER FOR DIALYSIS ORDERS.
--- NOTE | 2018-12-27 11:30 | NUR ---
Called Dr. Beyer with a consult, spoke with Carol from the exchange
--- NOTE | 2018-12-27 12:30 | NUR ---
HEMODIALYSIS IN PROGRESS. BS - 159 MG/DL
[2018-12-27] MEDS ORDERED: HYDROcodone/ACETAMIN 5-325 MG TAB (NORCO/ VICODIN) PO PRN (12:45)
[2018-12-27] MEDS ORDERED: ACETAMINOPHEN 325 MG TABLET PO PRN (13:00)
--- NOTE | 2018-12-27 15:00 | NUR ---
DOZING AT THIS TIME, SR ON THE MONITOR.
[2018-12-27] MEDS: ALPRAZolam 0.25 MG TABLET PO PRN (17:12)
--- NOTE | 2018-12-27 17:35 | NUR ---
BP - 207/99 . CALL PLACED TO DR. DBUOSE, WITH ORDERS. APRESOLINE 10 MG IVP GIVEN ORDERED. WILL CONTINUE TO MONITOR.
--- NOTE | 2018-12-27 17:40 | NUR ---
BS - 47 mg/dl. APPLE JUICE OFFERED. WILL RECHECK BS.
[2018-12-27] MEDS: HYDROcodone/ACETAMIN 10-325 MG TAB PO SCH (18:00)
--- NOTE | 2018-12-27 18:30 | NUR ---
Repeat BS - 91 mg/dl
--- NOTE | 2018-12-27 19:30 | NUR ---
PM ASSESSMENT REPORT RECEIVED FROM NARCISA PATEL. PT RECEIVED IN BED WITH EYES CLOSED, EASILY AROUSABLE. VSS, NO S/S OF ACUTE DISTRESS NOTED. PT ON 2L NC. SR ON MONITOR. R EXTERNAL JUGULAR 18G AND R CHEST 18G TO SL. PATENT AND INTACT. RFA AV SHUNT NOTED FOR DIALYSIS ACCESS. HOB ELEVATED, BED IN LOWEST POSITION, CALL LIGHT IN REACH. WILL CONTINUE TO MONITOR PT.
--- NOTE | 2018-12-27 19:50 | NUR ---
DR. KEVIN OH AT BEDSIDE TO EVALUATE PT. NO NEW ORDERS RECEIVED AT THIS TIME.
[2018-12-27] MEDS: hydrALAZINE HCL 25 MG TABLET PO SCH (20:12)
[2018-12-27] MEDS: DOCUSATE SODIUM 100 MG CAPSULE PO SCH (20:12)
[2018-12-27] MEDS: INSULIN GLARGINE 100 UNITS/ML 10 ML VIAL SUBCUT SCH (20:17)
--- NOTE | 2018-12-27 20:40 | NUR ---
DR. DUBOSE PT C/O OF 01/11 ABD PAIN AT THIS TIME. PER MD KEEP PT NPO, GIVE REGLAN 10 MG IVP AND MORPHINE 2MG IVP. WILL CARRY OUT ORDERED.
[2018-12-27] MEDS ORDERED: METOCLOPRAMIDE HCL 10 MG/2 ML VIAL IVP ONE (20:45)
[2018-12-27] MEDS ORDERED: INSULIN GLARGINE 100 UNITS/ML 10 ML VIAL SUBCUT SCH (21:00)
[2018-12-27] MEDS ORDERED: MORPHINE 2 MG/ML INJ. SYRINGE IVP SCH (21:00)
[2018-12-27] MEDS ORDERED: METOCLOPRAMIDE HCL 10 MG/2 ML VIAL IVP SCH (21:00)
[2018-12-28] VITALS (18 sets, daily range): BP systolic 123–146
[2018-12-28] MEDS: HYDROcodone/ACETAMIN 10-325 MG TAB PO SCH ×5 (00:34→19:46)
[2018-12-28 06:00] LABS: ALBUMIN 3.1 g/dL (3.4-4.8); CALCIUM 8.7 mg/dL (8.4-11.0); CREATININE 6.29 mg/dL (0.55-1.30); POTASSIUM 3.9 mmol/L (3.5-5.1); TOTAL BILIRUBIN 0.9 mg/dL (0.0-1.0)
--- NOTE | 2018-12-28 06:15 | NUR ---
BM PT HAD SMALL BM AT THIS TIME. ADEN CARE DONE AND LINENS CHANGED. PT TOLERATED WELL. WILL CONTINUE TO MONITOR PT.
--- NOTE | 2018-12-28 07:18 | NUR ---
ENDORSEMENT BEDSIDE REPORT GIVEN TO BENITA PATEL USING SBAR APPROACH.
--- NOTE | 2018-12-28 07:25 | NUR ---
Opening Note Received bedside report from Claudia PATEL for continuation of care. Received patient awake and resting in bed, no signs or symptoms of acute distress noted. Bed locked in lowest position, bed alarm on, and call light within reach.
--- NOTE | 2018-12-28 08:15 | NUR ---
Dr. Beyer at bedside examining patient. No new orders.
[2018-12-28] MEDS: POLYETHYLENE GLYCOL 3350, 17 GM/ POWD.PACK PO SCH (09:00)
--- NOTE | 2018-12-28 09:15 | NUR ---
Spoke with Dr. Beyer regarding patient's pain. New orders received.
[2018-12-28] MEDS: FAMOTIDINE 20 MG TABLET PO SCH (09:25)
[2018-12-28] MEDS: MORPHINE 2 MG/ML INJ. SYRINGE IVP PRN ×4 (09:25→21:56)
[2018-12-28] MEDS: DOCUSATE SODIUM 100 MG CAPSULE PO SCH ×2 (09:25→21:50)
[2018-12-28] MEDS: hydrALAZINE HCL 25 MG TABLET PO SCH ×2 (09:26→21:51)
--- NOTE | 2018-12-28 09:52 | NUR ---
Nutrition Update Davey Scale 17 noted. Pt admitted for hyperkalemia, ventricular tachycardia, ESRD. Diet: NPO BMI: 24 kg/m2 RD to follow per nutrition care standards.
--- NOTE | 2018-12-28 10:20 | NUR ---
Dr. Max at bedside examining patient. New orders received.
--- NOTE | 2018-12-28 10:21 | NUR ---
Telemetry Status Per Dr. Max, patient is stable to transfer to telemetry unit. Patient will be monitored under telemetry status in ICU until hospital bed becomes available.
--- NOTE | 2018-12-28 10:30 | NUR ---
Radiology at bedside for KUB.
--- NOTE | 2018-12-28 12:10 | NUR ---
Dr. Palmer at bedside examining patient. No new orders.
[2018-12-28] MEDS: INSULIN LISPRO SLIDING SCALE 100 UNITS/ML VIAL (humaLOG) SUBCUT PRN ×3 (12:41→21:55)
[2018-12-28] MEDS ORDERED: D5W 1,000 ML IV PRN (14:30)
[2018-12-28] MEDS ORDERED: DEXTROSE 50%-WATER 50 ML DISP.SYRIN IVP PRN (14:30)
[2018-12-28] MEDS ORDERED: GLUCOSE 15 GM GEL (in 37.5 GM TUBE) PO PRN (14:30)
--- NOTE | 2018-12-28 14:50 | NUR ---
Spoke with Dr. Max regarding KUB results. New orders received.
[2018-12-28] MEDS ORDERED: BISACODYL 10 MG/SUPPOSITORY RC ONE ×2 (15:00→17:00)
--- NOTE | 2018-12-28 15:45 | NUR ---
Endorsed report to Jennifer WEEMS RN using SBAR approach for continuation of care.
--- NOTE | 2018-12-28 15:50 | NUR ---
patient brought to unit got telephone report by Ashwin, patient is resting in bed, no signs of distress, on 2L nasal cannula, educated head control clerk light system, patient requested for apple juice, asked to turn off the lights so she can rest, no other needs addressed at this time, fall/safety precautions in place.
--- NOTE | 2018-12-28 18:45 | NUR ---
closing note patient is resting in bed, no signs of distress, has nasal cannula on PRN, patient requested me to remove peripheral IV that was on the chest because she said it was limited her ROM of her arm, I applied pressure with it with a gauze and put a transparent dressing on it, patient refuses the scheduled norco, patient refused the insulin coverage for the 1700 blood sugar, no other needs at this time, will endorse report to the [facility] shift nurse to continue with care, patient ambulates steady to the bathroom and in the room, patient is noncompliant with her diet, fall/safety precautions in place.
--- NOTE | 2018-12-28 19:10 | NUR ---
patient says she changed her mind about the scheduled [place] patient told me and the manager night nurse that she does want her 1800 scheduled [place], I endorsed it to the manager night nurse to give her the late administration for it, she refused it when it was due at 1800 but now he wants it.
--- NOTE | 2018-12-28 21:25 | NUR ---
PATIENT NON - COMPLIANT WITH ORDERED PO DIET FOOD AT THE BEDSIDE FAMILY BRING FROM OUT SIDE .
[2018-12-28] MEDS: INSULIN GLARGINE 100 UNITS/ML 10 ML VIAL SUBCUT SCH (21:54)
[2018-12-28] MEDS: ONDANSETRON HCL 4 MG/2 ML VIAL IVP PRN (21:57)
--- NOTE | 2018-12-29 | NUR ---
MORPHINE SULFATE 2 MG IVP administer for general pain and helpful patient awake alert .
[2018-12-29 00:14] VITALS: BP_SYST 134
[2018-12-29] MEDS: HYDROcodone/ACETAMIN 10-325 MG TAB PO SCH ×4 (00:45→17:37)
--- NOTE | 2018-12-29 01:45 | NUR ---
ZOFRAN 4 MG IVP ADMINISTER FOR GI UPSET & HELPFUL .
[2018-12-29] MEDS: MORPHINE 2 MG/ML INJ. SYRINGE IVP PRN ×5 (02:01→19:30)
[2018-12-29] MEDS: ALPRAZolam 0.25 MG TABLET PO PRN (02:02)
--- NOTE | 2018-12-29 02:46 | NUR ---
XANAX 1 MG PO for anxiety per patient Request .
--- NOTE | 2018-12-29 02:48 | NUR ---
PATIENT COMPLAIN FOOD FROM OUT SIDE GAVE HER GI UPSET .
--- NOTE | 2018-12-29 02:49 | NUR ---
NORCO 10/325 MG PO GIVEN FOR PAIN ROUTINE .
--- NOTE | 2018-12-29 03:53 | NUR ---
HOURLY ROUNDING PATIENT RESTING CALL MITCHELL WITH PATIENT NO ACUTE DISTRESS CONTINUE TO MONITOR .
[2018-12-29 07:35] VITALS: BP_SYST 131
[2018-12-29 08:00] VITALS: BP_SYST 131
--- NOTE | 2018-12-29 08:00 | NUR ---
PT RESTING IN BED COMFORTABLY, IN NO DISTRESS. VSS, AFEBRILE. NO CHANGES OVERNIGHT PER REPORT. PT REC HER PRN PAIN MEDS PRIOR TO CHANGE OF SHIFT, WILL CONT TO MONITOR--CHRONIC PAIN. AWAITING DIALYSIS ORDERS FOR TODAY THEN WILL CALL TO SCHEDULE.
[2018-12-29 08:55] LABS: CALCIUM 8.7 mg/dL (8.4-11.0); POTASSIUM 4.3 mmol/L (3.5-5.1)
[2018-12-29] MEDS: hydrALAZINE HCL 25 MG TABLET PO SCH ×2 (09:00→21:25)
[2018-12-29] MEDS: FAMOTIDINE 20 MG TABLET PO SCH (09:00)
[2018-12-29] MEDS: DOCUSATE SODIUM 100 MG CAPSULE PO SCH ×2 (09:00→21:25)
[2018-12-29] MEDS: POLYETHYLENE GLYCOL 3350, 17 GM/ POWD.PACK PO SCH (09:00)
[2018-12-29 09:02] LABS: CREATININE 7.77 mg/dL (0.55-1.30)
[2018-12-29 09:07] LABS: TOTAL BILIRUBIN 0.7 mg/dL (0.0-1.0)
[2018-12-29 11:24] VITALS: BP_SYST 114
--- NOTE | 2018-12-29 12:00 | NUR ---
PT AWAKE IN BED, RN TOOK BLOOD GLUCOSE WITH WAS WDL PER LABS (118), NO INSULIN GIVEN. RN SPOKE WITH MD FULLER AT APPROX 1030AM DURING WHICH HE ORDERED DIALYSIS TODAY. COMPUTER ANALYST SUPERVISOR CALLED TO SCHEDULE FOR THIS AFTERNOON BY BRASS CLEANER, AWAITING COMPUTER ANALYST SUPERVISOR ARRIVAL. PT WITH NO CHEST PAIN, NO INCREASED SOB, NO HEADACHE, C/O GENERALIZED CHRONIC PAIN DISCUSSED HER PAIN MGMT REGIMEN, STYATED "NOTHING EVER HELPS TO GO BELOW 4-6/10 WHEN IT GETS BAD". AWARE. USING PRNS TO MANAGE PAIN WELL SCHEDULED PER EMAR..
--- NOTE | 2018-12-29 12:59 | NUR ---
Patient refused the Physical Therapy evaluation citing an upset stomach. RN present and spoke with the patient. Plan: will attempt at a later time. (Patient has been ambulating from her bed to the restroom with nursing supervision).
[2018-12-29] MEDS: ONDANSETRON HCL 4 MG/2 ML VIAL IVP PRN (15:16)
--- NOTE | 2018-12-29 15:46 | NUR ---
CONSULTATION PAGED/CALLED Reason for Consultation: [] ABD PAIN, DM GASTROPAREISIS Person Who was Notified: [] JASON Consulting Physician: [] DR Anurag FERNANDEZ Technician Telecommunication Systems Specialty: [] GI Ordering Physician: [] DR Kang DUBOSE
[2018-12-29 15:55] VITALS: BP_SYST 144
--- NOTE | 2018-12-29 16:35 | NUR ---
MD DUBOSE ORDERED GI CONSULT AND DISCUSSED POTENTIAL WORKUP WITH PT AT BEDSIDE, WHO AGREED TO ENDOSCOPY OR FURTHER GI WORKUP DETERMINED BY MD. PT RESTING IN BED, REFUSED HER NORCO PRN THIS AFTERNOON, BUT TOOK THE MORPHINE PRN IVP, ALEXSANDRA WDL. PAIN UNCHANGED FROM PRIOR NOTE, SHEET METAL ASSEMBLER AND RIVETER AND MD TEAM AWARE OF PT CHRONIC PAIN AND REQUESTS FOR IV PAIN MEDICATIONS FREQUENTLY STATING PO PAIN MEDICATIONS "DO NOT HELP ME". PT WAS GIVEN ZOFRAN PER EMAR AT 1515 R/T FEELING GI PAIN FOLLOWING EATING HER LUNCH, NO VOMITING NOTED, ENDORSES NAUSEA. AWAITING THE HIDE SELECTOR TO ARRIVE TO UNIT TO COMPLETE PT DIALYSIS ORDERED THIS AFTERNOON. WILL CONT TO MONITOR AND PROVIODE THERAPEUTIC COMMUNICATION PRN WELL MEDICATIONS PER EMAR. VSS, AFEBRILE, NO CHEST PAIN, NO VOMITING, ENDORSES PAIN AND DESIRE TO DO DIALYSIS TODAY.
--- NOTE | 2018-12-29 16:55 | NUR ---
psychotherapist social worker new pt. referral, dcpa STORE OPERATIONS MANAGER met with pt. she was tired stated she had Dialysis on Tue in ICU. She was anxious to be D/C and stated she would prefer to return home and get back on her schedule for Sat. am. She did not want to wait for Dialysis later this evening. STORE OPERATIONS MANAGER asked where she goes. Pt. stated she has a 6:30 am chair and she goes to [facility]. She is transported by [facility]. Pt. stated she is doing better just wants to return home. STORE OPERATIONS MANAGER will remain available as needed.
[2018-12-29] MEDS: INSULIN LISPRO SLIDING SCALE 100 UNITS/ML VIAL (humaLOG) SUBCUT PRN ×2 (17:38→21:29)
--- NOTE | 2018-12-29 18:32 | NUR ---
PT WITH INSTRUCTIONAL MEDIA SERVICES TECHNICIAN AT BEDSIDE TO BEGIN DIALYSIS. PT HAS TAKEN HER SCHEDULED PAIN MEDS WELL PRN TODAY. PT STATES HER PERSONAL PLAN IS TO "HOPEFULLY LEAVE" AFTER DIALYSIS, RN AND TEAM EXPLAINED TO PT THAT THERE IS NO D/C HOME ORDER FOR THIS EVENING, PT STATES SHE UNDERSTANDS AND WILL SPEAK TO HER ABOUT THIS. WILL ENDORSE PLAN TO NOC RN AT SHIFT CHANGE. PT STATES SHE MAY DECIDE TO LEAVE AMA, BUT HAS NOT YET DECIDED. HELD ALL MEDICATIONS PO AND RAEGAN HER BP TODAY R/T DIALYSIS AT PT REQUEST. SHE ALSO REFUSED HER STOOL SOFTENERS/GI MEDS THIS AM. EXPLAINED TO HER THAT WITH EHR HX OF CONSTIPATION AND HER PAIN MED REGIMEN SHE SHOULD CONSIDER [id number] HER GI MEDICATION PLAB PER THE MD TEAM AND TAKE ALL HER STOOL SOFTENERS TO PREVENT ABD PAIN AND CONSTIPATION ISSUES. GI CONSULT ORDERS FOR TOMORROW R/T POSSIBLE ENDOSCOPY PER MD (SHOULD PT REMAIN ON UNIT)
--- NOTE | 2018-12-29 21:39 | NUR ---
PAGED: PAGED DR. DUBOSE REGARDING ORDERS. SPOKE WITH TONIA
--- NOTE | 2018-12-29 21:45 | NUR ---
HEMODIALYSIS COMPLETED AT THE BEDSIDE , ALL 2100 DOSE OF PO MEDICATIONS ADMINISTER ORDERED BSG ACCU CHECK 187 MG DL , 2 UNITS OF INSULIN SUB Q. ADMINISTER PER SLIDING SCALE PATIENT AWAKE ALERT WANTING TO GO A.M.A.
--- NOTE | 2018-12-29 21:52 | NUR ---
SPOKE WITH DR DUBOSE & IRENA OH THAT PATIENT HAS SIGNED THE AMA DOCUMENT & HER RIDE IS HERE , DR DUBOSE HAS ALSO GAVE THE OK TO D/C THE RIGHT I.J. IV
== END 2018-12-29 22:30 | disposition left against medical advice (07) | DRG 291 ==
LOC: SED 08:03 → SIC 10:38 → STU 12-28 15:51
PROVIDERS: ADMIT Internal Medicine; ATTEND Internal Medicine
PROC: 5A1D70Z Performance of Urinary Filtration, Intermittent, Less than 6 Hours Per Day (ICD-10-PCS; principal; 2018-12-27)
PROC: 5A1D70Z Performance of Urinary Filtration, Intermittent, Less than 6 Hours Per Day (ICD-10-PCS; 2018-12-29)
DX: I13.2 Hypertensive heart and chronic kidney disease with heart failure and with stage 5 chronic kidney disease, or end stage renal disease (principal); N18.6 End stage renal disease; I50.43 Acute on chronic combined systolic (congestive) and diastolic (congestive) heart failure; I24.8 Other forms of acute ischemic heart disease; F11.20 Opioid dependence, uncomplicated; I47.2 Ventricular tachycardia; I48.0 Paroxysmal atrial fibrillation; E87.5 Hyperkalemia; Z99.2 Dependence on renal dialysis; E10.22 Type 1 diabetes mellitus with diabetic chronic kidney disease; E10.65 Type 1 diabetes mellitus with hyperglycemia; Z79.4 Long term (current) use of insulin; G89.4 Chronic pain syndrome; Z90.49 Acquired absence of other specified parts of digestive tract; Z91.14 Patient's other noncompliance with medication regimen; Z98.891 History of uterine scar from previous surgery; Z88.9 Allergy status to unspecified drugs, medicaments and biological substances; Z91.040 Latex allergy status; I42.9 Cardiomyopathy, unspecified
CPT/HCPCS: 36415; 71045; 74018; 80053; 82962; 83605; 83880; 84484; 85025; 87040-TC; 87081; 90935; 90937; 93005; 96361; 96372; 96374; 96375; 99291; 99292; G0378; J0282; J0360; J1815; J2250; J2270; J2405; J2765; J3490; J7030; J7613

== ENCOUNTER 2019-01-15 11:54 | Emergency (ER) | payer OTHER ==
[~2019-01-15] VITALS: Ht 170.2 cm; Wt 71.7 kg
[2019-01-15 12:09] VITALS: BP_SYST 153
--- NOTE | 2019-01-15 12:58 | NUR ---
Placed in room 3. Placed on lunchroom monitor, blood pressure machine and pulse oximeter. To gown for exam. Side rails up. Report given to Yina PATEL.
[2019-01-15 12:59] LABS: BASOPHILS # (AUTO) 0.1 K/uL (0.0-0.2); BASOPHILS % (AUTO) 0.9 % (0.0-2.0); EOSINOPHILS % (AUTO) 14.9 % (0.0-4.0); HEMATOCRIT 31.5 % (36-48); HEMOGLOBIN 10.5 g/dL (12.0-16.0); LYMPHOCYTES # (AUTO) 1.3 K/uL (1.0-5.5); LYMPHOCYTES % (AUTO) 18.5 % (20.5-51.5); MEAN CORPUSCULAR HEMOGLOBIN 33 pg (27-31); MEAN CORPUSCULAR HGB CONC 33 % (32-36); MEAN CORPUSCULAR VOLUME 99 fL (79.0-98.0); MONOCYTES # (AUTO) 0.4 K/uL (0.0-1.0); MONOCYTES % (AUTO) 5.9 % (1.7-9.3); NEUTROPHILS # (AUTO) 4.1 K/uL (1.8-7.7); NEUTROPHILS % (AUTO) 59.8 % (40.0-70.0); RED BLOOD CELL COUNT(AUTO) 3.18 MIL/uL (4.2-6.2); RED CELL DISTRIBUTION WIDTH 15.4 % (9.0-15.0); WHITE BLOOD COUNT (AUTO) 6.8 K/uL (4.8-10.8)
--- NOTE | 2019-01-15 13:00 | NUR ---
Pt brought by self, A&Ox4, pt presents to ER with abdominal pain, N/V, pt has recent fistulagrom with balloon right AC, VSS, respirations even and unlabored, afebrile, no s/s of bleeding.
[2019-01-15 13:01] LABS: PLATELET COUNT (AUTO) 79 K/uL (130-430)
--- NOTE | 2019-01-15 13:15 | NUR ---
Dr Fuentes at bedside examining patient
--- NOTE | 2019-01-15 13:15 | NUR ---
Pt states she does not produce urine anymore. Dr Fuentes awared
[2019-01-15 13:18] LABS: INR 1.2 (0.8-1.2); PROTHROMBIN TIME 11.8 SECS (9.5-12.5)
[2019-01-15 13:28] LABS: ALBUMIN 3.6 g/dL (3.4-4.8); CALCIUM 8.7 mg/dL (8.4-11.0); TOTAL BILIRUBIN 0.7 mg/dL (0.0-1.0)
[2019-01-15] MEDS ORDERED: SODIUM BICARBONATE 8.4% JECT 50 MEQ/50 ML SYRINGE IVP ONE (13:30)
[2019-01-15] MEDS ORDERED: MORPHINE 4 MG/ML INJ. SYRINGE IVP ONE (13:30)
[2019-01-15] MEDS ORDERED: CALCIUM CHLORIDE 1 GM/10 ML DISP.SYRIN (14 mEq Ca++/SYR) IVP ONE (13:30)
[2019-01-15] MEDS ORDERED: INSULIN REGULAR, HUMAN 10 UNITS/0.1 ML INJ IVP ONE ×2 (13:30→14:15)
[2019-01-15] MEDS ORDERED: SODIUM POLYSTYRENE SULFONATE 15 GM/60 ML UDBTL PO ONE (13:30)
[2019-01-15 13:35] LABS: POTASSIUM 6.1 mmol/L (3.5-5.1)
[2019-01-15 13:37] LABS: CREATININE 8.04 mg/dL (0.55-1.30)
--- NOTE | 2019-01-15 13:42 | NUR ---
Radiology at bedside for chest x-ray
--- NOTE | 2019-01-15 15:24 | NUR ---
Patient does not urinate, unable to provide urine.
[2019-01-15 15:25] VITALS: BP_SYST 142
--- NOTE | 2019-01-15 15:25 | NUR ---
Patient given written and verbal discharge instructions and verbalizes understanding. ER MD discussed with patient the results and treatment provided. Patient in stable condition. ID arm band removed. No Rx given. Patient educated on pain management and to follow up with PMD. Pain Scale 2/10 tolerable for patient. Opportunity for questions provided and answered. Medication side effect fact sheet provided.
== END 2019-01-15 15:25 | disposition home or self-care (01) ==
LOC: SED 11:54
DX: E10.65 Type 1 diabetes mellitus with hyperglycemia (principal); I13.2 Hypertensive heart and chronic kidney disease with heart failure and with stage 5 chronic kidney disease, or end stage renal disease; E10.22 Type 1 diabetes mellitus with diabetic chronic kidney disease; N18.6 End stage renal disease; I50.9 Heart failure, unspecified; Z99.2 Dependence on renal dialysis; Z79.4 Long term (current) use of insulin; Z91.040 Latex allergy status; Z88.8 Allergy status to other drugs, medicaments and biological substances; Z79.899 Other long term (current) drug therapy
CPT/HCPCS: 36415; 71045; 74018; 80053; 82150; 83605; 83690; 84703; 85025; 85610; 85730; 93005; 96374; 96375; 99284; J2270; J1815

== ENCOUNTER 2019-01-16 07:54 | Inpatient (IN) | payer OTHER ==
[~2019-01-16] VITALS: Ht 170.2 cm; Wt 71.3 kg
[2019-01-16 07:59] VITALS: BP_SYST 150
[2019-01-16 08:47] LABS: BASOPHILS # (AUTO) 0.1 K/uL (0.0-0.2); BASOPHILS % (AUTO) 1.2 % (0.0-2.0); EOSINOPHILS # (AUTO) 0.8 K/uL (0.0-0.4); EOSINOPHILS % (AUTO) 10.8 % (0.0-4.0); HEMATOCRIT 33.3 % (36-48); HEMOGLOBIN 11.1 g/dL (12.0-16.0); LYMPHOCYTES # (AUTO) 1.3 K/uL (1.0-5.5); LYMPHOCYTES % (AUTO) 16.7 % (20.5-51.5); MEAN CORPUSCULAR HEMOGLOBIN 33 pg (27-31); MEAN CORPUSCULAR HGB CONC 33 % (32-36); MEAN CORPUSCULAR VOLUME 101 fL (79.0-98.0); MONOCYTES # (AUTO) 0.3 K/uL (0.0-1.0); MONOCYTES % (AUTO) 4.6 % (1.7-9.3); NEUTROPHILS # (AUTO) 5.1 K/uL (1.8-7.7); NEUTROPHILS % (AUTO) 66.7 % (40.0-70.0); RED BLOOD CELL COUNT(AUTO) 3.31 MIL/uL (4.2-6.2); RED CELL DISTRIBUTION WIDTH 16.2 % (9.0-15.0); WHITE BLOOD COUNT (AUTO) 7.6 K/uL (4.8-10.8)
[2019-01-16 08:59] LABS: CALCIUM 8.7 mg/dL (8.4-11.0)
[2019-01-16 09:05] LABS: ALBUMIN 3.6 g/dL (3.4-4.8); TOTAL BILIRUBIN 0.7 mg/dL (0.0-1.0)
[2019-01-16 09:06] LABS: POTASSIUM 7.1 mmol/L (3.5-5.1)
[2019-01-16 09:07] LABS: CREATININE 8.86 mg/dL (0.55-1.30)
[2019-01-16] MEDS ORDERED: CALCIUM GLUCONATE 1 GM/10 ML VIAL IVP ONE (09:15)
[2019-01-16] MEDS ORDERED: INSULIN REGULAR, HUMAN 10 UNITS/0.1 ML INJ IVP ONE (09:15)
[2019-01-16] MEDS ORDERED: DEXTROSE 50% JECT 50 ML DISP.SYRIN IVP ONE (09:15)
[2019-01-16] MEDS ORDERED: SODIUM BICARBONATE 8.4% JECT 50 MEQ/50 ML SYRINGE IVP ONE (09:15)
[2019-01-16 09:23] LABS: INR 1.1 (0.8-1.2); PROTHROMBIN TIME 11.5 SECS (9.5-12.5)
[2019-01-16 09:29] LABS: PLATELET COUNT (AUTO) 163 K/uL (130-430)
[2019-01-16] MEDS ORDERED: fentaNYL CITRATE/PF 100 MCG/2 ML AMP IVP ONE (09:30)
[2019-01-16] MEDS ORDERED: KETAMINE 30 MG/3 ML SYRINGE 15 MG in NS 100 ML IV ONE (09:30)
[2019-01-16] MEDS ORDERED: KETAMINE 30 MG/3 ML SYRINGE ONE (09:50)
[2019-01-16 11:45] VITALS: BP_SYST 153
[2019-01-16] MEDS ORDERED: SORBITOL 70% SOLUTION, 30 ML UDBTL PO PRN (11:45)
[2019-01-16] MEDS ORDERED: D5W 1,000 ML IV PRN (12:00)
[2019-01-16] MEDS ORDERED: GLUCOSE 15 GM GEL (in 37.5 GM TUBE) PO PRN (12:00)
[2019-01-16] MEDS ORDERED: DEXTROSE 50%-WATER 50 ML DISP.SYRIN IVP PRN (12:00)
[2019-01-16] MEDS: hydrALAZINE HCL 25 MG TABLET PO SCH ×2 (12:56→21:26)
[2019-01-16] MEDS: HYDROmorphone 2 MG/ML VIAL IVP PRN ×3 (12:58→20:08)
[2019-01-16] MEDS ORDERED: METOCLOPRAMIDE HCL 10 MG/2 ML VIAL IVP PRN (15:30)
[2019-01-16 15:31] VITALS: BP_SYST 111
[2019-01-16 20:00] VITALS: BP_SYST 158
[2019-01-16] MEDS: DOCUSATE SODIUM 100 MG CAPSULE PO SCH (20:08)
[2019-01-16] MEDS: INSULIN REGULAR, HUMAN 100 UNITS/ML, 10 ML VIAL (humuLIN R) SUBCUT PRN (20:12)
[2019-01-16] MEDS: ALPRAZolam 0.25 MG TABLET PO PRN (21:28)
[2019-01-17] VITALS (7 sets, daily range): BP systolic 111–165
[2019-01-17] MEDS: DIPHENHYDRAMINE INJ 50 MG/ML VIAL IVP PRN ×6 (00:02→21:01)
[2019-01-17] MEDS: MORPHINE 4 MG/ML INJ. SYRINGE IVP PRN ×4 (00:02→12:38)
[2019-01-17] MEDS: hydrALAZINE HCL 25 MG TABLET PO SCH ×3 (06:07→21:04)
[2019-01-17] MEDS: ALPRAZolam 0.25 MG TABLET PO PRN (06:07)
[2019-01-17 08:27] LABS: CALCIUM 9.2 mg/dL (8.4-11.0); CREATININE 6.35 mg/dL (0.55-1.30); POTASSIUM 5.4 mmol/L (3.5-5.1)
[2019-01-17] MEDS: POLYETHYLENE GLYCOL 3350, 17 GM/ POWD.PACK PO SCH (09:17)
[2019-01-17] MEDS: DOCUSATE SODIUM 100 MG CAPSULE PO SCH ×2 (09:17→21:04)
[2019-01-17] MEDS: INSULIN REGULAR, HUMAN 100 UNITS/ML, 10 ML VIAL (humuLIN R) SUBCUT PRN (12:01)
[2019-01-17] MEDS ORDERED: MAGNESIUM CITRATE 300 ML ORAL SOLUTION PO ONE (14:45)
[2019-01-17] MEDS: MORPHINE 2 MG/ML INJ. SYRINGE IVP PRN ×2 (16:40→21:01)
[2019-01-17] MEDS ORDERED: AMOXICILLIN/CLAVULANATE POTASSIUM 875 MG TABLET PO ONE (18:15)
[2019-01-17] MEDS ORDERED: AMOXICILLIN 500 MG CAPSULE PO SCH (22:00)
[2019-01-17] MEDS ORDERED: DEXTROSE 50% JECT 50 ML DISP.SYRIN IVP ONE (22:30)
[2019-01-17] MEDS ORDERED: INSULIN REGULAR, HUMAN 100 UNITS/ML, 10 ML VIAL SUBCUT ONE (22:30)
[2019-01-17] MEDS ORDERED: CALCIUM GLUCONATE 1 GM/10 ML VIAL IVP ONE (22:30)
[2019-01-17] MEDS ORDERED: MIDAZOLAM HCL 5 MG/5 ML VIAL ONE (22:42)
[2019-01-17] MEDS ORDERED: INSULIN REGULAR, HUMAN 100 UNITS/ML, 10 ML VIAL IV ONE (22:45)
[2019-01-17] MEDS ORDERED: CALCIUM GLUCONATE 1 GM/10 ML VIAL ONE (22:46)
[2019-01-17 23:15] LABS: ANION GAP 14 (5-15); CALCIUM 10.9 mg/dL (8.4-11.0); CHLORIDE 91 mmol/L (98-107); CREATININE 7.17 mg/dL (0.55-1.30); GLUCOSE 371 mg/dL (70-99); SODIUM SERUM 128 mmol/L (136-145); UREA NITROGEN, BLOOD 57 mg/dL (8-21)
[2019-01-17 23:26] LABS: GFR AFRICAN AMERICAN 9 mL/min (>90); POTASSIUM 7.2 mmol/L (3.5-5.1)
[2019-01-18] VITALS (22 sets, daily range): BP systolic 112–153
[2019-01-18] MEDS ORDERED: SODIUM POLYSTYRENE SULFONATE 15 GM/60 ML UDBTL PO ONE
[2019-01-18] MEDS ORDERED: SODIUM POLYSTYRENE SULFONATE 15 GM/60 ML UDBTL ONE (00:13)
[2019-01-18 00:41] LABS: CALCIUM 10.6 mg/dL (8.4-11.0)
[2019-01-18 00:42] LABS: ALBUMIN 3.3 g/dL (3.4-4.8); CREATININE 7.2 mg/dL (0.55-1.30); TOTAL BILIRUBIN 0.8 mg/dL (0.0-1.0)
[2019-01-18 00:43] LABS: POTASSIUM 7.2 mmol/L (3.5-5.1)
[2019-01-18] MEDS: DIPHENHYDRAMINE INJ 50 MG/ML VIAL IVP PRN ×6 (00:56→22:12)
[2019-01-18] MEDS: MORPHINE 2 MG/ML INJ. SYRINGE IVP PRN ×6 (00:57→22:12)
[2019-01-18 05:30] LABS: BASOPHILS # (AUTO) 0.2 K/uL (0.0-0.2); BASOPHILS % (AUTO) 2.2 % (0.0-2.0); EOSINOPHILS # (AUTO) 0.2 K/uL (0.0-0.4); EOSINOPHILS % (AUTO) 2.8 % (0.0-4.0); HEMATOCRIT 33.2 % (36-48); LYMPHOCYTES # (AUTO) 0.7 K/uL (1.0-5.5); LYMPHOCYTES % (AUTO) 9.2 % (20.5-51.5); MEAN CORPUSCULAR HEMOGLOBIN 33 pg (27-31); MEAN CORPUSCULAR HGB CONC 33 % (32-36); MEAN CORPUSCULAR VOLUME 99 fL (79.0-98.0); MONOCYTES # (AUTO) 0.6 K/uL (0.0-1.0); MONOCYTES % (AUTO) 8.1 % (1.7-9.3); NEUTROPHILS # (AUTO) 5.9 K/uL (1.8-7.7); NEUTROPHILS % (AUTO) 77.7 % (40.0-70.0); PLATELET COUNT (AUTO) 114 K/uL (130-430); RED BLOOD CELL COUNT(AUTO) 3.36 MIL/uL (4.2-6.2); RED CELL DISTRIBUTION WIDTH 15.6 % (9.0-15.0); WHITE BLOOD COUNT (AUTO) 7.6 K/uL (4.8-10.8)
[2019-01-18] MEDS: hydrALAZINE HCL 25 MG TABLET PO SCH ×3 (06:41→22:10)
[2019-01-18] MEDS: AMOXICILLIN/CLAVULANATE POTASSIUM 875 MG TABLET PO SCH ×2 (08:34→22:09)
[2019-01-18] MEDS: DOCUSATE SODIUM 100 MG CAPSULE PO SCH ×2 (08:34→22:09)
[2019-01-18] MEDS: POLYETHYLENE GLYCOL 3350, 17 GM/ POWD.PACK PO SCH (08:34)
[2019-01-18] MEDS ORDERED: MORPHINE 2 MG/ML INJ. SYRINGE IVP ONE (18:30)
[2019-01-18] MEDS: INSULIN REGULAR, HUMAN 100 UNITS/ML, 10 ML VIAL (humuLIN R) SUBCUT PRN (22:12)
[2019-01-19 01:10] VITALS: BP_SYST 143
[2019-01-19] MEDS: DIPHENHYDRAMINE INJ 50 MG/ML VIAL IVP PRN ×3 (01:49→10:28)
[2019-01-19] MEDS: MORPHINE 2 MG/ML INJ. SYRINGE IVP PRN ×5 (01:50→22:05)
[2019-01-19] MEDS: hydrALAZINE HCL 25 MG TABLET PO SCH ×3 (06:33→21:58)
[2019-01-19] MEDS: INSULIN REGULAR, HUMAN 100 UNITS/ML, 10 ML VIAL (humuLIN R) SUBCUT PRN ×2 (06:35→12:30)
[2019-01-19 07:13] LABS: BASOPHILS # (AUTO) 0.1 K/uL (0.0-0.2); BASOPHILS % (AUTO) 1.4 % (0.0-2.0); EOSINOPHILS # (AUTO) 0.8 K/uL (0.0-0.4); HEMATOCRIT 32.6 % (36-48); HEMOGLOBIN 10.9 g/dL (12.0-16.0); LYMPHOCYTES # (AUTO) 1.3 K/uL (1.0-5.5); LYMPHOCYTES % (AUTO) 25.1 % (20.5-51.5); MEAN CORPUSCULAR HEMOGLOBIN 33 pg (27-31); MEAN CORPUSCULAR HGB CONC 34 % (32-36); MEAN CORPUSCULAR VOLUME 99 fL (79.0-98.0); MONOCYTES # (AUTO) 0.4 K/uL (0.0-1.0); MONOCYTES % (AUTO) 7.8 % (1.7-9.3); NEUTROPHILS # (AUTO) 2.6 K/uL (1.8-7.7); NEUTROPHILS % (AUTO) 50.7 % (40.0-70.0); PLATELET COUNT (AUTO) 107 K/uL (130-430); RED BLOOD CELL COUNT(AUTO) 3.29 MIL/uL (4.2-6.2); RED CELL DISTRIBUTION WIDTH 15.9 % (9.0-15.0); WHITE BLOOD COUNT (AUTO) 5.1 K/uL (4.8-10.8)
[2019-01-19 07:42] LABS: ALBUMIN 3.1 g/dL (3.4-4.8); CREATININE 5.67 mg/dL (0.55-1.30); PHOSPHORUS 6.7 mg/dL (2.7-4.5); POTASSIUM 4.6 mmol/L (3.5-5.1); TOTAL BILIRUBIN 0.8 mg/dL (0.0-1.0)
[2019-01-19 08:00] VITALS: BP_SYST 140
[2019-01-19 08:15] LABS: THYROID STIMULATING HORMONE 5.59 uIu/mL (0.36-3.74)
[2019-01-19] MEDS: POLYETHYLENE GLYCOL 3350, 17 GM/ POWD.PACK PO SCH (09:00)
[2019-01-19] MEDS: AMOXICILLIN/CLAVULANATE POTASSIUM 875 MG TABLET PO SCH ×2 (09:23→21:54)
[2019-01-19] MEDS: DOCUSATE SODIUM 100 MG CAPSULE PO SCH ×2 (09:23→21:56)
[2019-01-19] MEDS: ALPRAZolam 0.25 MG TABLET PO PRN (09:31)
[2019-01-19 11:26] VITALS: BP_SYST 138
[2019-01-19 15:25] VITALS: BP_SYST 110
[2019-01-19 15:29] VITALS: BP_SYST 105
[2019-01-19] MEDS ORDERED: METOCLOPRAMIDE HCL 10 MG/2 ML VIAL IVP PRN (16:45)
[2019-01-19] MEDS ORDERED: PANTOPRAZOLE SODIUM 40 MG TAB PO ONE (17:00)
[2019-01-20 00:36] VITALS: BP_SYST 146
[2019-01-20 04:30] VITALS: BP_SYST 150
[2019-01-20] MEDS: hydrALAZINE HCL 25 MG TABLET PO SCH (07:19)
[2019-01-20] MEDS: MORPHINE 2 MG/ML INJ. SYRINGE IVP PRN (07:56)
[2019-01-20] MEDS: DIPHENHYDRAMINE INJ 50 MG/ML VIAL IVP PRN (07:59)
[2019-01-20 08:00] VITALS: BP_SYST 136
[2019-01-20] MEDS: DOCUSATE SODIUM 100 MG CAPSULE PO SCH (08:58)
[2019-01-20] MEDS: AMOXICILLIN/CLAVULANATE POTASSIUM 875 MG TABLET PO SCH (08:59)
[2019-01-20] MEDS ORDERED: PANTOPRAZOLE SODIUM 40 MG TAB PO SCH (09:00)
[2019-01-20] MEDS: POLYETHYLENE GLYCOL 3350, 17 GM/ POWD.PACK PO SCH (09:00)
[2019-01-20 11:35] VITALS: BP_SYST 155; BP_SYST 159
[2019-01-20] MEDS ORDERED: AMOX-423 PO (11:50)
[2019-01-20] MEDS: INSULIN REGULAR, HUMAN 100 UNITS/ML, 10 ML VIAL (humuLIN R) SUBCUT PRN (12:26)
== END 2019-01-20 13:30 | disposition home health service (06) | DRG 640 ==
LOC: SED 07:54 → STU 10:56 → SIC 01-17 22:59 → STU 01-18 19:35
PROVIDERS: ADMIT Internal Medicine; ATTEND Internal Medicine
PROC: 5A1D70Z Performance of Urinary Filtration, Intermittent, Less than 6 Hours Per Day (ICD-10-PCS; principal; 2019-01-16)
PROC: 5A1D70Z Performance of Urinary Filtration, Intermittent, Less than 6 Hours Per Day (ICD-10-PCS; 2019-01-17)
PROC: 5A1D70Z Performance of Urinary Filtration, Intermittent, Less than 6 Hours Per Day (ICD-10-PCS; 2019-01-18)
DX: E87.5 Hyperkalemia (principal); N18.6 End stage renal disease; I13.2 Hypertensive heart and chronic kidney disease with heart failure and with stage 5 chronic kidney disease, or end stage renal disease; I47.2 Ventricular tachycardia; I50.40 Unspecified combined systolic (congestive) and diastolic (congestive) heart failure; I42.9 Cardiomyopathy, unspecified; K11.20 Sialoadenitis, unspecified; E10.22 Type 1 diabetes mellitus with diabetic chronic kidney disease; E10.43 Type 1 diabetes mellitus with diabetic autonomic (poly)neuropathy; G89.4 Chronic pain syndrome; D63.1 Anemia in chronic kidney disease; K04.7 Periapical abscess without sinus; K31.84 Gastroparesis; R13.10 Dysphagia, unspecified; Z87.01 Personal history of pneumonia (recurrent); Z91.040 Latex allergy status; Z99.2 Dependence on renal dialysis; Z79.4 Long term (current) use of insulin; Z88.8 Allergy status to other drugs, medicaments and biological substances; Z79.899 Other long term (current) drug therapy; Z90.49 Acquired absence of other specified parts of digestive tract
CPT/HCPCS: 36415; 71045; 74018; 80048; 80053; 82150-TC; 82962; 83605; 83690-TC; 83735-TC; 83880; 84100-TC; 84132-TC; 84443-TC; 84484; 84703; 85025; 85610-TC; 85730-TC; 87040-TC; 87081; 90935; 90937; 93005; 96365; 96374; 96375; 99291; G0378; J0610; J1170; J1200; J1815; J2250; J2270; J2765; J3010; J7030

== ENCOUNTER 2019-03-13 07:40 | Inpatient (IN) | payer OTHER ==
[~2019-03-13] VITALS: Ht 167.6 cm; Wt 79.5 kg
[~2019-03-13 07:40] MED LIST changes: +AMOX-423 PO
[2019-03-13 07:58] VITALS: BP_SYST 162
[2019-03-13] MEDS ORDERED: DIPHENHYDRAMINE INJ 50 MG/ML VIAL IVP ONE (08:30)
[2019-03-13] MEDS ORDERED: MORPHINE 4 MG/ML INJ. SYRINGE IVP ONE (08:30)
[2019-03-13 08:50] LABS: BASOPHILS # (AUTO) 0.1 K/uL (0.0-0.2); BASOPHILS % (AUTO) 0.6 % (0.0-2.0); EOSINOPHILS # (AUTO) 0.2 K/uL (0.0-0.4); EOSINOPHILS % (AUTO) 1.5 % (0.0-4.0); HEMATOCRIT 34.9 % (36-48); HEMOGLOBIN 11.4 g/dL (12.0-16.0); LYMPHOCYTES # (AUTO) 1.4 K/uL (1.0-5.5); LYMPHOCYTES % (AUTO) 13.6 % (20.5-51.5); MEAN CORPUSCULAR HEMOGLOBIN 33 pg (27-31); MEAN CORPUSCULAR HGB CONC 33 % (32-36); MEAN CORPUSCULAR VOLUME 102 fL (79.0-98.0); MONOCYTES # (AUTO) 0.6 K/uL (0.0-1.0); MONOCYTES % (AUTO) 5.5 % (1.7-9.3); NEUTROPHILS # (AUTO) 8.1 K/uL (1.8-7.7); NEUTROPHILS % (AUTO) 78.8 % (40.0-70.0); PLATELET COUNT (AUTO) 134 K/uL (130-430); RED BLOOD CELL COUNT(AUTO) 3.41 MIL/uL (4.2-6.2); RED CELL DISTRIBUTION WIDTH 16.8 % (9.0-15.0); WHITE BLOOD COUNT (AUTO) 10.3 K/uL (4.8-10.8)
[2019-03-13 09:06] LABS: INR 1.1 (0.8-1.2); PROTHROMBIN TIME 11.5 SECS (9.5-12.5)
[2019-03-13 09:49] LABS: CALCIUM 8.2 mg/dL (8.4-11.0); POTASSIUM 7.2 mmol/L (3.5-5.1)
[2019-03-13 09:50] LABS: ALBUMIN 3.7 g/dL (3.4-4.8); CREATININE 9.11 mg/dL (0.55-1.30); TOTAL BILIRUBIN 0.6 mg/dL (0.0-1.0)
[2019-03-13] MEDS ORDERED: CALCIUM CHLORIDE 1 GM/10ML VIAL (13.6 mEq Ca++/VIAL) IVP ONE (10:00)
[2019-03-13] MEDS ORDERED: SODIUM BICARBONATE 8.4% JECT 50 MEQ/50 ML SYRINGE IVP ONE (10:00)
[2019-03-13] MEDS ORDERED: INSULIN REGULAR, HUMAN 10 UNITS/0.1 ML INJ IVP ONE (10:00)
[2019-03-13] MEDS ORDERED: SODIUM POLYSTYRENE SULFONATE 15 GM/60 ML UDBTL PO ONE (10:00)
[2019-03-13 11:55] VITALS: BP_SYST 168
[2019-03-13] MEDS ORDERED: DIPHENHYDRAMINE INJ 50 MG/ML VIAL ONE (13:34)
[2019-03-13 15:43] VITALS: BP_SYST 143
[2019-03-13 17:36] VITALS: BP_SYST 152
[2019-03-13] MEDS: hydrALAZINE HCL 25 MG TABLET PO SCH ×2 (17:36→22:44)
[2019-03-13] MEDS: HYDROcodone/ACETAMIN 10-325 MG TAB PO PRN (17:42)
[2019-03-13 20:00] VITALS: BP_SYST 128
[2019-03-13] MEDS: DOCUSATE SODIUM 100 MG CAPSULE PO SCH (20:02)
[2019-03-13] MEDS: HYDROmorphone 1 MG INJ. 1 MG/ML AMPUL IVP PRN (20:03)
[2019-03-13] MEDS: INSULIN GLARGINE 100 UNITS/ML 10 ML VIAL SUBCUT SCH (20:03)
[2019-03-13] MEDS: ALPRAZolam 0.25 MG TABLET PO PRN (22:50)
[2019-03-14 01:42] VITALS: BP_SYST 148
[2019-03-14] MEDS: HYDROmorphone 1 MG INJ. 1 MG/ML AMPUL IVP PRN ×4 (01:58→20:36)
[2019-03-14] MEDS: hydrALAZINE HCL 25 MG TABLET PO SCH ×3 (05:50→21:30)
[2019-03-14 06:18] LABS: BASOPHILS % (AUTO) 0.6 % (0.0-2.0); EOSINOPHILS # (AUTO) 0.2 K/uL (0.0-0.4); EOSINOPHILS % (AUTO) 3.3 % (0.0-4.0); HEMATOCRIT 34.3 % (36-48); HEMOGLOBIN 11.4 g/dL (12.0-16.0); LYMPHOCYTES # (AUTO) 1.7 K/uL (1.0-5.5); LYMPHOCYTES % (AUTO) 23.3 % (20.5-51.5); MEAN CORPUSCULAR HEMOGLOBIN 33 pg (27-31); MEAN CORPUSCULAR HGB CONC 33 % (32-36); MEAN CORPUSCULAR VOLUME 100 fL (79.0-98.0); MONOCYTES # (AUTO) 0.4 K/uL (0.0-1.0); NEUTROPHILS # (AUTO) 4.8 K/uL (1.8-7.7); NEUTROPHILS % (AUTO) 66.8 % (40.0-70.0); PLATELET COUNT (AUTO) 142 K/uL (130-430); RED BLOOD CELL COUNT(AUTO) 3.42 MIL/uL (4.2-6.2); RED CELL DISTRIBUTION WIDTH 16.3 % (9.0-15.0); WHITE BLOOD COUNT (AUTO) 7.2 K/uL (4.8-10.8)
[2019-03-14 06:42] LABS: ALBUMIN 3.2 g/dL (3.4-4.8); CALCIUM 8.5 mg/dL (8.4-11.0); CREATININE 5.6 mg/dL (0.55-1.30); PHOSPHORUS 5.8 mg/dL (2.7-4.5); TOTAL BILIRUBIN 0.8 mg/dL (0.0-1.0)
[2019-03-14] MEDS: POLYETHYLENE GLYCOL 3350, 17 GM/ POWD.PACK PO SCH (08:33)
[2019-03-14] MEDS: DOCUSATE SODIUM 100 MG CAPSULE PO SCH ×2 (08:35→20:11)
[2019-03-14] MEDS: DIPHENHYDRAMINE INJ 50 MG/ML VIAL IVP PRN ×3 (09:29→20:15)
[2019-03-14 09:51] VITALS: BP_SYST 123
[2019-03-14 12:00] VITALS: BP_SYST 147
[2019-03-14] MEDS ORDERED: DEXTROSE 50% JECT 50 ML DISP.SYRIN IVP PRN (15:30)
[2019-03-14] MEDS: INSULIN REGULAR, HUMAN 100 UNITS/ML, 10 ML VIAL (humuLIN R) SUBCUT PRN (18:04)
[2019-03-14] MEDS: INSULIN GLARGINE 100 UNITS/ML 10 ML VIAL SUBCUT SCH (20:14)
[2019-03-14 20:46] VITALS: BP_SYST 133
[2019-03-15] MEDS: ALPRAZolam 0.25 MG TABLET PO PRN (00:26)
[2019-03-15 00:38] VITALS: BP_SYST 133
[2019-03-15] MEDS: HYDROmorphone 1 MG INJ. 1 MG/ML AMPUL IVP PRN ×4 (02:47→20:33)
[2019-03-15] MEDS: hydrALAZINE HCL 25 MG TABLET PO SCH ×3 (06:00→22:00)
[2019-03-15] MEDS: INSULIN REGULAR, HUMAN 100 UNITS/ML, 10 ML VIAL (humuLIN R) SUBCUT PRN ×2 (06:08→11:59)
[2019-03-15 08:00] VITALS: BP_SYST 135
[2019-03-15] MEDS: DOCUSATE SODIUM 100 MG CAPSULE PO SCH ×2 (08:14→20:32)
[2019-03-15] MEDS: DIPHENHYDRAMINE INJ 50 MG/ML VIAL IVP PRN ×3 (08:14→20:32)
[2019-03-15] MEDS: POLYETHYLENE GLYCOL 3350, 17 GM/ POWD.PACK PO SCH (08:14)
[2019-03-15 12:19] VITALS: BP_SYST 104
[2019-03-15 16:28] VITALS: BP_SYST 116
[2019-03-15] MEDS ORDERED: HYDROmorphone 1 MG INJ. 1 MG/ML AMPUL IVP ONE (16:30)
[2019-03-15] MEDS ORDERED: ONDANSETRON HCL 4 MG/2 ML VIAL IVP PRN (16:30)
[2019-03-15 20:00] VITALS: BP_SYST 137
[2019-03-15] MEDS: INSULIN GLARGINE 100 UNITS/ML 10 ML VIAL SUBCUT SCH (20:36)
[2019-03-16] VITALS: BP_SYST 139
[2019-03-16] MEDS: DIPHENHYDRAMINE INJ 50 MG/ML VIAL IVP PRN ×4 (02:34→21:29)
[2019-03-16] MEDS: HYDROmorphone 1 MG INJ. 1 MG/ML AMPUL IVP PRN ×4 (02:35→22:21)
[2019-03-16] MEDS: hydrALAZINE HCL 25 MG TABLET PO SCH ×3 (06:52→21:27)
[2019-03-16] MEDS: ALPRAZolam 0.25 MG TABLET PO PRN (06:53)
[2019-03-16 06:54] LABS: BASOPHILS % (AUTO) 0.4 % (0.0-2.0); EOSINOPHILS # (AUTO) 0.1 K/uL (0.0-0.4); HEMATOCRIT 35.8 % (36-48); HEMOGLOBIN 11.7 g/dL (12.0-16.0); LYMPHOCYTES # (AUTO) 1.5 K/uL (1.0-5.5); LYMPHOCYTES % (AUTO) 25.7 % (20.5-51.5); MEAN CORPUSCULAR HEMOGLOBIN 33 pg (27-31); MEAN CORPUSCULAR HGB CONC 33 % (32-36); MEAN CORPUSCULAR VOLUME 101 fL (79.0-98.0); MONOCYTES # (AUTO) 0.5 K/uL (0.0-1.0); MONOCYTES % (AUTO) 8.2 % (1.7-9.3); NEUTROPHILS # (AUTO) 3.8 K/uL (1.8-7.7); NEUTROPHILS % (AUTO) 63.7 % (40.0-70.0); PLATELET COUNT (AUTO) 109 K/uL (130-430); RED BLOOD CELL COUNT(AUTO) 3.54 MIL/uL (4.2-6.2); RED CELL DISTRIBUTION WIDTH 16.7 % (9.0-15.0); WHITE BLOOD COUNT (AUTO) 5.9 K/uL (4.8-10.8)
[2019-03-16] MEDS: INSULIN REGULAR, HUMAN 100 UNITS/ML, 10 ML VIAL (humuLIN R) SUBCUT PRN ×2 (06:54→21:23)
[2019-03-16 07:35] LABS: CALCIUM 9.5 mg/dL (8.4-11.0); CREATININE 5.55 mg/dL (0.55-1.30)
[2019-03-16 07:51] LABS: POTASSIUM 6.2 mmol/L (3.5-5.1)
[2019-03-16] MEDS ORDERED: SODIUM POLYSTYRENE SULFONATE 15 GM/60 ML UDBTL PO ONE (08:45)
[2019-03-16] MEDS: POLYETHYLENE GLYCOL 3350, 17 GM/ POWD.PACK PO SCH (09:02)
[2019-03-16] MEDS: DOCUSATE SODIUM 100 MG CAPSULE PO SCH ×2 (09:02→21:24)
[2019-03-16 09:23] VITALS: BP_SYST 141
[2019-03-16 12:41] VITALS: BP_SYST 149
[2019-03-16] MEDS: HYDROcodone/ACETAMIN 10-325 MG TAB PO PRN (12:53)
[2019-03-16 16:43] VITALS: BP_SYST 108
[2019-03-16 20:00] VITALS: BP_SYST 121
[2019-03-16] MEDS: INSULIN GLARGINE 100 UNITS/ML 10 ML VIAL SUBCUT SCH (21:00)
[2019-03-17 00:06] VITALS: BP_SYST 122
[2019-03-17] MEDS: DIPHENHYDRAMINE INJ 50 MG/ML VIAL IVP PRN (03:28)
[2019-03-17] MEDS: HYDROmorphone 1 MG INJ. 1 MG/ML AMPUL IVP PRN (04:26)
[2019-03-17] MEDS: hydrALAZINE HCL 25 MG TABLET PO SCH (06:45)
[2019-03-17 08:00] LABS: BASOPHILS % (AUTO) 0.6 % (0.0-2.0); EOSINOPHILS # (AUTO) 0.1 K/uL (0.0-0.4); EOSINOPHILS % (AUTO) 2.6 % (0.0-4.0); HEMATOCRIT 35.8 % (36-48); HEMOGLOBIN 11.7 g/dL (12.0-16.0); LYMPHOCYTES # (AUTO) 1.4 K/uL (1.0-5.5); MEAN CORPUSCULAR HEMOGLOBIN 33 pg (27-31); MEAN CORPUSCULAR HGB CONC 33 % (32-36); MEAN CORPUSCULAR VOLUME 101 fL (79.0-98.0); MONOCYTES # (AUTO) 0.3 K/uL (0.0-1.0); MONOCYTES % (AUTO) 5.7 % (1.7-9.3); NEUTROPHILS # (AUTO) 3.5 K/uL (1.8-7.7); NEUTROPHILS % (AUTO) 65.1 % (40.0-70.0); PLATELET COUNT (AUTO) 108 K/uL (130-430); RED BLOOD CELL COUNT(AUTO) 3.56 MIL/uL (4.2-6.2); RED CELL DISTRIBUTION WIDTH 16.2 % (9.0-15.0); WHITE BLOOD COUNT (AUTO) 5.4 K/uL (4.8-10.8)
[2019-03-17 08:14] LABS: CALCIUM 9.3 mg/dL (8.4-11.0); CREATININE 5.02 mg/dL (0.55-1.30); PHOSPHORUS 6.7 mg/dL (2.7-4.5)
[2019-03-17 08:21] LABS: POTASSIUM 5.8 mmol/L (3.5-5.1)
== END 2019-03-17 08:30 | disposition left against medical advice (07) | DRG 291 ==
LOC: SED 07:40 → STU 10:59 → SMU 03-16 04:21
PROVIDERS: ADMIT Internal Medicine; ATTEND Internal Medicine
PROC: 5A1D70Z Performance of Urinary Filtration, Intermittent, Less than 6 Hours Per Day (ICD-10-PCS; principal; 2019-03-13)
PROC: 5A1D70Z Performance of Urinary Filtration, Intermittent, Less than 6 Hours Per Day (ICD-10-PCS; 2019-03-15)
PROC: 5A1D70Z Performance of Urinary Filtration, Intermittent, Less than 6 Hours Per Day (ICD-10-PCS; 2019-03-16)
DX: I13.2 Hypertensive heart and chronic kidney disease with heart failure and with stage 5 chronic kidney disease, or end stage renal disease (principal); I50.43 Acute on chronic combined systolic (congestive) and diastolic (congestive) heart failure; N18.6 End stage renal disease; F11.20 Opioid dependence, uncomplicated; N04.8 Nephrotic syndrome with other morphologic changes; R18.8 Other ascites; E87.5 Hyperkalemia; K31.84 Gastroparesis; Z53.29 Procedure and treatment not carried out because of patient's decision for other reasons; K74.60 Unspecified cirrhosis of liver; L30.8 Other specified dermatitis; D63.8 Anemia in other chronic diseases classified elsewhere; E10.22 Type 1 diabetes mellitus with diabetic chronic kidney disease; G89.4 Chronic pain syndrome; H54.8 Legal blindness, as defined in USA; E10.43 Type 1 diabetes mellitus with diabetic autonomic (poly)neuropathy; R16.2 Hepatomegaly with splenomegaly, not elsewhere classified; Z91.15 Patient's noncompliance with renal dialysis; Z91.14 Patient's other noncompliance with medication regimen; Z99.2 Dependence on renal dialysis; Z88.8 Allergy status to other drugs, medicaments and biological substances; Z91.040 Latex allergy status
CPT/HCPCS: 36415; 71045; 74021; 80048; 80053; 82962; 83605; 83690-TC; 84100-TC; 84132-TC; 85025; 85610-TC; 87040-TC; 87081; 90935; 90937; 93005; 96374; 96375; 99285; G0378; J1170; J1200; J1815; J2270; J7030

== ENCOUNTER 2019-03-20 08:34 | Emergency (ER) | payer OTHER ==
[~2019-03-20] VITALS: Ht 170.2 cm; Wt 87.5 kg
[~2019-03-20 08:34] MED LIST changes: -AMOX-423 PO
[2019-03-20 08:39] VITALS: BP_SYST 163
[2019-03-20 10:28] LABS: BASOPHILS # (AUTO) 0.1 K/uL (0.0-0.2); BASOPHILS % (AUTO) 1.2 % (0.0-2.0); EOSINOPHILS # (AUTO) 0.2 K/uL (0.0-0.4); EOSINOPHILS % (AUTO) 3.1 % (0.0-4.0); HEMATOCRIT 33.8 % (36-48); HEMOGLOBIN 11.2 g/dL (12.0-16.0); LYMPHOCYTES # (AUTO) 1.2 K/uL (1.0-5.5); MEAN CORPUSCULAR HEMOGLOBIN 33 pg (27-31); MEAN CORPUSCULAR HGB CONC 33 % (32-36); MEAN CORPUSCULAR VOLUME 100 fL (79.0-98.0); MONOCYTES # (AUTO) 0.4 K/uL (0.0-1.0); MONOCYTES % (AUTO) 7.2 % (1.7-9.3); NEUTROPHILS # (AUTO) 3.6 K/uL (1.8-7.7); NEUTROPHILS % (AUTO) 66.5 % (40.0-70.0); RED BLOOD CELL COUNT(AUTO) 3.39 MIL/uL (4.2-6.2); RED CELL DISTRIBUTION WIDTH 15.8 % (9.0-15.0); WHITE BLOOD COUNT (AUTO) 5.4 K/uL (4.8-10.8)
[2019-03-20 10:37] LABS: CREATININE 6.84 mg/dL (0.55-1.30)
[2019-03-20] MEDS ORDERED: KETAMINE 30 MG/3 ML SYRINGE 30 MG in NS 100 ML IV ONE (10:45)
[2019-03-20] MEDS ORDERED: MORPHINE 2 MG/ML INJ. SYRINGE IVP ONE (10:45)
[2019-03-20 10:48] LABS: ALBUMIN 3.7 g/dL (3.4-4.8); POTASSIUM 5.9 mmol/L (3.5-5.1); TOTAL BILIRUBIN 0.8 mg/dL (0.0-1.0)
[2019-03-20] MEDS ORDERED: KETAMINE 30 MG/3 ML SYRINGE ONE (10:58)
[2019-03-20 11:03] LABS: PLATELET COUNT (AUTO) 78 K/uL (130-430)
[2019-03-20] MEDS ORDERED: METO-290 PO (11:32)
[2019-03-20] MEDS ORDERED: traMADol HCL HCL 50 MG TABLET (ULTRAM) PO ONE (11:45)
[2019-03-20 12:10] VITALS: BP_SYST 129
== END 2019-03-20 16:37 | disposition home or self-care (01) ==
LOC: SED 08:34
DX: G89.29 Other chronic pain (principal); R10.9 Unspecified abdominal pain; I13.2 Hypertensive heart and chronic kidney disease with heart failure and with stage 5 chronic kidney disease, or end stage renal disease; E10.22 Type 1 diabetes mellitus with diabetic chronic kidney disease; N18.6 End stage renal disease; I50.9 Heart failure, unspecified; Z99.2 Dependence on renal dialysis; Z79.4 Long term (current) use of insulin; Z91.040 Latex allergy status; Z88.8 Allergy status to other drugs, medicaments and biological substances; Z79.899 Other long term (current) drug therapy
CPT/HCPCS: 36415; 71045; 74018; 80053; 82550-TC; 83690-TC; 83880; 84484; 85025; 93005; 96365; 96375; 99284; J2270

== ENCOUNTER 2019-03-21 08:00 | Inpatient (IN) | payer OTHER ==
[~2019-03-21] VITALS: Ht 162.6 cm; Wt 76.2 kg
[2019-03-21] VITALS (13 sets, daily range): BP systolic 119–167
[~2019-03-21 08:00] MED LIST changes: +METO-290 PO
[2019-03-21] MEDS ORDERED: ONDANSETRON HCL 4 MG/2 ML VIAL IVP ONE ×3 (08:30→10:15)
[2019-03-21] MEDS ORDERED: MORPHINE 4 MG/ML INJ. SYRINGE IVP ONE ×2 (08:30→10:15)
[2019-03-21] MEDS ORDERED: SODIUM POLYSTYRENE SULFONATE 15 GM/60 ML UDBTL NG ONE (08:30)
[2019-03-21] MEDS ORDERED: MORPHINE 4 MG/ML INJ. SYRINGE IM ONE (09:00)
[2019-03-21 09:07] LABS: BASOPHILS % (AUTO) 0.6 % (0.0-2.0); EOSINOPHILS # (AUTO) 0.1 K/uL (0.0-0.4); EOSINOPHILS % (AUTO) 1.9 % (0.0-4.0); HEMATOCRIT 35.7 % (36-48); HEMOGLOBIN 11.8 g/dL (12.0-16.0); LYMPHOCYTES # (AUTO) 1.4 K/uL (1.0-5.5); LYMPHOCYTES % (AUTO) 21.2 % (20.5-51.5); MEAN CORPUSCULAR HEMOGLOBIN 33 pg (27-31); MEAN CORPUSCULAR HGB CONC 33 % (32-36); MEAN CORPUSCULAR VOLUME 101 fL (79.0-98.0); MONOCYTES # (AUTO) 0.6 K/uL (0.0-1.0); MONOCYTES % (AUTO) 9.3 % (1.7-9.3); NEUTROPHILS # (AUTO) 4.3 K/uL (1.8-7.7); PLATELET COUNT (AUTO) 71 K/uL (130-430); RED BLOOD CELL COUNT(AUTO) 3.54 MIL/uL (4.2-6.2); RED CELL DISTRIBUTION WIDTH 15.4 % (9.0-15.0); WHITE BLOOD COUNT (AUTO) 6.5 K/uL (4.8-10.8)
[2019-03-21 09:23] LABS: CALCIUM 8.6 mg/dL (8.4-11.0)
[2019-03-21 09:26] LABS: ALBUMIN 3.5 g/dL (3.4-4.8); TOTAL BILIRUBIN 0.8 mg/dL (0.0-1.0)
[2019-03-21 09:35] LABS: CREATININE 8.15 mg/dL (0.55-1.30)
[2019-03-21] MEDS ORDERED: KETAMINE 30 MG/3 ML SYRINGE IVP ONE (09:45)
[2019-03-21] MEDS ORDERED: hydrALAZINE HCL 20 MG/ML VIAL IVP ONE (10:15)
[2019-03-21] MEDS ORDERED: KETOROLAC TROMETHAMINE 30 MG VIAL IVP ONE (10:15)
[2019-03-21] MEDS ORDERED: BENZOCAINE 20% 0.5mL UD SPRAY MM ONE (10:30)
[2019-03-21 10:50] LABS: PHOSPHORUS 7.8 mg/dL (2.7-4.5)
[2019-03-21] MEDS ORDERED: DIPHENHYDRAMINE INJ 50 MG/ML VIAL ONE (11:59)
[2019-03-21] MEDS ORDERED: DIPHENHYDRAMINE INJ 50 MG/ML VIAL IVP ONE (12:00)
[2019-03-21] MEDS ORDERED: MORPHINE 4 MG/ML INJ. SYRINGE IVP PRN (15:15)
[2019-03-21] MEDS: DIPHENHYDRAMINE INJ 50 MG/ML VIAL IVP PRN ×2 (15:46→23:34)
[2019-03-21] MEDS ORDERED: hydrALAZINE HCL 20 MG/ML VIAL IVP PRN (18:15)
[2019-03-21] MEDS: HYDROmorphone 2 MG/ML VIAL IVP PRN ×2 (20:04→23:33)
[2019-03-22] VITALS (15 sets, daily range): BP systolic 130–187
[2019-03-22] MEDS: HYDROmorphone 2 MG/ML VIAL IVP PRN ×4 (03:19→15:30)
[2019-03-22] MEDS: DIPHENHYDRAMINE INJ 50 MG/ML VIAL IVP PRN (09:02)
[2019-03-22] MEDS ORDERED: ONDANSETRON 4 MG ODT TAB PO PRN (09:15)
[2019-03-22] MEDS ORDERED: DIPHENHYDRAMINE INJ 50 MG/ML VIAL IVP ONE (09:15)
[2019-03-22 09:58] LABS: ALBUMIN 3.8 g/dL (3.4-4.8); CALCIUM 8.8 mg/dL (8.4-11.0); CREATININE 6.66 mg/dL (0.55-1.30); POTASSIUM 4.5 mmol/L (3.5-5.1); TOTAL BILIRUBIN 0.9 mg/dL (0.0-1.0)
[2019-03-22 10:07] LABS: HEMATOCRIT 36.7 % (36-48); MEAN CORPUSCULAR HEMOGLOBIN 33 pg (27-31); MEAN CORPUSCULAR HGB CONC 33 % (32-36); MEAN CORPUSCULAR VOLUME 100 fL (79.0-98.0); RED BLOOD CELL COUNT(AUTO) 3.66 MIL/uL (4.2-6.2); RED CELL DISTRIBUTION WIDTH 15.4 % (9.0-15.0); WHITE BLOOD COUNT (AUTO) 5.5 K/uL (4.8-10.8)
[2019-03-22 10:09] LABS: BASOPHILS % (AUTO) 0.4 % (0.0-2.0); EOSINOPHILS % (AUTO) 2.7 % (0.0-4.0); LYMPHOCYTES % (AUTO) 15.4 % (20.5-51.5); MONOCYTES % (AUTO) 3.6 % (1.7-9.3); NEUTROPHILS % (AUTO) 77.9 % (40.0-70.0); PLATELET COUNT (AUTO) 79 K/uL (130-430)
[2019-03-22] MEDS: INSULIN REGULAR, HUMAN 100 UNITS/ML, 10 ML VIAL (humuLIN R) SUBCUT PRN ×2 (11:56→20:31)
[2019-03-23] MEDS: HYDROmorphone 2 MG/ML VIAL IVP PRN ×3 (00:22→08:38)
[2019-03-23 00:41] VITALS: BP_SYST 143
[2019-03-23 05:34] VITALS: BP_SYST 146
[2019-03-23] MEDS: INSULIN REGULAR, HUMAN 100 UNITS/ML, 10 ML VIAL (humuLIN R) SUBCUT PRN (06:16)
[2019-03-23 07:18] LABS: BASOPHILS % (AUTO) 0.3 % (0.0-2.0); EOSINOPHILS % (AUTO) 0.8 % (0.0-4.0); HEMATOCRIT 32.9 % (36-48); HEMOGLOBIN 10.9 g/dL (12.0-16.0); LYMPHOCYTES # (AUTO) 1.1 K/uL (1.0-5.5); LYMPHOCYTES % (AUTO) 24.1 % (20.5-51.5); MEAN CORPUSCULAR HEMOGLOBIN 33 pg (27-31); MEAN CORPUSCULAR HGB CONC 33 % (32-36); MEAN CORPUSCULAR VOLUME 100 fL (79.0-98.0); MONOCYTES # (AUTO) 0.6 K/uL (0.0-1.0); MONOCYTES % (AUTO) 12.3 % (1.7-9.3); NEUTROPHILS # (AUTO) 2.8 K/uL (1.8-7.7); NEUTROPHILS % (AUTO) 62.5 % (40.0-70.0); RED BLOOD CELL COUNT(AUTO) 3.29 MIL/uL (4.2-6.2); RED CELL DISTRIBUTION WIDTH 15.6 % (9.0-15.0); WHITE BLOOD COUNT (AUTO) 4.5 K/uL (4.8-10.8)
[2019-03-23 07:49] LABS: PLATELET COUNT (AUTO) 68 K/uL (130-430)
[2019-03-23 08:00] VITALS: BP_SYST 158
[2019-03-23 08:01] LABS: CALCIUM 8.5 mg/dL (8.4-11.0); CREATININE 5.31 mg/dL (0.55-1.30); POTASSIUM 4.5 mmol/L (3.5-5.1)
[2019-03-23] MEDS: DIPHENHYDRAMINE INJ 50 MG/ML VIAL IVP PRN (08:46)
== END 2019-03-23 10:00 | disposition home or self-care (01) | DRG 682 ==
LOC: SED 08:00 → SIC 10:07 → STU 03-22 17:44
PROVIDERS: ADMIT Internal Medicine; ATTEND Internal Medicine
PROC: 5A1D70Z Performance of Urinary Filtration, Intermittent, Less than 6 Hours Per Day (ICD-10-PCS; principal; 2019-03-21)
PROC: 5A1D70Z Performance of Urinary Filtration, Intermittent, Less than 6 Hours Per Day (ICD-10-PCS; 2019-03-22)
DX: I12.0 Hypertensive chronic kidney disease with stage 5 chronic kidney disease or end stage renal disease (principal); N18.6 End stage renal disease; I42.9 Cardiomyopathy, unspecified; E87.5 Hyperkalemia; E10.43 Type 1 diabetes mellitus with diabetic autonomic (poly)neuropathy; G89.4 Chronic pain syndrome; D69.6 Thrombocytopenia, unspecified; D64.9 Anemia, unspecified; E10.65 Type 1 diabetes mellitus with hyperglycemia; E87.70 Fluid overload, unspecified; E10.22 Type 1 diabetes mellitus with diabetic chronic kidney disease; K31.84 Gastroparesis; Z88.8 Allergy status to other drugs, medicaments and biological substances; Z91.040 Latex allergy status; Z79.01 Long term (current) use of anticoagulants; Z79.4 Long term (current) use of insulin; Z79.899 Other long term (current) drug therapy; Z99.2 Dependence on renal dialysis; Z79.2 Long term (current) use of antibiotics; Z91.15 Patient's noncompliance with renal dialysis
CPT/HCPCS: 36415; 71045; 74018; 80048; 80053; 82550-TC; 82962; 83690-TC; 83735-TC; 83880; 84100-TC; 84484; 85025; 87081; 90935; 90937; 93005; 96365; 96372; 96374; 96375; 99285; G0378; J0360; J1170; J1200; J1815; J1885; J2270; J2405; J7030; Q0162

== ENCOUNTER 2019-04-14 14:20 | Emergency (ER) | payer OTHER ==
[~2019-04-14] VITALS: Ht 170.2 cm; Wt 76.7 kg
[2019-04-14 14:32] VITALS: BP_SYST 140
[2019-04-14 15:54] LABS: BASOPHILS % (AUTO) 0.7 % (0.0-2.0); EOSINOPHILS # (AUTO) 0.1 K/uL (0.0-0.4); EOSINOPHILS % (AUTO) 2.2 % (0.0-4.0); HEMATOCRIT 32.7 % (36-48); HEMOGLOBIN 10.9 g/dL (12.0-16.0); LYMPHOCYTES # (AUTO) 1.2 K/uL (1.0-5.5); LYMPHOCYTES % (AUTO) 22.2 % (20.5-51.5); MEAN CORPUSCULAR HEMOGLOBIN 33 pg (27-31); MEAN CORPUSCULAR HGB CONC 33 % (32-36); MEAN CORPUSCULAR VOLUME 99 fL (79.0-98.0); MONOCYTES # (AUTO) 0.4 K/uL (0.0-1.0); MONOCYTES % (AUTO) 7.8 % (1.7-9.3); NEUTROPHILS # (AUTO) 3.6 K/uL (1.8-7.7); NEUTROPHILS % (AUTO) 67.1 % (40.0-70.0); PLATELET COUNT (AUTO) 121 K/uL (130-430); RED CELL DISTRIBUTION WIDTH 16.8 % (9.0-15.0); WHITE BLOOD COUNT (AUTO) 5.4 K/uL (4.8-10.8)
[2019-04-14 16:04] LABS: CALCIUM 8.5 mg/dL (8.4-11.0)
[2019-04-14 16:09] LABS: ALBUMIN 3.5 g/dL (3.4-4.8); TOTAL BILIRUBIN 0.8 mg/dL (0.0-1.0)
[2019-04-14 16:10] LABS: POTASSIUM 6.3 mmol/L (3.5-5.1)
[2019-04-14 16:11] LABS: CREATININE 7.57 mg/dL (0.55-1.30)
[2019-04-14] MEDS ORDERED: DEXTROSE 50% JECT 50 ML DISP.SYRIN IVP ONE (16:30)
[2019-04-14] MEDS ORDERED: INSULIN REGULAR, HUMAN 10 UNITS/0.1 ML INJ IVP ONE (16:30)
[2019-04-14] MEDS ORDERED: SODIUM POLYSTYRENE SULFONATE 15 GM/60 ML UDBTL PO ONE (16:30)
[2019-04-14] MEDS ORDERED: ONDANSETRON HCL 4 MG/2 ML VIAL IVP ONE (17:15)
[2019-04-14] MEDS ORDERED: FAMOTIDINE PF 20 MG/2 ML VIAL IVP ONE (17:15)
[2019-04-14 18:45] VITALS: BP_SYST 140
== END 2019-04-14 18:45 | disposition home or self-care (01) ==
LOC: SED 14:20
DX: K52.9 Noninfective gastroenteritis and colitis, unspecified (principal); F11.99 Opioid use, unspecified with unspecified opioid-induced disorder; E11.9 Type 2 diabetes mellitus without complications; I11.0 Hypertensive heart disease with heart failure; I50.9 Heart failure, unspecified; Z90.49 Acquired absence of other specified parts of digestive tract; Z91.040 Latex allergy status; Z88.8 Allergy status to other drugs, medicaments and biological substances; Z79.4 Long term (current) use of insulin; Z79.899 Other long term (current) drug therapy
CPT/HCPCS: 36415; 80053; 83690; 84132; 85025; 96374; 96375; 99283; J1815

== ENCOUNTER 2019-04-16 07:46 | Emergency (ER) | payer OTHER ==
[~2019-04-16] VITALS: Ht 170.2 cm; Wt 52.6 kg
[2019-04-16 07:46] VITALS: BP_SYST 170
--- NOTE | 2019-04-16 07:47 | NUR ---
Placed in room 04 . Placed on case monitor, blood pressure machine and pulse oximeter. To gown for exam. Side rails up.
--- NOTE | 2019-04-16 08:07 | NUR ---
PATIENT PRESENTS TO THE ER WITH TWO DAY HX OF ABDOMINAL PAIN AND WAS SEEN IN ER ON 04/14/19 FOR SAME; ASSESSED AND RELEASED; PATIENT STATES NEXT DIALYSIS IS 04/17/19; NO TRAUMA, NO OTHER REMARKABLE S/S; PATIENT TO ER #4 AT 0755 AND ERMD EVALUATION 0800; STAT EKG IN PROCESS
[2019-04-16 08:51] LABS: POTASSIUM 4.4 mmol/L (3.5-5.1)
[2019-04-16 08:56] LABS: CREATININE 9.44 mg/dL (0.55-1.30)
[2019-04-16] MEDS: PROCHLORPERAZINE EDISYLATE 10 MG/2 ML VIAL IM ONE (09:17)
[2019-04-16] MEDS: fentaNYL CITRATE/PF 100 MCG/2 ML AMP IM ONE (09:19)
[2019-04-16 09:54] VITALS: BP_SYST 161
--- NOTE | 2019-04-16 09:56 | NUR ---
REASSESSMENT BY ERMD; PATIENT STATES MARGINAL IMPROVEMENT; PATIENT DISCHARGED WITH ; AMBULATORY; IMPROVED
== END 2019-04-16 09:45 | disposition home or self-care (01) ==
LOC: SED 07:46
DX: G89.29 Other chronic pain (principal); M54.5 Low back pain; I13.2 Hypertensive heart and chronic kidney disease with heart failure and with stage 5 chronic kidney disease, or end stage renal disease; E10.22 Type 1 diabetes mellitus with diabetic chronic kidney disease; N18.6 End stage renal disease; I50.9 Heart failure, unspecified; D64.9 Anemia, unspecified; Z99.2 Dependence on renal dialysis; Z79.899 Other long term (current) drug therapy; Z79.4 Long term (current) use of insulin; Z91.040 Latex allergy status; Z88.8 Allergy status to other drugs, medicaments and biological substances; Z87.01 Personal history of pneumonia (recurrent)
CPT/HCPCS: 36415; 80048; 96372; 99283; J0780; J3010

== ENCOUNTER 2019-04-26 18:35 | Inpatient (IN) | payer OTHER ==
[~2019-04-26] VITALS: Ht 170.2 cm; Wt 71.2 kg
[2019-04-26 18:35] VITALS: BP_SYST 166
--- NOTE | 2019-04-26 19:45 | NUR ---
Placed in room 01 . Placed on manager monitoring, blood pressure machine and pulse oximeter. To gown for exam. Side rails up.
--- NOTE | 2019-04-26 20:00 | NUR ---
Patient AAO x 4 is brought via wheelchair to ER bed 01 with complaints of bilateral lower extremity edema and 9/10 pain. Reports skipping dialysis on Tuesday and and states she has been coughing x 3 weeks. Lung sounds clear on auscultation. Even chest rise and fall with respirations. Will continue to monitor.
--- NOTE | 2019-04-26 20:10 | NUR ---
ER Dr. Howard at bedside examining patient.
[2019-04-26] MEDS ORDERED: hydrALAZINE HCL 20 MG/ML VIAL IVP ONE (20:30)
[2019-04-26] MEDS ORDERED: PANTOPRAZOLE SODIUM 40 MG/VIAL (PROTONIX) IVP ONE (20:30)
--- NOTE | 2019-04-26 20:55 | NUR ---
Ultrasound at bedside
[2019-04-26] MEDS ORDERED: fentaNYL CITRATE/PF 100 MCG/2 ML AMP IVP ONE ×2 (21:00→23:45)
[2019-04-26] MEDS ORDERED: DIPHENHYDRAMINE INJ 50 MG/ML VIAL IVP ONE (21:00)
--- NOTE | 2019-04-26 21:00 | NUR ---
Patient is screaming in pain, stating the the surgical scrub technologist put too much pressure on her leg when scanning. ER MD Dr. Howard made aware. Pain medication will be ordered,
[2019-04-26 21:12] LABS: BASOPHILS % (AUTO) 0.6 % (0.0-2.0); EOSINOPHILS # (AUTO) 0.1 K/uL (0.0-0.4); EOSINOPHILS % (AUTO) 1.7 % (0.0-4.0); HEMATOCRIT 35.6 % (36-48); HEMOGLOBIN 11.6 g/dL (12.0-16.0); LYMPHOCYTES # (AUTO) 1.4 K/uL (1.0-5.5); LYMPHOCYTES % (AUTO) 20.5 % (20.5-51.5); MEAN CORPUSCULAR HEMOGLOBIN 33 pg (27-31); MEAN CORPUSCULAR HGB CONC 33 % (32-36); MEAN CORPUSCULAR VOLUME 100 fL (79.0-98.0); MONOCYTES # (AUTO) 0.6 K/uL (0.0-1.0); MONOCYTES % (AUTO) 9.2 % (1.7-9.3); NEUTROPHILS # (AUTO) 4.5 K/uL (1.8-7.7); PLATELET COUNT (AUTO) 134 K/uL (130-430); RED BLOOD CELL COUNT(AUTO) 3.54 MIL/uL (4.2-6.2); RED CELL DISTRIBUTION WIDTH 16.9 % (9.0-15.0); WHITE BLOOD COUNT (AUTO) 6.7 K/uL (4.8-10.8)
[2019-04-26 21:21] LABS: POTASSIUM 5.2 mmol/L (3.5-5.1)
--- NOTE | 2019-04-26 21:24 | NUR ---
electrophysiology technologist at bedside to reattempt exam.
[2019-04-26 21:30] LABS: ALBUMIN 3.7 g/dL (3.4-4.8)
[2019-04-26 21:44] LABS: INR 1.3 (0.8-1.2); PROTHROMBIN TIME 12.9 SECS (9.5-12.5)
[2019-04-26 21:56] LABS: CREATININE 8.34 mg/dL (0.55-1.30)
--- NOTE | 2019-04-26 23:18 | NUR ---
Patient will be admitted to care of Dr. Funez. Admitted to Telemetry unit. Room assignment to be given by [facility]. Complete and up to date summary report printed. SBAR report to be given at bedside with opportunity for questions.
--- NOTE | 2019-04-26 23:28 | NUR ---
Medication reconciliation completed with information provided by verbal confirmtaion from pt. Any prior medication reconciliation on file was reviewed and corrected.
--- NOTE | 2019-04-26 23:52 | NUR ---
ADMISSION NOTE Received patient from ER via bobbyrosito, received report from SN DAGOBERTO and AMANDA HUGGINS. Patient admitted with diagnosis of MISSED DIALYSIS, CELLULITIS OF RIGHT LOWER EXTREMITY. Patient oriented to hospital routine, call light, toileting and safety-patient verbalized understanding.
[2019-04-27] VITALS: BP_SYST 157
[2019-04-27 00:29] VITALS: BP_SYST 151
--- NOTE | 2019-04-27 02:31 | NUR ---
ROUNDS Pt is resting in bed with both eyes closed, with visible chest rise and fall with non-labored breathing noted. No complains of pain and no signs of acute distress noted. Safety precautions in place with 3 side rails up, wheels locked, bed alarm on and in lowest level. Call light with pt. Will continue to monitor.
--- NOTE | 2019-04-27 04:23 | NUR ---
ROUNDS Pt is resting in bed with both eyes closed, with visible chest rise and fall with non-labored breathing noted. Pt is easily arousable. No signs of acute distress or SOB noted. No needs at this time. Safety precautions in place and call light with pt. Will continue to monitor.
--- NOTE | 2019-04-27 06:26 | NUR ---
ATTENDING MD RETORT UNLOADER, DR JACKELINE GUERRERO WAS CALLED, RE: PAIN MEDICATION. SPOKE TO LINA.
--- NOTE | 2019-04-27 06:53 | NUR ---
CLOSING NOTES Pt is resting in bed with both eyes closed, with visible chest rise and fall with non-labored breathing noted. No signs of acute distress or SOB noted. All needs attended throughout the shift. Safety precautions maintained with 3 side rails up, wheels locked, bed alarm on and in lowest level. Call light with pt. Still waiting for MD to call back. Will endorse to day shift nurse.
--- NOTE | 2019-04-27 08:14 | NUR ---
am rounds: Awake oriented x4. Was seen calm sitting on the bed but as soon s patient saw nurse walked in, she started crying and complaining of pain on the right leg. Informed patient, will be paged for pain meds. Safety precautions in place, Call light within reach.
[2019-04-27 08:18] VITALS: BP_SYST 171
--- NOTE | 2019-04-27 08:45 | NUR ---
Elliot OH: Elliot Funez for pain medication.
--- NOTE | 2019-04-27 09:36 | NUR ---
Paged : Paged Dr. Rangel for pain medication order and to report high BP. Awaiting for call back.
--- NOTE | 2019-04-27 10:03 | NUR ---
Nutrition Update Davey Scale 18 noted. Pt admitted for missed dialysis, cellulitis of right lower extremity Diet: renal standard BMI: 28.7 kg/m2 RD to follow per nutrition care standards.
--- NOTE | 2019-04-27 10:13 | NUR ---
ATTENDING MD PLANT AND MAINTENANCE TECHNICIAN DR JACKELINE GUERRERO / DR CONNORS WAS CALLED AGAIN, RE: PAIN MEDICATION. SPOKE TO
--- NOTE | 2019-04-27 10:55 | NUR ---
paged: Spoke with Jessica, she called Dr. Rangel to call nurse, patient wants pain medicine.
[2019-04-27] MEDS: ONDANSETRON HCL 4 MG/2 ML VIAL IVP PRN ×3 (11:27→20:27)
[2019-04-27] MEDS: MORPHINE 2 MG/ML INJ. SYRINGE IVP PRN ×2 (11:28→16:15)
[2019-04-27] MEDS: DIPHENHYDRAMINE INJ 50 MG/ML VIAL IVP PRN ×3 (11:29→20:27)
[2019-04-27] MEDS: INSULIN REGULAR, HUMAN 100 UNITS/ML, 10 ML VIAL (humuLIN R) SUBCUT PRN ×2 (11:38→16:25)
--- NOTE | 2019-04-27 12:31 | NUR ---
Corporate Risk Analyst: Met with pt. to conduct a DCPA. [employer] introduced self to pt. who began by talking in an upset and frustrated manner. She stated it took Dr. Funez a long time to admit her and now a long time to get her medication. Pt. was in tears. HUMAN RESOURCE INTERNS[employer]IP tried to diffuse the situation and spoke calm and quietly towards her. Pt. stated she wants to see the Dr. Her left leg was exposed and swollen. Pt. stated Pt. was upset stating she is in a lot of pain and cannot walk. This is why she missed 2 of her Dialysis apt. She has dialysis on ,,,. with [facility] ([facility]). Pt. stated her goal is to get a transplant. Pt. still takes Xanax prior to her Dialysis as it helps her with her anxiety. Pt. denied needing any mental health services and also denied feeling suicidal. PT. still lives at home with her , 7 year old daughter and her aunt. H[employer] will remain available as needed.
[2019-04-27] MEDS: HYDROcodone/ACETAMIN 10-325 MG TAB PO PRN (13:07)
[2019-04-27] MEDS: ALPRAZolam 0.25 MG TABLET PO PRN (13:09)
[2019-04-27] MEDS: hydrALAZINE HCL 25 MG TABLET PO SCH ×2 (14:00→22:58)
[2019-04-27] MEDS: METOCLOPRAMIDE HCL 10 MG TABLET PO SCH ×2 (14:00→22:00)
--- NOTE | 2019-04-27 14:00 | NUR ---
HD: Hemodialysis started.
[2019-04-27 15:23] VITALS: BP_SYST 145
[2019-04-27] MEDS ORDERED: VANCOMYCIN HCL 1 GM/NS PREMIX 250 ML IV ONE (17:30)
--- NOTE | 2019-04-27 17:33 | NUR ---
DIALYSIS COMPLETED: COMPLETED WITH 4 LI OUT.
--- NOTE | 2019-04-27 17:50 | NUR ---
CONSULTATION: REASON FOR CONSULT: CELLULITIS CONSULTING PHYSICIAN: PATRICE DUTTON ORDERED BY: MOSES CONNORS SPOKE WITH TORY [phone]
--- NOTE | 2019-04-27 17:58 | NUR ---
CONSULTATION; REASON FOR CONSULT: PAIN GEM TECHNICIAN PHYSICIAN: MANJEET REBOLLAR ORDERED BY: MOSES CONNORS SPOKE WITH BRICE [phone]
[2019-04-27] MEDS ORDERED: PIPERACILLIN/TAZO 2.25G/DEX-IS 50 ML IV ONE (18:00)
--- NOTE | 2019-04-27 18:23 | NUR ---
End of shift: Needs attended, no change in assessment.
--- NOTE | 2019-04-27 19:15 | NUR ---
OPENING NOTES Late entry due to patient care. Bedside report received from dayshift nurse. Patient received lying in bed, sleeping, no s/s of acute distress noted. Breathing even and unlabored. HOB raised. Call light with patient. Will continue to monitor.
[2019-04-27 20:00] VITALS: BP_SYST 143
[2019-04-27] MEDS: MORPHINE 4 MG/ML INJ. SYRINGE IVP PRN (20:28)
[2019-04-27] MEDS: DOCUSATE SODIUM 100 MG CAPSULE PO SCH (20:28)
--- NOTE | 2019-04-27 20:28 | NUR ---
PAIN/MEDPASS Patient complained of pain, PRN medication administered. Scheduled medications given at this time, patient tolerated well. Skin warm and dry to touch, accucheck at 131, no insulin needed per sliding scale. Call light with patient. Will continue to monitor.
[2019-04-27] MEDS: INSULIN GLARGINE 100 UNITS/ML 10 ML VIAL SQ SCH (20:37)
--- NOTE | 2019-04-27 22:30 | NUR ---
ROUNDS Patient in bed asleep at this time. No signs of discomfort noted. Chest rise and fall even bilaterally. Call light with patient. Will continue to monitor.
[2019-04-28] VITALS: BP_SYST 138
[2019-04-28] MEDS: DIPHENHYDRAMINE INJ 50 MG/ML VIAL IVP PRN ×6 (00:30→20:53)
[2019-04-28] MEDS: ONDANSETRON HCL 4 MG/2 ML VIAL IVP PRN ×2 (00:30→04:35)
--- NOTE | 2019-04-28 00:30 | NUR ---
PAIN Patient complained of pain at this time. PRN medication administered. Call light with patient. Will continue to monitor and reassess.
[2019-04-28] MEDS: MORPHINE 4 MG/ML INJ. SYRINGE IVP PRN ×5 (00:31→16:37)
--- NOTE | 2019-04-28 02:30 | NUR ---
ROUNDS Patient asleep. No s/s of acute distress noted. Breathing even and unlabored. Call light with patient. Will continue to monitor.
--- NOTE | 2019-04-28 04:30 | NUR ---
PAIN Patient complained of pain, PRN medications administered. Call light with patient. Will continue to monitor.
[2019-04-28] MEDS: hydrALAZINE HCL 25 MG TABLET PO SCH ×3 (06:00→20:54)
[2019-04-28] MEDS: METOCLOPRAMIDE HCL 10 MG TABLET PO SCH ×3 (06:00→20:53)
[2019-04-28] MEDS: PIPERACILLIN/TAZO 2.25G/DEX-IS 50 ML IV SCH ×3 (06:04→21:09)
--- NOTE | 2019-04-28 06:22 | NUR ---
CLOSING NOTES Patient in bed, awake at this time, patient requested for some ice water, provided by RN. No s/s of acute distress noted. Breathing even and unlabored. IV site is patent, no signs of infiltration or infection noted. Skin warm and dry to touch, no s/s of hypoglycemia. All needs met throughout shift. Fall and safety precautions maintained throughout shift. Will continue to monitor until patient care is endorsed to oncoming dayshift nurse.
--- NOTE | 2019-04-28 07:42 | NUR ---
Opening Note received bedside SBAR report from team assistant RN, patient resting in bed, respirations even and unlabored on room air, no bleeding noted at right arm dialysis site, patient reports pain is controlled at this time, educated patient on use of call light and asked to call for assistance, patient verbalized understanding, call light in reach, educated patient on use of bed alarm for patient safety, patient refusing bed alarm, bed in low and locked position.
[2019-04-28 08:00] VITALS: BP_SYST 142
[2019-04-28 08:12] LABS: BASOPHILS % (AUTO) 0.4 % (0.0-2.0); EOSINOPHILS # (AUTO) 0.1 K/uL (0.0-0.4); EOSINOPHILS % (AUTO) 2.2 % (0.0-4.0); HEMATOCRIT 31.9 % (36-48); HEMOGLOBIN 10.4 g/dL (12.0-16.0); LYMPHOCYTES # (AUTO) 1.3 K/uL (1.0-5.5); LYMPHOCYTES % (AUTO) 21.1 % (20.5-51.5); MEAN CORPUSCULAR HEMOGLOBIN 32 pg (27-31); MEAN CORPUSCULAR HGB CONC 33 % (32-36); MEAN CORPUSCULAR VOLUME 100 fL (79.0-98.0); MONOCYTES # (AUTO) 0.5 K/uL (0.0-1.0); MONOCYTES % (AUTO) 7.8 % (1.7-9.3); NEUTROPHILS # (AUTO) 4.1 K/uL (1.8-7.7); NEUTROPHILS % (AUTO) 68.5 % (40.0-70.0); PLATELET COUNT (AUTO) 124 K/uL (130-430); RED CELL DISTRIBUTION WIDTH 17.3 % (9.0-15.0); WHITE BLOOD COUNT (AUTO) 5.9 K/uL (4.8-10.8)
[2019-04-28 08:31] LABS: ALBUMIN 2.8 g/dL (3.4-4.8); CALCIUM 8.8 mg/dL (8.4-11.0); CREATININE 6.42 mg/dL (0.55-1.30); PHOSPHORUS 4.8 mg/dL (2.7-4.5); POTASSIUM 4.1 mmol/L (3.5-5.1); TOTAL BILIRUBIN 0.9 mg/dL (0.0-1.0)
[2019-04-28] MEDS: DOCUSATE SODIUM 100 MG CAPSULE PO SCH ×2 (08:35→20:53)
--- NOTE | 2019-04-28 09:53 | NUR ---
RN Rounds patient resting in bed, respirations even and unlabored on room air, patient reports pain and itching are controlled at this time, no acute distress noted.
[2019-04-28 11:08] VITALS: BP_SYST 120
[2019-04-28] MEDS: INSULIN REGULAR, HUMAN 100 UNITS/ML, 10 ML VIAL (humuLIN R) SUBCUT PRN ×2 (11:20→17:06)
--- NOTE | 2019-04-28 11:20 | NUR ---
Blood Glucose blood glucose 158, educated patient on use and side effects of insulin per sliding scale, patient verbalized understanding, patient refusing insulin per sliding scale, patient resting in bed.
--- NOTE | 2019-04-28 13:50 | NUR ---
Hemodialysis hemodialysis started by director of instrumental music, no acute distress noted, respirations even and unlabored on room air, patient reports pain is controlled at this time, director of instrumental music at bedside.
[2019-04-28] MEDS: HYDROcodone/ACETAMIN 10-325 MG TAB PO PRN ×2 (15:09→23:23)
--- NOTE | 2019-04-28 15:28 | NUR ---
Dietitian Recommendations * Recommend continuing renal diet * Diabetic therapeutic dietary restrictions are not warranted at this time KRISTEN, RD Please refer to Nutrition Assessment for details. Addendum: 04/28/19 at [address] Amended: Links added.
--- NOTE | 2019-04-28 15:45 | NUR ---
RN Rounds patient resting in bed, patient reports pain is controlled at this time, jig builder helper at bedside.
[2019-04-28 15:56] VITALS: BP_SYST 120
--- NOTE | 2019-04-28 16:17 | NUR ---
Hemodialysis hemodialysis completed by department store manager, 4L out, dressing on right forearm dialysis site, no bleeding noted, patient resting in bed, no acute distress noted.
[2019-04-28 16:19] VITALS: BP_SYST 115
--- NOTE | 2019-04-28 18:05 | NUR ---
RN Rounds patient sitting up in bed eating dinner, patient tolerating well, patient denies any nausea.
[2019-04-28] MEDS: ALPRAZolam 0.25 MG TABLET PO PRN (18:27)
--- NOTE | 2019-04-28 19:20 | NUR ---
Closing Note bedside SBAR report given to receiving RN, patient resting in bed, educated patient on use of call light and asked to call for assistance, patient verbalized understanding, call light in reach, educated patient on use of bed alarm for patient safety, patient refusing bed alarm, bed in low and locked position, care endorsed to mini shifter RN.
[2019-04-28 20:00] VITALS: BP_SYST 136
[2019-04-28] MEDS: INSULIN GLARGINE 100 UNITS/ML 10 ML VIAL SQ SCH (21:00)
[2019-04-29] MEDS: DIPHENHYDRAMINE INJ 50 MG/ML VIAL IVP PRN ×6 (01:39→21:27)
[2019-04-29] MEDS: MORPHINE 4 MG/ML INJ. SYRINGE IVP PRN ×6 (01:39→21:25)
[2019-04-29] MEDS: PIPERACILLIN/TAZO 2.25G/DEX-IS 50 ML IV SCH ×3 (05:42→21:44)
[2019-04-29] MEDS: METOCLOPRAMIDE HCL 10 MG TABLET PO SCH ×3 (05:42→21:40)
[2019-04-29] MEDS: hydrALAZINE HCL 25 MG TABLET PO SCH ×3 (06:05→21:41)
[2019-04-29 07:45] VITALS: BP_SYST 116
--- NOTE | 2019-04-29 07:55 | NUR ---
INITIAL NOTE RECEIVED PT IN BED, NO S/S OF DISTRESS OR SOB NOTED, PT HAS NO C/O PAIN AT THIS TIME, PT IN STABLE CONDITION. PT AAOX4, VERBAL, IV CATHETER PATENT, SALINE LOCK, NO SIGNS OF INFECTION OR INFILTRATION NOTED. BED AT LOWEST POSITION, CALL LIGHT WITHIN REACH, WILL CONTINUE TO MONITOR PT FOR ANY CHANGES, FALL AND SAFETY PRECAUTIONS IN PLACE.
[2019-04-29] MEDS: DOCUSATE SODIUM 100 MG CAPSULE PO SCH ×2 (08:37→21:40)
[2019-04-29] MEDS: HYDROcodone/ACETAMIN 10-325 MG TAB PO PRN (08:38)
--- NOTE | 2019-04-29 10:13 | NUR ---
MEDICATION REASSESSMENT PT NO LONGER FEELS ITCHY, NOTED NOT RASH ON BODY, WILL CONTINUE TO MONITOR PT FOR ANY CHANGES.
--- NOTE | 2019-04-29 10:50 | NUR ---
ROUNDS PT IN BED, NO S/S OF DISTRESS OR SOB NOTED, PT HAS NO C/O PAIN AT THIS TIME, PT IN STABLE CONDITION, PT ON HER PHONE, WILL CONTINUE TO MONITOR PT FOR ANY CHANGES.
[2019-04-29] MEDS ORDERED: VANCOMYCIN HCL 750 MG in NS 250 ML IV SCH (11:00)
[2019-04-29] MEDS: INSULIN REGULAR, HUMAN 100 UNITS/ML, 10 ML VIAL (humuLIN R) SUBCUT PRN ×2 (11:05→17:31)
[2019-04-29 11:06] VITALS: BP_SYST 132
--- NOTE | 2019-04-29 11:20 | NUR ---
INSULIN PATIENT'S BLOOD GLUCOSE WAS 151, PT REFUSED INSULIN. WILL CONTINUE TO MONITOR PT FOR ANY CHANGES, NO SIGNS OF HYPERGLYCEMIA NOTED.
--- NOTE | 2019-04-29 14:03 | NUR ---
MEDICATION REASSESSMENT PT NO LONGER FEELS ITCHY, NOTED NOT RASH ON BODY, WILL CONTINUE TO MONITOR PT FOR ANY CHANGES.
[2019-04-29 16:50] VITALS: BP_SYST 124
--- NOTE | 2019-04-29 17:57 | NUR ---
MEDICATION REASSESSMENT PT NO LONGER FEELS ITCHY, NOTED NOT RASH ON BODY, WILL CONTINUE TO MONITOR PT FOR ANY CHANGES.
--- NOTE | 2019-04-29 18:19 | NUR ---
CLOSING NOTE PT IN BED, NO S/S OF DISTRESS OR SOB NOTED, PT HAS NO C/O PAIN AT THIS TIME, PT IN STABLE CONDITION. PT AAOX4, VERBAL, IV CATHETER PATENT, SALINE LOCK, NO SIGNS OF INFECTION OR INFILTRATION NOTED. BED AT LOWEST POSITION, CALL LIGHT WITHIN REACH, WILL ENDORSE CARE OF PT TO INCOMING NURSE, FALL AND SAFETY PRECAUTIONS IN PLACE.
--- NOTE | 2019-04-29 19:15 | NUR ---
OPENING NOTES RECEIVED PATIENT IN BED AAO X4. BREATHING UNLABORED ON ROOM AIR. NO C/O PAIN AT THIS TIME. IV LINE INTACT TO LFA. BED IN LOWEST LOCKED POSITION WITH ALARM ON.
[2019-04-29] MEDS: INSULIN GLARGINE 100 UNITS/ML 10 ML VIAL SQ SCH (21:00)
[2019-04-29 21:23] VITALS: BP_SYST 137
--- NOTE | 2019-04-29 21:47 | NUR ---
MED PASS PATIENT DUE MEDICATIONS GIVEN. MEDICATED FOR C/O PAIN TO RLE WITH MORPHINE ORDERED. VITAL SIGNS STABLE. FINGER STICK SUGAR 165. PATIENT REFUSED SLIDING SCALE COVERAGE AND LANTUS. PER PT HER SUGAR RUNS LOW IN THE MORNING.
[2019-04-30 01:44] VITALS: BP_SYST 147
[2019-04-30] MEDS: DIPHENHYDRAMINE INJ 50 MG/ML VIAL IVP PRN ×6 (01:48→23:17)
[2019-04-30] MEDS: MORPHINE 4 MG/ML INJ. SYRINGE IVP PRN ×5 (01:48→18:50)
--- NOTE | 2019-04-30 01:48 | NUR ---
PAIN MGT PATIENT MEDICATED WITH MORPHINE FOR C/O RLE PAIN. VITAL SIGNS SABLE.
[2019-04-30 05:28] VITALS: BP_SYST 152
[2019-04-30] MEDS: PIPERACILLIN/TAZO 2.25G/DEX-IS 50 ML IV SCH (05:30)
[2019-04-30] MEDS: hydrALAZINE HCL 25 MG TABLET PO SCH ×3 (05:31→22:19)
[2019-04-30] MEDS: METOCLOPRAMIDE HCL 10 MG TABLET PO SCH ×3 (05:31→22:19)
--- NOTE | 2019-04-30 05:40 | NUR ---
MED PASS/PAIN MGT PATIENT DUE MEDICATIONS GIVEN. MEDICATED WITH MORPHINE FOR C/O RLE PAIN 11/11. VITAL SIGNS STABLE. AM FINGER STICK SUGAR 106.
--- NOTE | 2019-04-30 06:33 | NUR ---
CLOSING NOTES PATIENT CONDITION UNCHANGED. PATIENT NEEDS ATTENDED. BED IN LOWEST LOCKED POSITION WITH ALARM ON. CALL LIGHT WITH IN REACH.
--- NOTE | 2019-04-30 07:20 | NUR ---
RN OPENING NOTE PATIENT IS AWAKE AND ALERT LAYING IN BED, NO SIGNS OF ANY DISTRESS, BREATHING IS EQUAL AND NON LABORED. PATIENT HAS ALL SAFETY PRECAUTIONS IN PLACE. PATIENT EDUCATED CONVERTIBLE POWER SHOVEL OPERATOR LIGHT FOR ASSISTANCE. CALL LIGHT IS WITH PATIENT.
[2019-04-30 08:00] VITALS: BP_SYST 151
[2019-04-30] MEDS: DOCUSATE SODIUM 100 MG CAPSULE PO SCH ×2 (09:08→20:19)
--- NOTE | 2019-04-30 09:08 | NUR ---
MEDICATION PATIENT IS AWAKE AND ALERT SITTING UP IN BED, NO SIGNS OF ANY DISTRESS, BREATHING IS EQUAL AND NON LABORED. PATIENT SCHEDULED MEDICATION GIVEN PER ORDER. PATIENT EDUCATED ALIGNING INSPECTOR LIGHT, CALL LIGHT IS WITH PATIENT. PATIENT HAS NO OTHER NEEDS AT THIS TIME. PATIENT HAS ALL SAFETY PRECAUTIONS IN PLACE. WILL CONTINUE TO MONITOR.
--- NOTE | 2019-04-30 12:28 | NUR ---
ACCU CHECK PATIENTS ACCU CHECK DONE, NO COVERAGE NEEDED. PATIENT HAS NO COMPLAINTS AT THIS TIME. PATIENT IS EATING LUNCH SITTING UP IN BED. PATIENT HAS CALL LIGHT WITH HER. EDUCATED TO USE FOR ASSISTANCE. NO OTHER NEEDS AT THIS TIME. WILL CONTINUE TO MONITOR.
[2019-04-30 12:30] VITALS: BP_SYST 137
--- NOTE | 2019-04-30 14:43 | NUR ---
pain medication/ itching patient complains of pain and itching, medicated per order. patient is awake and alert breathing is equal and non labored. patient educated production hardener light, call light is with patient. patient has no other needs at this time. will continue to monitor.
[2019-04-30 16:00] VITALS: BP_SYST 154
--- NOTE | 2019-04-30 17:46 | NUR ---
accu check Addendum: 04/30/19 at 1941 by Zoey Saucedo RN PATIENTS ACCU CHECK DONE, NO COVERAGE NEEDED. PATIENT HAS ALL SAFETY PRECAUTIONS IN PLACE. CALL LIGHT IS WITH PATIENT. EDUCATED TO USE CALL LIGHT FOR ASSISTANCE. NO OTHER COMPLAINTS AT THIS TIME. WILL CONTINUE TO MONITOR.
--- NOTE | 2019-04-30 18:50 | NUR ---
PAIN MEDICATION/ MEDICATION FOR ITCHING PATIENT COMPLAINS OF PAIN AND ITCHING MEDICATED PER ORDER. PATIENT EDUCATED TO USE CALL LIGHT FOR ASSISTANCE. CALL LIGHT IS WITH PATIENT. PATIENT HAS NO OTHER COMPLAINTS AT THIS TIME. PATIENT HAS ALL SAFETY PRECAUTION IN PLACE.
--- NOTE | 2019-04-30 19:39 | NUR ---
RN CLOSING NOTE REPORT WAS ENDORSED TO NIGHT NURSE. PATIENT IS AWAKE AND ALERT SITTING UP IN BED. PATIENT HAS NO COMPLAINTS AT THIS TIME. CALL LIGHT IS WITH HER. EDUCATED TO USE CALL LIGHT FOR ASSISTANCE. PATIENT INTRODUCED TO NIGHT NURSE AT BEDSIDE. ALL SAFETY PRECAUTIONS IN PLACE.
--- NOTE | 2019-04-30 19:47 | NUR ---
Opening Note Received report from dayshift RN, patient is resting in bed, no signs of acute distress, awake, A/Ox4, even and unlabored breathing on room air, IV to left FA saline locked, no redness, no swelling, no infiltration noted, safety and fall precautions in place, bed locked and in lowest position, patient refused bed alarm despite education, will reinforce education regarding bed alarm system, two side rails up, call light with patient, will continue to monitor.
[2019-04-30 20:00] VITALS: BP_SYST 155
[2019-04-30] MEDS: AMPICILLIN SODIUM/SULBACTAM NA 1.5 GM in NS 50 ML IV SCH (20:19)
--- NOTE | 2019-04-30 20:19 | NUR ---
Blood Sugar= 175 Patient's blood sugar is 175. Patient refused insulin coverage per insulin sliding scale despite education. Patient is resting in bed, no signs of acute distress. Safety and fall precautions in place, call light with patient, will continue to monitor.
[2019-04-30] MEDS: INSULIN REGULAR, HUMAN 100 UNITS/ML, 10 ML VIAL (humuLIN R) SUBCUT PRN (20:22)
[2019-04-30] MEDS: INSULIN GLARGINE 100 UNITS/ML 10 ML VIAL SQ SCH (20:22)
--- NOTE | 2019-04-30 22:42 | NUR ---
Dr. Palmer Rounds Dr. Palmer at bedside at this time.
[2019-04-30] MEDS: HYDROmorphone 2 MG/ML VIAL IVP PRN (23:18)
--- NOTE | 2019-04-30 23:18 | NUR ---
Pain/Itching Patient complains of pain 8/10 to her right upper thigh and severe itching. PRN Dilaudid and Benadryl indicated per MD order. Educated patient on medications uses and potential side effects, patient able to verbalize understanding. Administered medication per MD order. Patient tolerated well. Safety and fall precautions in place, call light with patient, will continue to monitor.
[2019-05-01] VITALS: BP_SYST 157
[2019-05-01] MEDS: ALPRAZolam 0.25 MG TABLET PO PRN (02:26)
--- NOTE | 2019-05-01 02:26 | NUR ---
Anxiety Patient complains of anxiety at this time and asked for PRN Xanax medication. PRN Xanax indicated per MD order. Educated patient on medication uses and potential side effects, patient able to verbalize understanding. Administered medication per MD order. Patient tolerated well. Safety and fall precautions in place, call light with patient, will continue to monitor.
[2019-05-01] MEDS: DIPHENHYDRAMINE INJ 50 MG/ML VIAL IVP PRN ×5 (03:26→20:04)
[2019-05-01] MEDS: HYDROmorphone 2 MG/ML VIAL IVP PRN ×4 (03:28→16:09)
[2019-05-01] MEDS: METOCLOPRAMIDE HCL 10 MG TABLET PO SCH ×3 (05:11→21:15)
[2019-05-01] MEDS: hydrALAZINE HCL 25 MG TABLET PO SCH ×3 (05:13→21:17)
--- NOTE | 2019-05-01 06:00 | NUR ---
Blood Sugar= 137 Patient's blood sugar is 137. No insulin coverage per insulin sliding scale at this time. Patient is resting in bed, no signs of acute distress. Safety and fall precautions in place, call light with patient, will continue to monitor.
--- NOTE | 2019-05-01 07:04 | NUR ---
Closing Note Patient is resting in bed, no signs of acute distress, awake, complains of itching but verbalized that she can wait for her next PRN Benadryl, even and unlabored breathing on room air, IV to left FA saline locked, no redness, no swelling, no infiltration noted, safety and fall precautions in place, bed locked and in lowest position, patient refused bed alarm despite education, two side rails up, call light with patient, will endorse care to dayshift RN.
[2019-05-01 07:31] LABS: BASOPHILS % (AUTO) 0.4 % (0.0-2.0); EOSINOPHILS # (AUTO) 0.2 K/uL (0.0-0.4); EOSINOPHILS % (AUTO) 3.4 % (0.0-4.0); HEMATOCRIT 37.9 % (36-48); HEMOGLOBIN 12.1 g/dL (12.0-16.0); LYMPHOCYTES # (AUTO) 1.1 K/uL (1.0-5.5); LYMPHOCYTES % (AUTO) 20.9 % (20.5-51.5); MEAN CORPUSCULAR HEMOGLOBIN 32 pg (27-31); MEAN CORPUSCULAR HGB CONC 32 % (32-36); MEAN CORPUSCULAR VOLUME 101 fL (79.0-98.0); MONOCYTES # (AUTO) 0.4 K/uL (0.0-1.0); MONOCYTES % (AUTO) 7.1 % (1.7-9.3); NEUTROPHILS # (AUTO) 3.6 K/uL (1.8-7.7); NEUTROPHILS % (AUTO) 68.2 % (40.0-70.0); PLATELET COUNT (AUTO) 109 K/uL (130-430); RED BLOOD CELL COUNT(AUTO) 3.77 MIL/uL (4.2-6.2); WHITE BLOOD COUNT (AUTO) 5.2 K/uL (4.8-10.8)
--- NOTE | 2019-05-01 07:51 | NUR ---
OPENING NOTES, PT IN BED, C/O PAIN 11/11, NO SOB, NO RESP DISTRESS. BP ELEVEATED, PT STATED THAT HER BLOOD PRESSURE GOES DOWN DURING DIALYSIS. WILL MEDICATE FOR PAIN.
[2019-05-01 07:53] VITALS: BP_SYST 188
--- NOTE | 2019-05-01 08:01 | NUR ---
PAIN MED DILAUDID AND BENADRYL GIVEN.
[2019-05-01 08:02] LABS: CALCIUM 9.5 mg/dL (8.4-11.0); POTASSIUM 4.6 mmol/L (3.5-5.1); VANCOMYCIN,RANDOM 28.5 ug/mL
[2019-05-01] MEDS: DOCUSATE SODIUM 100 MG CAPSULE PO SCH ×2 (08:02→19:59)
[2019-05-01] MEDS: AMPICILLIN SODIUM/SULBACTAM NA 1.5 GM in NS 50 ML IV SCH ×2 (08:14→19:59)
[2019-05-01 08:30] LABS: CREATININE 8.1 mg/dL (0.55-1.30)
[2019-05-01 11:34] VITALS: BP_SYST 184
--- NOTE | 2019-05-01 12:02 | NUR ---
pain med given.
[2019-05-01 15:02] VITALS: BP_SYST 127
--- NOTE | 2019-05-01 15:39 | NUR ---
hd done, per report out put was 4800 ml and last bp is 128/75.
--- NOTE | 2019-05-01 17:33 | NUR ---
pt sitting on edge of bed, eating dinner.
--- NOTE | 2019-05-01 17:39 | NUR ---
pt refused insulin coverage.
--- NOTE | 2019-05-01 19:30 | NUR ---
INITIAL NOTES Received handoff report from offgoing nurse at the bedside. Patient is AAOx4, resting comfortably in bed. No SOB, no acute distress. Patient states that she had just been seen by the MD, and that the MD changed her current dose of dilaudid to be Q3H instead of Q4H. Patient has complaints of pain. Will medicate for pain. Bed is locked, lowest position, 2x side rails up, bed alarm is on. Call light is within reach. Encouraged patient to call for assistance. Will continue with plan of care.
[2019-05-01] MEDS: HYDROmorphone 1 MG INJ. 1 MG/ML AMPUL IVP PRN ×2 (19:53→23:10)
--- NOTE | 2019-05-01 19:53 | NUR ---
Patient is complaining of leg pain 11/11. Provided patient with Dilaudid 1mg PRN per MD order, see eMAR for details.
[2019-05-01] MEDS: INSULIN REGULAR, HUMAN 100 UNITS/ML, 10 ML VIAL (humuLIN R) SUBCUT PRN (19:56)
[2019-05-01] MEDS: INSULIN GLARGINE 100 UNITS/ML 10 ML VIAL SQ SCH (19:57)
--- NOTE | 2019-05-01 19:58 | NUR ---
Patients bedside blood glucose is 191. Patient refuses insulin coverage at this time. Also refuses scheduled Lantus dose. Explained risk and benefits, but patient still refused.
[2019-05-01 20:00] VITALS: BP_SYST 156
--- NOTE | 2019-05-01 20:04 | NUR ---
Patient states that she is itchy. States that she received Morphine earlier in her stay at the hospital, and "morphine always makes me so itchy, I get rashes, and I keep scratching myself. I'm still itchy even though its been a while. 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 Provided benadryl PRN per MD order, see eMAR for details.
--- NOTE | 2019-05-01 22:00 | NUR ---
Patient requested for something to drink. Provided patient with 3 apple juices per patient request.
--- NOTE | 2019-05-01 23:10 | NUR ---
Patient requesting for pain medication, 11/11 pain. Provided patient with Dilaudid 1mg PRN per MD order, see eMAR for details.
[2019-05-02 00:30] VITALS: BP_SYST 152
[2019-05-02] MEDS: HYDROmorphone 1 MG INJ. 1 MG/ML AMPUL IVP PRN ×7 (02:17→21:42)
[2019-05-02] MEDS: DIPHENHYDRAMINE INJ 50 MG/ML VIAL IVP PRN ×5 (02:17→18:57)
--- NOTE | 2019-05-02 02:17 | NUR ---
Patient requesting for pain medication, / sharp pain to right leg. Provided patient with Dilaudid 1mg PRN per MD order, see eMAR for details. Addendum: 05/02/19 at 0322 by Amy Nichols RN Editing note* Patient requesting for pain medication, 12/12 sharp pain to right leg. Provided patient with Dilaudid 1mg PRN per MD order, see eMAR for details.
--- NOTE | 2019-05-02 03:21 | NUR ---
Patient resting comfortably in bed, eyes closed. Breathing even and unlabored, with visible chest rise and fall noted. No SOB, no acute distress, no signs of pain or facial grimacing noted. Bed is locked, lowest position, 2x side rails up, bed alarm is on. Call light is within reach.
[2019-05-02 05:25] VITALS: BP_SYST 144
[2019-05-02] MEDS: METOCLOPRAMIDE HCL 10 MG TABLET PO SCH ×3 (05:25→21:11)
[2019-05-02] MEDS: hydrALAZINE HCL 25 MG TABLET PO SCH ×3 (05:25→21:10)
--- NOTE | 2019-05-02 05:25 | NUR ---
PATIENT IS COMPLAINING OF PAIN. PROVIDED DILAUDID PRN PER MD ORDER, SEE EMAR FOR DETAILS.
--- NOTE | 2019-05-02 06:11 | NUR ---
Patients bedside blood sugar is 140. No insulin coverage needed. Provided patient with toiletries per patient request.
[2019-05-02] MEDS: AMPICILLIN SODIUM/SULBACTAM NA 1.5 GM in NS 50 ML IV SCH ×2 (08:13→21:04)
[2019-05-02] MEDS: DOCUSATE SODIUM 100 MG CAPSULE PO SCH ×2 (08:13→21:11)
--- NOTE | 2019-05-02 08:15 | NUR ---
OPENING NOTES, PT IN BED, NO SOB, NO RESP DISTRESS. NO FEVER. SAFETY PRECAUTION IN PLACE. CALL LIGHT IN REACH. BED IN LOW POSITION. WILL MEDICATE FOR PAIN AND ITCHING NEEDED. ENCOURAGED TO CALL FOR ASSIST AND PAIN MED.
[2019-05-02 11:14] VITALS: BP_SYST 134
--- NOTE | 2019-05-02 11:30 | NUR ---
PT IN BE, NO SOB, NO DISTRESS. CALL LIGHT IN REACH.
[2019-05-02 15:17] VITALS: BP_SYST 154
[2019-05-02 20:00] VITALS: BP_SYST 156
--- NOTE | 2019-05-02 20:00 | NUR ---
A/A/O X4.DENIES ANY DISCOMFORT @ THIS TIME.AFEBRILE.RFA AV SHUNT WITH GOOD BRUIT.NOTED RIGHT LEG WITH REDNESS & SWOLLEN.RIGHT BIG TOE WITH SCAB.LEFT BIG TOE WITH BLACK DISCOLORATION.NOTED WITH GENERALIZED DRY SCABS. PER PT SHE IS ANURIC.
--- NOTE | 2019-05-02 20:06 | NUR ---
CLOSING NOTES, PT HAS BEEN STABLE THE WHOLE SHIFT, PT GIVEN PAIN MEDICATION DILAUDID AND ITCHING MEDICATION BENADRYL REQUESTED BY PT. PT MADE AWARE OF THE POC ( HD IN AM) . ALL NEEDS ATTENDED TO AND MET. ENDORSED TO NIGHT NURSE.
[2019-05-02] MEDS: INSULIN GLARGINE 100 UNITS/ML 10 ML VIAL SQ SCH (21:00)
--- NOTE | 2019-05-02 21:00 | NUR ---
FINGER STICK BLD SUGAR 147.REFUSED LANTUS STATED APPETITE IS POOR.
--- NOTE | 2019-05-02 21:42 | NUR ---
C/O SHARP PAIN ON HER RIGHT LEG SCALE 9/10.DILAUDID 1 MG IVP ADM. WILL CON'T TO MONITOR FOR PAIN.
--- NOTE | 2019-05-02 22:12 | NUR ---
PER PT PAIN STILL PERSIST BUT DECREASED TO SCALE 2/10.
[2019-05-03] MEDS: DIPHENHYDRAMINE INJ 50 MG/ML VIAL IVP PRN ×5 (00:41→22:51)
--- NOTE | 2019-05-03 00:41 | NUR ---
KEPT ITCHING & REQUESTED HER PRN MED & MED FOR PAIN. BENADRYL 25 MG IVP & DILAUDID 1 MG IVP ADM.WILL CON'T TO MONITOR FOR PAIN & ITCHING.
[2019-05-03] MEDS: HYDROmorphone 1 MG INJ. 1 MG/ML AMPUL IVP PRN ×10 (00:45→22:51)
--- NOTE | 2019-05-03 01:15 | NUR ---
RESTING COMFORTABLY WITH BOTH EYES CLOSED.NO ACUTE DISTRESS NOTED.
--- NOTE | 2019-05-03 03:35 | NUR ---
C/O SHARP PAIN ON HER RIGHT LEG. SCALE 8/10NOTED WITH FACIAL GRIMACING. DILAUDID IV MED ADM.
--- NOTE | 2019-05-03 04:05 | NUR ---
RESTING COMFORTABLY POST DILAUDID BUT EASILY AROUSABLE.
[2019-05-03] MEDS ORDERED: VANCOMYCIN HCL 750 MG in NS 250 ML IV ONE (06:00)
--- NOTE | 2019-05-03 06:00 | NUR ---
FINGER STICK BLD SUGAR 106.
[2019-05-03] MEDS: METOCLOPRAMIDE HCL 10 MG TABLET PO SCH ×3 (06:52→22:52)
[2019-05-03] MEDS: hydrALAZINE HCL 25 MG TABLET PO SCH ×3 (06:52→22:52)
--- NOTE | 2019-05-03 07:06 | NUR ---
ENDORSED IN NO ACUTE DISTRESS.NO S/S OF HYPO/HYPERGLYCEMIA NOTED.SAFETY MAINTAINED.CALL LIGHT WITHIN REACH.
[2019-05-03 07:07] LABS: BASOPHILS % (AUTO) 0.3 % (0.0-2.0); EOSINOPHILS # (AUTO) 0.1 K/uL (0.0-0.4); EOSINOPHILS % (AUTO) 2.9 % (0.0-4.0); HEMATOCRIT 34.5 % (36-48); HEMOGLOBIN 11.2 g/dL (12.0-16.0); LYMPHOCYTES # (AUTO) 1.2 K/uL (1.0-5.5); LYMPHOCYTES % (AUTO) 24.4 % (20.5-51.5); MEAN CORPUSCULAR HEMOGLOBIN 32 pg (27-31); MEAN CORPUSCULAR HGB CONC 32 % (32-36); MEAN CORPUSCULAR VOLUME 100 fL (79.0-98.0); MONOCYTES # (AUTO) 0.3 K/uL (0.0-1.0); MONOCYTES % (AUTO) 6.3 % (1.7-9.3); NEUTROPHILS # (AUTO) 3.1 K/uL (1.8-7.7); NEUTROPHILS % (AUTO) 66.1 % (40.0-70.0); PLATELET COUNT (AUTO) 89 K/uL (130-430); RED BLOOD CELL COUNT(AUTO) 3.47 MIL/uL (4.2-6.2); RED CELL DISTRIBUTION WIDTH 17.9 % (9.0-15.0); WHITE BLOOD COUNT (AUTO) 4.7 K/uL (4.8-10.8)
--- NOTE | 2019-05-03 07:30 | NUR ---
OPENING NOTES: RECEIVED PATIENT FROM MACHINE RECORDS UNITS SUPERVISOR NURSE. PATIENT IS ASLEEP LAYING DOWN IN BED. NO SIGNS OF DISTRESS OR SHORTNESS OF BREATH NOTED. IV SITE INTACT WITH NO SIGNS OF INFILTRATION NOTED. PATIENT IN STABLE CONDITION. SAFETY, FALL AND ASPIRATION PRECAUTIONS ARE IN PLACE. BED LOCKED IN LOWEST POSITION WITH CALL LIGHT IN REACH. WILL CONTINUE TO MONITOR PATIENT FOR ANY CHANGES.
[2019-05-03 07:43] LABS: ALBUMIN 3.1 g/dL (3.4-4.8); PHOSPHORUS 8.1 mg/dL (2.7-4.5); POTASSIUM 4.5 mmol/L (3.5-5.1); TOTAL BILIRUBIN 0.9 mg/dL (0.0-1.0)
[2019-05-03 08:07] VITALS: BP_SYST 160
[2019-05-03 08:12] LABS: CREATININE 7.73 mg/dL (0.55-1.30)
[2019-05-03] MEDS: DOCUSATE SODIUM 100 MG CAPSULE PO SCH ×2 (09:16→20:49)
[2019-05-03] MEDS: AMPICILLIN SODIUM/SULBACTAM NA 1.5 GM in NS 50 ML IV SCH (09:16)
--- NOTE | 2019-05-03 10:05 | NUR ---
RN ROUNDS: PATIENT IS AWAKE AND ALERT x4 LAYING DOWN IN BED. DIALYSIS NURSE SETTING UP AT BEDSIDE. NO SIGNS OF DISTRESS OR SHORTNESS OF BREATH NOTED. PATIENT IN STABLE CONDITION. WILL CONTINUE TO MONITOR PATIENT FOR ANY CHANGES.
[2019-05-03] MEDS: ALPRAZolam 0.25 MG TABLET PO PRN (11:45)
--- NOTE | 2019-05-03 12:20 | NUR ---
RN ROUNDS: PATIENT IS AWAKE AND ALERT x4 LAYING DOWN IN BED. DIALYSIS NURSE AT BEDSIDE. NO SIGNS OF DISTRESS OR SHORTNESS OF BREATH NOTED. PATIENT IN STABLE CONDITION. WILL CONTINUE TO MONITOR PATIENT FOR ANY CHANGES.
[2019-05-03 12:30] VITALS: BP_SYST 149
--- NOTE | 2019-05-03 14:00 | NUR ---
RN ROUNDS: PATIENT IS AWAKE AND ALERT x4 LAYING DOWN IN BED. PRN PAIN MEDS GIVEN. PATIENT IS TOLERATING OXYGEN AT ROOM AIR WITH NO SIGNS OF DISTRESS OR SHORTNESS OF BREATH NOTED. PATIENT IN STABLE CONDITION. WILL CONTINUE TO MONITOR PATIENT FOR ANY CHANGES.
--- NOTE | 2019-05-03 14:06 | NUR ---
Nutrition F/U Admitting Diagnosis: Missed dialysis, cellulitis of RLE Medical History Comment: MD notes reduced swelling and redness in the right leg, uremia with hyperkalemia and fluid overload improving. Subjective Information: Pt seen resting in bed, appeared agitated. Lunch tray 50% consumed at bedside. Pt reports no appetite and does not eat at home, usually drinks Nepro supplements twice a day only. Pt reports dry weight at 63kg -- difference of 14kg likely d/t fluid overload. Hemodialysis pending today. RD encouraged PO intake, obtained food preferences. No family at bedside. Pt has received renal diet education before, declined RD offer for further education. Anthropometrics taken via bedscale. Current Diet Order/Nutrition Support: Renal x 1 day PO intake: 65% avg x 12 meals Labs (05/03/19) Cr: 7.73, BUN: 53H, eGFR: 8L, POC: 134H, 149H, 147H, 124H Estimated Energy Expenditure (kcals/day) 9330-3332 kcal/day (30-35 kcal/kg IBW for chronic Dz) Estimated Protein Required (g/day) 73-85 gm/day (1.2-1.5 gm/kg IBW for ESRD/HD) Estimated Fluid Required (l/day) Per physician d/t ESRD Problem/Etiology/Signs/Symptoms Altered nutrition-related labs related to renal dysfunction as evidenced by abnormal BUN, CRE, ALP, and phosphorus lab values. *ongoing* Expected Outcomes/Goals - Monitor appetite and PO intakes w/ goal of pt meeting at least 75% of estimated nutritional needs, labs trending WNL, normal GI function, and skin integrity/wt maintenance Dietitian Recommendations * Continue renal diet * Consider Nepro, 1 can daily d/t pt report of poor appetite Follow Up Mod Risk: F/U in 3-5 days
--- NOTE | 2019-05-03 14:20 | NUR ---
Dietitian Recommendations * Continue renal diet * Consider Nepro, 1 can daily d/t pt report of poor appetite Please see Nutrition Follow Up for further details. LT, RD
--- NOTE | 2019-05-03 16:20 | NUR ---
RN ROUNDS: PATIENT IS ASLEEP LAYING DOWN IN BED. NO SIGNS OF DISTRESS OR SHORTNESS OF BREATH NOTED. PATIENT IN STABLE CONDITION. WILL CONTINUE TO MONITOR PATIENT FOR ANY CHANGES.
[2019-05-03 16:26] VITALS: BP_SYST 132
--- NOTE | 2019-05-03 16:56 | NUR ---
INSULIN: PATIENT REFUSED 2 UNITS OF INSULIN FOR BLOOD SUGAR OF 158. PATIENT STATES "I DO NOT WANT TO BE POKED FOR JUST 2 UNITS OF INSULIN". WILL CONTINUE TO MONITOR PATIENT FOR ANY CHANGES.
--- NOTE | 2019-05-03 18:31 | NUR ---
CLOSING NOTES: PATIENT IS AWAKE AND ALERT x4 LAYING DOWN IN BED. NO SIGNS OF DISTRESS OR SHORTNESS OF BREATH NOTED. IV SITE INTACT WITH NO SIGNS OF INFILTRATION NOTED. PATIENT TOLERATING OXYGEN ON ROOM AIR. PATIENT IN STABLE CONDITION. SAFETY, FALL AND ASPIRATION PRECAUTIONS REMAINED IN PLACE THROUGHOUT THE SHIFT. BED LOCKED IN LOWEST POSITION WITH CALL LIGHT IN REACH. WILL ENDORSE PATIENT CARE TO ONCOMING COMMUNICATIONS MEDIA PROFESSOR NURSE.
[2019-05-03 20:45] VITALS: BP_SYST 144
--- NOTE | 2019-05-03 20:45 | NUR ---
Opening notes Pt awake, no s/s distress noted. VSS, pt c/o RLE pain 8/10 medicated with PRN pain med Dilaudid 1mg as needed. IV saline lock L. FA 20G clear and patent. R. arm AV shunt. Generalized scabs noted. Call light within reach. Bed low, locked, siderails up x2. To monitor.
[2019-05-03] MEDS: DOXYCYCLINE HYCLATE 100 MG CAPSULE PO SCH (20:49)
[2019-05-03] MEDS: INSULIN GLARGINE 100 UNITS/ML 10 ML VIAL SQ SCH (20:57)
[2019-05-03 23:58] VITALS: BP_SYST 141
[2019-05-04] MEDS: HYDROmorphone 1 MG INJ. 1 MG/ML AMPUL IVP PRN ×9 (01:13→23:38)
[2019-05-04] MEDS: DIPHENHYDRAMINE INJ 50 MG/ML VIAL IVP PRN (03:00)
--- NOTE | 2019-05-04 03:15 | NUR ---
Pain med Pt c/o RLL pain 11/11, medicated with Dilaudid 1mg IVP LFA 20G clear and patent. Call light within reach. Safety maintained. To monitor.
[2019-05-04] MEDS: METOCLOPRAMIDE HCL 10 MG TABLET PO SCH ×3 (05:24→23:33)
[2019-05-04] MEDS: hydrALAZINE HCL 25 MG TABLET PO SCH ×3 (05:29→23:35)
--- NOTE | 2019-05-04 05:30 | NUR ---
Pain med Pt asleep, easily arousable. Pt c/o pain 11/11, medicated with Dilaudid 1mg IVP as needed. Call light within reach. To monitor.
[2019-05-04 06:48] VITALS: BP_SYST 164
--- NOTE | 2019-05-04 07:19 | NUR ---
Closing notes Pt asleep, easily arousable. No s/s distress noted. BS checked 104. IV saline lock L FA 20G clear and patent. Lab called and will draw lab. Call light within reach. Safety maintained. Endorsed to AM nurse.
[2019-05-04 08:00] VITALS: BP_SYST 163
[2019-05-04] MEDS: DOCUSATE SODIUM 100 MG CAPSULE PO SCH ×2 (09:36→20:31)
[2019-05-04] MEDS: DOXYCYCLINE HYCLATE 100 MG CAPSULE PO SCH ×2 (09:36→20:31)
[2019-05-04 11:18] VITALS: BP_SYST 176
[2019-05-04 15:27] VITALS: BP_SYST 174
[2019-05-04 20:00] VITALS: BP_SYST 177
--- NOTE | 2019-05-04 20:00 | NUR ---
Opening notes Pt resting in bed. No s/s distress noted. Pt c/o R lower leg pain. IV saline lock on L. FA 20G clear and patent. Pt to have HD tomorrow. Plan of care discussed with pt. Call light within reach. Bed low, locked, siderails up x2. To monitor.
[2019-05-04] MEDS: INSULIN GLARGINE 100 UNITS/ML 10 ML VIAL SQ SCH (20:38)
--- NOTE | 2019-05-04 20:38 | NUR ---
Blood sugar BS checked 175, pt refused scheduled lantus and sliding scale insulin. HS snack apple juice given to pt. To monitor.
[2019-05-05] VITALS: BP_SYST 185
[2019-05-05 01:22] VITALS: BP_SYST 141
[2019-05-05] MEDS: HYDROmorphone 1 MG INJ. 1 MG/ML AMPUL IVP PRN ×7 (01:24→16:31)
--- NOTE | 2019-05-05 01:24 | NUR ---
Pain Pt c/o pain R. leg, Dilaudid 1mg IVP administered as needed L.FA 20G clear and patent. Call light within reach. Safety maintained. To monitor.
--- NOTE | 2019-05-05 02:40 | NUR ---
Rounds Pt asleep, no s/s distress or discomfort noted. Call light within reach. Bed low, locked, siderails up x2. To monitor.
[2019-05-05] MEDS: hydrALAZINE HCL 25 MG TABLET PO SCH ×2 (06:00→14:00)
[2019-05-05] MEDS: METOCLOPRAMIDE HCL 10 MG TABLET PO SCH ×2 (06:17→14:22)
--- NOTE | 2019-05-05 06:30 | NUR ---
Closing notes/Pain Pt asleep, no s/s distress noted. No c/o nausea. Pain med given as needed L. FA 20G no s/s infiltration. Safety maintained. To have HD today. Daily weights checked. Call light within reach. To endorse to AM nurse.
--- NOTE | 2019-05-05 07:23 | NUR ---
Patient is asleep but arousable, A/Ox4. IV on left FA, #20, site intact and patent. AV shunt on right arm. Generalized scabs noted. Call light within reach. Bed locked at the lowest position, siderails up x2. Will continue to monitor.
[2019-05-05 07:41] LABS: BASOPHILS % (AUTO) 0.4 % (0.0-2.0); EOSINOPHILS # (AUTO) 0.1 K/uL (0.0-0.4); EOSINOPHILS % (AUTO) 2.1 % (0.0-4.0); HEMATOCRIT 37.2 % (36-48); HEMOGLOBIN 11.8 g/dL (12.0-16.0); LYMPHOCYTES # (AUTO) 1.1 K/uL (1.0-5.5); LYMPHOCYTES % (AUTO) 19.1 % (20.5-51.5); MEAN CORPUSCULAR HEMOGLOBIN 32 pg (27-31); MEAN CORPUSCULAR HGB CONC 32 % (32-36); MEAN CORPUSCULAR VOLUME 100 fL (79.0-98.0); MONOCYTES # (AUTO) 0.4 K/uL (0.0-1.0); MONOCYTES % (AUTO) 7.6 % (1.7-9.3); NEUTROPHILS # (AUTO) 3.9 K/uL (1.8-7.7); NEUTROPHILS % (AUTO) 70.8 % (40.0-70.0); PLATELET COUNT (AUTO) 103 K/uL (130-430); RED BLOOD CELL COUNT(AUTO) 3.74 MIL/uL (4.2-6.2); RED CELL DISTRIBUTION WIDTH 17.4 % (9.0-15.0); WHITE BLOOD COUNT (AUTO) 5.5 K/uL (4.8-10.8)
[2019-05-05] MEDS: DOXYCYCLINE HYCLATE 100 MG CAPSULE PO SCH (07:48)
[2019-05-05] MEDS: DOCUSATE SODIUM 100 MG CAPSULE PO SCH (07:48)
[2019-05-05 07:52] VITALS: BP_SYST 157
[2019-05-05 08:05] LABS: CALCIUM 9.1 mg/dL (8.4-11.0); CREATININE 7.41 mg/dL (0.55-1.30); PHOSPHORUS 7.8 mg/dL (2.7-4.5); POTASSIUM 4.7 mmol/L (3.5-5.1)
[2019-05-05] MEDS: DIPHENHYDRAMINE INJ 50 MG/ML VIAL IVP PRN ×2 (11:56→16:30)
[2019-05-05] MEDS: ALPRAZolam 0.25 MG TABLET PO PRN (12:41)
--- NOTE | 2019-05-05 14:43 | NUR ---
ATTENDING MD THREAD TWISTER DR FULLER WAS CALLED, RE: DISCHARGE ORDER. SPOKE TO RISA.
--- NOTE | 2019-05-05 14:44 | NUR ---
DC Planning: Phoned Fabio Cole for discharge planning. The md gave dc order to TEMI Vega to dc pt today after HD. Home/ ABX meds to contact ID for prescription as needed.
--- NOTE | 2019-05-05 15:10 | NUR ---
HD completed. 3-L removed. Blood pressure 149/83
--- NOTE | 2019-05-05 15:18 | NUR ---
Dr. Stearns is called about prescription. He states to switch to Doxycycline 100mg BID x 7 days
--- NOTE | 2019-05-05 15:35 | NUR ---
Dr. Palmer is called about ordering the discharge medication recommended by Dr. Maher for the patient. Awaiting call back.
[2019-05-05 16:00] VITALS: BP_SYST 149
[2019-05-05] MEDS ORDERED: DOXY100C PO (16:19)
== END 2019-05-05 17:15 | disposition home or self-care (01) | DRG 602 ==
LOC: SED 18:35 → STU 23:10 → SMU 05-02 23:25
PROVIDERS: ADMIT Internal Medicine; ATTEND Internal Medicine
PROC: 5A1D70Z Performance of Urinary Filtration, Intermittent, Less than 6 Hours Per Day (ICD-10-PCS; principal; 2019-04-27)
PROC: 5A1D70Z Performance of Urinary Filtration, Intermittent, Less than 6 Hours Per Day (ICD-10-PCS; 2019-04-28)
PROC: 5A1D70Z Performance of Urinary Filtration, Intermittent, Less than 6 Hours Per Day (ICD-10-PCS; 2019-05-01)
PROC: 5A1D70Z Performance of Urinary Filtration, Intermittent, Less than 6 Hours Per Day (ICD-10-PCS; 2019-05-03)
PROC: 5A1D70Z Performance of Urinary Filtration, Intermittent, Less than 6 Hours Per Day (ICD-10-PCS; 2019-05-05)
DX: L03.115 Cellulitis of right lower limb (principal); N18.6 End stage renal disease; I13.2 Hypertensive heart and chronic kidney disease with heart failure and with stage 5 chronic kidney disease, or end stage renal disease; E87.1 Hypo-osmolality and hyponatremia; L30.9 Dermatitis, unspecified; L97.529 Non-pressure chronic ulcer of other part of left foot with unspecified severity; E10.51 Type 1 diabetes mellitus with diabetic peripheral angiopathy without gangrene; I87.2 Venous insufficiency (chronic) (peripheral); I50.9 Heart failure, unspecified; G89.4 Chronic pain syndrome; D63.1 Anemia in chronic kidney disease; L94.2 Calcinosis cutis; G90.8 Other disorders of autonomic nervous system; E10.22 Type 1 diabetes mellitus with diabetic chronic kidney disease; E10.621 Type 1 diabetes mellitus with foot ulcer; L97.519 Non-pressure chronic ulcer of other part of right foot with unspecified severity; E10.40 Type 1 diabetes mellitus with diabetic neuropathy, unspecified; E10.319 Type 1 diabetes mellitus with unspecified diabetic retinopathy without macular edema; Z99.2 Dependence on renal dialysis; Z88.8 Allergy status to other drugs, medicaments and biological substances; Z88.5 Allergy status to narcotic agent; Z79.899 Other long term (current) drug therapy; Z79.4 Long term (current) use of insulin; Z90.49 Acquired absence of other specified parts of digestive tract; Z91.040 Latex allergy status
CPT/HCPCS: 36415; 71045; 80048; 80053; 80202-TC; 82962; 83605; 83690-TC; 83880; 84100-TC; 84484; 85025; 85610-TC; 85730-TC; 87040-TC; 87070-TC; 87081; 90935; 90937; 93005; 93970; 96374; 96375; 96376; 99285; C9113; G0378; J0295; J0360; J1170; J1200; J1815; J2270; J2405; J2543; J3010; J3370; J7030; J7050; J8597

== ENCOUNTER 2019-06-06 18:51 | Inpatient (IN) | payer OTHER ==
[~2019-06-06] VITALS: Ht 170.2 cm; Wt 67.4 kg
[~2019-06-06 18:51] MED LIST changes: +DOXY100C PO; -HYDR-4274 PO; -POLY17PO4 PO
[2019-06-06 19:25] VITALS: BP_SYST 153
[2019-06-06 20:00] LABS: BASOPHILS % (AUTO) 0.8 % (0.0-2.0); EOSINOPHILS # (AUTO) 0.2 K/uL (0.0-0.4); HEMATOCRIT 35.4 % (36-48); HEMOGLOBIN 11.5 g/dL (12.0-16.0); LYMPHOCYTES # (AUTO) 1.5 K/uL (1.0-5.5); LYMPHOCYTES % (AUTO) 30.4 % (20.5-51.5); MEAN CORPUSCULAR HEMOGLOBIN 32 pg (27-31); MEAN CORPUSCULAR HGB CONC 33 % (32-36); MEAN CORPUSCULAR VOLUME 99 fL (79.0-98.0); MONOCYTES # (AUTO) 0.3 K/uL (0.0-1.0); MONOCYTES % (AUTO) 6.9 % (1.7-9.3); NEUTROPHILS # (AUTO) 2.9 K/uL (1.8-7.7); NEUTROPHILS % (AUTO) 57.9 % (40.0-70.0); PLATELET COUNT (AUTO) 107 K/uL (130-430); RED BLOOD CELL COUNT(AUTO) 3.58 MIL/uL (4.2-6.2); RED CELL DISTRIBUTION WIDTH 18.4 % (9.0-15.0)
[2019-06-06 20:15] LABS: CALCIUM 9.1 mg/dL (8.4-11.0)
[2019-06-06 20:21] LABS: ALBUMIN 3.6 g/dL (3.4-4.8); TOTAL BILIRUBIN 0.8 mg/dL (0.0-1.0)
[2019-06-06 20:34] LABS: CREATININE 8.13 mg/dL (0.55-1.30)
[2019-06-06] MEDS ORDERED: ONDANSETRON HCL 4 MG/2 ML VIAL IVP ONE (21:15)
[2019-06-06] MEDS ORDERED: fentaNYL CITRATE/PF 100 MCG/2 ML AMP IVP ONE ×2 (21:15→22:45)
[2019-06-06] MEDS ORDERED: SODIUM ZIRCONIUM CYCLOSILICATE 10 GM POWD.PACK PO ONE (21:30)
[2019-06-06] MEDS ORDERED: CALCIUM CHLORIDE 1 GM/10 ML DISP.SYRIN (14 mEq Ca++/SYR) IVP ONE (21:30)
[2019-06-06] MEDS ORDERED: INSULIN REGULAR, HUMAN 10 UNITS/0.1 ML INJ IVP ONE (22:00)
[2019-06-06] MEDS ORDERED: DEXTROSE 50% JECT 50 ML DISP.SYRIN IVP ONE (22:00)
[2019-06-06 22:24] LABS: INR 1.2 (0.8-1.2)
[2019-06-07] MEDS ORDERED: ACETAMINOPHEN 325 MG TABLET PO PRN
[2019-06-07] MEDS ORDERED: ONDANSETRON HCL 4 MG/2 ML VIAL IVP PRN
[2019-06-07 01:30] VITALS: BP_SYST 172
[2019-06-07] MEDS: HYDROmorphone 2 MG/ML VIAL IVP PRN ×6 (01:57→22:18)
[2019-06-07 04:00] VITALS: BP_SYST 151
[2019-06-07 07:58] VITALS: BP_SYST 122
[2019-06-07 12:34] VITALS: BP_SYST 166
[2019-06-07] MEDS: DIPHENHYDRAMINE INJ 50 MG/ML VIAL IVP PRN (13:10)
[2019-06-07] MEDS: BALSAM PERU/CASTOR OIL 60 GM OINT...G. TP SCH (16:20)
[2019-06-07 16:47] VITALS: BP_SYST 129
[2019-06-07 20:00] VITALS: BP_SYST 145
[2019-06-07] MEDS: PIPERACILLIN/TAZO 2.25G/DEX-IS 50 ML IV SCH (22:19)
[2019-06-08] VITALS: BP_SYST 149
[2019-06-08] MEDS: HYDROmorphone 2 MG/ML VIAL IVP PRN ×6 (01:23→20:43)
[2019-06-08] MEDS: DIPHENHYDRAMINE INJ 50 MG/ML VIAL IVP PRN ×5 (02:25→22:06)
[2019-06-08] MEDS: PIPERACILLIN/TAZO 2.25G/DEX-IS 50 ML IV SCH ×3 (05:40→22:05)
[2019-06-08 08:00] VITALS: BP_SYST 142
[2019-06-08 12:15] VITALS: BP_SYST 130
[2019-06-08] MEDS: BALSAM PERU/CASTOR OIL 60 GM OINT...G. TP SCH (12:55)
[2019-06-08 17:32] VITALS: BP_SYST 140
[2019-06-08 20:00] VITALS: BP_SYST 113
[2019-06-08] MEDS: EMOLLIENT COMBINATION NO.73 78 GM CREAM..G. TP SCH (20:42)
[2019-06-09] VITALS: BP_SYST 122
[2019-06-09] MEDS: HYDROmorphone 2 MG/ML VIAL IVP PRN ×7 (00:06→23:14)
[2019-06-09] MEDS: DIPHENHYDRAMINE INJ 50 MG/ML VIAL IVP PRN ×5 (02:11→20:16)
[2019-06-09] MEDS: PIPERACILLIN/TAZO 2.25G/DEX-IS 50 ML IV SCH ×3 (05:24→22:43)
[2019-06-09 08:00] VITALS: BP_SYST 152
[2019-06-09 12:36] VITALS: BP_SYST 153
[2019-06-09 16:00] VITALS: BP_SYST 159
[2019-06-09] MEDS: EMOLLIENT COMBINATION NO.73 78 GM CREAM..G. TP SCH ×2 (16:14→20:15)
[2019-06-09] MEDS: BALSAM PERU/CASTOR OIL 60 GM OINT...G. TP SCH (16:14)
[2019-06-09 20:05] VITALS: BP_SYST 166
[2019-06-09] MEDS ORDERED: DEXTROSE 50% JECT 50 ML DISP.SYRIN IVP ONE (22:15)
[2019-06-09] MEDS ORDERED: INSULIN LISPRO SLIDING SCALE 100 UNITS/ML VIAL (humaLOG) SUBCUT PRN (22:15)
[2019-06-09] MEDS ORDERED: DEXTROSE 50% JECT 50 ML DISP.SYRIN IVP PRN (23:00)
[2019-06-10] MEDS: DIPHENHYDRAMINE INJ 50 MG/ML VIAL IVP PRN ×5 (00:25→21:46)
[2019-06-10 01:00] VITALS: BP_SYST 154
[2019-06-10] MEDS: HYDROmorphone 2 MG/ML VIAL IVP PRN ×7 (03:31→23:52)
[2019-06-10 05:23] LABS: BASOPHILS % (AUTO) 0.8 % (0.0-2.0); EOSINOPHILS # (AUTO) 0.3 K/uL (0.0-0.4); EOSINOPHILS % (AUTO) 6.8 % (0.0-4.0); HEMATOCRIT 37.9 % (36-48); HEMOGLOBIN 12.3 g/dL (12.0-16.0); LYMPHOCYTES % (AUTO) 25.9 % (20.5-51.5); MEAN CORPUSCULAR HEMOGLOBIN 32 pg (27-31); MEAN CORPUSCULAR HGB CONC 32 % (32-36); MEAN CORPUSCULAR VOLUME 99 fL (79.0-98.0); MONOCYTES # (AUTO) 0.3 K/uL (0.0-1.0); NEUTROPHILS # (AUTO) 2.2 K/uL (1.8-7.7); NEUTROPHILS % (AUTO) 58.5 % (40.0-70.0); PLATELET COUNT (AUTO) 128 K/uL (130-430); RED BLOOD CELL COUNT(AUTO) 3.83 MIL/uL (4.2-6.2); RED CELL DISTRIBUTION WIDTH 17.6 % (9.0-15.0); WHITE BLOOD COUNT (AUTO) 3.8 K/uL (4.8-10.8)
[2019-06-10 05:42] LABS: ALBUMIN 3.5 g/dL (3.4-4.8); CALCIUM 9.3 mg/dL (8.4-11.0); CREATININE 6.29 mg/dL (0.55-1.30); PHOSPHORUS 5.6 mg/dL (2.7-4.5); POTASSIUM 4.3 mmol/L (3.5-5.1); TOTAL BILIRUBIN 1.4 mg/dL (0.0-1.0)
[2019-06-10] MEDS: PIPERACILLIN/TAZO 2.25G/DEX-IS 50 ML IV SCH ×3 (06:35→20:58)
[2019-06-10 08:00] VITALS: BP_SYST 150
[2019-06-10] MEDS: BALSAM PERU/CASTOR OIL 60 GM OINT...G. TP SCH (09:51)
[2019-06-10] MEDS: EMOLLIENT COMBINATION NO.73 78 GM CREAM..G. TP SCH ×2 (09:52→20:57)
[2019-06-10 12:36] VITALS: BP_SYST 150
[2019-06-10 16:07] VITALS: BP_SYST 152
[2019-06-10 20:00] VITALS: BP_SYST 155
[2019-06-10] MEDS ORDERED: METOCLOPRAMIDE HCL 10 MG/2 ML VIAL IVP PRN (20:45)
[2019-06-11 00:12] VITALS: BP_SYST 159
[2019-06-11] MEDS: DIPHENHYDRAMINE INJ 50 MG/ML VIAL IVP PRN ×5 (01:52→17:36)
[2019-06-11] MEDS: HYDROmorphone 2 MG/ML VIAL IVP PRN ×7 (03:02→23:47)
[2019-06-11 04:00] VITALS: BP_SYST 184
[2019-06-11] MEDS: PIPERACILLIN/TAZO 2.25G/DEX-IS 50 ML IV SCH ×3 (06:03→22:55)
[2019-06-11 06:43] LABS: BASOPHILS % (AUTO) 0.6 % (0.0-2.0); EOSINOPHILS # (AUTO) 0.2 K/uL (0.0-0.4); HEMATOCRIT 36.9 % (36-48); HEMOGLOBIN 12.1 g/dL (12.0-16.0); LYMPHOCYTES % (AUTO) 23.2 % (20.5-51.5); MEAN CORPUSCULAR HEMOGLOBIN 32 pg (27-31); MEAN CORPUSCULAR HGB CONC 33 % (32-36); MEAN CORPUSCULAR VOLUME 98 fL (79.0-98.0); MONOCYTES # (AUTO) 0.3 K/uL (0.0-1.0); NEUTROPHILS # (AUTO) 2.6 K/uL (1.8-7.7); NEUTROPHILS % (AUTO) 63.2 % (40.0-70.0); PLATELET COUNT (AUTO) 114 K/uL (130-430); RED BLOOD CELL COUNT(AUTO) 3.76 MIL/uL (4.2-6.2); RED CELL DISTRIBUTION WIDTH 17.5 % (9.0-15.0); WHITE BLOOD COUNT (AUTO) 4.1 K/uL (4.8-10.8)
[2019-06-11 06:46] LABS: CALCIUM 9.7 mg/dL (8.4-11.0); PHOSPHORUS 6.1 mg/dL (2.7-4.5); POTASSIUM 4.4 mmol/L (3.5-5.1)
[2019-06-11 06:53] LABS: CREATININE 8.06 mg/dL (0.55-1.30)
[2019-06-11 07:36] VITALS: BP_SYST 137
[2019-06-11] MEDS: PANTOPRAZOLE SODIUM 40 MG TAB PO SCH (08:39)
[2019-06-11] MEDS: EMOLLIENT COMBINATION NO.73 78 GM CREAM..G. TP SCH ×2 (08:40→22:59)
[2019-06-11] MEDS: BALSAM PERU/CASTOR OIL 60 GM OINT...G. TP SCH (08:41)
[2019-06-11 12:53] VITALS: BP_SYST 154
[2019-06-11 16:41] VITALS: BP_SYST 141
[2019-06-11 20:00] VITALS: BP_SYST 177
[2019-06-11] MEDS ORDERED: DIPHENHYDRAMINE INJ 50 MG/ML VIAL IVP ONE (20:15)
[2019-06-12] MEDS: DIPHENHYDRAMINE INJ 50 MG/ML VIAL IVP PRN ×2 (03:16→08:08)
[2019-06-12] MEDS: HYDROmorphone 2 MG/ML VIAL IVP PRN ×2 (03:17→06:36)
[2019-06-12 04:17] VITALS: BP_SYST 163
[2019-06-12] MEDS: PIPERACILLIN/TAZO 2.25G/DEX-IS 50 ML IV SCH (06:37)
[2019-06-12 08:00] VITALS: BP_SYST 155
[2019-06-12] MEDS: PANTOPRAZOLE SODIUM 40 MG TAB PO SCH (08:07)
[2019-06-12] MEDS: EMOLLIENT COMBINATION NO.73 78 GM CREAM..G. TP SCH (09:00)
[2019-06-12] MEDS: BALSAM PERU/CASTOR OIL 60 GM OINT...G. TP SCH (09:00)
== END 2019-06-12 08:40 | disposition left against medical advice (07) | DRG 73 ==
LOC: SED 18:51 → STU 06-07 00:34 → SMU 06-09 22:18
PROVIDERS: ADMIT Internal Medicine; ATTEND Internal Medicine
PROC: 5A1D70Z Performance of Urinary Filtration, Intermittent, Less than 6 Hours Per Day (ICD-10-PCS; principal; 2019-06-07)
PROC: 5A1D70Z Performance of Urinary Filtration, Intermittent, Less than 6 Hours Per Day (ICD-10-PCS; 2019-06-09)
PROC: 5A1D70Z Performance of Urinary Filtration, Intermittent, Less than 6 Hours Per Day (ICD-10-PCS; 2019-06-11)
DX: E10.43 Type 1 diabetes mellitus with diabetic autonomic (poly)neuropathy (principal); N18.6 End stage renal disease; I13.2 Hypertensive heart and chronic kidney disease with heart failure and with stage 5 chronic kidney disease, or end stage renal disease; E87.70 Fluid overload, unspecified; E10.621 Type 1 diabetes mellitus with foot ulcer; E10.22 Type 1 diabetes mellitus with diabetic chronic kidney disease; I50.9 Heart failure, unspecified; K31.84 Gastroparesis; G89.4 Chronic pain syndrome; E87.5 Hyperkalemia; L97.519 Non-pressure chronic ulcer of other part of right foot with unspecified severity; D63.8 Anemia in other chronic diseases classified elsewhere; K76.1 Chronic passive congestion of liver; Z79.4 Long term (current) use of insulin; Z88.5 Allergy status to narcotic agent; Z88.8 Allergy status to other drugs, medicaments and biological substances; Z91.040 Latex allergy status; Z79.899 Other long term (current) drug therapy; Z90.49 Acquired absence of other specified parts of digestive tract; Z91.15 Patient's noncompliance with renal dialysis
CPT/HCPCS: 36415; 71045; 80048; 80053; 82962; 83605; 83880; 84100-TC; 84484; 84703; 85025; 85610-TC; 85730-TC; 87040-TC; 87081; 90935; 90937; 93005; 96374; 96375; 96376; 99285; G0378; J1170; J1200; J1815; J2405; J2543; J3010; J7030

== ENCOUNTER 2019-09-22 06:17 | Emergency (ER) | payer OTHER ==
[~2019-09-22] VITALS: Ht 170.2 cm; Wt 77.6 kg
[2019-09-22 06:40] VITALS: BP_SYST 140
--- NOTE | 2019-09-22 06:55 | NUR ---
Patient to ER bed 6 to gown for evaluation. Side rails up.
--- NOTE | 2019-09-22 06:56 | NUR ---
Pt BIB family to ED C/O pain from bilat swollen lower ext and abnormal labs from missing HD, K level elevated. Generalized pain " all over" No other complaints and or injuries noted In stable condition No s/s of acute distress Resting on gurney rails up
--- NOTE | 2019-09-22 06:59 | NUR ---
Dr. Shine bedside for Pt eval
[2019-09-22] MEDS ORDERED: DIPHENHYDRAMINE INJ 50 MG/ML VIAL IVP ONE (07:15)
[2019-09-22] MEDS ORDERED: MORPHINE 4 MG/ML INJ. SYRINGE IVP ONE (07:15)
[2019-09-22] MEDS ORDERED: VANCOMYCIN HCL 1,000 MG in NS 250 ML IV ONE (07:15)
--- NOTE | 2019-09-22 07:33 | NUR ---
Dr Shine spoke with pt regarding allergies. Dr boykin okayed order to give morphine 4mg along with Benadryl.
[2019-09-22] MEDS ORDERED: VANCOMYCIN HCL 1000 MG/VIAL IV ONE (07:40)
[2019-09-22 07:42] LABS: BASOPHILS % (AUTO) 0.3 % (0.0-2.0); EOSINOPHILS # (AUTO) 0.2 K/uL (0.0-0.4); EOSINOPHILS % (AUTO) 1.6 % (0.0-4.0); HEMATOCRIT 35.4 % (36-48); HEMOGLOBIN 11.4 g/dL (12.0-16.0); LYMPHOCYTES # (AUTO) 1.3 K/uL (1.0-5.5); LYMPHOCYTES % (AUTO) 10.4 % (20.5-51.5); MEAN CORPUSCULAR HEMOGLOBIN 31 pg (27-31); MEAN CORPUSCULAR HGB CONC 32 % (32-36); MEAN CORPUSCULAR VOLUME 97 fL (79.0-98.0); MONOCYTES # (AUTO) 0.9 K/uL (0.0-1.0); MONOCYTES % (AUTO) 7.7 % (1.7-9.3); NEUTROPHILS # (AUTO) 9.6 K/uL (1.8-7.7); PLATELET COUNT (AUTO) 101 K/uL (130-430); RED BLOOD CELL COUNT(AUTO) 3.64 MIL/uL (4.2-6.2); RED CELL DISTRIBUTION WIDTH 17.5 % (9.0-15.0)
[2019-09-22 07:55] LABS: CALCIUM 8.8 mg/dL (8.4-11.0); POTASSIUM 5.5 mmol/L (3.5-5.1)
[2019-09-22 07:58] LABS: INR 1.2 (0.8-1.2); PROTHROMBIN TIME 11.8 SECS (9.5-12.5)
[2019-09-22 08:05] LABS: ALBUMIN 3.4 g/dL (3.4-4.8); TOTAL BILIRUBIN 1.4 mg/dL (0.0-1.0)
[2019-09-22 08:06] LABS: CREATININE 8.72 mg/dL (0.55-1.30)
--- NOTE | 2019-09-22 09:00 | NUR ---
Pt asleep in [facility] at this time VSS
[2019-09-22] MEDS ORDERED: MAG HYDROX/AL HYDROX/SIMETH 30 ML, DICYCLOMINE HCL 20 MG, LIDOCAINE VISCOUS 2% 15ML (PO... PO ONE ×3 (09:30)
--- NOTE | 2019-09-22 10:30 | NUR ---
Pt resting, no distress noted.
[2019-09-22 11:05] VITALS: BP_SYST 116
--- NOTE | 2019-09-22 11:05 | NUR ---
Patient given written and verbal discharge instructions and verbalizes understanding. ER MD discussed with patient the results and treatment provided. Patient in stable condition. ID arm band removed. IV catheter removed intact and dressing applied, no active bleeding. Rx of Tylenol with Codeine given. Patient educated on pain management and to follow up with PMD. Pain Scale 0/10. Opportunity for questions provided and answered. Medication side effect fact sheet provided.
== END 2019-09-22 11:05 | disposition home or self-care (01) ==
LOC: SED 06:17
DX: L03.115 Cellulitis of right lower limb (principal); I13.2 Hypertensive heart and chronic kidney disease with heart failure and with stage 5 chronic kidney disease, or end stage renal disease; E10.22 Type 1 diabetes mellitus with diabetic chronic kidney disease; N18.6 End stage renal disease; I50.9 Heart failure, unspecified; Z99.2 Dependence on renal dialysis; Z79.4 Long term (current) use of insulin; Z91.040 Latex allergy status; Z88.5 Allergy status to narcotic agent; Z88.8 Allergy status to other drugs, medicaments and biological substances; Z79.899 Other long term (current) drug therapy
CPT/HCPCS: 36415; 71045; 80053; 82550; 83605; 83690; 83880; 84484; 84702; 85025; 85610; 85730; 93005; 93971; 96365; 96366; 96375; 99285; J1200; J2270; J3370

== ENCOUNTER 2020-01-21 07:28 | Emergency (ER) | payer OTHER ==
[~2020-01-21] VITALS: Ht 170.2 cm; Wt 74.8 kg
[2020-01-21 07:34] VITALS: BP_SYST 147
--- NOTE | 2020-01-21 07:35 | NUR ---
Patient to ER bed 5 to gown for evaluation. Side rails up. Report given to Amber PATEL.
--- NOTE | 2020-01-21 07:37 | NUR ---
Patient arrived in the ED c/o abdominal pain with nausea and vomiting for the last 2 days. Denied any chest pain or shortness of breath. Denied any fevers and chills. Patient is alert and oriented x4, respirations even and unlabored, speaking in full sentences, and ambulating with a steady gait. VSS, pain level 10/10. Informed of the approximate wait time. Instructed to notify ED staff for any changes in condition or worsening of symptoms while waiting to be seen by an ED provider. Patient verbalized understanding.
--- NOTE | 2020-01-21 07:46 | NUR ---
ER Dr. Perez at bedside examining patient.
--- NOTE | 2020-01-21 07:54 | NUR ---
manager technical sales at bedside collecting blood specimen as ordered by Dr. Perez. Patient tolerated the procedure well.
[2020-01-21] MEDS ORDERED: DIPHENHYDRAMINE INJ 50 MG/ML VIAL IM ONE (08:00)
[2020-01-21] MEDS ORDERED: PROCHLORPERAZINE EDISYLATE 10 MG/2 ML VIAL IM ONE (08:00)
[2020-01-21 08:14] LABS: BASOPHILS % (AUTO) 0.7 % (0.0-2.0); EOSINOPHILS # (AUTO) 0.3 K/uL (0.0-0.4); EOSINOPHILS % (AUTO) 3.8 % (0.0-4.0); HEMATOCRIT 32.2 % (36-48); HEMOGLOBIN 10.2 g/dL (12.0-16.0); LYMPHOCYTES # (AUTO) 1.5 K/uL (1.0-5.5); LYMPHOCYTES % (AUTO) 21.5 % (20.5-51.5); MEAN CORPUSCULAR HEMOGLOBIN 30 pg (27-31); MEAN CORPUSCULAR HGB CONC 32 % (32-36); MEAN CORPUSCULAR VOLUME 94 fL (79.0-98.0); MONOCYTES # (AUTO) 0.4 K/uL (0.0-1.0); MONOCYTES % (AUTO) 5.8 % (1.7-9.3); NEUTROPHILS # (AUTO) 4.7 K/uL (1.8-7.7); NEUTROPHILS % (AUTO) 68.2 % (40.0-70.0); PLATELET COUNT (AUTO) 169 K/uL (130-430); RED BLOOD CELL COUNT(AUTO) 3.43 MIL/uL (4.2-6.2); RED CELL DISTRIBUTION WIDTH 19.6 % (9.0-15.0); WHITE BLOOD COUNT (AUTO) 6.9 K/uL (4.8-10.8)
[2020-01-21 08:27] LABS: CALCIUM 8.7 mg/dL (8.4-11.0); CREATININE 6.01 mg/dL (0.55-1.30); POTASSIUM 4.9 mmol/L (3.5-5.1)
[2020-01-21 08:32] LABS: ALBUMIN 3.4 g/dL (3.4-4.8); TOTAL BILIRUBIN 0.5 mg/dL (0.0-1.0)
[2020-01-21] MEDS ORDERED: fentaNYL CITRATE/PF 100 MCG/2 ML AMP IM ONE (09:00)
--- NOTE | 2020-01-21 09:20 | NUR ---
Patient left AMA. Denied any respiratory distress at this time, speaking in full sentences and ambulated with a steady gait.
[2020-01-21 09:34] VITALS: BP_SYST 147
== END 2020-01-21 09:20 | disposition home or self-care (01) ==
LOC: SED 07:28
DX: F11.23 Opioid dependence with withdrawal (principal); R19.7 Diarrhea, unspecified; I13.2 Hypertensive heart and chronic kidney disease with heart failure and with stage 5 chronic kidney disease, or end stage renal disease; E10.22 Type 1 diabetes mellitus with diabetic chronic kidney disease; N18.6 End stage renal disease; I50.9 Heart failure, unspecified; Z99.2 Dependence on renal dialysis; J44.9 Chronic obstructive pulmonary disease, unspecified; Z86.2 Personal history of diseases of the blood and blood-forming organs and certain disorders involving the immune mechanism; Z79.899 Other long term (current) drug therapy; Z79.4 Long term (current) use of insulin; Z88.6 Allergy status to analgesic agent; Z91.040 Latex allergy status
CPT/HCPCS: 36415; 80053; 83690; 85025; 96372; 99284; J0780; J1200; J3010

== ENCOUNTER 2020-02-21 20:05 | Emergency (ER) | payer OTHER ==
[~2020-02-21] VITALS: Ht 170.2 cm; Wt 73.5 kg
[2020-02-21 20:20] VITALS: BP_SYST 129
--- NOTE | 2020-02-21 20:20 | NUR ---
Patient to ER bed 07 to gown for evaluation. Side rails up. Report given to AMANDA Melvin
--- NOTE | 2020-02-21 20:30 | NUR ---
Dr. Langford bedside for pt eval
--- NOTE | 2020-02-21 20:41 | NUR ---
Pt BIB family to ED C/O left head and left flank pain s/p fall 3 days ago after missing 3 steps at home. Not sure if she KO'd. Pt with Hx Cardiac Disorders (CHF), Hx Diabetes (Type I diabetes), Hx Hypertension, Hx Renal Disease (ESRD-HD ON TUESDAY, TUESDAY & TUESDAY) and Chronic back pain, chronic pain syndrome, anemia, pneumonia, retinopathy, and Cholecystectomy, Other (AV SHUNT) VSS no s/s of acute distress Resting on gurney rails up
[2020-02-21] MEDS ORDERED: HYDROcodone/ACETAMIN 5-325 MG TAB (NORCO/ VICODIN) PO ONE (20:45)
[2020-02-21] MEDS ORDERED: HYDROcodone/ACETAMIN 5-325 MG TAB (NORCO/ VICODIN) ONE (20:45)
--- NOTE | 2020-02-21 20:51 | NUR ---
Pt taken to Radiology in stable condition
--- NOTE | 2020-02-21 21:00 | NUR ---
Pt back from Radiology, well tolerated
--- NOTE | 2020-02-21 21:28 | NUR ---
Portable X Ray bedside, well tolerated
[2020-02-21 22:00] VITALS: BP_SYST 129
--- NOTE | 2020-02-21 22:00 | NUR ---
Patient given written and verbal discharge instructions and verbalizes understanding. ER MD discussed with patient the results and treatment provided. Patient in stable condition. ID arm band removed. Rx of [place] given. Patient educated on pain management and to follow up with PMD. Pain Scale 0/10 Opportunity for questions provided and answered. Medication side effect fact sheet provided.
== END 2020-02-21 22:00 | disposition home or self-care (01) ==
LOC: SED 20:05
DX: S00.03XA Contusion of scalp, initial encounter (principal); S40.012A Contusion of left shoulder, initial encounter; I13.11 Hypertensive heart and chronic kidney disease without heart failure, with stage 5 chronic kidney disease, or end stage renal disease; E10.22 Type 1 diabetes mellitus with diabetic chronic kidney disease; N18.6 End stage renal disease; J44.9 Chronic obstructive pulmonary disease, unspecified; E10.319 Type 1 diabetes mellitus with unspecified diabetic retinopathy without macular edema; Z90.49 Acquired absence of other specified parts of digestive tract; Z79.899 Other long term (current) drug therapy; Z79.4 Long term (current) use of insulin; Z91.040 Latex allergy status; Z88.6 Allergy status to analgesic agent; W18.39XA Other fall on same level, initial encounter; Y93.89 Activity, other specified; Y92.89 Other specified places as the place of occurrence of the external cause; Y99.8 Other external cause status
CPT/HCPCS: 70450-TC; 73030; 76376; 99284

== ENCOUNTER 2020-03-21 11:50 | Emergency (ER) | payer OTHER ==
[2020-03-21] MEDS ORDERED: HYDROcodone/ACETAMIN 5-325 MG TAB (NORCO/ VICODIN) ONE (14:44)
[2020-03-24 16:16] LABS: BASOPHILS % (AUTO) 0.6 % (0.0-2.0); EOSINOPHILS # (AUTO) 0.1 K/uL (0.0-0.4); EOSINOPHILS % (AUTO) 1.8 % (0.0-4.0); HEMOGLOBIN 12.9 g/dL (12.0-16.0); LYMPHOCYTES # (AUTO) 1.7 K/uL (1.0-5.5); LYMPHOCYTES % (AUTO) 21.7 % (20.5-51.5); MEAN CORPUSCULAR HEMOGLOBIN 30 pg (27-31); MEAN CORPUSCULAR HGB CONC 32 % (32-36); MEAN CORPUSCULAR VOLUME 94 fL (79.0-98.0); MONOCYTES # (AUTO) 0.3 K/uL (0.0-1.0); MONOCYTES % (AUTO) 4.3 % (1.7-9.3); NEUTROPHILS # (AUTO) 5.6 K/uL (1.8-7.7); NEUTROPHILS % (AUTO) 71.6 % (40.0-70.0); PLATELET COUNT (AUTO) 140 K/uL (130-430); RED BLOOD CELL COUNT(AUTO) 4.26 MIL/uL (4.2-6.2); RED CELL DISTRIBUTION WIDTH 16.5 % (9.0-15.0)
[2020-03-24 16:17] LABS: WHITE BLOOD COUNT (AUTO) 7.8 K/uL (4.8-10.8)
[2020-03-24 16:18] LABS: INR 1.3 (0.8-1.2); PROTHROMBIN TIME 11.6 SECS (9.5-12.5)
[2020-03-24 16:20] LABS: CREATININE 10.43 mg/dL (0.55-1.30); POTASSIUM 7.6 mmol/L (3.5-5.1); TOTAL BILIRUBIN 0.6 mg/dL (0.0-1.0)
[2020-03-24 16:21] LABS: ALBUMIN 3.9 g/dL (3.4-4.8)
== END 2020-03-21 14:32 | disposition home or self-care (01) ==
LOC: SED 11:50
DX: M86.8X7 Other osteomyelitis, ankle and foot (principal)
CPT/HCPCS: 36415; 80053; 84484; 85025; 85610-TC; 85730-TC; 87040-TC; 87086; 93005; 99284; 99285

== ENCOUNTER 2020-07-16 02:03 | Emergency (ER) | payer OTHER, SELFPAY ==
[~2020-07-16] VITALS: Ht 170.2 cm; Wt 83.5 kg
[2020-07-16 02:05] VITALS: BP_SYST 169
[2020-07-16 03:10] LABS: BASOPHILS % (AUTO) 0.2 % (0.0-2.0); EOSINOPHILS # (AUTO) 0.2 K/uL (0.0-0.4); EOSINOPHILS % (AUTO) 2.8 % (0.0-4.0); HEMATOCRIT 38.8 % (36-48); HEMOGLOBIN 12.6 g/dL (12.0-16.0); LYMPHOCYTES # (AUTO) 1.2 K/uL (1.0-5.5); LYMPHOCYTES % (AUTO) 21.4 % (20.5-51.5); MEAN CORPUSCULAR HEMOGLOBIN 32 pg (27-31); MEAN CORPUSCULAR HGB CONC 32 % (32-36); MEAN CORPUSCULAR VOLUME 99 fL (79.0-98.0); MONOCYTES # (AUTO) 0.4 K/uL (0.0-1.0); MONOCYTES % (AUTO) 6.5 % (1.7-9.3); NEUTROPHILS # (AUTO) 3.9 K/uL (1.8-7.7); NEUTROPHILS % (AUTO) 69.1 % (40.0-70.0); PLATELET COUNT (AUTO) 129 K/uL (130-430); RED BLOOD CELL COUNT(AUTO) 3.92 MIL/uL (4.2-6.2); RED CELL DISTRIBUTION WIDTH 15.2 % (9.0-15.0); WHITE BLOOD COUNT (AUTO) 5.6 K/uL (4.8-10.8)
[2020-07-16] MEDS ORDERED: fentaNYL CITRATE/PF 100 MCG/2 ML AMP IVP ONE ×2 (03:15→04:00)
[2020-07-16 03:21] LABS: CALCIUM 7.2 mg/dL (8.4-11.0); CREATININE 5.56 mg/dL (0.55-1.30); POTASSIUM 4.8 mmol/L (3.5-5.1)
[2020-07-16 03:24] LABS: PROTHROMBIN TIME 10.7 SECS (9.5-12.5)
[2020-07-16 03:27] LABS: ALBUMIN 3.7 g/dL (3.4-4.8); TOTAL BILIRUBIN 0.7 mg/dL (0.0-1.0)
[2020-07-16] MEDS ORDERED: PERC10 PO (03:44)
[2020-07-16] MEDS ORDERED: SSNOVOLOG SUBCUT (03:44)
[2020-07-16] MEDS ORDERED: METO25TA3 PO (03:44)
[2020-07-16] MEDS ORDERED: fentaNYL CITRATE/PF 100 MCG/2 ML AMP ONE (04:07)
[2020-07-16 04:31] LABS: BILIRUBIN,URINE 2+ (NEGATIVE); BLOOD, URINE 3+ (NEGATIVE); CLARITY/URINE TURBID (CLEAR); COLOR,URINE BROWN (YELLOW); GLUCOSE,URINE NEGATIVE (NEGATIVE); KETONES,URINE TRACE (NEGATIVE); LEUKOCYTE ESTERASE ,URINE 3+ (NEGATIVE); NITRITE, URINE POSITIVE (NEGATIVE); PH,URINE 6.5 (5.0-8.0); PROTEIN URINE 2+ (NEGATIVE)
[2020-07-16 05:29] LABS: BACTERIA,URINE MANY /HPF (None Seen); RBC,URINE 50-80 /HPF (0-3); WBC,URINE >100 /HPF (0-3)
[2020-07-16 05:47] VITALS: BP_SYST 151
== END 2020-07-16 05:47 | disposition left against medical advice (07) ==
LOC: SED 02:03
DX: E83.51 Hypocalcemia (principal); R10.13 Epigastric pain; I13.2 Hypertensive heart and chronic kidney disease with heart failure and with stage 5 chronic kidney disease, or end stage renal disease; E11.22 Type 2 diabetes mellitus with diabetic chronic kidney disease; N18.6 End stage renal disease; I50.9 Heart failure, unspecified; Z86.2 Personal history of diseases of the blood and blood-forming organs and certain disorders involving the immune mechanism; Z79.899 Other long term (current) drug therapy; Z88.6 Allergy status to analgesic agent; Z91.040 Latex allergy status; Z90.49 Acquired absence of other specified parts of digestive tract; Z20.822 Contact with and (suspected) exposure to COVID-19
CPT/HCPCS: 36415; 74176; 76376; 80053; 81000; 82150; 83690; 84100; 85025; 85610; 87081; 87086; 87426; 93005; 96374; 96376; 99285; J3010